=== PATIENT | male | born 1955 | race Caucasian/White ===

== ENCOUNTER 2016-11-26 11:59 | Inpatient (IN) | payer OTHER ==
[2016-11-26 12:20] VITALS: RESP 20
--- NOTE | 2016-11-26 14:07 | C.PDOC ---
History Of Present Illness 61M c/o diffuse abd pain x3 days, worse today. took "liquid" yesterday that made him have diarrhea. no n/v. subjective fever last night. pmh dm, htn, hlp, HIV not on meds but says counts always undetectable every 3 months since 2000. Time Seen by Provider: 11/26/16 14:05 Chief Complaint (Nursing): Abdominal Pain Past Medical History Vital Signs: Last Vital Signs Temp 98.2 F 11/26/16 12:17 Pulse 110 H 11/26/16 12:17 Resp 20 11/26/16 12:17 BP 194/118 H 11/26/16 12:17 Pulse Ox 100 11/26/16 14:27 - Medical History PMH: Arthritis, Diabetes, HIV (undetectable), HTN, Hypercholesterolemia - [facility] Procedures ULTRASONOGRAPHY OF RIGHT AND LEFT HEART, TRANSESOPHAGEAL (09/10/16) Family History: States: Diabetes - Social History Hx Tobacco Use: Yes (1/2 pack daily) Hx Alcohol Use: No Hx Substance Use: No - Immunization History Hx Tetanus Toxoid Vaccination: Yes Hx Influenza Vaccination: Yes Hx Pneumococcal Vaccination: Yes Review Of Systems Except As Marked, All Systems Reviewed And Found Negative. Constitutional: Positive for: Fever, Malaise Cardiovascular: Negative for: Chest Pain Respiratory: Negative for: Cough, Shortness of Breath Gastrointestinal: Positive for: Abdominal Pain, Diarrhea. Negative for: Nausea , Vomiting, Melena, Hematochezia Genitourinary: Negative for: Dysuria, Frequency, Incontinence Neurological: Negative for: Weakness, Numbness, Headache Physical Exam - Physical Exam Appears: Well, Non-toxic, No Acute Distress Skin: Warm, Dry Head: Atraumatic Eye(s): bilateral: PERRL Oral Mucosa: Dry Tongue: No Lesions Cardiovascular: Rhythm Regular Respiratory: No Decreased Breath Sounds, No Accessory Muscle Use, No Rales, No Rhonchi, No Wheezing Gastrointestinal/Abdominal: Bowel Sounds, Soft, Tenderness (diffuse mainly LLQ) , No Distention, No Guarding, No Rebound Extremity: No Swelling Pulses: Left Radial: Normal, Right Radial: Normal Neurological/Psych: Oriented x3, Other (no focal deficits) ED Course And Treatment - Laboratory Results Result Diagrams: 11/26/16 14:47 11/26/16 14:47 O2 Sat by Pulse Oximetry: 100 Disposition - Disposition Disposition: HOSPITALIZED Disposition Time: 16:53 Condition: STABLE - Clinical Impression Clinical Impression: Pancreatitis
[2016-11-26] MEDS ORDERED: Sodium Chloride 0.9% 1,000 ML IV ONE (14:23)
[2016-11-26 14:51] LABS: BASO # 0.1 K/uL (0.0-0.2); BASO % 0.7 % (0.0-2.0); EOS # 0.1 K/uL (0.0-0.7); HEMATOCRIT 46.7 % (35.0-51.0); LYMPH # 1.7 K/uL (1.0-4.3); LYMPH % 13.4 % (20.0-40.0); MEAN CELL VOLUME 87.1 fL (80.0-94.0); MEAN CORPUSCULAR HEMOGLOBIN 30.7 pg (27.0-31.0); MEAN CORPUSCULAR HGB CONC 35.3 g/dL (33.0-37.0); MEAN PLATELET VOLUME 9.1 fL (7.2-11.7); MONO # 0.8 K/uL (0.0-0.8); MONO % 6.6 % (0.0-10.0); NRBC % 0.1 % (0.0-2.0); WHITE BLOOD COUNT 12.4 K/uL (4.8-10.8)
[2016-11-26 14:56] LABS: GRANULAR CAST 1 /lpf (0-1); RBC URINE 11 /hpf (0-3); URINE BILIRUBIN NEGATIVE (NEGATIVE); URINE BLOOD 1+ (NEGATIVE); URINE COLOR Yellow (YELLOW); URINE GLUCOSE (UA) 3+ mg/dL (Normal); URINE HYALINE CAST 0-2 /lpf (0-2); URINE KETONE NEGATIVE (NEGATIVE); URINE LEUKOCYTE ESTERASE NEG Leu/uL (Negative); URINE PROTEIN 2+ mg/dL (NEGATIVE); WBC URINE 2 /hpf (0-5)
[2016-11-26] MEDS ORDERED: Morphine 4 MG/ML VIAL ONE (14:58)
[2016-11-26 15:08] LABS: CHLORIDE 87 mmol/L (98-107); POTASSIUM 4.5 mmol/L (3.6-5.2); SODIUM 131 mmol/L (132-148)
[2016-11-26 15:10] LABS: GFR AFRICAN-AMERICAN > 60
[2016-11-26 15:11] LABS: ALKALINE PHOSPHATASE 99 U/L (38-126); ALT/SGPT 59 U/L (21-72); AST/SGOT 25 U/L (17-59); BILIRUBIN,TOTAL 1.2 mg/dL (0.2-1.3); BLOOD UREA NITROGEN 13 mg/dL (9-20); CALCIUM 9.2 mg/dl (8.6-10.4); CARBON DIOXIDE 31 mmol/L (22-30); GLUCOSE,RANDOM 335 mg/dL (75-110); TOTAL PROTEIN 8.5 g/dL (6.3-8.3)
[2016-11-26] MEDS ORDERED: Iodixanol 320 MG/ML 200 ML BOTTLE IV ONE (15:31)
--- NOTE | 2016-11-26 16:50 | CT ---
PROCEDURE: CT Abdomen and Pelvis with contrast HISTORY: Abdominal pain mainly LLQ COMPARISON: None. TECHNIQUE: Multidetector CT scan of the abdomen and pelvis was performed after intravenous administration of contrast. Oral contrast was not administered. Contrast dose: 100 ML VISIPAQUE 320 Radiation dose: Total exam DLP = 708.73 mGy-cm. FINDINGS: LOWER THORAX: There is bibasilar subsegmental atelectasis do. LIVER: There is mild hepatomegaly and diffuse fatty infiltration in the liver. There is no focal lesion or intrahepatic biliary ductal dilatation. GALLBLADDER AND BILE DUCTS: There are no calcified gallstones, wall thickening or pericholecystic fluid. PANCREAS: The pancreas is normal in size and there is homogeneous enhancement without calcifications or ductal dilatation. SPLEEN: There is mild splenomegaly. There is no focal lesion. ADRENALS: Both adrenal glands are normal in size without discrete nodule. KIDNEYS AND URETERS: Both kidneys are normal in size and there is homogeneous enhancement. There are small cortical cyst in bone kidneys. There is nonspecific perinephric fat stranding. VASCULATURE: Normal in caliber. No aortic aneurysm. BOWEL: The small bowel loops are normal in caliber. There is sigmoid diverticulosis without CT evidence for acute diverticulitis. APPENDIX: Normal appendix. PERITONEUM: No free fluid. No free air. LYMPH NODES: Unremarkable. No enlarged lymph nodes. BLADDER: Normal in appearance. REPRODUCTIVE: There is mild enlargement of the prostate gland. BONES: There are bilateral pars interarticularis defects at L5 with grade 1 anterior listhesis of L5 on S1 and disc desiccation. . There is a focal area of sclerosis in the left humeral head statistically most compatible with a bone island. OTHER FINDINGS: There are bilateral small fat containing inguinal hernias. There is a small sliding hiatal hernia. IMPRESSION: 1. Mild hepatosplenomegaly and hepatic steatosis. 2. Sigmoid diverticulosis without CT evidence for acute diverticulitis. 3. Additional comments as described above.
--- NOTE | 2016-11-26 18:30 | US ---
HISTORY: pancreatitis, abd pain COMPARISON: None. TECHNIQUE: Sonographic evaluation of the right upper quadrant of the abdomen. FINDINGS: LIVER: Measures 19.3 cm in length there is diffuse increased echogenicity of the liver parenchyma. No mass. No intrahepatic bile duct dilatation. GALLBLADDER: No gallstones, wall thickening or pericholecystic fluid. COMMON BILE DUCT: Measures 5 mm. No stones. No dilatation. PANCREAS: The visualized pancreas is heterogeneous. There is no ductal dilatation. The tail of the pancreas could not be evaluated. RIGHT KIDNEY: Measures 12.8 cm in length. Normal echogenicity. No calculus, mass, or hydronephrosis. There is a 0.7 x 0.5 x 0.6 cm cyst in the upper pole and a 0.7 x 0.4 x 0.5 cm cyst in the interpolar region. AORTA: No aneurysmal dilatation. IVC: Unremarkable. OTHER FINDINGS: None . IMPRESSION: Limited evaluation of the pancreas reveals heterogeneous echotexture, nonspecific. No ductal dilatation of fluid collection. Mild hepatomegaly. Diffuse increased echogenicity in the liver may reflect hepatic steatosis however parenchymal infectious/ inflammatory etiologies cannot be entirely excluded. Clinical and laboratory correlation is advised. No cholelithiasis or biliary dilatation.
--- NOTE | 2016-11-26 19:29 | CP.PCM.HP ---
Present on Admission - Present on Admission Any Indicators Present on Admission: No Past Patient History - Infectious Disease Hx of Infectious Diseases: None - Past Medical History & Family History Past Medical History?: Yes - Past Social History Smoking Status: Heavy Smoker > 10 Cigarettes Daily - CARDIAC Hx Hypercholesterolemia: Yes Hx Hypertension: Yes - PULMONARY Hx Respiratory Disorders: No - NEUROLOGICAL Hx Neurological Disorder: No - HEENT Hx HEENT Problems: No - RENAL Hx Chronic Kidney Disease: No - ENDOCRINE/METABOLIC Hx Diabetes Mellitus Type 2: Yes - HEMATOLOGICAL/ONCOLOGICAL Hx Human Immunodeficiency Virus (HIV): Yes (undetectable) - INTEGUMENTARY Hx Dermatological Problems: No - MUSCULOSKELETAL/RHEUMATOLOGICAL Hx Arthritis: Yes - GASTROINTESTINAL Hx Gastrointestinal Disorders: No - GENITOURINARY/GYNECOLOGICAL Hx Genitourinary Disorders: No - PSYCHIATRIC Hx Substance Use: No - SURGICAL HISTORY Hx Surgeries: Yes Hx Cardiac Catheterization: Yes (3 yrs ago normal) Hx Vascular Surgery: No - ANESTHESIA Hx Anesthesia: No Hx Anesthesia Reactions: No Hx Malignant Hyperthermia: No Meds Home Medications: Home Medication List Medication Instructions Recorded Confirmed Type Lisinopril [Zestril] 10 mg PO DAILY #30 tab 11/28/16 Rx amLODIPine [Norvasc] 10 mg PO DAILY tab 11/28/16 Rx amLODIPine [Norvasc] 10 mg PO STAT #30 tab 11/28/16 Rx Allergies/Adverse Reactions: Allergies Allergy/AdvReac Type Severity Reaction Status Date / Time No Known Allergies Allergy Verified 11/26/16 12:16 Results - Vital Signs Recent Vital Signs: Last Vital Signs Temp 97.7 F 11/26/16 19:00 Pulse 97 H 11/26/16 19:00 Resp 20 11/26/16 19:00 BP 149/94 H 11/26/16 19:00 Pulse Ox 97 11/26/16 19:00 - Labs Result Diagrams: 11/26/16 14:47 11/27/16 11:33 Assessment & Plan - Assessment and Plan (Free Text) Plan: lisinoril metformin protonix lovenox other med no abtibiotic yet id ocnsult with dr. kathy esposito same no other complaints dr. farias for abd pain npo ivf
[2016-11-26] MEDS ORDERED: Potassium Ch 20mEq in D5-1/2NS 1,000 ML IV SCH (19:30)
[2016-11-27] MEDS ORDERED: Sodium Chloride 0.9% 1,000 ML IV SCH ×3 (06:45→11:24)
[2016-11-27] MEDS: (Novolin R) Insulin Human Regular 100 units/ml vial SC SCH ×4 (08:30→21:14)
--- NOTE | 2016-11-27 09:39 | CP.PCM.CON ---
<Luz Thornton - Last Filed: 11/27/16 09:39> History of Present Illness - History of Present Illness History of Present Illness: Gastroenterology Fellow/PGY4 Consult Note 61 year old male with history of Diabetes, Hypertension, Hyperlipidemia, Arthritis, TIA, and HIV not on HAART therapy followed by Dr. Orosco presenting with abdominal pain. Patient describes URI 1.5 weeks ago, self treated with ten packs of extra strength tylenol, three packs of OTC antibiotics from [place], and two bottles of Nyquil. During this time he did not have a bowel movement and developed abdominal pain four days ago. He took Mg citrate three days ago with resultant recurrent diarrheal episodes for 24 hours. the pain subsided slightly. Yesterday, he had chicken broth followed by severe bilateral upper abdomen pain leading to ER presentation. No prior EGD or colonoscopy. Associated sweats today but notes pain is slightly improved, pain scale 6-7/10. Denies acid reflux, indigestion, bloating, heartburn, dysphagia, odynophagia, hematemesis, melena, hematochezia, or weight loss. Admits to daily Motrin use of two tablets for arthritis. No prior EGD or colonoscopy. Notes HIV has been undetectable since 2000 with follow up appointment with Dr. Orosco on 12/10/16. EGD approximately 39 years of age endorsed to have PUD. No prior colonoscopy. Family-denies colon cancer, liver cancer Social-1/2ppd since 13 years old, social alcohol use, marijuana as a teenager Surgery- catheterization 2 years ago Review of Systems - Review of Systems Review of Systems: A 12-poin treview of systems negative except for as above Past Patient History - Infectious Disease Hx of Infectious Diseases: None - Past Medical History & Family History Past Medical History?: Yes - Past Social History Smoking Status: Heavy Smoker > 10 Cigarettes Daily - CARDIAC Hx Hypercholesterolemia: Yes Hx Hypertension: Yes - PULMONARY Hx Respiratory Disorders: No - NEUROLOGICAL Hx Neurological Disorder: No - HEENT Hx HEENT Problems: No - RENAL Hx Chronic Kidney Disease: No - ENDOCRINE/METABOLIC Hx Diabetes Mellitus Type 2: Yes - HEMATOLOGICAL/ONCOLOGICAL Hx Human Immunodeficiency Virus (HIV): Yes (undetectable) - INTEGUMENTARY Hx Dermatological Problems: No - MUSCULOSKELETAL/RHEUMATOLOGICAL Hx Arthritis: Yes - GASTROINTESTINAL Hx Gastrointestinal Disorders: No - GENITOURINARY/GYNECOLOGICAL Hx Genitourinary Disorders: No - PSYCHIATRIC Hx Substance Use: No - SURGICAL HISTORY Hx Surgeries: Yes Hx Cardiac Catheterization: Yes (3 yrs ago normal) Hx Vascular Surgery: No - ANESTHESIA Hx Anesthesia: No Hx Anesthesia Reactions: No Hx Malignant Hyperthermia: No Meds Allergies/Adverse Reactions: Allergies Allergy/AdvReac Type Severity Reaction Status Date / Time No Known Allergies Allergy Verified 11/26/16 12:16 - Medications Medications: Current Medications Enoxaparin Sodium (Lovenox) 30 mg SC DAILY [facility] Gabapentin (Neurontin) 400 mg PO BID [facility] Potassium Chloride/Dextrose/Sod Cl (Potassium Chl 20 Meq In D5-1/2ns) 1,000 mls @ 60 mls/hr IV .[id number] [facility] Last Admin: 11/26/16 21:22 Dose: 60 mls/hr Sodium Chloride (Sodium Chloride 0.9%) 1,000 mls @ 175 mls/hr IV .Q5H43M [facility] Last Admin: 11/27/16 08:48 Dose: 175 mls/hr Influenza Virus Vaccine (Afluria) 45 mcg IM .ONCE ONE Stop: 11/28/16 10:01 Insulin Human Regular (Novolin R) 0 unit SC ACHS [facility] PRN Reason: Protocol Last Admin: 11/27/16 08:30 Dose: Not Given Lisinopril (Zestril) 5 mg PO DAILY [facility] Pantoprazole Sodium (Protonix Inj) 40 mg IVP DAILY [facility] Rosuvastatin Calcium (Crestor) 5 mg PO HS [facility] Last Admin: 11/26/16 21:21 Dose: 5 mg Physical Exam - Constitutional Appears: Non-toxic, No Acute Distress - Head Exam Head Exam: ATRAUMATIC, NORMOCEPHALIC - Eye Exam Eye Exam: EOMI, PERRL Pupil Exam: PERRL. absent: Miosis, Mydriatic - ENT Exam ENT Exam: Mucous Membranes Moist, Normal Oropharynx - Neck Exam Neck exam: Positive for: Full Rom, Normal Inspection - Respiratory Exam Respiratory Exam: Clear to Auscultation Bilateral. absent: Rales, Rhonchi, Wheezes - Cardiovascular Exam Cardiovascular Exam: RRR, +S1, +S2. absent: Gallop, Rubs - GI/Abdominal Exam GI & Abdominal Exam: Normal Bowel Sounds, Soft, Tenderness. absent: Distended, Firm, Guarding, Organomegaly, Rebound, Rigid Additional comments: epigastric tenderness to palpation, negative Jones's sign - Extremities Exam Extremities exam: Positive for: full ROM. Negative for: pedal edema - Neurological Exam Neurological exam: Alert - Psychiatric Exam Psychiatric exam: Normal Affect, Normal Mood - Skin Skin Exam: Dry, Intact, Normal Color, Warm Results - Vital Signs Recent Vital Signs: Last Vital Signs Temp 98.0 F 11/27/16 07:48 Pulse 83 11/27/16 07:48 Resp 20 11/27/16 07:48 BP 155/102 H 11/27/16 07:48 Pulse Ox 97 11/27/16 07:48 - Labs Result Diagrams: 11/26/16 14:47 11/26/16 14:47 Labs: Laboratory Results - last 24 hr 11/26/16 11/27/16 21:23 06:55 POC Glucose (mg/dL) 202 H 208 H Assessment & Plan - Assessment and Plan (Free Text) Assessment: 61 year old male with history of Diabetes, Hypertension, Hyperlipidemia, Arthritis, TIA, and HIV not on HAART therapy followed by Dr. Orosco presenting with abdominal pain. CT A/P and Ultrasound without gallstones, biliary dilatation, or inflammatory changes of pancreas. EGD at approximately 39 years of age endorsed to have PUD. No prior colonoscopy. Chemical pancreatitis Abdominal pain Plan: >multiple medications consumed with self treatment of recent URI followed by Mg citrate >elevated lipase, epigastric pain with deep radiation to back >continue supportive care: IVFs, PPI >advance diet as tolerated >trial clear liquids >counselled on NSAID use and endorsed history of PUD >benefit from elective endoscopic evaluation >if symptoms persist inpatient , may consider inpatient evaluation, otherwise outpatient follow up >further recommendations based on clinical course <Olvin Martínez - Last Filed: 11/27/16 14:56> Meds - Medications Medications: Current Medications Acetaminophen (Tylenol 325mg Tab) 650 mg PO Q6 PRN PRN Reason: Headache Last Admin: 11/27/16 10:45 Dose: 650 mg Docusate Sodium (Colace) 100 mg PO DAILY [facility] Last Admin: 11/27/16 13:02 Dose: 100 mg Enoxaparin Sodium (Lovenox) 30 mg SC DAILY [facility] Last Admin: 11/27/16 10:44 Dose: 30 mg Gabapentin (Neurontin) 400 mg PO BID [facility] Last Admin: 11/27/16 10:44 Dose: 400 mg Sodium Chloride (Sodium Chloride 0.45%) 1,000 mls @ 150 mls/hr IV .Q6H40M ONE Stop: 11/27/16 18:03 Last Admin: 11/27/16 12:47 Dose: 150 mls/hr Influenza Virus Vaccine (Afluria) 45 mcg IM .ONCE ONE Stop: 11/28/16 10:01 Insulin Human Regular (Novolin R) 0 unit SC ACHS [facility] PRN Reason: Protocol Last Admin: 11/27/16 12:45 Dose: 1 unit Lisinopril (Zestril) 5 mg PO DAILY [facility] Last Admin: 11/27/16 10:44 Dose: 5 mg Lisinopril (Zestril) 10 mg PO DAILY [facility] Pantoprazole Sodium (Protonix Inj) 40 mg IVP DAILY [facility] Last Admin: 11/27/16 10:45 Dose: 40 mg Rosuvastatin Calcium (Crestor) 5 mg PO HS [facility] Last Admin: 11/26/16 21:21 Dose: 5 mg Simethicone (Mylicon Chew Tab) 80 mg PO DAILY [facility] Last Admin: 11/27/16 13:02 Dose: 80 mg Results - Vital Signs Recent Vital Signs: Last Vital Signs Temp 98.0 F 11/27/16 07:48 Pulse 83 11/27/16 07:48 Resp 20 11/27/16 07:48 BP 155/102 H 11/27/16 07:48 Pulse Ox 97 11/27/16 07:48 - Labs Result Diagrams: 11/26/16 14:47 11/27/16 11:33 Labs: Laboratory Results - last 24 hr 11/26/16 11/27/16 11/27/16 21:23 06:55 11:15 Sodium Potassium Chloride Carbon Dioxide Anion Gap BUN Creatinine Est GFR ( Amer) Est GFR (Non-Af Amer) POC Glucose (mg/dL) 202 H 208 H 288 H Random Glucose Calcium Lipase 11/27/16 11:33 Sodium 129 L Potassium 4.0 Chloride 90 L Carbon Dioxide 28 Anion Gap 16 BUN 13 Creatinine 0.7 L Est GFR ( Amer) > 60 Est GFR (Non-Af Amer) > 60 POC Glucose (mg/dL) Random Glucose 307 H Calcium 8.8 Lipase 264 Attending/Attestation - Attestation I have personally seen and examined this patient.: Yes I have fully participated in the care of the patient.: Yes I have reviewed all pertinent clinical information: Yes Notes (Text): Patient seen and examined with GI fellow. Agree with her note as documented above with the following additions/exceptions. This is a 61 year old male with h/o HTN, DM, HIV who presents to hospital with complaint of abdominal pain. He is found to have mild chemical pancreatitis with normal pancreas on imaging. Abdominal sonogram without evidence of gallstones. He reports diarrhea in relation to taking magnesium citrate for constipation. He does admit to daily NSAID usage. He states that his abdominal pain is overall improved today. No nausea or vomiting. Will start on trial of clear liquids. Pain control, antiemetic therapy as needed. Continue PPI therapy for possibility of PUD/ gastritis. He would benefit from outpatient screening colonoscopy. Will continue to follow and make recommendations depending on patient's clinical course. 11/27/16 14:52
[2016-11-27] MEDS ORDERED: Pantoprazole 40 mg EC Tab PO SCH (10:00)
[2016-11-27] MEDS ORDERED: Enoxaparin 40 mg Syringe SC SCH (10:00)
[2016-11-27] MEDS: Enoxaparin 30 mg Syringe SC SCH (10:44)
[2016-11-27] MEDS ORDERED: Sodium Chloride 0.45% 1,000 ML IV ONE (11:24)
[2016-11-27 11:57] LABS: CHLORIDE 90 mmol/L (98-107); SODIUM 129 mmol/L (132-148)
[2016-11-27 12:00] LABS: BLOOD UREA NITROGEN 13 mg/dL (9-20); CARBON DIOXIDE 28 mmol/L (22-30); GFR AFRICAN-AMERICAN > 60
[2016-11-27 12:01] LABS: CALCIUM 8.8 mg/dl (8.6-10.4); GLUCOSE,RANDOM 307 mg/dL (75-110)
--- NOTE | 2016-11-27 12:08 | CP.PCM.PN ---
<Shazia Gutiérrez H - Last Filed: 11/27/16 12:04> Subjective - Date & Time of Evaluation Date of Evaluation: 11/27/16 Time of Evaluation: 08:05 - Subjective Subjective: PGY2 Medicine Note - Dr. Thom Tanner: Patient is a 61 year old male with PMHx of arthritis, DM, HIV, HTN and hyperlipidemia admitted to hospital for pancreatitis last night. Patient reports abdominal pain radiating to his back intermittently for many weeks which has worsened over the past 5 days. Patient says he has been constipated. He took a laxative 3 days ago and had a lot of diarrhea. Patient denies alcohol use since [place]. Patient denies fever, chills, chest pain, SOB , nausea, vomiting, dysuria. Objective - Vital Signs/Intake and Output Vital Signs (last 24 hours): Temp Pulse Resp BP Pulse Ox 98.0 F 83 20 155/102 H 97 11/27/16 07:48 11/27/16 07:48 11/27/16 07:48 11/27/16 07:48 11/27/16 07:48 Intake and Output: 11/27/16 11/27/16 06:59 18:59 Intake Total 700 Balance 700 - Medications Medications: Current Medications Acetaminophen (Tylenol 325mg Tab) 650 mg PO Q6 PRN PRN Reason: Headache Last Admin: 11/27/16 10:45 Dose: 650 mg Enoxaparin Sodium (Lovenox) 30 mg SC DAILY [facility] Last Admin: 11/27/16 10:44 Dose: 30 mg Gabapentin (Neurontin) 400 mg PO BID [facility] Last Admin: 11/27/16 10:44 Dose: 400 mg Sodium Chloride (Sodium Chloride 0.45%) 1,000 mls @ 150 mls/hr IV .Q6H40M ONE Stop: 11/27/16 18:03 Influenza Virus Vaccine (Afluria) 45 mcg IM .ONCE ONE Stop: 11/28/16 10:01 Insulin Human Regular (Novolin R) 0 unit SC ACHS [facility] PRN Reason: Protocol Last Admin: 11/27/16 08:30 Dose: Not Given Lisinopril (Zestril) 5 mg PO DAILY [facility] Last Admin: 11/27/16 10:44 Dose: 5 mg Lisinopril (Zestril) 10 mg PO DAILY [facility] Pantoprazole Sodium (Protonix Inj) 40 mg IVP DAILY [facility] Last Admin: 11/27/16 10:45 Dose: 40 mg Rosuvastatin Calcium (Crestor) 5 mg PO HS [facility] Last Admin: 11/26/16 21:21 Dose: 5 mg - Labs Labs: 11/27/16 11:33 - Constitutional Appears: Non-toxic, No Acute Distress - Head Exam Head Exam: NORMAL INSPECTION - Eye Exam Eye Exam: EOMI - ENT Exam ENT Exam: Mucous Membranes Moist - Respiratory Exam Respiratory Exam: Clear to Ausculation Bilateral, NORMAL BREATHING PATTERN. absent: Rales, Rhonchi, Wheezes - Cardiovascular Exam Cardiovascular Exam: REGULAR RHYTHM, +S1, +S2. absent: Gallop, Rubs, Murmur - GI/Abdominal Exam GI & Abdominal Exam: Soft, Tenderness, Normal Bowel Sounds. absent: Firm, Guarding - Extremities Exam Extremities Exam: Normal Capillary Refill. absent: Pedal Edema - Neurological Exam Neurological Exam: Alert, Oriented x3 - Psychiatric Exam Psychiatric exam: Normal Affect, Normal Mood - Skin Skin Exam: Normal Color, Warm Assessment and Plan - Assessment and Plan (Free Text) Plan: Pancreatitis Lipas 854 gallbladder US: pancreas - heterogeneous echotexture. No ductal dilatation of fluid collection; mild hepatosplenomegaly. diffuse increased echogenicity of liver Abd/Pelvis CT - mild hepatosplenomegaly and hepatic steatosis. sigmoid diverticulosis without CT evidence of acute diverticulitis GI consult - Dr. Holder- help appreciated Clear liquid diet IVF DMII Accuchecks ACHs RISS HIV F/U viral load HTN continue home med zestril 5mg PO daily --> increasing to 10mg because of increased BP secondary to necessary fluids Prophylaxis Protonix 40mg PO daily Lovenox 40mg SC daily <Carrillo Tanner - Last Filed: 11/27/16 22:41> Objective - Vital Signs/Intake and Output Vital Signs (last 24 hours): Temp Pulse Resp BP Pulse Ox 98 F 66 20 192/110 H 97 11/27/16 15:00 11/27/16 15:00 11/27/16 15:00 11/27/16 16:05 11/27/16 15:00 Intake and Output: 11/27/16 11/28/16 18:59 06:59 Intake Total 1500 Balance 1500 - Medications Medications: Current Medications Acetaminophen (Tylenol 325mg Tab) 650 mg PO Q6 PRN PRN Reason: Headache Last Admin: 11/27/16 10:45 Dose: 650 mg Amlodipine Besylate (Norvasc) 10 mg PO DAILY [facility] Docusate Sodium (Colace) 100 mg PO DAILY [facility] Last Admin: 11/27/16 13:02 Dose: 100 mg Enoxaparin Sodium (Lovenox) 30 mg SC DAILY [facility] Last Admin: 11/27/16 10:44 Dose: 30 mg Gabapentin (Neurontin) 400 mg PO BID [facility] Last Admin: 11/27/16 17:36 Dose: 400 mg Hydromorphone HCl (Dilaudid) 1 mg IVP Q8 PRN PRN Reason: Pain Influenza Virus Vaccine (Afluria) 45 mcg IM .ONCE ONE Stop: 11/28/16 10:01 Insulin Human Regular (Novolin R) 0 unit SC ACHS [facility] PRN Reason: Protocol Last Admin: 11/27/16 21:14 Dose: Not Given Lisinopril (Zestril) 5 mg PO DAILY [facility] Last Admin: 11/27/16 10:44 Dose: 5 mg Lisinopril (Zestril) 10 mg PO DAILY [facility] Pantoprazole Sodium (Protonix Inj) 40 mg IVP DAILY [facility] Last Admin: 11/27/16 10:45 Dose: 40 mg Rosuvastatin Calcium (Crestor) 5 mg PO HS [facility] Last Admin: 11/27/16 21:13 Dose: 5 mg Simethicone (Mylicon Chew Tab) 80 mg PO DAILY [facility] Last Admin: 11/27/16 13:02 Dose: 80 mg - Labs Labs: 11/27/16 11:33 Attending/Attestation - Attestation I have personally seen and examined this patient.: Yes I have fully participated in the care of the patient.: Yes I have reviewed all pertinent clinical information, including history, physical exam and plan: Yes Notes (Text): 11/27/16 22:40 case seen and discussed with staff and resident mx as agreed
[2016-11-27] MEDS: Simethicone 80 mg Chewtab PO SCH (13:02)
--- NOTE | 2016-11-27 17:47 | CP.PCM.PN ---
Subjective - Date & Time of Evaluation Date of Evaluation: 11/27/16 Time of Evaluation: 09:20 - Subjective Subjective: clinically same pt has bd pain in upper area Objective - Vital Signs/Intake and Output Vital Signs (last 24 hours): Temp Pulse Resp BP Pulse Ox 98 F 66 20 192/110 H 97 11/27/16 15:00 11/27/16 15:00 11/27/16 15:00 11/27/16 16:05 11/27/16 15:00 Intake and Output: 11/27/16 11/27/16 06:59 18:59 Intake Total 700 Balance 700 - Medications Medications: Current Medications Acetaminophen (Tylenol 325mg Tab) 650 mg PO Q6 PRN PRN Reason: Headache Last Admin: 11/27/16 10:45 Dose: 650 mg Amlodipine Besylate (Norvasc) 10 mg PO DAILY [facility] Docusate Sodium (Colace) 100 mg PO DAILY [facility] Last Admin: 11/27/16 13:02 Dose: 100 mg Enoxaparin Sodium (Lovenox) 30 mg SC DAILY [facility] Last Admin: 11/27/16 10:44 Dose: 30 mg Gabapentin (Neurontin) 400 mg PO BID [facility] Last Admin: 11/27/16 17:36 Dose: 400 mg Sodium Chloride (Sodium Chloride 0.45%) 1,000 mls @ 150 mls/hr IV .Q6H40M ONE Stop: 11/27/16 18:03 Last Admin: 11/27/16 12:47 Dose: 150 mls/hr Influenza Virus Vaccine (Afluria) 45 mcg IM .ONCE ONE Stop: 11/28/16 10:01 Insulin Human Regular (Novolin R) 0 unit SC ACHS [facility] PRN Reason: Protocol Last Admin: 11/27/16 17:30 Dose: 3 unit Lisinopril (Zestril) 5 mg PO DAILY [facility] Last Admin: 11/27/16 10:44 Dose: 5 mg Lisinopril (Zestril) 10 mg PO DAILY [facility] Pantoprazole Sodium (Protonix Inj) 40 mg IVP DAILY [facility] Last Admin: 11/27/16 10:45 Dose: 40 mg Rosuvastatin Calcium (Crestor) 5 mg PO HS [facility] Last Admin: 11/26/16 21:21 Dose: 5 mg Simethicone (Mylicon Chew Tab) 80 mg PO DAILY [facility] Last Admin: 11/27/16 13:02 Dose: 80 mg - Labs Labs: 11/27/16 11:33 - Constitutional Appears: Well - Head Exam Head Exam: ATRAUMATIC, NORMAL INSPECTION, NORMOCEPHALIC - Eye Exam Eye Exam: EOMI, Normal appearance, PERRL Pupil Exam: NORMAL ACCOMODATION, PERRL - ENT Exam ENT Exam: Mucous Membranes Moist, Normal Exam - Neck Exam Neck Exam: Full ROM, Normal Inspection. absent: Lymphadenopathy - Respiratory Exam Respiratory Exam: Decreased Breath Sounds - Cardiovascular Exam Cardiovascular Exam: REGULAR RHYTHM, +S1, +S2 - GI/Abdominal Exam GI & Abdominal Exam: Soft, Diminished Bowel Sounds - Rectal Exam Rectal Exam: Deferred Assessment and Plan (1) Chest discomfort Status: Acute (2) Diabetes Status: Chronic (3) HIV antibody positive Status: Chronic (4) Hyperlipidemia Status: Chronic (5) Hypertension Status: Chronic (6) TIA (transient ischemic attack) Status: Resolved (7) Facial abscess Status: Acute (8) Pancreatitis Status: Acute - Assessment and Plan (Free Text) Plan: follow up with armen thacker amylse callahan and trail fo advance food diet coti as ordered
--- NOTE | 2016-11-27 17:58 | CP.PCM.CON ---
History of Present Illness - History of Present Illness History of Present Illness: 61 year old male with history of Diabetes, Hypertension, Hyperlipidemia, Arthritis, TIA, and HIV not on HAART therapy followed by Dr. Orosco presenting with abdominal pain. CT A/P and Ultrasound without gallstones, biliary dilatation, or inflammatory changes of pancreas. EGD at approximately 39 years of age endorsed to have PUD. No prior colonoscopy. Chemical pancreatitis Abdominal pain Review of Systems - Constitutional Constitutional: As Per HPI - EENT Eyes: absent: As Per HPI, Blind Spots, Blurred Vision, Change in Vision, Decreased Night Vision, Diplopia, Discharge, Dry Eye, Exophthalmos, Floaters, Irritation, Itchy Eyes, Loss of Peripheral Vision, Pain, Photophobia, Requires Corrective Lenses, Sees Flashes, Spots in Vision, Tunnel Vision, Other Visual Disturbances, Loss of Vision, Other Ears: absent: As Per HPI, Decreased Hearing, Ear Discharge, Ear Pain, Tinnitus, Abnormal Hearing, Disequilibrium, Dizziness, Other Nose/Mouth/Throat: absent: As Per HPI, Epistaxis, Nasal Congestion, Nasal Discharge, Nasal Obstruction, Nasal Trauma, Nose Pain, Post Nasal Drip, Sinus Pain, Sinus Pressure, Bleeding Gums, Change in Voice, Dental Pain, Dry Mouth, Dysphagia, Halitosis, Hoarsness, Lip Swelling, Mouth Lesions, Mouth Pain, Odynophagia, Sore Throat, Throat Swelling, Tongue Swelling, Facial Pain, Neck Pain, Neck Mass, Other - Cardiovascular Cardiovascular: absent: As Per HPI, Acrocyanosis, Chest Pain, Chest Pain at Rest , Chest Pain with Activity, Claudication, Diaphoresis, Dyspnea, Dyspnea on Exertion, Edema, Irregular Heart Rhythm, Pain Radiating to Arm/Neck/Jaw, Leg Edema, Leg Ulcers, Lightheadedness, Orthopnea, Palpitations, Paroxysmal Nocturnal Dyspnea, Pedal Edema, Radiating Pain, Rapid Heart Rate, Slow Heart Rate, Syncope, Other - Respiratory Respiratory: absent: As Per HPI, Cough, Dyspnea, Hemoptysis, Dyspnea on Exertion , Wheezing, Snoring, Stridor, Pain on Inspiration, Chest Congestion, Excessive Mucous Production, Change in Mucous Color, Pain with Coughing, Other - Gastrointestinal Gastrointestinal: As Per HPI, Abdominal Pain - Genitourinary Genitourinary: absent: As Per HPI, Change in Urinary Stream, Difficulty Urinating, Dysuria, Flank Pain, Hematuria, Pyuria, Nocturia, Urinary Incontinence, Urinary Frequency, Urinary Hesitance, Urinary Urgency, Voiding Freq/Small Amts, Freq UTI, Hx Renal/Bladder Calculi, Hx /Renal Surgery, Bladder Distension, Other - Musculoskeletal Musculoskeletal: absent: As Per HPI, Abnormal Gait, Arthralgias, Atrophy, Back Pain, Deformity, Joint Swelling, Limited Range of Motion, Loss of Height, Muscle Cramps, Muscle Weakness, Myalgias, Neck Pain, Numbness, Radiating Pain into Limb, Stiffness, Tingling, Other - Integumentary Integumentary: absent: As Per HPI, Acne, Alopecia, Bleeding Lesions, Change in Hair, Change in Nails, Change in Pigmentation, Changing Lesions, Dry Skin, Erythema, Furuncle, Hirsutism, Lesions, New Lesions, Non-Healing Lesions, Photosensitivity, Pruritus, Rash, Skin Pain, Skin Ulcer, Sores, Striae, Swelling , Unusual Bruising, Wounds, Jaundice, Other - Neurological Neurological: absent: As Per HPI, Abnormal Gait, Abnormal Hearing, Abnormal Movements, Abnormal Speech, Behavioral Changes, Burning Sensations, Confusion, Convulsions, Disequilibrium, Dizziness, Numbness, Focal Weakness, Frequent Falls , Headaches, Lack of Coordination, Loss of Vision, Memory Loss, Paresthesias, Radicular Pain, Restless Legs, Sensory Deficit, Syncope, Tingling, Tremor, Vertigo, Weakness, Other Visual Disturbances, Other - Psychiatric Psychiatric: absent: As Per HPI, Abnormal Sleep Pattern, Anhedonia, Anxiety, Auditory Hallucinations, Behavioral Changes, Change in Appetite, Change in Libido, Confusion, Depression, Difficulty Concentrating, Hallucinations, Homicidal Ideation, Hopelessness, Irritability, Memory Loss, Mood Swings, Panic Attacks, Paranoia, Suicidal Ideation, Visual Hallucinations, Tactile Hallucinations, Other - Endocrine Endocrine: absent: As Per HPI, Change in Body Appearance, Change in Libido, Cold Intolorance, Deepening of Voice, Excessive Sweating, Fatigue, Flushing, Heat Intolorance, Increase in Ring/Shoe/Hat Size, Palpitations, Polydipsia, Polyphagia, Polyuria, Other - Hematologic/Lymphatic Hematologic: absent: As Per HPI, Easy Bleeding, Easy Bruising, Lymphadenopathy, Other Past Patient History - Infectious Disease Hx of Infectious Diseases: None - Past Medical History & Family History Past Medical History?: Yes - Past Social History Smoking Status: Heavy Smoker > 10 Cigarettes Daily - CARDIAC Hx Hypercholesterolemia: Yes Hx Hypertension: Yes - PULMONARY Hx Respiratory Disorders: No - NEUROLOGICAL Hx Neurological Disorder: No - HEENT Hx HEENT Problems: No - RENAL Hx Chronic Kidney Disease: No - ENDOCRINE/METABOLIC Hx Diabetes Mellitus Type 2: Yes - HEMATOLOGICAL/ONCOLOGICAL Hx Human Immunodeficiency Virus (HIV): Yes (undetectable) - INTEGUMENTARY Hx Dermatological Problems: No - MUSCULOSKELETAL/RHEUMATOLOGICAL Hx Arthritis: Yes (R KNEE) - GASTROINTESTINAL Hx Gastrointestinal Disorders: No - GENITOURINARY/GYNECOLOGICAL Hx Genitourinary Disorders: No - PSYCHIATRIC Hx Substance Use: No - SURGICAL HISTORY Hx Surgeries: Yes Hx Cardiac Catheterization: Yes (3 yrs ago normal) Hx Vascular Surgery: No - ANESTHESIA Hx Anesthesia: No Hx Anesthesia Reactions: No Hx Malignant Hyperthermia: No Meds Allergies/Adverse Reactions: Allergies Allergy/AdvReac Type Severity Reaction Status Date / Time No Known Allergies Allergy Verified 11/26/16 12:16 - Medications Medications: Current Medications Acetaminophen (Tylenol 325mg Tab) 650 mg PO Q6 PRN PRN Reason: Headache Last Admin: 11/27/16 10:45 Dose: 650 mg Amlodipine Besylate (Norvasc) 10 mg PO DAILY [facility] Docusate Sodium (Colace) 100 mg PO DAILY [facility] Last Admin: 11/27/16 13:02 Dose: 100 mg Enoxaparin Sodium (Lovenox) 30 mg SC DAILY [facility] Last Admin: 11/27/16 10:44 Dose: 30 mg Gabapentin (Neurontin) 400 mg PO BID [facility] Last Admin: 11/27/16 17:36 Dose: 400 mg Sodium Chloride (Sodium Chloride 0.45%) 1,000 mls @ 150 mls/hr IV .Q6H40M ONE Stop: 11/27/16 18:03 Last Admin: 11/27/16 12:47 Dose: 150 mls/hr Influenza Virus Vaccine (Afluria) 45 mcg IM .ONCE ONE Stop: 11/28/16 10:01 Insulin Human Regular (Novolin R) 0 unit SC ACHS [facility] PRN Reason: Protocol Last Admin: 11/27/16 17:30 Dose: 3 unit Lisinopril (Zestril) 5 mg PO DAILY [facility] Last Admin: 11/27/16 10:44 Dose: 5 mg Lisinopril (Zestril) 10 mg PO DAILY [facility] Pantoprazole Sodium (Protonix Inj) 40 mg IVP DAILY [facility] Last Admin: 11/27/16 10:45 Dose: 40 mg Rosuvastatin Calcium (Crestor) 5 mg PO HS [facility] Last Admin: 11/26/16 21:21 Dose: 5 mg Simethicone (Mylicon Chew Tab) 80 mg PO DAILY [facility] Last Admin: 11/27/16 13:02 Dose: 80 mg Physical Exam - Constitutional Appears: Non-toxic, Cachectic, Chronically Ill - Head Exam Head Exam: NORMOCEPHALIC - Eye Exam Eye Exam: absent: Scleral icterus - ENT Exam ENT Exam: Mucous Membranes Dry, Normal External Ear Exam - Neck Exam Neck exam: Negative for: Lymphadenopathy - Respiratory Exam Respiratory Exam: Decreased Breath Sounds, Clear to Auscultation Bilateral - Cardiovascular Exam Cardiovascular Exam: REGULAR RHYTHM, +S1, +S2 - GI/Abdominal Exam GI & Abdominal Exam: Diminished Bowel Sounds, Distended, Guarding, Soft, Tenderness. absent: Rebound, Rigid - Rectal Exam Rectal Exam: Deferred - Exam Exam: NORMAL INSPECTION - Extremities Exam Extremities exam: Positive for: pedal pulses present. Negative for: calf tenderness, pedal edema - Back Exam Back exam: absent: CVA tenderness (L), CVA tenderness (R) - Neurological Exam Neurological exam: Alert, CN II-XII Intact, Oriented x3, Reflexes Normal - Psychiatric Exam Psychiatric exam: Normal Mood - Skin Skin Exam: Dry Results - Vital Signs Recent Vital Signs: Last Vital Signs Temp 98 F 11/27/16 15:00 Pulse 66 11/27/16 15:00 Resp 20 11/27/16 15:00 BP 192/110 H 11/27/16 16:05 Pulse Ox 97 11/27/16 15:00 - Labs Result Diagrams: 11/26/16 14:47 11/27/16 11:33 Labs: Laboratory Results - last 24 hr 11/26/16 11/27/16 11/27/16 21:23 06:55 11:15 Sodium Potassium Chloride Carbon Dioxide Anion Gap BUN Creatinine Est GFR ( Amer) Est GFR (Non-Af Amer) POC Glucose (mg/dL) 202 H 208 H 288 H Random Glucose Calcium Lipase 11/27/16 11:33 Sodium 129 L Potassium 4.0 Chloride 90 L Carbon Dioxide 28 Anion Gap 16 BUN 13 Creatinine 0.7 L Est GFR ( Amer) > 60 Est GFR (Non-Af Amer) > 60 POC Glucose (mg/dL) Random Glucose 307 H Calcium 8.8 Lipase 264 Assessment & Plan - Assessment and Plan (Free Text) Plan: pancreatitis hiv- asx cont rx
[2016-11-27] MEDS ORDERED: HYDROmorphone 1 mg/ml ISec IVP PRN (18:59)
[2016-11-28 07:45] VITALS: BP 146/88; PULSE 81; TEMP 97.1; O2SAT 98
--- NOTE | 2016-11-28 08:19 | CP.PCM.PN ---
<Luz Thornton - Last Filed: 11/28/16 08:16> Subjective - Date & Time of Evaluation Date of Evaluation: 11/28/16 Time of Evaluation: 08:16 - Subjective Subjective: Gastroenterology Fellow/PGY4 Progress Note Patient notes almost complete resolution of abdominal pain. Tolerated clear liquid diet. No bowel movement overnight. A 12-point review of systems negative except for as above. Objective - Vital Signs/Intake and Output Vital Signs (last 24 hours): Temp Pulse Resp BP Pulse Ox 97.1 F L 81 20 146/88 98 11/28/16 07:44 11/28/16 07:44 11/28/16 07:44 11/28/16 07:44 11/28/16 07:44 Intake and Output: 11/28/16 11/28/16 06:59 18:59 Intake Total 3100 Balance 3100 - Medications Medications: Current Medications Acetaminophen (Tylenol 325mg Tab) 650 mg PO Q6 PRN PRN Reason: Headache Last Admin: 11/27/16 10:45 Dose: 650 mg Amlodipine Besylate (Norvasc) 10 mg PO DAILY [facility] Docusate Sodium (Colace) 100 mg PO DAILY [facility] Last Admin: 11/27/16 13:02 Dose: 100 mg Enoxaparin Sodium (Lovenox) 30 mg SC DAILY [facility] Last Admin: 11/27/16 10:44 Dose: 30 mg Gabapentin (Neurontin) 400 mg PO BID [facility] Last Admin: 11/27/16 17:36 Dose: 400 mg Hydromorphone HCl (Dilaudid) 1 mg IVP Q8 PRN PRN Reason: Pain Influenza Virus Vaccine (Afluria) 45 mcg IM .ONCE ONE Stop: 11/28/16 10:01 Insulin Human Regular (Novolin R) 0 unit SC [facility] PRN Reason: Protocol Last Admin: 11/27/16 21:14 Dose: Not Given Lisinopril (Zestril) 5 mg PO DAILY [facility] Last Admin: 11/27/16 10:44 Dose: 5 mg Lisinopril (Zestril) 10 mg PO DAILY [facility] Pantoprazole Sodium (Protonix Inj) 40 mg IVP DAILY [facility] Last Admin: 11/27/16 10:45 Dose: 40 mg Rosuvastatin Calcium (Crestor) 5 mg PO HS [facility] Last Admin: 11/27/16 21:13 Dose: 5 mg Simethicone (Mylicon Chew Tab) 80 mg PO DAILY [facility] Last Admin: 11/27/16 13:02 Dose: 80 mg - Labs Labs: 11/27/16 11:33 - Constitutional Appears: Non-toxic, No Acute Distress - Head Exam Head Exam: ATRAUMATIC, NORMOCEPHALIC - Eye Exam Eye Exam: EOMI, PERRL Pupil Exam: PERRL. absent: Miosis, Mydriatic - ENT Exam ENT Exam: Mucous Membranes Moist, Normal Oropharynx - Neck Exam Neck Exam: Full ROM, Normal Inspection - Respiratory Exam Respiratory Exam: Clear to Ausculation Bilateral. absent: Rales, Rhonchi, Wheezes - Cardiovascular Exam Cardiovascular Exam: RRR, +S1, +S2. absent: Gallop, Rubs - GI/Abdominal Exam GI & Abdominal Exam: Soft, Normal Bowel Sounds. absent: Distended, Firm, Guarding, Rigid, Tenderness, Organomegaly, Rebound - Extremities Exam Extremities Exam: Full ROM. absent: Pedal Edema - Neurological Exam Neurological Exam: Alert, Awake - Psychiatric Exam Psychiatric exam: Normal Affect, Normal Mood - Skin Skin Exam: Dry, Intact, Normal Color, Warm Assessment and Plan - Assessment and Plan (Free Text) Assessment: 61 year old male with history of Diabetes, Hypertension, Hyperlipidemia, Arthritis, TIA, and HIV not on HAART therapy followed by Dr. Orosco presenting with abdominal pain. CT A/P and Ultrasound without gallstones, biliary dilatation, or inflammatory changes of pancreas. EGD at approximately 39 years of age endorsed to have PUD. No prior colonoscopy. Mild chemical pancreatitis Abdominal pain, resolved Plan: >pain resolved >advance to regular diet >continue H2 Lakisha PRN >counselled on limiting use of multiple medications simultaneously >if symptoms recur, recommend outpatient endoscopic evaluation >thank you for the opportunity to participate in the care of this patient <Iggy Holder - Last Filed: 11/28/16 09:37> Objective - Vital Signs/Intake and Output Vital Signs (last 24 hours): Temp Pulse Resp BP Pulse Ox 97.1 F L 81 20 146/88 98 11/28/16 07:44 11/28/16 07:44 11/28/16 07:44 11/28/16 07:44 11/28/16 07:44 Intake and Output: 11/28/16 11/28/16 06:59 18:59 Intake Total 3100 Balance 3100 - Medications Medications: Current Medications Acetaminophen (Tylenol 325mg Tab) 650 mg PO Q6 PRN PRN Reason: Headache Last Admin: 11/27/16 10:45 Dose: 650 mg Amlodipine Besylate (Norvasc) 10 mg PO DAILY [facility] Docusate Sodium (Colace) 100 mg PO DAILY [facility] Last Admin: 11/27/16 13:02 Dose: 100 mg Enoxaparin Sodium (Lovenox) 30 mg SC DAILY [facility] Last Admin: 11/27/16 10:44 Dose: 30 mg Gabapentin (Neurontin) 400 mg PO BID [facility] Last Admin: 11/27/16 17:36 Dose: 400 mg Hydromorphone HCl (Dilaudid) 1 mg IVP Q8 PRN PRN Reason: Pain Influenza Virus Vaccine (Afluria) 45 mcg IM .ONCE ONE Stop: 11/28/16 10:01 Insulin Human Regular (Novolin R) 0 unit SC ACHS [facility] PRN Reason: Protocol Last Admin: 11/28/16 08:30 Dose: 4 unit Lisinopril (Zestril) 5 mg PO DAILY [facility] Last Admin: 11/27/16 10:44 Dose: 5 mg Lisinopril (Zestril) 10 mg PO DAILY [facility] Pantoprazole Sodium (Protonix Inj) 40 mg IVP DAILY [facility] Last Admin: 11/27/16 10:45 Dose: 40 mg Rosuvastatin Calcium (Crestor) 5 mg PO HS [facility] Last Admin: 11/27/16 21:13 Dose: 5 mg Simethicone (Mylicon Chew Tab) 80 mg PO DAILY [facility] Last Admin: 11/27/16 13:02 Dose: 80 mg - Labs Labs: 11/27/16 11:33 Attending/Attestation - Attestation I have personally seen and examined this patient.: Yes I have fully participated in the care of the patient.: Yes I have reviewed all pertinent clinical information, including history, physical exam and plan: Yes Notes (Text): 11/28/16 09:33 I have seen and examined patient with GI fellow. No acute events overnight. He feels well and denies abdominal pain, nausea, vomiting, diarrhea, fever/ chills. Tolerating PO liquids without difficulty. Review of vitals from today are normal. DM / HTN Hyperlipidemia HIV Abdominal pain, resolved. Chemical pancreatitis without radiographic evidence of pancreatic abnormalities. - Advance diet to low sodium, diabetic, low fat as tolerated - Continue with oral H2 lakisha therapy as needed - Follow up ID recommendations regarding HIV management - Patient would benefit from outpatient elective age appropriate screening colonoscopy as well as follow up and pancreatic monitoring. No ongoing GI issues, will sign off case. Please reconsult as necessary, thank you.
--- NOTE | 2016-11-28 08:28 | CP.PCM.PN ---
Subjective - Date & Time of Evaluation Date of Evaluation: 11/28/16 Time of Evaluation: 11:00 - Subjective Subjective: Dr. Tanner service: Patient seen and examined in room with Dr. Tanner. He is not complaining of any pain at the moment and tolerating diet very well. He reports he has follow up for his HIV and Hep C as well. He will follow up with Dr. Tanner tomorrow afternoon in clinic. Objective - Vital Signs/Intake and Output Vital Signs (last 24 hours): Temp Pulse Resp BP Pulse Ox 97.1 F L 81 20 146/88 98 11/28/16 07:44 11/28/16 07:44 11/28/16 07:44 11/28/16 07:44 11/28/16 07:44 Intake and Output: 11/28/16 11/28/16 06:59 18:59 Intake Total 3100 Balance 3100 - Medications Medications: Current Medications Acetaminophen (Tylenol 325mg Tab) 650 mg PO Q6 PRN PRN Reason: Headache Last Admin: 11/27/16 10:45 Dose: 650 mg Amlodipine Besylate (Norvasc) 10 mg PO DAILY [facility] Docusate Sodium (Colace) 100 mg PO DAILY [facility] Last Admin: 11/27/16 13:02 Dose: 100 mg Enoxaparin Sodium (Lovenox) 30 mg SC DAILY [facility] Last Admin: 11/27/16 10:44 Dose: 30 mg Gabapentin (Neurontin) 400 mg PO BID [facility] Last Admin: 11/27/16 17:36 Dose: 400 mg Hydromorphone HCl (Dilaudid) 1 mg IVP Q8 PRN PRN Reason: Pain Influenza Virus Vaccine (Afluria) 45 mcg IM .ONCE ONE Stop: 11/28/16 10:01 Insulin Human Regular (Novolin R) 0 unit SC ACHS [facility] PRN Reason: Protocol Last Admin: 11/27/16 21:14 Dose: Not Given Lisinopril (Zestril) 5 mg PO DAILY [facility] Last Admin: 11/27/16 10:44 Dose: 5 mg Lisinopril (Zestril) 10 mg PO DAILY [facility] Pantoprazole Sodium (Protonix Inj) 40 mg IVP DAILY [facility] Last Admin: 11/27/16 10:45 Dose: 40 mg Rosuvastatin Calcium (Crestor) 5 mg PO HS [facility] Last Admin: 11/27/16 21:13 Dose: 5 mg Simethicone (Mylicon Chew Tab) 80 mg PO DAILY [facility] Last Admin: 11/27/16 13:02 Dose: 80 mg - Labs Labs: 11/27/16 11:33 - Constitutional Appears: Non-toxic, No Acute Distress - Respiratory Exam Respiratory Exam: Clear to Ausculation Bilateral. absent: Rhonchi, Wheezes - Cardiovascular Exam Cardiovascular Exam: REGULAR RHYTHM, RRR, +S1, +S2. absent: Gallop, Rubs - GI/Abdominal Exam GI & Abdominal Exam: Soft, Normal Bowel Sounds. absent: Distended, Guarding, Tenderness Assessment and Plan - Assessment and Plan (Free Text) Assessment: Pancreatitis 11/28: Discharged today, follow up in Dr. Tanner's office tomorrow afternoon. Lipas 854 gallbladder US: pancreas - heterogeneous echotexture. No ductal dilatation of fluid collection; mild hepatosplenomegaly. diffuse increased echogenicity of liver Abd/Pelvis CT - mild hepatosplenomegaly and hepatic steatosis. sigmoid diverticulosis without CT evidence of acute diverticulitis GI consult - Dr. Holder- help appreciated Clear liquid diet IVF DMII Accuchecks ACHs RISS HIV F/U viral load HTN continue home med zestril 5mg PO daily --> increasing to 10mg because of increased BP secondary to necessary fluids Prophylaxis Protonix 40mg PO daily Lovenox 40mg SC daily
[2016-11-28] MEDS: (Novolin R) Insulin Human Regular 100 units/ml vial SC SCH ×2 (08:30→12:37)
[2016-11-28] MEDS ORDERED: Influenza Virus Vaccine 45 mcg/0.5 ml Syr IM ONE (10:00)
[2016-11-28] MEDS: Enoxaparin 30 mg Syringe SC SCH (11:00)
[2016-11-28] MEDS: Simethicone 80 mg Chewtab PO SCH (11:00)
--- NOTE | 2016-11-28 12:36 | CP.PCM.PN ---
Subjective - Date & Time of Evaluation Date of Evaluation: 11/28/16 Time of Evaluation: 09:20 - Subjective Subjective: clinically same Objective - Vital Signs/Intake and Output Vital Signs (last 24 hours): Temp Pulse Resp BP Pulse Ox 97.1 F L 81 20 146/88 98 11/28/16 07:44 11/28/16 07:44 11/28/16 07:44 11/28/16 07:44 11/28/16 07:44 Intake and Output: 11/28/16 11/28/16 06:59 18:59 Intake Total 3100 Balance 3100 - Medications Medications: Current Medications Acetaminophen (Tylenol 325mg Tab) 650 mg PO Q6 PRN PRN Reason: Headache Last Admin: 11/27/16 10:45 Dose: 650 mg Amlodipine Besylate (Norvasc) 10 mg PO DAILY [facility] Last Admin: 11/28/16 11:00 Dose: 10 mg Docusate Sodium (Colace) 100 mg PO DAILY [facility] Last Admin: 11/28/16 11:00 Dose: 100 mg Enoxaparin Sodium (Lovenox) 30 mg SC DAILY [facility] Last Admin: 11/28/16 11:00 Dose: 30 mg Gabapentin (Neurontin) 400 mg PO BID [facility] Last Admin: 11/28/16 11:00 Dose: 400 mg Hydromorphone HCl (Dilaudid) 1 mg IVP Q8 PRN PRN Reason: Pain Insulin Human Regular (Novolin R) 0 unit SC ACHS [facility] PRN Reason: Protocol Last Admin: 11/28/16 08:30 Dose: 4 unit Lisinopril (Zestril) 10 mg PO DAILY [facility] Last Admin: 11/28/16 11:00 Dose: 10 mg Pantoprazole Sodium (Protonix Inj) 40 mg IVP DAILY [facility] Last Admin: 11/28/16 10:55 Dose: 40 mg Rosuvastatin Calcium (Crestor) 5 mg PO HS [facility] Last Admin: 11/27/16 21:13 Dose: 5 mg Simethicone (Mylicon Chew Tab) 80 mg PO DAILY [facility] Last Admin: 11/28/16 11:00 Dose: 80 mg - Labs Labs: 11/27/16 11:33 - Constitutional Appears: Well - Head Exam Head Exam: ATRAUMATIC, NORMAL INSPECTION, NORMOCEPHALIC - Eye Exam Eye Exam: EOMI, Normal appearance, PERRL Pupil Exam: NORMAL ACCOMODATION, PERRL - ENT Exam ENT Exam: Mucous Membranes Moist, Normal Exam - Neck Exam Neck Exam: Full ROM, Normal Inspection. absent: Lymphadenopathy - Respiratory Exam Respiratory Exam: Decreased Breath Sounds - Cardiovascular Exam Cardiovascular Exam: REGULAR RHYTHM, +S1, +S2 - GI/Abdominal Exam GI & Abdominal Exam: Soft, Diminished Bowel Sounds - Rectal Exam Rectal Exam: Deferred Assessment and Plan (1) Chest discomfort Status: Acute (2) Diabetes Status: Chronic (3) HIV antibody positive Status: Chronic (4) Hyperlipidemia Status: Chronic (5) Hypertension Status: Chronic (6) Chest pain Status: Resolved (7) Facial abscess Status: Acute (8) Pancreatitis Status: Acute - Assessment and Plan (Free Text) Plan: pt clinically same pain improved significantly id folow up with pmd office [place] or adv t o come to my office tomorrow for further work up
== END 2016-11-28 16:20 | disposition home or self-care (01) | DRG 204 ==
LOC: C.ER 11:59 → C.9E 16:53 → C.3T 18:22
PROVIDERS: ADMIT Internal Medicine Nephrology; ATTEND Internal Medicine Nephrology
DX: K85.90 Acute pancreatitis without necrosis or infection, unspecified (principal); I10 Essential (primary) hypertension; B19.20 Unspecified viral hepatitis C without hepatic coma; L02.01 Cutaneous abscess of face; E11.9 Type 2 diabetes mellitus without complications; F17.210 Nicotine dependence, cigarettes, uncomplicated; E78.00 Pure hypercholesterolemia, unspecified; K59.00 Constipation, unspecified; Z21 Asymptomatic human immunodeficiency virus [HIV] infection status; Z79.4 Long term (current) use of insulin; R07.9 Chest pain, unspecified

== ENCOUNTER → 2017-02-25 17:13 | Emergency (ER) | payer OTHER | END | disposition left against medical advice (07) | LOC: CANPREER → C.ER 17:13 | DX: Z02.89 Encounter for other administrative examinations (principal); Z00.00 Encounter for general adult medical examination without abnormal findings ==

== ENCOUNTER 2017-02-25 18:37 | Observation (INO) | payer OTHER ==
[2017-02-25 19:22] LABS: BASO % 0.5 % (0.0-2.0); EOS # 0.3 K/uL (0.0-0.7); EOS % 4.3 % (0.0-4.0); HEMATOCRIT 40.6 % (35.0-51.0); LYMPH # 1.6 K/uL (1.0-4.3); LYMPH % 23.9 % (20.0-40.0); MEAN CORPUSCULAR HEMOGLOBIN 30.4 pg (27.0-31.0); MEAN CORPUSCULAR HGB CONC 34.5 g/dL (33.0-37.0); MEAN PLATELET VOLUME 9.6 fL (7.2-11.7); MONO # 0.5 K/uL (0.0-0.8); MONO % 6.7 % (0.0-10.0); NRBC % 0.1 % (0.0-2.0); WHITE BLOOD COUNT 6.9 K/uL (4.8-10.8)
--- NOTE | 2017-02-25 19:45 | C.PDOC ---
History Of Present Illness 62 y/o male pmhx HTN, diabetes presents to the ED with complaints of lightheadedness lasting 1 minute at a time, intermittently for the past 11 days. Pt states on the 1st day he also had an episode of loss of vision lasting 10-15 seconds, seeing "all white." Pt went to [facility] yesterday who called patient today requesting them to go to ED for stroke evaluation. Pt currently denies any symptoms. Denies fever, chest pain, headache, vomiting, numbness or any other complaints. Time Seen by Provider: 02/25/17 18:53 Chief Complaint (Nursing): Dizziness/Lightheaded History Per: Patient History/Exam Limitations: no limitations Onset/Duration Of Symptoms: Days, Intermittent Episodes Current Symptoms Are (Timing): Gone Fall Associated With With Symptoms: No Severity: Mild Recent travel outside of the [place]: No - Symptoms Of CVA Recent Head Trauma: No Past Medical History Reviewed: Historical Data, Nursing Documentation, Vital Signs Vital Signs: Last Vital Signs Temp 98.2 F 02/25/17 18:50 Pulse 76 02/25/17 18:50 Resp 20 02/25/17 18:50 BP 167/95 H 02/25/17 18:50 Pulse Ox 99 02/25/17 20:28 - Medical History PMH: Arthritis, Diabetes, HIV (undetectable), HTN, Hypercholesterolemia - [facility] Procedures ULTRASONOGRAPHY OF RIGHT AND LEFT HEART, TRANSESOPHAGEAL (09/10/16) Family History: States: Diabetes - Social History Hx Tobacco Use: Yes (1/2 pack daily) Hx Alcohol Use: No Hx Substance Use: No - Immunization History Hx Tetanus Toxoid Vaccination: Yes Hx Influenza Vaccination: Yes Hx Pneumococcal Vaccination: Yes Review Of Systems Except As Marked, All Systems Reviewed And Found Negative. Constitutional: Negative for: Fever, Chills Eyes: Positive for: Vision Change (currently resolved) Cardiovascular: Positive for: Light Headedness (currently resolved). Negative for: Chest Pain Respiratory: Negative for: Shortness of Breath Gastrointestinal: Negative for: Vomiting Neurological: Negative for: Numbness, Headache Physical Exam - Physical Exam Additional Physical Exam Comments: Constitutional: No acute distress. Head: Normocephalic. Atraumatic. Eyes: PERRL. ENT: Moist mucous membranes. Neck: Supple. Cardiovascular: Regular rate. Radial pulse 2+ bilaterally. Chest: No tenderness. Respiratory: Clear to auscultation bilaterally. GI: Soft. Nontender. Nondistended. Back: No CVA tenderness. Musculoskeletal: No tenderness or swelling of extremities. Skin: No rash. Neurologic: Alert, no focal deficit. Oriented x 3. Cranial nerves II-XII intact. Sensation to light touch intact bilaterally. Motor 5/5 x 4. Gait normal. ED Course And Treatment - Laboratory Results Result Diagrams: 02/25/17 19:16 02/25/17 19:16 ECG: Interpreted By Me, Viewed By Me Interpretation Of ECG: No ST/T wave changes Rate From EC (BPM) O2 Sat by Pulse Oximetry: 99 (room air) Pulse Ox Interpretation: Normal NIHSS Stroke Scale - Date/Time Evaluation Performed Date Performed: 02/25/17 Time Performed: 19:00 - How Severe is the Stoke Level of Consciousness: 0=Alert LOC to Questions: 0=Both comments correct LOC to commands: 0=Obeys both correctly Best Gaze: 0=Normal Visual: 0=No visual loss Facial: 0=Normal Motor Arm - Left: 0=No drift Motor Arm - Right: 0=No drift Motor Leg - Left: 0=No drift Motor Leg - Right: 0=No drift Limb Ataxia: 0=Absent Sensory: 0=Normal Best Language: 0=No aphasia Dysarthia: 0=Normal articulation Extinction & Inattention (Neglect): 0=Normal, no object Score: 0 Severity Of Stroke: 0= No Stroke rTPA Inclusion/Exclusion - Refusal of Treatment Patient Refused Treatment: No - Inclusion Criteria for Altepase Patient is 18 years or Older: Yes The Clinical Diagnosis of Ischemic Stroke That is Causing a Potentially Disabling Neurological Deficit: No Time of Onset is Well Established to be Less Than 270 Minute Before Treatment Would Begin: No Risk/Benefit Discussed With Patient/Family Member Present: Yes Medical Decision Making Medical Decision Making: Plan: * CT head * CXR * EKG * labs, BGL * IV fluids CT HEAD-- EXAM: CT Head Without Intravenous Contrast CLINICAL HISTORY: 62 years old, male; Condition or disease; Headache; Additional info: Lightheadedness, vision loss x 10 seconds TECHNIQUE: Axial computed tomography images of the head/brain without intravenous contrast. This CT exam was performed using one or more of the following dose reduction techniques: automated exposure control, adjustment of the mA and/or kV according to patient size, and/or use of iterative reconstruction technique. COMPARISON: CT - HEAD W/O CONTRAST 09/08/2016 8:40:35 PM FINDINGS: Brain: Mild to moderate brain volume loss. No hemorrhage. No significant white matter disease. No edema. Ventricles: Unremarkable. No ventriculomegaly. Bones/joints: Unremarkable. No acute fracture. Soft tissues: Unremarkable. Vasculature: Calcific atherosclerosis of the bilateral carotid siphon. Sinuses: Unremarkable as visualized. No acute sinusitis. Mastoid air cells: Unremarkable as visualized. No mastoid effusion. IMPRESSION: No acute findings. Aspirin administered. Patient requires further observation for TIA work up. Accepted by Dr. Haile. Disposition - Disposition Disposition: HOSPITALIZED Disposition Time: 20:27 Condition: FAIR - Clinical Impression Clinical Impression: TIA (transient ischemic attack) - Scribe Statement The provider has reviewed the documentation as recorded by the Helene Holliday Provider Attestation: All medical record entries made by the Helene were at my direction and personally dictated by me. I have reviewed the chart and agree that the record accurately reflects my personal performance of the history, physical exam, medical decision making, and the department course for this patient. I have also personally directed, reviewed, and agree with the discharge instructions and disposition.
[2017-02-25 19:48] LABS: CHLORIDE 97 mmol/L (98-107); POTASSIUM 4.4 mmol/L (3.6-5.2); SODIUM 135 mmol/L (132-148)
[2017-02-25 19:50] LABS: ALKALINE PHOSPHATASE 111 U/L (38-126); ALT/SGPT 89 U/L (21-72); AST/SGOT 56 U/L (17-59); BILIRUBIN,TOTAL 0.9 mg/dL (0.2-1.3); BLOOD UREA NITROGEN 19 mg/dL (9-20); CARBON DIOXIDE 30 mmol/L (22-30); CHOLESTEROL 168 mg/dL (0-199); GFR AFRICAN-AMERICAN > 60; GLUCOSE,RANDOM 294 mg/dL (75-110); TOTAL PROTEIN 7.4 g/dL (6.3-8.3)
[2017-02-25 19:51] LABS: CALCIUM 9.4 mg/dl (8.6-10.4)
--- NOTE | 2017-02-26 05:56 | CP.PCM.HP ---
<Jaqueline Cross - Last Filed: 02/26/17 05:49> History of Present Illness - History of Present Illness History of Present Illness: CC - "I felt lightheaded earlier" HPI - 62 y/o male pmhx HTN, diabetes presents to the ED with complaints of lightheadedness lasting 1 minute at a time, intermittently for the past 11 days. Pt states on the 1st day he also had an episode of loss of vision lasting 10-15 seconds, seeing "all white" while [place] the park on 02[place]16. He said someone came over to him when this happened and asked if he was diabetic, then splashed water on his face and this helped his symptoms. When he had this vision loss he report a tingling sensation in chest chest which did not radiate and quickly resolved. He also reports he had this sensation earlier today but it has now resolved. Pt went to [facility] yesterday who called patient today requesting them to go to ED for stroke evaluation. Pt currently denies any symptoms. Denies fever, chest pain, SOB, headache, vomiting/nause, abdominal pain, numbness or any other complaints. He reports normal gait. PMHx - DM, HTN, HIV, stoke (3 years ago) FamHx - mother and sister had DM Surg - denies Meds - Metformin 500mg PO BID, Norvasc 2.5 mg PO daily, Lisionpril 20mg PO daily , Neurontin 400mg PO BID, (pt said he started a new med in the AM that was a blood thinner, his pharmacy was called and reported that hen never filled any blood thinner) Allergies - NKDA Social - used to smoke 1 pack per day for many years stopped 16 days ago, admits to drug use when he was younger, denies alcohol use PMD - [facility] Present on Admission - Present on Admission Any Indicators Present on Admission: No Review of Systems - Constitutional Constitutional: absent: Chills, Fever - EENT Eyes: Blurred Vision, Change in Vision - Cardiovascular Cardiovascular: Chest Pain. absent: Chest Pain at Rest, Palpitations, Pedal Edema, Syncope - Respiratory Respiratory: absent: Cough, Dyspnea, Dyspnea on Exertion - Gastrointestinal Gastrointestinal: absent: Abdominal Pain, Constipation, Diarrhea, Nausea, Vomiting - Genitourinary Genitourinary: absent: Change in Urinary Stream, Difficulty Urinating - Musculoskeletal Musculoskeletal: absent: Abnormal Gait, Numbness, Tingling - Neurological Neurological: absent: Headaches Past Patient History - Infectious Disease Hx of Infectious Diseases: None - Past Medical History & Family History Past Medical History?: Yes - Past Social History Smoking Status: Heavy Smoker > 10 Cigarettes Daily - CARDIAC Hx Hypercholesterolemia: Yes Hx Hypertension: Yes - PULMONARY Hx Respiratory Disorders: No - NEUROLOGICAL Hx Neurological Disorder: No - HEENT Hx HEENT Problems: No - RENAL Hx Chronic Kidney Disease: No - ENDOCRINE/METABOLIC Hx Diabetes Mellitus Type 2: Yes - HEMATOLOGICAL/ONCOLOGICAL Hx Human Immunodeficiency Virus (HIV): Yes (undetectable) - INTEGUMENTARY Hx Dermatological Problems: No - MUSCULOSKELETAL/RHEUMATOLOGICAL Hx Arthritis: Yes Hx Falls: No - GASTROINTESTINAL Hx Gastrointestinal Disorders: No - GENITOURINARY/GYNECOLOGICAL Hx Genitourinary Disorders: No - PSYCHIATRIC Hx Substance Use: No - SURGICAL HISTORY Hx Surgeries: Yes Hx Cardiac Catheterization: Yes (3 yrs ago normal) Hx Vascular Surgery: No - ANESTHESIA Hx Anesthesia: No Hx Anesthesia Reactions: No Hx Malignant Hyperthermia: No Meds Allergies/Adverse Reactions: Allergies Allergy/AdvReac Type Severity Reaction Status Date / Time No Known Allergies Allergy Verified 11/26/16 12:16 Physical Exam - Constitutional Appears: Non-toxic, No Acute Distress - Head Exam Head Exam: ATRAUMATIC, NORMAL INSPECTION - Eye Exam Eye Exam: EOMI, Normal appearance, PERRL Pupil Exam: NORMAL ACCOMODATION - ENT Exam ENT Exam: Mucous Membranes Moist - Respiratory Exam Respiratory Exam: Clear to Auscultation Bilateral, NORMAL BREATHING PATTERN. absent: Accessory Muscle Use, Rales, Rhonchi, Wheezes, Respiratory Distress - Cardiovascular Exam Cardiovascular Exam: REGULAR RHYTHM, +S1, +S2 - GI/Abdominal Exam GI & Abdominal Exam: Normal Bowel Sounds, Soft. absent: Distended, Firm, Guarding - Extremities Exam Extremities exam: Positive for: normal inspection - Back Exam Back exam: NORMAL INSPECTION. absent: CVA tenderness (L), CVA tenderness (R), paraspinal tenderness - Neurological Exam Neurological exam: Alert, Normal Gait, Oriented x3 - Psychiatric Exam Psychiatric exam: Normal Affect, Normal Mood - Skin Skin Exam: Dry, Intact, Normal Color, Warm Results - Vital Signs Recent Vital Signs: Last Vital Signs Temp 97.7 F 02/26/17 03:38 Pulse 68 02/26/17 04:01 Resp 20 02/26/17 03:38 BP 146/81 02/26/17 03:38 Pulse Ox 97 02/26/17 03:38 - Labs Result Diagrams: 02/25/17 19:16 02/25/17 19:16 Labs: Laboratory Results - last 24 hr 02/25/17 02/25/17 02/26/17 22:21 23:50 00:31 POC Glucose (mg/dL) 235 H Total Creatine Kinase 42 L CK-MB (Mass) 0.86 Troponin I, Quant < 0.0120 Urine Opiates Screen Negative Urine Methadone Screen Negative Ur Barbiturates Screen Negative Ur Phencyclidine Scrn Negative Ur Amphetamines Screen Negative U Benzodiazepines Scrn Negative U Oth Cocaine Metabols Negative U Cannabinoids Screen Negative Assessment & Plan - Assessment and Plan (Free Text) Assessment: Lightheaded with visual changes rule out stroke, patient with no current deficits CT head - no acute pathology f/u MRI, echo, carotid dopplers Aspirin 81 mg PO daily UDS negative Tropnonins negative x 2 Monitor on telemetry f/u am labs, tsh DM poorly controlled (pt reports insulin use in the past) Accuchecks Insulin sliding scale will hold home metfomin HbA1c - 12.3 Gabapentin 400mg PO BID Hypertension Amlodipine 5mg PO daily Lisinopril 20mg PO daily Monitor BP Prophylactic Measures Lovenox 40mg SC daily Pepcid 20mg PO BID Heart healthy Consistent carb diet <Darien Haile - Last Filed: 02/26/17 06:37> Results - Vital Signs Recent Vital Signs: Last Vital Signs Temp 97.7 F 02/26/17 03:38 Pulse 68 02/26/17 04:01 Resp 20 02/26/17 03:38 BP 146/81 02/26/17 03:38 Pulse Ox 97 02/26/17 03:38 - Labs Result Diagrams: 02/25/17 19:16 02/25/17 19:16 Labs: Laboratory Results - last 24 hr 02/25/17 02/25/17 02/26/17 22:21 23:50 00:31 POC Glucose (mg/dL) 235 H Total Creatine Kinase 42 L CK-MB (Mass) 0.86 Troponin I, Quant < 0.0120 Urine Opiates Screen Negative Urine Methadone Screen Negative Ur Barbiturates Screen Negative Ur Phencyclidine Scrn Negative Ur Amphetamines Screen Negative U Benzodiazepines Scrn Negative U Oth Cocaine Metabols Negative U Cannabinoids Screen Negative Assessment & Plan - Date & Time Date: 02/26/17 (I have seen and examined the patient. I agree with the findings and plan of care as documented by Dr. Cross. Patient with lightheadedness and visual changes. CT head negative. Check MRI brain. Neuro consult as needed. Also with history of diabetes and history of hypertension. Continue home meds. NISS and accuchecks. Monitor for acute changes.) Time: 06:35 Attending/Attestation - Attestation I have personally seen and examined this patient.: Yes I have fully participated in the care of the patient.: Yes I have reviewed all pertinent clinical information: Yes
[2017-02-26 06:51] LABS: BASO % 0.5 % (0.0-2.0); EOS # 0.3 K/uL (0.0-0.7); EOS % 5.2 % (0.0-4.0); HEMATOCRIT 39.9 % (35.0-51.0); LYMPH # 1.8 K/uL (1.0-4.3); LYMPH % 27.7 % (20.0-40.0); MEAN CELL VOLUME 87.2 fL (80.0-94.0); MEAN CORPUSCULAR HEMOGLOBIN 30.1 pg (27.0-31.0); MEAN CORPUSCULAR HGB CONC 34.5 g/dL (33.0-37.0); MEAN PLATELET VOLUME 9.1 fL (7.2-11.7); MONO # 0.5 K/uL (0.0-0.8); MONO % 8.1 % (0.0-10.0); NRBC % 0.7 % (0.0-2.0); RED CELL DISTRIBUTION WIDTH 12.1 % (11.5-14.5); WHITE BLOOD COUNT 6.6 K/uL (4.8-10.8)
[2017-02-26 06:55] LABS: CHLORIDE 99 mmol/L (98-107); SODIUM 137 mmol/L (132-148)
[2017-02-26 06:56] LABS: POTASSIUM 4.4 mmol/L (3.6-5.2)
[2017-02-26 06:58] LABS: ALB/GLOB RATIO 1.1 (1.0-2.1); ALKALINE PHOSPHATASE 85 U/L (38-126); AST/SGOT 53 U/L (17-59); BILIRUBIN,TOTAL 0.9 mg/dL (0.2-1.3); BLOOD UREA NITROGEN 16 mg/dL (9-20); CARBON DIOXIDE 30 mmol/L (22-30); GFR AFRICAN-AMERICAN > 60; GLUCOSE,RANDOM 183 mg/dL (75-110); PHOSPHOROUS 3.7 mg/dL (2.5-4.5); TOTAL PROTEIN 6.8 g/dL (6.3-8.3)
[2017-02-26 06:59] LABS: ALT/SGPT 89 U/L (21-72); MAGNESIUM 1.6 mg/dL (1.6-2.3)
[2017-02-26] MEDS: (Novolin R) Insulin Human Regular 100 units/ml vial SC SCH ×4 (08:00→22:06)
--- NOTE | 2017-02-26 08:10 | CT ---
PROCEDURE: CT HEAD WITHOUT CONTRAST. HISTORY: lightheadedness, vision loss COMPARISON: CT head dated 09/08/2016. TECHNIQUE: Axial computed tomography images were obtained through the head/brain without intravenous contrast. Radiation dose: Total exam DLP = 914 mGy-cm. This CT exam was performed using one or more of the following dose reduction techniques: Automated exposure control, adjustment of the mA and/or kV according to patient size, and/or use of iterative reconstruction technique. FINDINGS: HEMORRHAGE: No intracranial hemorrhage. BRAIN: No mass effect or edema. Scattered focal lucencies in the subcortical and periventricular white matter suggestive for chronic microvascular ischemic change. Mild to moderate brain volume loss. VENTRICLES: Unremarkable. No hydrocephalus. CALVARIUM: Unremarkable. PARANASAL SINUSES: Unremarkable as visualized. No significant inflammatory changes. MASTOID AIR CELLS: Unremarkable as visualized. No inflammatory changes. OTHER FINDINGS: Calcific atherosclerosis of the bilateral carotid siphon. IMPRESSION: No acute intracranial abnormality. Mild to moderate brain volume loss. Chronic microvascular ischemic change. If focal neurologic deficit persists, consider MRI. These findings were preliminarily reported at 8:25 p.m. on 02/25/[address] Kyle De La Rosa from [facility].
--- NOTE | 2017-02-26 08:52 | RAD ---
HISTORY: dizziness COMPARISON: 09/08/2016 FINDINGS: LUNGS: No active pulmonary disease. PLEURA: No significant pleural effusion identified, no pneumothorax apparent. CARDIOVASCULAR: Normal. OSSEOUS STRUCTURES: No significant abnormalities. VISUALIZED UPPER ABDOMEN: Normal. OTHER FINDINGS: None. IMPRESSION: No active disease.
[2017-02-26] MEDS ORDERED: (Lantus) Insulin Glargine, Recombinant SC SCH (10:00)
[2017-02-26] MEDS: Enoxaparin 40 mg Syringe SC SCH (10:45)
--- NOTE | 2017-02-26 12:48 | MRI ---
PROCEDURE: MRI BRAIN WITHOUT CONTRAST HISTORY: visual loss, resolved COMPARISON: CT head 02/25/2017, MRI brain 09/09/2016 TECHNIQUE: Multiplanar, multisequence MR images of the brain were obtained without intravenous contrast enhancement. FINDINGS: HEMORRHAGE: None DWI: No evidence of an acute or early subacute infarction. BRAIN PARENCHYMA: No mass effect or edema. There is stable mild diffuse cerebral cortical atrophy and mild small vessel changes in the white matter tracts. No new cortical effacement is seen. No cerebellopontine angle mass is noted. Vascular structures are patent at the skullbase region. Retro-orbital regions are unremarkable and unchanged. Cervicomedullary junction is unremarkable. No tonsillar ectopia is seen. No sellar masses are noted. VENTRICLES: Unremarkable. No hydrocephalus. CRANIUM: Unremarkable. ORBITS: Grossly unremarkable. PARANASAL SINUSES/MASTOIDS: Mild mucosal changes are seen in the paranasal sinuses. No air-fluid levels are appreciated. Small mucous retention cyst is seen in the inferior right maxillary sinus. This is unchanged. VASCULAR SYSTEM: Skull base flow voids intact. OTHER FINDINGS: None. IMPRESSION: Stable cerebral cortical atrophy and mild small vessel changes. No evidence of recent infarct or intracranial hemorrhage. Stable appearance of the orbits.
--- NOTE | 2017-02-26 14:07 | CP.PCM.PN ---
<Elsi Robert - Last Filed: 02/26/17 22:21> Subjective - Date & Time of Evaluation Date of Evaluation: 02/26/17 Time of Evaluation: 14:07 - Subjective Subjective: Medicine Progress Note- Dr. Cabrera Service: Patient was seen and examined at bedside in no acute distress. Patient denies having current vision loss and lightheadedness, but admits to feeling very tired. Patient states he has tingling in his lip and toes. Patient denies nausea , vomiting, chest pain, palpitations, loss of balance, and loss of speech. Objective - Vital Signs/Intake and Output Vital Signs (last 24 hours): Temp Pulse Resp BP Pulse Ox 98.0 F 70 18 134/84 97 02/26/17 07:15 02/26/17 07:30 02/26/17 07:15 02/26/17 07:15 02/26/17 07:15 - Medications Medications: Current Medications Amlodipine Besylate (Norvasc) 5 mg PO DAILY [facility] Last Admin: 02/26/17 10:46 Dose: 5 mg Aspirin (Ecotrin) 81 mg PO DAILY [facility] Last Admin: 02/26/17 10:45 Dose: 81 mg Enoxaparin Sodium (Lovenox) 40 mg SC DAILY [facility] Last Admin: 02/26/17 10:45 Dose: 40 mg Famotidine (Pepcid) 20 mg PO BID [facility] Last Admin: 02/26/17 10:45 Dose: 20 mg Gabapentin (Neurontin) 400 mg PO BID [facility] Last Admin: 02/26/17 10:46 Dose: 400 mg Insulin Glargine (Lantus) 10 unit SC DAILY [facility] Last Admin: 02/26/17 10:49 Dose: 10 units Insulin Human Regular (Novolin R) 0 unit SC [facility] PRN Reason: Protocol Last Admin: 02/26/17 12:05 Dose: 3 unit Lisinopril (Zestril) 20 mg PO DAILY [facility] Last Admin: 02/26/17 10:45 Dose: 20 mg Rosuvastatin Calcium (Crestor) 5 mg PO HS [facility] - Labs Labs: 02/26/17 06:23 02/26/17 06:23 PT 10.9 SECONDS (9.7-12.2) 02/25/17 19:37 INR 1.0 02/25/17 19:37 APTT 28 SECONDS (21-34) 02/25/17 19:37 - Constitutional Appears: Non-toxic, No Acute Distress - Head Exam Head Exam: NORMAL INSPECTION, NORMOCEPHALIC - Eye Exam Eye Exam: EOMI, Normal appearance - ENT Exam ENT Exam: Mucous Membranes Moist - Neck Exam Neck Exam: Full ROM, Normal Inspection - Respiratory Exam Respiratory Exam: Decreased Breath Sounds, Clear to Ausculation Bilateral - Cardiovascular Exam Cardiovascular Exam: REGULAR RHYTHM, +S1, +S2 - GI/Abdominal Exam GI & Abdominal Exam: Soft, Normal Bowel Sounds. absent: Distended, Tenderness - Extremities Exam Extremities Exam: Full ROM, Pedal Edema. absent: Calf Tenderness, Tenderness - Neurological Exam Neurological Exam: Alert, Awake, CN II-XII Intact, Normal Gait, Oriented x3 Neuro motor strength exam: Left Upper Extremity: 5, Right Upper Extremity: 5, Left Lower Extremity: 5, Right Lower Extremity: 5 - Psychiatric Exam Psychiatric exam: Normal Affect, Normal Mood - Skin Skin Exam: Dry, Intact, Normal Color, Warm Assessment and Plan (1) Lightheaded Assessment & Plan: Patient experience lightheadedness with visual changes, R/O stroke patient has no current deficits CT of head: no acute findings (02/25/17) CXR: no active disease (02/25/17) UDS- negative Brain MRI- no acute findings Carotid doppler: mild disease in right and left internal carotid arteries Troponins x2 negative TSH 1.20 ASA 81mg PO daily Crestor 5mg PO HS Neuro consult- Dr. Berry, help appreciated: As per Dr. Berry, monitor patient on telemetry and ordered echo with bubble study- results pending Status: Acute (2) Diabetes Assessment & Plan: poorly controlled, patient reports using Metformin 500mg daily; patient reports using insulin in the past. HbA1c: 12.3 Accuchecks Lantus 10 units SC daily Gabapentin 400mg PO BID Status: Chronic (3) Hypertension Assessment & Plan: Amlodipine 5mg PO daily Lisinopril 20mg PO daily Monitor Status: Chronic (4) Prophylactic measure Assessment & Plan: SCDs Lovenox 40mg SC daily Pepcid 20mg PO BID Heart healthy Consistent carb diet Status: Acute <Niraj Cabrera - Last Filed: 02/27/17 16:41> Objective - Vital Signs/Intake and Output Vital Signs (last 24 hours): Temp Pulse Resp BP Pulse Ox 97.8 F 59 L 20 121/75 100 02/27/17 15:52 02/27/17 15:52 02/27/17 15:52 02/27/17 15:52 02/27/17 15:52 Intake and Output: 02/27/17 02/27/17 06:59 18:59 Intake Total 500 Output Total 1800 Balance -1300 - Medications Medications: Current Medications Amlodipine Besylate (Norvasc) 5 mg PO DAILY [facility] Last Admin: 02/27/17 09:34 Dose: 5 mg Aspirin (Ecotrin) 81 mg PO DAILY [facility] Last Admin: 02/27/17 09:34 Dose: 81 mg Clopidogrel Bisulfate (Plavix) 75 mg PO Q24H [facility] Last Admin: 02/27/17 14:16 Dose: 75 mg Enoxaparin Sodium (Lovenox) 40 mg SC DAILY [facility] Last Admin: 02/27/17 09:34 Dose: 40 mg Famotidine (Pepcid) 20 mg PO BID [facility] Last Admin: 02/27/17 09:34 Dose: 20 mg Gabapentin (Neurontin) 400 mg PO BID [facility] Last Admin: 02/27/17 09:37 Dose: 400 mg Insulin Glargine (Lantus) 15 unit SC DAILY [facility] Last Admin: 02/27/17 09:41 Dose: 15 units Insulin Human Regular (Novolin R) 0 unit SC [facility] PRN Reason: Protocol Last Admin: 02/27/17 13:39 Dose: 3 unit Lisinopril (Zestril) 20 mg PO DAILY [facility] Last Admin: 02/27/17 09:34 Dose: 20 mg Rosuvastatin Calcium (Crestor) 5 mg PO [facility] Last Admin: 02/26/17 21:54 Dose: 5 mg - Labs Labs: 02/27/17 06:09 02/27/17 06:09 PT 10.9 SECONDS (9.7-12.2) 02/25/17 19:37 INR 1.0 02/25/17 19:37 APTT 28 SECONDS (21-34) 02/25/17 19:37 Attending/Attestation - Attestation I have personally seen and examined this patient.: Yes I have fully participated in the care of the patient.: Yes I have reviewed all pertinent clinical information, including history, physical exam and plan: Yes Notes (Text): 02/27/17 16:41 Patient was seen and examined at bedside with the resident Neurology evaluation seen in appreciated and workup is in progress I agree with the history and physical and assessment/plan with the resident.
[2017-02-26 16:33] VITALS: RESP 20
--- NOTE | 2017-02-26 16:36 | VASCLAB ---
PROCEDURE: HISTORY: tia/ visual loss COMPARISON: None available. TECHNIQUE: Grayscale and duplex Doppler evaluation of the cervical carotid and vertebral arteries were performed. The common carotid, carotid bifurcations and cervical Internal Carotid Artery (ICA) and proximal External Carotid Artery (ECA) were evaluated. The vertebral arteries were evaluated for gross patency and flow direction. Report prepared by Lev Brown, BS, RVT FINDINGS: RIGHT CAROTID ARTERIES: 1. Common Carotid Artery: No significant focal plaque formation of the right common carotid artery. Maximum Peak Systolic velocity: 64 cm/sec: End-diastolic velocity 20 cm/sec. 2. Carotid Bifurcation: Calcific plaque formation. Maximum Peak Systolic velocity: 57 cm/sec: End-diastolic velocity 23 cm/sec. 3. Internal Carotid Artery: Minimal plaque formation of the right proximal ICA which does not result in hemodynamically significant stenosis. Plaque description: Calcific 3.1. Proximal Segment: Peak systolic velocity 59 cm/sec: End-diastolic velocity 27 cm/sec - % stenosis 0-15% 3.2. Middle Segment: Peak systolic velocity 84 cm/sec: End-diastolic velocity 30 cm/sec - % stenosis 0-15% 3.3. Distal Segment: Peak systolic velocity 85 cm/sec: End-diastolic velocity 36 cm/sec - % stenosis 0-15% 4. External Carotid Artery: No significant focal plaque formation. Peak systolic velocity 78 cm/sec 5. ICA/CCA Ratio: 1.3 LEFT CAROTID ARTERIES: 1. Common Carotid Artery: No significant focal plaque formation of the left common carotid artery. Maximum Peak Systolic velocity: 80 cm/sec: End-diastolic velocity 25 cm/sec. 2. Carotid Bifurcation: Calcific plaque formation. Maximum Peak Systolic velocity: 86 cm/sec: End-diastolic velocity 28 cm/sec. 3. Internal Carotid Artery: Minimal plaque formation of the left proximal ICA which does not result in hemodynamically significant stenosis. Plaque description: Calcific 3.1. Proximal Segment: Peak systolic velocity 73 cm/sec: End-diastolic velocity 26 cm/sec - % stenosis 0-15% 3.2. Middle Segment: Peak systolic velocity 78 cm/sec: End-diastolic velocity 32 cm/sec - % stenosis 0-15% 3.3. Distal Segment: Peak systolic velocity 94 cm/sec: End-diastolic velocity 38 cm/sec - % stenosis 0-15% 4. External Carotid Artery: No significant focal plaque formation. Peak systolic velocity 68 cm/sec 5. ICA/CCA Ratio: 1.2 VERTEBRAL ARTERIES: 1. Right Vertebral Artery: The right vertebral artery flow direction is antegrade. 2. Left Vertebral Artery: The left vertebral artery flow direction is antegrade. OTHER FINDINGS: 1. Right Brachial Blood pressure: 130 mmHg. 2. Left Brachial Blood pressure: 116 mmHg. IMPRESSION: RIGHT: Duplex scan does not suggest hemodynamically significant stenosis of the right extracranial carotid arteries. LEFT: Duplex scan does not suggest hemodynamically significant stenosis of the left extracranial carotid arteries.
--- NOTE | 2017-02-26 16:55 | CP.PCM.CON ---
History of Present Illness - History of Present Illness History of Present Illness: Mr. 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 Over the past 10 days, he has been having other episodes that he describes as "light-headedness". These also tend to last about 10-15 seconds. He states that he believes he had a stroke several years ago, but then says that his symptoms of speech difficulty only lasted about 20 minutes during his alleged stroke. Today, the patient states that he feels well and did not have any complaints of headache, visual changes, light- headedness, vertigo, sensory changes/weakness, difficulty with ambulation, shortness of breath, chest pain, abdominal pain or any other associated symptoms. Review of Systems - Review of Systems All systems: reviewed and no additional remarkable complaints except Past Patient History - Infectious Disease Hx of Infectious Diseases: None - Past Medical History & Family History Past Medical History?: Yes - Past Social History Smoking Status: Heavy Smoker > 10 Cigarettes Daily - CARDIAC Hx Hypercholesterolemia: Yes Hx Hypertension: Yes - PULMONARY Hx Respiratory Disorders: No - NEUROLOGICAL Hx Neurological Disorder: No - HEENT Hx HEENT Problems: No - RENAL Hx Chronic Kidney Disease: No - ENDOCRINE/METABOLIC Hx Diabetes Mellitus Type 2: Yes - HEMATOLOGICAL/ONCOLOGICAL Hx Human Immunodeficiency Virus (HIV): Yes (undetectable) - INTEGUMENTARY Hx Dermatological Problems: No - MUSCULOSKELETAL/RHEUMATOLOGICAL Hx Arthritis: Yes - GASTROINTESTINAL Hx Gastrointestinal Disorders: No - GENITOURINARY/GYNECOLOGICAL Hx Genitourinary Disorders: No - PSYCHIATRIC Hx Substance Use: No - SURGICAL HISTORY Hx Surgeries: Yes Hx Cardiac Catheterization: Yes (3 yrs ago normal) Hx Vascular Surgery: No - ANESTHESIA Hx Anesthesia: No Hx Anesthesia Reactions: No Hx Malignant Hyperthermia: No Meds Allergies/Adverse Reactions: Allergies Allergy/AdvReac Type Severity Reaction Status Date / Time No Known Allergies Allergy Verified 11/26/16 12:16 - Medications Medications: Current Medications Amlodipine Besylate (Norvasc) 5 mg PO DAILY [facility] Last Admin: 02/26/17 10:46 Dose: 5 mg Aspirin (Ecotrin) 81 mg PO DAILY [facility] Last Admin: 02/26/17 10:45 Dose: 81 mg Enoxaparin Sodium (Lovenox) 40 mg SC DAILY [facility] Last Admin: 02/26/17 10:45 Dose: 40 mg Famotidine (Pepcid) 20 mg PO BID [facility] Last Admin: 02/26/17 10:45 Dose: 20 mg Gabapentin (Neurontin) 400 mg PO BID [facility] Last Admin: 02/26/17 10:46 Dose: 400 mg Insulin Glargine (Lantus) 10 unit SC DAILY [facility] Last Admin: 02/26/17 10:49 Dose: 10 units Insulin Human Regular (Novolin R) 0 unit SC [facility] PRN Reason: Protocol Last Admin: 02/26/17 12:05 Dose: 3 unit Lisinopril (Zestril) 20 mg PO DAILY [facility] Last Admin: 02/26/17 10:45 Dose: 20 mg Rosuvastatin Calcium (Crestor) 5 mg PO [facility] Results - Vital Signs Recent Vital Signs: Last Vital Signs Temp 97.9 F 02/26/17 16:31 Pulse 69 02/26/17 16:31 Resp 20 02/26/17 16:31 BP 133/84 02/26/17 16:31 Pulse Ox 99 02/26/17 16:31 - Labs Result Diagrams: 02/26/17 06:23 02/26/17 06:23 Labs: Laboratory Results - last 24 hr 02/25/17 02/25/17 02/26/17 22:21 23:50 00:31 WBC RBC Hgb Hct MCV MCH MCHC RDW Plt Count MPV Neut % (Auto) Lymph % (Auto) [place] % (Auto) Eos % (Auto) Baso % (Auto) Neut # Lymph # [place] # Eos # Baso # Sodium Potassium Chloride Carbon Dioxide Anion Gap BUN Creatinine Est GFR ( Amer) Est GFR (Non-Af Amer) POC Glucose (mg/dL) 235 H Random Glucose Calcium Phosphorus Magnesium Total Bilirubin AST ALT Alkaline Phosphatase Total Creatine Kinase 42 L CK-MB (Mass) 0.86 Troponin I Troponin I, Quant < 0.0120 Total Protein Albumin Globulin Albumin/Globulin Ratio TSH 3rd Generation Urine Opiates Screen Negative Urine Methadone Screen Negative Ur Barbiturates Screen Negative Ur Phencyclidine Scrn Negative Ur Amphetamines Screen Negative U Benzodiazepines Scrn Negative U Oth Cocaine Metabols Negative U Cannabinoids Screen Negative 02/26/17 02/26/17 02/26/17 06:23 06:23 06:23 WBC 6.6 RBC 4.57 Hgb 13.8 Hct 39.9 MCV 87.2 MCH 30.1 MCHC 34.5 RDW 12.1 Plt Count 192 MPV 9.1 Neut % (Auto) 58.5 Lymph % (Auto) 27.7 [place] % (Auto) 8.1 Eos % (Auto) 5.2 H Baso % (Auto) 0.5 Neut # 3.9 Lymph # 1.8 [place] # 0.5 Eos # 0.3 Baso # 0.0 Sodium 137 Potassium 4.4 Chloride 99 Carbon Dioxide 30 Anion Gap 12 BUN 16 Creatinine 0.7 L Est GFR ( Amer) > 60 Est GFR (Non-Af Amer) > 60 POC Glucose (mg/dL) Random Glucose 183 H Calcium 9.0 Phosphorus 3.7 Magnesium 1.6 Total Bilirubin 0.9 AST 53 ALT 89 H Alkaline Phosphatase 85 Total Creatine Kinase CK-MB (Mass) Troponin I 0.0190 Troponin I, Quant Total Protein 6.8 Albumin 3.5 Globulin 3.3 Albumin/Globulin Ratio 1.1 TSH 3rd Generation 1.20 Urine Opiates Screen Urine Methadone Screen Ur Barbiturates Screen Ur Phencyclidine Scrn Ur Amphetamines Screen U Benzodiazepines Scrn U Oth Cocaine Metabols U Cannabinoids Screen 02/26/17 02/26/17 02/26/17 06:35 11:25 16:09 WBC RBC Hgb Hct MCV MCH MCHC RDW Plt Count MPV Neut % (Auto) Lymph % (Auto) [place] % (Auto) Eos % (Auto) Baso % (Auto) Neut # Lymph # [place] # Eos # Baso # Sodium Potassium Chloride Carbon Dioxide Anion Gap BUN Creatinine Est GFR ( Amer) Est GFR (Non-Af Amer) POC Glucose (mg/dL) 208 H 239 H 298 H Random Glucose Calcium Phosphorus Magnesium Total Bilirubin AST ALT Alkaline Phosphatase Total Creatine Kinase CK-MB (Mass) Troponin I Troponin I, Quant Total Protein Albumin Globulin Albumin/Globulin Ratio TSH 3rd Generation Urine Opiates Screen Urine Methadone Screen Ur Barbiturates Screen Ur Phencyclidine Scrn Ur Amphetamines Screen U Benzodiazepines Scrn U Oth Cocaine Metabols U Cannabinoids Screen - Imaging and Cardiology MRI - head Status: Image reviewed by me, Report reviewed by me (No acute findings, mild chronic small vessel disease and chronic ischemic changes. ) Assessment & Plan (1) TIA (transient ischemic attack) Assessment and Plan: The patient's MRI does not show any acute infarct. Since he has had recurrent episodes over the last 10 days, I recommend starting the patient on dual anti- platelet therapy per the CHANCE trial for a total of 21 days with aspirin 81 mg daily and Plavix 75 mg daily. After 21 days, we may discontinue aspirin and continue Plavix indefinitely. Check lipid panel and increase Crestor if needed to maintain LDL below 100. Check HbA1C, B12, folate and TSH. Obtain CTA of the head/neck to evaluate vasculature. Obtain echocardiogram with bubble study and continue telemetry for cardiac monitoring. PT/OT and DVT Px are recommended. Thank you. Status: Acute Priority: High
[2017-02-27 06:24] LABS: BASO % 0.4 % (0.0-2.0); EOS # 0.3 K/uL (0.0-0.7); HEMATOCRIT 38.2 % (35.0-51.0); LYMPH # 1.3 K/uL (1.0-4.3); MEAN CELL VOLUME 86.7 fL (80.0-94.0); MEAN CORPUSCULAR HEMOGLOBIN 30.3 pg (27.0-31.0); MEAN PLATELET VOLUME 9.4 fL (7.2-11.7); MONO # 0.5 K/uL (0.0-0.8); MONO % 8.2 % (0.0-10.0); NRBC % 0.1 % (0.0-2.0); RED CELL DISTRIBUTION WIDTH 11.9 % (11.5-14.5); WHITE BLOOD COUNT 5.6 K/uL (4.8-10.8)
[2017-02-27 06:47] LABS: CHLORIDE 98 mmol/L (98-107); SODIUM 133 mmol/L (132-148)
[2017-02-27 06:50] LABS: ALKALINE PHOSPHATASE 82 U/L (38-126); AST/SGOT 44 U/L (17-59); BILIRUBIN,TOTAL 0.7 mg/dL (0.2-1.3); BLOOD UREA NITROGEN 19 mg/dL (9-20); CARBON DIOXIDE 26 mmol/L (22-30); GFR AFRICAN-AMERICAN > 60; GLUCOSE,RANDOM 306 mg/dL (75-110); PHOSPHOROUS 3.7 mg/dL (2.5-4.5); TOTAL PROTEIN 6.4 g/dL (6.3-8.3)
[2017-02-27 06:51] LABS: ALT/SGPT 79 U/L (21-72); CALCIUM 8.8 mg/dl (8.6-10.4); MAGNESIUM 1.6 mg/dL (1.6-2.3)
[2017-02-27] MEDS: (Novolin R) Insulin Human Regular 100 units/ml vial SC SCH ×2 (08:00→13:39)
[2017-02-27] MEDS ORDERED: (Lantus) Insulin Glargine, Recombinant SC SCH (09:01)
[2017-02-27] MEDS: Enoxaparin 40 mg Syringe SC SCH (09:34)
[2017-02-27] MEDS ORDERED: Iodixanol 320 MG/ML 100 ML BOTTLE IV ONE (11:27)
--- NOTE | 2017-02-27 11:53 | CARD ---
APPROVED REPORT EXAM: Two-dimensional and M-mode echocardiogram with Doppler and color Doppler. Other Information Quality : GoodRhythm : NSR INDICATION CVA/TIA BUBBLE STUDY FOR CVA, LIGHTHEADEDNESS, POSSIBLE STROKE/TIA , HIV RISK FACTORS Hypertension Diabetes Smoking M-Mode DIMENSIONS RVDd2.46 (2.1-3.2cm)Left Atrium (MM)3.67 (2.5-4.0cm) IVSd1.33 (0.7-1.1cm)Aortic Root3.94 (2.2-3.7cm) LVDd6.13 (4.0-5.6cm)Aortic Cusp Exc.2.34 (1.5-2.0cm) PWd1.29 (0.7-1.1cm)FS (%) 23 % LVDs4.72 (2.0-3.8cm)LVEF (%)45 (>50%) Mitral Valve MV E Ifinnsuj96.7cm/sMV A Xkuidjug295.7cm/sE/A ratio0.7 TDI E/Lateral E'0.0E/Medial E'0.0 Tricuspid Valve TR Peak Abirlfos132bn/sTR Peak Gr.[id number] LEFT VENTRICLE The Left Ventricle is mildly dilated. There is mild concentric left ventricular hypertrophy. The systolic function is mildly to moderately impaired. There is normal LV segmental wall motion. Transmitral Doppler flow pattern is Grade I-abnormal relaxation pattern. Elevated left atrial pressure. There is no ventricular septal defect visualized. RIGHT VENTRICLE The right ventricle is mildly dilated. The right ventricular systolic function is normal. ATRIA The left atrium is borderline dilated. The right atrium size is normal. Bubble study shows no evidence of PFO. The interatrial septum is intact with no evidence for an atrial septal defect. AORTIC VALVE The aortic valveshow mild focal sclerosi in the left coronary cusp but opens well. No aortic regurgitation is present. MITRAL VALVE The mitral valve is normal in structure. Mitral regurgitation is trace. TRICUSPID VALVE The tricuspid valve is normal in structure. There is mild tricuspid regurgitation. PULMONIC VALVE The pulmonary valve is normal in structure. There is trace pulmonic valvular regurgitation. GREAT VESSELS The aortic root is normal in size. The IVC is normal in size and collapses >50% with inspiration. PERICARDIAL EFFUSION There is no pericardial effusion. <Conclusion> The left ventricle is mildly dilated. There is mild concentric left ventricular hypertrophy. The systolic function is mildly to moderately impaired. with EF - 45%. The right ventricle is mildly dilated. The left atrium is borderline dilated. Bubble study with agitated saline shows no evidence of PFO. The interatrial septum is intact with no evidence for an atrial septal defect. The aortic valve shows mild focal sclerosi in the left coronary cusp but opens well. There is no pericardial effusion.
--- NOTE | 2017-02-27 13:03 | CT ---
PROCEDURE: CT Angiography of the neck and brain dated 02/27/2017 HISTORY: TIA COMPARISON: Comparison made with prior MRI brain 02/26/2017 TECHNIQUE: Contiguous helical/ transaxial images of the neck were obtained from the level of the skull-base to the superior mediastinum in the arteriographic phase of enhancement. Coronal and sagittal reformats or also generated. IV contrast dose: 100 cc Visipaque 320 Radiation Dose - DLP: 1467.97 mGy-cm This CT exam was performed using one or more of the following dose reduction techniques: Automated exposure control, adjustment of the mA and/or kV according to patient size, and/or use of iterative reconstruction technique. Findings: FINDINGS: Minimal atherosclerotic plaque seen along the aortic arch. The origins of the great vessels are widely patent with only minimal plaque at the origin of the left subclavian artery as well as at the proximal margin of a tortuous right-sided brachiocephalic artery. The common carotid arteries are widely patent. Some minor atherosclerotic plaque seen along carotid bifurcations extending into the proximal margins of both internal carotid arteries however no significant stenosis. The petrous, cavernous and supraclinoid segments also widely patent despite some minor calcification along the cavernous carotid arteries. The A1 and M1 segments also patent. Distal branches of the anterior and middle cerebral arteries are also patent and relatively symmetric. No evidence of occlusion no evidence of large aneurysm nor vascular malformation There is mild asymmetry of the vertebral arteries right-sided which is smaller in caliber compared to the larger caliber more dominant left vertebral artery. Basilar artery and posterior cerebral arteries are also patent. The visualized distal post cerebral arteries appear relatively symmetric so far as can be seen Incidental note made of multiple small nonspecific bilateral cervical lymph nodes. Impression: Minor partially calcified atherosclerotic plaque seen at the carotid bifurcations and extending into the proximal margins of both internal carotid arteries however no evidence of occlusion or significant stenosis. The visualized intra cerebral vessels also patent without occlusion or significant stenosis so far as can be seen. No evidence of large aneurysm nor vascular malformation within limitations of the study.
--- NOTE | 2017-02-27 14:22 | CARD ---
APPROVED REPORT EKG Measurement Heart [id number] <Conclusion> Normal sinus rhythm with sinus arrhythmia Nonspecific T wave abnormality Abnormal ECG
--- NOTE | 2017-02-27 14:25 | CARD ---
APPROVED REPORT EKG Measurement Heart [id number] [place] [id number] <Conclusion> Normal sinus rhythm Septal infarct, age undetermined Abnormal ECG
[2017-02-27 15:54] VITALS: BP 121/75; PULSE 59; TEMP 97.8; O2SAT 100
--- NOTE | 2017-02-27 19:11 | CARD ---
APPROVED REPORT EKG Measurement Heart [id number] [place] [id number] <Conclusion> Normal sinus rhythm Normal ECG
--- NOTE | 2017-02-27 20:38 | CP.PCM.DIS ---
<Elsi Robert - Last Filed: 02/27/17 20:32> Provider - Provider Date of Admission: 02/25/17 20:35 Attending physician: Darien Haile MD Primary care physician: Dr. Orosco Consults: Dr. Berry (Neuro) Time Spent in preparation of Discharge (in minutes): 45 Diagnosis - Discharge Diagnosis (1) Lightheaded Status: Resolved Comment: See hospital summary for further details. (2) Diabetes Status: Chronic Comment: See hospital summary for further details. (3) Hypertension Status: Chronic Comment: See hospital summary for further details. Hospital Course - Lab Results Lab Results: Most Recent Lab Values WBC 5.6 K/uL (4.8-10.8) 02/27/17 06:09 RBC 4.40 Mil/uL (4.40-5.90) 02/27/17 06:09 Hgb 13.4 g/dL (12.0-18.0) 02/27/17 06:09 Hct 38.2 % (35.0-51.0) 02/27/17 06:09 MCV 86.7 fL (80.0-94.0) 02/27/17 06:09 MCH 30.3 pg (27.0-31.0) 02/27/17 06:09 MCHC 35.0 g/dL (33.0-37.0) 02/27/17 06:09 RDW 11.9 % (11.5-14.5) 02/27/17 06:09 Plt Count 176 K/uL (130-400) 02/27/17 06:09 MPV 9.4 fL (7.2-11.7) 02/27/17 06:09 Neut % (Auto) 62.4 % (50.0-75.0) 02/27/17 06:09 Lymph % (Auto) 24.0 % (20.0-40.0) 02/27/17 06:09 [place] % (Auto) 8.2 % (0.0-10.0) 02/27/17 06:09 Eos % (Auto) 5.0 % (0.0-4.0) H 02/27/17 06:09 Baso % (Auto) 0.4 % (0.0-2.0) 02/27/17 06:09 Neut # 3.5 K/uL (1.8-7.0) 02/27/17 06:09 Lymph # 1.3 K/uL (1.0-4.3) 02/27/17 06:09 [place] # 0.5 K/uL (0.0-0.8) 02/27/17 06:09 Eos # 0.3 K/uL (0.0-0.7) 02/27/17 06:09 Baso # 0.0 K/uL (0.0-0.2) 02/27/17 06:09 PT 10.9 SECONDS (9.7-12.2) 02/25/17 19:37 INR 1.0 02/25/17 19:37 APTT 28 SECONDS (21-34) 02/25/17 19:37 Sodium 133 mmol/L (132-148) 02/27/17 06:09 Potassium 4.0 mmol/L (3.6-5.2) 02/27/17 06:09 Chloride 98 mmol/L (98-107) 02/27/17 06:09 Carbon Dioxide 26 mmol/L (22-30) 02/27/17 06:09 Anion Gap 14 (10-20) 02/27/17 06:09 BUN 19 mg/dL (9-20) 02/27/17 06:09 Creatinine 0.7 MG/DL (0.8-1.5) L 02/27/17 06:09 Est GFR ( Amer) > 60 02/27/17 06:09 Est GFR (Non-Af Amer) > 60 02/27/17 06:09 POC Glucose (mg/dL) 246 mg/dL (65-110) H 02/27/17 16:17 Random Glucose 306 mg/dL (75-110) H 02/27/17 06:09 Hemoglobin A1c 12.3 % (4.2-6.5) H D 02/25/17 19:16 Calcium 8.8 mg/dl (8.6-10.4) 02/27/17 06:09 Phosphorus 3.7 mg/dL (2.5-4.5) 02/27/17 06:09 Magnesium 1.6 mg/dL (1.6-2.3) 02/27/17 06:09 Total Bilirubin 0.7 mg/dL (0.2-1.3) 02/27/17 06:09 AST 44 U/L (17-59) 02/27/17 06:09 ALT 79 U/L (21-72) H 02/27/17 06:09 Alkaline Phosphatase 82 U/L (38-126) 02/27/17 06:09 Total Creatine Kinase 42 U/L (55-170) L 02/25/17 23:50 CK-MB (Mass) 0.86 ng/mL (0.0-3.38) 02/25/17 23:50 Troponin I 0.0190 ng/mL (0.00-0.120) 02/26/17 06:23 Troponin I, Quant < 0.0120 ng/mL (0.00-0.120) 02/25/17 23:50 Total Protein 6.4 g/dL (6.3-8.3) 02/27/17 06:09 Albumin 3.2 g/dL (3.5-5.0) L 02/27/17 06:09 Globulin 3.1 gm/dL (2.2-3.9) 02/27/17 06:09 Albumin/Globulin Ratio 1.0 (1.0-2.1) 02/27/17 06:09 Triglycerides 128 mg/dL (0-149) D 02/25/17 19:16 Cholesterol 168 mg/dL (0-199) 02/25/17 19:16 LDL Cholesterol Direct 98 mg/dL (0-129) 02/25/17 19:16 HDL Cholesterol 45 mg/dL (30-70) 02/25/17 19:16 TSH 3rd Generation 1.20 mIU/L (0.46-4.68) 02/26/17 06:23 Urine Opiates Screen Negative (NEGATIVE) 02/26/17 00:31 Urine Methadone Screen Negative (NEGATIVE) 02/26/17 00:31 Ur Barbiturates Screen Negative (NEGATIVE) 02/26/17 00:31 Ur Phencyclidine Scrn Negative (NEGATIVE) 02/26/17 00:31 Ur Amphetamines Screen Negative (NEGATIVE) 02/26/17 00:31 U Benzodiazepines Scrn Negative (NEGATIVE) 02/26/17 00:31 U Oth Cocaine Metabols Negative (NEGATIVE) 02/26/17 00:31 U Cannabinoids Screen Negative (NEGATIVE) 02/26/17 00:31 Blood Type O POSITIVE 02/25/17 19:20 Antibody Screen Negative 02/25/17 19:20 - Hospital Course Hospital Course: CC: "I felt lightheaded earlier" HPI: 62 y/o male PMHx HTN, diabetes presents to the ED with complaints of lightheadedness lasting 1 minute at a time, intermittently for the past 11 days. Pt states on the 1st day he also had an episode of loss of vision lasting 10-15 seconds, seeing "all white" [place] the park [place]16. He said someone came over to him when this happened and asked if he was diabetic, then splashed water on his face and this helped his symptoms. When he had this vision loss he report a tingling sensation in chest chest which did not radiate and quickly resolved. He also reports he had this sensation earlier today but it has now resolved. Pt went to PMD Dr. Orosco yesterday who called patient today requesting them to go to ED for stroke evaluation. Pt currently denies any symptoms. Denies fever, chest pain, SOB, headache, vomiting/nausea, abdominal pain, numbness or any other complaints. He reports normal gait. Patient was admitted to telemetry for lightheadedness, vision changes that occurred 11 days prior. Patient was sent by his PMD, Dr. Orosco. In the ED, EKG was found to have no ST/T wave changes at 60bpm. The NIHSS Stroke Scale resulted in a score of 0. In the ED, patient's CT head was found to have no acute findings. Aspirin was given. Patient was admitted and monitored on telemetry. Carotid Duplex results showed no significant stenosis of carotids. Brain MRI found no acute infarct. Neurology consult was placed (Dr. Berry). Neurologist ordered echo with bubble study and CT Angiogram, which showed no acute findings. per Dr. Berry, patient to start therapy for the CHANCE trial for a total of 21 days with Aspirin 81mg daily and Plavix 75mg daily. After 21 days, discontinue the aspirin and continue the Plavix 75mg daily indefinitely. Patient was cleared for discharge as per Dr. Cabrera. This is a summery of the hospital course. Please see chart for details. Patient is stable for discharge to home as per Dr. Cabrera. Patient should resume home medications and start new medications listed below: New Medications: Simvastatin 20mg PO HS (at night) Aspirin 81mg daily for 19 days (patient to take until 03/18/17- STOP) Plavix 75mg daily. Patient to continue Plavix indefinitely. Humalog 75/25 10 units subcutaneously BID (twice a day before eating) Please follow up with your PMD, Dr. Orosco, within one week of discharge. These instructions were discussed and understood by the patient. Patient should return to the ED if patient has any concerns. Discharge Exam - Head Exam Head Exam: NORMAL INSPECTION, NORMOCEPHALIC - Eye Exam Eye Exam: EOMI, Normal appearance - ENT Exam ENT Exam: Mucous Membranes Moist - Respiratory Exam Respiratory Exam: Clear to PA & Lateral, NORMAL BREATHING PATTERN, UNREMARKABLE - Cardiovascular Exam Cardiovascular Exam: REGULAR RHYTHM, +S1, +S2 - GI/Abdominal Exam GI & Abdominal Exam: Normal Bowel Sounds, Soft, Unremarkable. absent: Distended , Tenderness - Neurological Exam Neurological exam: Alert, CN II-XII Intact, Normal Gait, Oriented x3 - Psychiatric Exam Psychiatric exam: Normal Affect, Normal Mood - Skin Skin Exam: Dry, Intact, Normal Color, Warm Discharge Plan - Discharge Medications Prescriptions: Aspirin [Ecotrin] 81 mg PO DAILY #19 Clopidogrel [Plavix] 75 mg PO Q24H #30 tab Simvastatin 20 mg PO HS #30 tablet - Follow Up Plan Condition: FAIR Disposition: HOME/ ROUTINE Instructions: Aspirin (By mouth), Simvastatin (By mouth), Clopidogrel (By mouth ), Transient Ischemic Attack (DC), How to Stop Smoking (DC), Heart Healthy Diet (DC), Cigarette Smoking and Your Health (GEN) Additional Instructions: Patient is stable for discharge to home as per Dr. Cabrera. Patient should resume home medications and start new medications listed below: New Medications: Simvastatin 20mg PO HS (at night) Aspirin 81mg daily for 19 days (patient to take until 03/18/17- STOP) Plavix 75mg daily. Patient to continue Plavix indefinitely. Humalog 75/25 10 units subcutaneously BID (twice a day before eating) Please follow up with your PMD, Dr. Orosco, within one week of discharge. These instructions were discussed and understood by the patient. Patient should return to the ED if patient has any concerns. Referrals: Ramon Berry MD [Staff Provider] - <Niraj Cabrera M - Last Filed: 02/28/17 09:13> Provider - Provider Date of Admission: 02/25/17 20:35 Attending physician: Darien Haile MD Diagnosis - Discharge Diagnosis (1) TIA (transient ischemic attack) Status: Acute Priority: High Hospital Course - Lab Results Lab Results: Most Recent Lab Values WBC 5.6 K/uL (4.8-10.8) 02/27/17 06:09 RBC 4.40 Mil/uL (4.40-5.90) 02/27/17 06:09 Hgb 13.4 g/dL (12.0-18.0) 02/27/17 06:09 Hct 38.2 % (35.0-51.0) 02/27/17 06:09 MCV 86.7 fL (80.0-94.0) 02/27/17 06:09 MCH 30.3 pg (27.0-31.0) 02/27/17 06:09 MCHC 35.0 g/dL (33.0-37.0) 02/27/17 06:09 RDW 11.9 % (11.5-14.5) 02/27/17 06:09 Plt Count 176 K/uL (130-400) 02/27/17 06:09 MPV 9.4 fL (7.2-11.7) 02/27/17 06:09 Neut % (Auto) 62.4 % (50.0-75.0) 02/27/17 06:09 Lymph % (Auto) 24.0 % (20.0-40.0) 02/27/17 06:09 [place] % (Auto) 8.2 % (0.0-10.0) 02/27/17 06:09 Eos % (Auto) 5.0 % (0.0-4.0) H 02/27/17 06:09 Baso % (Auto) 0.4 % (0.0-2.0) 02/27/17 06:09 Neut # 3.5 K/uL (1.8-7.0) 02/27/17 06:09 Lymph # 1.3 K/uL (1.0-4.3) 02/27/17 06:09 [place] # 0.5 K/uL (0.0-0.8) 02/27/17 06:09 Eos # 0.3 K/uL (0.0-0.7) 02/27/17 06:09 Baso # 0.0 K/uL (0.0-0.2) 02/27/17 06:09 PT 10.9 SECONDS (9.7-12.2) 02/25/17 19:37 INR 1.0 02/25/17 19:37 APTT 28 SECONDS (21-34) 02/25/17 19:37 Sodium 133 mmol/L (132-148) 02/27/17 06:09 Potassium 4.0 mmol/L (3.6-5.2) 02/27/17 06:09 Chloride 98 mmol/L (98-107) 02/27/17 06:09 Carbon Dioxide 26 mmol/L (22-30) 02/27/17 06:09 Anion Gap 14 (10-20) 02/27/17 06:09 BUN 19 mg/dL (9-20) 02/27/17 06:09 Creatinine 0.7 MG/DL (0.8-1.5) L 02/27/17 06:09 Est GFR ( Amer) > 60 02/27/17 06:09 Est GFR (Non-Af Amer) > 60 02/27/17 06:09 POC Glucose (mg/dL) 246 mg/dL (65-110) H 02/27/17 16:17 Random Glucose 306 mg/dL (75-110) H 02/27/17 06:09 Hemoglobin A1c 12.3 % (4.2-6.5) H D 02/25/17 19:16 Calcium 8.8 mg/dl (8.6-10.4) 02/27/17 06:09 Phosphorus 3.7 mg/dL (2.5-4.5) 02/27/17 06:09 Magnesium 1.6 mg/dL (1.6-2.3) 02/27/17 06:09 Total Bilirubin 0.7 mg/dL (0.2-1.3) 02/27/17 06:09 AST 44 U/L (17-59) 02/27/17 06:09 ALT 79 U/L (21-72) H 02/27/17 06:09 Alkaline Phosphatase 82 U/L (38-126) 02/27/17 06:09 Total Creatine Kinase 42 U/L (55-170) L 02/25/17 23:50 CK-MB (Mass) 0.86 ng/mL (0.0-3.38) 02/25/17 23:50 Troponin I 0.0190 ng/mL (0.00-0.120) 02/26/17 06:23 Troponin I, Quant < 0.0120 ng/mL (0.00-0.120) 02/25/17 23:50 Total Protein 6.4 g/dL (6.3-8.3) 02/27/17 06:09 Albumin 3.2 g/dL (3.5-5.0) L 02/27/17 06:09 Globulin 3.1 gm/dL (2.2-3.9) 02/27/17 06:09 Albumin/Globulin Ratio 1.0 (1.0-2.1) 02/27/17 06:09 Triglycerides 128 mg/dL (0-149) D 02/25/17 19:16 Cholesterol 168 mg/dL (0-199) 02/25/17 19:16 LDL Cholesterol Direct 98 mg/dL (0-129) 02/25/17 19:16 HDL Cholesterol 45 mg/dL (30-70) 02/25/17 19:16 TSH 3rd Generation 1.20 mIU/L (0.46-4.68) 02/26/17 06:23 Urine Opiates Screen Negative (NEGATIVE) 02/26/17 00:31 Urine Methadone Screen Negative (NEGATIVE) 02/26/17 00:31 Ur Barbiturates Screen Negative (NEGATIVE) 02/26/17 00:31 Ur Phencyclidine Scrn Negative (NEGATIVE) 02/26/17 00:31 Ur Amphetamines Screen Negative (NEGATIVE) 02/26/17 00:31 U Benzodiazepines Scrn Negative (NEGATIVE) 02/26/17 00:31 U Oth Cocaine Metabols Negative (NEGATIVE) 02/26/17 00:31 U Cannabinoids Screen Negative (NEGATIVE) 02/26/17 00:31 Blood Type O POSITIVE 02/25/17 19:20 Antibody Screen Negative 02/25/17 19:20 Attending/Attestation - Attestation I have personally seen and examined this patient.: Yes I have fully participated in the care of the patient.: Yes I have reviewed all pertinent clinical information, including history, physical exam and plan: Yes Notes (Text): 02/28/17 09:12 Patient was seen and examined at bedside with the resident Patient does not have any complaints at this time All the workup is negative for acute CVA He shouldn't has been treated for TIA and will be discharged on DuoNeb and he preferred therapy as per the recommendations of for neurology I discussed the discharge plan with the resident and I agree with the discharge note by the resident
== END 2017-02-27 16:50 | disposition home or self-care (01) ==
LOC: C.ER 18:37 → C.9E 20:35 → C.6T 21:11
PROVIDERS: ADMIT Family Medicine; ATTEND Family Medicine
DX: R51 Headache (principal); I10 Essential (primary) hypertension; H54.7 Unspecified visual loss; E78.5 Hyperlipidemia, unspecified; B20 Human immunodeficiency virus [HIV] disease; E11.9 Type 2 diabetes mellitus without complications; Z87.891 Personal history of nicotine dependence
CPT/HCPCS: 36415; 70450; 70496; 70498; 70551; 71010; 80053; 80061; 80324; 80345; 80346; 80349; 80353; 80358; 80361; 82948; 83036; 83735; 83992; 84100; 84443; 84484; 85025; 85610; 85730; 86850; 86900; 93005; 93306; 93880; 96374; 97116; 97161; 97165; 97530; 99285; G0378; G8978; G8979; G8980; G8987; G8988; G8989; J1650; Q9967

== ENCOUNTER 2017-08-16 17:50 | Inpatient (IN) | payer OTHER ==
[2017-08-16 17:50] VITALS: BMI 25.2
[2017-08-16 19:08] LABS: BASO % 0.3 % (0.0-2.0); EOS # 0.2 K/uL (0.0-0.7); EOS % 2.7 % (0.0-4.0); HEMATOCRIT 38.9 % (35.0-51.0); LYMPH # 1.1 K/uL (1.0-4.3); LYMPH % 19.6 % (20.0-40.0); MEAN CELL VOLUME 88.6 fL (80.0-94.0); MEAN CORPUSCULAR HEMOGLOBIN 31.3 pg (27.0-31.0); MEAN CORPUSCULAR HGB CONC 35.3 g/dL (33.0-37.0); MEAN PLATELET VOLUME 9.3 fL (7.2-11.7); MONO # 0.5 K/uL (0.0-0.8); NRBC % 0.1 % (0.0-2.0); RED CELL DISTRIBUTION WIDTH 12.3 % (11.5-14.5); WHITE BLOOD COUNT 5.7 K/uL (4.8-10.8)
[2017-08-16 19:25] LABS: ALB/GLOB RATIO 1.2 (1.0-2.1); ALKALINE PHOSPHATASE 109 U/L (38-126); ALT/SGPT 100 U/L (21-72); AST/SGOT 36 U/L (17-59); BILIRUBIN,TOTAL 0.7 mg/dL (0.2-1.3); BLOOD UREA NITROGEN 16 mg/dL (9-20); CALCIUM 8.4 mg/dl (8.6-10.4); CARBON DIOXIDE 33 mmol/L (22-30); CHLORIDE 95 mmol/L (98-107); GFR AFRICAN-AMERICAN > 60; GLUCOSE,RANDOM 525 mg/dL (75-110); POTASSIUM 4.1 mmol/L (3.6-5.2); SODIUM 133 mmol/L (132-148); TOTAL PROTEIN 6.6 g/dL (6.3-8.3)
[2017-08-16] MEDS ORDERED: (Novolin R) Insulin Human Regular 100 units/ml vial IV STA (19:42)
[2017-08-16] MEDS ORDERED: (Novolin R) Insulin Human Regular 100 units/ml vial ONE (19:55)
--- NOTE | 2017-08-16 20:19 | C.PDOC ---
Time Seen by Provider: 08/16/17 18:53 Chief Complaint (Nursing): Chest Pain History Per: Patient, Family Onset/Duration Of Symptoms: Hrs (this afternoon), Intermittent Episodes Current Symptoms Are (Timing): Still Present Severity: Moderate Quality: Pressure Associated Symptoms: Dyspnea Modifying Factors: Other Indicated Below Alleviating Factors: None Nitro Therapy Administered: 1, Per ED, Complete Relief Additional History Per: Prior Records Past Medical History Reviewed: Historical Data, Nursing Documentation, Vital Signs Vital Signs: Last Vital Signs Temp 97.8 F 08/16/17 19:04 Pulse 67 08/16/17 19:04 Resp 16 08/16/17 19:04 BP 119/72 08/16/17 19:04 Pulse Ox 99 08/16/17 19:04 - Medical History PMH: Arthritis, CAD, Diabetes, HIV (undetectable), HTN, Hypercholesterolemia - [facility] Procedures ULTRASONOGRAPHY OF RIGHT AND LEFT HEART, TRANSESOPHAGEAL (09/10/16) Family History: States: Diabetes - Social History Hx Tobacco Use: Yes (1/2 pack daily) Hx Alcohol Use: Yes (QUIT 2004, WAS A HEAVY DRINKER) Hx Substance Use: No - Immunization History Hx Tetanus Toxoid Vaccination: Yes Hx Influenza Vaccination: Yes Hx Pneumococcal Vaccination: Yes Review Of Systems Except As Marked, All Systems Reviewed And Found Negative. Constitutional: Negative for: Fever, Weakness Cardiovascular: Positive for: Chest Pain Respiratory: Positive for: Cough (x 1 week), Shortness of Breath. Negative for : Hemoptysis Gastrointestinal: Negative for: Vomiting, Abdominal Pain Musculoskeletal: Negative for: Neck Pain, Back Pain, Leg Pain Skin: Negative for: Rash Neurological: Negative for: Weakness, Numbness Physical Exam - Physical Exam Appears: Non-toxic, No Acute Distress Skin: Normal Color, Warm, Dry, No Rash Head: Atraumatic, Normacephalic Eye(s): bilateral: PERRL, EOMI Neck: Normal ROM, Supple Cardiovascular: Rhythm Regular Respiratory: Normal Breath Sounds, No Accessory Muscle Use Gastrointestinal/Abdominal: Soft, No Tenderness Back: No CVA Tenderness Extremity: Normal ROM, No Pedal Edema, No Calf Tenderness Neurological/Psych: Oriented x3, Normal Motor, Normal Sensation ED Course And Treatment - Laboratory Results Result Diagrams: 08/16/17 19:06 08/16/17 19:06 Lab Interpretation: Abnormal Interpretation Of Abnormal: Hyperglycemia ECG: Interpreted By Me, Viewed By Me ECG Rhythm: Sinus Rhythm, Nonspecific Changes ECG Interpretation: No Acute Changes Rate From EC O2 Sat by Pulse Oximetry: 99 Pulse Ox Interpretation: Normal - Radiology CXR: Interpreted by Me, Viewed By Me CXR Interpretation: Yes: No Acute Disease Progress - Interventions Interventions:: Observation, Oxygen - Medications Administered Oral: Aspirin (given by EMS) Intravenous: Other (Insulin) - Data Reviewed Data Reviewed: Lab, Diagnostic imaging, EKG, Old records - Patient Status Patient status: Partially improved - Critical Care Citical Care: Excluding Proc Time Critical Care Time: 45 minutes - Continuity of Care Discussed patient case with:: Patient, Family-HIPPA compliant, ED Nurse, On- call PMD-pt unassigned - Patient Plan Patient Plan: Admission, Telemetry Disposition Discussed With : Yulia Angeles Comment: He accepted pt on his service and gave admitting orders to the nurse. Doctor Will See Patient In The: Hospital Counseled Patient/Family Regarding: Studies Performed, Diagnosis, Smoking Cessation - Disposition Disposition: HOSPITALIZED Disposition Time: 20:19 Condition: FAIR - Clinical Impression Clinical Impression: Uncontrolled diabetes mellitus with hyperglycemia, Acute chest pain
[2017-08-16] MEDS ORDERED: HYDROmorphone 1 mg/ml ISec IVP PRN ×2 (20:24→20:44)
[2017-08-16] MEDS: (Novolin R) Insulin Human Regular 100 units/ml vial SC SCH (21:41)
[2017-08-16] MEDS ORDERED: Home Med 1 UNIT (Simvastatin [Simvastatin] 20 MG) PO SCH (22:00)
[2017-08-17 05:28] LABS: MAGNESIUM 1.5 mg/dL (1.6-2.3)
[2017-08-17 08:08] LABS: BASO % 0.4 % (0.0-2.0); EOS # 0.2 K/uL (0.0-0.7); EOS % 3.4 % (0.0-4.0); HEMATOCRIT 38.1 % (35.0-51.0); LYMPH # 1.5 K/uL (1.0-4.3); LYMPH % 24.7 % (20.0-40.0); MEAN CELL VOLUME 88.5 fL (80.0-94.0); MEAN CORPUSCULAR HEMOGLOBIN 31.6 pg (27.0-31.0); MEAN CORPUSCULAR HGB CONC 35.7 g/dL (33.0-37.0); MEAN PLATELET VOLUME 8.9 fL (7.2-11.7); MONO # 0.5 K/uL (0.0-0.8); NRBC % 0.1 % (0.0-2.0); RED CELL DISTRIBUTION WIDTH 12.4 % (11.5-14.5)
[2017-08-17] MEDS: (Novolin R) Insulin Human Regular 100 units/ml vial SC SCH ×4 (08:15→22:04)
[2017-08-17 08:25] LABS: ALB/GLOB RATIO 1.1 (1.0-2.1); ALKALINE PHOSPHATASE 75 U/L (38-126); ALT/SGPT 91 U/L (21-72); AST/SGOT 34 U/L (17-59); BILIRUBIN,TOTAL 0.8 mg/dL (0.2-1.3); BLOOD UREA NITROGEN 20 mg/dL (9-20); CALCIUM 8.4 mg/dl (8.6-10.4); CARBON DIOXIDE 33 mmol/L (22-30); CHLORIDE 98 mmol/L (98-107); CHOLESTEROL 176 mg/dL (0-199); GFR AFRICAN-AMERICAN > 60; GLUCOSE,RANDOM 313 mg/dL (75-110); POTASSIUM 4.6 mmol/L (3.6-5.2); SODIUM 135 mmol/L (132-148); TOTAL PROTEIN 6.2 g/dL (6.3-8.3)
--- NOTE | 2017-08-17 09:24 | RAD ---
PROCEDURE: CHEST RADIOGRAPH, 1 VIEW HISTORY: chest pain, SOB, cough COMPARISON: Comparison is made to 02/25/2017 FINDINGS: LUNGS: Small opacity at the left lower lobe may represent atelectasis. The possibility of pneumonia is less likely. PLEURA: No pneumothorax or pleural fluid seen. CARDIOVASCULAR: Normal. OSSEOUS STRUCTURES: No significant abnormalities. VISUALIZED UPPER ABDOMEN: Normal. OTHER FINDINGS: None. IMPRESSION: Small opacity at the left lower lobe may represent atelectasis or less likely pneumonia.
[2017-08-17 09:33] LABS: THYROID STIMULATING HORMONE 0.27 mIU/L (0.46-4.68)
[2017-08-17] MEDS ORDERED: Magnesium Sulfate 1 gm in D5W 1 GM/100 ML BAG IVPB ONE (15:32)
--- NOTE | 2017-08-17 16:03 | CP.PCM.CON ---
History of Present Illness - History of Present Illness History of Present Illness: Consultation for evaluation of chest pain HPI: Review of Systems - Review of Systems Systems not reviewed;Unavailable: Acuity of Condition - Constitutional Constitutional: As Per HPI - EENT Eyes: As Per HPI Ears: As Per HPI Nose/Mouth/Throat: As Per HPI - Cardiovascular Cardiovascular: As Per HPI - Respiratory Respiratory: As Per HPI - Gastrointestinal Gastrointestinal: As Per HPI - Genitourinary Genitourinary: As Per HPI - Reproductive: Male Reproductive:Male: As Per HPI - Musculoskeletal Musculoskeletal: As Per HPI - Integumentary Integumentary: As Per HPI - Neurological Neurological: As Per HPI - Psychiatric Psychiatric: As Per HPI - Endocrine Endocrine: As Per HPI - Hematologic/Lymphatic Hematologic: As Per HPI Past Patient History - Infectious Disease Hx of Infectious Diseases: None - Past Medical History & Family History Past Medical History?: Yes - Past Social History Smoking Status: Light Smoker < 10 Cigarettes Daily - CARDIAC Hx Hypercholesterolemia: Yes Hx Hypertension: Yes - PULMONARY Hx Respiratory Disorders: No - NEUROLOGICAL Hx Paralysis: No - HEENT Hx HEENT Problems: No - RENAL Hx Chronic Kidney Disease: No - ENDOCRINE/METABOLIC Hx Diabetes Mellitus Type 2: Yes - HEMATOLOGICAL/ONCOLOGICAL Hx Human Immunodeficiency Virus (HIV): Yes (undetectable) - INTEGUMENTARY Hx Dermatological Problems: No - MUSCULOSKELETAL/RHEUMATOLOGICAL Hx Arthritis: Yes Hx Falls: No - GASTROINTESTINAL Hx Gastrointestinal Disorders: No - GENITOURINARY/GYNECOLOGICAL Hx Genitourinary Disorders: No - PSYCHIATRIC Hx Psychophysiologic Disorder: No Hx Substance Use: No - SURGICAL HISTORY Hx Surgeries: No - ANESTHESIA Hx Anesthesia: Yes Hx Anesthesia Reactions: No Hx Malignant Hyperthermia: No Meds Allergies/Adverse Reactions: Allergies Allergy/AdvReac Type Severity Reaction Status Date / Time No Known Allergies Allergy Verified 08/16/17 17:55 - Medications Medications: Current Medications Acetaminophen (Tylenol 325mg Tab) 650 mg PO Q6 PRN PRN Reason: Pain, Mild (1-3) Amlodipine Besylate (Norvasc) 10 mg PO DAILY [facility] Last Admin: 08/17/17 10:46 Dose: 10 mg Aspirin (Aspirin) 325 mg PO DAILY [facility] Last Admin: 08/17/17 10:46 Dose: 325 mg Clopidogrel Bisulfate (Plavix) 75 mg PO Q24H [facility] Last Admin: 08/16/17 20:52 Dose: 75 mg Gabapentin (Neurontin) 400 mg PO BID [facility] Last Admin: 08/17/17 10:46 Dose: 400 mg Hydromorphone HCl (Dilaudid) 1 mg IVP Q4H PRN PRN Reason: Pain, severe (8-10) Insulin Human Regular (Novolin R) 0 unit SC ACHS [facility] PRN Reason: Protocol Last Admin: 08/17/17 12:10 Dose: 4 unit Losartan Potassium (Cozaar) 100 mg PO DAILY [facility] Last Admin: 08/17/17 10:46 Dose: 100 mg Morphine Sulfate (Morphine) 2 mg IVP Q4H PRN PRN Reason: Pain, moderate (4-7) Last Admin: 08/17/17 04:52 Dose: 2 mg Nitroglycerin (Nitrostat Sl Tab) 0.4 mg SL Q5M PRN PRN Reason: chest pain Rosuvastatin Calcium (Crestor) 5 mg PO [facility] Last Admin: 08/16/17 22:30 Dose: 5 mg Physical Exam - Constitutional Appears: Well Results - Vital Signs Recent Vital Signs: Last Vital Signs Temp 97.6 F 08/17/17 08:39 Pulse 63 08/17/17 08:39 Resp 18 08/17/17 08:39 BP 136/79 08/17/17 08:39 Pulse Ox 95 08/17/17 08:39 - Labs Result Diagrams: 08/17/17 07:57 08/17/17 07:57 Labs: Laboratory Results - last 24 hr 08/16/17 08/16/17 08/16/17 19:06 19:06 21:41 WBC 5.7 RBC 4.39 L Hgb 13.7 Hct 38.9 MCV 88.6 MCH 31.3 H MCHC 35.3 RDW 12.3 Plt Count 159 MPV 9.3 Neut % (Auto) 69.4 Lymph % (Auto) 19.6 L [place] % (Auto) 8.0 Eos % (Auto) 2.7 Baso % (Auto) 0.3 Neut # 4.0 Lymph # 1.1 [place] # 0.5 Eos # 0.2 Baso # 0.0 Sodium 133 Potassium 4.1 Chloride 95 L Carbon Dioxide 33 H Anion Gap 8 L BUN 16 Creatinine 0.8 Est GFR ( Amer) > 60 Est GFR (Non-Af Amer) > 60 POC Glucose (mg/dL) 173 H Random Glucose 525 H* D Hemoglobin A1c Calcium 8.4 L Magnesium Total Bilirubin 0.7 AST 36 ALT 100 H D Alkaline Phosphatase 109 Lactate Dehydrogenase 377 Total Creatine Kinase 32 L CK-MB (Mass) 0.86 Troponin I < 0.0120 NT-Pro-B Natriuret Pep 361 Total Protein 6.6 Albumin 3.6 Globulin 3.0 Albumin/Globulin Ratio 1.2 Triglycerides Cholesterol LDL Cholesterol Direct HDL Cholesterol TSH 3rd Generation 08/17/17 08/17/17 08/17/17 05:09 06:28 07:57 WBC RBC Hgb Hct MCV MCH MCHC RDW Plt Count MPV Neut % (Auto) Lymph % (Auto) [place] % (Auto) Eos % (Auto) Baso % (Auto) Neut # Lymph # [place] # Eos # Baso # Sodium Potassium Chloride Carbon Dioxide Anion Gap BUN Creatinine Est GFR ( Amer) Est GFR (Non-Af Amer) POC Glucose (mg/dL) 292 H Random Glucose Hemoglobin A1c 10.6 H Calcium Magnesium 1.5 L Total Bilirubin AST ALT Alkaline Phosphatase Lactate Dehydrogenase Total Creatine Kinase 28 L CK-MB (Mass) 0.60 Troponin I < 0.0120 NT-Pro-B Natriuret Pep Total Protein Albumin Globulin Albumin/Globulin Ratio Triglycerides Cholesterol LDL Cholesterol Direct HDL Cholesterol TSH 3rd Generation 08/17/17 08/17/17 08/17/17 07:57 07:57 11:39 WBC 6.0 RBC 4.31 L Hgb 13.6 Hct 38.1 MCV 88.5 MCH 31.6 H MCHC 35.7 RDW 12.4 Plt Count 143 MPV 8.9 Neut % (Auto) 62.5 Lymph % (Auto) 24.7 [place] % (Auto) 9.0 Eos % (Auto) 3.4 Baso % (Auto) 0.4 Neut # 3.8 Lymph # 1.5 [place] # 0.5 Eos # 0.2 Baso # 0.0 Sodium 135 Potassium 4.6 Chloride 98 Carbon Dioxide 33 H Anion Gap 8 L BUN 20 Creatinine 0.8 Est GFR ( Amer) > 60 Est GFR (Non-Af Amer) > 60 POC Glucose (mg/dL) Random Glucose 313 H Hemoglobin A1c Calcium 8.4 L Magnesium Total Bilirubin 0.8 AST 34 ALT 91 H Alkaline Phosphatase 75 Lactate Dehydrogenase Total Creatine Kinase 30 L CK-MB (Mass) 0.64 Troponin I < 0.0120 NT-Pro-B Natriuret Pep Total Protein 6.2 L Albumin 3.3 L Globulin 2.9 Albumin/Globulin Ratio 1.1 Triglycerides 197 H D Cholesterol 176 LDL Cholesterol Direct 97 HDL Cholesterol 37 TSH 3rd Generation 0.27 L 08/17/17 11:58 WBC RBC Hgb Hct MCV MCH MCHC RDW Plt Count MPV Neut % (Auto) Lymph % (Auto) [place] % (Auto) Eos % (Auto) Baso % (Auto) Neut # Lymph # [place] # Eos # Baso # Sodium Potassium Chloride Carbon Dioxide Anion Gap BUN Creatinine Est GFR ( Amer) Est GFR (Non-Af Amer) POC Glucose (mg/dL) 342 H Random Glucose Hemoglobin A1c Calcium Magnesium Total Bilirubin AST ALT Alkaline Phosphatase Lactate Dehydrogenase Total Creatine Kinase CK-MB (Mass) Troponin I NT-Pro-B Natriuret Pep Total Protein Albumin Globulin Albumin/Globulin Ratio Triglycerides Cholesterol LDL Cholesterol Direct HDL Cholesterol TSH 3rd Generation Assessment & Plan (1) Acute chest pain Assessment and Plan: TnI x 3 -ve Known moderate LAD disease with physiologically non-significant FFR plan for stress test in am NPO p MN Status: Acute (2) Uncontrolled diabetes mellitus with hyperglycemia Status: Acute (3) Chest discomfort Status: Acute (4) Hyperlipidemia Status: Chronic (5) Hypertension Status: Chronic
[2017-08-17 16:24] VITALS: RESP 20
[2017-08-18] MEDS: (Novolin R) Insulin Human Regular 100 units/ml vial SC SCH ×4 (07:57→21:31)
[2017-08-18 08:45] LABS: BASO % 0.4 % (0.0-2.0); EOS # 0.2 K/uL (0.0-0.7); EOS % 2.8 % (0.0-4.0); HEMATOCRIT 39.6 % (35.0-51.0); LYMPH # 1.5 K/uL (1.0-4.3); LYMPH % 21.1 % (20.0-40.0); MEAN CELL VOLUME 87.4 fL (80.0-94.0); MEAN CORPUSCULAR HEMOGLOBIN 30.9 pg (27.0-31.0); MEAN CORPUSCULAR HGB CONC 35.3 g/dL (33.0-37.0); MEAN PLATELET VOLUME 9.2 fL (7.2-11.7); MONO # 0.5 K/uL (0.0-0.8); MONO % 7.5 % (0.0-10.0); NRBC % 0.1 % (0.0-2.0); RED CELL DISTRIBUTION WIDTH 12.2 % (11.5-14.5); WHITE BLOOD COUNT 7.2 K/uL (4.8-10.8)
[2017-08-18 09:10] LABS: ALKALINE PHOSPHATASE 85 U/L (38-126); ALT/SGPT 94 U/L (21-72); AST/SGOT 34 U/L (17-59); BILIRUBIN,TOTAL 0.8 mg/dL (0.2-1.3); BLOOD UREA NITROGEN 23 mg/dL (9-20); CALCIUM 8.5 mg/dl (8.6-10.4); CARBON DIOXIDE 34 mmol/L (22-30); CHLORIDE 97 mmol/L (98-107); CHOLESTEROL 180 mg/dL (0-199); GFR AFRICAN-AMERICAN > 60; GLUCOSE,RANDOM 311 mg/dL (75-110); POTASSIUM 4.5 mmol/L (3.6-5.2); SODIUM 132 mmol/L (132-148); TOTAL PROTEIN 6.4 g/dL (6.3-8.3)
[2017-08-18 09:22] LABS: ALB/GLOB RATIO 1.2 (1.0-2.1); THYROID STIMULATING HORMONE 0.33 mIU/L (0.46-4.68)
--- NOTE | 2017-08-18 09:34 | CP.PCM.PN ---
Subjective - Date & Time of Evaluation Date of Evaluation: 08/18/17 Time of Evaluation: 07:00 - Subjective Subjective: Patient seen and examined at bedside. States his original sensation of chest pressure, left ventral 5th digit numbness, shortness of breath, lip swelling sensation has resolved. Patient states he currently feels congested. Patient denies chest pain, shortness of breath, palpitations, fevers, chills, cough, headache. Patient is NPO for today's stress test. Objective - Vital Signs/Intake and Output Vital Signs (last 24 hours): Temp Pulse Resp BP Pulse Ox 97.5 F L 64 20 136/86 97 08/18/17 08:25 08/18/17 08:25 08/18/17 08:25 08/18/17 08:25 08/18/17 08:25 - Medications Medications: Current Medications Acetaminophen (Tylenol 325mg Tab) 650 mg PO Q6 PRN PRN Reason: Pain, Mild (1-3) Amlodipine Besylate (Norvasc) 10 mg PO DAILY [facility] Last Admin: 08/17/17 10:46 Dose: 10 mg Aspirin (Aspirin) 325 mg PO DAILY [facility] Last Admin: 08/17/17 10:46 Dose: 325 mg Clopidogrel Bisulfate (Plavix) 75 mg PO Q24H [facility] Last Admin: 08/17/17 22:57 Dose: 75 mg Gabapentin (Neurontin) 400 mg PO BID [facility] Last Admin: 08/17/17 17:33 Dose: 400 mg Hydromorphone HCl (Dilaudid) 1 mg IVP Q4H PRN PRN Reason: Pain, severe (8-10) Insulin Human Regular (Novolin R) 0 unit SC ACHS [facility] PRN Reason: Protocol Last Admin: 08/18/17 07:57 Dose: 3 unit Losartan Potassium (Cozaar) 100 mg PO DAILY [facility] Last Admin: 08/17/17 10:46 Dose: 100 mg Morphine Sulfate (Morphine) 2 mg IVP Q4H PRN PRN Reason: Pain, moderate (4-7) Last Admin: 08/17/17 22:31 Dose: 2 mg Nitroglycerin (Nitrostat Sl Tab) 0.4 mg SL Q5M PRN PRN Reason: chest pain Rosuvastatin Calcium (Crestor) 5 mg PO HS [facility] Last Admin: 08/17/17 22:31 Dose: 5 mg - Labs Labs: 08/18/17 08:19 08/18/17 08:19 PT 10.7 SECONDS (9.7-12.2) 08/17/17 16:51 INR 1.0 08/17/17 16:51 APTT 31 SECONDS (21-34) 08/17/17 16:51 - Constitutional Appears: Non-toxic, No Acute Distress - Head Exam Head Exam: ATRAUMATIC, NORMAL INSPECTION, NORMOCEPHALIC - Eye Exam Eye Exam: EOMI, Normal appearance - ENT Exam ENT Exam: Mucous Membranes Moist, Normal Exam - Neck Exam Neck Exam: Normal Inspection - Respiratory Exam Respiratory Exam: Clear to Ausculation Bilateral, NORMAL BREATHING PATTERN. absent: Chest Wall Tenderness, Decreased Breath Sounds, Rhonchi, Wheezes - Cardiovascular Exam Cardiovascular Exam: REGULAR RHYTHM, +S1, +S2. absent: Clicks, Gallop, Rubs - GI/Abdominal Exam GI & Abdominal Exam: Soft, Hypoactive Bowel Sounds. absent: Distended, Rigid, Tenderness - Neurological Exam Neurological Exam: Alert, Awake, Oriented x3 - Psychiatric Exam Psychiatric exam: Normal Affect, Normal Mood - Skin Skin Exam: Normal Color, Warm Assessment and Plan - Assessment and Plan (Free Text) Assessment: Patient is a 62 year old male with past medical history of CAD, dyslipidemia, hypertension, HIV, hepatitis C, CVA who presented to [facility] with complaints of chest discomfort, sensation of lip swelling, left 5th digit numbness, and shortness of breath. Plan: Assessment and Plan: 1. Chest Pain -TnI negative x 3 -Known moderate LAD disease with physiologically non-significant FFR -Stress test performed this a.m.; results pending -Continue with aspirin, plavix, nitroglycerin Status: Acute 2. Hyperlipidemia - ASCVD score 46% - Continue with Rosuvastatin 5 mg; low dose high intensity statin considering Hepatitis C diagnosis Status: Chronic 3. Hypertension -Continue with Norvasc 10 mg, Losartan 100 mg Status: Chronic 4. Uncontrolled diabetes mellitus with hyperglycemia - HgA1C 10.6 -Continue with medical management Status: Acute
[2017-08-18 10:22] LABS: FREE T4 1.2 ng/dL (0.78-2.19)
[2017-08-18 10:36] LABS: THYROID STIMULATING HORMONE 0.35 mIU/L (0.46-4.68)
--- NOTE | 2017-08-18 15:23 | CP.PCM.HP ---
Past Patient History - Infectious Disease Hx of Infectious Diseases: None - Past Medical History & Family History Past Medical History?: Yes - Past Social History Smoking Status: Light Smoker < 10 Cigarettes Daily - CARDIAC Hx Hypercholesterolemia: Yes Hx Hypertension: Yes - PULMONARY Hx Respiratory Disorders: No - NEUROLOGICAL Hx Paralysis: No - HEENT Hx HEENT Problems: No - RENAL Hx Chronic Kidney Disease: No - ENDOCRINE/METABOLIC Hx Diabetes Mellitus Type 2: Yes - HEMATOLOGICAL/ONCOLOGICAL Hx Human Immunodeficiency Virus (HIV): Yes (undetectable) - INTEGUMENTARY Hx Dermatological Problems: No - MUSCULOSKELETAL/RHEUMATOLOGICAL Hx Arthritis: Yes Hx Falls: No - GASTROINTESTINAL Hx Gastrointestinal Disorders: No - GENITOURINARY/GYNECOLOGICAL Hx Genitourinary Disorders: No - PSYCHIATRIC Hx Psychophysiologic Disorder: No Hx Substance Use: No - SURGICAL HISTORY Hx Surgeries: No - ANESTHESIA Hx Anesthesia: Yes Hx Anesthesia Reactions: No Hx Malignant Hyperthermia: No Meds Allergies/Adverse Reactions: Allergies Allergy/AdvReac Type Severity Reaction Status Date / Time No Known Allergies Allergy Verified 08/16/17 17:55 Results - Vital Signs Recent Vital Signs: Last Vital Signs Temp 97.5 F L 08/18/17 08:25 Pulse 64 08/18/17 08:25 Resp 20 08/18/17 08:25 BP 136/86 08/18/17 08:25 Pulse Ox 97 08/18/17 08:25 - Labs Result Diagrams: 08/18/17 08:19 08/18/17 08:19 Labs: Laboratory Results - last 24 hr 08/17/17 08/17/17 08/17/17 16:51 17:03 21:41 WBC RBC Hgb Hct MCV MCH MCHC RDW Plt Count MPV Neut % (Auto) Lymph % (Auto) [place] % (Auto) Eos % (Auto) Baso % (Auto) Neut # Lymph # [place] # Eos # Baso # PT 10.7 INR 1.0 APTT 31 Sodium Potassium Chloride Carbon Dioxide Anion Gap BUN Creatinine Est GFR ( Amer) Est GFR (Non-Af Amer) POC Glucose (mg/dL) 235 H 300 H Random Glucose Calcium Total Bilirubin AST ALT Alkaline Phosphatase Total Creatine Kinase CK-MB (Mass) Troponin I Total Protein Albumin Globulin Albumin/Globulin Ratio Triglycerides Cholesterol LDL Cholesterol Direct HDL Cholesterol Free T4 TSH 3rd Generation 08/18/17 08/18/17 08/18/17 06:31 08:19 08:19 WBC 7.2 RBC 4.53 Hgb 14.0 Hct 39.6 MCV 87.4 MCH 30.9 MCHC 35.3 RDW 12.2 Plt Count 161 MPV 9.2 Neut % (Auto) 68.2 Lymph % (Auto) 21.1 [place] % (Auto) 7.5 Eos % (Auto) 2.8 Baso % (Auto) 0.4 Neut # 4.9 Lymph # 1.5 [place] # 0.5 Eos # 0.2 Baso # 0.0 PT INR APTT Sodium 132 Potassium 4.5 Chloride 97 L Carbon Dioxide 34 H Anion Gap 6 L BUN 23 H Creatinine 0.8 Est GFR ( Amer) > 60 Est GFR (Non-Af Amer) > 60 POC Glucose (mg/dL) 269 H Random Glucose 311 H Calcium 8.5 L Total Bilirubin 0.8 AST 34 ALT 94 H Alkaline Phosphatase 85 Total Creatine Kinase CK-MB (Mass) Troponin I Total Protein 6.4 Albumin 3.4 L Globulin 3.0 Albumin/Globulin Ratio 1.2 Triglycerides 156 H D Cholesterol 180 LDL Cholesterol Direct 103 HDL Cholesterol 37 Free T4 TSH 3rd Generation 0.33 L 08/18/17 08/18/17 08/18/17 08:19 08:19 11:49 WBC RBC Hgb Hct MCV MCH MCHC RDW Plt Count MPV Neut % (Auto) Lymph % (Auto) [place] % (Auto) Eos % (Auto) Baso % (Auto) Neut # Lymph # [place] # Eos # Baso # PT INR APTT Sodium Potassium Chloride Carbon Dioxide Anion Gap BUN Creatinine Est GFR ( Amer) Est GFR (Non-Af Amer) POC Glucose (mg/dL) 379 H Random Glucose Calcium Total Bilirubin AST ALT Alkaline Phosphatase Total Creatine Kinase 23 L CK-MB (Mass) 0.60 Troponin I < 0.0120 Total Protein Albumin Globulin Albumin/Globulin Ratio Triglycerides Cholesterol LDL Cholesterol Direct HDL Cholesterol Free T4 1.20 TSH 3rd Generation 0.35 L
[2017-08-18] MEDS: Promethazine/Cod 6.25mg-10mg/5ml Syr UD PO PRN (17:51)
--- NOTE | 2017-08-18 19:12 | CARD ---
APPROVED REPORT EKG Measurement Heart [id number] <Conclusion> Sinus bradycardia Nonspecific T wave abnormality Abnormal ECG
--- NOTE | 2017-08-19 01:24 | CP.PCM.PN ---
Subjective - Date & Time of Evaluation Date of Evaluation: 08/15/17 Objective - Vital Signs/Intake and Output Vital Signs (last 24 hours): Temp Pulse Resp BP Pulse Ox 97.9 F 76 20 161/96 H 97 08/18/17 23:30 08/18/17 23:30 08/18/17 23:30 08/18/17 23:30 08/18/17 23:30 Intake and Output: 08/18/17 08/19/17 18:59 06:59 Intake Total 500 Balance 500 - Medications Medications: Current Medications Acetaminophen (Tylenol 325mg Tab) 650 mg PO Q6 PRN PRN Reason: Pain, Mild (1-3) Albuterol/Ipratropium (Duoneb 3 Mg/0.5 Mg (3 Ml) Ud) 3 ml INH RQ6 [facility] Amlodipine Besylate (Norvasc) 10 mg PO DAILY [facility] Last Admin: 08/18/17 11:28 Dose: 10 mg Aspirin (Aspirin) 325 mg PO DAILY [facility] Last Admin: 08/18/17 11:28 Dose: 325 mg Azithromycin (Zithromax) 500 mg PO DAILY [facility] Clopidogrel Bisulfate (Plavix) 75 mg PO Q24H [facility] Last Admin: 08/18/17 21:41 Dose: 75 mg Gabapentin (Neurontin) 400 mg PO BID [facility] Last Admin: 08/18/17 17:50 Dose: 400 mg Heparin Sodium (Porcine) (Heparin) 5,000 units SC Q12 [facility] Last Admin: 08/18/17 21:41 Dose: 5,000 units Hydromorphone HCl (Dilaudid) 1 mg IVP Q4H PRN PRN Reason: Pain, severe (8-10) Insulin Human Regular (Novolin R) 0 unit SC ACHS [facility] PRN Reason: Protocol Last Admin: 08/18/17 21:31 Dose: Not Given Losartan Potassium (Cozaar) 100 mg PO DAILY [facility] Last Admin: 08/18/17 11:28 Dose: 100 mg Morphine Sulfate (Morphine) 2 mg IVP Q4H PRN PRN Reason: Pain, moderate (4-7) Last Admin: 08/17/17 22:31 Dose: 2 mg Nitroglycerin (Nitrostat Sl Tab) 0.4 mg SL Q5M PRN PRN Reason: chest pain Promethazine HCl/Codeine (Phenergan/Codeine Oral Syrup) 5 ml PO Q4 PRN PRN Reason: Cough Last Admin: 08/18/17 17:51 Dose: 5 ml Rosuvastatin Calcium (Crestor) 5 mg PO HS [facility] Last Admin: 08/18/17 21:42 Dose: 5 mg - Labs Labs: 08/18/17 08:19 08/18/17 08:19 PT 10.7 SECONDS (9.7-12.2) 08/17/17 16:51 INR 1.0 08/17/17 16:51 APTT 31 SECONDS (21-34) 08/17/17 16:51
[2017-08-19] MEDS: Albuterol-Ipratrop 3 mg / 0.5 (3 ml) UD INH SCH ×4 (01:45→19:58)
[2017-08-19] MEDS: (Novolin R) Insulin Human Regular 100 units/ml vial SC SCH ×4 (08:30→22:05)
--- NOTE | 2017-08-19 08:51 | CP.PCM.PN ---
<Nikita Lynn - Last Filed: 08/19/17 08:52> Subjective - Date & Time of Evaluation Date of Evaluation: 08/19/17 Time of Evaluation: 06:30 - Subjective Subjective: Patient seen and examined at bedside in no acute distress receiving his breathing treatment. Patient states that he was feeling congested but not having any issues breathing; states he he usually suffers from congestion around this time every year, with it lasting a couple of weeks. Patient denies chest pain, shortness of breath, palpitations, headache, fevers, chills. Objective - Vital Signs/Intake and Output Vital Signs (last 24 hours): Temp Pulse Resp BP Pulse Ox 97.9 F 59 L 20 161/96 H 97 08/18/17 23:30 08/19/17 04:41 08/18/17 23:30 08/18/17 23:30 08/18/17 23:30 Intake and Output: 08/19/17 08/19/17 06:59 18:59 Intake Total 500 100 Balance 500 100 - Medications Medications: Current Medications Acetaminophen (Tylenol 325mg Tab) 650 mg PO Q6 PRN PRN Reason: Pain, Mild (1-3) Albuterol/Ipratropium (Duoneb 3 Mg/0.5 Mg (3 Ml) Ud) 3 ml INH RQ6 [facility] Last Admin: 08/19/17 08:05 Dose: 3 ml Amlodipine Besylate (Norvasc) 10 mg PO DAILY [facility] Last Admin: 08/18/17 11:28 Dose: 10 mg Aspirin (Aspirin) 325 mg PO DAILY [facility] Last Admin: 08/18/17 11:28 Dose: 325 mg Azithromycin (Zithromax) 500 mg PO DAILY [facility] Clopidogrel Bisulfate (Plavix) 75 mg PO Q24H [facility] Last Admin: 08/18/17 21:41 Dose: 75 mg Gabapentin (Neurontin) 400 mg PO BID [facility] Last Admin: 08/18/17 17:50 Dose: 400 mg Heparin Sodium (Porcine) (Heparin) 5,000 units SC Q12 [facility] Last Admin: 08/18/17 21:41 Dose: 5,000 units Hydromorphone HCl (Dilaudid) 1 mg IVP Q4H PRN PRN Reason: Pain, severe (8-10) Insulin Human Regular (Novolin R) 0 unit SC ACHS [facility] PRN Reason: Protocol Last Admin: 08/18/17 21:31 Dose: Not Given Losartan Potassium (Cozaar) 100 mg PO DAILY [facility] Last Admin: 08/18/17 11:28 Dose: 100 mg Morphine Sulfate (Morphine) 2 mg IVP Q4H PRN PRN Reason: Pain, moderate (4-7) Last Admin: 08/17/17 22:31 Dose: 2 mg Nitroglycerin (Nitrostat Sl Tab) 0.4 mg SL Q5M PRN PRN Reason: chest pain Promethazine HCl/Codeine (Phenergan/Codeine Oral Syrup) 5 ml PO Q4 PRN PRN Reason: Cough Last Admin: 08/18/17 17:51 Dose: 5 ml Rosuvastatin Calcium (Crestor) 5 mg PO HS [facility] Last Admin: 08/18/17 21:42 Dose: 5 mg - Labs Labs: 08/18/17 08:19 08/18/17 08:19 PT 10.7 SECONDS (9.7-12.2) 08/17/17 16:51 INR 1.0 08/17/17 16:51 APTT 31 SECONDS (21-34) 08/17/17 16:51 - Head Exam Head Exam: ATRAUMATIC, NORMAL INSPECTION, NORMOCEPHALIC - Eye Exam Eye Exam: EOMI, Normal appearance - ENT Exam ENT Exam: Mucous Membranes Moist, Normal Exam - Neck Exam Neck Exam: Full ROM, Normal Inspection - Respiratory Exam Respiratory Exam: Clear to Ausculation Bilateral, NORMAL BREATHING PATTERN. absent: Wheezes - Cardiovascular Exam Cardiovascular Exam: REGULAR RHYTHM, +S1, +S2 - GI/Abdominal Exam GI & Abdominal Exam: Soft, Normal Bowel Sounds - Extremities Exam Extremities Exam: Normal Inspection - Neurological Exam Neurological Exam: Alert, Awake, Oriented x3 - Psychiatric Exam Psychiatric exam: Normal Affect, Normal Mood - Skin Skin Exam: Normal Color, Warm Assessment and Plan - Assessment and Plan (Free Text) Assessment: Patient is a 62 year old male with past medical history of CAD, dyslipidemia, hypertension, HIV, hepatitis C, CVA who presented to [facility] ([facility] with complaints of chest discomfort, sensation of lip swelling, left 5th digit numbness, and shortness of breath. Plan: Plan: Assessment and Plan: 1. Chest Pain -TnI negative x 3 -Known moderate LAD disease with physiologically non-significant FFR -Stress test performed this a.m.; results pending -Continue with aspirin, plavix, nitroglycerin Status: Acute 2. Hyperlipidemia - ASCVD score 46% - Continue with Rosuvastatin 5 mg; low dose high intensity statin considering Hepatitis C diagnosis Status: Chronic 3. Hypertension - Blood Pressure elevated; considering raising Losartan dosage. - BB therapy not initiated due to bradycardia? -Continue with Norvasc 10 mg, Losartan 100 mg Status: Chronic 4. Uncontrolled diabetes mellitus with hyperglycemia - HgA1C 10.6 -Continue with medical management Status: Acute <Arsenio Lang - Last Filed: 08/19/17 15:25> Objective - Vital Signs/Intake and Output Vital Signs (last 24 hours): Temp Pulse Resp BP Pulse Ox 97.9 F 67 20 129/77 96 08/19/17 09:02 08/19/17 09:02 08/19/17 09:02 08/19/17 09:02 08/19/17 09:02 Intake and Output: 08/19/17 08/19/17 06:59 18:59 Intake Total 500 100 Balance 500 100 - Medications Medications: Current Medications Acetaminophen (Tylenol 325mg Tab) 650 mg PO Q6 PRN PRN Reason: Pain, Mild (1-3) Albuterol/Ipratropium (Duoneb 3 Mg/0.5 Mg (3 Ml) Ud) 3 ml INH RQ6 [facility] Last Admin: 08/19/17 14:25 Dose: 3 ml Amlodipine Besylate (Norvasc) 10 mg PO DAILY [facility] Last Admin: 08/19/17 10:37 Dose: 10 mg Aspirin (Aspirin) 325 mg PO DAILY [facility] Last Admin: 08/19/17 10:36 Dose: 325 mg Azithromycin (Zithromax) 500 mg PO DAILY [facility] Last Admin: 08/19/17 10:37 Dose: 500 mg Clopidogrel Bisulfate (Plavix) 75 mg PO Q24H [facility] Last Admin: 08/18/17 21:41 Dose: 75 mg Gabapentin (Neurontin) 400 mg PO BID [facility] Last Admin: 08/19/17 10:37 Dose: 400 mg Heparin Sodium (Porcine) (Heparin) 5,000 units SC Q12 [facility] Last Admin: 08/19/17 10:37 Dose: 5,000 units Hydromorphone HCl (Dilaudid) 1 mg IVP Q4H PRN PRN Reason: Pain, severe (8-10) Insulin Human Regular (Novolin R) 0 unit SC ACHS [facility] PRN Reason: Protocol Last Admin: 08/19/17 12:30 Dose: 6 unit Losartan Potassium (Cozaar) 100 mg PO DAILY [facility] Last Admin: 08/19/17 10:37 Dose: 100 mg Morphine Sulfate (Morphine) 2 mg IVP Q4H PRN PRN Reason: Pain, moderate (4-7) Last Admin: 08/17/17 22:31 Dose: 2 mg Nitroglycerin (Nitrostat Sl Tab) 0.4 mg SL Q5M PRN PRN Reason: chest pain Last Admin: 08/19/17 11:39 Dose: 0.4 mg Promethazine HCl/Codeine (Phenergan/Codeine Oral Syrup) 5 ml PO Q4 PRN PRN Reason: Cough Last Admin: 08/18/17 17:51 Dose: 5 ml Rosuvastatin Calcium (Crestor) 5 mg PO HS [facility] Last Admin: 08/18/17 21:42 Dose: 5 mg - Labs Labs: 08/18/17 08:19 08/18/17 08:19 PT 10.7 SECONDS (9.7-12.2) 08/17/17 16:51 INR 1.0 08/17/17 16:51 APTT 31 SECONDS (21-34) 08/17/17 16:51 Assessment and Plan (1) Acute chest pain Status: Acute (2) Uncontrolled diabetes mellitus with hyperglycemia Status: Acute (3) Chest discomfort Status: Acute (4) Hyperlipidemia Status: Chronic (5) Hypertension Status: Chronic Attending/Attestation - Attestation I have personally seen and examined this patient.: Yes I have fully participated in the care of the patient.: Yes I have reviewed all pertinent clinical information, including history, physical exam and plan: Yes Notes (Text): 08/19/17 15:24 stress test reviewed mild anteroapical defect known mid LAD 50%-60% lesion will treat medically for now and consider PCI if patient has recurrent Cp on maximal medical therapy
--- NOTE | 2017-08-19 11:46 | CP.PCM.PN ---
Subjective - Date & Time of Evaluation Date of Evaluation: 08/19/17 Time of Evaluation: 11:25 - Subjective Subjective: [employer] CC- chest pain HPI- this is a 62 year old male with past medical history of CAD, dyslipidemia, hypertension, admitted with chest pain, left 5th digit numbness, and shortness of breath. Patient seen and examined at bed side , c/o chest pain , pressure like pain , radiates to the left axilla and numbness to the left 5th finger , pain last less than 5 minutes and subsides now , denies any abdominal pain, diaphoresis , N/V/D. VSS- bp 154.89, hr 82, 20 , 97.6 spo2 96% RA Objective - Vital Signs/Intake and Output Vital Signs (last 24 hours): Temp Pulse Resp BP Pulse Ox 97.9 F 67 20 129/77 96 08/19/17 09:02 08/19/17 09:02 08/19/17 09:02 08/19/17 09:02 08/19/17 09:02 Intake and Output: 08/19/17 08/19/17 06:59 18:59 Intake Total 500 100 Balance 500 100 - Medications Medications: Current Medications Acetaminophen (Tylenol 325mg Tab) 650 mg PO Q6 PRN PRN Reason: Pain, Mild (1-3) Albuterol/Ipratropium (Duoneb 3 Mg/0.5 Mg (3 Ml) Ud) 3 ml INH RQ6 [facility] Last Admin: 08/19/17 08:05 Dose: 3 ml Amlodipine Besylate (Norvasc) 10 mg PO DAILY [facility] Last Admin: 08/19/17 10:37 Dose: 10 mg Aspirin (Aspirin) 325 mg PO DAILY [facility] Last Admin: 08/19/17 10:36 Dose: 325 mg Azithromycin (Zithromax) 500 mg PO DAILY [facility] Last Admin: 08/19/17 10:37 Dose: 500 mg Clopidogrel Bisulfate (Plavix) 75 mg PO Q24H [facility] Last Admin: 08/18/17 21:41 Dose: 75 mg Gabapentin (Neurontin) 400 mg PO BID [facility] Last Admin: 08/19/17 10:37 Dose: 400 mg Heparin Sodium (Porcine) (Heparin) 5,000 units SC Q12 [facility] Last Admin: 08/19/17 10:37 Dose: 5,000 units Hydromorphone HCl (Dilaudid) 1 mg IVP Q4H PRN PRN Reason: Pain, severe (8-10) Insulin Human Regular (Novolin R) 0 unit SC ACHS [facility] PRN Reason: Protocol Last Admin: 08/19/17 08:30 Dose: 3 unit Losartan Potassium (Cozaar) 100 mg PO DAILY [facility] Last Admin: 08/19/17 10:37 Dose: 100 mg Morphine Sulfate (Morphine) 2 mg IVP Q4H PRN PRN Reason: Pain, moderate (4-7) Last Admin: 08/17/17 22:31 Dose: 2 mg Nitroglycerin (Nitrostat Sl Tab) 0.4 mg SL Q5M PRN PRN Reason: chest pain Promethazine HCl/Codeine (Phenergan/Codeine Oral Syrup) 5 ml PO Q4 PRN PRN Reason: Cough Last Admin: 08/18/17 17:51 Dose: 5 ml Rosuvastatin Calcium (Crestor) 5 mg PO HS [facility] Last Admin: 08/18/17 21:42 Dose: 5 mg - Labs Labs: 08/18/17 08:19 08/18/17 08:19 PT 10.7 SECONDS (9.7-12.2) 08/17/17 16:51 INR 1.0 08/17/17 16:51 APTT 31 SECONDS (21-34) 08/17/17 16:51 - Constitutional Appears: Well, No Acute Distress - Cardiovascular Exam Cardiovascular Exam: REGULAR RHYTHM, +S1, +S2 - Neurological Exam Neurological Exam: Alert, Awake, Oriented x3 Assessment and Plan - Assessment and Plan (Free Text) Assessment: A/P 62 yr old male admitted with chest pain , SOB and left 5th finger numbness troponin x 3 - negative so far s/p stress test- result pending will do EKG and troponin patient already received aspirin 325 mg EKG- NSR with PVC , D/W Dr. hwang
--- NOTE | 2017-08-19 18:25 | CP.PCM.PN ---
Subjective - Date & Time of Evaluation Date of Evaluation: 08/19/17 Time of Evaluation: 16:30 Objective - Vital Signs/Intake and Output Vital Signs (last 24 hours): Temp Pulse Resp BP Pulse Ox 97.8 F 99 H 20 147/81 96 08/19/17 16:00 08/19/17 16:00 08/19/17 16:00 08/19/17 16:00 08/19/17 16:00 Intake and Output: 08/19/17 08/19/17 06:59 18:59 Intake Total 500 380 Balance 500 380 - Medications Medications: Current Medications Acetaminophen (Tylenol 325mg Tab) 650 mg PO Q6 PRN PRN Reason: Pain, Mild (1-3) Albuterol/Ipratropium (Duoneb 3 Mg/0.5 Mg (3 Ml) Ud) 3 ml INH RQ6 [facility] Last Admin: 08/19/17 14:25 Dose: 3 ml Amlodipine Besylate (Norvasc) 10 mg PO DAILY [facility] Last Admin: 08/19/17 10:37 Dose: 10 mg Aspirin (Aspirin) 325 mg PO DAILY [facility] Last Admin: 08/19/17 10:36 Dose: 325 mg Azithromycin (Zithromax) 500 mg PO DAILY [facility] Last Admin: 08/19/17 10:37 Dose: 500 mg Clopidogrel Bisulfate (Plavix) 75 mg PO Q24H [facility] Last Admin: 08/18/17 21:41 Dose: 75 mg Gabapentin (Neurontin) 400 mg PO BID [facility] Last Admin: 08/19/17 10:37 Dose: 400 mg Heparin Sodium (Porcine) (Heparin) 5,000 units SC Q12 [facility] Last Admin: 08/19/17 10:37 Dose: 5,000 units Hydromorphone HCl (Dilaudid) 1 mg IVP Q4H PRN PRN Reason: Pain, severe (8-10) Insulin Human Regular (Novolin R) 0 unit SC ACHS [facility] PRN Reason: Protocol Last Admin: 08/19/17 16:57 Dose: 6 unit Losartan Potassium (Cozaar) 100 mg PO DAILY [facility] Last Admin: 08/19/17 10:37 Dose: 100 mg Morphine Sulfate (Morphine) 2 mg IVP Q4H PRN PRN Reason: Pain, moderate (4-7) Last Admin: 08/17/17 22:31 Dose: 2 mg Nitroglycerin (Nitrostat Sl Tab) 0.4 mg SL Q5M PRN PRN Reason: chest pain Last Admin: 08/19/17 11:39 Dose: 0.4 mg Promethazine HCl/Codeine (Phenergan/Codeine Oral Syrup) 5 ml PO Q4 PRN PRN Reason: Cough Last Admin: 08/18/17 17:51 Dose: 5 ml Rosuvastatin Calcium (Crestor) 5 mg PO HS [facility] Last Admin: 08/18/17 21:42 Dose: 5 mg - Labs Labs: 08/18/17 08:19 08/18/17 08:19 PT 10.7 SECONDS (9.7-12.2) 08/17/17 16:51 INR 1.0 08/17/17 16:51 APTT 31 SECONDS (21-34) 08/17/17 16:51
[2017-08-19] MEDS ORDERED: (Novolin R) Insulin Human Regular 100 units/ml vial SC ONE ×2 (19:02→21:51)
--- NOTE | 2017-08-19 20:47 | CARD ---
APPROVED REPORT EKG Measurement Heart [id number] [place] [id number] <Conclusion> Sinus rhythm with occasional premature ventricular complexes Nonspecific T wave abnormality Abnormal ECG
[2017-08-19] MEDS: Promethazine/Cod 6.25mg-10mg/5ml Syr UD PO PRN (22:04)
[2017-08-20] MEDS: Albuterol-Ipratrop 3 mg / 0.5 (3 ml) UD INH SCH ×3 (08:08→20:45)
--- NOTE | 2017-08-20 09:05 | CP.PCM.PN ---
<Nikita Lynn - Last Filed: 08/20/17 11:41> Subjective - Date & Time of Evaluation Date of Evaluation: 08/20/17 Time of Evaluation: 07:30 - Subjective Subjective: Patient seen and examined at bedside in no acute distress. Patient states that around 11 a.m. on 08/19 he experienced his first episode of chest discomfort. States it wasn't a chest pain but was a sensation of anxiety and fear that causes a sensation in his chest. Patient states that from time to time he experiences this. Patient states he was not exerting any force at the time of the episode and is usually just resting when this happens. He also states this episode occurred three more times after the first episode with the last episode occurring around 6 p.m. He states he did not tell his nurse of the three episodes which followed the first episode. Admits to resolving on chest congestion he was feeling the days prior. Patient denies current chest pain, shortness of breath, palpitations, fevers, chills. Patient is aware of procedure today at [facility]. Objective - Vital Signs/Intake and Output Vital Signs (last 24 hours): Temp Pulse Resp BP Pulse Ox 97.5 F L 65 20 135/77 96 08/20/17 08:57 08/20/17 08:57 08/20/17 08:57 08/20/17 08:57 08/20/17 08:57 Intake and Output: 08/20/17 08/20/17 06:59 18:59 Intake Total 600 100 Balance 600 100 - Medications Medications: Current Medications Acetaminophen (Tylenol 325mg Tab) 650 mg PO Q6 PRN PRN Reason: Pain, Mild (1-3) Albuterol/Ipratropium (Duoneb 3 Mg/0.5 Mg (3 Ml) Ud) 3 ml INH RQ6 [facility] Last Admin: 08/19/17 19:58 Dose: 3 ml Amlodipine Besylate (Norvasc) 10 mg PO DAILY [facility] Last Admin: 08/19/17 10:37 Dose: 10 mg Aspirin (Aspirin) 325 mg PO DAILY [facility] Last Admin: 08/19/17 10:36 Dose: 325 mg Azithromycin (Zithromax) 500 mg PO DAILY [facility] Last Admin: 08/19/17 10:37 Dose: 500 mg Clopidogrel Bisulfate (Plavix) 75 mg PO Q24H [facility] Last Admin: 12/12/17 22:04 Dose: 75 mg Gabapentin (Neurontin) 400 mg PO BID [facility] Last Admin: 08/19/17 18:23 Dose: 400 mg Heparin Sodium (Porcine) (Heparin) 5,000 units SC Q12 [facility] Last Admin: 08/19/17 22:04 Dose: 5,000 units Hydromorphone HCl (Dilaudid) 1 mg IVP Q4H PRN PRN Reason: Pain, severe (8-10) Insulin Human Regular (Novolin R) 0 unit SC ACHS [facility] PRN Reason: Protocol Last Admin: 08/19/17 22:05 Dose: 3 unit Losartan Potassium (Cozaar) 100 mg PO DAILY [facility] Last Admin: 08/19/17 10:37 Dose: 100 mg Morphine Sulfate (Morphine) 2 mg IVP Q4H PRN PRN Reason: Pain, moderate (4-7) Last Admin: 08/17/17 22:31 Dose: 2 mg Nitroglycerin (Nitrostat Sl Tab) 0.4 mg SL Q5M PRN PRN Reason: chest pain Last Admin: 08/19/17 11:39 Dose: 0.4 mg Promethazine HCl/Codeine (Phenergan/Codeine Oral Syrup) 5 ml PO Q4 PRN PRN Reason: Cough Last Admin: 08/19/17 22:04 Dose: 5 ml Rosuvastatin Calcium (Crestor) 5 mg PO HS [facility] Last Admin: 08/19/17 22:04 Dose: 5 mg - Labs Labs: 08/18/17 08:19 08/18/17 08:19 PT 10.7 SECONDS (9.7-12.2) 08/17/17 16:51 INR 1.0 08/17/17 16:51 APTT 31 SECONDS (21-34) 08/17/17 16:51 - Constitutional Appears: Non-toxic, No Acute Distress - Head Exam Head Exam: ATRAUMATIC, NORMAL INSPECTION, NORMOCEPHALIC - Eye Exam Eye Exam: EOMI, Normal appearance - ENT Exam ENT Exam: Mucous Membranes Moist - Neck Exam Neck Exam: Full ROM, Normal Inspection - Respiratory Exam Respiratory Exam: Rhonchi (lower quadrant), NORMAL BREATHING PATTERN - Cardiovascular Exam Cardiovascular Exam: REGULAR RHYTHM, +S1, +S2 - GI/Abdominal Exam GI & Abdominal Exam: Soft, Normal Bowel Sounds - Extremities Exam Extremities Exam: Normal Inspection - Back Exam Back Exam: NORMAL INSPECTION - Neurological Exam Neurological Exam: Alert, Awake, Oriented x3 - Psychiatric Exam Psychiatric exam: Normal Affect, Normal Mood - Skin Skin Exam: Normal Color, Warm Assessment and Plan - Assessment and Plan (Free Text) Assessment: Patient is a 62 year old male with past medical history of CAD, dyslipidemia, hypertension, HIV, hepatitis C, CVA who presented to [facility] with complaints of chest discomfort, sensation of lip swelling, left 5th digit numbness, and shortness of breath. Plan: 1. Chest Pain -TnI negative x 3 -Known moderate LAD disease with physiologically non-significant FFR -Stress test revealed mild anteroapical defect. Patient has known mid LAD 50%-60 % lesion; medical management pending recurrent chest pain on maximal medical therapy -Continue with aspirin, plavix, nitroglycerin -Chest discomfort presented a total of four times yesterday s/p stress test; intervention planned for today at 2:00 p.m. at [facility]. Status: Acute 2. Hyperlipidemia - ASCVD score 46% - Continue with Rosuvastatin 5 mg; low dose high intensity statin considering Hepatitis C diagnosis Status: Chronic 3. Hypertension -Blood Pressure elevated; considering raising Losartan dosage. -BB therapy not initiated due to bradycardia? -Continue with Norvasc 10 mg, Losartan 100 mg Status: Chronic 4. Uncontrolled diabetes mellitus with hyperglycemia - HgA1C 10.6 -Continue with medical management Status: Acute <Arsenio Lang - Last Filed: 08/21/17 01:16> Objective - Vital Signs/Intake and Output Vital Signs (last 24 hours): Temp Pulse Resp BP Pulse Ox 97.5 F L 99 H 20 135/77 96 08/20/17 08:57 08/21/17 00:25 08/20/17 08:57 08/20/17 08:57 08/20/17 08:57 Intake and Output: 08/20/17 08/21/17 18:59 06:59 Intake Total 100 Balance 100 - Medications Medications: Current Medications Acetaminophen (Tylenol 325mg Tab) 650 mg PO Q6 PRN PRN Reason: Pain, Mild (1-3) Albuterol/Ipratropium (Duoneb 3 Mg/0.5 Mg (3 Ml) Ud) 3 ml INH RQ6 [facility] Last Admin: 08/20/17 20:45 Dose: Not Given Amlodipine Besylate (Norvasc) 10 mg PO DAILY [facility] Last Admin: 08/20/17 10:19 Dose: 10 mg Aspirin (Aspirin) 325 mg PO DAILY [facility] Last Admin: 08/20/17 10:19 Dose: 325 mg Azithromycin (Zithromax) 500 mg PO DAILY [facility] Last Admin: 08/20/17 10:19 Dose: 500 mg Clopidogrel Bisulfate (Plavix) 75 mg PO Q24H [facility] Last Admin: 08/20/17 19:49 Dose: Not Given Gabapentin (Neurontin) 400 mg PO BID [facility] Last Admin: 08/20/17 18:31 Dose: Not Given Heparin Sodium (Porcine) (Heparin) 5,000 units SC Q12 [facility] Last Admin: 08/19/17 22:04 Dose: 5,000 units Insulin Human Regular (Novolin R) 0 unit SC ACHS [facility] PRN Reason: Protocol Last Admin: 08/20/17 23:03 Dose: Not Given Losartan Potassium (Cozaar) 100 mg PO DAILY [facility] Last Admin: 08/20/17 10:19 Dose: 100 mg Morphine Sulfate (Morphine) 2 mg IVP Q4H PRN PRN Reason: Pain, moderate (4-7) Last Admin: 08/17/17 22:31 Dose: 2 mg Nitroglycerin (Nitrostat Sl Tab) 0.4 mg SL Q5M PRN PRN Reason: chest pain Last Admin: 08/19/17 11:39 Dose: 0.4 mg Promethazine HCl/Codeine (Phenergan/Codeine Oral Syrup) 5 ml PO Q4 PRN PRN Reason: Cough Last Admin: 08/19/17 22:04 Dose: 5 ml Rosuvastatin Calcium (Crestor) 5 mg PO HS [facility] Last Admin: 08/20/17 23:02 Dose: Not Given - Labs Labs: 08/18/17 08:19 08/18/17 08:19 PT 10.7 SECONDS (9.7-12.2) 08/17/17 16:51 INR 1.0 08/17/17 16:51 APTT 31 SECONDS (21-34) 08/17/17 16:51 Assessment and Plan (1) Acute chest pain Status: Acute (2) Uncontrolled diabetes mellitus with hyperglycemia Status: Acute (3) Chest discomfort Status: Acute (4) Hyperlipidemia Status: Chronic (5) Hypertension Status: Chronic Attending/Attestation - Attestation I have personally seen and examined this patient.: Yes I have fully participated in the care of the patient.: Yes I have reviewed all pertinent clinical information, including history, physical exam and plan: Yes Notes (Text): 08/21/17 01:15 stress test showed anteroapical defect s/p cath at [facility] with PCI of mid LAD DAPT GDMT for CAD
[2017-08-20] MEDS: (Novolin R) Insulin Human Regular 100 units/ml vial SC SCH ×4 (10:25→23:03)
--- NOTE | 2017-08-20 10:52 | CP.PCM.PN ---
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 Patient seen today, denies any sob, chest pain, abdominal pain, c/o palpitations and c/o un comfortable feeling in the chest s/p stress test - result pending Patient scheduled for cardiac cath at [facility] Objective - Vital Signs/Intake and Output Vital Signs (last 24 hours): Temp Pulse Resp BP Pulse Ox 97.5 F L 65 20 135/77 96 08/20/17 08:57 08/20/17 08:57 08/20/17 08:57 08/20/17 08:57 08/20/17 08:57 Intake and Output: 08/20/17 08/20/17 06:59 18:59 Intake Total 600 100 Balance 600 100 - Medications Medications: Current Medications Acetaminophen (Tylenol 325mg Tab) 650 mg PO Q6 PRN PRN Reason: Pain, Mild (1-3) Albuterol/Ipratropium (Duoneb 3 Mg/0.5 Mg (3 Ml) Ud) 3 ml INH RQ6 [facility] Last Admin: 08/20/17 08:08 Dose: 3 ml Amlodipine Besylate (Norvasc) 10 mg PO DAILY [facility] Last Admin: 08/20/17 10:19 Dose: 10 mg Aspirin (Aspirin) 325 mg PO DAILY [facility] Last Admin: 08/20/17 10:19 Dose: 325 mg Azithromycin (Zithromax) 500 mg PO DAILY [facility] Last Admin: 08/20/17 10:19 Dose: 500 mg Clopidogrel Bisulfate (Plavix) 75 mg PO Q24H [facility] Last Admin: 08/19/17 22:04 Dose: 75 mg Gabapentin (Neurontin) 400 mg PO BID [facility] Last Admin: 08/20/17 10:19 Dose: 400 mg Heparin Sodium (Porcine) (Heparin) 5,000 units SC Q12 [facility] Last Admin: 08/19/17 22:04 Dose: 5,000 units Hydromorphone HCl (Dilaudid) 1 mg IVP Q4H PRN PRN Reason: Pain, severe (8-10) Insulin Human Regular (Novolin R) 0 unit SC ACHS [facility] PRN Reason: Protocol Last Admin: 08/20/17 10:25 Dose: 1 unit Losartan Potassium (Cozaar) 100 mg PO DAILY [facility] Last Admin: 08/20/17 10:19 Dose: 100 mg Morphine Sulfate (Morphine) 2 mg IVP Q4H PRN PRN Reason: Pain, moderate (4-7) Last Admin: 08/17/17 22:31 Dose: 2 mg Nitroglycerin (Nitrostat Sl Tab) 0.4 mg SL Q5M PRN PRN Reason: chest pain Last Admin: 08/19/17 11:39 Dose: 0.4 mg Promethazine HCl/Codeine (Phenergan/Codeine Oral Syrup) 5 ml PO Q4 PRN PRN Reason: Cough Last Admin: 08/19/17 22:04 Dose: 5 ml Rosuvastatin Calcium (Crestor) 5 mg PO HS [facility] Last Admin: 08/19/17 22:04 Dose: 5 mg - Labs Labs: 08/18/17 08:19 08/18/17 08:19 PT 10.7 SECONDS (9.7-12.2) 08/17/17 16:51 INR 1.0 08/17/17 16:51 APTT 31 SECONDS (21-34) 08/17/17 16:51 Assessment and Plan - Assessment and Plan (Free Text) Assessment: A/P 62 yr old 62 yr old male admitted with chest pain , SOB and left 5th finger numbness troponin x 4- negative s/p stress test- result pending Patient schedule for cardiac cath at [facility] D/W patient , who agrees for the procedure
[2017-08-20] MEDS ORDERED: Sodium Chloride 0.9% 1,000 ML IV SCH (15:30)
[2017-08-21] MEDS: Albuterol-Ipratrop 3 mg / 0.5 (3 ml) UD INH SCH ×3 (02:04→19:36)
--- NOTE | 2017-08-21 02:19 | CP.PCM.PN ---
Subjective - Date & Time of Evaluation Date of Evaluation: 08/20/17 Time of Evaluation: 20:00 Objective - Vital Signs/Intake and Output Vital Signs (last 24 hours): Temp Pulse Resp BP Pulse Ox 97.5 F L 99 H 20 135/77 96 08/20/17 08:57 08/21/17 00:25 08/20/17 08:57 08/20/17 08:57 08/20/17 08:57 Intake and Output: 08/20/17 08/21/17 18:59 06:59 Intake Total 100 Balance 100 - Medications Medications: Current Medications Acetaminophen (Tylenol 325mg Tab) 650 mg PO Q6 PRN PRN Reason: Pain, Mild (1-3) Albuterol/Ipratropium (Duoneb 3 Mg/0.5 Mg (3 Ml) Ud) 3 ml INH RQ6 [facility] Last Admin: 08/20/17 20:45 Dose: Not Given Amlodipine Besylate (Norvasc) 10 mg PO DAILY [facility] Last Admin: 08/20/17 10:19 Dose: 10 mg Aspirin (Aspirin) 325 mg PO DAILY [facility] Last Admin: 08/20/17 10:19 Dose: 325 mg Azithromycin (Zithromax) 500 mg PO DAILY [facility] Last Admin: 08/20/17 10:19 Dose: 500 mg Clopidogrel Bisulfate (Plavix) 75 mg PO Q24H [facility] Last Admin: 08/20/17 19:49 Dose: Not Given Gabapentin (Neurontin) 400 mg PO BID [facility] Last Admin: 08/20/17 18:31 Dose: Not Given Heparin Sodium (Porcine) (Heparin) 5,000 units SC Q12 [facility] Last Admin: 08/19/17 22:04 Dose: 5,000 units Insulin Human Regular (Novolin R) 0 unit SC ACHS [facility] PRN Reason: Protocol Last Admin: 08/20/17 23:03 Dose: Not Given Losartan Potassium (Cozaar) 100 mg PO DAILY [facility] Last Admin: 08/20/17 10:19 Dose: 100 mg Morphine Sulfate (Morphine) 2 mg IVP Q4H PRN PRN Reason: Pain, moderate (4-7) Last Admin: 08/17/17 22:31 Dose: 2 mg Nitroglycerin (Nitrostat Sl Tab) 0.4 mg SL Q5M PRN PRN Reason: chest pain Last Admin: 08/19/17 11:39 Dose: 0.4 mg Promethazine HCl/Codeine (Phenergan/Codeine Oral Syrup) 5 ml PO Q4 PRN PRN Reason: Cough Last Admin: 08/19/17 22:04 Dose: 5 ml Rosuvastatin Calcium (Crestor) 5 mg PO HS [facility] Last Admin: 08/20/17 23:02 Dose: Not Given - Labs Labs: 08/18/17 08:19 08/18/17 08:19 PT 10.7 SECONDS (9.7-12.2) 08/17/17 16:51 INR 1.0 08/17/17 16:51 APTT 31 SECONDS (21-34) 08/17/17 16:51
[2017-08-21] MEDS: (Novolin R) Insulin Human Regular 100 units/ml vial SC SCH ×4 (08:25→21:33)
--- NOTE | 2017-08-21 08:48 | CP.PCM.PN ---
<Nikita Lynn - Last Filed: 08/21/17 08:49> Subjective - Date & Time of Evaluation Date of Evaluation: 08/21/17 Time of Evaluation: 07:15 - Subjective Subjective: Patient seen and examined at bedside in no acute distress. Patient states he has not experienced any chest pain since procedure yesterday. States that he normally experienced this chest pain every other day for the past five months but never gave it much thought. States he feels "great." Denies chest pain, shortness of breath, palpitations, abdominal pain. Objective - Vital Signs/Intake and Output Vital Signs (last 24 hours): Temp Pulse Resp BP Pulse Ox 97.5 F L 99 H 20 135/77 96 08/20/17 08:57 08/21/17 00:25 08/20/17 08:57 08/20/17 08:57 08/20/17 08:57 - Medications Medications: Current Medications Acetaminophen (Tylenol 325mg Tab) 650 mg PO Q6 PRN PRN Reason: Pain, Mild (1-3) Albuterol/Ipratropium (Duoneb 3 Mg/0.5 Mg (3 Ml) Ud) 3 ml INH RQ6 [facility] Last Admin: 08/21/17 02:04 Dose: Not Given Amlodipine Besylate (Norvasc) 10 mg PO DAILY [facility] Last Admin: 08/20/17 10:19 Dose: 10 mg Aspirin (Aspirin) 325 mg PO DAILY [facility] Last Admin: 08/20/17 10:19 Dose: 325 mg Azithromycin (Zithromax) 500 mg PO DAILY [facility] Last Admin: 08/20/17 10:19 Dose: 500 mg Clopidogrel Bisulfate (Plavix) 75 mg PO Q24H [facility] Last Admin: 08/20/17 19:49 Dose: Not Given Gabapentin (Neurontin) 400 mg PO BID [facility] Last Admin: 08/20/17 18:31 Dose: Not Given Heparin Sodium (Porcine) (Heparin) 5,000 units SC Q12 [facility] Last Admin: 08/19/17 22:04 Dose: 5,000 units Insulin Human Regular (Novolin R) 0 unit SC ACHS [facility] PRN Reason: Protocol Last Admin: 08/20/17 23:03 Dose: Not Given Losartan Potassium (Cozaar) 100 mg PO DAILY [facility] Last Admin: 08/20/17 10:19 Dose: 100 mg Metoprolol Succinate (Toprol Xl) 25 mg PO DAILY [facility] Morphine Sulfate (Morphine) 2 mg IVP Q4H PRN PRN Reason: Pain, moderate (4-7) Last Admin: 08/17/17 22:31 Dose: 2 mg Nitroglycerin (Nitrostat Sl Tab) 0.4 mg SL Q5M PRN PRN Reason: chest pain Last Admin: 08/19/17 11:39 Dose: 0.4 mg Promethazine HCl/Codeine (Phenergan/Codeine Oral Syrup) 5 ml PO Q4 PRN PRN Reason: Cough Last Admin: 08/19/17 22:04 Dose: 5 ml Rosuvastatin Calcium (Crestor) 5 mg PO HS [facility] Last Admin: 08/20/17 23:02 Dose: Not Given - Labs Labs: 08/18/17 08:19 08/18/17 08:19 PT 10.7 SECONDS (9.7-12.2) 08/17/17 16:51 INR 1.0 08/17/17 16:51 APTT 31 SECONDS (21-34) 08/17/17 16:51 - Constitutional Appears: Non-toxic, No Acute Distress - Head Exam Head Exam: ATRAUMATIC, NORMAL INSPECTION, NORMOCEPHALIC - Eye Exam Eye Exam: EOMI, Normal appearance - ENT Exam ENT Exam: Mucous Membranes Moist - Neck Exam Neck Exam: Full ROM - Respiratory Exam Respiratory Exam: Clear to Ausculation Bilateral, NORMAL BREATHING PATTERN. absent: Wheezes - Cardiovascular Exam Cardiovascular Exam: REGULAR RHYTHM, +S1, +S2 - GI/Abdominal Exam GI & Abdominal Exam: Soft, Normal Bowel Sounds - Extremities Exam Extremities Exam: Normal Inspection - Back Exam Back Exam: NORMAL INSPECTION - Neurological Exam Neurological Exam: Alert, Awake, Oriented x3 - Psychiatric Exam Psychiatric exam: Normal Affect, Normal Mood - Skin Skin Exam: Intact, Normal Color, Warm Assessment and Plan - Assessment and Plan (Free Text) Assessment: Patient is a 62 year old male with past medical history of CAD, dyslipidemia, hypertension, HIV, hepatitis C, CVA who presented to [facility] with complaints of chest discomfort, sensation of lip swelling, left 5th digit numbness, and shortness of breath. Plan: 1. Chest Pain -TnI negative x 3 -Known moderate LAD disease with physiologically non-significant FFR -Stress test revealed mild anteroapical defect. Patient has known mid LAD 50%-60 % lesion; medical management pending recurrent chest pain on maximal medical therapy -Cath performed at [facility] [place] with PCI of mid LAD -Continue with aspirin, plavix, nitroglycerin -Tachycardic; Toprol XL added back to regimen -Chest discomfort resolved, continue to monitor -Continue with guideline directed medical therapy for CAD Status: Acute 2. Hyperlipidemia - ASCVD score 46% - Continue with Rosuvastatin 5 mg; low dose high intensity statin considering Hepatitis C diagnosis Status: Chronic 3. Hypertension -Blood Pressure elevated; considering raising Losartan dosage. -Continue with Norvasc 10 mg, Losartan 100 mg Status: Chronic 4. Uncontrolled diabetes mellitus with hyperglycemia - HgA1C 10.6 -Continue with medical management Status: Acute <Arsenio Lang - Last Filed: 08/22/17 05:33> Objective - Vital Signs/Intake and Output Vital Signs (last 24 hours): Temp Pulse Resp BP Pulse Ox 98.0 F 62 20 119/69 94 L 08/21/17 23:25 08/22/17 01:21 08/21/17 23:25 08/21/17 23:25 08/21/17 23:25 Intake and Output: 08/21/17 08/22/17 18:59 06:59 Intake Total 280 700 Balance 280 700 - Medications Medications: Current Medications Acetaminophen (Tylenol 325mg Tab) 650 mg PO Q6 PRN PRN Reason: Pain, Mild (1-3) Albuterol/Ipratropium (Duoneb 3 Mg/0.5 Mg (3 Ml) Ud) 3 ml INH RQ6 [facility] Last Admin: 08/22/17 01:45 Dose: Not Given Amlodipine Besylate (Norvasc) 10 mg PO DAILY [facility] Last Admin: 08/21/17 09:32 Dose: 10 mg Aspirin (Aspirin) 325 mg PO DAILY [facility] Last Admin: 08/21/17 09:32 Dose: 325 mg Azithromycin (Zithromax) 500 mg PO DAILY [facility] Last Admin: 08/21/17 09:32 Dose: 500 mg Clopidogrel Bisulfate (Plavix) 75 mg PO Q24H [facility] Last Admin: 08/21/17 21:26 Dose: 75 mg Gabapentin (Neurontin) 400 mg PO BID [facility] Last Admin: 08/21/17 17:49 Dose: 400 mg Heparin Sodium (Porcine) (Heparin) 5,000 units SC Q12 [facility] Last Admin: 08/19/17 22:04 Dose: 5,000 units Insulin Aspart (Novolog Mix 70/30 (70/30 Units/Ml)) 21 units SC BID [facility] Last Admin: 08/21/17 17:49 Dose: 21 units Insulin Human Regular (Novolin R) 0 unit SC ACHS [facility] PRN Reason: Protocol Last Admin: 08/21/17 21:33 Dose: Not Given Losartan Potassium (Cozaar) 100 mg PO DAILY [facility] Last Admin: 08/21/17 09:32 Dose: 100 mg Metoprolol Succinate (Toprol Xl) 25 mg PO DAILY [facility] Last Admin: 08/21/17 09:32 Dose: 25 mg Morphine Sulfate (Morphine) 2 mg IVP Q4H PRN PRN Reason: Pain, moderate (4-7) Last Admin: 08/17/17 22:31 Dose: 2 mg Nitroglycerin (Nitrostat Sl Tab) 0.4 mg SL Q5M PRN PRN Reason: chest pain Last Admin: 08/19/17 11:39 Dose: 0.4 mg Promethazine HCl/Codeine (Phenergan/Codeine Oral Syrup) 5 ml PO Q4 PRN PRN Reason: Cough Last Admin: 08/21/17 21:28 Dose: 5 ml Rosuvastatin Calcium (Crestor) 5 mg PO HS [facility] Last Admin: 08/21/17 21:26 Dose: 5 mg - Labs Labs: 08/18/17 08:19 08/18/17 08:19 PT 10.7 SECONDS (9.7-12.2) 08/17/17 16:51 INR 1.0 08/17/17 16:51 APTT 31 SECONDS (21-34) 08/17/17 16:51 Assessment and Plan (1) Acute chest pain Status: Acute (2) Uncontrolled diabetes mellitus with hyperglycemia Status: Acute (3) Chest discomfort Status: Acute (4) Hyperlipidemia Status: Chronic (5) Hypertension Status: Chronic Attending/Attestation - Attestation I have personally seen and examined this patient.: Yes I have fully participated in the care of the patient.: Yes I have reviewed all pertinent clinical information, including history, physical exam and plan: Yes Notes (Text): 08/22/17 05:31 s/p PCI of mLAD feeling fine cont DAPT cont GDMT for CAD
[2017-08-21] MEDS: Metoprolol Succinate 25 mg XL Tab PO SCH (09:32)
[2017-08-21] MEDS: Promethazine/Cod 6.25mg-10mg/5ml Syr UD PO PRN ×2 (09:37→21:28)
[2017-08-21] MEDS ORDERED: (Novolin R) Insulin Human Regular 100 units/ml vial SC ONE (12:30)
--- NOTE | 2017-08-21 15:08 | CP.PCM.PN ---
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 Lang, observe for 24 hrs and discharge home tomorrow The above plan discussed with DR. Acuna and patient Objective - Vital Signs/Intake and Output Vital Signs (last 24 hours): Temp Pulse Resp BP Pulse Ox 97.5 F L 99 H 20 135/77 96 08/20/17 08:57 08/21/17 00:25 08/20/17 08:57 08/20/17 08:57 08/20/17 08:57 - Medications Medications: Current Medications Acetaminophen (Tylenol 325mg Tab) 650 mg PO Q6 PRN PRN Reason: Pain, Mild (1-3) Albuterol/Ipratropium (Duoneb 3 Mg/0.5 Mg (3 Ml) Ud) 3 ml INH RQ6 [facility] Last Admin: 08/21/17 08:23 Dose: 3 ml Amlodipine Besylate (Norvasc) 10 mg PO DAILY [facility] Last Admin: 08/21/17 09:32 Dose: 10 mg Aspirin (Aspirin) 325 mg PO DAILY [facility] Last Admin: 08/21/17 09:32 Dose: 325 mg Azithromycin (Zithromax) 500 mg PO DAILY [facility] Last Admin: 08/21/17 09:32 Dose: 500 mg Clopidogrel Bisulfate (Plavix) 75 mg PO Q24H [facility] Last Admin: 08/20/17 19:49 Dose: Not Given Gabapentin (Neurontin) 400 mg PO BID [facility] Last Admin: 08/21/17 09:32 Dose: 400 mg Heparin Sodium (Porcine) (Heparin) 5,000 units SC Q12 [facility] Last Admin: 08/19/17 22:04 Dose: 5,000 units Insulin Aspart (Novolog Mix 70/30 (70/30 Units/Ml)) 21 units SC BID [facility] Insulin Human Regular (Novolin R) 0 unit SC ACHS [facility] PRN Reason: Protocol Last Admin: 08/21/17 11:34 Dose: 6 unit Losartan Potassium (Cozaar) 100 mg PO DAILY [facility] Last Admin: 08/21/17 09:32 Dose: 100 mg Metoprolol Succinate (Toprol Xl) 25 mg PO DAILY [facility] Last Admin: 08/21/17 09:32 Dose: 25 mg Morphine Sulfate (Morphine) 2 mg IVP Q4H PRN PRN Reason: Pain, moderate (4-7) Last Admin: 08/17/17 22:31 Dose: 2 mg Nitroglycerin (Nitrostat Sl Tab) 0.4 mg SL Q5M PRN PRN Reason: chest pain Last Admin: 08/19/17 11:39 Dose: 0.4 mg Promethazine HCl/Codeine (Phenergan/Codeine Oral Syrup) 5 ml PO Q4 PRN PRN Reason: Cough Last Admin: 08/21/17 09:37 Dose: 5 ml Rosuvastatin Calcium (Crestor) 5 mg PO HS [facility] Last Admin: 08/20/17 23:02 Dose: Not Given - Labs Labs: 08/18/17 08:19 08/18/17 08:19 PT 10.7 SECONDS (9.7-12.2) 08/17/17 16:51 INR 1.0 08/17/17 16:51 APTT 31 SECONDS (21-34) 08/17/17 16:51
[2017-08-21] MEDS: (Novolog Mix 70/30) Insulin Aspart/Insulin Aspar 100 units/ml SC SCH (17:49)
[2017-08-22 01:23] VITALS: PULSE 62
[2017-08-22 01:35] VITALS: BP 119/69; TEMP 98; O2SAT 94
[2017-08-22] MEDS: Albuterol-Ipratrop 3 mg / 0.5 (3 ml) UD INH SCH ×2 (01:45→07:53)
--- NOTE | 2017-08-22 01:55 | CP.PCM.PN ---
Subjective - Date & Time of Evaluation Date of Evaluation: 08/21/17 Time of Evaluation: 20:00 Objective - Vital Signs/Intake and Output Vital Signs (last 24 hours): Temp Pulse Resp BP Pulse Ox 98.0 F 62 20 119/69 94 L 08/21/17 23:25 08/22/17 01:21 08/21/17 23:25 08/21/17 23:25 08/21/17 23:25 Intake and Output: 08/21/17 08/22/17 18:59 06:59 Intake Total 280 700 Balance 280 700 - Medications Medications: Current Medications Acetaminophen (Tylenol 325mg Tab) 650 mg PO Q6 PRN PRN Reason: Pain, Mild (1-3) Albuterol/Ipratropium (Duoneb 3 Mg/0.5 Mg (3 Ml) Ud) 3 ml INH RQ6 [facility] Last Admin: 08/22/17 01:45 Dose: Not Given Amlodipine Besylate (Norvasc) 10 mg PO DAILY [facility] Last Admin: 08/21/17 09:32 Dose: 10 mg Aspirin (Aspirin) 325 mg PO DAILY [facility] Last Admin: 08/21/17 09:32 Dose: 325 mg Azithromycin (Zithromax) 500 mg PO DAILY [facility] Last Admin: 08/21/17 09:32 Dose: 500 mg Clopidogrel Bisulfate (Plavix) 75 mg PO Q24H [facility] Last Admin: 08/21/17 21:26 Dose: 75 mg Gabapentin (Neurontin) 400 mg PO BID [facility] Last Admin: 08/21/17 17:49 Dose: 400 mg Heparin Sodium (Porcine) (Heparin) 5,000 units SC Q12 [facility] Last Admin: 08/19/17 22:04 Dose: 5,000 units Insulin Aspart (Novolog Mix 70/30 (70/30 Units/Ml)) 21 units SC BID [facility] Last Admin: 08/21/17 17:49 Dose: 21 units Insulin Human Regular (Novolin R) 0 unit SC ACHS [facility] PRN Reason: Protocol Last Admin: 08/21/17 21:33 Dose: Not Given Losartan Potassium (Cozaar) 100 mg PO DAILY [facility] Last Admin: 08/21/17 09:32 Dose: 100 mg Metoprolol Succinate (Toprol Xl) 25 mg PO DAILY [facility] Last Admin: 08/21/17 09:32 Dose: 25 mg Morphine Sulfate (Morphine) 2 mg IVP Q4H PRN PRN Reason: Pain, moderate (4-7) Last Admin: 08/17/17 22:31 Dose: 2 mg Nitroglycerin (Nitrostat Sl Tab) 0.4 mg SL Q5M PRN PRN Reason: chest pain Last Admin: 08/19/17 11:39 Dose: 0.4 mg Promethazine HCl/Codeine (Phenergan/Codeine Oral Syrup) 5 ml PO Q4 PRN PRN Reason: Cough Last Admin: 08/21/17 21:28 Dose: 5 ml Rosuvastatin Calcium (Crestor) 5 mg PO HS [facility] Last Admin: 08/21/17 21:26 Dose: 5 mg - Labs Labs: 08/18/17 08:19 08/18/17 08:19 PT 10.7 SECONDS (9.7-12.2) 08/17/17 16:51 INR 1.0 08/17/17 16:51 APTT 31 SECONDS (21-34) 08/17/17 16:51
--- NOTE | 2017-08-22 07:31 | CP.PCM.PN ---
Subjective - Date & Time of Evaluation Date of Evaluation: 08/22/17 Time of Evaluation: 07:00 - Subjective Subjective: Patient seen and examined at bedside in no acute distress without any complaints. Patient states that he woke up with a mild headache, states he normally suffers from headaches which are relieved with tylenol. Spoke with nurse, tylenol will be administered. Denies chest pain, shortness of breath, palpitations, abdominal pain, fevers, chills. Objective - Vital Signs/Intake and Output Vital Signs (last 24 hours): Temp Pulse Resp BP Pulse Ox 98.0 F 62 20 119/69 94 L 08/21/17 23:25 08/22/17 01:21 08/21/17 23:25 08/21/17 23:25 08/21/17 23:25 Intake and Output: 08/22/17 08/22/17 06:59 18:59 Intake Total 700 Balance 700 - Medications Medications: Current Medications Acetaminophen (Tylenol 325mg Tab) 650 mg PO Q6 PRN PRN Reason: Pain, Mild (1-3) Albuterol/Ipratropium (Duoneb 3 Mg/0.5 Mg (3 Ml) Ud) 3 ml INH RQ6 [facility] Last Admin: 08/22/17 01:45 Dose: Not Given Amlodipine Besylate (Norvasc) 10 mg PO DAILY [facility] Last Admin: 08/21/17 09:32 Dose: 10 mg Aspirin (Aspirin) 325 mg PO DAILY [facility] Last Admin: 08/21/17 09:32 Dose: 325 mg Azithromycin (Zithromax) 500 mg PO DAILY [facility] Last Admin: 08/21/17 09:32 Dose: 500 mg Clopidogrel Bisulfate (Plavix) 75 mg PO Q24H [facility] Last Admin: 08/21/17 21:26 Dose: 75 mg Gabapentin (Neurontin) 400 mg PO BID [facility] Last Admin: 08/21/17 17:49 Dose: 400 mg Heparin Sodium (Porcine) (Heparin) 5,000 units SC Q12 [facility] Last Admin: 08/19/17 22:04 Dose: 5,000 units Insulin Aspart (Novolog Mix 70/30 (70/30 Units/Ml)) 21 units SC BID [facility] Last Admin: 08/21/17 17:49 Dose: 21 units Insulin Human Regular (Novolin R) 0 unit SC ACHS [facility] PRN Reason: Protocol Last Admin: 08/21/17 21:33 Dose: Not Given Losartan Potassium (Cozaar) 100 mg PO DAILY [facility] Last Admin: 08/21/17 09:32 Dose: 100 mg Metoprolol Succinate (Toprol Xl) 25 mg PO DAILY [facility] Last Admin: 08/21/17 09:32 Dose: 25 mg Morphine Sulfate (Morphine) 2 mg IVP Q4H PRN PRN Reason: Pain, moderate (4-7) Last Admin: 08/17/17 22:31 Dose: 2 mg Nitroglycerin (Nitrostat Sl Tab) 0.4 mg SL Q5M PRN PRN Reason: chest pain Last Admin: 08/19/17 11:39 Dose: 0.4 mg Promethazine HCl/Codeine (Phenergan/Codeine Oral Syrup) 5 ml PO Q4 PRN PRN Reason: Cough Last Admin: 08/21/17 21:28 Dose: 5 ml Rosuvastatin Calcium (Crestor) 5 mg PO HS [facility] Last Admin: 08/21/17 21:26 Dose: 5 mg - Labs Labs: 08/18/17 08:19 08/18/17 08:19 PT 10.7 SECONDS (9.7-12.2) 08/17/17 16:51 INR 1.0 08/17/17 16:51 APTT 31 SECONDS (21-34) 08/17/17 16:51 - Constitutional Appears: No Acute Distress - Head Exam Head Exam: ATRAUMATIC, NORMAL INSPECTION, NORMOCEPHALIC - Eye Exam Eye Exam: EOMI, Normal appearance - ENT Exam ENT Exam: Mucous Membranes Moist, Normal Exam - Neck Exam Neck Exam: Normal Inspection - Respiratory Exam Respiratory Exam: Clear to Ausculation Bilateral, NORMAL BREATHING PATTERN - Cardiovascular Exam Cardiovascular Exam: REGULAR RHYTHM, +S1, +S2 - GI/Abdominal Exam GI & Abdominal Exam: Soft, Normal Bowel Sounds - Extremities Exam Extremities Exam: Full ROM, Normal Inspection - Back Exam Back Exam: NORMAL INSPECTION - Neurological Exam Neurological Exam: Alert, Awake, Oriented x3 - Psychiatric Exam Psychiatric exam: Normal Affect, Normal Mood - Skin Skin Exam: Intact, Normal Color, Warm Assessment and Plan - Assessment and Plan (Free Text) Assessment: Patient is a 62 year old male with past medical history of CAD, dyslipidemia, hypertension, HIV, hepatitis C, CVA who presented to [facility] with complaints of chest discomfort, sensation of lip swelling, left 5th digit numbness, and shortness of breath. Plan: 1. Chest Pain -TnI negative x 3 -Known moderate LAD disease with physiologically non-significant FFR -Stress test revealed mild anteroapical defect. Patient has known mid LAD 50%-60 % lesion; medical management pending recurrent chest pain on maximal medical therapy -Cath performed at [facility] with PCI of mid LAD -Continue with aspirin, plavix, nitroglycerin, Toprol XL -Chest discomfort resolved, continue to monitor -Continue with guideline directed medical therapy for CAD -Clear for discharge from cardiology standpoint, pending morning labs Status: Acute 2. Hyperlipidemia - ASCVD score 46% - Continue with Rosuvastatin 5 mg; low dose high intensity statin considering Hepatitis C diagnosis Status: Chronic 3. Hypertension -Blood Pressure elevated; considering raising Losartan dosage. -Continue with Norvasc 10 mg, Losartan 100 mg Status: Chronic 4. Uncontrolled diabetes mellitus with hyperglycemia - HgA1C 10.6 -Continue with medical management Status: Acute
[2017-08-22] MEDS: (Novolin R) Insulin Human Regular 100 units/ml vial SC SCH ×2 (08:12→12:15)
[2017-08-22 08:19] LABS: BASO # 0.1 K/uL (0.0-0.2); BASO % 0.7 % (0.0-2.0); EOS # 0.2 K/uL (0.0-0.7); EOS % 2.5 % (0.0-4.0); HEMATOCRIT 38.6 % (35.0-51.0); LYMPH # 1.7 K/uL (1.0-4.3); LYMPH % 19.7 % (20.0-40.0); MEAN CELL VOLUME 88.5 fL (80.0-94.0); MEAN CORPUSCULAR HEMOGLOBIN 30.7 pg (27.0-31.0); MEAN CORPUSCULAR HGB CONC 34.7 g/dL (33.0-37.0); MEAN PLATELET VOLUME 9.3 fL (7.2-11.7); MONO # 0.8 K/uL (0.0-0.8); MONO % 8.5 % (0.0-10.0); NRBC % 0.1 % (0.0-2.0); RED CELL DISTRIBUTION WIDTH 12.1 % (11.5-14.5); WHITE BLOOD COUNT 8.8 K/uL (4.8-10.8)
[2017-08-22 08:37] LABS: ALB/GLOB RATIO 0.8 (1.0-2.1); ALKALINE PHOSPHATASE 70 U/L (38-126); ALT/SGPT 135 U/L (21-72); AST/SGOT 60 U/L (17-59); BLOOD UREA NITROGEN 22 mg/dL (9-20); CALCIUM 8.5 mg/dl (8.6-10.4); CARBON DIOXIDE 33 mmol/L (22-30); CHLORIDE 99 mmol/L (98-107); GFR AFRICAN-AMERICAN > 60; GLUCOSE,RANDOM 188 mg/dL (75-110); MAGNESIUM 1.8 mg/dL (1.6-2.3); POTASSIUM 4.5 mmol/L (3.6-5.2); SODIUM 133 mmol/L (132-148); TOTAL PROTEIN 7.7 g/dL (6.3-8.3)
[2017-08-22] MEDS: Metoprolol Succinate 25 mg XL Tab PO SCH (10:06)
[2017-08-22] MEDS: (Novolog Mix 70/30) Insulin Aspart/Insulin Aspar 100 units/ml SC SCH (11:35)
--- NOTE | 2017-08-22 11:37 | CP.PCM.PN ---
Subjective - Date & Time of Evaluation Date of Evaluation: 08/22/17 Time of Evaluation: 10:25 - Subjective Subjective: PATIENT SEEN TODAY, DENIES ANY CHEST PAIN, SOB, PALPITATIONS, GROIN PAIN, N/V/ D NO OVERNIGHT EVENTS REPORTED BY RN s/p CARDIAC CATH at [facility] with PCI of mid LAD Objective - Vital Signs/Intake and Output Vital Signs (last 24 hours): Temp Pulse Resp BP Pulse Ox 98.0 F 62 20 119/69 94 L 08/21/17 23:25 08/22/17 01:21 08/21/17 23:25 08/21/17 23:25 08/21/17 23:25 Intake and Output: 08/22/17 08/22/17 06:59 18:59 Intake Total 700 Balance 700 - Medications Medications: Current Medications Acetaminophen (Tylenol 325mg Tab) 650 mg PO Q6 PRN PRN Reason: Pain, Mild (1-3) Last Admin: 08/22/17 07:35 Dose: 650 mg Albuterol/Ipratropium (Duoneb 3 Mg/0.5 Mg (3 Ml) Ud) 3 ml INH RQ6 [facility] Last Admin: 08/22/17 07:53 Dose: 3 ml Amlodipine Besylate (Norvasc) 10 mg PO DAILY [facility] Last Admin: 08/21/17 09:32 Dose: 10 mg Aspirin (Aspirin) 325 mg PO DAILY [facility] Last Admin: 08/21/17 09:32 Dose: 325 mg Azithromycin (Zithromax) 500 mg PO DAILY [facility] Last Admin: 08/21/17 09:32 Dose: 500 mg Clopidogrel Bisulfate (Plavix) 75 mg PO Q24H [facility] Last Admin: 08/21/17 21:26 Dose: 75 mg Gabapentin (Neurontin) 400 mg PO BID [facility] Last Admin: 08/21/17 17:49 Dose: 400 mg Heparin Sodium (Porcine) (Heparin) 5,000 units SC Q12 [facility] Last Admin: 08/19/17 22:04 Dose: 5,000 units Insulin Aspart (Novolog Mix 70/30 (70/30 Units/Ml)) 21 units SC BID [facility] Last Admin: 08/21/17 17:49 Dose: 21 units Insulin Human Regular (Novolin R) 0 unit SC ACHS [facility] PRN Reason: Protocol Last Admin: 08/22/17 08:12 Dose: 1 unit Losartan Potassium (Cozaar) 100 mg PO DAILY [facility] Last Admin: 08/21/17 09:32 Dose: 100 mg Metoprolol Succinate (Toprol Xl) 25 mg PO DAILY [facility] Last Admin: 08/21/17 09:32 Dose: 25 mg Morphine Sulfate (Morphine) 2 mg IVP Q4H PRN PRN Reason: Pain, moderate (4-7) Last Admin: 08/17/17 22:31 Dose: 2 mg Nitroglycerin (Nitrostat Sl Tab) 0.4 mg SL Q5M PRN PRN Reason: chest pain Last Admin: 08/19/17 11:39 Dose: 0.4 mg Promethazine HCl/Codeine (Phenergan/Codeine Oral Syrup) 5 ml PO Q4 PRN PRN Reason: Cough Last Admin: 08/21/17 21:28 Dose: 5 ml Rosuvastatin Calcium (Crestor) 5 mg PO HS [facility] Last Admin: 08/21/17 21:26 Dose: 5 mg - Labs Labs: 08/22/17 08:14 08/22/17 08:14 PT 10.7 SECONDS (9.7-12.2) 08/17/17 16:51 INR 1.0 08/17/17 16:51 APTT 31 SECONDS (21-34) 08/17/17 16:51 Assessment and Plan - Assessment and Plan (Free Text) Assessment: A/P 62 yr old Patient is a 62 year old male with past medical history of CAD, dyslipidemia, hypertension, admitted with complaints of chest discomfort, sensation of lip swelling, left 5th digit numbness, and shortness of breath. troponin x4 negative Stress test - + ve s/p cardiac cath at [facility] with PCI of mid LAD D/W Dr. Lang, cleared for discharge home today from cardiology stand point , and f/u with Dr. Lang office in 1-2 weeks and Continue with aspirin, plavix, nitroglycerin, Toprol XL D/W with Dr. Angeles, stable for discharge home today and f/u with PMD in 1 week Discharge plan discussed with patient who understand and agrees with plan Patient instructed to returns to ED if symptoms returns or any concerning symptoms
[2017-08-22] MEDS: Promethazine/Cod 6.25mg-10mg/5ml Syr UD PO PRN (13:10)
--- NOTE | 2017-08-23 03:16 | CP.PCM.DIS ---
Provider - Provider Date of Admission: 08/16/17 20:20 Attending physician: Yulia Angeles MD Time Spent in preparation of Discharge (in minutes): 25 Hospital Course - Lab Results Lab Results: Most Recent Lab Values WBC 8.8 K/uL (4.8-10.8) 08/22/17 08:14 RBC 4.37 Mil/uL (4.40-5.90) L 08/22/17 08:14 Hgb 13.4 g/dL (12.0-18.0) 08/22/17 08:14 Hct 38.6 % (35.0-51.0) 08/22/17 08:14 MCV 88.5 fL (80.0-94.0) 08/22/17 08:14 MCH 30.7 pg (27.0-31.0) 08/22/17 08:14 MCHC 34.7 g/dL (33.0-37.0) 08/22/17 08:14 RDW 12.1 % (11.5-14.5) 08/22/17 08:14 Plt Count 175 K/uL (130-400) 08/22/17 08:14 MPV 9.3 fL (7.2-11.7) 08/22/17 08:14 Neut % (Auto) 68.6 % (50.0-75.0) 08/22/17 08:14 Lymph % (Auto) 19.7 % (20.0-40.0) L 08/22/17 08:14 [place] % (Auto) 8.5 % (0.0-10.0) 08/22/17 08:14 Eos % (Auto) 2.5 % (0.0-4.0) 08/22/17 08:14 Baso % (Auto) 0.7 % (0.0-2.0) 08/22/17 08:14 Neut # 6.1 K/uL (1.8-7.0) 08/22/17 08:14 Lymph # 1.7 K/uL (1.0-4.3) 08/22/17 08:14 [place] # 0.8 K/uL (0.0-0.8) 08/22/17 08:14 Eos # 0.2 K/uL (0.0-0.7) 08/22/17 08:14 Baso # 0.1 K/uL (0.0-0.2) 08/22/17 08:14 PT 10.7 SECONDS (9.7-12.2) 08/17/17 16:51 INR 1.0 08/17/17 16:51 APTT 31 SECONDS (21-34) 08/17/17 16:51 Sodium 133 mmol/L (132-148) 08/22/17 08:14 Potassium 4.5 mmol/L (3.6-5.2) 08/22/17 08:14 Chloride 99 mmol/L (98-107) 08/22/17 08:14 Carbon Dioxide 33 mmol/L (22-30) H 08/22/17 08:14 Anion Gap 6 (10-20) L 08/22/17 08:14 BUN 22 mg/dL (9-20) H 08/22/17 08:14 Creatinine 0.8 mg/dL (0.8-1.5) 08/22/17 08:14 Est GFR ( Amer) > 60 08/22/17 08:14 Est GFR (Non-Af Amer) > 60 08/22/17 08:14 POC Glucose (mg/dL) 347 mg/dL (65-110) H 08/22/17 11:28 Random Glucose 188 mg/dL (75-110) H 08/22/17 08:14 Hemoglobin A1c 10.6 % (4.2-6.5) H 08/17/17 07:57 Calcium 8.5 mg/dl (8.6-10.4) L 08/22/17 08:14 Magnesium 1.8 mg/dL (1.6-2.3) 08/22/17 08:14 Total Bilirubin 1.0 mg/dL (0.2-1.3) 08/22/17 08:14 AST 60 U/L (17-59) H D 08/22/17 08:14 ALT 135 U/L (21-72) H D 08/22/17 08:14 Alkaline Phosphatase 70 U/L (38-126) 08/22/17 08:14 Lactate Dehydrogenase 377 U/L (313-618) 08/16/17 19:06 Total Creatine Kinase 23 U/L (55-170) L 08/18/17 08:19 CK-MB (Mass) 0.60 ng/mL (0.0-3.38) 08/18/17 08:19 Troponin I < 0.0120 ng/mL (0.00-0.120) 08/19/17 12:11 NT-Pro-B Natriuret Pep 361 pg/mL (0-900) 08/16/17 19:06 Total Protein 7.7 g/dL (6.3-8.3) 08/22/17 08:14 Albumin 3.5 g/dL (3.5-5.0) 08/22/17 08:14 Globulin 4.2 gm/dL (2.2-3.9) H 08/22/17 08:14 Albumin/Globulin Ratio 0.8 (1.0-2.1) L 08/22/17 08:14 Triglycerides 156 mg/dL (0-149) H D 08/18/17 08:19 Cholesterol 180 mg/dL (0-199) 08/18/17 08:19 LDL Cholesterol Direct 103 mg/dL (0-129) 08/18/17 08:19 HDL Cholesterol 37 mg/dL (30-70) 08/18/17 08:19 Free T4 1.20 ng/dL (0.78-2.19) 08/18/17 08:19 TSH 3rd Generation 0.35 mIU/L (0.46-4.68) L 08/18/17 08:19 Discharge Exam - Head Exam Head Exam: ATRAUMATIC, NORMAL INSPECTION, NORMOCEPHALIC Discharge Plan - Discharge Medications Prescriptions: Aspirin 325 mg PO DAILY #30 tab Losartan [Cozaar] 100 mg PO DAILY #30 tab amLODIPine [Norvasc] 10 mg PO DAILY #30 tab Clopidogrel [Plavix] 75 mg PO Q24H #30 tab Metoprolol Succinate [Toprol XL] 25 mg PO DAILY #30 tab - Follow Up Plan Condition: FAIR Disposition: HOME/ ROUTINE Instructions: Metoprolol (By mouth), Aspirin (By mouth), Amlodipine (By mouth) , Losartan (By mouth), Clopidogrel (By mouth), Angina (DC), Diabetes Mellitus Type 2 in Adults (DC) Additional Instructions: Please f/u with PMD in 1 week Please f/u with Dr. Lang office in 1-2 weeks - call for appointment Continue medication as per Med. Rec. Please continue aspirin and plavix for 1 year Resume metformin on Friday PLEASE [employer] MEDICATION FROM [facility] Referrals: Arsenio Lang MD [Staff Provider] -
--- NOTE | 2017-08-26 18:35 | CARD ---
APPROVED REPORT EKG Measurement Heart [id number] <Conclusion> Normal sinus rhythm Normal ECG
== END 2017-08-22 13:59 | disposition home or self-care (01) | DRG 854 ==
LOC: C.ER 17:50 → C.9E 20:20 → C.5S 20:46
PROVIDERS: ADMIT Internal Medicine; ATTEND Internal Medicine
PROC: 027034Z Dilation of Coronary Artery, One Artery with Drug-eluting Intraluminal Device, Percutaneous Approach (ICD-10-PCS; principal; 2017-08-20)
PROC: 4A023N7 Measurement of Cardiac Sampling and Pressure, Left Heart, Percutaneous Approach (ICD-10-PCS; 2017-08-20)
PROC: 4A033BC Measurement of Arterial Pressure, Coronary, Percutaneous Approach (ICD-10-PCS; 2017-08-20)
PROC: B2161ZZ Fluoroscopy of Right and Left Heart using Low Osmolar Contrast (ICD-10-PCS; 2017-08-20)
PROC: B2111ZZ Fluoroscopy of Multiple Coronary Arteries using Low Osmolar Contrast (ICD-10-PCS; 2017-08-20)
DX: I25.119 Atherosclerotic heart disease of native coronary artery with unspecified angina pectoris (principal); E11.65 Type 2 diabetes mellitus with hyperglycemia; E78.00 Pure hypercholesterolemia, unspecified; E78.5 Hyperlipidemia, unspecified; I10 Essential (primary) hypertension; I49.3 Ventricular premature depolarization; Z79.82 Long term (current) use of aspirin; F41.9 Anxiety disorder, unspecified; Z79.899 Other long term (current) drug therapy; Z86.73 Personal history of transient ischemic attack (TIA), and cerebral infarction without residual deficits; F17.210 Nicotine dependence, cigarettes, uncomplicated; Z21 Asymptomatic human immunodeficiency virus [HIV] infection status

== ENCOUNTER 2017-11-08 21:31 | Observation (INO) | payer OTHER ==
[2017-11-08 21:32] VITALS: BMI 25.2
[2017-11-08] MEDS ORDERED: Aspirin 325 mg EC Tablets PO STA (22:11)
--- NOTE | 2017-11-08 22:14 | C.PDOC ---
History Of Present Illness 62 year old male, whose past medical history includes CAD, DM, HTN, and coronary stent, who presents to the ED complaining of 3 days of intermittent substeranl chest pain. Patient describes the chest pain as pressure and notes each intermittent episodes last about 20 minutes and is non-radiating. Patient states the pain is 5 out of 10. He denies shortness of breath, abdominal pain, nausea, vomiting, or other complaints. Pt is an active smoker Chief Complaint (Nursing): Chest Pain History Per: Patient History/Exam Limitations: no limitations Onset/Duration Of Symptoms: Days (3), Intermittent Episodes Current Symptoms Are (Timing): Still Present Pain Scale Rating Of: 5 Quality: Pressure Modifying Factors: None Exacerbating Factors: None Alleviating Factors: None Past Medical History Reviewed: Historical Data, Nursing Documentation, Vital Signs Vital Signs: Last Vital Signs Temp 97.7 F 11/08/17 21:37 Pulse 76 11/09/17 00:15 Resp 14 11/09/17 00:15 BP 113/67 11/09/17 00:15 Pulse Ox 100 11/09/17 00:15 - Medical History PMH: Arthritis, CAD, Diabetes, HIV (undetectable), HTN, Hypercholesterolemia Denies: Chronic Kidney Disease Surgical History: Coronary Stent (cardiac cath with stent placement) Denies: Pacemaker - [facility] Procedures DILATION OF 1 COR ART WITH DRUG-ELUT INTRA, PERC APPROACH (08/16/17) FLUOROSCOPY OF MULT COR ART USING L OSM CONTRAST (08/16/17) FLUOROSCOPY OF RIGHT AND LEFT HEART USING L OSM CONTRAST (08/16/17) MEASURE OF CARDIAC SAMPL & PRESSURE, L HEART, PERC APPROACH (08/16/17) MEASUREMENT OF ARTERIAL PRESSURE, CORONARY, PERC APPROACH (08/16/17) ULTRASONOGRAPHY OF RIGHT AND LEFT HEART, TRANSESOPHAGEAL (09/10/16) Family History: States: Diabetes, Hypertension - Social History Hx Tobacco Use: Yes (1/2 pack daily) Hx Alcohol Use: No Hx Substance Use: No - Immunization History Hx Tetanus Toxoid Vaccination: Yes Hx Influenza Vaccination: Yes Hx Pneumococcal Vaccination: Yes Review Of Systems Constitutional: Negative for: Fever Cardiovascular: Positive for: Chest Pain (substernal) Respiratory: Negative for: Shortness of Breath Gastrointestinal: Negative for: Vomiting Genitourinary: Negative for: Dysuria Musculoskeletal: Negative for: Back Pain Skin: Negative for: Rash Neurological: Negative for: Numbness Physical Exam - Physical Exam Appears: Well, Non-toxic, No Acute Distress Skin: Normal Color, Warm, Dry Head: Atraumatic, Normacephalic Eye(s): bilateral: Normal Inspection, PERRL, EOMI Chest: No Tenderness Cardiovascular: Rhythm Regular, No Murmur Respiratory: Normal Breath Sounds, No Rales, No Rhonchi, No Wheezing Gastrointestinal/Abdominal: Normal Exam, Bowel Sounds (active), Soft, No Tenderness, No Distention, No Guarding, No Rebound Extremity: Normal ROM Neurological/Psych: Oriented x3, Normal Speech, Normal Motor, Normal Sensation ED Course And Treatment - Laboratory Results Result Diagrams: 11/08/17 22:18 11/08/17 22:18 ECG: Interpreted By Me, Viewed By Me ECG Rhythm: Sinus Rhythm Rate From EC (LAD. T-wave flattening in 3 AVF. No ectopy) O2 Sat by Pulse Oximetry: 98 (room air) Pulse Ox Interpretation: Normal Medical Decision Making Medical Decision Making: Impression: 62 y/o male with no obvious residual from prior stroke. Differential Diagnosis included but are not limited to: Plan: -- EKG -- CXR -- Labs -- Nitroglycerin and Aspirin -- Reassess and disposition Disposition - Disposition Disposition: HOSPITALIZED Disposition Time: 00:50 Condition: GOOD - Clinical Impression Clinical Impression: Chest pain, Diabetes - Scribe Statement The provider has reviewed the documentation as recorded by the Scribe Scribe Attestation: Pushpa García MD Scribe Attestation: All medical record entries made by the Scribe were at my direction and personally dictated by me. I have reviewed the chart and agree that the record accurately reflects my personal performance of the history, physical exam, medical decision making, and the department course for this patient. I have also personally directed, reviewed, and agree with the discharge instructions and disposition.
[2017-11-08 22:21] LABS: BASO % 0.5 % (0.0-2.0); EOS # 0.1 K/uL (0.0-0.7); EOS % 1.8 % (0.0-4.0); HEMOGLOBIN 13.1 g/dL (12.0-18.0); LYMPH # 1.1 K/uL (1.0-4.3); LYMPH % 23.2 % (20.0-40.0); MEAN CELL VOLUME 87.4 fL (80.0-94.0); MEAN CORPUSCULAR HEMOGLOBIN 31.1 pg (27.0-31.0); MEAN CORPUSCULAR HGB CONC 35.6 g/dL (33.0-37.0); MEAN PLATELET VOLUME 9.5 fL (7.2-11.7); MONO # 0.4 K/uL (0.0-0.8); MONO % 7.6 % (0.0-10.0); NEUT # 3.3 K/uL (1.8-7.0); NEUT % 66.9 % (50.0-75.0); NRBC % 0.1 % (0.0-2.0); RBC 4.2 Mil/uL (4.40-5.90); RED CELL DISTRIBUTION WIDTH 12.5 % (11.5-14.5); WHITE BLOOD COUNT 4.9 K/uL (4.8-10.8)
[2017-11-08 22:29] LABS: INR 0.9; PROTHROMBIN TIME 10.5 SECONDS (9.7-12.2)
[2017-11-08] MEDS ORDERED: Aspirin 325 mg EC Tablets PO ONE (22:32)
[2017-11-08 22:37] LABS: ALBUMIN 3.6 g/dL (3.5-5.0); ALT/SGPT 62 U/L (21-72); AST/SGOT 26 U/L (17-59); BLOOD UREA NITROGEN 14 mg/dL (9-20); CALCIUM 8.4 mg/dl (8.6-10.4); GFR AFRICAN-AMERICAN > 60; GFR NON-AFRICAN AMERICAN > 60
[2017-11-08] MEDS ORDERED: (Novolin R) Insulin Human Regular 100 units/ml vial IV ONE (22:37)
[2017-11-08] MEDS ORDERED: (Novolin R) Insulin Human Regular 100 units/ml vial ONE (22:49)
[2017-11-08] MEDS ORDERED: Nitroglycerin 2% Ointment Foilpak UD TOP STA (23:13)
[2017-11-09] MEDS ORDERED: Nitroglycerin 2% Ointment Foilpak UD TOP ONE (00:09)
[2017-11-09 06:07] LABS: HEMOGLOBIN 12.8 g/dL (12.0-18.0); MEAN CELL VOLUME 87.2 fL (80.0-94.0); MEAN CORPUSCULAR HEMOGLOBIN 31.5 pg (27.0-31.0); MEAN CORPUSCULAR HGB CONC 36.1 g/dL (33.0-37.0); MEAN PLATELET VOLUME 9.1 fL (7.2-11.7); RBC 4.06 Mil/uL (4.40-5.90); RED CELL DISTRIBUTION WIDTH 12.3 % (11.5-14.5); WHITE BLOOD COUNT 6.2 K/uL (4.8-10.8)
[2017-11-09 06:23] LABS: BLOOD UREA NITROGEN 19 mg/dL (9-20); CALCIUM 8.5 mg/dl (8.6-10.4); GFR AFRICAN-AMERICAN > 60; GFR NON-AFRICAN AMERICAN > 60
[2017-11-09 06:41] LABS: CK-MB 0.96 ng/mL (0.0-3.38)
[2017-11-09] MEDS: (Novolog) Insulin Aspart, Recombinant 100 u/ml 10 ml vial SC SCH ×4 (08:42→22:45)
[2017-11-09] MEDS ORDERED: (Novolog) Insulin Aspart, Recombinant 100 u/ml 10 ml vial ONE ×2 (08:47→13:07)
--- NOTE | 2017-11-09 09:11 | RAD ---
PROCEDURE: CHEST RADIOGRAPH, 1 VIEW HISTORY: chest pain COMPARISON: None available. FINDINGS: LUNGS: Clear. PLEURA: No pneumothorax or pleural fluid seen. CARDIOVASCULAR: Normal. OSSEOUS STRUCTURES: Unchanged. VISUALIZED UPPER ABDOMEN: Normal. OTHER FINDINGS: None. IMPRESSION: No active disease.
[2017-11-09] MEDS: Enoxaparin 40 mg Syringe SC SCH (09:47)
[2017-11-09] MEDS: Metoprolol Succinate 25 mg XL Tab PO SCH (09:48)
[2017-11-09] MEDS ORDERED: (Novolog Mix 70/30) Insulin Aspart/Insulin Aspar 100 units/ml SC SCH (10:00)
[2017-11-09 13:31] LABS: BARBITURATES, UR NEGATIVE (NEGATIVE); BENZODIAZEPINES, UR NEGATIVE (NEGATIVE); OPIATES, UR NEGATIVE (NEGATIVE); PHENCYCLIDINE, UR NEGATIVE (NEGATIVE)
[2017-11-09 15:30] VITALS: RESP 20
--- NOTE | 2017-11-09 22:07 | CP.PCM.HP ---
History of Present Illness - History of Present Illness History of Present Illness: Chief Complaint: Chest Pain HPI: 62 year old male, whose past medical history includes CAD, DM, HTN, and coronary stent, who presents to the ED complaining of 3 days of intermittent substeranl chest pain. Patient describes the chest pain as pressure and notes each intermittent episodes last about 20 minutes and is non-radiating. Patient states the pain is 5 out of 10. He denies shortness of breath, abdominal pain, nausea, vomiting, or other complaints. Pt is an active smoker he has stent placed on 08/20/17 in the left anterior descending artery who presents to [facility] with right facial spasm, chest pain, and associated dyspnea. Patient was brought in by ambulance and given sublingual Nitroglycerin and Aspirin in the ED. He states that he was walking outside when he experienced right facial spasm and then chest pain that he described as pressure -like with some radiation down the right arm. At baseline he reports that he is able to walk one block. He denies any fever, chills, nausea, vomiting, diarrhea , or palpitations. He reports that his symptoms have mildly improved since admission. Past Medical History: DM II, dyslipidemia, hypertension, active smoking, CAD Past Surgical History: denies Social H: current tobacco user 40 pack year history, former ETOH abuse, sober past 5 years, denies illicit drug use Family hx: Mother- "heart disease" DM Allergies: NKDA Present on Admission - Present on Admission Any Indicators Present on Admission: Yes Past Patient History - Infectious Disease Hx of Infectious Diseases: None - Past Medical History & Family History Past Medical History?: Yes - Past Social History Smoking Status: Light Smoker < 10 Cigarettes Daily - CARDIAC Hx Hypercholesterolemia: Yes Hx Hypertension: Yes Hx Pacemaker: No - PULMONARY Hx Respiratory Disorders: No - NEUROLOGICAL HX Cerebrovascular Accident: Yes Hx Paralysis: No - HEENT Hx HEENT Problems: No - RENAL Hx Chronic Kidney Disease: No - ENDOCRINE/METABOLIC Hx Endocrine Disorders: Yes Hx Diabetes Mellitus Type 2: Yes - HEMATOLOGICAL/ONCOLOGICAL Hx Human Immunodeficiency Virus (HIV): Yes (undetectable) - INTEGUMENTARY Hx Dermatological Problems: No - MUSCULOSKELETAL/RHEUMATOLOGICAL Hx Arthritis: Yes - GASTROINTESTINAL Hx Gastrointestinal Disorders: No - GENITOURINARY/GYNECOLOGICAL Hx Genitourinary Disorders: No - PSYCHIATRIC Hx Substance Use: No - SURGICAL HISTORY Hx Coronary Stent: Yes (cardiac cath with stent placement) - ANESTHESIA Hx Anesthesia: Yes Hx Anesthesia Reactions: No Hx Malignant Hyperthermia: No Meds Allergies/Adverse Reactions: Allergies Allergy/AdvReac Type Severity Reaction Status Date / Time No Known Allergies Allergy Verified 08/16/17 17:55 Physical Exam - Constitutional Appears: No Acute Distress - Head Exam Head Exam: ATRAUMATIC, NORMAL INSPECTION, NORMOCEPHALIC - Eye Exam Eye Exam: EOMI, Normal appearance, PERRL Pupil Exam: NORMAL ACCOMODATION, PERRL - Respiratory Exam Respiratory Exam: Clear to Auscultation Bilateral, NORMAL BREATHING PATTERN - Cardiovascular Exam Cardiovascular Exam: REGULAR RHYTHM Results - Vital Signs Recent Vital Signs: Last Vital Signs Temp 98 F 11/09/17 15:56 Pulse 61 11/09/17 15:56 Resp 20 11/09/17 15:56 BP 130/73 11/09/17 15:56 Pulse Ox 99 11/09/17 14:30 - Labs Result Diagrams: 11/09/17 06:00 11/09/17 06:00 Labs: Laboratory Results - last 24 hr 11/08/17 11/08/17 11/08/17 22:18 22:18 22:18 WBC 4.9 RBC 4.20 L Hgb 13.1 Hct 36.7 MCV 87.4 MCH 31.1 H MCHC 35.6 RDW 12.5 Plt Count 163 MPV 9.5 Neut % (Auto) 66.9 Lymph % (Auto) 23.2 [place] % (Auto) 7.6 Eos % (Auto) 1.8 Baso % (Auto) 0.5 Neut # (Auto) 3.3 Lymph # (Auto) 1.1 [place] # (Auto) 0.4 Eos # (Auto) 0.1 Baso # (Auto) 0.0 PT 10.5 INR 0.9 APTT 30 D-Dimer, Quantitative Sodium 134 Potassium 4.0 Chloride 96 L Carbon Dioxide 28 Anion Gap 15 BUN 14 Creatinine 1.0 Est GFR ( Amer) > 60 Est GFR (Non-Af Amer) > 60 POC Glucose (mg/dL) Random Glucose 447 H* D Calcium 8.4 L Total Bilirubin 0.8 AST 26 ALT 62 Alkaline Phosphatase 84 Total Creatine Kinase CK-MB (Mass) Troponin I Total Protein 7.1 Albumin 3.6 Globulin 3.5 Albumin/Globulin Ratio 1.0 Urine Opiates Screen Urine Methadone Screen Ur Barbiturates Screen Ur Phencyclidine Scrn Ur Amphetamines Screen U Benzodiazepines Scrn U Oth Cocaine Metabols U Cannabinoids Screen Blood Type Antibody Screen 11/08/17 11/08/17 11/09/17 22:19 22:26 00:02 WBC RBC Hgb Hct MCV MCH MCHC RDW Plt Count MPV Neut % (Auto) Lymph % (Auto) [place] % (Auto) Eos % (Auto) Baso % (Auto) Neut # (Auto) Lymph # (Auto) [place] # (Auto) Eos # (Auto) Baso # (Auto) PT INR APTT D-Dimer, Quantitative Sodium Potassium Chloride Carbon Dioxide Anion Gap BUN Creatinine Est GFR ( Amer) Est GFR (Non-Af Amer) POC Glucose (mg/dL) 154 H Random Glucose Calcium Total Bilirubin AST ALT Alkaline Phosphatase Total Creatine Kinase CK-MB (Mass) Troponin I < 0.0120 Total Protein Albumin Globulin Albumin/Globulin Ratio Urine Opiates Screen Urine Methadone Screen Ur Barbiturates Screen Ur Phencyclidine Scrn Ur Amphetamines Screen U Benzodiazepines Scrn U Oth Cocaine Metabols U Cannabinoids Screen Blood Type O POSITIVE Antibody Screen Negative 11/09/17 11/09/17 11/09/17 06:00 06:00 06:15 WBC 6.2 RBC 4.06 L Hgb 12.8 Hct 35.4 MCV 87.2 MCH 31.5 H MCHC 36.1 RDW 12.3 Plt Count 157 MPV 9.1 Neut % (Auto) Lymph % (Auto) [place] % (Auto) Eos % (Auto) Baso % (Auto) Neut # (Auto) Lymph # (Auto) [place] # (Auto) Eos # (Auto) Baso # (Auto) PT INR APTT D-Dimer, Quantitative Sodium 136 Potassium 4.0 Chloride 99 Carbon Dioxide 28 Anion Gap 12 BUN 19 Creatinine 0.7 L Est GFR ( Amer) > 60 Est GFR (Non-Af Amer) > 60 POC Glucose (mg/dL) Random Glucose 233 H Calcium 8.5 L Total Bilirubin AST ALT Alkaline Phosphatase Total Creatine Kinase 40 L CK-MB (Mass) 0.96 Troponin I < 0.0120 Total Protein Albumin Globulin Albumin/Globulin Ratio Urine Opiates Screen Urine Methadone Screen Ur Barbiturates Screen Ur Phencyclidine Scrn Ur Amphetamines Screen U Benzodiazepines Scrn U Oth Cocaine Metabols U Cannabinoids Screen Blood Type Antibody Screen 11/09/17 11/09/17 11/09/17 08:41 12:06 12:09 WBC RBC Hgb Hct MCV MCH MCHC RDW Plt Count MPV Neut % (Auto) Lymph % (Auto) [place] % (Auto) Eos % (Auto) Baso % (Auto) Neut # (Auto) Lymph # (Auto) [place] # (Auto) Eos # (Auto) Baso # (Auto) PT INR APTT D-Dimer, Quantitative Sodium Potassium Chloride Carbon Dioxide Anion Gap BUN Creatinine Est GFR ( Amer) Est GFR (Non-Af Amer) POC Glucose (mg/dL) 277 H 341 H Random Glucose Calcium Total Bilirubin AST ALT Alkaline Phosphatase Total Creatine Kinase CK-MB (Mass) Troponin I < 0.0120 Total Protein Albumin Globulin Albumin/Globulin Ratio Urine Opiates Screen Urine Methadone Screen Ur Barbiturates Screen Ur Phencyclidine Scrn Ur Amphetamines Screen U Benzodiazepines Scrn U Oth Cocaine Metabols U Cannabinoids Screen Blood Type Antibody Screen 11/09/17 11/09/17 11/09/17 13:02 13:02 17:33 WBC RBC Hgb Hct MCV MCH MCHC RDW Plt Count MPV Neut % (Auto) Lymph % (Auto) [place] % (Auto) Eos % (Auto) Baso % (Auto) Neut # (Auto) Lymph # (Auto) [place] # (Auto) Eos # (Auto) Baso # (Auto) PT INR APTT D-Dimer, Quantitative < 200 Sodium Potassium Chloride Carbon Dioxide Anion Gap BUN Creatinine Est GFR ( Amer) Est GFR (Non-Af Amer) POC Glucose (mg/dL) 163 H Random Glucose Calcium Total Bilirubin AST ALT Alkaline Phosphatase Total Creatine Kinase CK-MB (Mass) Troponin I Total Protein Albumin Globulin Albumin/Globulin Ratio Urine Opiates Screen Negative Urine Methadone Screen Negative Ur Barbiturates Screen Negative Ur Phencyclidine Scrn Negative Ur Amphetamines Screen Negative U Benzodiazepines Scrn Negative U Oth Cocaine Metabols Negative U Cannabinoids Screen Negative Blood Type Antibody Screen 11/09/17 21:38 WBC RBC Hgb Hct MCV MCH MCHC RDW Plt Count MPV Neut % (Auto) Lymph % (Auto) [place] % (Auto) Eos % (Auto) Baso % (Auto) Neut # (Auto) Lymph # (Auto) [place] # (Auto) Eos # (Auto) Baso # (Auto) PT INR APTT D-Dimer, Quantitative Sodium Potassium Chloride Carbon Dioxide Anion Gap BUN Creatinine Est GFR ( Amer) Est GFR (Non-Af Amer) POC Glucose (mg/dL) 269 H Random Glucose Calcium Total Bilirubin AST ALT Alkaline Phosphatase Total Creatine Kinase CK-MB (Mass) Troponin I Total Protein Albumin Globulin Albumin/Globulin Ratio Urine Opiates Screen Urine Methadone Screen Ur Barbiturates Screen Ur Phencyclidine Scrn Ur Amphetamines Screen U Benzodiazepines Scrn U Oth Cocaine Metabols U Cannabinoids Screen Blood Type Antibody Screen Assessment & Plan (1) Chest pain Status: Acute (2) Diabetes Status: Chronic (3) Hyperlipidemia Status: Chronic (4) Hypertension Status: Chronic
--- NOTE | 2017-11-09 23:50 | CON ---
DATE: CARDIOLOGY CONSULTATION REASON FOR CONSULTATION: Chest pain. HISTORY OF PRESENT ILLNESS: The patient is 62 years old male with history of hypertension, diabetes mellitus, coronary artery disease, status post coronary stenting few months ago. The patient states he is complaint with his Plavix but he cannot take aspirin because of abdominal side effects. The patient was 1 pack smoker a day, stopped briefly after his coronary stent but went back to smoking, admitted because of retrosternal chest pain, that is tightness in nature, nonradiating. The patient denies any associated diaphoresis. SOCIAL HISTORY: Patient is a smoker. MEDICATIONS: Cozaar 100 mg once a day, metformin 500 mg twice a day, Lovenox 40 mg subcutaneously once a day, Neurontin 400 mg twice a day, Norvasc 10 mg once a day, Plavix 75 mg once a day, Toprol XL 25 mg once a day. REVIEW OF SYSTEMS: No nausea or vomiting. No fever or chills. PHYSICAL EXAMINATION: GENERAL: The patient is a middle-aged male who does not appear to be in any distress. VITAL SIGNS: Blood pressure 164/80, heart rate is 78, temperature is 98, respirations 16. HEENT: Normocephalic. NECK: No JVD. CHEST: Clear. HEART: S1 and S2, regular. EXTREMITIES: No edema. LABORATORY DATA: SMA-7 is within normal limits except for glucose 233 and creatinine 0.7. Two sets of troponins are negative. Admitting glucose was 447. Hemoglobin, hematocrit, white count, and platelet count are within normal limits. EKG revealed sinus rhythm with nonspecific ST-T wave changes. On 08/22/2017, i.e., less than 3 months ago, patient underwent successful stenting to the mid LAD with deployment of 2.75 x 3 mm drug eluting stent after he had a positive Myoview stress test. The procedure was performed at [facility]. Echocardiogram study in July of last year revealed ejection fraction estimated at 25%. The EF in the cardiac catheterization in August was reported to be normal. ASSESSMENT: 1. Chest pain, myocardial function ruled out. 2. Severe underlying chronic obstructive lung disease. 3. Uncontrolled diabetes mellitus. RECOMMENDATIONS: Continue Cozaar 100 mg daily, Lovenox 20 mg subcutaneously twice a day, increase Plavix to 150 mg daily, and due to the fact that the patient does not tolerate aspirin, and he had recent drug eluting stent, continue Toprol 25 mg once a day. Obtain an echocardiogram and urine for drug screen as well as serum D-dimer. Benjie Lopez MD
[2017-11-10 01:11] LABS: CK-MB 0.75 ng/mL (0.0-3.38)
[2017-11-10] MEDS: (Novolog) Insulin Aspart, Recombinant 100 u/ml 10 ml vial SC SCH ×4 (08:18→21:51)
[2017-11-10] MEDS: Enoxaparin 40 mg Syringe SC SCH (09:56)
[2017-11-10] MEDS: Metoprolol Succinate 25 mg XL Tab PO SCH (09:56)
[2017-11-10] MEDS ORDERED: Pneumococcal 23-Valent Vaccine IM ONE (10:00)
[2017-11-10] MEDS ORDERED: Influenza Vaccine 60 mcg/0.5 mL SYR (4YR UP) IM ONE (10:00)
--- NOTE | 2017-11-10 16:50 | CT ---
PROCEDURE: CT HEAD WITHOUT CONTRAST. HISTORY: c/o numbness left arm COMPARISON: Noncontrast head CT performed 02/25/17 TECHNIQUE: Axial computed tomography images were obtained through the head/brain without intravenous contrast. Radiation dose: Total exam DLP = 1152.54 mGy-cm. This CT exam was performed using one or more of the following dose reduction techniques: Automated exposure control, adjustment of the mA and/or kV according to patient size, and/or use of iterative reconstruction technique. FINDINGS: HEMORRHAGE: No intracranial hemorrhage. BRAIN: Diffuse atrophy with prominence of the ventricles and sulci noted. No mass effect or edema. Scattered white matter hypodensities, which are nonspecific, but often seen with chronic microvascular ischemic disease. Please note that MRI with diffusion imaging is more sensitive in the detection of acute ischemic event. VENTRICLES: No hydrocephalus. CALVARIUM: Unremarkable. PARANASAL SINUSES: Unremarkable as visualized. No significant inflammatory changes. MASTOID AIR CELLS: Unremarkable as visualized. No inflammatory changes. OTHER FINDINGS: None. IMPRESSION: Nonspecific white matter changes. Please note that MRI with diffusion imaging is more sensitive in the detection of acute ischemic event. Generalized volume loss.
[2017-11-10] MEDS: (Novolog Mix 70/30) Insulin Aspart/Insulin Aspar 100 units/ml SC SCH (17:21)
--- NOTE | 2017-11-10 18:21 | CP.PCM.CON ---
History of Present Illness - History of Present Illness History of Present Illness: 62 year old male with a past medical history of DM II, dyslipidemia, hypertension, active smoking, CAD with ROLAND stent placed on 08/20/17 in the left anterior descending artery who presents to [facility] with right facial spasm, chest pain, and associated dyspnea. Patient was brought in by ambulance and given sublingual Nitroglycerin and Aspirin in the ED. He states that he was walking outside when he experienced right facial spasm and then chest pain that he described as pressure-like with some radiation down the right arm. At baseline he reports that he is able to walk one block. He denies any fever, chills, nausea, vomiting, diarrhea, or palpitations. He reports that his symptoms have mildly improved since admission. Past Medical History: DM II, dyslipidemia, hypertension, active smoking, CAD Past Surgical History: denies Social H: current tobacco user 40 pack year history, former ETOH abuse, sober past 5 years, denies illicit drug use Family hx: Mother- "heart disease" DM Allergies: NKDA 12 point ROS negative except indicated in HPI. Review of Systems - Hematologic/Lymphatic Additional comments: 12 point ROS negative except as indicated in HPI Past Patient History - Infectious Disease Hx of Infectious Diseases: None - Past Medical History & Family History Past Medical History?: Yes - Past Social History Smoking Status: Light Smoker < 10 Cigarettes Daily - CARDIAC Hx Hypercholesterolemia: Yes Hx Hypertension: Yes Hx Pacemaker: No - PULMONARY Hx Respiratory Disorders: No - NEUROLOGICAL HX Cerebrovascular Accident: Yes Hx Paralysis: No - HEENT Hx HEENT Problems: No - RENAL Hx Chronic Kidney Disease: No - ENDOCRINE/METABOLIC Hx Endocrine Disorders: Yes Hx Diabetes Mellitus Type 2: Yes - HEMATOLOGICAL/ONCOLOGICAL Hx Human Immunodeficiency Virus (HIV): Yes (undetectable) - INTEGUMENTARY Hx Dermatological Problems: No - MUSCULOSKELETAL/RHEUMATOLOGICAL Hx Arthritis: Yes - GASTROINTESTINAL Hx Gastrointestinal Disorders: No - GENITOURINARY/GYNECOLOGICAL Hx Genitourinary Disorders: No - PSYCHIATRIC Hx Substance Use: No - SURGICAL HISTORY Hx Coronary Stent: Yes (cardiac cath with stent placement) - ANESTHESIA Hx Anesthesia: Yes Hx Anesthesia Reactions: No Hx Malignant Hyperthermia: No Meds Allergies/Adverse Reactions: Allergies Allergy/AdvReac Type Severity Reaction Status Date / Time No Known Allergies Allergy Verified 08/16/17 17:55 - Medications Medications: Current Medications Amlodipine Besylate (Norvasc) 10 mg PO DAILY [facility] Clopidogrel Bisulfate (Plavix) 75 mg PO BID [facility] Last Admin: 11/10/17 17:21 Dose: 75 mg Enoxaparin Sodium (Lovenox) 40 mg SC DAILY [facility] Last Admin: 11/10/17 09:56 Dose: 40 mg Famotidine (Pepcid) 20 mg PO BID [facility] Last Admin: 11/10/17 17:21 Dose: 20 mg Gabapentin (Neurontin) 400 mg PO BID [facility] Last Admin: 11/10/17 17:21 Dose: 400 mg Insulin Aspart (Novolog) 0 unit SC [facility] PRN Reason: Protocol Last Admin: 11/10/17 17:22 Dose: 2 unit Insulin Aspart (Novolog Mix 70/30 (70/30 Units/Ml)) [facility] Last Admin: 11/10/17 17:21 Dose: 20 units Losartan Potassium (Cozaar) 100 mg PO DAILY [facility] Last Admin: 11/10/17 09:56 Dose: 100 mg Metformin HCl (Glucophage) 500 mg PO BID [facility] Last Admin: 11/10/17 17:21 Dose: 500 mg Metoprolol Succinate (Toprol Xl) 25 mg PO DAILY [facility] Last Admin: 11/10/17 09:56 Dose: 25 mg Physical Exam - Constitutional Appears: Non-toxic, No Acute Distress - Head Exam Head Exam: ATRAUMATIC, NORMOCEPHALIC - Eye Exam Additional comments: right lid lag - ENT Exam ENT Exam: Mucous Membranes Moist - Neck Exam Additional comments: JVD noted - Respiratory Exam Respiratory Exam: Clear to Auscultation Bilateral, NORMAL BREATHING PATTERN. absent: Accessory Muscle Use, Rales - Cardiovascular Exam Cardiovascular Exam: REGULAR RHYTHM, +S1, +S2 - GI/Abdominal Exam GI & Abdominal Exam: Soft. absent: Tenderness - Extremities Exam Extremities exam: Positive for: normal inspection. Negative for: pedal edema - Neurological Exam Neurological exam: Alert, Oriented x3 - Psychiatric Exam Psychiatric exam: Normal Affect, Normal Mood - Skin Skin Exam: Dry, Intact, Normal Color, Warm Results - Vital Signs Recent Vital Signs: Last Vital Signs Temp 97.5 F L 11/10/17 15:00 Pulse 59 L 11/10/17 15:00 Resp 20 11/10/17 15:00 BP 136/75 11/10/17 15:00 Pulse Ox 97 11/10/17 15:00 - Labs Result Diagrams: 11/09/17 06:00 11/09/17 06:00 Labs: Laboratory Results - last 24 hr 11/09/17 11/10/17 11/10/17 21:38 00:43 06:20 POC Glucose (mg/dL) 269 H 241 H Total Creatine Kinase 27 L CK-MB (Mass) 0.75 Troponin I < 0.0120 11/10/17 11/10/17 12:17 16:17 POC Glucose (mg/dL) 269 H 235 H Total Creatine Kinase CK-MB (Mass) Troponin I Assessment & Plan - Assessment and Plan (Free Text) Assessment: Patient is a 62 year old male with a past medical history of DM II, dyslipidemia, hypertension, active smoking, CAD with ROLAND stent placed on in the left anterior descending artery who was admitted for evaluation and treatment of right facial spasm, chest pain, and associated dyspnea. Plan: Chest Pain - ACS ruled out, troponins less than 0.0120 x 4 - EKG reviewed and appreciated- NSR, HR 90bpm, QTc- 445ms, no ST T wave changes - previous echocardiogram- EF 45%, right ventricle mildly dilated - previous cath 08/19/2017- stenting of mid LAD ffr 0.73 - continue patient on plavix, toprol - start aspirin and high intensity statin Patient case will be discussed with attending physician, Dr. Lang. Further recommendations per Dr. Lang. - Date & Time Date: 11/10/17 Time: 19:04
--- NOTE | 2017-11-10 23:37 | CP.PCM.PN ---
Subjective - Date & Time of Evaluation Date of Evaluation: 11/10/17 Time of Evaluation: 19:00 - Subjective Subjective: Pt seen and examined, cardiology consulted further care of plan according to cardiology. pt is in no distress Objective - Vital Signs/Intake and Output Vital Signs (last 24 hours): Temp Pulse Resp BP Pulse Ox 97.5 F L 59 L 20 136/75 97 11/10/17 15:00 11/10/17 15:00 11/10/17 15:00 11/10/17 15:00 11/10/17 15:00 - Medications Medications: Current Medications Amlodipine Besylate (Norvasc) 10 mg PO DAILY [facility] Aspirin (Aspirin Chewable) 81 mg PO DAILY [facility] Clopidogrel Bisulfate (Plavix) 75 mg PO BID [facility] Last Admin: 11/10/17 17:21 Dose: 75 mg Enoxaparin Sodium (Lovenox) 40 mg SC DAILY [facility] Last Admin: 11/10/17 09:56 Dose: 40 mg Famotidine (Pepcid) 20 mg PO BID [facility] Last Admin: 11/10/17 17:21 Dose: 20 mg Gabapentin (Neurontin) 400 mg PO BID [facility] Last Admin: 11/10/17 17:21 Dose: 400 mg Insulin Aspart (Novolog) 0 unit SC [facility] PRN Reason: Protocol Last Admin: 11/10/17 21:51 Dose: Not Given Insulin Aspart (Novolog Mix 70/30 (70/30 Units/Ml)) 20 units SC [facility] Last Admin: 11/10/17 17:21 Dose: 20 units Losartan Potassium (Cozaar) 100 mg PO DAILY [facility] Last Admin: 11/10/17 09:56 Dose: 100 mg Metoprolol Succinate (Toprol Xl) 25 mg PO DAILY [facility] Last Admin: 11/10/17 09:56 Dose: 25 mg Rosuvastatin Calcium (Crestor) 40 mg PO HS [facility] Last Admin: 11/10/17 21:50 Dose: 40 mg - Labs Labs: 11/09/17 06:00 11/09/17 06:00 PT 10.5 SECONDS (9.7-12.2) 11/08/17 22:18 INR 0.9 11/08/17 22:18 APTT 30 SECONDS (21-34) 11/08/17 22:18 - Constitutional Appears: No Acute Distress - Head Exam Head Exam: ATRAUMATIC, NORMAL INSPECTION, NORMOCEPHALIC - Eye Exam Eye Exam: EOMI, Normal appearance, PERRL Pupil Exam: NORMAL ACCOMODATION, PERRL - Respiratory Exam Respiratory Exam: Decreased Breath Sounds, Rales, Rhonchi - Cardiovascular Exam Cardiovascular Exam: REGULAR RHYTHM, +S1, +S2. absent: Murmur - GI/Abdominal Exam GI & Abdominal Exam: Soft, Normal Bowel Sounds. absent: Tenderness Assessment and Plan (1) Chest pain Assessment & Plan: Assessment: Patient is a 62 year old male with a past medical history of DM II, dyslipidemia, hypertension, active smoking, CAD with ROLAND stent placed on in the left anterior descending artery who was admitted for evaluation and treatment of right facial spasm, chest pain, and associated dyspnea. Plan: Chest Pain - ACS ruled out, troponins less than 0.0120 x 4 - EKG reviewed and appreciated- NSR, HR 90bpm, QTc- 445ms, no ST T wave changes - previous echocardiogram- EF 45%, right ventricle mildly dilated - previous cath 08/19/2017- stenting of mid LAD ffr 0.73 - continue patient on plavix, toprol - start aspirin and high intensity statin Status: Acute (2) Diabetes Status: Chronic (3) Hypertension Status: Chronic
[2017-11-11 08:09] VITALS: BP 127/64; PULSE 61; TEMP 97.9; O2SAT 100
[2017-11-11] MEDS: (Novolog) Insulin Aspart, Recombinant 100 u/ml 10 ml vial SC SCH ×2 (08:25→12:26)
[2017-11-11] MEDS: (Novolog Mix 70/30) Insulin Aspart/Insulin Aspar 100 units/ml SC SCH (08:26)
--- NOTE | 2017-11-11 09:29 | CP.PCM.PN ---
Subjective - Date & Time of Evaluation Date of Evaluation: 11/11/17 Time of Evaluation: 07:30 - Subjective Subjective: Cardiology Progress Note for Dr. Lang Patient seen and examined at bedside. Patient reports chest pain is still presents but states he is more concerned about a non-productive cough that he has had for the past week or so, associated chills, and congestion. Otherwise, patient denies any acute complaints at this time. Nurse reports no events overnight. Objective - Vital Signs/Intake and Output Vital Signs (last 24 hours): Temp Pulse Resp BP Pulse Ox 97.9 F 61 20 127/64 100 11/11/17 08:08 11/11/17 08:08 11/11/17 08:08 11/11/17 08:08 11/11/17 08:08 Intake and Output: 11/11/17 11/11/17 06:59 18:59 Intake Total 240 Balance 240 - Medications Medications: Current Medications Amlodipine Besylate (Norvasc) 10 mg PO DAILY [facility] Aspirin (Aspirin Chewable) 81 mg PO DAILY [facility] Clopidogrel Bisulfate (Plavix) 75 mg PO DAILY [facility] Enoxaparin Sodium (Lovenox) 40 mg SC DAILY [facility] Last Admin: 11/10/17 09:56 Dose: 40 mg Famotidine (Pepcid) 20 mg PO BID [facility] Last Admin: 11/10/17 17:21 Dose: 20 mg Gabapentin (Neurontin) 400 mg PO BID [facility] Last Admin: 11/10/17 17:21 Dose: 400 mg Insulin Aspart (Novolog) 0 unit SC ACHS [facility] PRN Reason: Protocol Last Admin: 11/11/17 08:25 Dose: 4 unit Insulin Aspart (Novolog Mix 70/30 (70/30 Units/Ml)) 20 units SC BIDAC [facility] Last Admin: 11/11/17 08:26 Dose: 20 units Losartan Potassium (Cozaar) 100 mg PO DAILY [facility] Last Admin: 11/10/17 09:56 Dose: 100 mg Metoprolol Succinate (Toprol Xl) 25 mg PO DAILY [facility] Last Admin: 11/10/17 09:56 Dose: 25 mg Rosuvastatin Calcium (Crestor) 40 mg PO HS [facility] Last Admin: 11/10/17 21:50 Dose: 40 mg - Labs Labs: 11/09/17 06:00 11/09/17 06:00 PT 10.5 SECONDS (9.7-12.2) 11/08/17 22:18 INR 0.9 11/08/17 22:18 APTT 30 SECONDS (21-34) 11/08/17 22:18 - Constitutional Appears: Well, Non-toxic - Head Exam Head Exam: ATRAUMATIC, NORMOCEPHALIC - Eye Exam Additional comments: right lid lag noted - ENT Exam ENT Exam: Mucous Membranes Moist - Respiratory Exam Respiratory Exam: Clear to Ausculation Bilateral, NORMAL BREATHING PATTERN. absent: Accessory Muscle Use - Cardiovascular Exam Cardiovascular Exam: RRR, +S1, +S2 - Extremities Exam Extremities Exam: Normal Capillary Refill, Normal Inspection - Neurological Exam Neurological Exam: Alert, Awake, Oriented x3 - Psychiatric Exam Psychiatric exam: Anxious - Skin Skin Exam: Dry, Intact, Normal Color, Warm Assessment and Plan - Assessment and Plan (Free Text) Assessment: Patient is a 62 year old male with a past medical history of DM II, HIV , HCV, dyslipidemia, hypertension, active smoking, CAD with ROLAND stent placed on 08/20/17 in the left anterior descending artery who presented to [facility] via ambulance for right facial spasm, chest pain, and associated dyspnea. Plan: Chest pain, non-cardiac - Continue with current medication - Started patient on Crestor 40 HS, aspirin 81 mg PO daily, and changed Plavix to 75 mg PO daily - Patient is stable for discharge from a cardiac standpoint.
[2017-11-11] MEDS: Metoprolol Succinate 25 mg XL Tab PO SCH (10:13)
[2017-11-11] MEDS: Enoxaparin 40 mg Syringe SC SCH (10:13)
[2017-11-11 11:27] LABS: HEMOGLOBIN 12.8 g/dL (12.0-18.0); MEAN CELL VOLUME 87.8 fL (80.0-94.0); MEAN CORPUSCULAR HEMOGLOBIN 31.5 pg (27.0-31.0); MEAN CORPUSCULAR HGB CONC 35.9 g/dL (33.0-37.0); MEAN PLATELET VOLUME 9.7 fL (7.2-11.7); RBC 4.05 Mil/uL (4.40-5.90); RED CELL DISTRIBUTION WIDTH 12.3 % (11.5-14.5); WHITE BLOOD COUNT 5.8 K/uL (4.8-10.8)
[2017-11-11 11:43] LABS: ALB/GLOB RATIO 0.9 (1.0-2.1); ALBUMIN 3.2 g/dL (3.5-5.0); ALT/SGPT 56 U/L (21-72); AST/SGOT 29 U/L (17-59); BLOOD UREA NITROGEN 22 mg/dL (9-20); CALCIUM 9.6 mg/dl (8.6-10.4); GFR AFRICAN-AMERICAN > 60; GFR NON-AFRICAN AMERICAN > 60
--- NOTE | 2017-11-11 16:23 | CP.PCM.PN ---
Subjective - Date & Time of Evaluation Date of Evaluation: 11/11/17 Time of Evaluation: 11:20 - Subjective Subjective: Patient seen and examined today , denies any chest pain, sob , dizziness, palpitations, headache, Objective - Vital Signs/Intake and Output Vital Signs (last 24 hours): Temp Pulse Resp BP Pulse Ox 97.9 F 61 20 127/64 100 11/11/17 08:08 11/11/17 08:08 11/11/17 08:08 11/11/17 08:08 11/11/17 08:08 Intake and Output: 11/11/17 11/11/17 06:59 18:59 Intake Total 240 600 Balance 240 600 - Labs Labs: 11/11/17 11:18 11/11/17 11:18 PT 10.5 SECONDS (9.7-12.2) 11/08/17 22:18 INR 0.9 11/08/17 22:18 APTT 30 SECONDS (21-34) 11/08/17 22:18 Assessment and Plan - Assessment and Plan (Free Text) Assessment: A/P 62 year old male, with past medical history of CAD, s/p stent , DM, HTN, admitted with chest pain troponin x 3 - negative CT- head - negative Seen by Dr. Lang today, cleared for discharge home from cardiology standpoint d/w Dr. Gordillo , stable for discharge home today an df/u with PMD and Dr. Lang Discharge plan discussed with patient who understands and agrees with plan Patient instructed to returns to ED if symptoms returns.
--- NOTE | 2017-11-11 22:30 | CARD ---
APPROVED REPORT EXAM: Two-dimensional and M-mode echocardiogram with Doppler and color Doppler. Other Information Quality : GoodRhythm : INDICATION Cardiac Disease: CAD Chest Pain HIV (+) RISK FACTORS Hypertension Diabetes 2D DIMENSIONS IVSd0.9 (0.7-1.1cm)LVDd5.7 (3.9-5.9cm) PWd1.0 (0.7-1.1cm)LVDs4.1 (2.5-4.0cm) FS (%) 27.8 %LVEF (%)53.2 (>50%) M-Mode DIMENSIONS Left Atrium (MM)3.78 (2.5-4.0cm)Aortic Root4.55 (2.2-3.7cm) Aortic Cusp Exc.2.41 (1.5-2.0cm) Mitral Valve MV E Ycqszaln69.4cm/sMV A Blmqggxu415.5cm/sE/A ratio0.6 TDI E/Lateral E'0.0E/Medial E'0.0 Tricuspid Valve TR Peak Vjhtcegs582bl/sTR Peak Gr.[id number] LEFT VENTRICLE The left ventricle is normal size. There is normal left ventricular wall thickness. Left ventricle systolic function is normal. The Ejection Fraction is 50-55%. There is normal LV segmental wall motion. Tissue Doppler imaging reveals abnormal left ventricular diastolic dysfunction. No left ventricle thrombus noted on this study. RIGHT VENTRICLE The right ventricle is normal size. There is normal right ventricular wall thickness. The right ventricular systolic function is normal. ATRIA The left atrium size is normal. The right atrium size is normal. The interatrial septum is intact with no evidence for an atrial septal defect. AORTIC VALVE The aortic valve is normal in structure. There is mild aortic regurgitation. There is no aortic valvular stenosis. There is no aortic valvular vegetation. MITRAL VALVE The mitral valve is normal in structure. There is no evidence of mitral valve prolapse. There is no mitral valve stenosis. There is no mitral valve regurgitation noted. TRICUSPID VALVE The tricuspid valve is normal in structure. There is mild tricuspid regurgitation. Right ventricular systolic pressure is estimated at less than 30 mmHg. There is no pulmonary hypertension. PULMONIC VALVE The pulmonic valve is not well visualized. There is mild pulmonic valvular regurgitation. GREAT VESSELS The aortic root is mildly enlarged. PERICARDIAL EFFUSION There is no pericardial effusion. <Conclusion> Left ventricle systolic function is normal. The Ejection Fraction is 50-55%. Diastolic dysfunction. There is mild aortic regurgitation. There is no mitral valve regurgitation noted. There is mild tricuspid regurgitation. There is no pulmonary hypertension. There is mild pulmonic valvular regurgitation.
--- NOTE | 2017-11-11 23:12 | CP.PCM.DIS ---
Provider - Provider Date of Admission: 11/08/17 23:24 Attending physician: Esau Gordillo MD Diagnosis - Discharge Diagnosis (1) Chest pain Status: Acute (2) Diabetes Status: Chronic (3) Hypertension Status: Chronic Hospital Course - Lab Results Lab Results: Most Recent Lab Values WBC 5.8 K/uL (4.8-10.8) 11/11/17 11:18 RBC 4.05 Mil/uL (4.40-5.90) L 11/11/17 11:18 Hgb 12.8 g/dL (12.0-18.0) 11/11/17 11:18 Hct 35.5 % (35.0-51.0) 11/11/17 11:18 MCV 87.8 fL (80.0-94.0) 11/11/17 11:18 MCH 31.5 pg (27.0-31.0) H 11/11/17 11:18 MCHC 35.9 g/dL (33.0-37.0) 11/11/17 11:18 RDW 12.3 % (11.5-14.5) 11/11/17 11:18 Plt Count 165 K/uL (130-400) 11/11/17 11:18 MPV 9.7 fL (7.2-11.7) 11/11/17 11:18 Neut % (Auto) 66.9 % (50.0-75.0) 11/08/17 22:18 Lymph % (Auto) 23.2 % (20.0-40.0) 11/08/17 22:18 Hill % (Auto) 7.6 % (0.0-10.0) 11/08/17 22:18 Eos % (Auto) 1.8 % (0.0-4.0) 11/08/17 22:18 Baso % (Auto) 0.5 % (0.0-2.0) 11/08/17:18 Neut # (Auto) 3.3 K/uL (1.8-7.0) 11/08/17 22:18 Lymph # (Auto) 1.1 K/uL (1.0-4.3) 11/08/17 22:18 Hill # (Auto) 0.4 K/uL (0.0-0.8) 11/08/17 22:18 Eos # (Auto) 0.1 K/uL (0.0-0.7) 11/08/17 22:18 Baso # (Auto) 0.0 K/uL (0.0-0.2) 11/08/17 22:18 PT 10.5 SECONDS (9.7-12.2) 11/08/17 22:18 INR 0.9 11/08/17 22:18 APTT 30 SECONDS (21-34) 11/08/17 22:18 D-Dimer, Quantitative < 200 ng/mlDDU (0-243) 11/09/17 13:02 Sodium 138 mmol/L (132-148) 11/11/17 11:18 Potassium 4.0 mmol/L (3.6-5.2) 11/11/17 11:18 Chloride 99 mmol/L (98-107) 11/11/17 11:18 Carbon Dioxide 30 mmol/L (22-30) 11/11/17 11:18 Anion Gap 13 (10-20) 11/11/17 11:18 BUN 22 mg/dL (9-20) H 11/11/17 11:18 Creatinine 0.8 mg/dL (0.8-1.5) 11/11/17 11:18 Est GFR ( Amer) > 60 11/11/17 11:18 Est GFR (Non-Af Amer) > 60 11/11/17 11:18 POC Glucose (mg/dL) 288 mg/dL (65-110) H 11/11/17 11:58 Random Glucose 274 mg/dL (75-110) H 11/11/17 11:18 Calcium 9.6 mg/dl (8.6-10.4) 11/11/17 11:18 Total Bilirubin 0.3 mg/dL (0.2-1.3) 11/11/17 11:18 AST 29 U/L (17-59) 11/11/17 11:18 ALT 56 U/L (21-72) 11/11/17 11:18 Alkaline Phosphatase 89 U/L (38-126) 11/11/17 11:18 Total Creatine Kinase 27 U/L (55-170) L 11/10/17 00:43 CK-MB (Mass) 0.75 ng/mL (0.0-3.38) 11/10/17 00:43 Troponin I < 0.0120 ng/mL (0.00-0.120) 11/10/17 00:43 Total Protein 6.6 g/dL (6.3-8.3) 11/11/17 11:18 Albumin 3.2 g/dL (3.5-5.0) L 11/11/17 11:18 Globulin 3.4 gm/dL (2.2-3.9) 11/11/17 11:18 Albumin/Globulin Ratio 0.9 (1.0-2.1) L 11/11/17 11:18 Urine Opiates Screen Negative (NEGATIVE) 11/09/17 13:02 Urine Methadone Screen Negative (NEGATIVE) 11/09/17 13:02 Ur Barbiturates Screen Negative (NEGATIVE) 11/09/17 13:02 Ur Phencyclidine Scrn Negative (NEGATIVE) 11/09/17 13:02 Ur Amphetamines Screen Negative (NEGATIVE) 11/09/17 13:02 U Benzodiazepines Scrn Negative (NEGATIVE) 11/09/17 13:02 U Oth Cocaine Metabols Negative (NEGATIVE) 11/09/17 13:02 U Cannabinoids Screen Negative (NEGATIVE) 11/09/17 13:02 Blood Type O POSITIVE 11/08/17 22:26 Antibody Screen Negative 11/08/17 22:26 Discharge Exam - Head Exam Head Exam: ATRAUMATIC, NORMOCEPHALIC Discharge Plan - Discharge Medications Prescriptions: Rosuvastatin Calcium [Crestor] 40 mg PO HS #30 tablet Isosorbide Mononitrate ER [Imdur ER] 30 mg PO DAILY #30 tab - Follow Up Plan Condition: GOOD Disposition: HOME/ ROUTINE Instructions: Heart Healthy Diet, Chest Pain (DC), Isosorbide Mononitrate Additional Instructions: Please f/u with Dr. Gordillo office /PMD in 1 week Please f/u with office in 2 weeks -call and make appointment continue medication as per Med. rec. Please cloth [facility]er [facility] Referrals: Arsenio Lang MD [Staff Provider] - Esau Gordillo MD [Staff Provider] -
== END 2017-11-11 16:14 | disposition home or self-care (01) ==
LOC: C.ER 21:31 → C.9E 23:24 → C.6T 11-09 13:24
PROVIDERS: ADMIT Internal Medicine; ATTEND Internal Medicine
DX: R07.9 Chest pain, unspecified (principal); E11.65 Type 2 diabetes mellitus with hyperglycemia; E78.00 Pure hypercholesterolemia, unspecified; E78.5 Hyperlipidemia, unspecified; F17.200 Nicotine dependence, unspecified, uncomplicated; I10 Essential (primary) hypertension; F10.10 Alcohol abuse, uncomplicated; I25.10 Atherosclerotic heart disease of native coronary artery without angina pectoris; J44.9 Chronic obstructive pulmonary disease, unspecified; Z83.3 Family history of diabetes mellitus; Z86.73 Personal history of transient ischemic attack (TIA), and cerebral infarction without residual deficits; Z95.5 Presence of coronary angioplasty implant and graft
CPT/HCPCS: 36415; 70450; 71045; 80048; 80053; 80324; 80345; 80346; 80349; 80353; 80358; 80361; 82948; 83992; 84484; 85025; 85027; 85378; 85610; 85730; 86850; 86900; 93306; 96372; 99285; G0378; J1650

== ENCOUNTER 2017-12-24 15:23 | Inpatient (IN) | payer OTHER ==
[2017-12-24 15:23] VITALS: BMI 25.2
[2017-12-24] MEDS ORDERED: Sodium Chloride 0.9% 1,000 ML IV ONE (16:09)
[2017-12-24] MEDS ORDERED: Sodium Chloride 0.9% 1,000 ML ONE (16:21)
[2017-12-24 16:35] LABS: BASO % 0.6 % (0.0-2.0); EOS # 0.1 K/uL (0.0-0.7); EOS % 0.9 % (0.0-4.0); HEMOGLOBIN 12.6 g/dL (12.0-18.0); LYMPH # 0.9 K/uL (1.0-4.3); LYMPH % 10.9 % (20.0-40.0); MEAN CELL VOLUME 85.5 fL (80.0-94.0); MEAN CORPUSCULAR HGB CONC 35.1 g/dL (33.0-37.0); MEAN PLATELET VOLUME 7.5 fL (7.2-11.7); MONO # 0.6 K/uL (0.0-0.8); MONO % 7.4 % (0.0-10.0); NEUT # 6.5 K/uL (1.8-7.0); NEUT % 80.2 % (50.0-75.0); RBC 4.19 Mil/uL (4.40-5.90); RED CELL DISTRIBUTION WIDTH 11.8 % (11.5-14.5); WHITE BLOOD COUNT 8.1 K/uL (4.8-10.8)
--- NOTE | 2017-12-24 16:35 | C.PDOC ---
History Of Present Illness 62yo male with history of diabetes, hypertension, hypercholesterolemia, presents to ED for evaluation of diarrhea for the past 3 days. Patient states the stool is dark but reports he has been taking pepto bismol for his symptoms. He also reports intermittent chest tightness which has been ongoing. He denies any fever, chills, weakness, numbness, shortness of breath, and offers no other medical complaints. Time Seen by Provider: 12/24/17 15:52 Chief Complaint (Nursing): Abdominal Pain History Per: Patient History/Exam Limitations: no limitations Onset/Duration Of Symptoms: Days (3) Current Symptoms Are (Timing): Still Present Location Of Pain/Discomfort: Diffuse Associated Symptoms: Diarrhea, Chest Pain (tightness) Past Medical History Reviewed: Historical Data, Nursing Documentation, Vital Signs Vital Signs: Last Vital Signs Temp 98.5 F 12/24/17 15:28 Pulse 96 H 12/24/17 17:10 Resp 16 12/24/17 17:10 BP 138/72 12/24/17 17:10 Pulse Ox 100 12/24/17 18:14 - Medical History PMH: Arthritis, CAD, Diabetes, HIV (undetectable), HTN, Hypercholesterolemia Denies: Chronic Kidney Disease Surgical History: Coronary Stent (cardiac cath with stent placement) Denies: Pacemaker - [facility] Procedures DILATION OF 1 COR ART WITH DRUG-ELUT INTRA, PERC APPROACH (08/16/17) FLUOROSCOPY OF MULT COR ART USING L OSM CONTRAST (08/16/17) FLUOROSCOPY OF RIGHT AND LEFT HEART USING L OSM CONTRAST (08/16/17) MEASURE OF CARDIAC SAMPL & PRESSURE, L HEART, PERC APPROACH (08/16/17) MEASUREMENT OF ARTERIAL PRESSURE, CORONARY, PERC APPROACH (08/16/17) ULTRASONOGRAPHY OF RIGHT AND LEFT HEART, TRANSESOPHAGEAL (09/10/16) Family History: States: Diabetes, Hypertension - Social History Hx Tobacco Use: Yes (1/2 pack daily) Hx Alcohol Use: No Hx Substance Use: No - Immunization History Hx Tetanus Toxoid Vaccination: No Hx Influenza Vaccination: No Hx Pneumococcal Vaccination: No Review Of Systems Except As Marked, All Systems Reviewed And Found Negative. Constitutional: Negative for: Fever, Chills Cardiovascular: Positive for: Chest Pain (tightness) Respiratory: Negative for: Shortness of Breath Gastrointestinal: Positive for: Diarrhea (dark colored due to pepto bismol use) Physical Exam - Physical Exam Appears: Non-toxic, No Acute Distress Skin: Normal Color, Warm, Dry Head: Atraumatic, Normacephalic Eye(s): bilateral: Normal Inspection, PERRL, EOMI Neck: Normal ROM, Supple Chest: Symmetrical Cardiovascular: Rhythm Regular Respiratory: Normal Breath Sounds Gastrointestinal/Abdominal: Normal Exam, Soft, No Tenderness Back: Normal Inspection Extremity: Normal ROM, No Pedal Edema, No Deformity, No Swelling Neurological/Psych: Oriented x3 ED Course And Treatment - Laboratory Results Result Diagrams: 12/24/17 16:30 12/24/17 16:30 Lab Interpretation: Abnormal Interpretation Of Abnormal: troponin > 1 ECG: Interpreted By Me ECG Rhythm: Sinus Tachycardia ECG Interpretation: No Acute Changes Rate From EC O2 Sat by Pulse Oximetry: 100 (RA) Pulse Ox Interpretation: Normal - Radiology CXR: Viewed By Me, Read By Radiologist (FINDINGS:) Progress Note: Treated with asa 325 mg PO Reassessment Condition: Improved - Physician Consult Information Physician Contacted: Esau Gordillo Outcome Of Conversation: admit to tele Medical Decision Making Medical Decision Making: Plan: -- Labs -- IV Fluids -- Urinalysis Disposition Discussed With : Esau Gordillo Doctor Will See Patient In The: Hospital - Disposition Disposition: HOSPITALIZED Disposition Time: 18:10 Condition: STABLE Forms: [facility] ([place]) - POA Present On Arrival: None - Clinical Impression Clinical Impression: Diarrhea, Chest pain, ACS (acute coronary syndrome) - PA / PRINCIPAL JAVA DEVELOPER / Resident Statement MD/DO has reviewed & agrees with the documentation as recorded. - Scribe Statement The provider has reviewed the documentation as recorded by the Scribe (Corine Arrington) Provider Attestation: All medical record entries made by the Scribe were at my direction and personally dictated by me. I have reviewed the chart and agree that the record accurately reflects my personal performance of the history, physical exam, medical decision making, and the department course for this patient. I have also personally directed, reviewed, and agree with the discharge instructions and disposition. Decision To Admit - Pt Status Changed To: Hospital Disposition Of: Inpatient - Admit Certification Admit to Inpatient:: After my assessment, the patient will require hospitalization for at least two midnights. This is because of the severity of symptoms shown, intensity of services needed, and/or the medical risk in this patient being treated as an outpatient. - InPatient: Physician Admission Certification:: ACS. Chest Pain. Elevated Troponin - . Bed Request Type: Telemetry Admitting Physician: Esau Gordillo Patient Diagnosis: Diarrhea, Chest pain, ACS (acute coronary syndrome)
[2017-12-24 16:55] LABS: ALB/GLOB RATIO 0.8 (1.0-2.1); ALBUMIN 3.3 g/dL (3.5-5.0); ALT/SGPT 45 U/L (21-72); AST/SGOT 27 U/L (17-59); BLOOD UREA NITROGEN 11 mg/dL (9-20); CALCIUM 8.9 mg/dl (8.6-10.4); GFR AFRICAN-AMERICAN > 60; GFR NON-AFRICAN AMERICAN > 60; LIPASE 20 U/L (23-300)
[2017-12-24 17:44] LABS: PROTHROMBIN TIME 11.6 SECONDS (9.7-12.2)
--- NOTE | 2017-12-24 18:14 | RAD ---
HISTORY: Cough r/o CHF COMPARISON: 11/08/2017 TECHNIQUE: Chest PA and lateral FINDINGS: LUNGS: No infiltrate. 1.4 cm circumscribed nodular opacity at right base not evident in lateral projection. Possible nipple shadow. Recommend repeat PA chest radiograph with radiopaque nipple markers when clinically feasible. This was not evident on recent examination of 11/08/2017. PLEURA: No significant pleural effusion identified. No pneumothorax apparent. CARDIOVASCULAR: Normal. OSSEOUS STRUCTURES: No significant abnormalities. VISUALIZED UPPER ABDOMEN: Normal. OTHER FINDINGS: None. IMPRESSION: 1.4 cm nodule at right lung base, possibly nipple shadow. Recommend repeat PA chest radiograph with radiopaque nipple markers when clinically feasible.
[2017-12-24] MEDS ORDERED: Heparin25000 units/250ml 1/2NS 25,000 UNITS/250 ML BAG IV ONE (18:21)
[2017-12-24] MEDS ORDERED: Heparin25000 units/250ml 1/2NS 25,000 UNITS/250 ML BAG IV PRN (22:06)
--- NOTE | 2017-12-24 23:02 | CP.PCM.HP ---
History of Present Illness - History of Present Illness History of Present Illness: History Of Present Illness 62yo male with history of diabetes, hypertension, hypercholesterolemia, presents to ED for evaluation of diarrhea for the past 3 days. Patient states the stool is dark but reports he has been taking pepto bismol for his symptoms. He also reports intermittent chest tightness which has been ongoing. He denies any fever, chills, weakness, numbness, shortness of breath, and offers no other medical complaints. Past Patient History - Infectious Disease Hx of Infectious Diseases: None - Past Medical History & Family History Past Medical History?: Yes - Past Social History Smoking Status: Heavy Smoker > 10 Cigarettes Daily - CARDIAC Hx Cardiac Disorders: Yes Hx Hypercholesterolemia: Yes Hx Hypertension: Yes Hx Pacemaker: No - PULMONARY Hx Respiratory Disorders: No - NEUROLOGICAL Hx Neurological Disorder: Yes HX Cerebrovascular Accident: Yes - HEENT Hx HEENT Problems: No - RENAL Hx Chronic Kidney Disease: No - ENDOCRINE/METABOLIC Hx Endocrine Disorders: Yes Hx Diabetes Mellitus Type 2: Yes - HEMATOLOGICAL/ONCOLOGICAL Hx Human Immunodeficiency Virus (HIV): Yes (undetectable) - INTEGUMENTARY Hx Dermatological Problems: No - MUSCULOSKELETAL/RHEUMATOLOGICAL Hx Musculoskeletal Disorders: Yes Hx Arthritis: Yes Hx Falls: No - GASTROINTESTINAL Hx Gastrointestinal Disorders: No - GENITOURINARY/GYNECOLOGICAL Hx Genitourinary Disorders: No - PSYCHIATRIC Hx Substance Use: No - SURGICAL HISTORY Hx Surgeries: Yes Hx Coronary Stent: Yes (cardiac cath with stent placement) - ANESTHESIA Hx Anesthesia: Yes Hx Anesthesia Reactions: No Hx Malignant Hyperthermia: No Meds Allergies/Adverse Reactions: Allergies Allergy/AdvReac Type Severity Reaction Status Date / Time No Known Allergies Allergy Verified 12/24/17 15:31 Results - Vital Signs Recent Vital Signs: Last Vital Signs Temp 100.2 F H 12/24/17 22:11 Pulse 96 H 12/24/17 22:20 Resp 18 12/24/17 22:20 BP 148/85 12/24/17 22:11 Pulse Ox 95 12/24/17 22:20 - Labs Result Diagrams: 12/24/17 16:30 12/24/17 16:30 Labs: Laboratory Results - last 24 hr 12/24/17 12/24/17 12/24/17 16:30 16:30 17:30 WBC 8.1 RBC 4.19 L Hgb 12.6 Hct 35.9 MCV 85.5 D MCH 30.0 MCHC 35.1 RDW 11.8 Plt Count 321 D MPV 7.5 Neut % (Auto) 80.2 H Lymph % (Auto) 10.9 L [place] % (Auto) 7.4 Eos % (Auto) 0.9 Baso % (Auto) 0.6 Neut # (Auto) 6.5 Lymph # (Auto) 0.9 L [place] # (Auto) 0.6 Eos # (Auto) 0.1 Baso # (Auto) 0.0 PT 11.6 INR 1.0 Sodium 134 Potassium 4.3 Chloride 93 L Carbon Dioxide 30 Anion Gap 15 BUN 11 Creatinine 0.7 L Est GFR ( Amer) > 60 Est GFR (Non-Af Amer) > 60 Random Glucose 319 H Calcium 8.9 Total Bilirubin 0.6 AST 27 ALT 45 Alkaline Phosphatase 107 CK-MB (Mass) 1.80 Troponin I 1.0300 H* Total Protein 7.6 Albumin 3.3 L Globulin 4.3 H Albumin/Globulin Ratio 0.8 L Lipase 20 L
[2017-12-24 23:45] LABS: CK-MB 1.41 ng/mL (0.0-3.38); TROPONIN I 1.23 ng/mL (0.00-0.120)
[2017-12-25] MEDS ORDERED: guaiFENesin DM 200 mg-20 mg/10 ml UD PO STA (01:01)
[2017-12-25] MEDS ORDERED: Heparin25000 units/250ml 1/2NS 25,000 UNITS/250 ML BAG IV PRN (02:15)
[2017-12-25] MEDS ORDERED: Verapamil 2 ML ONE (06:57)
[2017-12-25] MEDS ORDERED: Nitroglycerin 50mg in D5W 50 MG/250 ML BOTTLE IV ONE (06:57)
[2017-12-25] MEDS ORDERED: Midazolam 2 MG/2 ML VIAL ONE ×2 (07:57→08:16)
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
[2017-12-25] MEDS ORDERED: Metoprolol Succinate 25 mg XL Tab PO SCH ×2 (10:00)
[2017-12-25] MEDS ORDERED: Enoxaparin 40 mg Syringe SC SCH (10:00)
[2017-12-25] MEDS ORDERED: Sodium Chloride 0.9% 500 ML IV SCH (11:00)
[2017-12-25] MEDS: Metoprolol Succinate 50 mg XL Tab PO SCH (12:38)
--- NOTE | 2017-12-25 12:52 | CARD ---
APPROVED REPORT EKG Measurement Heart [id number] VT [id number] [id number] <Conclusion> Sinus tachycardia Possible Left atrial enlargement Septal infarct, age undetermined Abnormal ECG
[2017-12-25] MEDS: Sodium Chloride 0.9% 1,000 ML IV SCH (12:54)
[2017-12-25 13:53] LABS: HEMOGLOBIN 11.2 g/dL (12.0-18.0); MEAN CELL VOLUME 85.4 fL (80.0-94.0); MEAN CORPUSCULAR HEMOGLOBIN 30.1 pg (27.0-31.0); MEAN CORPUSCULAR HGB CONC 35.3 g/dL (33.0-37.0); MEAN PLATELET VOLUME 8.3 fL (7.2-11.7); RBC 3.72 Mil/uL (4.40-5.90); RED CELL DISTRIBUTION WIDTH 12.1 % (11.5-14.5); WHITE BLOOD COUNT 8.9 K/uL (4.8-10.8)
[2017-12-25 14:05] LABS: SQUAMOUS EPITHIAL < 1 /hpf (0-5); URINE BILIRUBIN NEGATIVE (NEGATIVE); URINE BLOOD 1+ (NEGATIVE); URINE CLARITY Clear (Clear); URINE COLOR Yellow (YELLOW); URINE GLUCOSE (UA) 3+ mg/dL (Normal); URINE LEUKOCYTE ESTERASE NEG Leu/uL (Negative); URINE PROTEIN 1+ mg/dL (NEGATIVE)
[2017-12-25] MEDS ORDERED: guaiFENesin 200 mg/10 ml Syrup UD PO PRN (14:23)
[2017-12-25 14:35] LABS: CK-MB 2.24 ng/mL (0.0-3.38); TROPONIN I 1.32 ng/mL (0.00-0.120)
[2017-12-25] MEDS: Azithromycin 500mg/250ML NS 500 MG/250 ML BAG IVPB SCH (15:57)
[2017-12-25] MEDS: (Novolog) Insulin Aspart, Recombinant 100 u/ml 10 ml vial SC SCH ×2 (17:02→21:55)
[2017-12-25] MEDS: Albuterol-Ipratrop 3 mg / 0.5 (3 ml) UD INH SCH (19:06)
[2017-12-25] MEDS ORDERED: MethylPREDNISolone 40 mg Vial IVP STA (19:42)
[2017-12-25] MEDS ORDERED: Ipratropium 0.02% Inhal Soln (0.5 mg/2.5 ml) UD IH SCH (19:45)
[2017-12-25] MEDS: guaiFENesin 600 mg ER Tab PO SCH (19:53)
[2017-12-25] MEDS: (Lantus) Insulin Glargine, Recombinant SC SCH (21:51)
--- NOTE | 2017-12-25 23:28 | CP.PCM.PN ---
Objective - Vital Signs/Intake and Output Vital Signs (last 24 hours): Temp Pulse Resp BP Pulse Ox 98 F 80 20 118/65 95 12/25/17 15:29 12/25/17 19:07 12/25/17 15:29 12/25/17 15:29 12/25/17 15:29 Intake and Output: 12/25/17 12/26/17 18:59 06:59 Output Total 900 Balance -900 - Medications Medications: Current Medications Albuterol/Ipratropium (Duoneb 3 Mg/0.5 Mg (3 Ml) Ud) 3 ml INH RQ6 [facility] Last Admin: 12/25/17 19:06 Dose: 3 ml Amlodipine Besylate (Norvasc) 5 mg PO DAILY [facility] Clopidogrel Bisulfate (Plavix) 75 mg PO DAILY [facility] Last Admin: 12/25/17 12:38 Dose: 75 mg Gabapentin (Neurontin) 400 mg PO AMPM [facility] Last Admin: 12/25/17 17:08 Dose: 400 mg Gabapentin (Neurontin) 800 mg PO HS [facility] Last Admin: 12/25/17 21:51 Dose: 800 mg Guaifenesin (Mucinex La) 600 mg PO BID [facility] Last Admin: 12/25/17 19:53 Dose: 600 mg Sodium Chloride (Sodium Chloride 0.9%) 1,000 mls @ 80 mls/hr IV .[id number] [facility] Last Admin: 12/25/17 12:54 Dose: 80 mls/hr Ceftriaxone Sodium 1 gm/ (Sodium Chloride) 100 mls @ 100 mls/hr IVPB DAILY [facility] PRN Reason: Protocol Last Admin: 12/25/17 14:29 Dose: 100 mls/hr Azithromycin (Zithromax 500mg In Ns Addvantage) 500 mg in 250 mls @ 167 mls/hr IVPB Q24H [facility] PRN Reason: Protocol Last Admin: 12/25/17 15:57 Dose: 167 mls/hr Insulin Aspart (Novolog) 0 unit SC ACHS [facility] PRN Reason: Protocol Last Admin: 12/25/17 21:55 Dose: Not Given Insulin Glargine (Lantus) 10 unit SC HS [facility] Last Admin: 12/25/17 21:51 Dose: 10 units Losartan Potassium (Cozaar) 100 mg PO DAILY [facility] Last Admin: 12/25/17 12:38 Dose: 100 mg Metoprolol Succinate (Toprol Xl) 50 mg PO DAILY [facility] Last Admin: 12/25/17 12:38 Dose: 50 mg Rosuvastatin Calcium (Crestor) 20 mg PO HS [facility] Last Admin: 12/25/17 21:51 Dose: 20 mg Sitagliptin Phosphate (Januvia) 50 mg PO DAILY [facility] - Labs Labs: 12/25/17 13:48 12/24/17 16:30 PT 11.6 SECONDS (9.7-12.2) 12/24/17 17:30 INR 1.0 12/24/17 17:30 APTT 33 SECONDS (21-34) D 12/25/17 13:48
[2017-12-26] MEDS: Sodium Chloride 0.9% 1,000 ML IV SCH ×3 (01:30→20:00)
[2017-12-26] MEDS: Albuterol-Ipratrop 3 mg / 0.5 (3 ml) UD INH SCH ×4 (01:52→19:18)
[2017-12-26] MEDS: (Novolog) Insulin Aspart, Recombinant 100 u/ml 10 ml vial SC SCH ×4 (08:31→21:24)
[2017-12-26] MEDS: Metoprolol Succinate 50 mg XL Tab PO SCH (09:40)
[2017-12-26] MEDS: guaiFENesin 600 mg ER Tab PO SCH ×2 (09:40→18:07)
--- NOTE | 2017-12-26 11:16 | CP.PCM.PN ---
<Cheo Sofia - Last Filed: 12/26/17 13:04> Subjective - Date & Time of Evaluation Date of Evaluation: 12/26/17 Time of Evaluation: 10:30 - Subjective Subjective: Cardiology Progress Note Patient seen and examined at bedside. Patient denies any chest pain, dyspnea, or palpitations. He reports having clothe drenching night sweats, enough to change his clothes and bedsheets a few times overnight. He reports that his stool is formed, but still dark in color. He denies having a colonoscopy in the past. Objective - Vital Signs/Intake and Output Vital Signs (last 24 hours): Temp Pulse Resp BP Pulse Ox 97.9 F 74 20 127/83 96 12/26/17 07:47 12/26/17 07:48 12/26/17 07:47 12/26/17 07:47 12/26/17 07:47 Intake and Output: 12/26/17 12/26/17 06:59 18:59 Intake Total 1000 Output Total 1100 Balance -100 - Medications Medications: Current Medications Albuterol/Ipratropium (Duoneb 3 Mg/0.5 Mg (3 Ml) Ud) 3 ml INH RQ6 [facility] Last Admin: 12/26/17 07:22 Dose: 3 ml Amlodipine Besylate (Norvasc) 5 mg PO DAILY [facility] Clopidogrel Bisulfate (Plavix) 75 mg PO DAILY [facility] Last Admin: 12/26/17 09:40 Dose: 75 mg Gabapentin (Neurontin) 400 mg PO AMPM [facility] Last Admin: 12/26/17 09:40 Dose: 400 mg Gabapentin (Neurontin) 800 mg PO HS [facility] Last Admin: 12/25/17 21:51 Dose: 800 mg Guaifenesin (Mucinex La) 600 mg PO BID [facility] Last Admin: 12/26/17 09:40 Dose: 600 mg Sodium Chloride (Sodium Chloride 0.9%) 1,000 mls @ 80 mls/hr IV .[id number] [facility] Last Admin: 12/26/17 01:30 Dose: Not Given Ceftriaxone Sodium 1 gm/ (Sodium Chloride) 100 mls @ 100 mls/hr IVPB DAILY [facility] PRN Reason: Protocol Last Admin: 12/26/17 09:40 Dose: 100 mls/hr Azithromycin (Zithromax 500mg In Ns Addvantage) 500 mg in 250 mls @ 167 mls/hr IVPB Q24H [facility] PRN Reason: Protocol Last Admin: 12/25/17 15:57 Dose: 167 mls/hr Insulin Aspart (Novolog) 0 unit SC ACHS [facility] PRN Reason: Protocol Last Admin: 12/26/17 08:31 Dose: 8 unit Insulin Glargine (Lantus) 10 unit SC HS [facility] Last Admin: 12/25/17 21:51 Dose: 10 units Losartan Potassium (Cozaar) 100 mg PO DAILY [facility] Last Admin: 12/26/17 09:40 Dose: 100 mg Metoprolol Succinate (Toprol Xl) 50 mg PO DAILY [facility] Last Admin: 12/26/17 09:40 Dose: 50 mg Rosuvastatin Calcium (Crestor) 20 mg PO HS [facility] Last Admin: 12/25/17 21:51 Dose: 20 mg Sitagliptin Phosphate (Januvia) 50 mg PO DAILY [facility] Last Admin: 12/26/17 09:40 Dose: 50 mg - Labs Labs: 12/25/17 13:48 12/24/17 16:30 PT 11.6 SECONDS (9.7-12.2) 12/24/17 17:30 INR 1.0 12/24/17 17:30 APTT 33 SECONDS (21-34) D 12/25/17 13:48 - Constitutional Appears: Well, Non-toxic - Head Exam Head Exam: ATRAUMATIC, NORMOCEPHALIC - Eye Exam Additional comments: right lid lag - ENT Exam ENT Exam: Mucous Membranes Moist - Neck Exam Neck Exam: Normal Inspection - Respiratory Exam Additional comments: crackles heard in left lung base - Cardiovascular Exam Cardiovascular Exam: RRR, +S1, +S2 - GI/Abdominal Exam GI & Abdominal Exam: Soft, Normal Bowel Sounds. absent: Tenderness - Extremities Exam Extremities Exam: Normal Inspection. absent: Calf Tenderness - Neurological Exam Neurological Exam: Alert, Awake, Oriented x3 - Psychiatric Exam Psychiatric exam: Normal Affect, Normal Mood - Skin Skin Exam: Dry, Intact, Normal Color, Warm Assessment and Plan - Assessment and Plan (Free Text) Assessment: 62 year old male with a past medical history significant for DM II, dyslipidemia, HIV untreated, HCV untreated, hypertension, active smoking, CAD with ROLAND stent placed on 08/20/17 in the mid left anterior descending artery who presents to [facility] with 4 days of cough, diarrhea, fever, chills, and chest pain. Upon further questioning patient reports having drenching night sweats and a new pulmonary opacification seen on two-view chest X-ray. CT chest , abdomen, and pelvis ordered to assess for underlying malignancy and for confirmation of left sided pneumonia. 1) Chest pain with elevated troponin likely secondary to demand ischemia in the setting of an active infection, likely pneumonia - Left heart catheterization showed 60% stenosis in the proximal LAD with no need for PCI. Continue optimal medical therapy with aspirin, plavix, metoprolol, statin, and ARB. 2) New pulmonary opacification (observed on two-view chest x-ray) in a patient complaining new- onset drenching night sweats with a history of recurrent pneumonias, HIV, HCV, heavy alcohol and tobacco use - Non-contrast CT of chest, abdomen, and pelvis shows infiltrate in left posterior lung base. Otherwise, official report not completed at this time. We will continue to follow with you while the patient is in-house. Case discussed with attending physician. Dr. Lang. <Arsenio Lang - Last Filed: 12/29/17 21:55> Objective - Vital Signs/Intake and Output Vital Signs (last 24 hours): Temp Pulse Resp BP Pulse Ox 97.4 F L 85 20 150/80 99 12/29/17 15:34 12/29/17 15:34 12/29/17 15:34 12/29/17 15:34 12/29/17 15:34 Intake and Output: 12/29/17 12/30/17 18:59 06:59 Output Total 1100 Balance -1100 - Medications Medications: Current Medications Albuterol/Ipratropium (Duoneb 3 Mg/0.5 Mg (3 Ml) Ud) 3 ml INH RQ6 [facility] Last Admin: 12/29/17 19:26 Dose: 3 ml Amlodipine Besylate (Norvasc) 5 mg PO DAILY [facility] Clopidogrel Bisulfate (Plavix) 75 mg PO DAILY [facility] Last Admin: 12/29/17 11:06 Dose: 75 mg Gabapentin (Neurontin) 400 mg PO AMPM [facility] Last Admin: 12/29/17 17:20 Dose: 400 mg Gabapentin (Neurontin) 800 mg PO HS [facility] Guaifenesin (Mucinex La) 600 mg PO BID [facility] Last Admin: 12/29/17 17:20 Dose: 600 mg Ceftriaxone Sodium 1 gm/ (Sodium Chloride) 100 mls @ 100 mls/hr IVPB DAILY [facility] PRN Reason: Protocol Last Admin: 12/29/17 11:10 Dose: 100 mls/hr Azithromycin (Zithromax 500mg In Ns Addvantage) 500 mg in 250 mls @ 167 mls/hr IVPB Q24H [facility] PRN Reason: Protocol Last Admin: 12/29/17 16:41 Dose: 167 mls/hr Insulin Aspart (Novolog) 0 unit SC ACHS [facility] PRN Reason: Protocol Last Admin: 12/29/17 16:40 Dose: 4 unit Insulin Glargine (Lantus) 20 unit SC HS [facility] Losartan Potassium (Cozaar) 100 mg PO DAILY [facility] Last Admin: 12/29/17 11:07 Dose: 100 mg Metformin HCl (Glucophage) 850 mg PO BIDCC [facility] Last Admin: 12/29/17 17:20 Dose: 850 mg Metoprolol Succinate (Toprol Xl) 50 mg PO DAILY [facility] Last Admin: 12/29/17 11:07 Dose: 50 mg Prednisone (Prednisone Tab) 30 mg PO DAILY [facility] Last Admin: 12/29/17 11:07 Dose: 30 mg Promethazine HCl/Codeine (Phenergan/Codeine Oral Syrup) 5 ml PO Q4 PRN PRN Reason: Cough Last Admin: 12/29/17 06:43 Dose: 5 ml Rosuvastatin Calcium (Crestor) 20 mg PO HS [facility] Last Admin: 12/28/17 22:07 Dose: 20 mg Sitagliptin Phosphate (Januvia) 100 mg PO DAILY [facility] Last Admin: 12/29/17 11:06 Dose: 100 mg - Labs Labs: 12/25/17 13:48 12/27/17 06:30 PT 11.6 SECONDS (9.7-12.2) 12/24/17 17:30 INR 1.0 12/24/17 17:30 APTT 33 SECONDS (21-34) D 12/25/17 13:48 Attending/Attestation - Attestation I have personally seen and examined this patient.: Yes I have fully participated in the care of the patient.: Yes I have reviewed all pertinent clinical information, including history, physical exam and plan: Yes
--- NOTE | 2017-12-26 14:07 | CT ---
PROCEDURE: CT Chest, Abdomen and Pelvis without intravenous contrast. High-resolution chest CT reconstruction. HISTORY: new pulmonary opacity, night sweats, COMPARISON: None. TECHNIQUE: Radiation dose: Total exam DLP = 1040.49 mGy-cm. This CT exam was performed using one or more of the following dose reduction techniques: Automated exposure control, adjustment of the mA and/or kV according to patient size, and/or use of iterative reconstruction technique. FINDINGS: CT CHEST WITHOUT CONTRAST: LUNGS: Clear. No nodule, mass or consolidation. No evidence of interstitial abnormality. MEDIASTINUM: Unremarkable. Normal caliber aorta and pulmonary arterial trunk. Normal size heart. LYMPH NODES: Unremarkable. PLEURA: Unremarkable. No pneumothorax. No pleural fluid. BONES: Unremarkable. OTHER FINDINGS: None. CT ABDOMEN AND PELVIS: LIVER: Unremarkable. No gross lesion or ductal dilatation. GALLBLADDER AND BILE DUCTS: Nonspecific gallbladder wall thickening. No calcified gallstones. Contracted gallbladder. PANCREAS: Unremarkable. No gross lesion or ductal dilatation. SPLEEN: Splenomegaly. The spleen measures 15.2 cm in greatest dimension. No focal mass. ADRENALS: Unremarkable. No mass. KIDNEYS AND URETERS: Bilobed cyst versus 2 adjacent cortical cysts in lower pole left kidney, roughly 2.4 cm. Upper pole left renal cortical cyst, 1.2 cm. These are better displayed on prior contrast enhanced CT examination of 12/06/2016. No renal calculus or hydronephrosis. VASCULATURE: Unremarkable. No aortic aneurysm. BOWEL: Sigmoid diverticulosis without evidence of diverticulitis. No bowel obstruction. APPENDIX: Not identified. PERITONEUM: Unremarkable. No free fluid. No free air. LYMPH NODES: Unremarkable. No enlarged lymph nodes. BLADDER: Unremarkable. REPRODUCTIVE: Unremarkable prostate BONES: No acute fracture. Grade 1 anterolisthesis at L5-S1 with bilateral L5 pars defects. OTHER FINDINGS: None. IMPRESSION: No pulmonary infiltrate. No pulmonary mass. Mild splenomegaly. Sigmoid diverticulosis. Previously described bilateral small renal cortical cysts poorly demonstrated on noncontrast CT examination. 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 Otherwise unremarkable.
[2017-12-26] MEDS: Azithromycin 500mg/250ML NS 500 MG/250 ML BAG IVPB SCH (16:47)
[2017-12-26] MEDS: (Lantus) Insulin Glargine, Recombinant SC SCH (21:24)
--- NOTE | 2017-12-26 23:29 | CP.PCM.PN ---
Subjective - Date & Time of Evaluation Date of Evaluation: 12/26/17 Time of Evaluation: 18:00 - Subjective Subjective: Patient seen and examined at bedside. Objective - Vital Signs/Intake and Output Vital Signs (last 24 hours): Temp Pulse Resp BP Pulse Ox 98 F 80 20 155/83 H 97 12/26/17 15:00 12/26/17 15:00 12/26/17 15:00 12/26/17 15:00 12/26/17 15:00 Intake and Output: 12/26/17 12/27/17 18:59 06:59 Intake Total 960 Output Total 350 1000 Balance -350 -40 - Medications Medications: Current Medications Albuterol/Ipratropium (Duoneb 3 Mg/0.5 Mg (3 Ml) Ud) 3 ml INH RQ6 [facility] Last Admin: 12/26/17 19:18 Dose: 3 ml Amlodipine Besylate (Norvasc) 5 mg PO DAILY [facility] Clopidogrel Bisulfate (Plavix) 75 mg PO DAILY [facility] Last Admin: 12/26/17 09:40 Dose: 75 mg Gabapentin (Neurontin) 400 mg PO AMPM [facility] Last Admin: 12/26/17 18:07 Dose: 400 mg Gabapentin (Neurontin) 800 mg PO HS [facility] Last Admin: 12/26/17 21:02 Dose: 800 mg Guaifenesin (Mucinex La) 600 mg PO BID [facility] Last Admin: 12/26/17 18:07 Dose: 600 mg Sodium Chloride (Sodium Chloride 0.9%) 1,000 mls @ 80 mls/hr IV .[id number] [facility] Last Admin: 12/26/17 20:00 Dose: 80 mls/hr Ceftriaxone Sodium 1 gm/ (Sodium Chloride) 100 mls @ 100 mls/hr IVPB DAILY [facility] PRN Reason: Protocol Last Admin: 12/26/17 09:40 Dose: 100 mls/hr Azithromycin (Zithromax 500mg In Ns Addvantage) 500 mg in 250 mls @ 167 mls/hr IVPB Q24H [facility] PRN Reason: Protocol Last Admin: 12/26/17 16:47 Dose: 167 mls/hr Insulin Aspart (Novolog) 0 unit SC ACHS [facility] PRN Reason: Protocol Last Admin: 12/26/17 21:24 Dose: 3 unit Insulin Glargine (Lantus) 10 unit SC HS [facility] Last Admin: 12/26/17 21:24 Dose: 10 units Losartan Potassium (Cozaar) 100 mg PO DAILY [facility] Last Admin: 12/26/17 09:40 Dose: 100 mg Metoprolol Succinate (Toprol Xl) 50 mg PO DAILY [facility] Last Admin: 12/26/17 09:40 Dose: 50 mg Rosuvastatin Calcium (Crestor) 20 mg PO HS [facility] Last Admin: 12/26/17 21:02 Dose: 20 mg Sitagliptin Phosphate (Januvia) 50 mg PO DAILY [facility] Last Admin: 12/26/17 09:40 Dose: 50 mg - Labs Labs: 12/25/17 13:48 12/24/17 16:30 PT 11.6 SECONDS (9.7-12.2) 12/24/17 17:30 INR 1.0 12/24/17 17:30 APTT 33 SECONDS (21-34) D 12/25/17 13:48
[2017-12-27] MEDS: Sodium Chloride 0.9% 1,000 ML IV SCH ×3 (02:00→14:26)
[2017-12-27] MEDS: Albuterol-Ipratrop 3 mg / 0.5 (3 ml) UD INH SCH ×5 (02:53→19:51)
[2017-12-27 07:13] LABS: BLOOD UREA NITROGEN 18 mg/dL (9-20); GFR AFRICAN-AMERICAN > 60; GFR NON-AFRICAN AMERICAN > 60
[2017-12-27] MEDS: (Novolog) Insulin Aspart, Recombinant 100 u/ml 10 ml vial SC SCH ×4 (07:51→22:34)
[2017-12-27] MEDS ORDERED: Promethazine/Cod 6.25mg-10mg/5ml Syr UD PO STA (08:23)
--- NOTE | 2017-12-27 08:48 | CP.PCM.CON ---
History of Present Illness - History of Present Illness History of Present Illness: reason for consultation: shortness of breath and cough 62-year-old male with history of diabetes, hyperlipidemia, hypertension, coronary artery disease status post stent placement in August, long history of smoking presented with a 3 day history of cough, diarrhea and chest pain. Cough is mostly dry and both during the day and night and associated with chest pain/shortness of breath.patient states that cough medicine helps and last night he had difficulty sleeping because of shortness of breath and cough Past Medical History: DM II, dyslipidemia, hypertension, active smoking, CAD Past Surgical History: denies Social H: current tobacco user 40 pack year history, former ETOH abuse, sober past 5 years, denies illicit drug use Family hx: Mother- "heart disease" DM Allergies: NKDA Review of Systems - Review of Systems All systems: reviewed and no additional remarkable complaints except (shortness of breath and cough) Past Patient History - Infectious Disease Hx of Infectious Diseases: None - Past Medical History & Family History Past Medical History?: Yes - Past Social History Smoking Status: Heavy Smoker > 10 Cigarettes Daily - CARDIAC Hx Cardiac Disorders: Yes Hx Hypercholesterolemia: Yes Hx Hypertension: Yes Hx Pacemaker: No - PULMONARY Hx Respiratory Disorders: No - NEUROLOGICAL Hx Neurological Disorder: Yes HX Cerebrovascular Accident: Yes - HEENT Hx HEENT Problems: No - RENAL Hx Chronic Kidney Disease: No - ENDOCRINE/METABOLIC Hx Endocrine Disorders: Yes Hx Diabetes Mellitus Type 2: Yes - HEMATOLOGICAL/ONCOLOGICAL Hx Human Immunodeficiency Virus (HIV): Yes (undetectable) - INTEGUMENTARY Hx Dermatological Problems: No - MUSCULOSKELETAL/RHEUMATOLOGICAL Hx Musculoskeletal Disorders: Yes Hx Arthritis: Yes Hx Falls: No - GASTROINTESTINAL Hx Gastrointestinal Disorders: No - GENITOURINARY/GYNECOLOGICAL Hx Genitourinary Disorders: No - PSYCHIATRIC Hx Substance Use: No - SURGICAL HISTORY Hx Surgeries: Yes Hx Coronary Stent: Yes (cardiac cath with stent placement) - ANESTHESIA Hx Anesthesia: Yes Hx Anesthesia Reactions: No Hx Malignant Hyperthermia: No Meds Allergies/Adverse Reactions: Allergies Allergy/AdvReac Type Severity Reaction Status Date / Time No Known Allergies Allergy Verified 12/24/17 15:31 - Medications Medications: Current Medications Albuterol/Ipratropium (Duoneb 3 Mg/0.5 Mg (3 Ml) Ud) 3 ml INH RQ6 [facility] Last Admin: 12/27/17 07:10 Dose: 3 ml Amlodipine Besylate (Norvasc) 5 mg PO DAILY [facility] Clopidogrel Bisulfate (Plavix) 75 mg PO DAILY [facility] Last Admin: 12/26/17 09:40 Dose: 75 mg Gabapentin (Neurontin) 400 mg PO AMPM [facility] Last Admin: 12/26/17 18:07 Dose: 400 mg Gabapentin (Neurontin) 800 mg PO HS [facility] Last Admin: 12/26/17 21:02 Dose: 800 mg Guaifenesin (Mucinex La) 600 mg PO BID [facility] Last Admin: 12/26/17 18:07 Dose: 600 mg Sodium Chloride (Sodium Chloride 0.9%) 1,000 mls @ 80 mls/hr IV .[id number] [facility] Last Admin: 12/27/17 02:00 Dose: Not Given Ceftriaxone Sodium 1 gm/ (Sodium Chloride) 100 mls @ 100 mls/hr IVPB DAILY [facility] PRN Reason: Protocol Last Admin: 12/26/17 09:40 Dose: 100 mls/hr Azithromycin (Zithromax 500mg In Ns Addvantage) 500 mg in 250 mls @ 167 mls/hr IVPB Q24H [facility] PRN Reason: Protocol Last Admin: 12/26/17 16:47 Dose: 167 mls/hr Insulin Aspart (Novolog) [address] [facility] PRN Reason: Protocol Last Admin: 12/27/17 07:51 Dose: 10 unit Insulin Glargine (Lantus) 14 unit SC HS [facility] Losartan Potassium (Cozaar) 100 mg PO DAILY [facility] Last Admin: 12/26/17 09:40 Dose: 100 mg Metoprolol Succinate (Toprol Xl) 50 mg PO DAILY [facility] Last Admin: 12/26/17 09:40 Dose: 50 mg Promethazine HCl/Codeine (Phenergan/Codeine Oral Syrup) 5 ml PO STAT [facility] Stop: 12/27/17 08:24 Rosuvastatin Calcium (Crestor) [address] [facility] Last Admin: 12/26/17 21:02 Dose: 20 mg Sitagliptin Phosphate (Januvia) 100 mg PO DAILY [facility] Physical Exam - Head Exam Head Exam: ATRAUMATIC, NORMOCEPHALIC - ENT Exam ENT Exam: Mucous Membranes Moist - Neck Exam Neck exam: Positive for: Normal Inspection - Respiratory Exam Respiratory Exam: Clear to Auscultation Bilateral - Cardiovascular Exam Cardiovascular Exam: REGULAR RHYTHM - GI/Abdominal Exam GI & Abdominal Exam: Normal Bowel Sounds - Rectal Exam Rectal Exam: NORMAL INSPECTION Results - Vital Signs Recent Vital Signs: Last Vital Signs Temp 98 F 12/27/17 07:00 Pulse 108 H 12/27/17 08:00 Resp 20 12/27/17 07:00 BP 125/78 12/27/17 07:00 Pulse Ox 96 12/27/17 07:00 - Labs Result Diagrams: 12/25/17 13:48 12/27/17 06:30 Labs: Laboratory Results - last 24 hr 12/26/17 12/26/17 12/26/17 11:25 16:51 20:04 Sodium Potassium Chloride Carbon Dioxide Anion Gap BUN Creatinine Est GFR ( Amer) Est GFR (Non-Af Amer) POC Glucose (mg/dL) 424 H* 398 H Random Glucose Hemoglobin A1c 10.8 H Calcium 12/26/17 12/27/17 12/27/17 21:04 02:09 06:22 Sodium Potassium Chloride Carbon Dioxide Anion Gap BUN Creatinine Est GFR ( Amer) Est GFR (Non-Af Amer) POC Glucose (mg/dL) 371 H 395 H 399 H Random Glucose Hemoglobin A1c Calcium 12/27/17 06:30 Sodium 129 L Potassium 4.3 Chloride 95 L Carbon Dioxide 26 Anion Gap 13 BUN 18 Creatinine 0.7 L Est GFR ( Amer) > 60 Est GFR (Non-Af Amer) > 60 POC Glucose (mg/dL) Random Glucose 434 H* D Hemoglobin A1c Calcium 8.0 L Assessment & Plan (1) COPD (chronic obstructive pulmonary disease) with acute bronchitis Status: Acute Comment: cough and shortness of breath with long history of smoking secondary to acute bronchitis. Start IV steroids. Continue nebulizer treatment, IV antibiotics and antitussives. Cardiology workup. CAT scan of the chest showed no infiltrate
[2017-12-27] MEDS: Metoprolol Succinate 50 mg XL Tab PO SCH (09:20)
[2017-12-27] MEDS: MethylPREDNISolone 40 mg Vial IVP SCH ×3 (09:21→22:33)
[2017-12-27] MEDS: guaiFENesin 600 mg ER Tab PO SCH ×2 (09:21→17:32)
[2017-12-27] MEDS: Azithromycin 500mg/250ML NS 500 MG/250 ML BAG IVPB SCH (17:52)
--- NOTE | 2017-12-27 18:05 | CP.PCM.PN ---
Subjective - Date & Time of Evaluation Date of Evaluation: 12/27/17 Time of Evaluation: 18:00 - Subjective Subjective: Pt seen and examined, afebrile, is feeling better Objective - Vital Signs/Intake and Output Vital Signs (last 24 hours): Temp Pulse Resp BP Pulse Ox 97.5 F L 99 H 20 141/85 96 12/27/17 15:00 12/27/17 15:00 12/27/17 15:00 12/27/17 15:00 12/27/17 15:00 Intake and Output: 12/27/17 12/27/17 06:59 18:59 Intake Total 1860 1040 Output Total 2850 500 Balance -990 540 - Medications Medications: Current Medications Albuterol/Ipratropium (Duoneb 3 Mg/0.5 Mg (3 Ml) Ud) 3 ml INH RQ6 [facility] Last Admin: 12/27/17 13:08 Dose: 3 ml Amlodipine Besylate (Norvasc) 5 mg PO DAILY [facility] Clopidogrel Bisulfate (Plavix) 75 mg PO DAILY [facility] Last Admin: 12/27/17 09:20 Dose: 75 mg Gabapentin (Neurontin) 400 mg PO AMPM [facility] Last Admin: 12/27/17 17:32 Dose: 400 mg Gabapentin (Neurontin) 800 mg PO HS [facility] Last Admin: 12/26/17 21:02 Dose: 800 mg Guaifenesin (Mucinex La) 600 mg PO BID [facility] Last Admin: 12/27/17 17:32 Dose: 600 mg Sodium Chloride (Sodium Chloride 0.9%) 1,000 mls @ 80 mls/hr IV .[id number] [facility] Last Admin: 12/27/17 14:26 Dose: Not Given Ceftriaxone Sodium 1 gm/ (Sodium Chloride) 100 mls @ 100 mls/hr IVPB DAILY [facility] PRN Reason: Protocol Last Admin: 12/27/17 09:22 Dose: 100 mls/hr Azithromycin (Zithromax 500mg In Ns Addvantage) 500 mg in 250 mls @ 167 mls/hr IVPB Q24H [facility] PRN Reason: Protocol Last Admin: 12/27/17 17:52 Dose: 167 mls/hr Insulin Aspart (Novolog) 0 unit SC ACHS [facility] PRN Reason: Protocol Last Admin: 12/27/17 17:32 Dose: 10 unit Insulin Glargine (Lantus) 14 unit SC HS [facility] Losartan Potassium (Cozaar) 100 mg PO DAILY [facility] Last Admin: 12/27/17 09:21 Dose: 100 mg Metformin HCl (Glucophage) 850 mg PO BIDCC [facility] Last Admin: 12/27/17 17:31 Dose: 850 mg Methylprednisolone (Solu-Medrol) 40 mg IVP Q8 [facility] Last Admin: 12/27/17 14:10 Dose: 40 mg Metoprolol Succinate (Toprol Xl) 50 mg PO DAILY [facility] Last Admin: 12/27/17 09:20 Dose: 50 mg Promethazine HCl/Codeine (Phenergan/Codeine Oral Syrup) 5 ml PO Q4 [facility]N PRN Reason: Cough Rosuvastatin Calcium (Crestor) 20 mg PO [facility] Last Admin: 12/26/17 21:02 Dose: 20 mg Sitagliptin Phosphate (Januvia) 100 mg PO DAILY [facility] Last Admin: 12/27/17 09:20 Dose: 100 mg - Labs Labs: 12/25/17 13:48 12/27/17 06:30 PT 11.6 SECONDS (9.7-12.2) 12/24/17 17:30 INR 1.0 12/24/17 17:30 APTT 33 SECONDS (21-34) D 12/25/17 13:48
[2017-12-27] MEDS: (Lantus) Insulin Glargine, Recombinant SC SCH (22:33)
[2017-12-28] MEDS: Albuterol-Ipratrop 3 mg / 0.5 (3 ml) UD INH SCH ×4 (01:06→20:26)
[2017-12-28] MEDS ORDERED: (Novolog) Insulin Aspart, Recombinant 100 u/ml 10 ml vial SC ONE (02:45)
[2017-12-28] MEDS: Sodium Chloride 0.9% 1,000 ML IV SCH (04:00)
[2017-12-28] MEDS: MethylPREDNISolone 40 mg Vial IVP SCH ×3 (05:49→22:07)
[2017-12-28] MEDS: (Novolog) Insulin Aspart, Recombinant 100 u/ml 10 ml vial SC SCH ×4 (07:44→22:08)
[2017-12-28] MEDS: guaiFENesin 600 mg ER Tab PO SCH ×2 (10:20→17:19)
[2017-12-28] MEDS: Metoprolol Succinate 50 mg XL Tab PO SCH (10:20)
[2017-12-28] MEDS ORDERED: (Lantus) Insulin Glargine, Recombinant SC ONE (12:00)
[2017-12-28] MEDS: Azithromycin 500mg/250ML NS 500 MG/250 ML BAG IVPB SCH (17:00)
[2017-12-28] MEDS: Promethazine/Cod 6.25mg-10mg/5ml Syr UD PO PRN ×2 (18:43→23:37)
--- NOTE | 2017-12-28 18:58 | CP.PCM.PN ---
Subjective - Date & Time of Evaluation Date of Evaluation: 12/28/17 Time of Evaluation: 16:00 - Subjective Subjective: patient seen and examined Complaining of cough productive off clear phlegm Less shortness of breath continue steroids, nebulizer treatment and antibiotics Objective - Vital Signs/Intake and Output Vital Signs (last 24 hours): Temp Pulse Resp BP Pulse Ox 97.3 F L 91 H 97 H 138/79 99 12/28/17 15:35 12/28/17 15:35 12/28/17 15:35 12/28/17 15:35 12/28/17 15:35 Intake and Output: 12/28/17 12/28/17 06:59 18:59 Intake Total 1850 1040 Output Total 1550 Balance 300 1040 - Medications Medications: Current Medications Albuterol/Ipratropium (Duoneb 3 Mg/0.5 Mg (3 Ml) Ud) 3 ml INH RQ6 [facility] Last Admin: 12/28/17 13:21 Dose: 3 ml Amlodipine Besylate (Norvasc) 5 mg PO DAILY [facility] Clopidogrel Bisulfate (Plavix) 75 mg PO DAILY [facility] Last Admin: 12/28/17 10:20 Dose: 75 mg Gabapentin (Neurontin) 400 mg PO AMPM [facility] Last Admin: 12/28/17 17:17 Dose: 400 mg Gabapentin (Neurontin) 800 mg PO HS [facility] Last Admin: 12/27/17 22:33 Dose: 800 mg Guaifenesin (Mucinex La) 600 mg PO BID [facility] Last Admin: 12/28/17 17:19 Dose: 600 mg Ceftriaxone Sodium 1 gm/ (Sodium Chloride) 100 mls @ 100 mls/hr IVPB DAILY [facility] PRN Reason: Protocol Last Admin: 12/28/17 10:21 Dose: 100 mls/hr Azithromycin (Zithromax 500mg In Ns Addvantage) 500 mg in 250 mls @ 167 mls/hr IVPB Q24H [facility] PRN Reason: Protocol Last Admin: 12/28/17 17:00 Dose: 167 mls/hr Insulin Aspart (Novolog) 0 unit SC ACHS [facility] PRN Reason: Protocol Last Admin: 12/28/17 17:19 Dose: 10 unit Insulin Glargine (Lantus) 14 unit SC HS [facility] Last Admin: 12/27/17 22:33 Dose: 14 units Losartan Potassium (Cozaar) 100 mg PO DAILY [facility] Last Admin: 12/28/17 10:20 Dose: 100 mg Metformin HCl (Glucophage) 850 mg PO BIDCC [facility] Last Admin: 12/28/17 17:17 Dose: 850 mg Methylprednisolone (Solu-Medrol) 40 mg IVP Q8 [facility] Last Admin: 12/28/17 13:53 Dose: 40 mg Metoprolol Succinate (Toprol Xl) 50 mg PO DAILY [facility] Last Admin: 12/28/17 10:20 Dose: 50 mg Promethazine HCl/Codeine (Phenergan/Codeine Oral Syrup) 5 ml PO Q4 PRN PRN Reason: Cough Last Admin: 12/28/17 18:43 Dose: 5 ml Rosuvastatin Calcium (Crestor) 20 mg PO HS [facility] Last Admin: 12/27/17 22:33 Dose: 20 mg Sitagliptin Phosphate (Januvia) 100 mg PO DAILY [facility] Last Admin: 12/28/17 10:20 Dose: 100 mg - Labs Labs: 12/25/17 13:48 12/27/17 06:30 PT 11.6 SECONDS (9.7-12.2) 12/24/17 17:30 INR 1.0 12/24/17 17:30 APTT 33 SECONDS (21-34) D 12/25/17 13:48 Assessment and Plan (1) COPD (chronic obstructive pulmonary disease) with acute bronchitis Status: Acute
[2017-12-28] MEDS: (Lantus) Insulin Glargine, Recombinant SC SCH (22:08)
--- NOTE | 2017-12-28 23:30 | CP.PCM.PN ---
Subjective - Date & Time of Evaluation Date of Evaluation: 12/28/17 Time of Evaluation: 19:00 - Subjective Subjective: Pt is seen and examined today during rounds Objective - Vital Signs/Intake and Output Vital Signs (last 24 hours): Temp Pulse Resp BP Pulse Ox 97.3 F L 91 H 97 H 138/79 99 12/28/17 15:35 12/28/17 15:35 12/28/17 15:35 12/28/17 15:35 12/28/17 15:35 Intake and Output: 12/28/17 12/29/17 18:59 06:59 Intake Total 1040 Balance 1040 - Medications Medications: Current Medications Albuterol/Ipratropium (Duoneb 3 Mg/0.5 Mg (3 Ml) Ud) 3 ml INH RQ6 [facility] Last Admin: 12/28/17 20:26 Dose: Not Given Amlodipine Besylate (Norvasc) 5 mg PO DAILY [facility] Clopidogrel Bisulfate (Plavix) 75 mg PO DAILY [facility] Last Admin: 12/28/17 10:20 Dose: 75 mg Gabapentin (Neurontin) 400 mg PO AMPM [facility] Last Admin: 12/28/17 17:17 Dose: 400 mg Gabapentin (Neurontin) 800 mg PO HS [facility] Last Admin: 12/28/17 22:07 Dose: 800 mg Guaifenesin (Mucinex La) 600 mg PO BID [facility] Last Admin: 12/28/17 17:19 Dose: 600 mg Ceftriaxone Sodium 1 gm/ (Sodium Chloride) 100 mls @ 100 mls/hr IVPB DAILY [facility] PRN Reason: Protocol Last Admin: 12/28/17 10:21 Dose: 100 mls/hr Azithromycin (Zithromax 500mg In Ns Addvantage) 500 mg in 250 mls @ 167 mls/hr IVPB Q24H [facility] PRN Reason: Protocol Last Admin: 12/28/17 17:00 Dose: 167 mls/hr Insulin Aspart (Novolog) 0 unit SC ACHS [facility] PRN Reason: Protocol Last Admin: 12/28/17 22:08 Dose: 2 unit Insulin Glargine (Lantus) 14 unit SC HS [facility] Last Admin: 12/28/17 22:08 Dose: 14 units Losartan Potassium (Cozaar) 100 mg PO DAILY [facility] Last Admin: 12/28/17 10:20 Dose: 100 mg Metformin HCl (Glucophage) 850 mg PO BIDCC [facility] Last Admin: 12/28/17 17:17 Dose: 850 mg Methylprednisolone (Solu-Medrol) 40 mg IVP Q8 [facility] Last Admin: 12/28/17 22:07 Dose: 40 mg Metoprolol Succinate (Toprol Xl) 50 mg PO DAILY [facility] Last Admin: 12/28/17 10:20 Dose: 50 mg Promethazine HCl/Codeine (Phenergan/Codeine Oral Syrup) 5 ml PO Q4 PRN PRN Reason: Cough Last Admin: 12/28/17 18:43 Dose: 5 ml Rosuvastatin Calcium (Crestor) 20 mg PO HS [facility] Last Admin: 12/28/17 22:07 Dose: 20 mg Sitagliptin Phosphate (Januvia) 100 mg PO DAILY [facility] Last Admin: 12/28/17 10:20 Dose: 100 mg - Labs Labs: 12/25/17 13:48 12/27/17 06:30 PT 11.6 SECONDS (9.7-12.2) 12/24/17 17:30 INR 1.0 12/24/17 17:30 APTT 33 SECONDS (21-34) D 12/25/17 13:48
[2017-12-29] MEDS: Albuterol-Ipratrop 3 mg / 0.5 (3 ml) UD INH SCH ×4 (01:06→19:26)
[2017-12-29] MEDS: Promethazine/Cod 6.25mg-10mg/5ml Syr UD PO PRN ×2 (06:43→22:23)
[2017-12-29] MEDS: (Novolog) Insulin Aspart, Recombinant 100 u/ml 10 ml vial SC SCH ×4 (09:04→22:25)
--- NOTE | 2017-12-29 09:57 | CP.PCM.PN ---
<Cheo Sofia - Last Filed: 12/29/17 12:02> Subjective - Date & Time of Evaluation Date of Evaluation: 12/29/17 Time of Evaluation: 09:30 - Subjective Subjective: Cardiology Progress Note Patient seen and examined at bedside. Patient denies fever, chills, night sweats , or chest pain over the weekend. He report that he has a dry cough and orthopnea. We discussed the results of his CT chest, abdomen, and pelvis. Nurse reports similar complaints voiced by the patient. Objective - Vital Signs/Intake and Output Vital Signs (last 24 hours): Temp Pulse Resp BP Pulse Ox 98.0 F 70 18 155/88 H 97 12/29/17 07:00 12/29/17 07:00 12/29/17 07:00 12/29/17 07:00 12/29/17 07:00 Intake and Output: 12/29/17 12/29/17 06:59 18:59 Intake Total 1110 Output Total 1200 Balance -90 - Medications Medications: Current Medications Albuterol/Ipratropium (Duoneb 3 Mg/0.5 Mg (3 Ml) Ud) 3 ml INH RQ6 [facility] Last Admin: 12/29/17 07:26 Dose: 3 ml Amlodipine Besylate (Norvasc) 5 mg PO DAILY [facility] Clopidogrel Bisulfate (Plavix) 75 mg PO DAILY [facility] Last Admin: 12/28/17 10:20 Dose: 75 mg Gabapentin (Neurontin) 400 mg PO AMPM [facility] Last Admin: 12/28/17 17:17 Dose: 400 mg Gabapentin (Neurontin) 800 mg PO HS [facility] Last Admin: 12/28/17 22:07 Dose: 800 mg Guaifenesin (Mucinex La) 600 mg PO BID [facility] Last Admin: 12/28/17 17:19 Dose: 600 mg Ceftriaxone Sodium 1 gm/ (Sodium Chloride) 100 mls @ 100 mls/hr IVPB DAILY [facility] PRN Reason: Protocol Last Admin: 12/28/17 10:21 Dose: 100 mls/hr Azithromycin (Zithromax 500mg In Ns Addvantage) 500 mg in 250 mls @ 167 mls/hr IVPB Q24H [facility] PRN Reason: Protocol Last Admin: 12/28/17 17:00 Dose: 167 mls/hr Insulin Aspart (Novolog) 0 unit SC ACHS [facility] PRN Reason: Protocol Last Admin: 12/29/17 09:04 Dose: 10 unit Insulin Glargine (Lantus) 14 unit SC [facility] Last Admin: 12/28/17 22:08 Dose: 14 units Losartan Potassium (Cozaar) 100 mg PO DAILY [facility] Last Admin: 12/28/17 10:20 Dose: 100 mg Metformin HCl (Glucophage) 850 mg PO BIDCC [facility] Last Admin: 12/29/17 09:07 Dose: 850 mg Metoprolol Succinate (Toprol Xl) 50 mg PO DAILY [facility] Last Admin: 12/28/17 10:20 Dose: 50 mg Prednisone (Prednisone Tab) 30 mg PO DAILY [facility] Promethazine HCl/Codeine (Phenergan/Codeine Oral Syrup) 5 ml PO Q4 PRN PRN Reason: Cough Last Admin: 12/29/17 06:43 Dose: 5 ml Rosuvastatin Calcium (Crestor) 20 mg PO [facility] Last Admin: 12/28/17 22:07 Dose: 20 mg Sitagliptin Phosphate (Januvia) 100 mg PO DAILY [facility] Last Admin: 12/28/17 10:20 Dose: 100 mg - Labs Labs: 12/25/17 13:48 12/27/17 06:30 PT 11.6 SECONDS (9.7-12.2) 12/24/17 17:30 INR 1.0 12/24/17 17:30 APTT 33 SECONDS (21-34) D 12/25/17 13:48 - Constitutional Appears: Well, Non-toxic - Head Exam Head Exam: ATRAUMATIC, NORMOCEPHALIC - Eye Exam Eye Exam: EOMI, Normal appearance - ENT Exam ENT Exam: Mucous Membranes Moist - Respiratory Exam Respiratory Exam: Clear to Ausculation Bilateral, NORMAL BREATHING PATTERN. absent: Accessory Muscle Use, Wheezes - Cardiovascular Exam Cardiovascular Exam: Tachycardia, +S1, +S2 - GI/Abdominal Exam GI & Abdominal Exam: Soft, Normal Bowel Sounds - Back Exam Back Exam: NORMAL INSPECTION. absent: CVA tenderness (L), CVA tenderness (R) - Neurological Exam Neurological Exam: Alert, Awake, Oriented x3 - Psychiatric Exam Psychiatric exam: Normal Affect, Normal Mood - Skin Skin Exam: Dry, Intact, Normal Color, Warm Assessment and Plan - Assessment and Plan (Free Text) Assessment: 62 year old male with a past medical history significant for DM II, dyslipidemia, HIV untreated, HCV untreated, hypertension, active smoking, CAD with ROLAND stent placed on 08/20/17 in the mid left anterior descending artery who presents to [facility] with 4 days of cough, diarrhea, fever, chills, and chest pain. Upon further questioning patient reports having drenching night sweats and a new pulmonary opacification seen on two-view chest X-ray. CT chest , abdomen, and pelvis ordered to assess for underlying malignancy and for confirmation of left sided pneumonia. 1) Chest pain with elevated troponin likely secondary to demand ischemia in the setting of an active infection, likely pneumonia. - Left heart catheterization showed 60% stenosis in the proximal LAD, though FFR and IVUS were not ascertained due to facility incapabilities. If, however, patient develops break-through chest pain, [place] [facility] [place] to assess FFR and IVUS of the stenosed LAD. (these functions cannot be performed at [facility] unless there is a code heart) -Continue optimal medical therapy with aspirin, plavix, metoprolol, statin, and ARB. 2) New pulmonary opacification (observed on two-view chest x-ray) in a patient complaining new- onset drenching night sweats with a history of recurrent pneumonias, HIV, HCV, heavy alcohol and tobacco use - Non-contrast CT of chest, abdomen, and pelvis shows infiltrate in left posterior lung (best seen on axial images 62-70 with lung window). Otherwise, radiologist impression reads as no pulmonary infiltrate. No pulmonary mass. Mild splenomegaly. Sigmoid diverticulosis. Previously described bilateral small renal cortical cysts poorly demonstrated on noncontrast CT examination. 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 Otherwise unremarkable. Disposition: If patient develops break-through chest pain, will take [place] [facility] [place] to assess FFR and IVUS of the stenosed LAD. (these functions cannot be performed at [facility] unless there is a code heart) We will continue to follow with you while the patient is in-house. Case reviewed and discussed with attending physician. Dr. Lang. <Arsenio Lang - Last Filed: 12/29/17 21:56> Objective - Vital Signs/Intake and Output Vital Signs (last 24 hours): Temp Pulse Resp BP Pulse Ox 97.4 F L 85 20 150/80 99 12/29/17 15:34 12/29/17 15:34 12/29/17 15:34 12/29/17 15:34 12/29/17 15:34 Intake and Output: 12/29/17 12/30/17 18:59 06:59 Output Total 1100 Balance -1100 - Medications Medications: Current Medications Albuterol/Ipratropium (Duoneb 3 Mg/0.5 Mg (3 Ml) Ud) 3 ml INH RQ6 [facility] Last Admin: 12/29/17 19:26 Dose: 3 ml Amlodipine Besylate (Norvasc) 5 mg PO DAILY [facility] Clopidogrel Bisulfate (Plavix) 75 mg PO DAILY [facility] Last Admin: 12/29/17 11:06 Dose: 75 mg Gabapentin (Neurontin) 400 mg PO AMPM [facility] Last Admin: 12/29/17 17:20 Dose: 400 mg Gabapentin (Neurontin) 800 mg PO HS [facility] Guaifenesin (Mucinex La) 600 mg PO BID [facility] Last Admin: 12/29/17 17:20 Dose: 600 mg Ceftriaxone Sodium 1 gm/ (Sodium Chloride) 100 mls @ 100 mls/hr IVPB DAILY [facility] PRN Reason: Protocol Last Admin: 12/29/17 11:10 Dose: 100 mls/hr Azithromycin (Zithromax 500mg In Ns Addvantage) 500 mg in 250 mls @ 167 mls/hr IVPB Q24H [facility] PRN Reason: Protocol Last Admin: 12/29/17 16:41 Dose: 167 mls/hr Insulin Aspart (Novolog) 0 unit SC ACHS [facility] PRN Reason: Protocol Last Admin: 12/29/17 16:40 Dose: 4 unit Insulin Glargine (Lantus) 20 unit SC HS [facility] Losartan Potassium (Cozaar) 100 mg PO DAILY [facility] Last Admin: 12/29/17 11:07 Dose: 100 mg Metformin HCl (Glucophage) 850 mg PO BIDCC [facility] Last Admin: 12/29/17 17:20 Dose: 850 mg Metoprolol Succinate (Toprol Xl) 50 mg PO DAILY [facility] Last Admin: 12/29/17 11:07 Dose: 50 mg Prednisone (Prednisone Tab) 30 mg PO DAILY [facility] Last Admin: 12/29/17 11:07 Dose: 30 mg Promethazine HCl/Codeine (Phenergan/Codeine Oral Syrup) 5 ml PO Q4 PRN PRN Reason: Cough Last Admin: 12/29/17 06:43 Dose: 5 ml Rosuvastatin Calcium (Crestor) 20 mg PO HS [facility] Last Admin: 12/28/17 22:07 Dose: 20 mg Sitagliptin Phosphate (Januvia) 100 mg PO DAILY [facility] Last Admin: 12/29/17 11:06 Dose: 100 mg - Labs Labs: 12/25/17 13:48 12/27/17 06:30 PT 11.6 SECONDS (9.7-12.2) 12/24/17 17:30 INR 1.0 12/24/17 17:30 APTT 33 SECONDS (21-34) D 12/25/17 13:48 Attending/Attestation - Attestation I have personally seen and examined this patient.: Yes I have fully participated in the care of the patient.: Yes I have reviewed all pertinent clinical information, including history, physical exam and plan: Yes
[2017-12-29] MEDS: Metoprolol Succinate 50 mg XL Tab PO SCH (11:07)
[2017-12-29] MEDS: guaiFENesin 600 mg ER Tab PO SCH ×2 (11:08→17:20)
--- NOTE | 2017-12-29 16:28 | CP.PCM.PN ---
Subjective - Date & Time of Evaluation Date of Evaluation: 12/29/17 Time of Evaluation: 11:00 - Subjective Subjective: Patient seen and examined at bedside. He reports that his shortness of breath is improved but that he had 2-3 episodes last night. Assessment and Plan: 1. COPD with acute bronchitis - Saturating 97% on RA - CT Chest/Abd/Pel 12/26: no pulmonary infiltrates - prednisone PO - IV rocephin/zithromax - nebulizer treatments - phenergan with codeine - mucinex 2. ACS - s/p cath - Dr. Lang on board - echo Objective - Vital Signs/Intake and Output Vital Signs (last 24 hours): Temp Pulse Resp BP Pulse Ox 97.4 F L 85 20 150/80 99 12/29/17 15:34 12/29/17 15:34 12/29/17 15:34 12/29/17 15:34 12/29/17 15:34 Intake and Output: 12/29/17 12/29/17 06:59 18:59 Intake Total 1110 Output Total 1200 1100 Balance -90 -1100 - Medications Medications: Current Medications Albuterol/Ipratropium (Duoneb 3 Mg/0.5 Mg (3 Ml) Ud) 3 ml INH RQ6 [facility] Last Admin: 12/29/17 13:09 Dose: 3 ml Amlodipine Besylate (Norvasc) 5 mg PO DAILY [facility] Clopidogrel Bisulfate (Plavix) 75 mg PO DAILY [facility] Last Admin: 12/29/17 11:06 Dose: 75 mg Gabapentin (Neurontin) 400 mg PO AMPM [facility] Last Admin: 12/29/17 11:08 Dose: 400 mg Gabapentin (Neurontin) 800 mg PO HS [facility] Guaifenesin (Mucinex La) 600 mg PO BID [facility] Ceftriaxone Sodium 1 gm/ (Sodium Chloride) 100 mls @ 100 mls/hr IVPB DAILY [facility] PRN Reason: Protocol Last Admin: 12/29/17 11:10 Dose: 100 mls/hr Azithromycin (Zithromax 500mg In Ns Addvantage) 500 mg in 250 mls @ 167 mls/hr IVPB Q24H [facility] PRN Reason: Protocol Last Admin: 12/28/17 17:00 Dose: 167 mls/hr Insulin Aspart (Novolog) 0 unit SC ACHS [facility] PRN Reason: Protocol Last Admin: 12/29/17 12:21 Dose: 10 unit Insulin Glargine (Lantus) 14 unit SC HS [facility] Last Admin: 12/28/17 22:08 Dose: 14 units Losartan Potassium (Cozaar) 100 mg PO DAILY [facility] Last Admin: 12/29/17 11:07 Dose: 100 mg Metformin HCl (Glucophage) 850 mg PO BIDCC [facility] Last Admin: 12/29/17 09:07 Dose: 850 mg Metoprolol Succinate (Toprol Xl) 50 mg PO DAILY [facility] Last Admin: 12/29/17 11:07 Dose: 50 mg Prednisone (Prednisone Tab) 30 mg PO DAILY [facility] Last Admin: 12/29/17 11:07 Dose: 30 mg Promethazine HCl/Codeine (Phenergan/Codeine Oral Syrup) 5 ml PO Q4 PRN PRN Reason: Cough Last Admin: 12/29/17 06:43 Dose: 5 ml Rosuvastatin Calcium (Crestor) 20 mg PO [facility] Last Admin: 12/28/17 22:07 Dose: 20 mg Sitagliptin Phosphate (Januvia) 100 mg PO DAILY [facility] Last Admin: 12/29/17 11:06 Dose: 100 mg - Labs Labs: 12/25/17 13:48 12/27/17 06:30 PT 11.6 SECONDS (9.7-12.2) 12/24/17 17:30 INR 1.0 12/24/17 17:30 APTT 33 SECONDS (21-34) D 12/25/17 13:48 Assessment and Plan (1) COPD (chronic obstructive pulmonary disease) with acute bronchitis Status: Acute
[2017-12-29] MEDS: Azithromycin 500mg/250ML NS 500 MG/250 ML BAG IVPB SCH (16:41)
[2017-12-29] MEDS ORDERED: (Lantus) Insulin Glargine, Recombinant SC SCH (22:00)
[2017-12-30] MEDS: Albuterol-Ipratrop 3 mg / 0.5 (3 ml) UD INH SCH ×3 (01:12→13:00)
[2017-12-30] MEDS: (Novolog) Insulin Aspart, Recombinant 100 u/ml 10 ml vial SC SCH ×2 (08:29→12:38)
[2017-12-30] MEDS: guaiFENesin 600 mg ER Tab PO SCH (09:24)
[2017-12-30] MEDS: Metoprolol Succinate 50 mg XL Tab PO SCH (09:24)
--- NOTE | 2017-12-30 10:22 | CP.PCM.PN ---
<Cheo Sofia - Last Filed: 12/30/17 14:57> Subjective - Date & Time of Evaluation Date of Evaluation: 12/30/17 Time of Evaluation: 09:40 - Subjective Subjective: Cardiology Progress Note Patient seen and examined at bedside. Patient also was walking today without any dyspnea or chest pain. Patient denies any chest pain, dyspnea, palpitations , fever or chills. Patient reports having soft, normal colored BM. Nurse reports no events overnight. Patient request when he can leave. Objective - Vital Signs/Intake and Output Vital Signs (last 24 hours): Temp Pulse Resp BP Pulse Ox 98.0 F 87 20 146/81 96 12/30/17 07:00 12/30/17 10:00 12/30/17 07:00 12/30/17 07:00 12/30/17 07:00 Intake and Output: 12/30/17 12/30/17 06:59 18:59 Intake Total 350 Balance 350 - Medications Medications: Current Medications Albuterol/Ipratropium (Duoneb 3 Mg/0.5 Mg (3 Ml) Ud) 3 ml INH RQ6 [facility] Last Admin: 12/30/17 07:18 Dose: 3 ml Amlodipine Besylate (Norvasc) 5 mg PO DAILY [facility] Clopidogrel Bisulfate (Plavix) 75 mg PO DAILY [facility] Last Admin: 12/30/17 09:22 Dose: 75 mg Gabapentin (Neurontin) 400 mg PO AMPM [facility] Last Admin: 12/30/17 09:41 Dose: 400 mg Gabapentin (Neurontin) 800 mg PO HS [facility] Last Admin: 12/29/17 22:27 Dose: Not Given Guaifenesin (Mucinex La) 600 mg PO BID [facility] Last Admin: 12/30/17 09:24 Dose: 600 mg Ceftriaxone Sodium 1 gm/ (Sodium Chloride) 100 mls @ 100 mls/hr IVPB DAILY [facility] PRN Reason: Protocol Last Admin: 12/30/17 09:22 Dose: 100 mls/hr Azithromycin (Zithromax 500mg In Ns Addvantage) 500 mg in 250 mls @ 167 mls/hr IVPB Q24H [facility] PRN Reason: Protocol Last Admin: 12/29/17 16:41 Dose: 167 mls/hr Insulin Aspart (Novolog) 0 unit SC ACHS [facility] PRN Reason: Protocol Last Admin: 12/30/17 08:29 Dose: 4 unit Insulin Glargine (Lantus) [address] [facility] Last Admin: 12/29/17 22:27 Dose: 20 units Losartan Potassium (Cozaar) 100 mg PO DAILY [facility] Last Admin: 12/30/17 09:23 Dose: 100 mg Metformin HCl (Glucophage) 850 mg PO BIDCC [facility] Last Admin: 12/30/17 08:28 Dose: 850 mg Metoprolol Succinate (Toprol Xl) 50 mg PO DAILY [facility] Last Admin: 12/30/17 09:24 Dose: 50 mg Prednisone (Prednisone Tab) 30 mg PO DAILY [facility] Last Admin: 12/30/17 09:22 Dose: 30 mg Promethazine HCl/Codeine (Phenergan/Codeine Oral Syrup) 5 ml PO Q4 PRN PRN Reason: Cough Last Admin: 12/29/17 22:23 Dose: 5 ml Rosuvastatin Calcium (Crestor) [address] [facility] Last Admin: 12/29/17 22:24 Dose: 20 mg Sitagliptin Phosphate (Januvia) 100 mg PO DAILY [facility] Last Admin: 12/30/17 09:22 Dose: 100 mg - Labs Labs: 12/25/17 13:48 12/27/17 06:30 PT 11.6 SECONDS (9.7-12.2) 12/24/17 17:30 INR 1.0 12/24/17 17:30 APTT 33 SECONDS (21-34) D 12/25/17 13:48 - Constitutional Appears: Well, Non-toxic - Head Exam Head Exam: ATRAUMATIC, NORMOCEPHALIC - Eye Exam Eye Exam: EOMI Additional comments: right lid lag - ENT Exam ENT Exam: Mucous Membranes Moist - Respiratory Exam Respiratory Exam: Clear to Ausculation Bilateral, NORMAL BREATHING PATTERN. absent: Accessory Muscle Use - Cardiovascular Exam Cardiovascular Exam: RRR, +S1, +S2 - GI/Abdominal Exam GI & Abdominal Exam: Soft, Normal Bowel Sounds. absent: Rebound - Extremities Exam Extremities Exam: Normal Capillary Refill. absent: Calf Tenderness, Pedal Edema - Neurological Exam Neurological Exam: Alert, CN II-XII Intact, Oriented x3 - Psychiatric Exam Psychiatric exam: Normal Affect, Normal Mood - Skin Skin Exam: Dry, Intact, Normal Color, Warm Assessment and Plan - Assessment and Plan (Free Text) Assessment: Assessment: 62 year old male with a past medical history significant for DM II, dyslipidemia, HIV untreated, HCV untreated, hypertension, active smoking, CAD with ROLAND stent placed on 08/20/17 in the mid left anterior descending artery who presents to [facility] with 4 days of cough, diarrhea, fever, chills, and chest pain. Upon further questioning patient reports having drenching night sweats and a new pulmonary opacification seen on two-view chest X-ray. CT chest , abdomen, and pelvis ordered to assess for underlying malignancy and for confirmation of left sided pneumonia. 1) Chest pain with elevated troponin likely secondary to demand ischemia in the setting of an active infection, likely brochitis/pneumonia - Left heart catheterization showed 60% stenosis in the proximal LAD, though FFR and IVUS were not ascertained due to facility incapabilities. If, however, patient develops break-through chest pain, will take to [facility] for cardiac cath to assess FFR and IVUS of the stenosed LAD. (these functions cannot be performed at [facility] unless there is a code heart) -Continue optimal medical therapy with aspirin, plavix, metoprolol, statin, and ARB. - repeat troponin I on 12/29 was 0.236 compared to 1.32 on 12/25; patient does not have any chest pain, BLUE, or palpitations. 2) New pulmonary opacification (observed on two-view chest x-ray) in a patient complaining new- onset drenching night sweats with a history of recurrent pneumonias, HIV, HCV, heavy alcohol and tobacco use - Non-contrast CT of chest, abdomen, and pelvis shows infiltrate in left posterior lung (best seen on axial images 62-70 with lung window). Otherwise, radiologist impression reads as no pulmonary infiltrate. No pulmonary mass. Mild splenomegaly. Sigmoid diverticulosis. Previously described bilateral small renal cortical cysts poorly demonstrated on noncontrast CT examination. 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 Otherwise unremarkable. Disposition: As of 12/30/17, patient is stable to discharge from a cardiac standpoint. Discharge instructions should include that if the patient develops break-through chest pain, he will need to contact Dr. Lang immediately and be taken to [facility] for cardiac cath to assess FFR and IVUS of the stenosed LAD. ( these functions cannot be performed at [facility] unless there is a code heart). As always, we will continue to follow with you while the patient is in-house. Patient is to follow up with Dr. Lang within the next week, or one week upon discharge. Case reviewed and discussed with attending physician. Dr. Lang. <Arsenio Lang - Last Filed: 01/01/18 13:45> Objective - Vital Signs/Intake and Output Vital Signs (last 24 hours): Temp Pulse Resp BP Pulse Ox 97.7 F 80 18 127/85 95 12/30/17 10:31 12/30/17 12:05 12/30/17 10:31 12/30/17 10:31 12/30/17 10:31 - Labs Labs: 12/25/17 13:48 12/27/17 06:30 PT 11.6 SECONDS (9.7-12.2) 12/24/17 17:30 INR 1.0 12/24/17 17:30 APTT 33 SECONDS (21-34) D 12/25/17 13:48 Attending/Attestation - Attestation I have personally seen and examined this patient.: Yes I have fully participated in the care of the patient.: Yes I have reviewed all pertinent clinical information, including history, physical exam and plan: Yes
[2017-12-30 10:33] VITALS: BP 127/85; RESP 18; TEMP 97.7; O2SAT 95
[2017-12-30 10:47] LABS: TB ANTIGEN MINUS NIL <0.00 IU/mL
--- NOTE | 2017-12-30 12:46 | CP.PCM.PN ---
Subjective - Date & Time of Evaluation Date of Evaluation: 12/30/17 Time of Evaluation: 10:00 - Subjective Subjective: Patient seen today, sob and cough improved, denies any chest pain, sob, dizziness, palpitations, N/V/D oob ambulating the hallway without sob No overnight events reported by RN Objective - Vital Signs/Intake and Output Vital Signs (last 24 hours): Temp Pulse Resp BP Pulse Ox 97.7 F 87 18 127/85 95 12/30/17 10:31 12/30/17 10:31 12/30/17 10:31 12/30/17 10:31 12/30/17 10:31 Intake and Output: 12/30/17 12/30/17 06:59 18:59 Intake Total 350 Balance 350 - Medications Medications: Current Medications Albuterol/Ipratropium (Duoneb 3 Mg/0.5 Mg (3 Ml) Ud) 3 ml INH RQ6 [facility] Last Admin: 12/30/17 07:18 Dose: 3 ml Amlodipine Besylate (Norvasc) 5 mg PO DAILY [facility] Clopidogrel Bisulfate (Plavix) 75 mg PO DAILY [facility] Last Admin: 12/30/17 09:22 Dose: 75 mg Gabapentin (Neurontin) 400 mg PO AMPM [facility] Last Admin: 12/30/17 09:41 Dose: 400 mg Gabapentin (Neurontin) 800 mg PO HS [facility] Last Admin: 12/29/17 22:27 Dose: Not Given Guaifenesin (Mucinex La) 600 mg PO BID [facility] Last Admin: 12/30/17 09:24 Dose: 600 mg Ceftriaxone Sodium 1 gm/ (Sodium Chloride) 100 mls @ 100 mls/hr IVPB DAILY [facility] PRN Reason: Protocol Last Admin: 12/30/17 09:22 Dose: 100 mls/hr Azithromycin (Zithromax 500mg In Ns Addvantage) 500 mg in 250 mls @ 167 mls/hr IVPB Q24H [facility] PRN Reason: Protocol Last Admin: 12/29/17 16:41 Dose: 167 mls/hr Insulin Aspart (Novolog) 0 unit SC ACHS [facility] PRN Reason: Protocol Last Admin: 12/30/17 12:38 Dose: 8 unit Insulin Glargine (Lantus) 20 unit SC HS [facility] Last Admin: 12/29/17 22:27 Dose: 20 units Losartan Potassium (Cozaar) 100 mg PO DAILY [facility] Last Admin: 12/30/17 09:23 Dose: 100 mg Metformin HCl (Glucophage) 850 mg PO BIDCC [facility] Last Admin: 12/30/17 08:28 Dose: 850 mg Metoprolol Succinate (Toprol Xl) 50 mg PO DAILY [facility] Last Admin: 12/30/17 09:24 Dose: 50 mg Prednisone (Prednisone Tab) 30 mg PO DAILY [facility] Last Admin: 12/30/17 09:22 Dose: 30 mg Promethazine HCl/Codeine (Phenergan/Codeine Oral Syrup) 5 ml PO Q4 PRN PRN Reason: Cough Last Admin: 12/29/17 22:23 Dose: 5 ml Rosuvastatin Calcium (Crestor) 20 mg PO HS [facility] Last Admin: 12/29/17 22:24 Dose: 20 mg Sitagliptin Phosphate (Januvia) 100 mg PO DAILY [facility] Last Admin: 12/30/17 09:22 Dose: 100 mg - Labs Labs: 12/25/17 13:48 12/27/17 06:30 PT 11.6 SECONDS (9.7-12.2) 12/24/17 17:30 INR 1.0 12/24/17 17:30 APTT 33 SECONDS (21-34) D 12/25/17 13:48 Assessment and Plan - Assessment and Plan (Free Text) Assessment: a/p 62 yr old male with pmhx of CAD, s/p stent , Diabetes, HTN, Hypercholesterolemia admitted with chest pain, dyspnea and cough and congestion NSTEMI/ acute bronchitis s/p cardiac cath - Left heart catheterization showed 60% stenosis in the proximal LAD with no need for PCI, and aggressive medical management clinically improved with steroids and neb treatment D/W Dr. Lang cleared fro discharge home today from cardiology stand point and f/u with Dr. Lang office in 1 week D/W Dr. Gordillo, stable for discharge home and f/u with Dr. Gordillo office in 1 week Discharge plan discussed with patient wh o understands and agrees with plan patient instructed to [place] [facility] [place] Dr. Lang if chest pain recur
[2017-12-30 14:22] VITALS: PULSE 80
--- NOTE | 2017-12-30 17:44 | CP.PCM.PN ---
Subjective - Date & Time of Evaluation Date of Evaluation: 12/30/17 Time of Evaluation: 11:45 - Subjective Subjective: Patient seen and examined at bedside. Pt has no complains today. Pt denies Fever, chills, SOB, chest pain, leg swelling, leg pain. On exam, lungs sound clear on auscultation bilaterally. Assessment and Plan: 1. COPD with acute bronchitis - Saturating 97% on RA - CT Chest/Abd/Pel 12/26: - prednisone PO - IV rocephin/zithromax - nebulizer treatments - phenergan with codeine Objective - Vital Signs/Intake and Output Vital Signs (last 24 hours): Temp Pulse Resp BP Pulse Ox 97.7 F 80 18 127/85 95 12/30/17 10:31 12/30/17 12:05 12/30/17 10:31 12/30/17 10:31 12/30/17 10:31 Intake and Output: 12/30/17 12/30/17 06:59 18:59 Intake Total 350 Balance 350 - Labs Labs: 12/25/17 13:48 12/27/17 06:30 PT 11.6 SECONDS (9.7-12.2) 12/24/17 17:30 INR 1.0 12/24/17 17:30 APTT 33 SECONDS (21-34) D 12/25/17 13:48 Assessment and Plan (1) COPD (chronic obstructive pulmonary disease) with acute bronchitis Status: Acute
--- NOTE | 2017-12-30 23:14 | CP.PCM.DIS ---
Provider - Provider Date of Admission: 12/24/17 18:06 Attending physician: Esau Gordillo MD Time Spent in preparation of Discharge (in minutes): 52 Diagnosis - Discharge Diagnosis (1) Acute chest pain Status: Acute (2) COPD (chronic obstructive pulmonary disease) with acute bronchitis Status: Acute Comment: Assessment and Plan: 1. COPD with acute bronchitis. - Saturating 97% on RA. - CT Chest/Abd/Pel 12/26: - prednisone PO. - IV rocephin/zithromax. - nebulizer treatments. - phenergan with codeine Hospital Course - Lab Results Lab Results: Most Recent Lab Values WBC 8.9 K/uL (4.8-10.8) 12/25/17 13:48 RBC 3.72 Mil/uL (4.40-5.90) L 12/25/17 13:48 Hgb 11.2 g/dL (12.0-18.0) L 12/25/17 13:48 Hct 31.7 % (35.0-51.0) L 12/25/17 13:48 MCV 85.4 fL (80.0-94.0) 12/25/17 13:48 MCH 30.1 pg (27.0-31.0) 12/25/17 13:48 MCHC 35.3 g/dL (33.0-37.0) 12/25/17 13:48 RDW 12.1 % (11.5-14.5) 12/25/17 13:48 Plt Count 302 K/uL (130-400) 12/25/17 13:48 MPV 8.3 fL (7.2-11.7) 12/25/17 13:48 Neut % (Auto) 80.2 % (50.0-75.0) H 12/24/17 16:30 Lymph % (Auto) 10.9 % (20.0-40.0) L 12/24/17 16:30 [place] % (Auto) 7.4 % (0.0-10.0) 12/24/17 16:30 Eos % (Auto) 0.9 % (0.0-4.0) 12/24/17 16:30 Baso % (Auto) 0.6 % (0.0-2.0) 12/24/17 16:30 Neut # (Auto) 6.5 K/uL (1.8-7.0) 12/24/17 16:30 Lymph # (Auto) 0.9 K/uL (1.0-4.3) L 12/24/17 16:30 [place] # (Auto) 0.6 K/uL (0.0-0.8) 12/24/17 16:30 Eos # (Auto) 0.1 K/uL (0.0-0.7) 12/24/17 16:30 Baso # (Auto) 0.0 K/uL (0.0-0.2) 12/24/17 16:30 PT 11.6 SECONDS (9.7-12.2) 12/24/17 17:30 INR 1.0 12/24/17 17:30 APTT 33 SECONDS (21-34) D 12/25/17 13:48 Sodium 129 mmol/L (132-148) L 12/27/17 06:30 Potassium 4.3 mmol/L (3.6-5.2) 12/27/17 06:30 Chloride 95 mmol/L (98-107) L 12/27/17 06:30 Carbon Dioxide 26 mmol/L (22-30) 12/27/17 06:30 Anion Gap 13 (10-20) 12/27/17 06:30 BUN 18 mg/dL (9-20) 12/27/17 06:30 Creatinine 0.7 mg/dL (0.8-1.5) L 12/27/17 06:30 Est GFR ( Amer) > 60 12/27/17 06:30 Est GFR (Non-Af Amer) > 60 12/27/17 06:30 POC Glucose (mg/dL) 386 mg/dL (65-110) H 12/30/17 11:16 Random Glucose 434 mg/dL (75-110) H* D 12/27/17 06:30 Hemoglobin A1c 10.9 % (4.2-6.5) H 12/27/17 06:30 Calcium 8.0 mg/dl (8.6-10.4) L 12/27/17 06:30 Total Bilirubin 0.6 mg/dL (0.2-1.3) 12/24/17 16:30 AST 27 U/L (17-59) 12/24/17 16:30 ALT 45 U/L (21-72) 12/24/17 16:30 Alkaline Phosphatase 107 U/L (38-126) 12/24/17 16:30 Total Creatine Kinase 42 U/L (55-170) L 12/25/17 13:48 CK-MB (Mass) 2.24 ng/mL (0.0-3.38) 12/25/17 13:48 Troponin I 0.2360 ng/mL (0.00-0.120) H* 12/29/17 11:50 Total Protein 7.6 g/dL (6.3-8.3) 12/24/17 16:30 Albumin 3.3 g/dL (3.5-5.0) L 12/24/17 16:30 Globulin 4.3 gm/dL (2.2-3.9) H 12/24/17 16:30 Albumin/Globulin Ratio 0.8 (1.0-2.1) L 12/24/17 16:30 Lipase 20 U/L (23-300) L 12/24/17 16:30 Urine Color Yellow (YELLOW) 12/25/17 13:53 Urine Clarity Clear (Clear) 12/25/17 13:53 Urine pH 5.0 (5.0-8.0) 12/25/17 13:53 Ur Specific [place] 1.028 (1.003-1.030) 12/25/17 13:53 Urine Protein 1+ mg/dL (NEGATIVE) H 12/25/17 13:53 Urine Glucose (UA) 3+ mg/dL (Normal) H 12/25/17 13:53 Urine Ketones Negative mg/dL (NEGATIVE) 12/25/17 13:53 Urine Blood 1+ (NEGATIVE) H 12/25/17 13:53 Urine Nitrate Negative (NEGATIVE) 12/25/17 13:53 Urine Bilirubin Negative (NEGATIVE) 12/25/17 13:53 Urine Urobilinogen 4.0 mg/dL (0.2-1.0) 12/25/17 13:53 Ur Leukocyte Esterase Neg [place]/uL (Negative) 12/25/17 13:53 Urine WBC (Auto) 1 /hpf (0-5) 12/25/17 13:53 Urine RBC (Auto) 6 /hpf (0-3) H 12/25/17 13:53 Ur Squamous Epith Cells < 1 /hpf (0-5) 12/25/17 13:53 TB Test (QFT) Nil 0.07 IU/mL 12/26/17 20:06 TB Test Mitogen - Nil 1.88 IU/mL 12/26/17 20:06 TB Test TB - Nil <0.00 IU/mL 12/26/17 20:06 TB Test (QFT) Negative (Negative) 12/26/17 20:06 - Hospital Course Hospital Course: Patient seen and examined at bedside. Pt has no complains today. Pt denies Fever, chills, SOB, chest pain, leg swelling, leg pain. On exam, lungs sound clear on auscultation bilaterally. Discharge Exam - Head Exam Head Exam: ATRAUMATIC, NORMOCEPHALIC Discharge Plan - Discharge Medications Prescriptions: Losartan Potassium [Cozaar] 1 tab PO DAILY #30 tablet metFORMIN [glucOPHAGE] 850 mg PO BIDCC #60 tab Insulin Lispro Mix 75/25 [HumaLog MIX 75/25] 18 units SC BID #1 vial SITagliptin [Januvia] 100 mg PO DAILY #30 tab Clopidogrel [Plavix] 1 tab PO DAILY #30 tab predniSONE [Prednisone] 20 mg PO DAILY #10 tab Simvastatin 1 tab PO QPM #30 tablet Metoprolol Succinate [Toprol XL] 50 mg PO DAILY #30 tab - Follow Up Plan Condition: STABLE Disposition: HOME/ ROUTINE Instructions: Heart Healthy Diet, Cardiac Catheterization (DC), Carbohydrate Counting Diet, Diabetes Diet , Chest Pain (DC), Exacerbation of COPD (DC) Additional Instructions: please follow up with Dr. Gordillo office in 1 week- call and make appointment Please follow up with Dr. aLng office in 1 week Please continue medication as per Med. rec. Please filler picker medication from pharmacy If you develop chest pain please returns to ED [place] PLEASE RADIO TELEVISION ANNOUNCER MEDICATION FROM PHARMACY- [facility] Referrals: Arsenio Lang MD [Staff Provider] - Esau Gordillo MD [Staff Provider] - 01/09/18 12:00 pm (appointment made for you, spoke with Kelsey)
--- NOTE | 2018-01-02 00:10 | CARDCATH ---
PROCEDURE DATE: 12/25/2017 INDICATION: Mr. Felice Schultz is a 62-year-old male with past medical history significant for CAD status post PTCA stenting, who presented with complaints of shortness of breath and atypical chest pain. He had positive cardiac troponins, and therefore, was brought to the laborer tree tapping for further evaluation and treatment for non-ST elevation OH. PROCEDURES PERFORMED: Left heart catheterization with selective left and right coronary angiogram, left ventriculogram wristband for radial access. TECHNIQUES OF PROCEDURE: After obtaining informed consent, the patient was brought to the cardiac catheterization suite in post-absorptive and non-sedated state. The patient was prepped and draped in the usual sterile fashion, 2% lidocaine was used for infiltration of anesthesia. Using modified Seldinger technique, a 6-[place] sheath was introduced into the left radial artery. Subsequently, over a J-wire, JR4 and JL4 diagnostic catheters were used to engage the left and right coronary system. Angiograms were obtained in different orthogonal views. At the end of the procedure, wrist band was deployed to achieve hemostasis. Right coronary artery large-sized vessel, has approximately 40% stenosis. Right dominant circulation, right PDA, mild nonobstructive 30% to 40% stenosis, PLV nonobstructive disease. Left ventricular ejection fraction estimated to be 60%. LVEDP was 13 mmHg. CORONARY ANATOMY: The left main is a large-sized vessel, bifurcates into left circumflex, obtuse marginal, and LAD. Left circumflex runs in the AV groove and has a high ramus intermedius branch which gives off inferior communicating branch, nonobstructive disease by mild lesions. Left circumflex proximal 40% stenosis. LAD has a proximal to mid 55% to 60% stenosis. Mid LAD stent is patent. Bifurcation of the LAD patent, diagonal branch has a mild 30% stenosis. IMPRESSION: Moderate left anterior descending stenosis proximal to the stent about 55% to 60%. RECOMMENDATIONS: Continue guideline-directed medical therapy. If patient has recurrent ischemic symptoms on maximum medical therapy, consider FFR guided PCI of proximal LAD. Arsenio Lang MD
== END 2017-12-30 14:15 | disposition home or self-care (01) | DRG 543 ==
LOC: C.ER 15:23 → C.9E 18:06 → C.6T 21:06
PROVIDERS: ADMIT Internal Medicine; ATTEND Internal Medicine
PROC: B2151ZZ Fluoroscopy of Left Heart using Low Osmolar Contrast (ICD-10-PCS; 2017-12-25)
PROC: B2111ZZ Fluoroscopy of Multiple Coronary Arteries using Low Osmolar Contrast (ICD-10-PCS; 2017-12-25)
PROC: 4A023N7 Measurement of Cardiac Sampling and Pressure, Left Heart, Percutaneous Approach (ICD-10-PCS; principal; 2017-12-25 07:30)
DX: I24.8 Other forms of acute ischemic heart disease (principal); J18.1 Lobar pneumonia, unspecified organism; B20 Human immunodeficiency virus [HIV] disease; J44.0 Chronic obstructive pulmonary disease with (acute) lower respiratory infection; B19.20 Unspecified viral hepatitis C without hepatic coma; J20.9 Acute bronchitis, unspecified; I25.10 Atherosclerotic heart disease of native coronary artery without angina pectoris; I10 Essential (primary) hypertension; E11.9 Type 2 diabetes mellitus without complications; E78.5 Hyperlipidemia, unspecified; E78.00 Pure hypercholesterolemia, unspecified; K57.30 Diverticulosis of large intestine without perforation or abscess without bleeding; F17.210 Nicotine dependence, cigarettes, uncomplicated; M43.16 Spondylolisthesis, lumbar region; Z95.5 Presence of coronary angioplasty implant and graft; Z87.01 Personal history of pneumonia (recurrent); Z86.73 Personal history of transient ischemic attack (TIA), and cerebral infarction without residual deficits

== ENCOUNTER 2018-08-09 19:18 | Inpatient (IN) | payer OTHER ==
[2018-08-09 19:18] VITALS: BMI 25.2
--- NOTE | 2018-08-09 19:42 | C.PDOC ---
History Of Present Illness 63 year old male presents to the ED [facility]IB[facility] for evaluation of worsening shortness of breath ongoing for one week. Denies any fever, chills, chest pain, palpitations, nausea, vomiting. Reports he quit smoking last month. Time Seen by Provider: 08/09/18 19:41 Chief Complaint (Nursing): Shortness Of Breath History Per: Patient, EMS History/Exam Limitations: no limitations Onset/Duration Of Symptoms: Days Current Symptoms Are (Timing): Still Present Past Medical History Reviewed: Historical Data, Nursing Documentation, Vital Signs Vital Signs: Last Vital Signs Temp 97.9 F 08/09/18 19:34 Pulse 82 08/09/18 19:34 Resp 20 08/09/18 19:34 BP 132/85 08/09/18 19:34 Pulse Ox 96 08/09/18 19:34 - Medical History PMH: Arthritis, CAD, Diabetes, HIV (undetectable), HTN, Hypercholesterolemia Denies: Chronic Kidney Disease Surgical History: Coronary Stent (cardiac cath with stent placement) Denies: Pacemaker - [facility] Procedures DILATION OF 1 COR ART WITH DRUG-ELUT INTRA, PERC APPROACH (08/16/17) FLUOROSCOPY OF LEFT HEART USING LOW OSMOLAR CONTRAST (12/24/17) FLUOROSCOPY OF MULT COR ART USING L OSM CONTRAST (12/24/17) FLUOROSCOPY OF RIGHT AND LEFT HEART USING L OSM CONTRAST (08/16/17) MEASURE OF CARDIAC SAMPL & PRESSURE, L HEART, PERC APPROACH (12/24/17) MEASUREMENT OF ARTERIAL PRESSURE, CORONARY, PERC APPROACH (08/16/17) ULTRASONOGRAPHY OF RIGHT AND LEFT HEART, TRANSESOPHAGEAL (09/10/16) Family History: States: Diabetes, Hypertension - Social History Hx Tobacco Use: Yes (1/2 pack daily) Hx Alcohol Use: No Hx Substance Use: No - Immunization History Hx Tetanus Toxoid Vaccination: No Hx Influenza Vaccination: No Hx Pneumococcal Vaccination: No Review Of Systems Constitutional: Negative for: Fever, Chills Cardiovascular: Negative for: Chest Pain, Palpitations Respiratory: Positive for: Shortness of Breath. Negative for: Wheezing Gastrointestinal: Negative for: Nausea, Vomiting Physical Exam - Physical Exam Appears: Non-toxic, No Acute Distress Skin: Warm, Dry, Rash Head: Normacephalic Eye(s): bilateral: Normal Inspection Nose: Normal Oral Mucosa: Moist Neck: Supple Chest: Symmetrical Cardiovascular: Rhythm Regular Respiratory: Rhonchi (scattered ), No Stridor, No Wheezing Gastrointestinal/Abdominal: Soft, No Tenderness Extremity: No Pedal Edema Extremity: Bilateral: Atraumatic, Normal Color And Temperature, Normal ROM Neurological/Psych: Oriented x3, Normal Speech Gait: Steady ED Course And Treatment - Laboratory Results Result Diagrams: 08/09/18 19:48 08/09/18 19:48 ECG: Interpreted By Me, Viewed By Me ECG Rhythm: Nonspecific Changes O2 Sat by Pulse Oximetry: 96 (RA) Pulse Ox Interpretation: Normal Progress Note: EKG and CXR ordered. Blood and urine collected and sent to the lab for analysis. Patient given nebulizer treatment. Disposition Discussed With Dr.: Esau Gordillo Comment: accepted the patient and took over the care at 9:09 PM Doctor Will See Patient In The: Hospital Counseled Patient/Family Regarding: Studies Performed, Diagnosis - Disposition Disposition: HOSPITALIZED Disposition Time: 19:41 Condition: FAIR Forms: [facility] (Kyrgyz) - POA Present On Arrival: Poor Glycemic Control - Clinical Impression Clinical Impression: Dyspnea, CHF (congestive heart failure) - Scribe Statement The provider has reviewed the documentation as recorded by the Scribe Kianna Dong All medical record entries made by the Scribe were at my direction and personally dictated by me. I have reviewed the chart and agree that the record accurately reflects my personal performance of the history, physical exam, medical decision making, and the department course for this patient. I have also personally directed, reviewed, and agree with the discharge instructions and disposition. Decision To Admit - Pt Status Changed To: Hospital Disposition Of: Inpatient - Admit Certification Admit to Inpatient:: After my assessment, the patient will require hospitalization for at least two midnights. This is because of the severity of symptoms shown, intensity of services needed, and/or the medical risk in this patient being treated as an outpatient. - InPatient: Physician Admission Certification: I certify that this patient requires 2 or more midnights of care for the following reason:: After my assessment, the patient will require hospitalization for at least two midnights. This is because of the severity of symptoms shown, intensity of services needed, and/or the medical risk in this patient being treated as an outpatient. - . Bed Request Type: Telemetry Admitting Physician: Esau Gordillo Patient Diagnosis: Dyspnea, CHF (congestive heart failure)
[2018-08-09 19:54] LABS: BASO % 0.5 % (0.0-2.0); EOS # 0.1 K/uL (0.0-0.7); HEMOGLOBIN 10.8 g/dL (12.0-18.0); LYMPH % 17.7 % (20.0-40.0); MEAN CELL VOLUME 85.4 fL (80.0-94.0); MEAN CORPUSCULAR HEMOGLOBIN 29.2 pg (27.0-31.0); MEAN CORPUSCULAR HGB CONC 34.2 g/dL (33.0-37.0); MEAN PLATELET VOLUME 8.1 fL (7.2-11.7); MONO # 0.4 K/uL (0.0-0.8); MONO % 7.6 % (0.0-10.0); NEUT # 4.3 K/uL (1.8-7.0); NEUT % 73.2 % (50.0-75.0); RBC 3.68 Mil/uL (4.40-5.90); RED CELL DISTRIBUTION WIDTH 13.2 % (11.5-14.5); WHITE BLOOD COUNT 5.9 K/uL (4.8-10.8)
[2018-08-09 20:04] LABS: ALB/GLOB RATIO 0.9 (1.0-2.1); ALBUMIN 3.1 g/dL (3.5-5.0); ALT/SGPT 40 U/L (21-72); AST/SGOT 24 U/L (17-59); BLOOD UREA NITROGEN 21 mg/dL (9-20); CALCIUM 8.3 mg/dl (8.6-10.4); GFR NON-AFRICAN AMERICAN > 60
[2018-08-09] MEDS ORDERED: Albuterol-Ipratrop 3 mg / 0.5 (3 ml) UD ONE (20:06)
[2018-08-09 20:09] LABS: INR 1.1
[2018-08-09 20:22] LABS: ARTERIAL BLOOD GAS HCO3 24.4 mmol/L (21-28); ARTERIAL BLOOD GAS O2 SAT 98.5 % (95-98); ARTERIAL BLOOD GAS PCO2 35 mm/Hg (35-45); ARTERIAL BLOOD GAS PH 7.43 (7.35-7.45); ARTERIAL BLOOD GAS PO2 82 mm/Hg (80-100); ARTERIAL BLOOD GAS TCO2 24.3 mmol/L (22-28)
[2018-08-09 20:56] LABS: TROPONIN I 0.024 ng/mL (0.00-0.120)
[2018-08-09 21:02] LABS: SQUAMOUS EPITHIAL < 1 /hpf (0-5); URINE BILIRUBIN 1+ (NEGATIVE); URINE BLOOD 2+ (NEGATIVE); URINE CLARITY Clear (Clear); URINE COLOR Yellow (YELLOW); URINE GLUCOSE (UA) NORMAL (Normal); URINE LEUKOCYTE ESTERASE NEG Leu/uL (Negative); URINE PROTEIN 2+ mg/dL (NEGATIVE)
[2018-08-09] MEDS: Albuterol-Ipratrop 3 mg / 0.5 (3 ml) UD IH SCH (21:06)
[2018-08-09] MEDS: (Novolin R) Insulin Human Regular 100 units/ml vial SC SCH (23:59)
[2018-08-10 02:52] LABS: CK-MB 1.55 ng/mL (0.0-3.38); TROPONIN I 0.022 ng/mL (0.00-0.120)
[2018-08-10] MEDS: (Novolin R) Insulin Human Regular 100 units/ml vial SC SCH ×3 (07:49→19:26)
--- NOTE | 2018-08-10 09:30 | RAD ---
Date of service: 08/09/2018 PROCEDURE: CHEST RADIOGRAPH, 1 VIEW HISTORY: SOB COMPARISON: 12/24/2017. FINDINGS: LUNGS: There are low lung volumes there is moderate pulmonary venous congestion there is bibasilar atelectasis PLEURA: No pneumothorax. Bilateral small effusions with CARDIOVASCULAR: The heart is normal in size. No aortic atherosclerotic calcifications present. OSSEOUS STRUCTURES: Within normal limits for the patient's age. VISUALIZED UPPER ABDOMEN: Normal. OTHER FINDINGS: None. IMPRESSION: Findings are consistent with moderate congestive heart failure.
--- NOTE | 2018-08-10 09:46 | CARD ---
APPROVED REPORT Date of service: 08/09/2018 EKG Measurement Heart [id number] <Conclusion> Normal sinus rhythm Possible Left atrial enlargement Nonspecific T wave abnormality Abnormal ECG
[2018-08-10] MEDS: Metoprolol Succinate 50 mg XL Tab PO SCH (10:21)
[2018-08-10] MEDS: Enoxaparin 40 mg Syringe SC SCH (10:25)
[2018-08-10 11:42] LABS: CK-MB 1.48 ng/mL (0.0-3.38); TROPONIN I 0.019 ng/mL (0.00-0.120)
--- NOTE | 2018-08-10 11:51 | CP.PCM.CON ---
<Bri Purdy - Last Filed: 08/10/18 15:15> History of Present Illness - History of Present Illness History of Present Illness: Cardiology Consult Note This is a 63 year old male with past medical history of hypertension, type 2 diabetes, dyslipidemia, CAD with ROLAND stent placed on 08/20/17 in the mid left anterior descending artery, s/p cardiac cath 12/2017 for NSTEMI (60% stenosis proximal LAD), diastolic heart failure (LVEF 55% 11/2017) tobacco use disorder, HIV untreated, HCV untreated who was admitted for worsening dyspnea, referred to our service by Dr. Gordillo. Patient reports for the past month he started to experience dyspnea on exertion, unable to ambulate more than 1/2 a block, unable to lie down flat, non-productive cough, and increased fatigue. He states he has stopped drinking and smoking since his symptoms started 1 month ago. Admitted to shortness of breath, especially when ambulating to the bathroom. Denied any associated fever, chills, chest pain, palpitations, nausea, vomiting, abdominal pain, or urinary symptoms. PMHx: As noted above PSHx: PCI placement All: NKDA SHx: current tobacco user 40 pack year history, former ETOH abuse, sober past 5 years, denies illicit drug use FHx: mother with heart disease and diabetes Review of Systems - Constitutional Constitutional: Fatigue. absent: Chills, Fever, Weakness - EENT Eyes: absent: Blurred Vision, Change in Vision Ears: absent: Tinnitus, Dizziness Nose/Mouth/Throat: absent: Nasal Congestion, Nasal Discharge, Sore Throat - Cardiovascular Cardiovascular: Dyspnea, Dyspnea on Exertion. absent: Chest Pain, Chest Pain at Rest, Chest Pain with Activity, Diaphoresis, Pedal Edema - Respiratory Respiratory: Cough, Dyspnea on Exertion. absent: Chest Congestion, Excessive Mucous Production, Change in Mucous Color - Gastrointestinal Gastrointestinal: absent: Abdominal Pain, Diarrhea, Nausea, Vomiting - Genitourinary Genitourinary: absent: Dysuria, Hematuria - Musculoskeletal Musculoskeletal: absent: Back Pain, Muscle Weakness, Numbness - Neurological Neurological: absent: Abnormal Gait, Dizziness, Numbness, Syncope, Weakness - Psychiatric Psychiatric: absent: Anxiety, Depression, Homicidal Ideation, Suicidal Ideation - Hematologic/Lymphatic Hematologic: absent: Easy Bleeding, Easy Bruising, Lymphadenopathy Past Patient History - Infectious Disease Hx of Infectious Diseases: None - Past Medical History & Family History Past Medical History?: Yes - Past Social History Smoking Status: Former Smoker - CARDIAC Hx Hypercholesterolemia: Yes Hx Hypertension: Yes Hx Pacemaker: No - PULMONARY Hx Respiratory Disorders: Yes Hx Bronchitis: Yes - NEUROLOGICAL Hx Neurological Disorder: No HX Cerebrovascular Accident: No - HEENT Hx HEENT Problems: No - RENAL Hx Chronic Kidney Disease: No - ENDOCRINE/METABOLIC Hx Endocrine Disorders: Yes Hx Diabetes Mellitus Type 2: Yes - HEMATOLOGICAL/ONCOLOGICAL Hx Human Immunodeficiency Virus (HIV): Yes (undetectable) - INTEGUMENTARY Hx Dermatological Problems: No - MUSCULOSKELETAL/RHEUMATOLOGICAL Hx Arthritis: Yes Hx Falls: No - GASTROINTESTINAL Hx Gastrointestinal Disorders: No - GENITOURINARY/GYNECOLOGICAL Hx Genitourinary Disorders: No - PSYCHIATRIC Hx Substance Use: No - SURGICAL HISTORY Hx Coronary Stent: Yes (cardiac cath with stent placement) Hx Orthopedic Surgery: Yes (Left arm surgery) - ANESTHESIA Hx Anesthesia: Yes Hx Anesthesia Reactions: No Hx Malignant Hyperthermia: No Meds Allergies/Adverse Reactions: Allergies Allergy/AdvReac Type Severity Reaction Status Date / Time No Known Allergies Allergy Verified 08/09/18 19:39 - Medications Medications: Current Medications Acetaminophen (Tylenol 325mg Tab) 650 mg PO Q6 PRN PRN Reason: Pain, moderate (4-7) Last Admin: 08/10/18 02:07 Dose: 650 mg Albuterol/Ipratropium (Duoneb 3 Mg/0.5 Mg (3 Ml) Ud) 3 ml INH RQ6 NILAM Amlodipine Besylate (Norvasc) 10 mg PO DAILY [facility] Last Admin: 08/10/18 11:46 Dose: 10 mg Clopidogrel Bisulfate (Plavix) 75 mg PO DAILY [facility] Last Admin: 08/10/18 10:21 Dose: 75 mg Enoxaparin Sodium (Lovenox) 40 mg SC DAILY [facility] Last Admin: 08/10/18 10:25 Dose: 40 mg Gabapentin (Neurontin) 400 mg PO QAM [facility] Last Admin: 08/10/18 10:21 Dose: 400 mg Gabapentin (Neurontin) 800 mg PO QPM [facility] Influenza Virus Vaccine (Fluzone Quad [id number]) 60 mcg IM .ONCE ONE Stop: 08/11/18 12:01 Insulin Aspart (Novolog Mix 70/30 (70/30 Units/Ml)) 18 units SC ACBD [facility] Insulin Human Regular (Novolin R) 0 unit SC ACHS [facility]; Protocol Last Admin: 08/10/18 07:49 Dose: Not Given Losartan Potassium (Cozaar) 100 mg PO DAILY [facility] Last Admin: 08/10/18 10:21 Dose: 100 mg Metformin HCl (Glucophage) 850 mg PO BIDCC [facility] Last Admin: 08/10/18 08:41 Dose: 850 mg Metoprolol Succinate (Toprol Xl) 50 mg PO DAILY [facility] Last Admin: 08/10/18 10:21 Dose: 50 mg Pneumococcal Polyvalent Vaccine (Pneumovax 23 Vaccine) 0.5 ml IM .ONCE ONE Stop: 08/11/18 12:01 Rosuvastatin Calcium (Crestor) 5 mg PO [facility] Sitagliptin Phosphate (Januvia) 100 mg PO DAILY [facility] Last Admin: 08/10/18 10:21 Dose: 100 mg Physical Exam - Constitutional Appears: No Acute Distress, Older Than Stated Age - Head Exam Head Exam: NORMAL INSPECTION, NORMOCEPHALIC - Eye Exam Eye Exam: EOMI, Normal appearance, PERRL Pupil Exam: NORMAL ACCOMODATION - ENT Exam ENT Exam: Mucous Membranes Moist - Respiratory Exam Respiratory Exam: Decreased Breath Sounds, Rales - Cardiovascular Exam Cardiovascular Exam: +S1, +S2. absent: Irregular Rhythm, Systolic Murmur - GI/Abdominal Exam GI & Abdominal Exam: Normal Bowel Sounds, Soft. absent: Distended, Tenderness - Extremities Exam Extremities exam: Positive for: normal inspection, pedal pulses present. Negative for: pedal edema, tenderness - Neurological Exam Neurological exam: Alert, CN II-XII Intact, Oriented x3 - Psychiatric Exam Psychiatric exam: Normal Affect, Normal Mood - Skin Skin Exam: Dry, Intact, Normal Color, Warm Results - Vital Signs Recent Vital Signs: Last Vital Signs Temp 97.3 F L 08/10/18 07:34 Pulse 88 08/10/18 09:00 Resp 22 08/10/18 08:15 BP 125/70 08/10/18 07:34 Pulse Ox 100 08/10/18 07:34 - Labs Result Diagrams: 08/09/18 19:48 08/09/18 19:48 Labs: Laboratory Results - last 24 hr 08/09/18 08/09/18 08/09/18 19:48 19:48 19:48 WBC 5.9 RBC 3.68 L Hgb 10.8 L Hct 31.4 L MCV 85.4 MCH 29.2 MCHC 34.2 RDW 13.2 Plt Count 193 D MPV 8.1 Neut % (Auto) 73.2 Lymph % (Auto) 17.7 L [place] % (Auto) 7.6 Eos % (Auto) 1.0 Baso % (Auto) 0.5 Neut # (Auto) 4.3 Lymph # (Auto) 1.0 [place] # (Auto) 0.4 Eos # (Auto) 0.1 Baso # (Auto) 0.0 PT 12.0 INR 1.1 APTT 31 Puncture Site pCO2 pO2 HCO3 ABG pH ABG Total CO2 ABG O2 Saturation ABG Base Excess Moises Test ABG Potassium Glucose Lactate Sodium 134 Potassium 4.2 Chloride 103 Carbon Dioxide 24 Anion Gap 12 BUN 21 H Creatinine 0.8 Est GFR ( Amer) > 60 Est GFR (Non-Af Amer) > 60 POC Glucose (mg/dL) Random Glucose 188 H Calcium 8.3 L Total Bilirubin 0.5 AST 24 ALT 40 Alkaline Phosphatase 75 Total Creatine Kinase CK-MB (Mass) Troponin I NT-Pro-B Natriuret Pep Total Protein 6.4 Albumin 3.1 L Globulin 3.3 Albumin/Globulin Ratio 0.9 L Arterial Blood Potassium Urine Color Urine Clarity Urine pH Ur Specific [place] Urine Protein Urine Glucose (UA) Urine Ketones Urine Blood Urine Nitrate Urine Bilirubin Urine Urobilinogen Ur Leukocyte Esterase Urine WBC (Auto) Urine RBC (Auto) Ur Squamous Epith Cells Hyaline Casts Influenza Typ A,B (EIA) 08/09/18 08/09/18 08/09/18 19:48 20:04 20:18 WBC RBC Hgb Hct MCV MCH MCHC RDW Plt Count MPV Neut % (Auto) Lymph % (Auto) [place] % (Auto) Eos % (Auto) Baso % (Auto) Neut # (Auto) Lymph # (Auto) [place] # (Auto) Eos # (Auto) Baso # (Auto) PT INR APTT Puncture Site Rb pCO2 35 pO2 82 HCO3 24.4 ABG pH 7.43 ABG Total CO2 24.3 ABG O2 Saturation 98.5 H ABG Base Excess -0.6 Moises Test Na ABG Potassium 3.9 Glucose 187 H Lactate 0.8 Sodium 138.0 Potassium Chloride 108.0 H Carbon Dioxide Anion Gap BUN Creatinine Est GFR ( Amer) Est GFR (Non-Af Amer) POC Glucose (mg/dL) Random Glucose Calcium Total Bilirubin AST ALT Alkaline Phosphatase Total Creatine Kinase CK-MB (Mass) Troponin I 0.0240 NT-Pro-B Natriuret Pep 3450 H Total Protein Albumin Globulin Albumin/Globulin Ratio Arterial Blood Potassium 3.9 Urine Color Urine Clarity Urine pH Ur Specific [place] Urine Protein Urine Glucose (UA) Urine Ketones Urine Blood Urine Nitrate Urine Bilirubin Urine Urobilinogen Ur Leukocyte Esterase Urine WBC (Auto) Urine RBC (Auto) Ur Squamous Epith Cells Hyaline Casts Influenza Typ A,B (EIA) Negative for flu a/b 08/09/18 08/09/18 08/10/18 20:48 23:59 02:25 WBC RBC Hgb Hct MCV MCH MCHC RDW Plt Count MPV Neut % (Auto) Lymph % (Auto) [place] % (Auto) Eos % (Auto) Baso % (Auto) Neut # (Auto) Lymph # (Auto) [place] # (Auto) Eos # (Auto) Baso # (Auto) PT INR APTT Puncture Site pCO2 pO2 HCO3 ABG pH ABG Total CO2 ABG O2 Saturation ABG Base Excess Moises Test ABG Potassium Glucose Lactate Sodium Potassium Chloride Carbon Dioxide Anion Gap BUN Creatinine Est GFR ( Amer) Est GFR (Non-Af Amer) POC Glucose (mg/dL) 160 H Random Glucose Calcium Total Bilirubin AST ALT Alkaline Phosphatase Total Creatine Kinase 38 L CK-MB (Mass) 1.55 Troponin I 0.0220 NT-Pro-B Natriuret Pep Total Protein Albumin Globulin Albumin/Globulin Ratio Arterial Blood Potassium Urine Color Yellow Urine Clarity Clear Urine pH 5.0 Ur Specific [place] 1.023 Urine Protein 2+ H Urine Glucose (UA) Normal Urine Ketones Negative Urine Blood 2+ H Urine Nitrate Negative Urine Bilirubin 1+ H Urine Urobilinogen 2.0 Ur Leukocyte Esterase Neg Urine WBC (Auto) 5 Urine RBC (Auto) 25 H Ur Squamous Epith Cells < 1 Hyaline Casts 6-10 H Influenza Typ A,B (EIA) 08/10/18 08/10/18 07:48 11:02 WBC RBC Hgb Hct MCV MCH MCHC RDW Plt Count MPV Neut % (Auto) Lymph % (Auto) [place] % (Auto) Eos % (Auto) Baso % (Auto) Neut # (Auto) Lymph # (Auto) [place] # (Auto) Eos # (Auto) Baso # (Auto) PT INR APTT Puncture Site pCO2 pO2 HCO3 ABG pH ABG Total CO2 ABG O2 Saturation ABG Base Excess Moises Test ABG Potassium Glucose Lactate Sodium Potassium Chloride Carbon Dioxide Anion Gap BUN Creatinine Est GFR ( Amer) Est GFR (Non-Af Amer) POC Glucose (mg/dL) 121 H Random Glucose Calcium Total Bilirubin AST ALT Alkaline Phosphatase Total Creatine Kinase 61 CK-MB (Mass) 1.48 Troponin I 0.0190 NT-Pro-B Natriuret Pep Total Protein Albumin Globulin Albumin/Globulin Ratio Arterial Blood Potassium Urine Color Urine Clarity Urine pH Ur Specific [place] Urine Protein Urine Glucose (UA) Urine Ketones Urine Blood Urine Nitrate Urine Bilirubin Urine Urobilinogen Ur Leukocyte Esterase Urine WBC (Auto) Urine RBC (Auto) Ur Squamous Epith Cells Hyaline Casts Influenza Typ A,B (EIA) Assessment & Plan - Assessment and Plan (Free Text) Plan: Dyspnea Acute on Chronic Diastolic Dysfunction Risk Factors: Hypertension, Type 2 diabetes, Dyslipidemia, Diastolic Heart Failure CAD with ROLAND stent placed on 08/20/17 in the mid LAD, Tobacco use disorder Imaging: - EKG: NSR @ 90 BPM - On admission: BNP: 3450 - 11/2017 ECHO: diastolic heart failure, LVEF 55% - S/P cardiac cath 12/2017 for NSTEMI (60% stenosis proximal LAD) - Repeat ECHO: ordered, pending results Management: - GINNY x 3 - normal - Continue ASA, Plavix, Metoprolol, Cozaar, Crestor - Started Lasix 40mg IVP daily Case discussed with Bri Boggs DO, PGY2 <Ghulam Godfrey - Last Filed: 08/10/18 22:16> Meds - Medications Medications: Current Medications Acetaminophen (Tylenol 325mg Tab) 650 mg PO Q6 PRN PRN Reason: Pain, moderate (4-7) Last Admin: 08/10/18 02:07 Dose: 650 mg Albuterol/Ipratropium (Duoneb 3 Mg/0.5 Mg (3 Ml) Ud) 3 ml INH RQ6 NILAM Last Admin: 08/10/18 19:40 Dose: 3 ml Amlodipine Besylate (Norvasc) 5 mg PO DAILY [facility] Aspirin (Aspirin Chewable) 81 mg PO DAILY [facility] Clopidogrel Bisulfate (Plavix) 75 mg PO DAILY [facility] Last Admin: 08/10/18 10:21 Dose: 75 mg Enoxaparin Sodium (Lovenox) 40 mg SC DAILY [facility] Last Admin: 08/10/18 10:25 Dose: 40 mg Furosemide (Lasix) 40 mg IVP DAILY [facility] Last Admin: 08/10/18 12:41 Dose: 40 mg Gabapentin (Neurontin) 400 mg PO QAM [facility] Last Admin: 08/10/18 10:21 Dose: 400 mg Gabapentin (Neurontin) 800 mg PO QPM [facility] Last Admin: 08/10/18 20:53 Dose: 800 mg Influenza Virus Vaccine (Fluzone Quad [id number]) 60 mcg IM .ONCE ONE Stop: 08/11/18 12:01 Insulin Aspart (Novolog Mix 70/30 (70/30 Units/Ml)) 18 units SC ACBD [facility] Last Admin: 08/10/18 18:57 Dose: 18 units Insulin Human Regular (Novolin R) 0 unit SC [facility]; Protocol Last Admin: 08/10/18 19:26 Dose: Not Given Losartan Potassium (Cozaar) 100 mg PO DAILY [facility] Last Admin: 08/10/18 10:21 Dose: 100 mg Met[facility] ([facility]) [facility] Last Admin: 08/10/18 18:56 Dose: 850 mg Metoprolol Succinate (Toprol Xl) 50 mg PO DAILY [facility] Last Admin: 08/10/18 10:21 Dose: 50 mg Pneumococcal Polyvalent Vaccine (Pneumovax 23 Vaccine) 0.5 ml IM .ONCE ONE Stop: 08/11/18 12:01 Rosuvastatin Calcium (Crestor) 5 mg PO HS [facility] Last Admin: 08/10/18 21:42 Dose: 5 mg Sitagliptin Phosphate (Januvia) 100 mg PO DAILY [facility] Last Admin: 08/10/18 10:21 Dose: 100 mg Results - Vital Signs Recent Vital Signs: Last Vital Signs Temp 97.7 F 08/10/18 15:48 Pulse 81 08/10/18 17:37 Resp 20 08/10/18 15:48 BP 120/70 08/10/18 15:48 Pulse Ox 99 08/10/18 15:48 - Labs Result Diagrams: 08/09/18 19:48 08/09/18 19:48 Labs: Laboratory Results - last 24 hr 08/09/18 08/10/18 08/10/18 23:59 02:25 07:48 POC Glucose (mg/dL) 160 H 121 H Total Creatine Kinase 38 L CK-MB (Mass) 1.55 Troponin I 0.0220 08/10/18 08/10/18 08/10/18 11:02 12:19 16:07 POC Glucose (mg/dL) 137 H 113 H Total Creatine Kinase 61 CK-MB (Mass) 1.48 Troponin I 0.0190 08/10/18 21:15 POC Glucose (mg/dL) 97 Total Creatine Kinase CK-MB (Mass) Troponin I Assessment & Plan - Assessment and Plan (Free Text) Plan: Patient seen and evaluated in person by me. Plan of care d/w the medical device assembler and as documented
[2018-08-10] MEDS: Albuterol-Ipratrop 3 mg / 0.5 (3 ml) UD INH SCH ×2 (14:05→19:40)
--- NOTE | 2018-08-10 18:01 | CP.PCM.CON ---
History of Present Illness - History of Present Illness History of Present Illness: Reason for consultation: shortness of breath HPI: 63 year old male with history of CAD presented to the emergency room complaining of worsening SOB x1 week and chest tightness. PMH: coronary stent, CAD, arthritis, HIV (undetectable), HTN, hypercholesterolemia. FHx: diabetes, HTN Social Hx: Smoked 1/2 pack daily but claims he quit 1 month ago. Denies alcohol or other substance use. Allergies: NKDA Meds: Losartan 100mg PO daily, albuterol/ipratropium 3 ml INH RQ6, Norvasc 10 mg PO daily, Plavix 75 mg PO daily, Lovenox 40 mg daily, Lasix 40 mg IVP daily, Metoprolol succinate 50 mg PO daily, Metformin 850 mg PO BID, Crestor PO HS, Januvia 100 mg PO daily ROS: Denies palpitations, nausea, vomiting. Chest X-ray 08/09: showed low lung volumes with moderate pulmonary venous congestion and bilateral atelectasis. Small bilateral effusions. Finding consistent with moderate CHF. EKG showed normal sinus rhythm, possible left atrial enlargement & nonspecific T wave abnormalities. Abnormal ECG. Review of Systems - Review of Systems All systems: reviewed and no additional remarkable complaints except (shortness of breath) Past Patient History - Infectious Disease Hx of Infectious Diseases: None - Past Medical History & Family History Past Medical History?: Yes - Past Social History Smoking Status: Former Smoker - CARDIAC Hx Hypercholesterolemia: Yes Hx Hypertension: Yes Hx Pacemaker: No - PULMONARY Hx Respiratory Disorders: Yes Hx Bronchitis: Yes - NEUROLOGICAL Hx Neurological Disorder: No HX Cerebrovascular Accident: No - HEENT Hx HEENT Problems: No - RENAL Hx Chronic Kidney Disease: No - ENDOCRINE/METABOLIC Hx Endocrine Disorders: Yes Hx Diabetes Mellitus Type 2: Yes - HEMATOLOGICAL/ONCOLOGICAL Hx Human Immunodeficiency Virus (HIV): Yes (undetectable) - INTEGUMENTARY Hx Dermatological Problems: No - MUSCULOSKELETAL/RHEUMATOLOGICAL Hx Arthritis: Yes Hx Falls: No - GASTROINTESTINAL Hx Gastrointestinal Disorders: No - GENITOURINARY/GYNECOLOGICAL Hx Genitourinary Disorders: No - PSYCHIATRIC Hx Substance Use: No - SURGICAL HISTORY Hx Coronary Stent: Yes (cardiac cath with stent placement) Hx Orthopedic Surgery: Yes (Left arm surgery) - ANESTHESIA Hx Anesthesia: Yes Hx Anesthesia Reactions: No Hx Malignant Hyperthermia: No Meds Allergies/Adverse Reactions: Allergies Allergy/AdvReac Type Severity Reaction Status Date / Time No Known Allergies Allergy Verified 08/09/18 19:39 - Medications Medications: Current Medications Acetaminophen (Tylenol 325mg Tab) 650 mg PO Q6 PRN PRN Reason: Pain, moderate (4-7) Last Admin: 08/10/18 02:07 Dose: 650 mg Albuterol/Ipratropium (Duoneb 3 Mg/0.5 Mg (3 Ml) Ud) 3 ml INH RQ6 [facility] Last Admin: 08/10/18 14:05 Dose: 3 ml Amlodipine Besylate (Norvasc) 10 mg PO DAILY [facility] Last Admin: 08/10/18 11:46 Dose: 10 mg Aspirin (Aspirin Chewable) 81 mg PO DAILY [facility] Clopidogrel Bisulfate (Plavix) 75 mg PO DAILY [facility] Last Admin: 08/10/18 10:21 Dose: 75 mg Enoxaparin Sodium (Lovenox) 40 mg SC DAILY [facility] Last Admin: 08/10/18 10:25 Dose: 40 mg Furosemide (Lasix) 40 mg IVP DAILY [facility] Last Admin: 08/10/18 12:41 Dose: 40 mg Gabapentin (Neurontin) 400 mg PO QAM [facility] Last Admin: 08/10/18 10:21 Dose: 400 mg Gabapentin (Neurontin) 800 mg PO QPM [facility] Influenza Virus Vaccine (Fluzone Quad [id number]) 60 mcg IM .ONCE ONE Stop: 08/11/18 12:01 Insulin Aspart (Novolog Mix 70/30 (70/30 Units/Ml)) 18 units SC ACBD [facility] Insulin Human Regular (Novolin R) 0 unit SC ACHS [facility]; Protocol Last Admin: 08/10/18 12:41 Dose: Not Given Losartan Potassium (Cozaar) 100 mg PO DAILY [facility] Last Admin: 08/10/18 10:21 Dose: 100 mg Metformin HCl (Glucophage) 850 mg PO BIDCC [facility] Last Admin: 08/10/18 08:41 Dose: 850 mg Metoprolol Succinate (Toprol Xl) 50 mg PO DAILY [facility] Last Admin: 08/10/18 10:21 Dose: 50 mg Pneumococcal Polyvalent Vaccine (Pneumovax 23 Vaccine) 0.5 ml IM .ONCE ONE Stop: 08/11/18 12:01 Rosuvastatin Calcium (Crestor) 5 mg PO HS [facility] Sitagliptin Phosphate (Januvia) 100 mg PO DAILY [facility] Last Admin: 08/10/18 10:21 Dose: 100 mg Physical Exam - Head Exam Head Exam: ATRAUMATIC, NORMOCEPHALIC - Eye Exam Eye Exam: Normal appearance - ENT Exam ENT Exam: Mucous Membranes Moist - Neck Exam Neck exam: Positive for: Normal Inspection - Respiratory Exam Respiratory Exam: Decreased Breath Sounds - Cardiovascular Exam Cardiovascular Exam: REGULAR RHYTHM - GI/Abdominal Exam GI & Abdominal Exam: Normal Bowel Sounds, Soft Results - Vital Signs Recent Vital Signs: Last Vital Signs Temp 97.7 F 08/10/18 15:48 Pulse 81 08/10/18 17:37 Resp 20 08/10/18 15:48 BP 120/70 08/10/18 15:48 Pulse Ox 99 08/10/18 15:48 - Labs Result Diagrams: 08/09/18 19:48 08/09/18 19:48 Labs: Laboratory Results - last 24 hr 08/09/18 08/09/18 08/09/18 19:48 19:48 19:48 WBC 5.9 RBC 3.68 L Hgb 10.8 L Hct 31.4 L MCV 85.4 MCH 29.2 MCHC 34.2 RDW 13.2 Plt Count 193 D MPV 8.1 Neut % (Auto) 73.2 Lymph % (Auto) 17.7 L Avery % (Auto) 7.6 Eos % (Auto) 1.0 Baso % (Auto) 0.5 Neut # (Auto) 4.3 Lymph # (Auto) 1.0 Avery # (Auto) 0.4 Eos # (Auto) 0.1 Baso # (Auto) 0.0 PT 12.0 INR 1.1 APTT 31 Puncture Site pCO2 pO2 HCO3 ABG pH ABG Total CO2 ABG O2 Saturation ABG Base Excess Moises Test ABG Potassium Glucose Lactate Sodium 134 Potassium 4.2 Chloride 103 Carbon Dioxide 24 Anion Gap 12 BUN 21 H Creatinine 0.8 Est GFR ( Amer) > 60 Est GFR (Non-Af Amer) > 60 POC Glucose (mg/dL) Random Glucose 188 H Calcium 8.3 L Total Bilirubin 0.5 AST 24 ALT 40 Alkaline Phosphatase 75 Total Creatine Kinase CK-MB (Mass) Troponin I NT-Pro-B Natriuret Pep Total Protein 6.4 Albumin 3.1 L Globulin 3.3 Albumin/Globulin Ratio 0.9 L Arterial Blood Potassium Urine Color Urine Clarity Urine pH Ur Specific [place] Urine Protein Urine Glucose (UA) Urine Ketones Urine Blood Urine Nitrate Urine Bilirubin Urine Urobilinogen Ur Leukocyte Esterase Urine WBC (Auto) Urine RBC (Auto) Ur Squamous Epith Cells Hyaline Casts Influenza Typ A,B (EIA) 08/09/18 08/09/18 08/09/18 19:48 20:04 20:18 WBC RBC Hgb Hct MCV MCH MCHC RDW Plt Count MPV Neut % (Auto) Lymph % (Auto) Avery % (Auto) Eos % (Auto) Baso % (Auto) Neut # (Auto) Lymph # (Auto) Avery # (Auto) Eos # (Auto) Baso # (Auto) PT INR APTT Puncture Site Rb pCO2 35 pO2 82 HCO3 24.4 ABG pH 7.43 ABG Total CO2 24.3 ABG O2 Saturation 98.5 H ABG Base Excess -0.6 Moises Test Na ABG Potassium 3.9 Glucose 187 H Lactate 0.8 Sodium 138.0 Potassium Chloride 108.0 H Carbon Dioxide Anion Gap BUN Creatinine Est GFR ( Amer) Est GFR (Non-Af Amer) POC Glucose (mg/dL) Random Glucose Calcium Total Bilirubin AST ALT Alkaline Phosphatase Total Creatine Kinase CK-MB (Mass) Troponin I 0.0240 NT-Pro-B Natriuret Pep 3450 H Total Protein Albumin Globulin Albumin/Globulin Ratio Arterial Blood Potassium 3.9 Urine Color Urine Clarity Urine pH Ur Specific [place] Urine Protein Urine Glucose (UA) Urine Ketones Urine Blood Urine Nitrate Urine Bilirubin Urine Urobilinogen Ur Leukocyte Esterase Urine WBC (Auto) Urine RBC (Auto) Ur Squamous Epith Cells Hyaline Casts Influenza Typ A,B (EIA) Negative for flu a/b 08/09/18 08/09/18 08/10/18 20:48 23:59 02:25 WBC RBC Hgb Hct MCV MCH MCHC RDW Plt Count MPV Neut % (Auto) Lymph % (Auto) Avery % (Auto) Eos % (Auto) Baso % (Auto) Neut # (Auto) Lymph # (Auto) Avery # (Auto) Eos # (Auto) Baso # (Auto) PT INR APTT Puncture Site pCO2 pO2 HCO3 ABG pH ABG Total CO2 ABG O2 Saturation ABG Base Excess Moises Test ABG Potassium Glucose Lactate Sodium Potassium Chloride Carbon Dioxide Anion Gap BUN Creatinine Est GFR ( Amer) Est GFR (Non-Af Amer) POC Glucose (mg/dL) 160 H Random Glucose Calcium Total Bilirubin AST ALT Alkaline Phosphatase Total Creatine Kinase 38 L CK-MB (Mass) 1.55 Troponin I 0.0220 NT-Pro-B Natriuret Pep Total Protein Albumin Globulin Albumin/Globulin Ratio Arterial Blood Potassium Urine Color Yellow Urine Clarity Clear Urine pH 5.0 Ur Specific [place] 1.023 Urine Protein 2+ H Urine Glucose (UA) Normal Urine Ketones Negative Urine Blood 2+ H Urine Nitrate Negative Urine Bilirubin 1+ H Urine Urobilinogen 2.0 Ur Leukocyte Esterase Neg Urine WBC (Auto) 5 Urine RBC (Auto) 25 H Ur Squamous Epith Cells < 1 Hyaline Casts 6-10 H Influenza Typ A,B (EIA) 08/10/18 08/10/18 08/10/18 07:48 11:02 12:19 WBC RBC Hgb Hct MCV MCH MCHC RDW Plt Count MPV Neut % (Auto) Lymph % (Auto) Avery % (Auto) Eos % (Auto) Baso % (Auto) Neut # (Auto) Lymph # (Auto) Avery # (Auto) Eos # (Auto) Baso # (Auto) PT INR APTT Puncture Site pCO2 pO2 HCO3 ABG pH ABG Total CO2 ABG O2 Saturation ABG Base Excess Moises Test ABG Potassium Glucose Lactate Sodium Potassium Chloride Carbon Dioxide Anion Gap BUN Creatinine Est GFR ( Amer) Est GFR (Non-Af Amer) POC Glucose (mg/dL) 121 H 137 H Random Glucose Calcium Total Bilirubin AST ALT Alkaline Phosphatase Total Creatine Kinase 61 CK-MB (Mass) 1.48 Troponin I 0.0190 NT-Pro-B Natriuret Pep Total Protein Albumin Globulin Albumin/Globulin Ratio Arterial Blood Potassium Urine Color Urine Clarity Urine pH Ur Specific [place] Urine Protein Urine Glucose (UA) Urine Ketones Urine Blood Urine Nitrate Urine Bilirubin Urine Urobilinogen Ur Leukocyte Esterase Urine WBC (Auto) Urine RBC (Auto) Ur Squamous Epith Cells Hyaline Casts Influenza Typ A,B (EIA) 08/10/18 16:07 WBC RBC Hgb Hct MCV MCH MCHC RDW Plt Count MPV Neut % (Auto) Lymph % (Auto) Avery % (Auto) Eos % (Auto) Baso % (Auto) Neut # (Auto) Lymph # (Auto) Avery # (Auto) Eos # (Auto) Baso # (Auto) PT INR APTT Puncture Site pCO2 pO2 HCO3 ABG pH ABG Total CO2 ABG O2 Saturation ABG Base Excess Moises Test ABG Potassium Glucose Lactate Sodium Potassium Chloride Carbon Dioxide Anion Gap BUN Creatinine Est GFR ( Amer) Est GFR (Non-Af Amer) POC Glucose (mg/dL) 113 H Random Glucose Calcium Total Bilirubin AST ALT Alkaline Phosphatase Total Creatine Kinase CK-MB (Mass) Troponin I NT-Pro-B Natriuret Pep Total Protein Albumin Globulin Albumin/Globulin Ratio Arterial Blood Potassium Urine Color Urine Clarity Urine pH Ur Specific [place] Urine Protein Urine Glucose (UA) Urine Ketones Urine Blood Urine Nitrate Urine Bilirubin Urine Urobilinogen Ur Leukocyte Esterase Urine WBC (Auto) Urine RBC (Auto) Ur Squamous Epith Cells Hyaline Casts Influenza Typ A,B (EIA) Assessment & Plan (1) CHF (congestive heart failure) Status: Acute Comment: echocardiogram done today showed ejection fraction of 20%. Continue Lasix. Consider life vest (2) COPD (chronic obstructive pulmonary disease) with acute bronchitis Status: Acute Comment: Continue nebulizer treatment
[2018-08-10] MEDS: (Novolog Mix 70/30) Insulin Aspart/Insulin Aspar 100 units/ml SC SCH (18:57)
--- NOTE | 2018-08-10 21:52 | CP.PCM.HP ---
Past Patient History - Infectious Disease Hx of Infectious Diseases: None - Past Medical History & Family History Past Medical History?: Yes - Past Social History Smoking Status: Former Smoker - CARDIAC Hx Hypercholesterolemia: Yes Hx Hypertension: Yes Hx Pacemaker: No - PULMONARY Hx Respiratory Disorders: Yes Hx Bronchitis: Yes - NEUROLOGICAL Hx Neurological Disorder: No HX Cerebrovascular Accident: No - HEENT Hx HEENT Problems: No - RENAL Hx Chronic Kidney Disease: No - ENDOCRINE/METABOLIC Hx Endocrine Disorders: Yes Hx Diabetes Mellitus Type 2: Yes - HEMATOLOGICAL/ONCOLOGICAL Hx Human Immunodeficiency Virus (HIV): Yes (undetectable) - INTEGUMENTARY Hx Dermatological Problems: No - MUSCULOSKELETAL/RHEUMATOLOGICAL Hx Arthritis: Yes Hx Falls: No - GASTROINTESTINAL Hx Gastrointestinal Disorders: No - GENITOURINARY/GYNECOLOGICAL Hx Genitourinary Disorders: No - PSYCHIATRIC Hx Substance Use: No - SURGICAL HISTORY Hx Coronary Stent: Yes (cardiac cath with stent placement) Hx Orthopedic Surgery: Yes (Left arm surgery) - ANESTHESIA Hx Anesthesia: Yes Hx Anesthesia Reactions: No Hx Malignant Hyperthermia: No Meds Allergies/Adverse Reactions: Allergies Allergy/AdvReac Type Severity Reaction Status Date / Time No Known Allergies Allergy Verified 08/09/18 19:39 Results - Vital Signs Recent Vital Signs: Last Vital Signs Temp 97.7 F 08/10/18 15:48 Pulse 81 08/10/18 17:37 Resp 20 08/10/18 15:48 BP 120/70 08/10/18 15:48 Pulse Ox 99 08/10/18 15:48 - Labs Result Diagrams: 08/09/18 19:48 08/09/18 19:48 Labs: Laboratory Results - last 24 hr 08/09/18 08/10/18 08/10/18 23:59 02:25 07:48 POC Glucose (mg/dL) 160 H 121 H Total Creatine Kinase 38 L CK-MB (Mass) 1.55 Troponin I 0.0220 08/10/18 08/10/18 08/10/18 11:02 12:19 16:07 POC Glucose (mg/dL) 137 H 113 H Total Creatine Kinase 61 CK-MB (Mass) 1.48 Troponin I 0.0190 08/10/18 21:15 POC Glucose (mg/dL) 97 Total Creatine Kinase CK-MB (Mass) Troponin I
[2018-08-11] MEDS: Albuterol-Ipratrop 3 mg / 0.5 (3 ml) UD INH SCH ×3 (01:48→19:14)
--- NOTE | 2018-08-11 04:48 | HP ---
CHIEF COMPLIANT: Dyspnea. HISTORY OF PRESENT ILLNESS: This is a 63-year-old [place] male with history of type 2 diabetes, hypertension, hyperlipemia, coronary artery disease, status post drug-eluting stent placed on 08/20/2017 in mid left anterior descending artery. The patient has another cardiac cath done in 12/2017 with [id number] UT with proximal LAD lesion of 60%, diastolic heart failure with ejection fraction of 55%. He is a smoker. He has HIV, not on HAART therapy. He has hepatitis C virus, which is also not treated. He came to the emergency room because of worsening shortness of breath. The patient has dyspnea on exertion and he has orthopnea. He denies any PND. The patient has history of multiple ER visits. According to the patient, he started experiencing dyspnea. He was unable to ambulate more than half a block and unable to lie down flat. Along with that he had dry cough, generalized weakness, tiredness, anorexia, malaise, and fatigue. According to the patient, he stopped smoking and drinking a month ago. The patient had no fever, chills, rigors. He has palpitations, weakness, and dizziness. He denies any nausea, vomiting, or diarrhea. He denies any polyuria, polydipsia, or polyphagia. He denies any hematuria and pyuria. He denies any sneezing, itchy eyes, or itchy nose. He denies any tingling, numbness or paresthesias of the feet. PAST MEDICAL HISTORY: Diabetes, hypertension, hyperlipidemia, HIV positive, unknown CD4 count, hep C positive. ALLERGIES: UNKNOWN. CURRENT MEDICATIONS: At home, the patient is on Plavix, Humalog 75/25, Neurontin, Norvasc, Januvia, Zocor, Toprol, Cozaar, and Glucophage. SOCIAL HISTORY: He is ex-smoker, ex-ET[employer] user. FAMILY HISTORY: Negative for premature coronary artery disease. PHYSICAL EXAMINATION GENERAL: An elderly male in no acute distress. Calm, quiet. VITAL SIGNS: Blood pressure 120/70, pulse 73, respiratory rate 20, and temperature 97.7. SKIN: No rashes. No bruises. No purpura. No petechiae. HEENT: Atraumatic, normocephalic. Negative pallor. Negative jaundice. Extraocular movements are intact. Oral hygiene is poor. NECK: Supple. No JVD. No lymph node. No thyromegaly. No carotid bruits. CHEST: Chest wall, bilateral symmetrical expansion. No masses. No deformity. BREASTS: No masses. No nipple discharge. LUNGS: Bilateral scattered rales at the bases. CARDIOVASCULAR SYSTEM: PMI in the fifth intercostal space. S1 and S2 regular, 2/6 systolic ejection murmur at the apex. ABDOMEN: Soft and nontender. Bowel sounds are positive. RECTAL: Enlarged prostate. EXTREMITIES: No clubbing, cyanosis or edema. CENTRAL NERVOUS SYSTEM: The patient is awake, alert and oriented x3. Cranial nerves II through XII are normal. Power 5/5 x4. Plantars are downgoing. ASSESSMENT: 1. Exacerbation of congestive heart failure with diastolic heart failure, rule out underlying ongoing ischemia, rule out myocardial infarction. 2. Coronary artery disease, status post stent. 3. Hypertension. 4. Hyperlipidemia. 5. Human immunodeficiency virus positive. PLAN: Cardiac enzymes x3. Echocardiogram. Cardiac evaluation. Monitor the patient. Esau Gordillo MD
[2018-08-11 06:52] LABS: BASO % 0.7 % (0.0-2.0); EOS # 0.1 K/uL (0.0-0.7); EOS % 1.8 % (0.0-4.0); HEMOGLOBIN 10.7 g/dL (12.0-18.0); LYMPH # 1.1 K/uL (1.0-4.3); LYMPH % 17.5 % (20.0-40.0); MEAN CORPUSCULAR HEMOGLOBIN 29.9 pg (27.0-31.0); MEAN CORPUSCULAR HGB CONC 34.8 g/dL (33.0-37.0); MEAN PLATELET VOLUME 8.6 fL (7.2-11.7); MONO # 0.4 K/uL (0.0-0.8); MONO % 6.5 % (0.0-10.0); NEUT # 4.6 K/uL (1.8-7.0); NEUT % 73.5 % (50.0-75.0); RBC 3.6 Mil/uL (4.40-5.90); RED CELL DISTRIBUTION WIDTH 13.1 % (11.5-14.5); WHITE BLOOD COUNT 6.3 K/uL (4.8-10.8)
[2018-08-11 07:38] LABS: BLOOD UREA NITROGEN 26 mg/dL (9-20); CALCIUM 8.6 mg/dl (8.6-10.4); GFR NON-AFRICAN AMERICAN > 60
--- NOTE | 2018-08-11 08:03 | CP.PCM.PN ---
Subjective - Date & Time of Evaluation Date of Evaluation: 08/11/18 Time of Evaluation: 08:01 - Subjective Subjective: Ortho f/u DR. Cordero 63M RHD complains of left hand fracture 4 weeks ago. He was seen and treated at [facility] 2 weeks after the fracture and was placed in splint. Patient had follow up appt scheduled for today and states he was told that they would be taking the splint off today. Denies pain in hand, states that he has keep splint intact. D enies numb ness/tingling. Admitted for SOB PMH: HTN, SD, CAD s/p stents, DM, HIV, Hep C +smoker (smoking cessation advised) Objective - Vital Signs/Intake and Output Vital Signs (last 24 hours): Temp Pulse Resp BP Pulse Ox 97.7 F 79 18 116/81 97 08/11/18 07:00 08/11/18 07:00 08/11/18 07:00 08/11/18 07:00 08/11/18 07:00 - Medications Medications: Current Medications Acetaminophen (Tylenol 325mg Tab) 650 mg PO Q6 PRN PRN Reason: Pain, moderate (4-7) Last Admin: 08/10/18 02:07 Dose: 650 mg Albuterol/Ipratropium (Duoneb 3 Mg/0.5 Mg (3 Ml) Ud) 3 ml INH RQ6 [facility] Last Admin: 08/11/18 01:48 Dose: 3 ml Amlodipine Besylate (Norvasc) 5 mg PO DAILY [facility] Aspirin (Aspirin Chewable) 81 mg PO DAILY [facility] Clopidogrel Bisulfate (Plavix) 75 mg PO DAILY [facility] Last Admin: 08/10/18 10:21 Dose: 75 mg Enoxaparin Sodium (Lovenox) 40 mg SC DAILY [facility] Last Admin: 08/10/18 10:25 Dose: 40 mg Furosemide (Lasix) 40 mg IVP DAILY [facility] Last Admin: 08/10/18 12:41 Dose: 40 mg Gabapentin (Neurontin) 400 mg PO QAM [facility] Last Admin: 08/10/18 10:21 Dose: 400 mg Gabapentin (Neurontin) 800 mg PO QPM [facility] Last Admin: 08/10/18 20:53 Dose: 800 mg Influenza Virus Vaccine (Fluzone Quad [id number]) 60 mcg IM .ONCE ONE Stop: 08/11/18 12:01 Insulin Aspart (Novolog Mix 70/30 (70/30 Units/Ml)) 18 units SC ACBD [facility] Last Admin: 08/10/18 18:57 Dose: 18 units Insulin Human Regular (Novolin R) 0 unit SC ACHS [facility]; Protocol Last Admin: 08/10/18 19:26 Dose: Not Given Losartan Potassium (Cozaar) 100 mg PO DAILY [facility] Last Admin: 08/10/18 10:21 Dose: 100 mg Metformin HCl (Glucophage) 850 mg PO BIDCC [facility] Last Admin: 08/10/18 18:56 Dose: 850 mg Metoprolol Succinate (Toprol Xl) 50 mg PO DAILY [facility] Last Admin: 08/10/18 10:21 Dose: 50 mg Pneumococcal Polyvalent Vaccine (Pneumovax 23 Vaccine) 0.5 ml IM .ONCE ONE Stop: 08/11/18 12:01 Rosuvastatin Calcium (Crestor) 5 mg PO HS [facility] Last Admin: 08/10/18 21:42 Dose: 5 mg Sitagliptin Phosphate (Januvia) 100 mg PO DAILY [facility] Last Admin: 08/10/18 10:21 Dose: 100 mg - Labs Labs: 08/11/18 06:44 08/11/18 06:44 PT 12.0 SECONDS (9.7-12.2) 08/09/18 19:48 INR 1.1 08/09/18 19:48 APTT 31 SECONDS (21-34) 08/09/18 19:48 - Constitutional Appears: Well, No Acute Distress - Head Exam Head Exam: ATRAUMATIC - Neck Exam Neck Exam: Full ROM, Normal Inspection - Respiratory Exam Respiratory Exam: NORMAL BREATHING PATTERN - Cardiovascular Exam Additional comments: +cap refill - Extremities Exam Additional comments: left ulnar gutter splint intact - Neurological Exam Neurological Exam: Alert, Awake, Oriented x3 - Psychiatric Exam Psychiatric exam: Normal Affect, Normal Mood - Skin Skin Exam: Dry, Intact (splint intact), Normal Color, Warm Assessment and Plan (1) Fracture of metacarpal of left hand, closed Assessment & Plan: xrays d/w Dr. Cordero, he is out of town, will f/u Dr. Gordillo who will be consulted instead if patient is to be discharged, he can call Dr. Jaffe and reschedule follow up visit Addendum: Dr. Jimenez consulted, will d/w Dr. Jimenez Status: Acute
[2018-08-11] MEDS: (Novolin R) Insulin Human Regular 100 units/ml vial SC SCH ×4 (08:19→21:34)
[2018-08-11] MEDS: (Novolog Mix 70/30) Insulin Aspart/Insulin Aspar 100 units/ml SC SCH ×2 (09:21→16:27)
[2018-08-11] MEDS: Enoxaparin 40 mg Syringe SC SCH (11:08)
[2018-08-11] MEDS: Metoprolol Succinate 50 mg XL Tab PO SCH (11:08)
[2018-08-11] MEDS ORDERED: Pneumococcal 23-Valent Vaccine IM ONE (12:00)
[2018-08-11] MEDS ORDERED: Influenza Vaccine 60 MCG/0.5 ML SYR (3 yr & up) IM ONE (12:00)
--- NOTE | 2018-08-11 12:56 | CARD ---
APPROVED REPORT Date of service: 08/10/2018 EXAM: Two-dimensional and M-mode echocardiogram with Doppler and color Doppler. Other Information Quality : GoodRhythm : INDICATION CVA/TIA COPD RISK FACTORS Hypertension Diabetes 2D DIMENSIONS IVSd1.2 (0.7-1.1cm)LVDd5.9 (3.9-5.9cm) PWd1.2 (0.7-1.1cm)LA Qmpsbe00 (18-58mL) LVDs5.0 (2.5-4.0cm)FS (%) 15.4 % LVEF (%)32.0 (>50%)LVEF (Uribe's)30.71 % M-Mode DIMENSIONS Left Atrium (MM)4.30 (2.5-4.0cm)IVSd1.32 (0.7-1.1cm) Aortic Root4.60 (2.2-3.7cm)LVDd6.71 (4.0-5.6cm) Aortic Cusp Exc.2.56 (1.5-2.0cm)PWd1.27 (0.7-1.1cm) FS (%) 20 %LVDs5.39 (2.0-3.8cm) LVEF (%)39 (>50%) Mitral Valve MV E Jdfjvxpv561.7cm/sMV A Vyxwlsxe37.6cm/sE/A ratio1.4 MXRA509.54 cm/s TDI Lateral E' Peak V5.25cm/sMedial E' Peak V3.25cm/sE/Lateral E'23.2 E/Medial E'37.4 Tricuspid Valve TR Peak [id number]/sTR Peak Gr.[id number] LEFT VENTRICLE The Left Ventricle is moderately dilated. Eccentric hypertrophy The systolic function is moderately to severely impaired. The Ejection Fraction is 25-30%. There is global hypokinesis of the left ventricle. Transmitral Doppler flow pattern is Grade II-pseudonormal filling dynamics. LV filling pressure is moderately increased No left ventricle thrombus noted on this study. There is no ventricular septal defect visualized. There is no left ventricular aneurysm. There is no mass noted in the left ventricle. RIGHT VENTRICLE The right ventricle is normal size. There is normal right ventricular wall thickness. The right ventricular systolic function is normal. ATRIA The left atrium is moderately dilated. The right atrium size is normal. The interatrial septum is intact with no evidence for an atrial septal defect. AORTIC VALVE The aortic valve is normal in structure and function. No aortic regurgitation is present. There is no aortic valvular stenosis. There is no aortic valvular vegetation. MITRAL VALVE The mitral valve is normal in structure and function. There is no evidence of mitral valve prolapse. There is no mitral valve stenosis. Mitral regurgitation is mild. ERO is 0.1 cm2. Regurge volume is 18 ml/sec. TRICUSPID VALVE The tricuspid valve is normal in structure and function. There is moderate tricuspid regurgitation. Right ventricular systolic pressure is estimated at 50-60 mmHg. There is no tricuspid valve prolapse or vegetation. There is no tricuspid valve stenosis. PULMONIC VALVE The pulmonary valve is normal in structure and function. There is no pulmonic valvular regurgitation. There is no pulmonic valvular stenosis. GREAT VESSELS The aortic root is normal in size. The ascending aorta is normal in size. The pulmonary artery is normal. The IVC is normal in size and collapses >50% with inspiration. PERICARDIAL EFFUSION The pericardium appears normal. There is no pleural effusion. <Conclusion> The Left Ventricle is moderately dilated. Eccentric hypertrophy The systolic function is moderately to severely impaired. The Ejection Fraction is 25-30%. There is global hypokinesis of the left ventricle. Transmitral Doppler flow pattern is Grade II-pseudonormal filling dynamics. LV filling pressure is moderately increased The left atrium is moderately dilated. Mitral regurgitation is mild. ERO is 0.1 cm2. Regurge volume is 18 ml/sec. There is moderate tricuspid regurgitation. Right ventricular systolic pressure is estimated at 50-60 mmHg.
--- NOTE | 2018-08-11 13:31 | RAD ---
PROCEDURE: Left Hand Radiographs. HISTORY: fracture COMPARISON: None. FINDINGS: BONES: Confirmation of clinically suspected fracture proximal phalanx left 4th digit. JOINTS: Normal. No osteoarthritic changes. SOFT TISSUES: Soft tissue swelling attests to the acuity of the fracture. OTHER FINDINGS: None. IMPRESSION: Diffuse soft tissue swelling left hand. Incompletely visualized fracture proximal phalanx 4th digit. Limitations of the current study: Detail obscured by overlying fiberglass cast.
--- NOTE | 2018-08-11 17:43 | CP.PCM.PN ---
Subjective - Date & Time of Evaluation Date of Evaluation: 08/11/18 Time of Evaluation: 12:40 - Subjective Subjective: Patient seen and examined at bedside, lying down comfortably. Afebrile and in no acute distress. Denies cough, chest pain, fever/chills Echocardiogram on 08/10/18 showed EF of 20%. Continue Lasix. Pt will benefit from Life Vest Continue nebulizer Objective - Vital Signs/Intake and Output Vital Signs (last 24 hours): Temp Pulse Resp BP Pulse Ox 98.1 F 82 20 115/75 97 08/11/18 15:00 08/11/18 15:00 08/11/18 15:00 08/11/18 15:00 08/11/18 15:00 Intake and Output: 08/11/18 08/11/18 06:59 18:59 Intake Total 200 Balance 200 - Medications Medications: Current Medications Acetaminophen (Tylenol 325mg Tab) 650 mg PO Q6 PRN PRN Reason: Pain, moderate (4-7) Last Admin: 08/10/18 02:07 Dose: 650 mg Albuterol/Ipratropium (Duoneb 3 Mg/0.5 Mg (3 Ml) Ud) 3 ml INH RQ6 [facility] Last Admin: 08/11/18 07:05 Dose: 3 ml Amlodipine Besylate (Norvasc) 5 mg PO DAILY [facility] Last Admin: 08/11/18 11:08 Dose: 5 mg Aspirin (Aspirin Chewable) 81 mg PO DAILY [facility] Last Admin: 08/11/18 11:08 Dose: 81 mg Clopidogrel Bisulfate (Plavix) 75 mg PO DAILY [facility] Last Admin: 08/11/18 11:08 Dose: 75 mg Enoxaparin Sodium (Lovenox) 40 mg SC DAILY [facility] Last Admin: 08/11/18 11:08 Dose: 40 mg Furosemide (Lasix) 40 mg IVP DAILY [facility] Last Admin: 08/11/18 11:09 Dose: 40 mg Gabapentin (Neurontin) 400 mg PO QAM [facility] Last Admin: 08/11/18 11:08 Dose: 400 mg Gabapentin (Neurontin) 800 mg PO QPM [facility] Last Admin: 08/10/18 20:53 Dose: 800 mg Insulin Aspart (Novolog Mix 70/30 (70/30 Units/Ml)) 18 units SC ACBD [facility] Last Admin: 08/11/18 16:27 Dose: Not Given Insulin Human Regular (Novolin R) 0 unit SC ACHS [facility]; Protocol Last Admin: 08/11/18 16:27 Dose: Not Given Losartan Potassium (Cozaar) 100 mg PO DAILY [facility] Last Admin: 08/11/18 11:08 Dose: 100 mg Metformin HCl (Glucophage) 850 mg PO BIDCC [facility] Last Admin: 08/11/18 11:09 Dose: 850 mg Metoprolol Succinate (Toprol Xl) 50 mg PO DAILY [facility] Last Admin: 08/11/18 11:08 Dose: 50 mg Pneumococcal Polyvalent Vaccine (Pneumovax 23 Vaccine) 0.5 ml IM .ONCE ONE Stop: 08/12/18 10:01 Rosuvastatin Calcium (Crestor) 5 mg PO HS [facility] Last Admin: 08/10/18 21:42 Dose: 5 mg Sitagliptin Phosphate (Januvia) 100 mg PO DAILY [facility] Last Admin: 08/11/18 11:08 Dose: 100 mg - Labs Labs: 08/11/18 06:44 08/11/18 06:44 PT 12.0 SECONDS (9.7-12.2) 08/09/18 19:48 INR 1.1 08/09/18 19:48 APTT 31 SECONDS (21-34) 08/09/18 19:48 Assessment and Plan (1) CHF (congestive heart failure) Status: Acute (2) COPD (chronic obstructive pulmonary disease) with acute bronchitis Status: Acute
--- NOTE | 2018-08-11 18:27 | CP.PCM.CON ---
History of Present Illness - History of Present Illness History of Present Illness: Consultation for evaluation of new onset CHF E f30-35% , hx of CAD ( PCI of MLAD in 08/24 ) HPI: 63 year old male with hx of CAD s/p PCI of mLAD in 08/24, repeat cath in 12/24 admitted with worsening SOB x 3 weeks and diagnosed with new onset CHF ( E F35% ). He had an accident with traumatic injury to his left hand and subsequently noticed worsening SOB with activity which kept getting progressively worse. Was last seen in the office about 4 months ago at which time he was clinically stable. Review of Systems - Review of Systems Systems not reviewed;Unavailable: Acuity of Condition - Constitutional Constitutional: As Per HPI - EENT Eyes: As Per HPI Ears: As Per HPI Nose/Mouth/Throat: As Per HPI - Cardiovascular Cardiovascular: As Per HPI - Respiratory Respiratory: As Per HPI - Gastrointestinal Gastrointestinal: As Per HPI - Genitourinary Genitourinary: As Per HPI - Reproductive: Male Reproductive:Male: As Per HPI - Musculoskeletal Musculoskeletal: As Per HPI - Integumentary Integumentary: As Per HPI - Neurological Neurological: As Per HPI - Psychiatric Psychiatric: As Per HPI - Endocrine Endocrine: As Per HPI - Hematologic/Lymphatic Hematologic: As Per HPI Past Patient History - Infectious Disease Hx of Infectious Diseases: None - Past Medical History & Family History Past Medical History?: Yes - Past Social History Smoking Status: Former Smoker - CARDIAC Hx Hypercholesterolemia: Yes Hx Hypertension: Yes Hx Pacemaker: No - PULMONARY Hx Respiratory Disorders: Yes Hx Bronchitis: Yes - NEUROLOGICAL Hx Neurological Disorder: No HX Cerebrovascular Accident: No - HEENT Hx HEENT Problems: No - RENAL Hx Chronic Kidney Disease: No - ENDOCRINE/METABOLIC Hx Endocrine Disorders: Yes Hx Diabetes Mellitus Type 2: Yes - HEMATOLOGICAL/ONCOLOGICAL Hx Human Immunodeficiency Virus (HIV): Yes (undetectable) - INTEGUMENTARY Hx Dermatological Problems: No - MUSCULOSKELETAL/RHEUMATOLOGICAL Hx Arthritis: Yes Hx Falls: No - GASTROINTESTINAL Hx Gastrointestinal Disorders: No - GENITOURINARY/GYNECOLOGICAL Hx Genitourinary Disorders: No - PSYCHIATRIC Hx Substance Use: No - SURGICAL HISTORY Hx Coronary Stent: Yes (cardiac cath with stent placement) Hx Orthopedic Surgery: Yes (Left arm surgery) - ANESTHESIA Hx Anesthesia: Yes Hx Anesthesia Reactions: No Hx Malignant Hyperthermia: No Meds Allergies/Adverse Reactions: Allergies Allergy/AdvReac Type Severity Reaction Status Date / Time No Known Allergies Allergy Verified 08/09/18 19:39 - Medications Medications: Current Medications Acetaminophen (Tylenol 325mg Tab) 650 mg PO Q6 PRN PRN Reason: Pain, moderate (4-7) Last Admin: 08/10/18 02:07 Dose: 650 mg Albuterol/Ipratropium (Duoneb 3 Mg/0.5 Mg (3 Ml) Ud) 3 ml INH RQ6 [facility] Last Admin: 08/11/18 07:05 Dose: 3 ml Amlodipine Besylate (Norvasc) 5 mg PO DAILY [facility] Last Admin: 08/11/18 11:08 Dose: 5 mg Aspirin (Aspirin Chewable) 81 mg PO DAILY [facility] Last Admin: 08/11/18 11:08 Dose: 81 mg Clopidogrel Bisulfate (Plavix) 75 mg PO DAILY [facility] Last Admin: 08/11/18 11:08 Dose: 75 mg Enoxaparin Sodium (Lovenox) 40 mg SC DAILY [facility] Last Admin: 08/11/18 11:08 Dose: 40 mg Furosemide (Lasix) 40 mg IVP DAILY [facility] Last Admin: 08/11/18 11:09 Dose: 40 mg Gabapentin (Neurontin) 400 mg PO QAM [facility] Last Admin: 08/11/18 11:08 Dose: 400 mg Gabapentin (Neurontin) 800 mg PO QPM [facility] Last Admin: 08/11/18 17:53 Dose: 800 mg Insulin Aspart (Novolog Mix 70/30 (70/30 Units/Ml)) 18 units SC ACBD [facility] Last Admin: 08/11/18 16:27 Dose: Not Given Insulin Human Regular (Novolin R) 0 unit SC ACHS [facility]; Protocol Last Admin: 08/11/18 16:27 Dose: Not Given Losartan Potassium (Cozaar) 100 mg PO DAILY [facility] Last Admin: 08/11/18 11:08 Dose: 100 mg Metformin HCl (Glucophage) 850 mg PO BIDCC [facility] Last Admin: 08/11/18 17:53 Dose: 850 mg Metoprolol Succinate (Toprol Xl) 50 mg PO DAILY [facility] Last Admin: 08/11/18 11:08 Dose: 50 mg Pneumococcal Polyvalent Vaccine (Pneumovax 23 Vaccine) 0.5 ml IM .ONCE ONE Stop: 08/12/18 10:01 Rosuvastatin Calcium (Crestor) 5 mg PO HS [facility] Last Admin: 08/10/18 21:42 Dose: 5 mg Sitagliptin Phosphate (Januvia) 100 mg PO DAILY [facility] Last Admin: 08/11/18 11:08 Dose: 100 mg Physical Exam - Constitutional Appears: Well - Head Exam Head Exam: ATRAUMATIC, NORMAL INSPECTION, NORMOCEPHALIC - Eye Exam Eye Exam: EOMI, Normal appearance, PERRL Pupil Exam: NORMAL ACCOMODATION, PERRL - ENT Exam ENT Exam: Mucous Membranes Moist, Normal Exam - Neck Exam Neck exam: Positive for: Normal Inspection - Respiratory Exam Respiratory Exam: Clear to Auscultation Bilateral, NORMAL BREATHING PATTERN - Cardiovascular Exam Cardiovascular Exam: REGULAR RHYTHM, RRR, +S1, +S2, Systolic Murmur - GI/Abdominal Exam GI & Abdominal Exam: Normal Bowel Sounds, Soft. absent: Tenderness - Extremities Exam Extremities exam: Positive for: normal inspection - Back Exam Back exam: NORMAL INSPECTION - Neurological Exam Neurological exam: Alert, CN II-XII Intact, Normal Gait, Oriented x3, Reflexes Normal - Psychiatric Exam Psychiatric exam: Normal Affect, Normal Mood - Skin Skin Exam: Dry, Intact, Normal Color, Warm Results - Vital Signs Recent Vital Signs: Last Vital Signs Temp 98.1 F 08/11/18 15:00 Pulse 82 08/11/18 15:00 Resp 20 08/11/18 15:00 BP 115/75 08/11/18 15:00 Pulse Ox 97 08/11/18 15:00 - Labs Result Diagrams: 08/11/18 06:44 08/11/18 06:44 Labs: Laboratory Results - last 24 hr 08/10/18 08/11/18 08/11/18 21:15 06:09 06:44 WBC 6.3 RBC 3.60 L Hgb 10.7 L Hct 30.9 L MCV 86.0 MCH 29.9 MCHC 34.8 RDW 13.1 Plt Count 184 MPV 8.6 Neut % (Auto) 73.5 Lymph % (Auto) 17.5 L [place] % (Auto) 6.5 Eos % (Auto) 1.8 Baso % (Auto) 0.7 Neut # (Auto) 4.6 Lymph # (Auto) 1.1 [place] # (Auto) 0.4 Eos # (Auto) 0.1 Baso # (Auto) 0.0 Sodium Potassium Chloride Carbon Dioxide Anion Gap BUN Creatinine Est GFR ( Amer) Est GFR (Non-Af Amer) POC Glucose (mg/dL) 97 143 H Random Glucose Calcium 08/11/18 08/11/18 08/11/18 06:44 11:10 16:05 WBC RBC Hgb Hct MCV MCH MCHC RDW Plt Count MPV Neut % (Auto) Lymph % (Auto) [place] % (Auto) Eos % (Auto) Baso % (Auto) Neut # (Auto) Lymph # (Auto) [place] # (Auto) Eos # (Auto) Baso # (Auto) Sodium 136 Potassium 4.1 Chloride 99 Carbon Dioxide 30 Anion Gap 11 BUN 26 H Creatinine 1.1 Est GFR ( Amer) > 60 Est GFR (Non-Af Amer) > 60 POC Glucose (mg/dL) 185 H 140 H Random Glucose 143 H Calcium 8.6 Assessment & Plan (1) CHF (congestive heart failure) Assessment and Plan: New onset acute systolic hx of CAD with known moderate LAD stenosis IV lasix will need re-evaluation of LAD stent with FFR/IVUS as per plan cont dapt cont bb cont arb Status: Acute (2) CAD (coronary artery disease), [place] coronary artery Assessment and Plan: cont dapt cont bb cont statins plan for LHCx tomorrow with FFR/IVUS guidance Status: Acute (3) Dyspnea Status: Acute (4) Fracture of metacarpal of left hand, closed Status: Acute (5) Hyperlipidemia Status: Chronic (6) Hypertension Status: Chronic
--- NOTE | 2018-08-12 00:33 | CP.PCM.PN ---
Subjective - Subjective Subjective: dictated Objective - Vital Signs/Intake and Output Vital Signs (last 24 hours): Temp Pulse Resp BP Pulse Ox 98.1 F 81 20 115/75 97 08/11/18 15:00 08/11/18 20:00 08/11/18 15:00 08/11/18 15:00 08/11/18 15:00 Intake and Output: 08/11/18 08/12/18 18:59 06:59 Intake Total 200 300 Balance 200 300 - Medications Medications: Current Medications Acetaminophen (Tylenol 325mg Tab) 650 mg PO Q6 PRN PRN Reason: Pain, moderate (4-7) Last Admin: 08/10/18 02:07 Dose: 650 mg Albuterol/Ipratropium (Duoneb 3 Mg/0.5 Mg (3 Ml) Ud) 3 ml INH RQ6 [facility] Last Admin: 08/11/18 19:14 Dose: 3 ml Amlodipine Besylate (Norvasc) 5 mg PO DAILY [facility] Last Admin: 08/11/18 11:08 Dose: 5 mg Aspirin (Aspirin Chewable) 81 mg PO DAILY [facility] Last Admin: 08/11/18 11:08 Dose: 81 mg Clopidogrel Bisulfate (Plavix) 75 mg PO DAILY [facility] Last Admin: 08/11/18 11:08 Dose: 75 mg Enoxaparin Sodium (Lovenox) 40 mg SC DAILY [facility] Last Admin: 08/11/18 11:08 Dose: 40 mg Furosemide (Lasix) 40 mg IVP DAILY [facility] Last Admin: 08/11/18 11:09 Dose: 40 mg Gabapentin (Neurontin) 400 mg PO QAM [facility] Last Admin: 08/11/18 11:08 Dose: 400 mg Gabapentin (Neurontin) 800 mg PO QPM [facility] Last Admin: 08/11/18 17:53 Dose: 800 mg Insulin Aspart (Novolog Mix 70/30 (70/30 Units/Ml)) 18 units SC ACBD [facility] Last Admin: 08/11/18 16:27 Dose: Not Given Insulin Human Regular (Novolin R) 0 unit SC ACHS [facility]; Protocol Last Admin: 08/11/18 21:34 Dose: Not Given Losartan Potassium (Cozaar) 100 mg PO DAILY [facility] Last Admin: 08/11/18 11:08 Dose: 100 mg Metformin HCl (Glucophage) 850 mg PO BIDCC [facility] Last Admin: 08/11/18 17:53 Dose: 850 mg Metoprolol Succinate (Toprol Xl) 50 mg PO DAILY [facility] Last Admin: 08/11/18 11:08 Dose: 50 mg Pneumococcal Polyvalent Vaccine (Pneumovax 23 Vaccine) 0.5 ml IM .ONCE ONE Stop: 08/12/18 10:01 Rosuvastatin Calcium (Crestor) 5 mg PO [facility] Last Admin: 08/11/18 21:21 Dose: 5 mg Sitagliptin Phosphate (Januvia) 100 mg PO DAILY [facility] Last Admin: 08/11/18 11:08 Dose: 100 mg - Labs Labs: 08/11/18 06:44 08/11/18 06:44 PT 12.0 SECONDS (9.7-12.2) 08/09/18 19:48 INR 1.1 08/09/18 19:48 APTT 31 SECONDS (21-34) 08/09/18 19:48
[2018-08-12] MEDS: Albuterol-Ipratrop 3 mg / 0.5 (3 ml) UD INH SCH ×4 (01:20→20:03)
[2018-08-12] MEDS ORDERED: Pneumococcal 23-Valent Vaccine IM ONE (10:00)
[2018-08-12] MEDS: (Novolin R) Insulin Human Regular 100 units/ml vial SC SCH ×4 (10:16→22:06)
[2018-08-12] MEDS: Metoprolol Succinate 50 mg XL Tab PO SCH (10:16)
[2018-08-12] MEDS: Enoxaparin 40 mg Syringe SC SCH (10:16)
[2018-08-12] MEDS: (Novolog Mix 70/30) Insulin Aspart/Insulin Aspar 100 units/ml SC SCH ×2 (10:16→18:28)
--- NOTE | 2018-08-12 10:54 | PN ---
DATE: 08/12/2018 SUBJECTIVE: The patient is feeling better. He has decreased chest pain. No shortness of breath. Troponins were negative. PHYSICAL EXAMINATION: VITAL SIGNS: Blood pressure is 134/87, pulse 77, respiratory rate 18, temperature 97.7. LUNGS: Bilateral crackles. CARDIOPULMONARY: S1, S2, regular. ABDOMEN: Soft. ASSESSMENT: 1. Coronary artery disease, status post angioplasty. 2. Hypertension. 3. Diabetes. 4. Hyperlipidemia. 5. Hypertensive heart disease with congestive heart failure. PLAN: Continue current medications. Monitor the patient. Esau Gordillo MD
--- NOTE | 2018-08-12 12:50 | CP.PCM.PN ---
Subjective - Date & Time of Evaluation Date of Evaluation: 08/12/18 Time of Evaluation: 13:21 - Subjective Subjective: Patient states pain is well controlled. No new complaints. Review of Systems - Review of Systems All systems: reviewed and no additional remarkable complaints except - Musculoskeletal Musculoskeletal: As Par HPI Objective - Vital Signs/Intake and Output Vital Signs (last 24 hours): Temp Pulse Resp BP Pulse Ox 97.7 F 80 18 130/81 100 08/12/18 07:00 08/12/18 12:00 08/12/18 07:00 08/12/18 10:15 08/12/18 07:00 Intake and Output: 08/12/18 08/12/18 06:59 18:59 Intake Total 300 Balance 300 - Medications Medications: Current Medications Acetaminophen (Tylenol 325mg Tab) 650 mg PO Q6 PRN PRN Reason: Pain, moderate (4-7) Last Admin: 08/10/18 02:07 Dose: 650 mg Albuterol/Ipratropium (Duoneb 3 Mg/0.5 Mg (3 Ml) Ud) 3 ml INH RQ6 [facility] Last Admin: 08/12/18 07:10 Dose: 3 ml Aspirin (Aspirin Chewable) 81 mg PO DAILY [facility] Last Admin: 08/12/18 10:16 Dose: 81 mg Clopidogrel Bisulfate (Plavix) 75 mg PO DAILY [facility] Last Admin: 08/12/18 10:15 Dose: 75 mg Enoxaparin Sodium (Lovenox) 40 mg SC DAILY [facility] Last Admin: 08/12/18 10:16 Dose: 40 mg Furosemide (Lasix) 40 mg IVP DAILY [facility] Last Admin: 08/12/18 10:15 Dose: 40 mg Gabapentin (Neurontin) 400 mg PO QAM [facility] Last Admin: 08/12/18 10:16 Dose: 400 mg Gabapentin (Neurontin) 800 mg PO QPM [facility] Last Admin: 08/11/18 17:53 Dose: 800 mg Insulin Aspart (Novolog Mix 70/30 (70/30 Units/Ml)) 18 units SC ACBD [facility] Last Admin: 08/12/18 10:16 Dose: Not Given Insulin Human Regular (Novolin R) 0 unit SC ACHS [facility]; Protocol Last Admin: 08/12/18 11:49 Dose: Not Given Losartan Potassium (Cozaar) 100 mg PO DAILY [facility] Last Admin: 08/12/18 10:15 Dose: 100 mg Metformin HCl (Glucophage) 850 mg PO BIDCC [facility] Last Admin: 08/12/18 09:00 Dose: 850 mg Metoprolol Succinate (Toprol Xl) 50 mg PO DAILY [facility] Last Admin: 08/12/18 10:16 Dose: 50 mg Rosuvastatin Calcium (Crestor) 5 mg PO HS [facility] Last Admin: 08/11/18 21:21 Dose: 5 mg Sitagliptin Phosphate (Januvia) 100 mg PO DAILY [facility] Last Admin: 08/12/18 10:16 Dose: 100 mg - Labs Labs: 08/11/18 06:44 08/11/18 06:44 PT 12.0 SECONDS (9.7-12.2) 08/09/18 19:48 INR 1.1 08/09/18 19:48 APTT 31 SECONDS (21-34) 08/09/18 19:48 - Extremities Exam Additional comments: splint intact, abrasions to dorsal PIP joints healing, dry, no erythema. +ROM other fingers, sensation intact Assessment and Plan (1) Fracture of proximal phalanx of left ring finger Assessment & Plan: no obvious callus noted on xray continue splint at this time call for f/u with Dr. Alannah penny no orthopedic intervention indicated per Dr. Jimenez, states follow up with treating ortho, ortho stable for d/c d/w Dr. Jimenez, agrees with above Status: Acute (2) Fracture of metacarpal of left hand, closed Assessment & Plan: old, healed Status: Chronic Radiology Interpretation - Radiology Interpretation #3 Interpretation: tient Name / ID : EDIL MCLEAN M / [id number] Exam Date : 08/11/2018 08:16:12 ( Approved ) Study Comment : Sex / Age : M / [id number] Creator : Noe Weaver MD Dictator : Noe Weaver MD Bottom Saw Operator : Coat Operator Insulator : Noe Weaver MD Approver2 : Report Date : 08/11/2018 13:25:08 My Comment : PROCEDURE: Left Hand Radiographs. HISTORY: fracture COMPARISON: None. FINDINGS: BONES: Confirmation of clinically suspected fracture proximal phalanx left 4th digit. JOINTS: Normal. No osteoarthritic changes. SOFT TISSUES: Soft tissue swelling attests to the acuity of the fracture. OTHER FINDINGS: None. IMPRESSION: Diffuse soft tissue swelling left hand. Incompletely visualized fracture proximal phalanx 4th digit. Limitations of the current study: Detail obscured by overlying fiberglass cast.
--- NOTE | 2018-08-12 15:56 | CP.PCM.PN ---
Subjective - Date & Time of Evaluation Date of Evaluation: 08/12/18 Time of Evaluation: 10:50 - Subjective Subjective: Amandeep Hope DO, PGY-1 Cardiology Progress Note for Dr. Lang Patient was seen and examined at bedside this AM. He offers no new complaints this AM and states his SOB has improved since admission. Objective - Vital Signs/Intake and Output Vital Signs (last 24 hours): Temp Pulse Resp BP Pulse Ox 97.7 F 80 18 130/81 100 08/12/18 07:00 08/12/18 12:00 08/12/18 07:00 08/12/18 10:15 08/12/18 07:00 Intake and Output: 08/12/18 08/12/18 06:59 18:59 Intake Total 300 400 Balance 300 400 - Medications Medications: Current Medications Acetaminophen (Tylenol 325mg Tab) 650 mg PO Q6 PRN PRN Reason: Pain, moderate (4-7) Last Admin: 08/10/18 02:07 Dose: 650 mg Albuterol/Ipratropium (Duoneb 3 Mg/0.5 Mg (3 Ml) Ud) 3 ml INH RQ6 [facility] Last Admin: 08/12/18 14:09 Dose: 3 ml Aspirin (Aspirin Chewable) 81 mg PO DAILY [facility] Last Admin: 08/12/18 10:16 Dose: 81 mg Clopidogrel Bisulfate (Plavix) 75 mg PO DAILY [facility] Last Admin: 08/12/18 10:15 Dose: 75 mg Enoxaparin Sodium (Lovenox) 40 mg SC DAILY [facility] Last Admin: 08/12/18 10:16 Dose: 40 mg Furosemide (Lasix) 40 mg IVP DAILY [facility] Last Admin: 08/12/18 10:15 Dose: 40 mg Gabapentin (Neurontin) 400 mg PO QAM [facility] Last Admin: 08/12/18 10:16 Dose: 400 mg Gabapentin (Neurontin) 800 mg PO QPM [facility] Last Admin: 08/11/18 17:53 Dose: 800 mg Insulin Aspart (Novolog Mix 70/30 (70/30 Units/Ml)) 18 units SC ACBD [facility] Last Admin: 08/12/18 10:16 Dose: Not Given Insulin Human Regular (Novolin R) 0 unit SC ACHS [facility]; Protocol Last Admin: 08/12/18 11:49 Dose: Not Given Losartan Potassium (Cozaar) 100 mg PO DAILY [facility] Last Admin: 08/12/18 10:15 Dose: 100 mg Metformin HCl (Glucophage) 850 mg PO BIDCC [facility] Last Admin: 08/12/18 09:00 Dose: 850 mg Metoprolol Succinate (Toprol Xl) 50 mg PO DAILY [facility] Last Admin: 08/12/18 10:16 Dose: 50 mg Rosuvastatin Calcium (Crestor) 5 mg PO HS [facility] Last Admin: 08/11/18 21:21 Dose: 5 mg Sitagliptin Phosphate (Januvia) 100 mg PO DAILY [facility] Last Admin: 08/12/18 10:16 Dose: 100 mg - Labs Labs: 08/11/18 06:44 08/11/18 06:44 PT 12.0 SECONDS (9.7-12.2) 08/09/18 19:48 INR 1.1 08/09/18 19:48 APTT 31 SECONDS (21-34) 08/09/18 19:48 - Constitutional Appears: Non-toxic, No Acute Distress - Head Exam Head Exam: ATRAUMATIC, NORMOCEPHALIC - Eye Exam Eye Exam: EOMI, Normal appearance, PERRL - ENT Exam ENT Exam: Mucous Membranes Moist - Neck Exam Neck Exam: Full ROM, Normal Inspection - Respiratory Exam Respiratory Exam: Clear to Ausculation Bilateral. absent: Rales, Rhonchi, Whee zes - Cardiovascular Exam Cardiovascular Exam: REGULAR RHYTHM, RRR, +S1, +S2. absent: Diastolic murmur, Gallop, Rubs, Murmur - GI/Abdominal Exam GI & Abdominal Exam: Soft, Normal Bowel Sounds - Extremities Exam Extremities Exam: absent: Pedal Edema Additional comments: cast on L arm - Back Exam Back Exam: Full ROM, NORMAL INSPECTION - Neurological Exam Neurological Exam: Alert, Awake, Oriented x3 - Psychiatric Exam Psychiatric exam: Normal Affect, Normal Mood - Skin Skin Exam: Dry, Intact, Warm Assessment and Plan - Assessment and Plan (Free Text) Assessment: 63 yo M with PMH of CAD s/p PCI of mLAD in 08/24, repeat cath in 12/24 admitted for worsening SOB x 3 weeks. He was subsequently found to be in acute CHF exacerbation with estimated EF of 32% on TTE. Plan: 1. Acute systolic CHF exacerbation New onset, may be 2/2 worsening CAD exacerbated by recent traumatic accident Continue IV lasix, BB, ARB Plan for re-evaluation of LAD stent with FFR/IVUS Left heart cath planned for tomorrow 2. Hx CAD Continue ASA, plavix, crestor Plan for L heart cath and re-evaluation of LAD stent tomorrow Case and plan were reviewed and discussed with my attending Dr. Rikcey Hope, DO IM Resident PGY-1
--- NOTE | 2018-08-12 16:35 | CP.PCM.PN ---
Subjective - Date & Time of Evaluation Date of Evaluation: 08/12/18 Time of Evaluation: 13:20 - Subjective Subjective: Patient seen and examined at bedside, lying down comfortably. Afebrile and in no acute distress. Denies cough, chest pain, fever/chills. Echocardiogram on 08/10 showed EF of 20%. Hgb: 10.7 Hct: 30.9 BUN: 26 Glucose: 143 ProBNP: 3450 H Troponin I negative x3 Negative flu. 08/09 blood culture: no growth after 48 hours. Gram stain pending. Continue Lasix and Nebulizer. Pt will benefit from Life Vest. 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 Possible left heart catheter procedure planned. Objective - Vital Signs/Intake and Output Vital Signs (last 24 hours): Temp Pulse Resp BP Pulse Ox 97.5 F L 74 20 117/73 94 L 08/12/18 15:19 08/12/18 15:19 08/12/18 15:19 08/12/18 15:19 08/12/18 15:19 Intake and Output: 08/12/18 08/12/18 06:59 18:59 Intake Total 300 400 Balance 300 400 - Medications Medications: Current Medications Acetaminophen (Tylenol 325mg Tab) 650 mg PO Q6 PRN PRN Reason: Pain, moderate (4-7) Last Admin: 08/10/18 02:07 Dose: 650 mg Albuterol/Ipratropium (Duoneb 3 Mg/0.5 Mg (3 Ml) Ud) 3 ml INH RQ6 [facility] Last Admin: 08/12/18 14:09 Dose: 3 ml Aspirin (Aspirin Chewable) 81 mg PO DAILY [facility] Last Admin: 08/12/18 10:16 Dose: 81 mg Clopidogrel Bisulfate (Plavix) 75 mg PO DAILY [facility] Last Admin: 08/12/18 10:15 Dose: 75 mg Enoxaparin Sodium (Lovenox) 40 mg SC DAILY [facility] Last Admin: 08/12/18 10:16 Dose: 40 mg Furosemide (Lasix) 40 mg IVP DAILY [facility] Last Admin: 08/12/18 10:15 Dose: 40 mg Gabapentin (Neurontin) 400 mg PO QAM [facility] Last Admin: 08/12/18 10:16 Dose: 400 mg Gabapentin (Neurontin) 800 mg PO QPM [facility] Last Admin: 08/11/18 17:53 Dose: 800 mg Insulin Aspart (Novolog Mix 70/30 (70/30 Units/Ml)) 18 units SC ACBD [facility] Last Admin: 08/12/18 10:16 Dose: Not Given Insulin Human Regular (Novolin R) 0 unit SC ACHS [facility]; Protocol Last Admin: 08/12/18 11:49 Dose: Not Given Losartan Potassium (Cozaar) 100 mg PO DAILY [facility] Last Admin: 08/12/18 10:15 Dose: 100 mg Metformin HCl (Glucophage) 850 mg PO BIDCC [facility] Last Admin: 08/12/18 09:00 Dose: 850 mg Metoprolol Succinate (Toprol Xl) 50 mg PO DAILY [facility] Last Admin: 08/12/18 10:16 Dose: 50 mg Rosuvastatin Calcium (Crestor) 5 mg PO HS [facility] Last Admin: 08/11/18 21:21 Dose: 5 mg Sitagliptin Phosphate (Januvia) 100 mg PO DAILY [facility] Last Admin: 08/12/18 10:16 Dose: 100 mg - Labs Labs: 08/11/18 06:44 08/11/18 06:44 PT 12.0 SECONDS (9.7-12.2) 08/09/18 19:48 INR 1.1 08/09/18 19:48 APTT 31 SECONDS (21-34) 08/09/18 19:48 Assessment and Plan (1) CHF (congestive heart failure) Status: Acute (2) COPD (chronic obstructive pulmonary disease) with acute bronchitis Status: Acute
--- NOTE | 2018-08-12 21:49 | CP.PCM.PN ---
Subjective - Subjective Subjective: dictated Objective - Vital Signs/Intake and Output Vital Signs (last 24 hours): Temp Pulse Resp BP Pulse Ox 97.5 F L 74 20 117/73 94 L 08/12/18 15:19 08/12/18 15:19 08/12/18 15:19 08/12/18 15:19 08/12/18 15:19 Intake and Output: 08/12/18 08/13/18 18:59 06:59 Intake Total 400 Balance 400 - Medications Medications: Current Medications Acetaminophen (Tylenol 325mg Tab) 650 mg PO Q6 PRN PRN Reason: Pain, moderate (4-7) Last Admin: 08/10/18 02:07 Dose: 650 mg Albuterol/Ipratropium (Duoneb 3 Mg/0.5 Mg (3 Ml) Ud) 3 ml INH RQ6 [facility] Last Admin: 08/12/18 20:03 Dose: 3 ml Aspirin (Aspirin Chewable) 81 mg PO DAILY [facility] Last Admin: 08/12/18 10:16 Dose: 81 mg Clopidogrel Bisulfate (Plavix) 75 mg PO DAILY [facility] Last Admin: 08/12/18 10:15 Dose: 75 mg Enoxaparin Sodium (Lovenox) 40 mg SC DAILY [facility] Last Admin: 08/12/18 10:16 Dose: 40 mg Furosemide (Lasix) 40 mg IVP DAILY [facility] Last Admin: 08/12/18 10:15 Dose: 40 mg Gabapentin (Neurontin) 400 mg PO QAM [facility] Last Admin: 08/12/18 10:16 Dose: 400 mg Gabapentin (Neurontin) 800 mg PO QPM [facility] Last Admin: 08/12/18 18:28 Dose: 800 mg Insulin Aspart (Novolog Mix 70/30 (70/30 Units/Ml)) 18 units SC ACBD [facility] Last Admin: 08/12/18 18:28 Dose: 18 units Insulin Human Regular (Novolin R) 0 unit SC ACHS [facility]; Protocol Last Admin: 08/12/18 17:46 Dose: 1 units Losartan Potassium (Cozaar) 100 mg PO DAILY [facility] Last Admin: 08/12/18 10:15 Dose: 100 mg Metformin HCl (Glucophage) 850 mg PO BIDCC [facility] Last Admin: 08/12/18 17:45 Dose: 850 mg Metoprolol Succinate (Toprol Xl) 50 mg PO DAILY [facility] Last Admin: 08/12/18 10:16 Dose: 50 mg Rosuvastatin Calcium (Crestor) 5 mg PO HS [facility] Last Admin: 08/11/18 21:21 Dose: 5 mg Sitagliptin Phosphate (Januvia) 100 mg PO DAILY [facility] Last Admin: 08/12/18 10:16 Dose: 100 mg - Labs Labs: 08/11/18 06:44 08/11/18 06:44 PT 12.0 SECONDS (9.7-12.2) 08/09/18 19:48 INR 1.1 08/09/18 19:48 APTT 31 SECONDS (21-34) 08/09/18 19:48
[2018-08-13] MEDS: Albuterol-Ipratrop 3 mg / 0.5 (3 ml) UD INH SCH ×4 (02:05→19:29)
--- NOTE | 2018-08-13 02:10 | PN ---
DATE: 08/12/2018 SUBJECTIVE: The patient, Antoine, is for evaluation in a.m. by Cardiology. The patient in the meantime is less short of breath. He has cough. No chest pain. PHYSICAL EXAMINATION: VITAL SIGNS: Blood pressure 117/73, pulse 74, respiratory rate 20, and temperature 97.5. LUNGS: Bilateral basal rales, one third of the lung field. CARDIOVASCULAR SYSTEM: S1 and S2, plus S3 positive. ABDOMEN: Soft. Nontender. Bowel sounds are positive. ASSESSMENT: 1. Congestive heart failure with an ejection fraction of less than 20%. Evaluation by Cardiology. 2. Coronary artery disease with history of stent. 3. Hypertension. 4. Diabetes. PLAN: Evaluation in the a.m. Monitor the patient. The patient will need further workup. Esau Gordillo MD
[2018-08-13] MEDS: (Novolin R) Insulin Human Regular 100 units/ml vial SC SCH ×4 (08:00→21:55)
--- NOTE | 2018-08-13 09:23 | CP.PCM.PN ---
Subjective - Date & Time of Evaluation Date of Evaluation: 08/13/18 Time of Evaluation: 08:40 - Subjective Subjective: Amandeep Hope DO, PGY-1 Cardiology Progress Note for Dr. Lang Patient was seen and examined at bedside this AM. He offers no new complaints this AM and states his SOB has improved since admission. Objective - Vital Signs/Intake and Output Vital Signs (last 24 hours): Temp Pulse Resp BP Pulse Ox 97.5 F L 77 20 120/79 99 08/13/18 07:00 08/13/18 07:00 08/13/18 07:00 08/13/18 07:00 08/13/18 07:00 Intake and Output: 08/13/18 08/13/18 06:59 18:59 Intake Total 350 Balance 350 - Medications Medications: Current Medications Acetaminophen (Tylenol 325mg Tab) 650 mg PO Q6 PRN PRN Reason: Pain, moderate (4-7) Last Admin: 08/10/18 02:07 Dose: 650 mg Albuterol/Ipratropium (Duoneb 3 Mg/0.5 Mg (3 Ml) Ud) 3 ml INH RQ6 [facility] Last Admin: 08/13/18 07:05 Dose: 3 ml Aspirin (Aspirin Chewable) 81 mg PO DAILY [facility] Last Admin: 08/12/18 10:16 Dose: 81 mg Clopidogrel Bisulfate (Plavix) 75 mg PO DAILY [facility] Last Admin: 08/12/18 10:15 Dose: 75 mg Enoxaparin Sodium (Lovenox) 40 mg SC DAILY [facility] Last Admin: 08/12/18 10:16 Dose: 40 mg Furosemide (Lasix) 40 mg IVP DAILY [facility] Last Admin: 08/12/18 10:15 Dose: 40 mg Gabapentin (Neurontin) 400 mg PO QAM [facility] Last Admin: 08/12/18 10:16 Dose: 400 mg Gabapentin (Neurontin) 800 mg PO QPM [facility] Last Admin: 08/12/18 18:28 Dose: 800 mg Insulin Aspart (Novolog Mix 70/30 (70/30 Units/Ml)) 18 units SC ACBD [facility] Last Admin: 08/12/18 18:28 Dose: 18 units Insulin Human Regular (Novolin R) 0 unit SC ACHS [facility]; Protocol Last Admin: 08/12/18 22:06 Dose: Not Given Losartan Potassium (Cozaar) 100 mg PO DAILY [facility] Last Admin: 08/12/18 10:15 Dose: 100 mg Metformin HCl (Glucophage) 850 mg PO BIDCC [facility] Last Admin: 08/13/18 09:00 Dose: 850 mg Metoprolol Succinate (Toprol Xl) 50 mg PO DAILY [facility] Last Admin: 08/12/18 10:16 Dose: 50 mg Rosuvastatin Calcium (Crestor) 5 mg PO HS [facility] Last Admin: 08/12/18 22:11 Dose: 5 mg Sitagliptin Phosphate (Januvia) 100 mg PO DAILY [facility] Last Admin: 08/12/18 10:16 Dose: 100 mg - Labs Labs: 08/11/18 06:44 08/11/18 06:44 PT 12.0 SECONDS (9.7-12.2) 08/09/18 19:48 INR 1.1 08/09/18 19:48 APTT 31 SECONDS (21-34) 08/09/18 19:48 - Constitutional Appears: Non-toxic, No Acute Distress - Head Exam Head Exam: ATRAUMATIC, NORMOCEPHALIC - Eye Exam Eye Exam: EOMI, Normal appearance, PERRL - ENT Exam ENT Exam: Mucous Membranes Moist - Neck Exam Neck Exam: Full ROM, Normal Inspection - Respiratory Exam Respiratory Exam: Clear to Ausculation Bilateral, NORMAL BREATHING PATTERN. absent: Rales, Rhonchi, Wheezes - Cardiovascular Exam Cardiovascular Exam: REGULAR RHYTHM, RRR, +S1, +S2. absent: Gallop, Rubs, Murmur - GI/Abdominal Exam GI & Abdominal Exam: Soft, Normal Bowel Sounds. absent: Tenderness - Extremities Exam Extremities Exam: Full ROM. absent: Pedal Edema - Back Exam Back Exam: Full ROM, NORMAL INSPECTION - Neurological Exam Neurological Exam: Alert, Awake, Oriented x3 - Psychiatric Exam Psychiatric exam: Normal Affect, Normal Mood - Skin Skin Exam: Dry, Intact, Warm Assessment and Plan - Assessment and Plan (Free Text) Assessment: 63 yo M with PMH of CAD s/p PCI of mLAD in 08/24, repeat cath in 12/24 admitted for worsening SOB x 3 weeks. He was subsequently found to be in acute CHF exacerbation with estimated EF of 32% on TTE. Plan: 1. Acute systolic CHF exacerbation New onset, may be 2/2 worsening CAD exacerbated by recent traumatic accident Continue IV lasix, BB, ARB Plan for re-evaluation of LAD stent with FFR/IVUS L heart cath scheduled for tomorrow AM at [facility] 2. Hx CAD Continue ASA, plavix, crestor Plan for L heart cath and re-evaluation of LAD stent tomorrow Case and plan were reviewed and discussed with my attending Dr. Rickey Hope, DO IM Resident PGY-1
[2018-08-13] MEDS: Metoprolol Succinate 50 mg XL Tab PO SCH (09:33)
[2018-08-13] MEDS: Enoxaparin 40 mg Syringe SC SCH (09:33)
[2018-08-13] MEDS: (Novolog Mix 70/30) Insulin Aspart/Insulin Aspar 100 units/ml SC SCH ×2 (10:29→17:58)
--- NOTE | 2018-08-13 18:26 | CP.PCM.PN ---
Subjective - Date & Time of Evaluation Date of Evaluation: 08/13/18 Time of Evaluation: 10:45 - Subjective Subjective: The patient seen and examined Breathing better Afebrile No chest pain Objective - Vital Signs/Intake and Output Vital Signs (last 24 hours): Temp Pulse Resp BP Pulse Ox 97.5 F L 80 20 124/81 100 08/13/18 16:30 08/13/18 16:30 08/13/18 16:30 08/13/18 16:30 08/13/18 16:30 Intake and Output: 08/13/18 08/13/18 06:59 18:59 Intake Total 350 480 Balance 350 480 - Medications Medications: Current Medications Acetaminophen (Tylenol 325mg Tab) 650 mg PO Q6 PRN PRN Reason: Pain, moderate (4-7) Last Admin: 08/13/18 10:27 Dose: 650 mg Albuterol/Ipratropium (Duoneb 3 Mg/0.5 Mg (3 Ml) Ud) 3 ml INH RQ6 [facility] Last Admin: 08/13/18 13:58 Dose: 3 ml Aspirin (Aspirin Chewable) 81 mg PO DAILY [facility] Last Admin: 08/13/18 09:32 Dose: 81 mg Clopidogrel Bisulfate (Plavix) 75 mg PO DAILY [facility] Last Admin: 08/13/18 09:32 Dose: 75 mg Enoxaparin Sodium (Lovenox) 40 mg SC DAILY [facility] Last Admin: 08/13/18 09:33 Dose: 40 mg Furosemide (Lasix) 40 mg IVP DAILY [facility] Last Admin: 08/13/18 09:33 Dose: 40 mg Gabapentin (Neurontin) 400 mg PO QAM [facility] Last Admin: 08/13/18 10:33 Dose: 400 mg Gabapentin (Neurontin) 800 mg PO QPM [facility] Last Admin: 08/13/18 17:59 Dose: 800 mg Insulin Aspart (Novolog Mix 70/30 (70/30 Units/Ml)) 18 units SC ACBD [facility] Last Admin: 08/13/18 17:58 Dose: 18 units Insulin Human Regular (Novolin R) 0 unit SC ACHS [facility]; Protocol Last Admin: 08/13/18 17:58 Dose: Not Given Losartan Potassium (Cozaar) 100 mg PO DAILY [facility] Last Admin: 08/13/18 09:33 Dose: 100 mg Metformin HCl (Glucophage) 850 mg PO BIDCC [facility] Last Admin: 12/06/18 18:00 Dose: 850 mg Metoprolol Succinate (Toprol Xl) 50 mg PO DAILY [facility] Last Admin: 08/13/18 09:33 Dose: 50 mg Rosuvastatin Calcium (Crestor) 5 mg PO HS [facility] Last Admin: 08/12/18 22:11 Dose: 5 mg Sitagliptin Phosphate (Januvia) 100 mg PO DAILY [facility] Last Admin: 08/13/18 09:36 Dose: 100 mg - Labs Labs: 08/11/18 06:44 08/11/18 06:44 PT 12.0 SECONDS (9.7-12.2) 08/09/18 19:48 INR 1.1 08/09/18 19:48 APTT 31 SECONDS (21-34) 08/09/18 19:48 - Head Exam Head Exam: ATRAUMATIC - ENT Exam ENT Exam: Mucous Membranes Moist - Neck Exam Neck Exam: Normal Inspection - Respiratory Exam Respiratory Exam: Clear to Ausculation Bilateral - Cardiovascular Exam Cardiovascular Exam: REGULAR RHYTHM Assessment and Plan (1) CHF (congestive heart failure) Assessment & Plan: Continue diuretics Continue present treatment as per cardiology Followup if necessary Status: Acute (2) COPD (chronic obstructive pulmonary disease) with acute bronchitis Status: Acute
--- NOTE | 2018-08-13 23:41 | CP.PCM.PN ---
Subjective - Subjective Subjective: dictated Objective - Vital Signs/Intake and Output Vital Signs (last 24 hours): Temp Pulse Resp BP Pulse Ox 97.5 F L 80 20 124/81 100 08/13/18 16:30 08/13/18 16:30 08/13/18 16:30 08/13/18 16:30 08/13/18 16:30 Intake and Output: 08/13/18 08/14/18 18:59 06:59 Intake Total 480 300 Balance 480 300 - Medications Medications: Current Medications Acetaminophen (Tylenol 325mg Tab) 650 mg PO Q6 PRN PRN Reason: Pain, moderate (4-7) Last Admin: 08/13/18 10:27 Dose: 650 mg Albuterol/Ipratropium (Duoneb 3 Mg/0.5 Mg (3 Ml) Ud) 3 ml INH RQ6 [facility] Last Admin: 08/13/18 19:29 Dose: 3 ml Aspirin (Aspirin Chewable) 81 mg PO DAILY [facility] Last Admin: 08/13/18 09:32 Dose: 81 mg Clopidogrel Bisulfate (Plavix) 75 mg PO DAILY [facility] Last Admin: 08/13/18 09:32 Dose: 75 mg Enoxaparin Sodium (Lovenox) 40 mg SC DAILY [facility] Last Admin: 08/13/18 09:33 Dose: 40 mg Furosemide (Lasix) 40 mg IVP DAILY [facility] Last Admin: 08/13/18 09:33 Dose: 40 mg Gabapentin (Neurontin) 400 mg PO QAM [facility] Last Admin: 08/13/18 10:33 Dose: 400 mg Gabapentin (Neurontin) 800 mg PO QPM [facility] Last Admin: 08/13/18 17:59 Dose: 800 mg Insulin Aspart (Novolog Mix 70/30 (70/30 Units/Ml)) 18 units SC ACBD [facility] Last Admin: 08/13/18 17:58 Dose: 18 units Insulin Human Regular (Novolin R) 0 unit SC ACHS [facility]; Protocol Last Admin: 08/13/18 21:55 Dose: Not Given Losartan Potassium (Cozaar) 100 mg PO DAILY [facility] Last Admin: 08/13/18 09:33 Dose: 100 mg Metformin HCl (Glucophage) 850 mg PO BIDCC [facility] Last Admin: 08/13/18 18:00 Dose: 850 mg Metoprolol Succinate (Toprol Xl) 50 mg PO DAILY [facility] Last Admin: 08/13/18 09:33 Dose: 50 mg Rosuvastatin Calcium (Crestor) 5 mg PO HS [facility] Last Admin: 08/13/18 21:55 Dose: 5 mg Sitagliptin Phosphate (Januvia) 100 mg PO DAILY [facility] Last Admin: 08/13/18 09:36 Dose: 100 mg - Labs Labs: 08/11/18 06:44 08/11/18 06:44 PT 12.0 SECONDS (9.7-12.2) 08/09/18 19:48 INR 1.1 08/09/18 19:48 APTT 31 SECONDS (21-34) 08/09/18 19:48
[2018-08-14] MEDS: Albuterol-Ipratrop 3 mg / 0.5 (3 ml) UD INH SCH ×4 (02:20→20:38)
[2018-08-14] MEDS: (Novolin R) Insulin Human Regular 100 units/ml vial SC SCH ×4 (07:55→22:41)
[2018-08-14] MEDS: (Novolog Mix 70/30) Insulin Aspart/Insulin Aspar 100 units/ml SC SCH ×2 (07:56→18:19)
[2018-08-14] MEDS: Enoxaparin 40 mg Syringe SC SCH (11:05)
[2018-08-14] MEDS: Metoprolol Succinate 50 mg XL Tab PO SCH (11:05)
--- NOTE | 2018-08-14 11:15 | CP.PCM.PN ---
Subjective - Date & Time of Evaluation Date of Evaluation: 08/14/18 Time of Evaluation: 09:30 - Subjective Subjective: Amandeep Hope DO, PGY-1 Cardiology Progress Note for Dr. Lang Patient was seen and examined at bedside at [facility] prior to PCI this AM. He offers no new complaints and states he feels fine. He is now s/p PCI and will be sun sferred back to [facility] after 3 hours. Objective - Vital Signs/Intake and Output Vital Signs (last 24 hours): Temp Pulse Resp BP Pulse Ox 97.4 F L 82 20 108/68 97 08/13/18 23:10 08/14/18 01:00 08/13/18 23:10 08/13/18 23:10 08/13/18 23:10 Intake and Output: 08/14/18 08/14/18 06:59 18:59 Intake Total 300 Balance 300 - Medications Medications: Current Medications Acetaminophen (Tylenol 325mg Tab) 650 mg PO Q6 PRN PRN Reason: Pain, moderate (4-7) Last Admin: 08/13/18 10:27 Dose: 650 mg Albuterol/Ipratropium (Duoneb 3 Mg/0.5 Mg (3 Ml) Ud) 3 ml INH RQ6 [facility] Last Admin: 08/14/18 02:20 Dose: 3 ml Aspirin (Aspirin Chewable) 81 mg PO DAILY [facility] Last Admin: 08/14/18 11:04 Dose: Not Given Clopidogrel Bisulfate (Plavix) 75 mg PO DAILY [facility] Last Admin: 08/14/18 11:05 Dose: Not Given Enoxaparin Sodium (Lovenox) 40 mg SC DAILY [facility] Last Admin: 08/14/18 11:05 Dose: Not Given Furosemide (Lasix) 40 mg IVP DAILY [facility] Last Admin: 08/14/18 11:05 Dose: Not Given Gabapentin (Neurontin) 400 mg PO QAM [facility] Last Admin: 08/14/18 11:05 Dose: Not Given Gabapentin (Neurontin) 800 mg PO QPM [facility] Last Admin: 08/13/18 17:59 Dose: 800 mg Insulin Aspart (Novolog Mix 70/30 (70/30 Units/Ml)) 18 units SC ACBD [facility] Last Admin: 08/14/18 07:56 Dose: Not Given Insulin Human Regular (Novolin R) 0 unit SC ACHS [facility]; Protocol Last Admin: 08/14/18 07:55 Dose: Not Given Losartan Potassium (Cozaar) 100 mg PO DAILY [facility] Last Admin: 08/14/18 11:04 Dose: Not Given Metformin HCl (Glucophage) 850 mg PO BIDCC [facility] Last Admin: 08/14/18 07:58 Dose: Not Given Metoprolol Succinate (Toprol Xl) 50 mg PO DAILY [facility] Last Admin: 08/14/18 11:05 Dose: Not Given Rosuvastatin Calcium (Crestor) 5 mg PO HS [facility] Last Admin: 08/13/18 21:55 Dose: 5 mg Sitagliptin Phosphate (Januvia) 100 mg PO DAILY [facility] Last Admin: 08/14/18 11:05 Dose: Not Given - Labs Labs: 08/11/18 06:44 08/11/18 06:44 PT 12.0 SECONDS (9.7-12.2) 08/09/18 19:48 INR 1.1 08/09/18 19:48 APTT 31 SECONDS (21-34) 08/09/18 19:48 - Constitutional Appears: Non-toxic, No Acute Distress - Head Exam Head Exam: ATRAUMATIC, NORMOCEPHALIC - Eye Exam Eye Exam: EOMI, Normal appearance, PERRL - ENT Exam ENT Exam: Mucous Membranes Moist - Neck Exam Neck Exam: Full ROM, Normal Inspection - Respiratory Exam Respiratory Exam: Clear to Ausculation Bilateral, NORMAL BREATHING PATTERN. absent: Rales, Rhonchi, Wheezes - Cardiovascular Exam Cardiovascular Exam: REGULAR RHYTHM, RRR, +S1, +S2. absent: Gallop, Rubs, Murmur - GI/Abdominal Exam GI & Abdominal Exam: Soft. absent: Tenderness - Extremities Exam Extremities Exam: Normal Inspection. absent: Pedal Edema - Neurological Exam Neurological Exam: Alert, Awake, Oriented x3 - Psychiatric Exam Psychiatric exam: Normal Affect, Normal Mood - Skin Skin Exam: Dry, Intact, Warm Assessment and Plan - Assessment and Plan (Free Text) Assessment: 63 yo M with PMH of CAD s/p PCI of mLAD in 08/24, repeat cath in 12/24 admitted for worsening SOB x 3 weeks. He was subsequently found to be in acute CHF exacerbation with estimated EF of 32% on TTE. Now s/p PCI completed this AM at [facility]. Plan: 1. Acute systolic CHF exacerbation New onset, may be 2/2 worsening CAD exacerbated by recent traumatic accident Continue IV lasix, BB, ARB Plan for re-evaluation of LAD stent with FFR/IVUS L heart cath scheduled for tomorrow AM at [facility] 2. Hx CAD Continue ASA, plavix, crestor Plan for L heart cath and re-evaluation of LAD stent tomorrow Case and plan were reviewed and discussed with my attending Dr. Rickey Hope, DO IM Resident PGY-1
--- NOTE | 2018-08-14 22:38 | CP.PCM.PN ---
Subjective - Subjective Subjective: dictated Objective - Vital Signs/Intake and Output Vital Signs (last 24 hours): Temp Pulse Resp BP Pulse Ox 97.9 F 88 20 131/84 97 08/14/18 17:00 08/14/18 19:29 08/14/18 17:00 08/14/18 17:00 08/14/18 17:00 - Medications Medications: Current Medications Acetaminophen (Tylenol 325mg Tab) 650 mg PO Q6 PRN PRN Reason: Pain, moderate (4-7) Last Admin: 08/14/18 18:13 Dose: 650 mg Albuterol/Ipratropium (Duoneb 3 Mg/0.5 Mg (3 Ml) Ud) 3 ml INH RQ6 [facility] Last Admin: 08/14/18 20:38 Dose: 3 ml Aspirin (Aspirin Chewable) 81 mg PO DAILY [facility] Last Admin: 08/14/18 11:04 Dose: Not Given Clopidogrel Bisulfate (Plavix) 75 mg PO DAILY [facility] Last Admin: 08/14/18 11:05 Dose: Not Given Enoxaparin Sodium (Lovenox) 40 mg SC DAILY [facility] Last Admin: 08/14/18 11:05 Dose: Not Given Furosemide (Lasix) 40 mg IVP DAILY [facility] Last Admin: 08/14/18 11:05 Dose: Not Given Gabapentin (Neurontin) 400 mg PO QAM [facility] Last Admin: 08/14/18 11:05 Dose: Not Given Gabapentin (Neurontin) 800 mg PO QPM [facility] Last Admin: 08/14/18 18:21 Dose: 800 mg Insulin Aspart (Novolog Mix 70/30 (70/30 Units/Ml)) 18 units SC ACBD [facility] Last Admin: 08/14/18 18:19 Dose: 18 units Insulin Human Regular (Novolin R) 0 unit SC [facility]; Protocol Last Admin: 08/14/18 18:18 Dose: 1 units Losartan Potassium (Cozaar) 100 mg PO DAILY [facility] Last Admin: 08/14/18 11:04 Dose: Not Given Metformin HCl (Glucophage) 850 mg PO BIDCC [facility] Last Admin: 08/14/18 18:21 Dose: 850 mg Metoprolol Succinate (Toprol Xl) 50 mg PO DAILY [facility] Last Admin: 08/14/18 11:05 Dose: Not Given Rosuvastatin Calcium (Crestor) 5 mg PO HS [facility] Last Admin: 08/14/18 21:50 Dose: 5 mg Sitagliptin Phosphate (Januvia) 100 mg PO DAILY [facility] Last Admin: 08/14/18 11:05 Dose: Not Given - Labs Labs: 08/11/18 06:44 08/11/18 06:44 PT 12.0 SECONDS (9.7-12.2) 08/09/18 19:48 INR 1.1 08/09/18 19:48 APTT 31 SECONDS (21-34) 08/09/18 19:48
--- NOTE | 2018-08-15 03:12 | PN ---
DATE: 08/14/2018 SUBJECTIVE: The patient is for cardia cath today. The patient has less short breath, less edema, decreased chest pain. No nausea or vomiting. PHYSICAL EXAMINATION: VITAL SIGNS: Blood pressure 131/84, pulse 92, respiratory 20, temperature 97.9. LUNGS: Bilateral basal crepitation CARDIOVASCULAR SYSTEM: S1, S2 regular. ABDOMEN: Soft, nontender. Bowel sounds are positive. ASSESSMENT: 1. Congestive heart failure exacerbation. 2. Coronary artery disease, status post myocardial infarction. 3. Hypertension. 4. Hyperlipidemia. 5. Type 2 diabetes. PLAN: The patient is for cardiac cath today. Esau Gordillo MD
[2018-08-15] MEDS: Albuterol-Ipratrop 3 mg / 0.5 (3 ml) UD INH SCH ×3 (04:01→13:45)
[2018-08-15 06:14] LABS: BASO # 0.1 K/uL (0.0-0.2); BASO % 1.1 % (0.0-2.0); EOS # 0.2 K/uL (0.0-0.7); EOS % 3.1 % (0.0-4.0); HEMOGLOBIN 10.6 g/dL (12.0-18.0); LYMPH # 0.8 K/uL (1.0-4.3); LYMPH % 15.5 % (20.0-40.0); MEAN CELL VOLUME 87.1 fL (80.0-94.0); MEAN CORPUSCULAR HEMOGLOBIN 29.6 pg (27.0-31.0); MEAN PLATELET VOLUME 8.7 fL (7.2-11.7); MONO # 0.4 K/uL (0.0-0.8); MONO % 7.6 % (0.0-10.0); NEUT # 3.8 K/uL (1.8-7.0); NEUT % 72.7 % (50.0-75.0); RBC 3.6 Mil/uL (4.40-5.90); RED CELL DISTRIBUTION WIDTH 13.4 % (11.5-14.5); WHITE BLOOD COUNT 5.2 K/uL (4.8-10.8)
[2018-08-15 06:30] LABS: BLOOD UREA NITROGEN 26 mg/dL (9-20); CALCIUM 8.9 mg/dl (8.6-10.4); GFR NON-AFRICAN AMERICAN > 60
[2018-08-15] MEDS: (Novolog Mix 70/30) Insulin Aspart/Insulin Aspar 100 units/ml SC SCH ×2 (08:30→18:36)
[2018-08-15] MEDS: (Novolin R) Insulin Human Regular 100 units/ml vial SC SCH ×4 (08:33→23:42)
[2018-08-15] MEDS: Metoprolol Succinate 50 mg XL Tab PO SCH (09:27)
[2018-08-15] MEDS: Enoxaparin 40 mg Syringe SC SCH (09:28)
--- NOTE | 2018-08-15 22:50 | CP.PCM.PN ---
Subjective - Subjective Subjective: dictated Objective - Vital Signs/Intake and Output Vital Signs (last 24 hours): Temp Pulse Resp BP Pulse Ox 97.4 F L 86 20 123/98 H 98 08/15/18 15:32 08/15/18 17:10 08/15/18 15:32 08/15/18 15:32 08/15/18 15:32 Intake and Output: 08/15/18 08/16/18 18:59 06:59 Intake Total 200 Balance 200 - Medications Medications: Current Medications Acetaminophen (Tylenol 325mg Tab) 650 mg PO Q6 PRN PRN Reason: Pain, moderate (4-7) Last Admin: 08/14/18 18:13 Dose: 650 mg Aspirin (Aspirin Chewable) 81 mg PO DAILY [facility] Last Admin: 08/15/18 09:28 Dose: 81 mg Clopidogrel Bisulfate (Plavix) 75 mg PO DAILY [facility] Last Admin: 08/15/18 09:28 Dose: 75 mg Enoxaparin Sodium (Lovenox) 40 mg SC DAILY [facility] Last Admin: 08/15/18 09:28 Dose: 40 mg Furosemide (Lasix) 40 mg IVP DAILY [facility] Last Admin: 08/15/18 09:27 Dose: 40 mg Gabapentin (Neurontin) 400 mg PO QAM [facility] Last Admin: 08/15/18 09:28 Dose: 400 mg Gabapentin (Neurontin) 800 mg PO QPM [facility] Last Admin: 08/15/18 18:35 Dose: 800 mg Insulin Aspart (Novolog Mix 70/30 (70/30 Units/Ml)) 18 units SC ACBD [facility] Last Admin: 08/15/18 18:36 Dose: 18 units Insulin Human Regular (Novolin R) 0 unit SC ACHS [facility]; Protocol Last Admin: 08/15/18 18:38 Dose: Not Given Losartan Potassium (Cozaar) 100 mg PO DAILY [facility] Last Admin: 08/15/18 09:27 Dose: 100 mg Metformin HCl (Glucophage) 850 mg PO BIDCC [facility] Last Admin: 08/15/18 18:36 Dose: 850 mg Metoprolol Succinate (Toprol Xl) 50 mg PO DAILY [facility] Last Admin: 08/15/18 09:27 Dose: 50 mg Rosuvastatin Calcium (Crestor) 5 mg PO HS [facility] Last Admin: 08/14/18 21:50 Dose: 5 mg Sitagliptin Phosphate (Januvia) 100 mg PO DAILY [facility] Last Admin: 08/15/18 09:27 Dose: 100 mg - Labs Labs: 08/15/18 06:08 08/15/18 06:08 PT 12.0 SECONDS (9.7-12.2) 08/09/18 19:48 INR 1.1 08/09/18 19:48 APTT 31 SECONDS (21-34) 08/09/18 19:48
--- NOTE | 2018-08-16 04:05 | PN ---
DATE: 08/15/2018 SUBJECTIVE: The patient had angioplasty done and the patient is back. Case discussed with Cardiology. The patient is for repeat echocardiogram on Friday. He feels much better. He is comfortable. PHYSICAL EXAMINATION: VITAL SIGNS: Blood pressure 123/98, pulse 88, respiratory rate 20, temperature 97.4. LUNGS: Bilateral basal rales. No rhonchi. CARDIOVASCULAR SYSTEM: S1, S2, plus, S3 positive. ABDOMEN: Soft. ASSESSMENT: 1. Ischemic heart disease with left ventricular ejection fraction of less than 20%. 2. Coronary artery disease, status post angioplasty. 3. Hypertension. PLAN: Echo on Friday. Cardiology followup. Telemetry monitoring. LABORATORY DATA: WBC 5.2, hemoglobin 10.6, hematocrit 31.3, platelets 167. Basic metabolic panel is benign with glucose of 121 to 170. Continue current medication. Monitor the patient. Esau Gordillo MD
[2018-08-16] MEDS: (Novolog Mix 70/30) Insulin Aspart/Insulin Aspar 100 units/ml SC SCH ×2 (07:49→17:03)
[2018-08-16] MEDS: (Novolin R) Insulin Human Regular 100 units/ml vial SC SCH ×4 (07:49→22:02)
[2018-08-16] MEDS: Metoprolol Succinate 50 mg XL Tab PO SCH (09:18)
[2018-08-16] MEDS: Enoxaparin 40 mg Syringe SC SCH (09:18)
--- NOTE | 2018-08-16 14:43 | CP.PCM.PN ---
Subjective - Date & Time of Evaluation Date of Evaluation: 08/16/18 Time of Evaluation: 14:43 - Subjective Subjective: Pulmonary Follow up, Covering Dr Andersen The patient was Seen/interviewed and examined by me at the bedside, Medical records reviewed and Management issues were discussed and formulated with the house staff. Events reviewed Objective - Vital Signs/Intake and Output Vital Signs (last 24 hours): Temp Pulse Resp BP Pulse Ox 98.2 F 81 18 126/80 97 08/16/18 07:00 08/16/18 11:48 08/16/18 07:00 08/16/18 09:19 08/16/18 07:00 Intake and Output: 08/16/18 08/16/18 06:59 18:59 Intake Total 300 Balance 300 - Medications Medications: Current Medications Acetaminophen (Tylenol 325mg Tab) 650 mg PO Q6 PRN PRN Reason: Pain, moderate (4-7) Last Admin: 08/14/18 18:13 Dose: 650 mg Aspirin (Aspirin Chewable) 81 mg PO DAILY [facility] Last Admin: 08/16/18 09:19 Dose: 81 mg Clopidogrel Bisulfate (Plavix) 75 mg PO DAILY [facility] Last Admin: 08/16/18 09:19 Dose: 75 mg Enoxaparin Sodium (Lovenox) 40 mg SC DAILY [facility] Last Admin: 08/16/18 09:18 Dose: 40 mg Furosemide (Lasix) 40 mg IVP DAILY [facility] Last Admin: 08/16/18 09:19 Dose: 40 mg Gabapentin (Neurontin) 400 mg PO QAM [facility] Last Admin: 08/16/18 09:19 Dose: 400 mg Gabapentin (Neurontin) 800 mg PO QPM [facility] Last Admin: 08/15/18 18:35 Dose: 800 mg Insulin Aspart (Novolog Mix 70/30 (70/30 Units/Ml)) 18 units SC ACBD [facility] Last Admin: 08/16/18 07:49 Dose: Not Given Insulin Human Regular (Novolin R) 0 unit SC ACHS [facility]; Protocol Last Admin: 08/16/18 12:15 Dose: Not Given Losartan Potassium (Cozaar) 100 mg PO DAILY [facility] Last Admin: 08/16/18 09:19 Dose: 100 mg Metformin HCl (Glucophage) 850 mg PO BIDCC [facility] Last Admin: 08/16/18 09:18 Dose: 850 mg Metoprolol Succinate (Toprol Xl) 50 mg PO DAILY [facility] Last Admin: 08/16/18 09:18 Dose: 50 mg Rosuvastatin Calcium (Crestor) 5 mg PO HS [facility] Last Admin: 08/15/18 23:41 Dose: 5 mg Sitagliptin Phosphate (Januvia) 100 mg PO DAILY [facility] Last Admin: 08/16/18 09:18 Dose: 100 mg - Labs Labs: 08/15/18 06:08 08/15/18 06:08 PT 12.0 SECONDS (9.7-12.2) 08/09/18 19:48 INR 1.1 08/09/18 19:48 APTT 31 SECONDS (21-34) 08/09/18 19:48
[2018-08-16 16:22] VITALS: RESP 20
[2018-08-16 17:49] LABS: ALB/GLOB RATIO 1.1 (1.0-2.1); ALBUMIN 3.5 g/dL (3.5-5.0); ALT/SGPT 78 U/L (21-72); AST/SGOT 51 U/L (17-59); BLOOD UREA NITROGEN 32 mg/dL (9-20); CALCIUM 8.8 mg/dl (8.6-10.4); GFR NON-AFRICAN AMERICAN 51
--- NOTE | 2018-08-16 20:11 | CP.PCM.PN ---
Subjective - Subjective Subjective: dictated Objective - Vital Signs/Intake and Output Vital Signs (last 24 hours): Temp Pulse Resp BP Pulse Ox 97.9 F 74 20 101/66 97 08/16/18 15:21 08/16/18 15:30 08/16/18 15:21 18 15:21 08/16/18 15:21 Intake and Output: 08/16/18 08/17/18 18:59 06:59 Intake Total 300 Balance 300 - Medications Medications: Current Medications Acetaminophen (Tylenol 325mg Tab) 650 mg PO Q6 PRN PRN Reason: Pain, moderate (4-7) Last Admin: 08/16/18 17:02 Dose: 650 mg Albuterol/Ipratropium (Duoneb 3 Mg/0.5 Mg (3 Ml) Ud) 3 ml INH RQ6 [facility] Aspirin (Aspirin Chewable) 81 mg PO DAILY [facility] Last Admin: 08/16/18 09:19 Dose: 81 mg Clopidogrel Bisulfate (Plavix) 75 mg PO DAILY [facility] Last Admin: 08/16/18 09:19 Dose: 75 mg Enoxaparin Sodium (Lovenox) 40 mg SC DAILY [facility] Last Admin: 08/16/18 09:18 Dose: 40 mg Furosemide (Lasix) 40 mg IVP DAILY [facility] Last Admin: 08/16/18 09:19 Dose: 40 mg Gabapentin (Neurontin) 400 mg PO QAM [facility] Last Admin: 08/16/18 09:19 Dose: 400 mg Gabapentin (Neurontin) 800 mg PO QPM [facility] Last Admin: 08/16/18 17:01 Dose: 800 mg Insulin Aspart (Novolog Mix 70/30 (70/30 Units/Ml)) 18 units SC ACBD [facility] Last Admin: 08/16/18 17:03 Dose: Not Given Insulin Human Regular (Novolin R) 0 unit SC ACHS [facility]; Protocol Last Admin: 08/16/18 17:03 Dose: Not Given Losartan Potassium (Cozaar) 100 mg PO DAILY [facility] Last Admin: 08/16/18 09:19 Dose: 100 mg Metformin HCl (Glucophage) 850 mg PO BIDCC [facility] Last Admin: 08/16/18 17:04 Dose: 850 mg Metoprolol Succinate (Toprol Xl) 50 mg PO DAILY [facility] Last Admin: 08/16/18 09:18 Dose: 50 mg Rosuvastatin Calcium (Crestor) 5 mg PO HS [facility] Last Admin: 08/15/18 23:41 Dose: 5 mg Sitagliptin Phosphate (Januvia) 100 mg PO DAILY [facility] Last Admin: 08/16/18 09:18 Dose: 100 mg - Labs Labs: 08/15/18 06:08 08/16/18 17:09 PT 12.0 SECONDS (9.7-12.2) 08/09/18 19:48 INR 1.1 08/09/18 19:48 APTT 31 SECONDS (21-34) 08/09/18 19:48
[2018-08-17] MEDS: Albuterol-Ipratrop 3 mg / 0.5 (3 ml) UD INH SCH ×4 (01:24→19:53)
--- NOTE | 2018-08-17 03:05 | PN ---
DATE: 08/16/2018 SUBJECTIVE: The patient is for repeat echocardiogram after angioplasty in the a.m. He is less short of breath. No cough. No fever. No chills. No chest pain. PHYSICAL EXAMINATION: VITAL SIGNS: BP 101/66, pulse 79, respiratory rate 20, temperature 97.9. LUNGS: Clear. CARDIOVASCULAR SYSTEM: S1, S2 regular. ABDOMEN: Soft. ASSESSMENT: 1. Coronary artery disease, status post stents. 2. Ischemic cardiomyopathy, congestive heart failure. 3. Hypertension. PLAN: Echocardiogram in the a.m. Further plan of care per Cardiology. Esau Gordillo MD
[2018-08-17 07:13] LABS: BASO % 0.6 % (0.0-2.0); EOS # 0.2 K/uL (0.0-0.7); EOS % 3.8 % (0.0-4.0); HEMOGLOBIN 10.4 g/dL (12.0-18.0); LYMPH # 0.8 K/uL (1.0-4.3); LYMPH % 17.2 % (20.0-40.0); MEAN CELL VOLUME 86.1 fL (80.0-94.0); MEAN CORPUSCULAR HEMOGLOBIN 29.7 pg (27.0-31.0); MEAN CORPUSCULAR HGB CONC 34.5 g/dL (33.0-37.0); MEAN PLATELET VOLUME 9.1 fL (7.2-11.7); MONO # 0.6 K/uL (0.0-0.8); MONO % 11.2 % (0.0-10.0); NEUT # 3.3 K/uL (1.8-7.0); NEUT % 67.2 % (50.0-75.0); RBC 3.49 Mil/uL (4.40-5.90); RED CELL DISTRIBUTION WIDTH 12.9 % (11.5-14.5); WHITE BLOOD COUNT 4.9 K/uL (4.8-10.8)
[2018-08-17] MEDS: (Novolin R) Insulin Human Regular 100 units/ml vial SC SCH ×3 (07:39→23:59)
[2018-08-17] MEDS: (Novolog Mix 70/30) Insulin Aspart/Insulin Aspar 100 units/ml SC SCH ×2 (07:39→17:22)
[2018-08-17] MEDS: Metoprolol Succinate 50 mg XL Tab PO SCH (09:23)
[2018-08-17] MEDS: Enoxaparin 40 mg Syringe SC SCH (09:24)
--- NOTE | 2018-08-17 10:23 | CP.PCM.PN ---
Subjective - Date & Time of Evaluation Date of Evaluation: 08/17/18 Time of Evaluation: 09:15 - Subjective Subjective: Amandeep Hope DO, PGY-1 Cardiology Progress Note for Dr. Lang Patient was seen and examined at bedside this AM. He reports feeling better since admission and states he feels less short of breath. He states he has been able to ambulate without difficulty. He does not complain of any pain or significant swelling at cath site. Objective - Vital Signs/Intake and Output Vital Signs (last 24 hours): Temp Pulse Resp BP Pulse Ox 97.7 F 84 20 117/68 98 08/17/18 07:00 08/17/18 07:29 08/17/18 07:00 08/17/18 09:24 08/17/18 07:00 - Medications Medications: Current Medications Acetaminophen (Tylenol 325mg Tab) 650 mg PO Q6 PRN PRN Reason: Pain, moderate (4-7) Last Admin: 08/16/18 17:02 Dose: 650 mg Albuterol/Ipratropium (Duoneb 3 Mg/0.5 Mg (3 Ml) Ud) 3 ml INH RQ6 [facility] Last Admin: 08/17/18 08:14 Dose: Not Given Aspirin (Aspirin Chewable) 81 mg PO DAILY [facility] Last Admin: 08/17/18 09:23 Dose: 81 mg Clopidogrel Bisulfate (Plavix) 75 mg PO DAILY [facility] Last Admin: 08/17/18 09:23 Dose: 75 mg Enoxaparin Sodium (Lovenox) 40 mg SC DAILY [facility] Last Admin: 08/17/18 09:24 Dose: 40 mg Furosemide (Lasix) 40 mg IVP DAILY [facility] Last Admin: 08/17/18 09:24 Dose: 40 mg Gabapentin (Neurontin) 400 mg PO QAM [facility] Last Admin: 08/17/18 09:23 Dose: 400 mg Gabapentin (Neurontin) 800 mg PO QPM [facility] Last Admin: 08/16/18 17:01 Dose: 800 mg Insulin Aspart (Novolog Mix 70/30 (70/30 Units/Ml)) 18 units SC ACBD [facility] Last Admin: 08/17/18 07:39 Dose: Not Given Insulin Human Regular (Novolin R) 0 unit SC ACHS [facility]; Protocol Last Admin: 08/17/18 07:39 Dose: Not Given Losartan Potassium (Cozaar) 100 mg PO DAILY [facility] Last Admin: 08/17/18 09:23 Dose: 100 mg Metformin HCl (Glucophage) 850 mg PO BIDCC [facility] Last Admin: 08/17/18 08:31 Dose: 850 mg Metoprolol Succinate (Toprol Xl) 50 mg PO DAILY [facility] Last Admin: 08/17/18 09:23 Dose: 50 mg Rosuvastatin Calcium (Crestor) 5 mg PO HS [facility] Last Admin: 08/16/18 21:30 Dose: 5 mg Sitagliptin Phosphate (Januvia) 100 mg PO DAILY [facility] Last Admin: 08/17/18 09:26 Dose: 100 mg - Labs Labs: 08/17/18 07:05 08/16/18 17:09 PT 12.0 SECONDS (9.7-12.2) 08/09/18 19:48 INR 1.1 08/09/18 19:48 APTT 31 SECONDS (21-34) 08/09/18 19:48 - Constitutional Appears: Non-toxic, No Acute Distress - Head Exam Head Exam: ATRAUMATIC, NORMOCEPHALIC - Eye Exam Eye Exam: EOMI, Normal appearance, PERRL - ENT Exam ENT Exam: Mucous Membranes Moist - Neck Exam Neck Exam: Full ROM. absent: Tenderness - Respiratory Exam Respiratory Exam: Rhonchi (coarse breath sounds b/l improved from prior exams). absent: Wheezes - Cardiovascular Exam Cardiovascular Exam: REGULAR RHYTHM, RRR, +S1, +S2. absent: Gallop, Rubs, Murmur - GI/Abdominal Exam GI & Abdominal Exam: Soft, Normal Bowel Sounds. absent: Tenderness - Extremities Exam Extremities Exam: Normal Inspection. absent: Pedal Edema - Back Exam Back Exam: Full ROM, NORMAL INSPECTION - Neurological Exam Neurological Exam: Alert, Awake, Oriented x3 - Psychiatric Exam Psychiatric exam: Normal Affect, Normal Mood Assessment and Plan - Assessment and Plan (Free Text) Assessment: 63 yo M with PMH of CAD s/p PCI of mLAD in 08/24, repeat cath in 12/24 admitted for worsening SOB x 3 weeks. He was subsequently found to be in acute CHF ex acerbation with estimated EF of 32% on TTE. He is now s/p cardiac cath completed on 08/14/18 [place] [facility] [place] No intervention was done during cath. Plan: Acute systolic CHF exacerbation New onset, may be 2/2 worsening CAD exacerbated by recent traumatic accident Cardiac cath at [facility] [place] last [place] showed moderate LAD disease, distal LAD diseased with vasospasm, patent stent in LAD Recommend continued medical management with lasix, BB, ARB Hx CAD LAD stent found to be patent on cardiac cath last Friday Continue medical management with ASA, plavix, crestor Case and plan were reviewed and discussed with my attending Dr. Rickey Hope DO IM Resident PGY-1
--- NOTE | 2018-08-17 22:32 | CP.PCM.PN ---
Subjective - Subjective Subjective: dictated Objective - Vital Signs/Intake and Output Vital Signs (last 24 hours): Temp Pulse Resp BP Pulse Ox 97.9 F 86 20 103/66 95 08/17/18 15:00 08/17/18 15:00 08/17/18 15:00 08/17/18 15:00 08/17/18 15:00 - Medications Medications: Current Medications Acetaminophen (Tylenol 325mg Tab) 650 mg PO Q6 PRN PRN Reason: Pain, moderate (4-7) Last Admin: 08/17/18 10:47 Dose: 650 mg Albuterol/Ipratropium (Duoneb 3 Mg/0.5 Mg (3 Ml) Ud) 3 ml INH RQ6 [facility] Last Admin: 08/17/18 19:53 Dose: Not Given Aspirin (Aspirin Chewable) 81 mg PO DAILY [facility] Last Admin: 08/17/18 09:23 Dose: 81 mg Clopidogrel Bisulfate (Plavix) 75 mg PO DAILY [facility] Last Admin: 08/17/18 09:23 Dose: 75 mg Furosemide (Lasix) 40 mg IVP DAILY [facility] Last Admin: 08/17/18 09:24 Dose: 40 mg Gabapentin (Neurontin) 400 mg PO QAM [facility] Last Admin: 08/17/18 09:23 Dose: 400 mg Gabapentin (Neurontin) 800 mg PO QPM [facility] Last Admin: 08/17/18 19:15 Dose: 800 mg Insulin Aspart (Novolog Mix 70/30 (70/30 Units/Ml)) 18 units SC ACBD [facility] Last Admin: 08/17/18 07:39 Dose: Not Given Insulin Human Regular (Novolin R) 0 unit SC ACHS [facility]; Protocol Last Admin: 08/17/18 12:21 Dose: Not Given Losartan Potassium (Cozaar) 100 mg PO DAILY [facility] Last Admin: 08/17/18 09:23 Dose: 100 mg Metformin HCl (Glucophage) 850 mg PO BIDCC [facility] Last Admin: 08/17/18 19:15 Dose: 850 mg Metoprolol Succinate (Toprol Xl) 50 mg PO DAILY [facility] Last Admin: 08/17/18 09:23 Dose: 50 mg Rosuvastatin Calcium (Crestor) 5 mg PO HS [facility] Last Admin: 08/17/18 21:40 Dose: 5 mg Sitagliptin Phosphate (Januvia) 100 mg PO DAILY [facility] Last Admin: 08/17/18 09:26 Dose: 100 mg - Labs Labs: 08/17/18 07:05 08/16/18 17:09 PT 12.0 SECONDS (9.7-12.2) 08/09/18 19:48 INR 1.1 08/09/18 19:48 APTT 31 SECONDS (21-34) 08/09/18 19:48
[2018-08-18 01:35] VITALS: O2SAT 96
[2018-08-18] MEDS: Albuterol-Ipratrop 3 mg / 0.5 (3 ml) UD INH SCH ×3 (01:36→13:51)
--- NOTE | 2018-08-18 06:59 | PN ---
DATE: 08/17/2018 SUBJECTIVE: The patient feels better. Less short of breath. No chest pain. PHYSICAL EXAMINATION: VITAL SIGNS: Blood pressure 103/66, pulse 86, respiratory rate 20, temperature 97.9. LUNGS: Bilateral basal rales. CARDIOVASCULAR SYSTEM: S1, S2 regular. ABDOMEN: Soft. ASSESSMENT: 1. Congestive heart failure due to ischemic cardiomyopathy. 2. Coronary artery disease status post stent. 3. Hypertension. 4. Diabetes. PLAN: Continue current medication. Monitor the patient. Esau Gordillo MD
[2018-08-18 07:08] VITALS: PULSE 86
[2018-08-18 08:47] VITALS: TEMP 98.2
[2018-08-18] MEDS: Metoprolol Succinate 50 mg XL Tab PO SCH (11:04)
[2018-08-18] MEDS: (Novolog Mix 70/30) Insulin Aspart/Insulin Aspar 100 units/ml SC SCH (11:05)
[2018-08-18] MEDS: (Novolin R) Insulin Human Regular 100 units/ml vial SC SCH ×4 (11:05→13:02)
[2018-08-18 11:06] VITALS: BP 120/79
--- NOTE | 2018-08-18 13:00 | CP.PCM.PN ---
Subjective - Date & Time of Evaluation Date of Evaluation: 08/18/18 Time of Evaluation: 10:40 - Subjective Subjective: Amandeep Hope DO, PGY-1 Cardiology Progress Note for Dr. Lang Patient was seen and examined at bedside this AM. He was examined ambulating in hallway and states he feels fine and ready to go home today. Objective - Vital Signs/Intake and Output Vital Signs (last 24 hours): Temp Pulse Resp BP Pulse Ox 98.2 F 86 20 120/79 96 08/18/18 07:00 08/18/18 07:04 08/18/18 07:00 08/18/18 11:04 08/18/18 07:00 - Medications Medications: Current Medications Acetaminophen (Tylenol 325mg Tab) 650 mg PO Q6 PRN PRN Reason: Pain, moderate (4-7) Last Admin: 08/17/18 10:47 Dose: 650 mg Albuterol/Ipratropium (Duoneb 3 Mg/0.5 Mg (3 Ml) Ud) 3 ml INH RQ6 [facility] Last Admin: 08/18/18 07:41 Dose: 3 ml Aspirin (Aspirin Chewable) 81 mg PO DAILY [facility] Last Admin: 08/18/18 11:04 Dose: 81 mg Clopidogrel Bisulfate (Plavix) 75 mg PO DAILY [facility] Last Admin: 08/18/18 11:04 Dose: 75 mg Furosemide (Lasix) 40 mg IVP DAILY [facility] Last Admin: 08/18/18 11:04 Dose: 40 mg Gabapentin (Neurontin) 400 mg PO QAM [facility] Last Admin: 08/18/18 11:04 Dose: 400 mg Gabapentin (Neurontin) 800 mg PO QPM [facility] Last Admin: 08/17/18 19:15 Dose: 800 mg Insulin Aspart (Novolog Mix 70/30 (70/30 Units/Ml)) 18 units SC ACBD [facility] Last Admin: 08/18/18 11:05 Dose: Not Given Insulin Human Regular (Novolin R) 0 unit SC ACHS [facility]; Protocol Last Admin: 08/18/18 11:07 Dose: Not Given Losartan Potassium (Cozaar) 100 mg PO DAILY [facility] Last Admin: 08/18/18 11:04 Dose: 100 mg Metformin HCl (Glucophage) 850 mg PO BIDCC [facility] Last Admin: 08/18/18 11:04 Dose: 850 mg Metoprolol Succinate (Toprol Xl) 50 mg PO DAILY [facility] Last Admin: 08/18/18 11:04 Dose: 50 mg Rosuvastatin Calcium (Crestor) 5 mg PO HS [facility] Last Admin: 08/17/18 21:40 Dose: 5 mg Sitagliptin Phosphate (Januvia) 100 mg PO DAILY [facility] Last Admin: 08/18/18 11:04 Dose: 100 mg - Labs Labs: 08/17/18 07:05 08/16/18 17:09 PT 12.0 SECONDS (9.7-12.2) 08/09/18 19:48 INR 1.1 08/09/18 19:48 APTT 31 SECONDS (21-34) 08/09/18 19:48 - Constitutional Appears: Non-toxic, No Acute Distress - Head Exam Head Exam: ATRAUMATIC, NORMOCEPHALIC - Eye Exam Eye Exam: EOMI, Normal appearance, PERRL - ENT Exam ENT Exam: Mucous Membranes Moist - Neck Exam Neck Exam: Full ROM, Normal Inspection - Respiratory Exam Respiratory Exam: Clear to Ausculation Bilateral. absent: Rales, Rhonchi, Wheezes - Cardiovascular Exam Cardiovascular Exam: REGULAR RHYTHM, RRR, +S1, +S2. absent: Gallop, Rubs, Murmur - GI/Abdominal Exam GI & Abdominal Exam: Soft. absent: Guarding, Tenderness - Extremities Exam Extremities Exam: Full ROM, Normal Inspection - Back Exam Back Exam: NORMAL INSPECTION - Neurological Exam Neurological Exam: Alert, Awake, Oriented x3 - Psychiatric Exam Psychiatric exam: Normal Affect, Normal Mood - Skin Skin Exam: Dry, Intact, Warm Assessment and Plan - Assessment and Plan (Free Text) Assessment: 63 yo M with PMH of CAD s/p PCI of mLAD in 08/24, repeat cath in 12/24 admitted for worsening SOB x 3 weeks. He was subsequently found to be in acute CHF exacerbation with estimated EF of 32% on TTE. He is now s/p cardiac cath completed on 08/14/18 at [facility] [place]. No intervention was needed. BNP has down trended to 900 since admission. Plan: Acute systolic CHF exacerbation New onset, may be 2/2 worsening CAD exacerbated by recent traumatic accident Cardiac cath at [facility] [place] last Friday showed moderate LAD disease, distal LAD diseased with vasospasm, patent stent in LAD Recommend continued medical management with lasix, BB, ARB Patient is now ambulating without SOB or other difficulty Stable for discharge and follow up with Dr. Lang within 1 week Hx CAD LAD stent found to be patent on cardiac cath last Friday Continue medical management with ASA, plavix, crestor Case and plan were reviewed and discussed with my attending Dr. Rickey Hope, DO IM Resident PGY-1
--- NOTE | 2018-08-18 16:43 | CP.PCM.PN ---
Subjective - Date & Time of Evaluation Date of Evaluation: 08/18/18 Time of Evaluation: 11:00 - Subjective Subjective: Pateint seen today , denies any chest pain, sob, dizziness, palpitations, oob ambulating the hallway without sob vss and labs reviewed - stable s/p cardiac cath last friday with no intervention Objective - Vital Signs/Intake and Output Vital Signs (last 24 hours): Temp Pulse Resp BP Pulse Ox 98.2 F 86 20 120/79 96 08/18/18 07:00 08/18/18 07:04 08/18/18 07:00 08/18/18 11:04 08/18/18 07:00 Intake and Output: 08/18/18 08/18/18 06:59 18:59 Intake Total 250 Balance 250 - Labs Labs: 08/17/18 07:05 08/16/18 17:09 PT 12.0 SECONDS (9.7-12.2) 08/09/18 19:48 INR 1.1 08/09/18 19:48 APTT 31 SECONDS (21-34) 08/09/18 19:48 Assessment and Plan - Assessment and Plan (Free Text) Assessment: A/P 63 yr old male with pmhx of CAD,s/p stent , Diabetes, HTN, Hypercholesterolemia admitted with exc. CHF s/p Cardiac cath at [facility] [place] last Friday showed moderate LAD disease, distal LAD diseased with vasospasm, patent stent in LAD seen by Dr. Lang today cleared for discharge from cardiology standpoint and Recommends to continue medical management with lasix, BB, ARB and f/u with his office in 1 week D/w Dr. Gordillo, cleared for discharge home today and f/u with Dr. Gordillo in 1 week and ortthopedics in 1 week for the removal of cast Discharge plan discussed with patient who understands and agrees with plan All RX give to patient upon discharge patient instructed to returns to ED if symptoms returns or any other concerning symptoms
--- NOTE | 2018-08-18 16:52 | PCM.HF ---
Heart Failure Core Measure - Heart Failure Ejection Fraction: Less Than 40 % SATINDER Inhibitor Prescribed: No Contraindication/Reason for not providing: on arb Beta-Lakisha Prescribed: Metoprolol Succinate Angiotensin II Receptor Lakisha Prescribed: Yes AnticoagulationTherapy for Atrial Fibrillation/Atrialflutter: No Contraindication/Reason for not providing: no hx of a fib Aldosterone Antagonist Prescribed: No Contraindication/Reason for not providing: on lasix / risk for hyperkalemia and cardiology wwants lasix only Hydralazine Nitrate Prescribed: No Contraindication/Reason for not providing: edie running low Implantable Cardioverter Defibrillator Therapy: No Contraindication/Reason for not providing: s/p recent cath and medical management as per cardiology Cardiac Resynchronization Therapy Prescribed: No Contraindication/Reason for not providing: s/p recent cath and medical management as per cardiology - Follow up Will be discharged to: Home Follow Up Date (must be within 7 days from discharge): 08/24/18 Follow Up Time: 15:00
--- NOTE | 2018-08-18 22:49 | CP.PCM.DIS ---
Provider - Provider Date of Admission: 08/09/18 21:07 Attending physician: Esau Gordillo MD Consults: 08/09/18 21:41 Pulmonology Consult Routine Comment: copd Consulting Provider: Armond Andersen Consulting Physician: Armond Andersen Reason for Consult: copd 08/10/18 19:30 Orthopedic Consult Routine Comment: Consulting Provider: Julia Cordero Consulting Physician: Julia Codrero Reason for Consult: # 08/11/18 15:46 Orthopedic Consult Routine Comment: Consulting Provider: Trudy Smith Consulting Physician: Trudy Smith Reason for Consult: pt has a [facility] Course - Lab Results Lab Results: Micro Results 08/09/18 20:04 Blood Blood Culture - Final NO GROWTH AFTER 5 DAYS 08/09/18 20:04 Blood Gram Stain - Final TEST NOT PERFORMED 08/09/18 20:04 Blood Blood Culture - Final NO GROWTH AFTER 5 DAYS 08/09/18 20:04 Blood Gram Stain - Final TEST NOT PERFORMED Most Recent Lab Values WBC 4.9 K/uL (4.8-10.8) 08/17/18 07:05 RBC 3.49 Mil/uL (4.40-5.90) L 08/17/18 07:05 Hgb 10.4 g/dL (12.0-18.0) L 08/17/18 07:05 Hct 30.1 % (35.0-51.0) L 08/17/18 07:05 MCV 86.1 fL (80.0-94.0) 08/17/18 07:05 MCH 29.7 pg (27.0-31.0) 08/17/18 07:05 MCHC 34.5 g/dL (33.0-37.0) 08/17/18 07:05 RDW 12.9 % (11.5-14.5) 08/17/18 07:05 Plt Count 187 K/uL (130-400) 08/17/18 07:05 MPV 9.1 fL (7.2-11.7) 08/17/18 07:05 Neut % (Auto) 67.2 % (50.0-75.0) 08/17/18 07:05 Lymph % (Auto) 17.2 % (20.0-40.0) L 08/17/18 07:05 Motley % (Auto) 11.2 % (0.0-10.0) H 08/17/18 07:05 Eos % (Auto) 3.8 % (0.0-4.0) 08/17/18 07:05 Baso % (Auto) 0.6 % (0.0-2.0) 08/17/18 07:05 Neut # (Auto) 3.3 K/uL (1.8-7.0) 08/17/18 07:05 Lymph # (Auto) 0.8 K/uL (1.0-4.3) L 08/17/18 07:05 Motley # (Auto) 0.6 K/uL (0.0-0.8) 08/17/18 07:05 Eos # (Auto) 0.2 K/uL (0.0-0.7) 08/17/18 07:05 Baso # (Auto) 0.0 K/uL (0.0-0.2) 08/17/18 07:05 PT 12.0 SECONDS (9.7-12.2) 08/09/18 19:48 INR 1.1 08/09/18 19:48 APTT 31 SECONDS (21-34) 08/09/18 19:48 Puncture Site Rb 08/09/18 20:18 pCO2 35 mm/Hg (35-45) 08/09/18 20:18 pO2 82 mm/Hg (80-100) 08/09/18 20:18 HCO3 24.4 mmol/L (21-28) 08/09/18 20:18 ABG pH 7.43 (7.35-7.45) 08/09/18 20:18 ABG Total CO2 24.3 mmol/L (22-28) 08/09/18 20:18 ABG O2 Saturation 98.5 % (95-98) H 08/09/18 20:18 ABG Base Excess -0.6 mmol/L (-2.0-3.0) 08/09/18 20:18 Moises Test Na 08/09/18 20:18 ABG Potassium 3.9 mmol/L (3.6-5.2) 08/09/18 20:18 Sodium 138.0 mmol/l (132-148) 08/09/18 20:18 Chloride 108.0 mmol/L (98-107) H 08/09/18 20:18 Glucose 187 mg/dl (75-110) H 08/09/18 20:18 Lactate 0.8 mmol/L (0.7-2.1) 08/09/18 20:18 Sodium 134 mmol/L (132-148) 08/16/18 17:09 Potassium 4.8 mmol/L (3.6-5.2) 08/16/18 17:09 Chloride 97 mmol/L (98-107) L 08/16/18 17:09 Carbon Dioxide 29 mmol/L (22-30) 08/16/18 17:09 Anion Gap 12 (10-20) 08/16/18 17:09 BUN 32 mg/dL (9-20) H 08/16/18 17:09 Creatinine 1.4 mg/dL (0.8-1.5) 08/16/18 17:09 Est GFR ( Amer) > 60 08/16/18 17:09 Est GFR (Non-Af Amer) 51 08/16/18 17:09 POC Glucose (mg/dL) 223 mg/dL (65-110) H 08/18/18 11:27 Random Glucose 159 mg/dL (75-110) H 08/16/18 17:09 Calcium 8.8 mg/dl (8.6-10.4) 08/16/18 17:09 Phosphorus 5.4 mg/dL (2.5-4.5) H 08/16/18 17:09 Magnesium 1.9 mg/dL (1.6-2.3) 08/16/18 17:09 Total Bilirubin 0.4 mg/dL (0.2-1.3) 08/16/18 17:09 AST 51 U/L (17-59) 08/16/18 17:09 ALT 78 U/L (21-72) H D 08/16/18 17:09 Alkaline Phosphatase 80 U/L (38-126) 08/16/18 17:09 Total Creatine Kinase 61 U/L (55-170) 08/10/18 11:02 CK-MB (Mass) 1.48 ng/mL (0.0-3.38) 08/10/18 11:02 Troponin I 0.0190 ng/mL (0.00-0.120) 08/10/18 11:02 NT-Pro-B Natriuret Pep 900 pg/mL (0-900) 08/18/18 11:50 Total Protein 6.7 g/dL (6.3-8.3) 08/16/18 17:09 Albumin 3.5 g/dL (3.5-5.0) 08/16/18 17:09 Globulin 3.1 gm/dL (2.2-3.9) 08/16/18 17:09 Albumin/Globulin Ratio 1.1 (1.0-2.1) 08/16/18 17:09 Arterial Blood Potassium 3.9 mmol/L (3.6-5.2) 08/09/18 20:18 Urine Color Yellow (YELLOW) 08/09/18 20:48 Urine Clarity Clear (Clear) 08/09/18 20:48 Urine pH 5.0 (5.0-8.0) 08/09/18 20:48 Ur Specific Aulander 1.023 (1.003-1.030) 08/09/18 20:48 Urine Protein 2+ mg/dL (NEGATIVE) H 08/09/18 20:48 Urine Glucose (UA) Normal mg/dL (Normal) 08/09/18 20:48 Urine Ketones Negative mg/dL (NEGATIVE) 08/09/18 20:48 Urine Blood 2+ (NEGATIVE) H 08/09/18 20:48 Urine Nitrate Negative (NEGATIVE) 08/09/18 20:48 Urine Bilirubin 1+ (NEGATIVE) H 08/09/18 20:48 Urine Urobilinogen 2.0 mg/dL (0.2-1.0) 08/09/18 20:48 Ur Leukocyte Esterase Neg Ruby/uL (Negative) 08/09/18 20:48 Urine WBC (Auto) 5 /hpf (0-5) 08/09/18 20:48 Urine RBC (Auto) 25 /hpf (0-3) H 08/09/18 20:48 Ur Squamous Epith Cells < 1 /hpf (0-5) 08/09/18 20:48 Hyaline Casts 6-10 /lpf (0-2) H 08/09/18 20:48 Influenza Typ A,B (EIA) Negative for flu a/b (NEGATIVE) 08/09/18 20:04 Discharge Exam - Head Exam Head Exam: ATRAUMATIC, NORMOCEPHALIC Discharge Plan - Discharge Medications Prescriptions: Aspirin [Aspirin Chewable] 81 mg PO DAILY #30 chew Losartan [Cozaar] 100 mg PO DAILY #30 tab metFORMIN [glucOPHAGE] 850 mg PO BIDCC #60 tab SITagliptin [Januvia] 100 mg PO DAILY #30 tab Furosemide [Lasix] 40 mg PO DAILY #30 tablet Clopidogrel [Plavix] 75 mg PO DAILY #30 tab Simvastatin 1 tab PO QPM #30 tablet Metoprolol Succinate XL [Toprol XL] 50 mg PO DAILY #30 tab - Follow Up Plan Condition: FAIR Disposition: HOME/ ROUTINE Instructions: Heart Healthy Diet, Diabetes Exchange Diet, Heart Failure, Adult (DC), Cardiac Catheterization (DC), Shortness of Breath (Dyspnea) (DC), Diabetes Diet , Coronary Heart Disease (DC) Additional Instructions: Please follow up with Dr. Gordillo office in 1 week Please follow up with Dr. Lang office in 1 week Please follow up with Orthopedic as soon as possible to remove the left arm cast continue medication as per med. rec Referrals: Trudy Smith MD [Staff Provider] - Arsenio Lang MD [Staff Provider] - Esau Gordillo MD [Staff Provider] -
--- NOTE | 2018-08-19 06:48 | DS ---
DISCHARGE DIAGNOSES: 1. Acute exacerbation of congestive heart failure. 2. Coronary artery disease. 3. Hypertension. 4. Hyperlipidemia. HISTORY OF PRESENT ILLNESS: This is a 63-year-old male with history of hypertension, hyperlipidemia, coronary artery disease, status post angioplasty who came in because of dyspnea. The patient underwent cardiac cath and he was found to have further occlusion and he underwent angioplasty and now the patient is stable and he is for discharge. PHYSICAL EXAMINATION: VITAL SIGNS: Blood pressure 120/79, pulse 86, respiratory rate 20, afebrile. LABORATORY DATA: Glucose 223 to 166. WBC 4.9, hemoglobin 10.4, hematocrit 30.1, platelets 157. PH 7.43, pCO2 of 35, pO2 of 82, bicarb 24.4. Circulation profile is normal. The patient's chemistry; sodium 134, potassium 4.8, chloride 97, bicarb 29, BUN 32, creatinine 1.4. CONDITION UPON DISCHARGE: Stable. Esau Gordillo MD
== END 2018-08-18 14:25 | disposition home or self-care (01) | DRG 544 ==
LOC: C.ER 19:18 → C.9E 21:07 → C.6T 08-10 06:49
PROVIDERS: ADMIT Internal Medicine; ATTEND Internal Medicine
PROC: 4A023N8 Measurement of Cardiac Sampling and Pressure, Bilateral, Percutaneous Approach (ICD-10-PCS; principal; 2018-08-14)
PROC: B2111ZZ Fluoroscopy of Multiple Coronary Arteries using Low Osmolar Contrast (ICD-10-PCS; 2018-08-14)
PROC: B2161ZZ Fluoroscopy of Right and Left Heart using Low Osmolar Contrast (ICD-10-PCS; 2018-08-14)
DX: I11.0 Hypertensive heart disease with heart failure (principal); B20 Human immunodeficiency virus [HIV] disease; B19.20 Unspecified viral hepatitis C without hepatic coma; J44.0 Chronic obstructive pulmonary disease with (acute) lower respiratory infection; I50.33 Acute on chronic diastolic (congestive) heart failure; E78.5 Hyperlipidemia, unspecified; I25.10 Atherosclerotic heart disease of native coronary artery without angina pectoris; Z95.5 Presence of coronary angioplasty implant and graft; E11.9 Type 2 diabetes mellitus without complications; I25.5 Ischemic cardiomyopathy; J20.9 Acute bronchitis, unspecified; S62.615A Displaced fracture of proximal phalanx of left ring finger, initial encounter for closed fracture; X58.XXXA Exposure to other specified factors, initial encounter; Z86.19 Personal history of other infectious and parasitic diseases

== ENCOUNTER 2018-10-02 19:04 | Observation (INO) | payer OTHER ==
[2018-10-02 19:04] VITALS: BMI 25.2
--- NOTE | 2018-10-02 19:25 | C.PDOC ---
History Of Present Illness Patient is a 63 year old male leighton who presents to the ED c/o SOB and chest tightness and that he began experiencing while walking home from his sister's house. He notes associated leg swelling. Patient states that this is the first time he has experienced this type of CP since the last time he was discharged form the hospital and has been compliant with his medications, which include blood thinners. Patient is s/p 324mg Aspirin and one Nitro spray as administered by EMS and states that he felt better after. He does not have any current CP, but still notes some chest tightness. 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 He denies any headache, fever, nausea, vomiting, or diarrhea. DR MARY 08/11/18 1new onset CHF E f30-35% , hx of CAD ( PCI of MLAD in 08/24 ) hx of CAD s/p PCI of mLAD in 08/24, repeat cath in 12/24 admitted with worsening SOB x 3 weeks and diagnosed with new onset CHF ( E F35% ). echocardiogram done today showed ejection fraction of 20% Time Seen by Provider: 10/02/18 19:21 Chief Complaint (Nursing): Chest Pain History Per: Patient History/Exam Limitations: no limitations Onset/Duration Of Symptoms: Hrs Current Symptoms Are (Timing): Still Present Quality: Tightness (chest), "Pain" (chest ) Associated Symptoms: denies: Nausea Nitro Therapy Administered: Per EMS Additional History Per: Patient, EMS Past Medical History Reviewed: Historical Data, Nursing Documentation, Vital Signs Vital Signs: Last Vital Signs Temp 97.2 F L 10/02/18 19:06 Pulse 100 H 10/02/18 19:06 Resp 20 10/02/18 19:06 BP 138/85 10/02/18 19:06 Pulse Ox 97 10/02/18 19:06 - Medical History PMH: Arthritis, Bronchitis, CAD, Diabetes, HIV (undetectable), HTN, Hypercholesterolemia Denies: Chronic Kidney Disease Surgical History: Coronary Stent (cardiac cath with stent placement) Denies: Pacemaker - [facility] Procedures DILATION OF 1 COR ART WITH DRUG-ELUT INTRA, PERC APPROACH (08/16/17) FLUOROSCOPY OF LEFT HEART USING LOW OSMOLAR CONTRAST (12/24/17) FLUOROSCOPY OF MULT COR ART USING L OSM CONTRAST (08/09/18) FLUOROSCOPY OF RIGHT AND LEFT HEART USING L OSM CONTRAST (08/09/18) MEASURE CARDIAC SAMPL & PRESSURE, BILATERAL, PERC (08/09/18) MEASURE OF CARDIAC SAMPL & PRESSURE, L HEART, PERC APPROACH (12/24/17) MEASUREMENT OF ARTERIAL PRESSURE, CORONARY, PERC APPROACH (08/16/17) ULTRASONOGRAPHY OF RIGHT AND LEFT HEART, TRANSESOPHAGEAL (09/10/16) Family History: States: Diabetes, Hypertension - Social History Hx Tobacco Use: Yes (1/2 pack daily) Hx Alcohol Use: No Hx Substance Use: No - Immunization History Hx Tetanus Toxoid Vaccination: No Hx Influenza Vaccination: No Hx Pneumococcal Vaccination: No Review Of Systems Cardiovascular: Positive for: Chest Pain Respiratory: Positive for: Shortness of Breath Gastrointestinal: Negative for: Nausea, Vomiting, Diarrhea Musculoskeletal: Positive for: Leg Pain (pedal edema ) Neurological: Negative for: Headache Physical Exam - Physical Exam Appears: Non-toxic, In Acute Distress (mild ) Head: Atraumatic, Normacephalic Oral Mucosa: Moist Neck: Normal ROM, Supple Chest: Symmetrical, No Deformity Cardiovascular: Rhythm Regular, No Murmur, Other (SOB with minor exertion ) Respiratory: No Rales, No Rhonchi, No Wheezing, Other (grossly tachypneic ) Gastrointestinal/Abdominal: Soft, No Tenderness, No Guarding, No Rebound Extremity: Normal ROM, Pedal Edema (+1 bilaterally. No asymmetry), Swelling (chronic swelling of left arm following injury. appearance unchanged since injury. ) Neurological/Psych: Oriented x3, Normal Speech (speaking full sentences ), Normal Cognition ED Course And Treatment - Laboratory Results Result Diagrams: 10/02/18 20:08 10/02/18 20:08 ECG: Interpreted By Ok ECG Rhythm: Sinus Rhythm Interpretation Of ECG: UNCH FROM 08/09/18 Rate From EC O2 Sat by Pulse Oximetry: 97 (on RA) Pulse Ox Interpretation: Normal - Radiology CXR: Interpreted by Me CXR Interpretation: Yes: Other (CHF) - Other Rad CXR X-Ray: Viewed By Me, Read By Radiologist - CT Scan/US CTA chest Other Rad Studies (CT/US): Read By Radiologist, Radiology Report Reviewed CT/US Interpretation: EXAM: CTA Chest with Intravenous Contrast for Pulmonary Embolism. CLINICAL HISTORY: CHEST PAIN. R/O PE. TECHNIQUE: Axial CTA images of the chest with intravenous contrast using a pulmonary embolism protocol. Rec onstructed images were created and reviewed. CONTRAST: With; 100MLS VISI 320 was administered without incident. COMPARISON: None provided. FINDINGS: PULMONARY ARTERIES: No evidence of central or segmental pulmonary embolism is seen. AORTA: There is no evidence for aneurysm or dissection of the thoracic aorta. LUNGS: Posterior bibasilar pneumonic consolidations are present. PLEURAL SPACES: No evidence of pneumothorax. Moderate sized bibasilar pleural effusions are also present. HEART: There is borderline cardiac enlargement. No pericardial effusion. LYMPH NODES: A solitary enlarged right middle mediastinal lymph node is noted. BONES: No focal osseous abnormality or acute fracture. Old healed fractures are seen in the anterolateral aspect of left ribs 6, 7, and 8. UPPER ABDOMEN: Images of the upper abdomen are unremarkable. IMPRESSION: 1. No identification of PE. 2. Posterior bibasilar pneumonic consolidations. 3. Moderate sized posterior bilateral pleural effusions. 4. Borderline cardiac enlargement. 5. A solitary enlarged right middle mediastinal lymph node is identified. 6. Old healed fractures of left ribs 6, 7 and 8 as described above. . Electronically signed on Oct 02, 2018 10:21:02 PM EST by: Ghulam Skinner M.D., [place] Certified By ABR & CBCCT. Fellowship Trained MRI and CT Specialist Progress Note: EKG, Bloodwork, CXR ordered and reviewed. Nitrostat 0.4mg SL administered. Progress - Re-Evaluation Re-evaluation Note: 10/02/18 20:57 SP NG SL X 1. CP, SOB RESOLVED. VSS. +DIMER. WILL CTA 10/02/18 21:04 D/W DR STODDARD: INVOLVED IN RECENT PATIENT ADMISSION 08/2018. AGREES W ADMISSION. CTA PENDING - Data Reviewed Data Reviewed: Lab, Diagnostic imaging, EKG, Old records Disposition Counseled Patient/Family Regarding: Studies Performed, Diagnosis - Disposition Disposition: HOSPITALIZED Disposition Time: 21:06 Condition: STABLE - POA Present On Arrival: None - Clinical Impression Clinical Impression: CHF exacerbation, Chest pain, Dyspnea - Scribe Statement The provider has reviewed the documentation as recorded by the Helene Card All medical record entries made by the Elysiaibdivya were at my direction and personally dictated by me. I have reviewed the chart and agree that the record accurately reflects my personal performance of the history, physical exam, medical decision making, and the department course for this patient. I have also personally directed, reviewed, and agree with the discharge instructions and disposition.
[2018-10-02 20:17] LABS: BASO % 0.5 % (0.0-2.0); EOS # 0.1 K/uL (0.0-0.7); EOS % 1.2 % (0.0-4.0); LYMPH % 16.2 % (20.0-40.0); MEAN CORPUSCULAR HEMOGLOBIN 26.9 pg (27.0-31.0); MEAN CORPUSCULAR HGB CONC 32.6 g/dL (33.0-37.0); MEAN PLATELET VOLUME 8.5 fL (7.2-11.7); MONO # 0.3 K/uL (0.0-0.8); MONO % 5.3 % (0.0-10.0); NEUT # 4.6 K/uL (1.8-7.0); NEUT % 76.8 % (50.0-75.0); RBC 4.45 Mil/uL (4.40-5.90); RED CELL DISTRIBUTION WIDTH 13.4 % (11.5-14.5); WHITE BLOOD COUNT 5.9 K/uL (4.8-10.8)
[2018-10-02 20:23] LABS: MEAN CELL VOLUME 82.5 fL (80.0-94.0)
[2018-10-02 20:33] LABS: ALB/GLOB RATIO 1.2 (1.0-2.1); ALBUMIN 3.9 g/dL (3.5-5.0); ALT/SGPT 47 U/L (21-72); AST/SGOT 34 U/L (17-59); BLOOD UREA NITROGEN 19 mg/dL (9-20); CALCIUM 8.6 mg/dl (8.6-10.4); GFR NON-AFRICAN AMERICAN > 60
[2018-10-02 20:44] LABS: B-TYPE NATRIURETIC PEPTIDE 4430 pg/mL (0-900)
[2018-10-03 04:34] LABS: CK-MB 0.8 ng/mL (0.0-3.38); TROPONIN I 0.02 ng/mL (0.00-0.120)
--- NOTE | 2018-10-03 07:48 | CT ---
CT chest pulmonary angiogram HISTORY: Chest pain. Shortness of breath. COMPARISON: None available. TECHNIQUE: CT chest pulmonary angiogram was performed utilizing multiple contiguous axial images with the use of intravenous contrast. Subsequently, sagittal and coronal reformatted images were obtained. Sagittal and coronal MIPS reformatted images were obtained. This CT exam was performed using one or more of the following dose reduction techniques: Automated exposure control, adjustment of the mA and/or kV according to patient size, and/or use of iterative reconstruction technique. Findings: Moderate bilateral pleural effusions. No significant axillary adenopathy. Heterogeneity of the thyroid. Shotty pre-vascular lymph nodes for example measuring up to 2.0 centimeters. Right paratracheal lymph node measures up to 1.4 centimeters. No significant hilar adenopathy. Mild cardiomegaly. Nodular thickening of the adrenal glands. Aneurysmal prominence of the ascending aorta measuring up to 4 centimeters. Atherosclerotic calcification and plaque within the aorta. Aortic arch measures 3 centimeters. Descending aorta measures up to 3.1 centimeters. No evidence of acute pulmonary embolism. Questionable filling defect within a subsegmental branch of the left lower lobe pulmonary artery on series 2, image 171 likely represents some streak and motion artifact. Right lung: Emphysematous changes. Prominent focal consolidative changes within the posterior aspect of the right lower lobe. Left lung: Emphysematous changes. Some focal ground-glass opacity seen within the posterior aspect of the left upper lobe on series 4, image 54 which may be the sequelae of acute infectious and or inflammatory changes. Post treatment interval follow-up would be helpful to ensure resolution. Focal consolidation within the lingula. Prominent focal consolidation within the posterior aspect of the left lower lobe. Trachea thru central airways are patent. Degenerative changes in the spine. Probable old healed fractures of the left 6 7th and 8th ribs. Suggestion of chronic deformity of the left transverse process of the L1 and L2 vertebral bodies. Clinical correlation. Impression: No evidence of acute pulmonary embolism. Probable artifact in subsegmental branches of the left lower lobe pulmonary artery. Moderate-sized bilateral pleural effusions with posterior bibasilar pneumonic consolidations. Some focal ground-glass opacity seen within the posterior aspect of the left upper lobe on series 4, image 54 which may be the sequelae of acute infectious and or inflammatory changes. Post treatment interval follow-up would be helpful to ensure resolution. Borderline cardiac enlargement. Prominent mediastinal lymph nodes as described above. Probable old healed fractures of the left 6 7th and 8th ribs as described above. A preliminary report was generated at 10:21 p.m. on 10/02/[address] Ghulam Skinner from [employer].
--- NOTE | 2018-10-03 08:37 | RAD ---
Chest x-ray two views HISTORY: Shortness of breath. COMPARISON: 12/24/2017 Findings: Prominent diffuse increased interstitial lung markings. Mild to moderate venous congestion. Patchy consolidative opacities at the bilateral lung bases with associated small bilateral pleural effusions. Biapical thickening. Tortuous ectatic aorta. Top normal heart size. Bilateral hilar prominence. Degenerative changes in the spine and shoulders. Impression: Prominent diffuse increased interstitial lung markings. Mild to moderate venous congestion. Patchy consolidative opacities at the bilateral lung bases with associated small bilateral pleural effusions. Biapical thickening. Tortuous ectatic aorta. Top normal heart size. Bilateral hilar prominence.
[2018-10-03] MEDS: Enoxaparin 40 mg Syringe SC SCH (10:06)
[2018-10-03] MEDS: Metoprolol Succinate 50 mg XL Tab PO SCH (10:06)
[2018-10-03 11:52] LABS: CK-MB 0.85 ng/mL (0.0-3.38); TROPONIN I 0.017 ng/mL (0.00-0.120)
--- NOTE | 2018-10-03 16:25 | CP.PCM.CON ---
History of Present Illness - History of Present Illness History of Present Illness: Reason for consultation: Shortness of breath 63-year-old male with history of hypertension, diabetes, hyperlipidemia, coronary artery disease status post stent placement, CHF with ejection fraction 20% presented to emergency room with shortness of breath. Patient states shortness of breath started yesterday mostly on exertion, but denies cough, denies fever chills, denies chest pain. PMHx: As noted above PSHx: PCI placement All: NKDA SHx: current tobacco user 40 pack year history, former ETOH abuse, sober past 5 years, denies illicit drug use FHx: mother with heart disease and diabetes Review of Systems - Review of Systems All systems: reviewed and no additional remarkable complaints except (Shortness of breath) Past Patient History - Infectious Disease Hx of Infectious Diseases: None - Past Medical History & Family History Past Medical History?: Yes - Past Social History Smoking Status: Former Smoker - CARDIAC Hx Hypercholesterolemia: Yes Hx Hypertension: Yes Hx Pacemaker: No - PULMONARY Hx Bronchitis: Yes - NEUROLOGICAL Hx Neurological Disorder: No HX Cerebrovascular Accident: No - HEENT Hx HEENT Problems: No - RENAL Hx Chronic Kidney Disease: No - ENDOCRINE/METABOLIC Hx Endocrine Disorders: Yes Hx Diabetes Mellitus Type 2: Yes - HEMATOLOGICAL/ONCOLOGICAL Hx Human Immunodeficiency Virus (HIV): Yes (undetectable) - INTEGUMENTARY Hx Dermatological Problems: No - MUSCULOSKELETAL/RHEUMATOLOGICAL Hx Arthritis: Yes - GASTROINTESTINAL Hx Gastrointestinal Disorders: No - GENITOURINARY/GYNECOLOGICAL Hx Genitourinary Disorders: No - PSYCHIATRIC Hx Substance Use: No - SURGICAL HISTORY Hx Coronary Stent: Yes (cardiac cath with stent placement) - ANESTHESIA Hx Anesthesia: Yes Hx Anesthesia Reactions: No Hx Malignant Hyperthermia: No Meds Allergies/Adverse Reactions: Allergies Allergy/AdvReac Type Severity Reaction Status Date / Time No Known Allergies Allergy Verified 08/09/18 19:39 - Medications Medications: Current Medications Aspirin (Ecotrin) 81 mg PO DAILY [facility] Last Admin: 10/03/18 10:05 Dose: 81 mg Clopidogrel Bisulfate (Plavix) 75 mg PO DAILY [facility] Last Admin: 10/03/18 10:06 Dose: 75 mg Enoxaparin Sodium (Lovenox) 40 mg SC DAILY [facility] Last Admin: 10/03/18 10:06 Dose: 40 mg Furosemide (Lasix) 40 mg IVP DAILY [facility] Last Admin: 10/03/18 10:05 Dose: 40 mg Gabapentin (Neurontin) 400 mg PO [facility] Losartan Potassium (Cozaar) 100 mg PO DAILY [facility] Last Admin: 10/03/18 10:05 Dose: 100 mg Metformin HCl (Glucophage) 850 mg PO BID [facility] Last Admin: 10/03/18 10:05 Dose: 850 mg Metoprolol Succinate (Toprol Xl) 50 mg PO DAILY [facility] Last Admin: 10/03/18 10:06 Dose: 50 mg Sitagliptin Phosphate (Januvia) 100 mg PO DAILY [facility] Last Admin: 10/03/18 10:05 Dose: 100 mg Physical Exam - Head Exam Head Exam: ATRAUMATIC, NORMOCEPHALIC - ENT Exam ENT Exam: Mucous Membranes Moist - Neck Exam Neck exam: Positive for: Normal Inspection - Respiratory Exam Respiratory Exam: Clear to Auscultation Bilateral - Cardiovascular Exam Cardiovascular Exam: REGULAR RHYTHM Results - Vital Signs Recent Vital Signs: Last Vital Signs Temp 97.3 F L 10/03/18 12:22 Pulse 64 10/03/18 12:22 Resp 20 10/03/18 12:22 BP 132/81 10/03/18 12:22 Pulse Ox 100 10/03/18 12:22 - Labs Result Diagrams: 10/02/18 20:08 10/02/18 20:08 Labs: Laboratory Results - last 24 hr 10/02/18 10/02/18 10/02/18 20:08 20:08 20:08 WBC 5.9 RBC 4.45 Hgb 12.0 Hct 36.7 MCV 82.5 D MCH 26.9 L MCHC 32.6 L RDW 13.4 Plt Count 229 MPV 8.5 Neut % (Auto) 76.8 H Lymph % (Auto) 16.2 L Bland % (Auto) 5.3 Eos % (Auto) 1.2 Baso % (Auto) 0.5 Neut # (Auto) 4.6 Lymph # (Auto) 1.0 Bland # (Auto) 0.3 Eos # (Auto) 0.1 Baso # (Auto) 0.0 D-Dimer, Quantitative 750 H Sodium 136 Potassium 3.6 Chloride 103 Carbon Dioxide 27 Anion Gap 10 BUN 19 Creatinine 0.7 L Est GFR ( Amer) > 60 Est GFR (Non-Af Amer) > 60 POC Glucose (mg/dL) Random Glucose 165 H Calcium 8.6 Total Bilirubin 0.5 AST 34 ALT 47 Alkaline Phosphatase 126 D Total Creatine Kinase CK-MB (Mass) Troponin I 0.0140 NT-Pro-B Natriuret Pep 4430 H Total Protein 7.3 Albumin 3.9 Globulin 3.4 Albumin/Globulin Ratio 1.2 10/03/18 10/03/18 10/03/18 00:06 04:03 11:15 WBC RBC Hgb Hct MCV MCH MCHC RDW Plt Count MPV Neut % (Auto) Lymph % (Auto) Bland % (Auto) Eos % (Auto) Baso % (Auto) Neut # (Auto) Lymph # (Auto) Bland # (Auto) Eos # (Auto) Baso # (Auto) D-Dimer, Quantitative Sodium Potassium Chloride Carbon Dioxide Anion Gap BUN Creatinine Est GFR ( Amer) Est GFR (Non-Af Amer) POC Glucose (mg/dL) 140 H Random Glucose Calcium Total Bilirubin AST ALT Alkaline Phosphatase Total Creatine Kinase 41 L 38 L CK-MB (Mass) 0.80 0.85 Troponin I 0.0200 0.0170 NT-Pro-B Natriuret Pep Total Protein Albumin Globulin Albumin/Globulin Ratio Assessment & Plan (1) CHF exacerbation Status: Acute Comment: Continue diuretics and present medication (2) Pneumonia Assessment and Plan: CAT scan of the chest consistent with basilar infiltrate Empiric antibiotic coverage Pro-calcitonin level Follow-up culture and sensitivity Status: Acute
[2018-10-03] MEDS: Piperacillin/Tazobact 3.375 GM in Sodium Chloride 100 ML IVPB SCH (16:49)
--- NOTE | 2018-10-03 19:11 | CP.PCM.HP ---
Present on Admission - Present on Admission Any Indicators Present on Admission: No Past Patient History - Infectious Disease Hx of Infectious Diseases: None - Past Medical History & Family History Past Medical History?: Yes - Past Social History Smoking Status: Former Smoker - CARDIAC Hx Hypercholesterolemia: Yes Hx Hypertension: Yes Hx Pacemaker: No - PULMONARY Hx Bronchitis: Yes - NEUROLOGICAL Hx Neurological Disorder: No HX Cerebrovascular Accident: No - HEENT Hx HEENT Problems: No - RENAL Hx Chronic Kidney Disease: No - ENDOCRINE/METABOLIC Hx Endocrine Disorders: Yes Hx Diabetes Mellitus Type 2: Yes - HEMATOLOGICAL/ONCOLOGICAL Hx Human Immunodeficiency Virus (HIV): Yes (undetectable) - INTEGUMENTARY Hx Dermatological Problems: No - MUSCULOSKELETAL/RHEUMATOLOGICAL Hx Arthritis: Yes - GASTROINTESTINAL Hx Gastrointestinal Disorders: No - GENITOURINARY/GYNECOLOGICAL Hx Genitourinary Disorders: No - PSYCHIATRIC Hx Substance Use: No - SURGICAL HISTORY Hx Coronary Stent: Yes (cardiac cath with stent placement) - ANESTHESIA Hx Anesthesia: Yes Hx Anesthesia Reactions: No Hx Malignant Hyperthermia: No Meds Allergies/Adverse Reactions: Allergies Allergy/AdvReac Type Severity Reaction Status Date / Time No Known Allergies Allergy Verified 08/09/18 19:39 Results - Vital Signs Recent Vital Signs: Last Vital Signs Temp 98.0 F 10/03/18 16:59 Pulse 82 10/03/18 16:59 Resp 18 10/03/18 16:59 BP 134/76 10/03/18 16:59 Pulse Ox 99 10/03/18 16:59 - Labs Result Diagrams: 10/02/18 20:08 10/02/18 20:08 Labs: Laboratory Results - last 24 hr 10/02/18 10/02/18 10/02/18 20:08 20:08 20:08 WBC 5.9 RBC 4.45 Hgb 12.0 Hct 36.7 MCV 82.5 D MCH 26.9 L MCHC 32.6 L RDW 13.4 Plt Count 229 MPV 8.5 Neut % (Auto) 76.8 H Lymph % (Auto) 16.2 L [place] % (Auto) 5.3 Eos % (Auto) 1.2 Baso % (Auto) 0.5 Neut # (Auto) 4.6 Lymph # (Auto) 1.0 [place] # (Auto) 0.3 Eos # (Auto) 0.1 Baso # (Auto) 0.0 D-Dimer, Quantitative 750 H Sodium 136 Potassium 3.6 Chloride 103 Carbon Dioxide 27 Anion Gap 10 BUN 19 Creatinine 0.7 L Est GFR ( Amer) > 60 Est GFR (Non-Af Amer) > 60 POC Glucose (mg/dL) Random Glucose 165 H Calcium 8.6 Total Bilirubin 0.5 AST 34 ALT 47 Alkaline Phosphatase 126 D Total Creatine Kinase CK-MB (Mass) Troponin I 0.0140 NT-Pro-B Natriuret Pep 4430 H Total Protein 7.3 Albumin 3.9 Globulin 3.4 Albumin/Globulin Ratio 1.2 10/03/18 10/03/18 10/03/18 00:06 04:03 11:15 WBC RBC Hgb Hct MCV MCH MCHC RDW Plt Count MPV Neut % (Auto) Lymph % (Auto) [place] % (Auto) Eos % (Auto) Baso % (Auto) Neut # (Auto) Lymph # (Auto) [place] # (Auto) Eos # (Auto) Baso # (Auto) D-Dimer, Quantitative Sodium Potassium Chloride Carbon Dioxide Anion Gap BUN Creatinine Est GFR ( Amer) Est GFR (Non-Af Amer) POC Glucose (mg/dL) 140 H Random Glucose Calcium Total Bilirubin AST ALT Alkaline Phosphatase Total Creatine Kinase 41 L 38 L CK-MB (Mass) 0.80 0.85 Troponin I 0.0200 0.0170 NT-Pro-B Natriuret Pep Total Protein Albumin Globulin Albumin/Globulin Ratio
[2018-10-04] MEDS: Piperacillin/Tazobact 3.375 GM in Sodium Chloride 100 ML IVPB SCH ×3 (01:08→18:11)
[2018-10-04 01:23] VITALS: RESP 20
--- NOTE | 2018-10-04 04:30 | HP ---
CHIEF COMPLAINT: Chest pain and shortness of breath x1 hour. HISTORY OF PRESENT ILLNESS: This is a 63-year-old male, well known to me with history of diabetes, hypertension, hyperlipidemia, coronary artery disease, status post angioplasty, and the patient has congestive heart failure with ejection fraction of 20%. Yesterday, he was walking to his sister's home. On his way to her house, he developed substernal pressure like chest pain, nonradiating, associated with diaphoresis, dizziness. He sat down and he called 911. The patient since his prior discharge has been doing well. He has been compliant with his medication and followup. He denies any cough, sore throat, runny nose. He denies any positional component. He denies any relation with food. He denies any history of paroxysmal nocturnal dyspnea. He has nocturia. He denies any polyuria, polydipsia, polyphagia. He denies any history of hematuria, pyuria. He denies any sneezing, itchy eyes, itchy nose. There is no history of trauma, fall, loss of consciousness. No history of syncope. There is no joint pain, hip pain. No rash. ALLERGIES: NO KNOWN ALLERGIES. CURRENT MEDICATIONS: The patient is on metformin, Januvia, Toprol XL, Cozaar, Neurontin, Lasix, Combivent, Plavix, aspirin. SOCIAL HISTORY: Ex-smoker. Ex-ETOH user. PAST MEDICAL HISTORY: CAD, diabetes, hypertension, hyperlipidemia, congestive heart failure. PHYSICAL EXAMINATION: GENERAL: An elderly male. Right now, he is comfortable. VITAL SIGNS: Blood pressure 134/76, pulse 82, respiratory rate 18, temperature 98. SKIN: Senile turgor. No bruises. No purpura. No petechiae. No ecchymosis. HEENT: Atraumatic, normocephalic. Negative pallor. Negative jaundice. Extraocular movements are intact. NECK: Supple. No JVD. No lymph node. No thyromegaly. CHEST WALL: Bilateral symmetrical expansion. LUNGS: Clear. No rales. No rhonchi. CENTRAL NERVOUS SYSTEM: S1, S2 regular. ABDOMEN: Soft, nontender. Bowel sounds are positive. RECTAL: Enlarged prostate. EXTREMITIES: No clubbing, cyanosis, or edema. CENTRAL NERVOUS SYSTEM: Awake, alert, and oriented x3. ASSESSMENT: 1. Chest pain, rule out myocardial infarction. The patient has underlying coronary artery disease. 2. Diabetes. 3. Hypertension. 4. Congestive heart failure. PLAN: Admit. Detailed orders are written. Seen and examined. Esau Gordillo MD
[2018-10-04] MEDS: Enoxaparin 40 mg Syringe SC SCH (09:15)
[2018-10-04] MEDS: Metoprolol Succinate 50 mg XL Tab PO SCH (09:19)
--- NOTE | 2018-10-04 11:40 | CP.PCM.PN ---
Subjective - Date & Time of Evaluation Date of Evaluation: 10/04/18 Time of Evaluation: 11:39 - Subjective Subjective: Pulmonary Follow up, Covering Dr Andersen The Patient was seen and examined at the bedside, Medical records reviewed, and management issues were discussed and formulated with the house staff. Events reviewed 63-year-old male with history of hypertension, diabetes, hyperlipidemia, coronary artery disease status post stent placement, CHF with ejection fraction 20% Who presented to emergency room with shortness of breath. Patient states shortness of breath started yesterday mostly on exertion. Admitted with pneumonia, CHF Patient seen comfortable and in no apparent distress Awake and oriented Denies chest pain fever chills nausea vomiting and less shortness of breath since admission Saturation 95-96% on nasal cannula Objective - Vital Signs/Intake and Output Vital Signs (last 24 hours): Temp Pulse Resp BP Pulse Ox 97.9 F 67 20 129/85 96 10/04/18 09:10 10/04/18 09:10 10/04/18 09:10 10/04/18 09:14 10/04/18 09:10 - Medications Medications: Current Medications Aspirin (Ecotrin) 81 mg PO DAILY [facility] Last Admin: 10/04/18 09:13 Dose: 81 mg Clopidogrel Bisulfate (Plavix) 75 mg PO DAILY [facility] Last Admin: 10/04/18 09:13 Dose: 75 mg Enoxaparin Sodium (Lovenox) 40 mg SC DAILY [facility] Last Admin: 10/04/18 09:15 Dose: 40 mg Furosemide (Lasix) 40 mg IVP DAILY [facility] Last Admin: 10/04/18 09:14 Dose: 40 mg Gabapentin (Neurontin) 400 mg PO HS [facility] Last Admin: 10/03/18 22:31 Dose: 400 mg Piperacillin Sod/Tazobactam (Sod 3.375 gm/ Sodium Chloride) 100 mls @ 200 mls/hr IVPB Q8H [facility]; Protocol Last Admin: 10/04/18 08:14 Dose: 200 mls/hr Losartan Potassium (Cozaar) 100 mg PO DAILY [facility] Last Admin: 10/04/18 09:14 Dose: 100 mg Metformin HCl (Glucophage) 850 mg PO BID [facility] Last Admin: 10/04/18 09:14 Dose: 850 mg Metoprolol Succinate (Toprol Xl) 50 mg PO DAILY [facility] Last Admin: 10/04/18 09:19 Dose: 50 mg Sitagliptin Phosphate (Januvia) 100 mg PO DAILY [facility] Last Admin: 10/04/18 09:13 Dose: 100 mg - Labs Labs: 10/02/18 20:08 10/02/18 20:08 - Constitutional Appears: Well, Non-toxic - Eye Exam Eye Exam: EOMI, Normal appearance, PERRL - ENT Exam ENT Exam: Mucous Membranes Moist, Normal Exam - Respiratory Exam Respiratory Exam: Rales, Rhonchi, NORMAL BREATHING PATTERN. absent: Clear to Ausculation Bilateral, Wheezes - Cardiovascular Exam Cardiovascular Exam: REGULAR RHYTHM, +S1, +S2. absent: Murmur - GI/Abdominal Exam GI & Abdominal Exam: Soft, Normal Bowel Sounds. absent: Tenderness Assessment and Plan (1) Pneumonia Assessment & Plan: CAT scan of the chest consistent with basilar infiltrate Empiric antibiotic coverage Pro-calcitonin level Follow-up culture and sensitivity Status: Acute (2) CHF exacerbation Assessment & Plan: Continue diuretics and present cardiac medication Status: Acute (3) Chest pain Status: Acute (4) Dyspnea Status: Acute
[2018-10-04 11:47] LABS: BLOOD UREA NITROGEN 22 mg/dL (9-20); CALCIUM 8.2 mg/dl (8.6-10.4); GFR NON-AFRICAN AMERICAN > 60
[2018-10-04] MEDS: guaiFENesin 600 mg ER Tab PO SCH ×2 (12:30→18:11)
[2018-10-04] MEDS: Albuterol-Ipratrop 3 mg / 0.5 (3 ml) UD INH SCH ×2 (16:34→19:47)
--- NOTE | 2018-10-04 20:59 | CP.PCM.PN ---
Subjective - Date & Time of Evaluation Date of Evaluation: 10/04/18 Time of Evaluation: 07:20 - Subjective Subjective: dicted Objective - Vital Signs/Intake and Output Vital Signs (last 24 hours): Temp Pulse Resp BP Pulse Ox 97.8 F 64 20 110/67 97 10/04/18 15:21 10/04/18 15:21 10/04/18 15:21 10/04/18 15:21 10/04/18 15:21 - Medications Medications: Current Medications Albuterol/Ipratropium (Duoneb 3 Mg/0.5 Mg (3 Ml) Ud) 3 ml INH RQ6 [facility] Last Admin: 10/04/18 19:47 Dose: 3 ml Aspirin (Ecotrin) 81 mg PO DAILY [facility] Last Admin: 10/04/18 09:13 Dose: 81 mg Clopidogrel Bisulfate (Plavix) 75 mg PO DAILY [facility] Last Admin: 10/04/18 09:13 Dose: 75 mg Enoxaparin Sodium (Lovenox) 40 mg SC DAILY [facility] Last Admin: 10/04/18 09:15 Dose: 40 mg Furosemide (Lasix) 40 mg IVP DAILY [facility] Last Admin: 10/04/18 09:14 Dose: 40 mg Gabapentin (Neurontin) 400 mg PO HS [facility] Last Admin: 10/03/18 22:31 Dose: 400 mg Guaifenesin (Mucinex La) 600 mg PO BID [facility] Last Admin: 10/04/18 18:11 Dose: 600 mg Piperacillin Sod/Tazobactam (Sod 3.375 gm/ Sodium Chloride) 100 mls @ 200 mls/hr IVPB Q8H [facility]; Protocol Last Admin: 10/04/18 18:11 Dose: 200 mls/hr Losartan Potassium (Cozaar) 100 mg PO DAILY [facility] Last Admin: 10/04/18 09:14 Dose: 100 mg Metformin HCl (Glucophage) 850 mg PO BID [facility] Last Admin: 10/04/18 18:11 Dose: 850 mg Metoprolol Succinate (Toprol Xl) 50 mg PO DAILY [facility] Last Admin: 10/04/18 09:19 Dose: 50 mg Sitagliptin Phosphate (Januvia) 100 mg PO DAILY [facility] Last Admin: 10/04/18 09:13 Dose: 100 mg - Labs Labs: 10/02/18 20:08 10/04/18 11:10
[2018-10-05] MEDS: Piperacillin/Tazobact 3.375 GM in Sodium Chloride 100 ML IVPB SCH ×3 (01:02→17:30)
[2018-10-05] MEDS: Albuterol-Ipratrop 3 mg / 0.5 (3 ml) UD INH SCH ×4 (02:05→19:40)
--- NOTE | 2018-10-05 02:32 | PN ---
DATE: 10/04/2018 SUBJECTIVE: The patient is complaining of cough and he feels congested. The patient is less short of breath. He is diuresing. His troponins x3 are negative. Occasional chest pain. No nausea or vomiting. PHYSICAL EXAMINATION: VITAL SIGNS: Blood pressure 110/67, pulse 64, respiratory rate 20, and temperature 97.8. LUNGS: Positive scattered rales and rhonchi bilaterally. CARDIOVASCULAR SYSTEM: S1, S2, regular. ABDOMEN: Soft, nontender. Bowel sounds are positive. ASSESSMENT: 1. Tracheobronchitis less likely to be pneumonia. 2. Congestive heart failure,acute on chronic. 3. Coronary chest pain, rule out acute myocardial infarction, stable angina. 4. Hypertension. PLAN: Add expectorant, add nebulizer. Monitor the patient. Esau Gordillo MD
[2018-10-05] MEDS: guaiFENesin 600 mg ER Tab PO SCH ×2 (09:09→18:18)
[2018-10-05] MEDS: Enoxaparin 40 mg Syringe SC SCH (09:10)
[2018-10-05] MEDS: Metoprolol Succinate 50 mg XL Tab PO SCH (09:13)
--- NOTE | 2018-10-05 12:08 | CARD ---
APPROVED REPORT Date of service: 10/02/2018 EKG Measurement Heart [id number] <Conclusion> Normal sinus rhythm Possible Left atrial enlargement Septal infarct, age undetermined T wave abnormality, consider lateral ischemia Abnormal ECG
--- NOTE | 2018-10-05 17:15 | CP.PCM.PN ---
Subjective - Date & Time of Evaluation Date of Evaluation: 10/05/18 Time of Evaluation: 10:00 - Subjective Subjective: Patient was seen and examined at bedside this morning. Patient was sitting comfortably in chair, afebrile and saturation 97 on nasal canula. Patient complained of continued cough with resolving shortness of breath. Patient denied chest pain, palpitations, fever, chills, nausea, vomiting. Exam Gen: no acute distress, AAOx3 Card: RRR, no murmur Pulm: rales, rhonchi b/l; normal breathing pattern GI: soft, nontender, nondistended, normal BSx4 A and P 1. Pneumonia - Chest CT 10/02/18: ZOFIA ground glass opacity may be sequelae of acute infectious or inflammatory changes; moderate-sized b/l pleural effusions with posterior bibasilar pneumonic consolidations; no acute PE - Recommend Pro-calcitonin - Recommend blood and sputum culture and sensitivity - Continue empiric antibiotic Zosyn - Continue Duoneb 3 ml RQ6 - Continue Mucinex 2. CHF exacerbation - Pro BNP 10/02/18: elevated at 4430; monitor potassium (10/02/18 at 3.6) - Recommend Pro-Calc - Echo 08/10/18: ejection fraction 25-30% - Continue Lasix 40 daily, Cozaar 100 mg daily Objective - Vital Signs/Intake and Output Vital Signs (last 24 hours): Temp Pulse Resp BP Pulse Ox 97.5 F L 69 20 105/70 95 10/05/18 15:43 10/05/18 15:43 10/05/18 15:43 10/05/18 15:43 10/05/18 15:43 - Medications Medications: Current Medications Albuterol/Ipratropium (Duoneb 3 Mg/0.5 Mg (3 Ml) Ud) 3 ml INH RQ6 [facility] Last Admin: 10/05/18 13:22 Dose: 3 ml Aspirin (Ecotrin) 81 mg PO DAILY [facility] Last Admin: 10/05/18 09:09 Dose: 81 mg Clopidogrel Bisulfate (Plavix) 75 mg PO DAILY [facility] Last Admin: 10/05/18 09:09 Dose: 75 mg Enoxaparin Sodium (Lovenox) 40 mg SC DAILY [facility] Last Admin: 10/05/18 09:10 Dose: 40 mg Furosemide (Lasix) 40 mg IVP DAILY [facility] Last Admin: 10/05/18 09:09 Dose: 40 mg Gabapentin (Neurontin) 400 mg PO HS [facility] Last Admin: 10/04/18 21:21 Dose: 400 mg Guaifenesin (Mucinex La) 600 mg PO BID [facility] Last Admin: 10/05/18 09:09 Dose: 600 mg Piperacillin Sod/Tazobactam (Sod 3.375 gm/ Sodium Chloride) 100 mls @ 200 mls/hr IVPB Q8H [facility]; Protocol Last Admin: 10/05/18 09:00 Dose: 200 mls/hr Losartan Potassium (Cozaar) 100 mg PO DAILY [facility] Last Admin: 10/05/18 09:09 Dose: 100 mg Metformin HCl (Glucophage) 850 mg PO BID [facility] Last Admin: 10/05/18 09:09 Dose: 850 mg Metoprolol Succinate (Toprol Xl) 50 mg PO DAILY [facility] Last Admin: 10/05/18 09:13 Dose: 50 mg Sitagliptin Phosphate (Januvia) 100 mg PO DAILY [facility] Last Admin: 10/05/18 09:09 Dose: 100 mg - Labs Labs: 10/02/18 20:08 10/04/18 11:10 Assessment and Plan (1) CHF exacerbation Status: Acute (2) Pneumonia Status: Acute
--- NOTE | 2018-10-05 20:36 | CP.PCM.PN ---
Subjective - Date & Time of Evaluation Date of Evaluation: 10/05/18 Time of Evaluation: 08:00 - Subjective Subjective: dictated Objective - Vital Signs/Intake and Output Vital Signs (last 24 hours): Temp Pulse Resp BP Pulse Ox 97.5 F L 69 20 105/70 95 10/05/18 15:43 10/05/18 15:43 10/05/18 15:43 10/05/18 15:43 10/05/18 15:43 - Medications Medications: Current Medications Albuterol/Ipratropium (Duoneb 3 Mg/0.5 Mg (3 Ml) Ud) 3 ml INH RQ6 [facility] Last Admin: 10/05/18 19:40 Dose: 3 ml Aspirin (Ecotrin) 81 mg PO DAILY [facility] Last Admin: 10/05/18 09:09 Dose: 81 mg Clopidogrel Bisulfate (Plavix) 75 mg PO DAILY [facility] Last Admin: 10/05/18 09:09 Dose: 75 mg Enoxaparin Sodium (Lovenox) 40 mg SC DAILY [facility] Last Admin: 10/05/18 09:10 Dose: 40 mg Furosemide (Lasix) 40 mg IVP DAILY [facility] Last Admin: 10/05/18 09:09 Dose: 40 mg Gabapentin (Neurontin) 400 mg PO HS [facility] Last Admin: 10/04/18 21:21 Dose: 400 mg Guaifenesin (Mucinex La) 600 mg PO BID [facility] Last Admin: 10/05/18 18:18 Dose: 600 mg Piperacillin Sod/Tazobactam (Sod 3.375 gm/ Sodium Chloride) 100 mls @ 200 mls/hr IVPB Q8H [facility]; Protocol Last Admin: 10/05/18 17:30 Dose: 200 mls/hr Losartan Potassium (Cozaar) 100 mg PO DAILY [facility] Last Admin: 10/05/18 09:09 Dose: 100 mg Metformin HCl (Glucophage) 850 mg PO BID [facility] Last Admin: 10/05/18 18:18 Dose: 850 mg Metoprolol Succinate (Toprol Xl) 50 mg PO DAILY [facility] Last Admin: 10/05/18 09:13 Dose: 50 mg Ranolazine (Ranexa) 500 mg PO BID [facility] Sitagliptin Phosphate (Januvia) 100 mg PO DAILY [facility] Last Admin: 10/05/18 09:09 Dose: 100 mg - Labs Labs: 10/02/18 20:08 10/04/18 11:10
--- NOTE | 2018-10-06 00:15 | CP.PCM.CON ---
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 Lang 63M w/ a PMH of DM, HTN, HLD, TIA, CAD s/p stent, CHF (most recent Echo 08/25 w/ EF 25-30%) presented to [facility] ED on 10/02 w/ complaints of SOB, Chest t ightness, Leg swelling. Patient reported that prior to admission on 10/02 patient had significant chest pressure, BLUE, and SOB upon ambulation. He reports symptoms of BLUE/SOB have been worsening over the past two weeks. Patient also reports associated orthopnea requiring to sleep on his side. Patient reports episodes of chest pressure occur intermittently, and with less frequency than his complaints of SOB/Orthopnea. Patient reported that chest pain does not occur w/ exertion and is non radiat ing. Patient does report a dry cough w/ ankle swelling. No further complaints voiced on 12 system ROS. Brief Cardiac Hx: 06/24 Cardiac Cath = moderate diffuse disease of LAD - manage medically 08/24 Stress test = Minor area of ischemia in LAD territory 08/24 Cardiac Cath = LAD w/ 70% stenosis - ROLAND deployed to mid LAD ; RCA w/ proximal 40% stenosis 12/24 Cardiac Cath = LAD w/ 55-60% stenosis proximal to ROLAND in mid LAD; RCA w/ 40% stenosis 08/25 Cardiac Cath = LAD w/ patent stent; diffuse disease in distal LAD; RCA w/ proximal 40% stenosis Social: 10cigarretes / day + Active smoker, Social EtOH, Denies illicit drugs PMH: As above + Questionable: HepC (no documented treatment), HIV (no documented HAART; No recent viral load ) PSH:Stent Fam Hx: Mother - stroke, Brother/sister - DM Allergies: NKDA Review of Systems - Review of Systems All systems: reviewed and no additional remarkable complaints except Review of Systems: as per HPI Past Patient History - Infectious Disease Hx of Infectious Diseases: None - Past Medical History & Family History Past Medical History?: Yes - Past Social History Smoking Status: Former Smoker - CARDIAC Hx Hypercholesterolemia: Yes Hx Hypertension: Yes Hx Pacemaker: No - PULMONARY Hx Bronchitis: Yes - NEUROLOGICAL Hx Neurological Disorder: No HX Cerebrovascular Accident: No - HEENT Hx HEENT Problems: No - RENAL Hx Chronic Kidney Disease: No - ENDOCRINE/METABOLIC Hx Endocrine Disorders: Yes Hx Diabetes Mellitus Type 2: Yes - HEMATOLOGICAL/ONCOLOGICAL Hx Human Immunodeficiency Virus (HIV): Yes (undetectable) - INTEGUMENTARY Hx Dermatological Problems: No - MUSCULOSKELETAL/RHEUMATOLOGICAL Hx Arthritis: Yes - GASTROINTESTINAL Hx Gastrointestinal Disorders: No - GENITOURINARY/GYNECOLOGICAL Hx Genitourinary Disorders: No - PSYCHIATRIC Hx Substance Use: No - SURGICAL HISTORY Hx Coronary Stent: Yes (cardiac cath with stent placement) - ANESTHESIA Hx Anesthesia: Yes Hx Anesthesia Reactions: No Hx Malignant Hyperthermia: No Meds Allergies/Adverse Reactions: Allergies Allergy/AdvReac Type Severity Reaction Status Date / Time No Known Allergies Allergy Verified 08/09/18 19:39 - Medications Medications: Current Medications Albuterol/Ipratropium (Duoneb 3 Mg/0.5 Mg (3 Ml) Ud) 3 ml INH RQ6 [facility] Last Admin: 10/05/18 19:40 Dose: 3 ml Aspirin (Ecotrin) 81 mg PO DAILY [facility] Last Admin: 10/05/18 09:09 Dose: 81 mg Clopidogrel Bisulfate (Plavix) 75 mg PO DAILY [facility] Last Admin: 10/05/18 09:09 Dose: 75 mg Enoxaparin Sodium (Lovenox) 40 mg SC DAILY [facility] Last Admin: 10/05/18 09:10 Dose: 40 mg Furosemide (Lasix) 40 mg IVP DAILY [facility] Last Admin: 10/05/18 09:09 Dose: 40 mg Gabapentin (Neurontin) 400 mg PO HS [facility] Last Admin: 10/05/18 22:25 Dose: 400 mg Guaifenesin (Mucinex La) 600 mg PO BID [facility] Last Admin: 10/05/18 18:18 Dose: 600 mg Piperacillin Sod/Tazobactam (Sod 3.375 gm/ Sodium Chloride) 100 mls @ 200 mls/hr IVPB Q8H [facility]; Protocol Last Admin: 10/05/18 17:30 Dose: 200 mls/hr Losartan Potassium (Cozaar) 100 mg PO DAILY [facility] Last Admin: 10/05/18 09:09 Dose: 100 mg Metformin HCl (Glucophage) 850 mg PO BID [facility] Last Admin: 10/05/18 18:18 Dose: 850 mg Metoprolol Succinate (Toprol Xl) 50 mg PO DAILY [facility] Last Admin: 10/05/18 09:13 Dose: 50 mg Ranolazine (Ranexa) 500 mg PO BID [facility] Sitagliptin Phosphate (Januvia) 100 mg PO DAILY [facility] Last Admin: 10/05/18 09:09 Dose: 100 mg Physical Exam - Constitutional Appears: Well, No Acute Distress - Head Exam Head Exam: ATRAUMATIC, NORMOCEPHALIC Additional comments: Mild R sided facial droop - Eye Exam Eye Exam: EOMI, Normal appearance - Respiratory Exam Additional comments: Diminished breath sounds in lower lung wiley bilaterally - Cardiovascular Exam Cardiovascular Exam: +S1, +S2 - GI/Abdominal Exam GI & Abdominal Exam: Normal Bowel Sounds, Soft. absent: Tenderness - Extremities Exam Extremities exam: Positive for: pedal pulses present (2+ DP BL ) Additional comments: No significant edema appreciated - Neurological Exam Neurological exam: Alert, Oriented x3 - Psychiatric Exam Psychiatric exam: Normal Affect, Normal Mood - Skin Skin Exam: Dry, Intact, Normal Color, Warm Results - Vital Signs Recent Vital Signs: Last Vital Signs Temp 97.5 F L 10/05/18 15:43 Pulse 69 10/05/18 15:43 Resp 20 10/05/18 15:43 BP 105/70 10/05/18 15:43 Pulse Ox 95 10/05/18 15:43 - Labs Result Diagrams: 10/02/18 20:08 10/04/18 11:10 Labs: Laboratory Results - last 24 hr 10/05/18 10/05/18 10/05/18 06:48 11:14 17:04 POC Glucose (mg/dL) 136 H 276 H 157 H Procalcitonin 10/05/18 10/05/18 19:50 21:09 POC Glucose (mg/dL) 170 H Procalcitonin < 0.05 L Assessment & Plan (1) CHF exacerbation Status: Acute (2) Diabetes Status: Chronic (3) CAD (coronary artery disease), [place] coronary artery Status: Acute (4) Hyperlipidemia Status: Chronic (5) Hypertension Status: Chronic - Assessment and Plan (Free Text) Plan: EKG on admission shows no overt signs of ischemia Troponin 0.014, 0.020, 0.017 Echo 08/25 - LV dilated, EF 25-30%, Global hypokinesis of Left ventricle, Moderate TR, mild MR, Start Ranexa 500 BID Continue: ASA 81 QD Plavix 75QD Toprol XL 50 QD Cozaar 100 QD Further reccs per Dr. Lang pending
[2018-10-06 01:05] VITALS: TEMP 97.7
[2018-10-06] MEDS: Piperacillin/Tazobact 3.375 GM in Sodium Chloride 100 ML IVPB SCH ×2 (01:30→08:18)
[2018-10-06] MEDS: Albuterol-Ipratrop 3 mg / 0.5 (3 ml) UD INH SCH ×2 (01:35→07:53)
--- NOTE | 2018-10-06 01:49 | PN ---
DATE: 10/05/2018 SUBJECTIVE: The patient is feeling better, less cough, less shortness of breath, less wheezing. No nausea or vomiting. PHYSICAL EXAMINATION: VITAL SIGNS: Blood pressure 105/70, pulse , respiratory rate 20, and temperature 97.5. LUNGS: Decreased air entry. Positive rales and rhonchi. CARDIOVASCULAR SYSTEM: S1, S2, regular. S3 positive. ABDOMEN: Soft. ASSESSMENT: 1. Tracheobronchitis. 2. Exacerbation of congestive heart failure. 3. Diabetes. 4. Hypertension. 5. Hyperlipidemia. PLAN: Continue current medication. Monitor the patient. Esau Gordillo MD
[2018-10-06 08:26] VITALS: O2SAT 96
[2018-10-06] MEDS ORDERED: Ranolazine 500 mg Extended Release Tablets PO SCH (10:00)
[2018-10-06] MEDS: Enoxaparin 40 mg Syringe SC SCH (10:35)
[2018-10-06] MEDS: guaiFENesin 600 mg ER Tab PO SCH (10:35)
[2018-10-06] MEDS: Metoprolol Succinate 50 mg XL Tab PO SCH (10:36)
[2018-10-06 10:37] VITALS: BP 126/76
--- NOTE | 2018-10-06 11:49 | CP.PCM.PN ---
Subjective - Date & Time of Evaluation Date of Evaluation: 10/06/18 Time of Evaluation: 11:49 Objective - Vital Signs/Intake and Output Vital Signs (last 24 hours): Temp Pulse Resp BP Pulse Ox 97.7 F 82 20 126/76 96 10/06/18 08:25 10/06/18 08:25 10/06/18 08:25 10/06/18 10:33 10/06/18 08:25 - Medications Medications: Current Medications Albuterol/Ipratropium (Duoneb 3 Mg/0.5 Mg (3 Ml) Ud) 3 ml INH RQ6 [facility] Last Admin: 10/06/18 07:53 Dose: 3 ml Aspirin (Ecotrin) 81 mg PO DAILY [facility] Last Admin: 10/06/18 10:36 Dose: 81 mg Clopidogrel Bisulfate (Plavix) 75 mg PO DAILY [facility] Last Admin: 10/06/18 10:37 Dose: 75 mg Enoxaparin Sodium (Lovenox) 40 mg SC DAILY [facility] Last Admin: 10/06/18 10:35 Dose: 40 mg Furosemide (Lasix) 40 mg IVP DAILY [facility] Last Admin: 10/06/18 10:33 Dose: 40 mg Gabapentin (Neurontin) 400 mg PO HS [facility] Last Admin: 10/05/18 22:25 Dose: 400 mg Guaifenesin (Mucinex La) 600 mg PO BID [facility] Last Admin: 10/06/18 10:35 Dose: 600 mg Piperacillin Sod/Tazobactam (Sod 3.375 gm/ Sodium Chloride) 100 mls @ 200 mls/hr IVPB Q8H [facility]; Protocol Last Admin: 10/06/18 08:18 Dose: 200 mls/hr Losartan Potassium (Cozaar) 100 mg PO DAILY [facility] Last Admin: 10/06/18 10:35 Dose: 100 mg Metformin HCl (Glucophage) 850 mg PO BID [facility] Last Admin: 10/06/18 10:36 Dose: 850 mg Metoprolol Succinate (Toprol Xl) 50 mg PO DAILY [facility] Last Admin: 10/06/18 10:36 Dose: 50 mg Ranolazine (Ranexa) 500 mg PO BID [facility] Last Admin: 10/06/18 10:36 Dose: 500 mg Sitagliptin Phosphate (Januvia) 100 mg PO DAILY [facility] Last Admin: 10/06/18 10:35 Dose: 100 mg - Labs Labs: 10/02/18 20:08 10/04/18 11:10 Assessment and Plan - Assessment and Plan (Free Text) Assessment: FOLLOW UP WITH DR STODDARD IN HIS OFFICE FOLLOW UP WITH DR MURPHY IN HIS OFFICE FOLLOW UP WITH DR MARY CONTINUE HOME MEDICATION NEW PRESCRIPTION GIVEN AUGMENTIN BY MOUTH ONE TAB Q12H FOR 4 DAYS LASIX PO DAILY MUCINEX RANEXA 500 MG PO BID ACTIVITY TOLERATED CALL DR STODDARD OR GO TO THE EMERGENCY ROOM IF SYMPTOM RETURN OR WORSENING
[2018-10-06 12:17] VITALS: PULSE 91
--- NOTE | 2018-10-06 21:20 | CP.PCM.DIS ---
Provider - Provider Date of Admission: 10/02/18 21:07 Attending physician: Esau Gordillo MD Consults: 10/02/18 23:05 Pulmonology Consult Routine Comment: Consulting Provider: Armond Andersen Consulting Physician: Armond Andersen Reason for Consult: dyspnea 10/03/18 14:53 Cardiology Consult Routine Comment: Consulting Provider: Arsenio Lang Consulting Physician: Arsenio Lang Reason for Consult: chf Time Spent in preparation of Discharge (in minutes): 30 Hospital Course - Lab Results Lab Results: Most Recent Lab Values WBC 5.9 K/uL (4.8-10.8) 10/02/18 20:08 RBC 4.45 Mil/uL (4.40-5.90) 10/02/18 20:08 Hgb 12.0 g/dL (12.0-18.0) 10/02/18 20:08 Hct 36.7 % (35.0-51.0) 10/02/18 20:08 MCV 82.5 fL (80.0-94.0) D 10/02/18 20:08 MCH 26.9 pg (27.0-31.0) L 10/02/18 20:08 MCHC 32.6 g/dL (33.0-37.0) L 10/02/18 20:08 RDW 13.4 % (11.5-14.5) 10/02/18 20:08 Plt Count 229 K/uL (130-400) 10/02/18 20:08 MPV 8.5 fL (7.2-11.7) 10/02/18 20:08 Neut % (Auto) 76.8 % (50.0-75.0) H 10/02/18 20:08 Lymph % (Auto) 16.2 % (20.0-40.0) L 10/02/18 20:08 Mcintosh % (Auto) 5.3 % (0.0-10.0) 10/02/18 20:08 Eos % (Auto) 1.2 % (0.0-4.0) 10/02/18 20:08 Baso % (Auto) 0.5 % (0.0-2.0) 10/02/18 20:08 Neut # (Auto) 4.6 K/uL (1.8-7.0) 10/02/18 20:08 Lymph # (Auto) 1.0 K/uL (1.0-4.3) 10/02/18 20:08 Mcintosh # (Auto) 0.3 K/uL (0.0-0.8) 10/02/18 20:08 Eos # (Auto) 0.1 K/uL (0.0-0.7) 10/02/18 20:08 Baso # (Auto) 0.0 K/uL (0.0-0.2) 10/02/18 20:08 D-Dimer, Quantitative 750 ng/mlDDU (0-243) H 10/02/18 20:08 Sodium 136 mmol/L (132-148) 10/04/18 11:10 Potassium 3.6 mmol/L (3.6-5.2) 10/04/18 11:10 Chloride 99 mmol/L (98-107) 10/04/18 11:10 Carbon Dioxide 32 mmol/L (22-30) H 10/04/18 11:10 Anion Gap 9 (10-20) L 10/04/18 11:10 BUN 22 mg/dL (9-20) H 10/04/18 11:10 Creatinine 1.0 mg/dL (0.8-1.5) 10/04/18 11:10 Est GFR ( Amer) > 60 10/04/18 11:10 Est GFR (Non-Af Amer) > 60 10/04/18 11:10 POC Glucose (mg/dL) 247 mg/dL (65-110) H 10/06/18 11:57 Random Glucose 181 mg/dL (75-110) H 10/04/18 11:10 Calcium 8.2 mg/dl (8.6-10.4) L 10/04/18 11:10 Total Bilirubin 0.5 mg/dL (0.2-1.3) 10/02/18 20:08 AST 34 U/L (17-59) 10/02/18 20:08 ALT 47 U/L (21-72) 10/02/18 20:08 Alkaline Phosphatase 126 U/L (38-126) D 10/02/18 20:08 Total Creatine Kinase 38 U/L (55-170) L 10/03/18 11:15 CK-MB (Mass) 0.85 ng/mL (0.0-3.38) 10/03/18 11:15 Troponin I 0.0170 ng/mL (0.00-0.120) 10/03/18 11:15 NT-Pro-B Natriuret Pep 4430 pg/mL (0-900) H 10/02/18 20:08 Total Protein 7.3 g/dL (6.3-8.3) 10/02/18 20:08 Albumin 3.9 g/dL (3.5-5.0) 10/02/18 20:08 Globulin 3.4 gm/dL (2.2-3.9) 10/02/18 20:08 Albumin/Globulin Ratio 1.2 (1.0-2.1) 10/02/18 20:08 Procalcitonin < 0.05 NG/ML (0.19-0.49) L 10/05/18 19:50 Discharge Exam - Head Exam Head Exam: ATRAUMATIC, NORMOCEPHALIC Discharge Plan - Discharge Medications Prescriptions: Amoxicillin/Clavulanate [Augmentin 875 MG-125 MG] 1 tab PO Q12H 4 Days tab Albuterol/Ipratropium [Duoneb 3 mg/0.5 mg (3 ml) UD] 3 ml INH RQ6 30 Days neb Furosemide [Lasix] 20 mg PO DAILY 30 Days tablet guaiFENesin [Mucinex LA] 600 mg PO BID 10 Days tab Ranolazine [Ranexa] 500 mg PO BID [address] - Follow Up Plan Condition: STABLE Disposition: HOME/ ROUTINE Instructions: Ranolazine, Heart Healthy Diet, Heart Failure, Adult (DC), Pneumonia, Adult (DC), Chest Pain (DC), Amoxicillin and Clavulanate, Furosemide, Guaifenesin Additional Instructions: FOLLOW UP WITH DR GORDILLO IN HIS OFFICE FOLLOW UP WITH DR ANDERSEN IN HIS OFFICE FOLLOW UP WITH DR LANG CONTINUE HOME MEDICATION NEW PRESCRIPTION GIVEN AUGMENTIN BY MOUTH ONE TAB Q12H FOR 4 DAYS LASIX PO DAILY MUCINEX RANEXA 500 MG PO BID duoneb tx ACTIVITY TOLERATED CALL DR GORDILLO OR GO TO THE EMERGENCY ROOM IF SYMPTOM RETURN OR WORSENING Referrals: Armond Andersen MD [Staff Provider] - Arsenio Lang MD [Staff Provider] - Esau Gordillo MD [Staff Provider] - 10/14/18 11:30 am
--- NOTE | 2018-10-07 06:57 | DS ---
DISCHARGE DIAGNOSES: 1. Tracheobronchitis. 2. Ischemic dilated cardiomyopathy. 3. Coronary artery disease. 4. Hypertension. 5. Diabetes. 6. Hyperlipidemia. HISTORY OF PRESENT ILLNESS: This is a 63-year-old male with a history of multiple medical problems including dilated cardiomyopathy, congestive heart failure, hypertension. Patient came in because of shortness of breath, cough. He was found to have some chest infection, given antibiotic. Cardiac enzymes x3 were negative. Patient was seen and patient is for discharge. Troponin x3 were negative. PHYSICAL EXAMINATION: VITAL SIGNS: Blood pressure 124/78, pulse 82, respiratory rate 20, temperature 97.7. LUNGS: Bilateral rales and rhonchi. CARDIOVASCULAR SYSTEM: S1 and S2, regular. ABDOMEN: Soft. ASSESSMENT: 1. Tracheobronchitis, rule out. 2. Ischemic dilated cardiomyopathy. PLAN: Discharge the patient. Esau Gordillo MD
== END 2018-10-06 12:50 | disposition home or self-care (01) ==
LOC: C.ER 19:04 → C.9E 21:07 → C.6T 10-03 16:40
PROVIDERS: ADMIT Internal Medicine; ATTEND Internal Medicine
DX: J40 Bronchitis, not specified as acute or chronic (principal); J18.9 Pneumonia, unspecified organism; I25.5 Ischemic cardiomyopathy; I42.0 Dilated cardiomyopathy; I25.10 Atherosclerotic heart disease of native coronary artery without angina pectoris; Z95.5 Presence of coronary angioplasty implant and graft; I11.0 Hypertensive heart disease with heart failure; I50.9 Heart failure, unspecified; E11.9 Type 2 diabetes mellitus without complications; Z21 Asymptomatic human immunodeficiency virus [HIV] infection status; E78.2 Mixed hyperlipidemia; F17.200 Nicotine dependence, unspecified, uncomplicated; Z86.73 Personal history of transient ischemic attack (TIA), and cerebral infarction without residual deficits; Z79.2 Long term (current) use of antibiotics; Z79.82 Long term (current) use of aspirin; Z79.84 Long term (current) use of oral hypoglycemic drugs; Z79.899 Other long term (current) drug therapy
CPT/HCPCS: 36415; 71046; 71275; 80048; 80053; 82948; 83880; 84145; 84484; 85025; 85378; 93005; 94640; 96365; 96372; 96374; 99285; G0378; J1650; J1940; J2543; J7050

== ENCOUNTER 2018-10-28 10:18 | Inpatient (IN) | payer OTHER ==
[2018-10-28 10:23] VITALS: BMI 24.3
--- NOTE | 2018-10-28 10:36 | C.PDOC ---
History Of Present Illness 63-year-old male with history of hypertension, diabetes, hyperlipidemia, coronary artery disease status post stent placement, tobacco use disorder, CHF with ejection fraction 20% (08/2018) presented to emergency room with shortness of breath. Patient BIBA on CPAP, <Bri Purdy - Last Filed: 10/28/18 10:33> Patient has 22 pack year smoking history. <Ghulam Shaw DO - Last Filed: 10/28/18 18:38> <Bri Purdy - Last Filed: 10/28/18 10:33> History Per: Patient History/Exam Limitations: no limitations Onset/Duration Of Symptoms: Days Current Symptoms Are (Timing): Still Present Severity: Moderate <Ghulam Shaw DO - Last Filed: 10/28/18 18:38> Time Seen by Provider: 10/28/18 10:22 Chief Complaint (Nursing): Respiratory Distress Past Medical History Vital Signs: Last Vital Signs Temp Pulse Resp 31 H 10/28/18 10:31 BP Pulse Ox - Medical History PMH: Arthritis, Bronchitis, CAD, Diabetes, HIV (undetectable), HTN, Hypercholes terolemia Denies: Chronic Kidney Disease Surgical History: Coronary Stent (cardiac cath with stent placement) Denies: Pacemaker - [facility] Procedures DILATION OF 1 COR ART WITH DRUG-ELUT INTRA, PERC APPROACH (08/16/17) FLUOROSCOPY OF LEFT HEART USING LOW OSMOLAR CONTRAST (12/24/17) FLUOROSCOPY OF MULT COR ART USING L OSM CONTRAST (08/09/18) FLUOROSCOPY OF RIGHT AND LEFT HEART USING L OSM CONTRAST (08/09/18) MEASURE CARDIAC SAMPL & PRESSURE, BILATERAL, PERC (08/09/18) MEASURE OF CARDIAC SAMPL & PRESSURE, L HEART, PERC APPROACH (12/24/17) MEASUREMENT OF ARTERIAL PRESSURE, CORONARY, PERC APPROACH (08/16/17) ULTRASONOGRAPHY OF RIGHT AND LEFT HEART, TRANSESOPHAGEAL (09/10/16) Family History: States: Diabetes, Hypertension - Social History Hx Tobacco Use: Yes (1/2 pack daily) Hx Alcohol Use: No Hx Substance Use: No - Immunization History Hx Tetanus Toxoid Vaccination: No Hx Influenza Vaccination: No Hx Pneumococcal Vaccination: No <Bri Purdy - Last Filed: 10/28/18 10:33> Reviewed: Historical Data, Nursing Documentation, Vital Signs Vital Signs: Last Vital Signs Temp 97.5 F L 10/28/18 16:23 Pulse 90 10/28/18 16:23 Resp 20 10/28/18 16:23 BP 122/68 10/28/18 16:23 Pulse Ox 95 10/28/18 16:23 - [facility] Procedures DILATION OF 1 COR ART WITH DRUG-ELUT INTRA, PERC APPROACH (08/16/17) FLUOROSCOPY OF LEFT HEART USING LOW OSMOLAR CONTRAST (12/24/17) FLUOROSCOPY OF MULT COR ART USING L OSM CONTRAST (08/09/18) FLUOROSCOPY OF RIGHT AND LEFT HEART USING L OSM CONTRAST (08/09/18) MEASURE CARDIAC SAMPL & PRESSURE, BILATERAL, PERC (08/09/18) MEASURE OF CARDIAC SAMPL & PRESSURE, L HEART, PERC APPROACH (12/24/17) MEASUREMENT OF ARTERIAL PRESSURE, CORONARY, PERC APPROACH (08/16/17) ULTRASONOGRAPHY OF RIGHT AND LEFT HEART, TRANSESOPHAGEAL (09/10/16) <Ghulam Shaw DO Last Filed: 10/28/18 18:38> Review Of Systems Except As Marked, All Systems Reviewed And Found Negative. Constitutional: Negative for: Fever, Chills Cardiovascular: Negative for: Chest Pain Respiratory: Positive for: Shortness of Breath Gastrointestinal: Negative for: Nausea, Vomiting <Ghulam Shaw DO Last Filed: 10/28/18 18:38> Physical Exam - Physical Exam Appears: Other (mild to moderate distress, anxious) Skin: Normal Color, Warm, Dry Head: Atraumatic, Normacephalic Eye(s): bilateral: Normal Inspection Nose: Normal Oral Mucosa: Moist Neck: Supple Chest: Symmetrical Cardiovascular: Rhythm Regular, Murmur (systolic murmur) Respiratory: Rales, No Rhonchi, No Wheezing Gastrointestinal/Abdominal: Soft, No Tenderness, No Guarding, No Rebound Extremity: Normal ROM, Other (bilateral 1+ pitting edema) Neurological/Psych: Oriented x3, Normal Speech <Ghulam Shaw DO Last Filed: 10/28/18 18:38> ED Course And Treatment - Laboratory Results Result Diagrams: 10/28/18 10:42 10/28/18 10:42 Lab Results: Puncture Site Rra 10/28/18 11:00 pCO2 41 mm/Hg (35-45) 10/28/18 11:00 pO2 184 mm/Hg (80-100) H 10/28/18 11:00 HCO3 23.8 mmol/L (21-28) 10/28/18 11:00 ABG pH 7.37 (7.35-7.45) 10/28/18 11:00 ABG Total CO2 25.0 mmol/L (22-28) 10/28/18 11:00 ABG O2 Saturation 99.6 % (95-98) H 10/28/18 11:00 ABG Base Excess -1.5 mmol/L (-2.0-3.0) 10/28/18 11:00 Moises Test Po 10/28/18 11:00 ABG Potassium 3.0 mmol/L (3.6-5.2) L 10/28/18 11:00 A-a O2 Difference 478.0 mm/Hg 10/28/18 11:00 Respiratory Index 2.6 10/28/18 11:00 Sodium 141.0 mmol/l (132-148) 10/28/18 11:00 Chloride 113.0 mmol/L (98-107) H 10/28/18 11:00 Glucose 185 mg/dl (75-110) H 10/28/18 11:00 Lactate 1.0 mmol/L (0.7-2.1) 10/28/18 11:00 Vent Mode Bipap 10/28/18 11:00 FiO2 100.0 % 10/28/18 11:00 Inspiratory BiPAP 12 10/28/18 11:00 Expiratory BiPAP 6 10/28/18 11:00 Troponin I 0.0210 ng/mL (0.00-0.120) 10/28/18 10:42 NT-Pro-B Natriuret Pep 3160 pg/mL (0-900) H 10/28/18 10:42 Total Bilirubin 0.6 mg/dL (0.2-1.3) 10/28/18 10:42 AST 25 U/L (17-59) 10/28/18 10:42 ALT 32 U/L (21-72) 10/28/18 10:42 Alkaline Phosphatase 150 U/L (38-126) H 10/28/18 10:42 Total Protein 8.4 g/dL (6.3-8.3) H 10/28/18 10:42 Albumin 4.4 g/dL (3.5-5.0) 10/28/18 10:42 Globulin 4.0 gm/dL (2.2-3.9) H 10/28/18 10:42 Albumin/Globulin Ratio 1.1 (1.0-2.1) 10/28/18 10:42 O2 Sat by Pulse Oximetry: 99 (RA) Pulse Ox Interpretation: Normal <Johnsonlakeshia RODRIGUEZGhulam - Last Filed: 10/28/18 18:38> Critical Care Time - Critical Care Note Total Time (in mins): 60 Documented critical care: time excludes all time spent performing seperately billable procedures. <Jenniferjanie RODRIGUEZGhulam Last Filed: 10/28/18 18:38> Medical Decision Making Medical Decision Making: Plan: --Labs --ECG --CXR --Lasix IV Updates: 12:56 Patient was placed on BIPAP and then placed on nasal cannula. 14:30 Patient has pulse O2 saturation 95 with room air. Case discussed with . Patient has been admitted under the service of . <Jenniferjanie RODRIGUEZGhulam - Last Filed: 10/28/18 18:38> Disposition <Bri Purdy - Last Filed: 10/28/18 10:33> - Disposition Disposition Time: 12:30 <Jenniferjanie RODRIGUEZGhulam - Last Filed: 10/28/18 18:38> - Disposition Disposition: HOSPITALIZED Condition: FAIR - Clinical Impression Clinical Impression: CHF (congestive heart failure) - Scribe Statement The provider has reviewed the documentation as recorded by the Helene Choudhury Provider Attestation All medical record entries made by the Elysiaibdivya were at my direction and personally dictated by me. I have reviewed the chart and agree that the record accurately reflects my personal performance of the history, physical exam, medical decision making, and the department course for this patient. I have also personally directed, reviewed, and agree with the discharge instructions and disposition. <Colin RODRIGUEZGhulam - Last Filed: 10/28/18 18:38>
--- NOTE | 2018-10-28 10:59 | RAD ---
Date of service: 10/28/2018 PROCEDURE: CHEST RADIOGRAPH, 1 VIEW HISTORY: SOB COMPARISON: 10/02/2018. FINDINGS: LUNGS: The lungs are well inflated. There is worsening pulmonary venous congestion and interstitial pulmonary edema. There is bibasilar atelectasis. PLEURA: Worsening bilateral pleural effusions. No pneumothorax. CARDIOVASCULAR: Stable mild cardiomegaly. No aortic atherosclerotic calcifications present. OSSEOUS STRUCTURES: Within normal limits for the patient's age. VISUALIZED UPPER ABDOMEN: Normal. OTHER FINDINGS: None. IMPRESSION: Worsening congestive heart failure.
[2018-10-28 11:01] LABS: BASO % 0.4 % (0.0-2.0); EOS # 0.2 K/uL (0.0-0.7); EOS % 2.6 % (0.0-4.0); LYMPH # 2.3 K/uL (1.0-4.3); LYMPH % 23.7 % (20.0-40.0); MEAN CELL VOLUME 82.7 fL (80.0-94.0); MEAN CORPUSCULAR HEMOGLOBIN 27.2 pg (27.0-31.0); MEAN CORPUSCULAR HGB CONC 32.9 g/dL (33.0-37.0); MEAN PLATELET VOLUME 8.5 fL (7.2-11.7); MONO # 0.7 K/uL (0.0-0.8); MONO % 7.8 % (0.0-10.0); NEUT # 6.3 K/uL (1.8-7.0); NEUT % 65.5 % (50.0-75.0); RBC 4.41 Mil/uL (4.40-5.90); RED CELL DISTRIBUTION WIDTH 14.3 % (11.5-14.5)
[2018-10-28 11:03] LABS: WHITE BLOOD COUNT 9.6 K/uL (4.8-10.8)
[2018-10-28 11:04] LABS: ABG ALLEN TEST PO; ARTERIAL BLOOD GAS HCO3 23.8 mmol/L (21-28); ARTERIAL BLOOD GAS O2 SAT 99.6 % (95-98); ARTERIAL BLOOD GAS PCO2 41 mm/Hg (35-45); ARTERIAL BLOOD GAS PH 7.37 (7.35-7.45); ARTERIAL BLOOD GAS PO2 184 mm/Hg (80-100)
[2018-10-28 11:23] LABS: ALB/GLOB RATIO 1.1 (1.0-2.1); ALBUMIN 4.4 g/dL (3.5-5.0); ALT/SGPT 32 U/L (21-72); AST/SGOT 25 U/L (17-59); BLOOD UREA NITROGEN 17 mg/dL (9-20); CALCIUM 8.9 mg/dl (8.6-10.4); GFR NON-AFRICAN AMERICAN > 60
[2018-10-28 11:25] LABS: B-TYPE NATRIURETIC PEPTIDE 3160 pg/mL (0-900)
[2018-10-28] MEDS ORDERED: Potassium Chloride 20 mEq ER Tab PO ONE (17:15)
[2018-10-28] MEDS: Albuterol-Ipratrop 3 mg / 0.5 (3 ml) UD INH SCH (19:41)
[2018-10-28] MEDS ORDERED: Albuterol-Ipratrop 20 mcg/actuation (4 g) INH PRN (20:00)
--- NOTE | 2018-10-28 20:16 | CP.PCM.PN ---
Subjective - Date & Time of Evaluation Date of Evaluation: 10/28/18 Time of Evaluation: 19:45 - Subjective Subjective: H&P dictated #[id number] Objective - Vital Signs/Intake and Output Vital Signs (last 24 hours): Temp Pulse Resp BP Pulse Ox 97.5 F L 91 H 20 122/68 99 10/28/18 16:23 10/28/18 19:43 10/28/18 16:23 10/28/18 16:23 10/28/18 18:38 - Medications Medications: Current Medications Albuterol/Ipratropium (Duoneb 3 Mg/0.5 Mg (3 Ml) Ud) 3 ml INH RQ6 [facility] Last Admin: 10/28/18 19:41 Dose: 3 ml Albuterol/Ipratropium (Combivent Respimat) 1 puff INH RQ12 PRN PRN Reason: WHEEZING Aspirin (Ecotrin) 81 mg PO DAILY [facility] Clopidogrel Bisulfate (Plavix) 75 mg PO DAILY [facility] Furosemide (Lasix) 40 mg IVP DAILY [facility] Gabapentin (Neurontin) 400 mg PO HS [facility] Losartan Potassium (Cozaar) 100 mg PO DAILY [facility] Metformin HCl (Glucophage) 850 mg PO BID [facility] Last Admin: 10/28/18 19:50 Dose: 850 mg Metoprolol Succinate (Toprol Xl) 50 mg PO DAILY [facility] Sitagliptin Phosphate (Januvia) 100 mg PO DAILY [facility] - Labs Labs: 10/28/18 10:42 10/28/18 10:42
[2018-10-29] MEDS: Albuterol-Ipratrop 3 mg / 0.5 (3 ml) UD INH SCH ×4 (01:20→19:21)
[2018-10-29 03:59] LABS: SQUAMOUS EPITHIAL < 1 /hpf (0-5); URINE BACTERIA RARE (<OCC); URINE BILIRUBIN NEGATIVE (NEGATIVE); URINE BLOOD 1+ (NEGATIVE); URINE CLARITY Clear (Clear); URINE COLOR Yellow (YELLOW); URINE GLUCOSE (UA) NORMAL (Normal); URINE LEUKOCYTE ESTERASE NEG Leu/uL (Negative); URINE PROTEIN 2+ mg/dL (NEGATIVE)
--- NOTE | 2018-10-29 04:17 | HP ---
CHIEF COMPLAINT: Progressive worsening of dyspnea on exertion, shortness of breath and PND, progressively getting worse for the past two days. HISTORY OF PRESENT ILLNESS: Mr. Schultz is a 63-year-old male with past medical history of hypertension, hyperlipidemia, diabetes mellitus, CAD, cardiomyopathy, CHF, status post stent placement about a year ago who has been following up with Dr. 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 He underwent cardiac catheterization in 08/2018, and EF was 30% to 40% at that time. Underwent stent placement, done by Dr. Lang. Came into the emergency room with complaints of progressive worsening of dyspnea on exertion, orthopnea, paroxysmal nocturnal dyspnea, not able to sleep and not able to walk to the bathroom at home, progressively getting worse over the past two days. Denied any chest pain. Denied any headache or dizziness. Denied any nausea, vomiting or abdominal pain. Denied any urinary complaints. Denied any neurologic symptoms. In the ED, the patient was found to be in CHF exacerbation. The patient is being admitted. When I examined, the patient is slightly better but still complaining of dyspnea on exertion. PAST MEDICAL HISTORY: As described, hypertension, hyperlipidemia, diabetes mellitus, coronary artery disease, congestive heart failure, ischemic cardiomyopathy, status post stent placement. PAST SURGICAL HISTORY: Coronary stent placement. FAMILY HISTORY: Coronary artery disease in mother and sister. Diabetes in brother and sister. PERSONAL HISTORY: He is single. Having three children. Lives alone. Unemployed. SOCIAL HISTORY: Smokes 10 cigarettes per day for more than 40 years. Denies any alcohol or drug abuse. ALLERGIES: DENIES ANY DRUG ALLERGIES. MEDICATIONS: Include metformin 850 mg b.i.d., Mucinex 600 mg b.i.d., Januvia 100 mg daily, Ranexa 500 mg b.i.d., metoprolol 50 mg daily, Cozaar 100 mg daily, gabapentin 400 mg p.o. at bedtime, Lasix 20 mg daily, Combivent two puffs every 12 hours p.r.n., Plavix 75 mg daily, aspirin 81 mg daily, Augmentin b.i.d., Duoneb every 6 hours. REVIEW OF SYSTEMS: As described in history of present illness. All other systems reviewed and were found to be negative. PHYSICAL EXAMINATION: GENERAL: Middle-aged male, sitting in bed, in no acute distress. VITAL SIGNS: Blood pressure 122/68, pulse 90, respirations 20, temperature 97.5 degrees Fahrenheit, O2 saturation 95% on room air. HEENT: Pupils equal, round, and reacting to light and accommodation. Extraocular muscles are intact. No icterus. No pallor. No oral thrush. No pharyngeal congestion. NECK: Supple. No JVD. No thyromegaly. CHEST: Moving equally bilaterally on respiration. LUNGS: Bilateral vesicular breath sounds. No wheezing. No rhonchi. CARDIOVASCULAR: S1 and S2 present, regular. ABDOMEN: Soft and nontender. Bowel sounds present. No guarding. No rigidity. No rebound tenderness noted. CENTRAL NERVOUS SYSTEM: Alert, awake, oriented x3. No focal deficits noted. EXTREMITIES: 1+ edema. Palpable peripheral pulses. LABORATORY DATA: Labs done from the emergency room: WBC 9.6, hemoglobin 12, hematocrit 36.4, and platelets 316. Sodium 140, potassium 3.5, chloride 105, bicarbonate 28, BUN 17, creatinine 0.8, glucose 186, calcium 8.9, total bilirubin 0.6. AST 25, ALT 32, alkaline phosphatase 150. Cardiac enzymes x3 negative. ProBNP 3160. Total troponin 8.4, albumin 4.4. Influenza negative. Chest x-ray consistent with worsening congestive heart failure. EKG consistent with sinus tachycardia at 105 beats per minute, nonspecific T-wave abnormality. ASSESSMENT: Middle-aged male with history of hypertension, hyperlipidemia, diabetes mellitus, coronary artery disease, congestive heart failure, ischemic cardiomyopathy, status post catheterization and stent placement about a year ago. Came in with two days of progressive worsening of shortness of breath, dyspnea on exertion, paroxysmal nocturnal dyspnea and orthopnea. In the emergency department, the patient was found to be in congestive heart failure exacerbation, and the patient is being admitted for further management. 1. Acute on chronic systolic congestive heart failure, rule out acute coronary syndrome. 2. Coronary artery disease. 3. Ischemic cardiomyopathy, status post stent placement. 4. Hypertension. 5. Diabetes mellitus. 6. Hyperlipidemia. 7. Arthritis. PLAN: The patient is being admitted to cardiac telemetry. We will do serial cardiac enzymes, serial EKGs. We will check echocardiogram. We will give aspirin 81 mg daily, Plavix 75 mg daily, Lasix 40 mg IV daily. Continue with Cozaar and metoprolol. We will do Accu-Chek every before meals and at bedtime. Continue with his home diabetic medications. We will do hemoglobin A1c level. Check lipid profile. We will obtain cardiology evaluation with Dr. Lang. We will add further recommendation as his clinical course progresses. Brock Anne MD
--- NOTE | 2018-10-29 07:18 | CP.PCM.CON ---
History of Present Illness - History of Present Illness History of Present Illness: Pelon Anderson PGY1 Cardio consult for Dr Lang Pt is a 63 yo male with a PMH of HTN, DM, HLD, HIV, Hep C, and CAD with stent, tobacco abuse, and CHF who presented to the emergency department complaining of SOB and chest tightness. Pt states the SOB began about 3 days ago with associated non productive cough. Pt states he experienced chest tightness during this time but denies pain. Pt states he has experienced trouble sleeping on his back for the past 3 days, and finds himself waking up gasping for air. Pt denies swelling of his lower extremities. Pt states he has been taking his medications regularly and has not missed been missing any doses. Pt is unemployed since 2000 due to arthritis. A 12 point ROS was obtained and added to the HPI where appropriate. Past Patient History - Infectious Disease Hx of Infectious Diseases: None - Past Medical History & Family History Past Medical History?: Yes - Past Social History Smoking Status: Current Some Days Smoker - CARDIAC Hx Cardiac Disorders: Yes Hx Hypercholesterolemia: Yes Hx Hypertension: Yes Hx Pacemaker: No - PULMONARY Hx Respiratory Disorders: Yes Hx Bronchitis: Yes - NEUROLOGICAL Hx Neurological Disorder: No HX Cerebrovascular Accident: No - HEENT Hx HEENT Problems: No - RENAL Hx Chronic Kidney Disease: No - ENDOCRINE/METABOLIC Hx Endocrine Disorders: Yes Hx Diabetes Mellitus Type 2: Yes - HEMATOLOGICAL/ONCOLOGICAL Hx Human Immunodeficiency Virus (HIV): Yes (undetectable) - INTEGUMENTARY Hx Dermatological Problems: No - MUSCULOSKELETAL/RHEUMATOLOGICAL Hx Musculoskeletal Disorders: Yes Hx Arthritis: Yes Hx Falls: No - GASTROINTESTINAL Hx Gastrointestinal Disorders: No - GENITOURINARY/GYNECOLOGICAL Hx Genitourinary Disorders: No - PSYCHIATRIC Hx Substance Use: Yes - SURGICAL HISTORY Hx Surgeries: Yes Hx Coronary Stent: Yes (cardiac cath with stent placement) - ANESTHESIA Hx Anesthesia: Yes Hx Anesthesia Reactions: No Hx Malignant Hyperthermia: No Has any member of the family had a problem w/ anesthesia?: No Meds Allergies/Adverse Reactions: Allergies Allergy/AdvReac Type Severity Reaction Status Date / Time No Known Allergies Allergy Verified 10/28/18 10:22 - Medications Medications: Current Medications Albuterol/Ipratropium (Duoneb 3 Mg/0.5 Mg (3 Ml) Ud) 3 ml INH RQ6 [facility] Last Admin: 10/29/18 01:20 Dose: 3 ml Albuterol/Ipratropium (Combivent Respimat) 1 puff INH RQ12 PRN PRN Reason: WHEEZING Aspirin (Ecotrin) 81 mg PO DAILY [facility] Clopidogrel Bisulfate (Plavix) 75 mg PO DAILY [facility] Furosemide (Lasix) 40 mg IVP DAILY [facility] Gabapentin (Neurontin) 400 mg PO HS [facility] Last Admin: 10/28/18 21:30 Dose: 400 mg Losartan Potassium (Cozaar) 100 mg PO DAILY [facility] Metformin HCl (Glucophage) 850 mg PO BID [facility] Last Admin: 10/28/18 19:50 Dose: 850 mg Metoprolol Succinate (Toprol Xl) 50 mg PO DAILY [facility] Sitagliptin Phosphate (Januvia) 100 mg PO DAILY [facility] Physical Exam - Constitutional Appears: No Acute Distress - Head Exam Head Exam: ATRAUMATIC, NORMOCEPHALIC - Eye Exam Eye Exam: EOMI - ENT Exam ENT Exam: Mucous Membranes Moist - Neck Exam Neck exam: Positive for: Full Rom - Respiratory Exam Respiratory Exam: Clear to Auscultation Bilateral, NORMAL BREATHING PATTERN. absent: Accessory Muscle Use, Respiratory Distress - Cardiovascular Exam Cardiovascular Exam: RRR, +S1, +S2. absent: Diastolic murmur, Systolic Murmur - GI/Abdominal Exam GI & Abdominal Exam: Normal Bowel Sounds, Soft - Extremities Exam Extremities exam: Positive for: full ROM, pedal pulses present. Negative for: calf tenderness, pedal edema, tenderness - Neurological Exam Neurological exam: Alert, Oriented x3 - Psychiatric Exam Psychiatric exam: Normal Affect, Normal Mood - Skin Skin Exam: Dry, Normal Color, Warm Results - Vital Signs Recent Vital Signs: Last Vital Signs Temp 97.9 F 10/28/18 23:53 Pulse 103 H 10/29/18 04:00 Resp 20 10/28/18 23:53 BP 131/79 10/28/18 23:53 Pulse Ox 94 L 10/28/18 23:53 - Labs Result Diagrams: 10/29/18 06:54 10/29/18 06:54 Labs: Laboratory Results - last 24 hr 10/28/18 10/28/18 10/28/18 10:42 10:42 10:42 WBC 9.6 D RBC 4.41 Hgb 12.0 Hct 36.4 MCV 82.7 MCH 27.2 MCHC 32.9 L RDW 14.3 Plt Count 316 MPV 8.5 Neut % (Auto) 65.5 Lymph % (Auto) 23.7 Travis % (Auto) 7.8 Eos % (Auto) 2.6 Baso % (Auto) 0.4 Neut # (Auto) 6.3 Lymph # (Auto) 2.3 Travis # (Auto) 0.7 Eos # (Auto) 0.2 Baso # (Auto) 0.0 Puncture Site pCO2 pO2 HCO3 ABG pH ABG Total CO2 ABG O2 Saturation ABG Base Excess Moises Test ABG Potassium A-a O2 Difference Respiratory Index Glucose Lactate Vent Mode FiO2 Inspiratory BiPAP Expiratory BiPAP Sodium 140 Potassium 3.5 L Chloride 105 Carbon Dioxide 28 Anion Gap 11 BUN 17 Creatinine 0.8 Est GFR ( Amer) > 60 Est GFR (Non-Af Amer) > 60 Random Glucose 186 H Calcium 8.9 Total Bilirubin 0.6 AST 25 ALT 32 Alkaline Phosphatase 150 H Troponin I 0.0210 NT-Pro-B Natriuret Pep 3160 H Total Protein 8.4 H Albumin 4.4 Globulin 4.0 H Albumin/Globulin Ratio 1.1 Arterial Blood Potassium Urine Color Urine Clarity Urine pH Ur Specific Round O Urine Protein Urine Glucose (UA) Urine Ketones Urine Blood Urine Nitrate Urine Bilirubin Urine Urobilinogen Ur Leukocyte Esterase Urine WBC (Auto) Urine RBC (Auto) Ur Squamous Epith Cells Urine Bacteria Influenza Typ A,B (EIA) Negative for flu a/b 10/28/18 10/28/18 10/29/18 11:00 19:49 03:44 WBC RBC Hgb Hct MCV MCH MCHC RDW Plt Count MPV Neut % (Auto) Lymph % (Auto) Travis % (Auto) Eos % (Auto) Baso % (Auto) Neut # (Auto) Lymph # (Auto) Travis # (Auto) Eos # (Auto) Baso # (Auto) Puncture Site Rra pCO2 41 pO2 184 H HCO3 23.8 ABG pH 7.37 ABG Total CO2 25.0 ABG O2 Saturation 99.6 H ABG Base Excess -1.5 Moises Test Po ABG Potassium 3.0 L A-a O2 Difference 478.0 Respiratory Index 2.6 Glucose 185 H Lactate 1.0 Vent Mode Bipap FiO2 100.0 Inspiratory BiPAP 12 Expiratory BiPAP 6 Sodium 141.0 Potassium Chloride 113.0 H Carbon Dioxide Anion Gap BUN Creatinine Est GFR ( Amer) Est GFR (Non-Af Amer) Random Glucose Calcium Total Bilirubin AST ALT Alkaline Phosphatase Troponin I 0.0330 NT-Pro-B Natriuret Pep Total Protein Albumin Globulin Albumin/Globulin Ratio Arterial Blood Potassium 3.0 L Urine Color Yellow Urine Clarity Clear Urine pH 5.0 Ur Specific Round O 1.017 Urine Protein 2+ H Urine Glucose (UA) Normal Urine Ketones Negative Urine Blood 1+ H Urine Nitrate Negative Urine Bilirubin Negative Urine Urobilinogen 4.0 Ur Leukocyte Esterase Neg Urine WBC (Auto) 4 Urine RBC (Auto) 7 H Ur Squamous Epith Cells < 1 Urine Bacteria Rare Influenza Typ A,B (EIA) Assessment & Plan - Assessment and Plan (Free Text) Assessment: CHF exacerbation CAD with stent Tobacco abuse HTN DM HLD Plan: CHF exacerbation Tobacco abuse Trop 10/28 negative x2 BNP 3160 HA1C follow up EKG 10/28/18 sinus tachycardia, no ST or T wave abnormalities ECHO follow up continue lasix Medications duonebs ASA Plavix Lasix 40 IVP cozaar metoprolol Januvia Pt seen, examined, assessment and plan discussed with Dr Rickey Anderson PGY1 - Date & Time Date: 10/29/18 Time: 06:00
[2018-10-29 07:49] LABS: BASO % 0.4 % (0.0-2.0); EOS # 0.1 K/uL (0.0-0.7); HEMOGLOBIN 10.6 g/dL (12.0-18.0); LYMPH % 13.1 % (20.0-40.0); MEAN CELL VOLUME 81.6 fL (80.0-94.0); MEAN CORPUSCULAR HEMOGLOBIN 27.1 pg (27.0-31.0); MEAN CORPUSCULAR HGB CONC 33.3 g/dL (33.0-37.0); MEAN PLATELET VOLUME 8.3 fL (7.2-11.7); MONO # 0.5 K/uL (0.0-0.8); NEUT # 5.9 K/uL (1.8-7.0); NEUT % 77.5 % (50.0-75.0); RBC 3.92 Mil/uL (4.40-5.90); RED CELL DISTRIBUTION WIDTH 14.4 % (11.5-14.5); WHITE BLOOD COUNT 7.5 K/uL (4.8-10.8)
[2018-10-29 08:04] LABS: ALB/GLOB RATIO 1.1 (1.0-2.1); ALBUMIN 3.5 g/dL (3.5-5.0); ALT/SGPT 26 U/L (21-72); AST/SGOT 23 U/L (17-59); BLOOD UREA NITROGEN 19 mg/dL (9-20); CALCIUM 8.6 mg/dl (8.6-10.4); GFR NON-AFRICAN AMERICAN > 60; HDL CHOLESTEROL 45 mg/dL (30-70)
[2018-10-29 08:14] LABS: LDL CHOLESTEROL 108 mg/dL (0-129)
[2018-10-29] MEDS: Metoprolol Succinate 50 mg XL Tab PO SCH (09:26)
--- NOTE | 2018-10-29 09:28 | CP.PCM.PN ---
Subjective - Date & Time of Evaluation Date of Evaluation: 10/29/18 Time of Evaluation: 09:28 - Subjective Subjective: Progress note dictated #[id number] Objective - Vital Signs/Intake and Output Vital Signs (last 24 hours): Temp Pulse Resp BP Pulse Ox 97.6 F 97 H 20 129/85 95 10/29/18 07:56 10/29/18 07:56 10/29/18 07:56 10/29/18 07:56 10/29/18 07:56 - Medications Medications: Current Medications Albuterol/Ipratropium (Duoneb 3 Mg/0.5 Mg (3 Ml) Ud) 3 ml INH RQ6 [facility] Last Admin: 10/29/18 01:20 Dose: 3 ml Albuterol/Ipratropium (Combivent Respimat) 1 puff INH RQ12 PRN PRN Reason: WHEEZING Aspirin (Ecotrin) 81 mg PO DAILY [facility] Clopidogrel Bisulfate (Plavix) 75 mg PO DAILY [facility] Enoxaparin Sodium (Lovenox) 40 mg SC DAILY [facility] Furosemide (Lasix) 40 mg IVP DAILY [facility] Gabapentin (Neurontin) 400 mg PO HS [facility] Last Admin: 10/28/18 21:30 Dose: 400 mg Losartan Potassium (Cozaar) 100 mg PO DAILY [facility] Metformin HCl (Glucophage) 850 mg PO BID [facility] Last Admin: 10/28/18 19:50 Dose: 850 mg Metoprolol Succinate (Toprol Xl) 50 mg PO DAILY [facility] Sitagliptin Phosphate (Januvia) 100 mg PO DAILY [facility] - Labs Labs: 10/29/18 06:54 10/29/18 06:54
[2018-10-29] MEDS: Enoxaparin 40 mg Syringe SC SCH (09:46)
[2018-10-29] MEDS: MethylPREDNISolone 40 mg Vial IVP SCH ×2 (10:33→19:32)
--- NOTE | 2018-10-29 15:08 | PN ---
DATE: 10/29/2018 SUBJECTIVE: The patient is seen and examined at bedside. The patient is complaining of more shortness of breath and wheezing this morning. He claims that he just got the Lasix. Denies any chest pain. Denies any headache or dizziness. All other systems reviewed and were found to be negative. PHYSICAL EXAMINATION: GENERAL: Middle-aged male, sitting in bed, in no acute distress. VITAL SIGNS: Blood pressure 129/85, pulse 97, respirations 20, temperature 97.6 degrees Fahrenheit, O2 saturation 95% on 2 L nasal cannula. HEENT: Pupils equal, round, and reacting to light and accommodation. Extraocular muscles are intact. No icterus. No pallor. No oral thrush. No pharyngeal congestion. NECK: Supple. No JVD. LUNGS: Bilateral vesicular breath sounds. Bilateral wheezing heard and also bilateral basal crackles heard. CARDIOVASCULAR: S1 and S2 present, regular. ABDOMEN: Soft and nontender. Bowel sounds present. No guarding. No rigidity. No rebound tenderness noted. CENTRAL NERVOUS SYSTEM: Alert, awake, oriented x3. No focal deficits noted. EXTREMITIES: Trace edema. Palpable peripheral pulses. MEDICATIONS: Include DuoNeb 3 mL every 6 hours, Combivent every 12 hours, aspirin 81 mg daily, Plavix 75 mg daily, Lovenox 40 mg subcutaneous daily, Pepcid 20 mg daily, Lasix 40 mg IV push daily, Neurontin 400 mg oral at night, Cozaar 100 mg daily, metformin 850 mg p.o. b.i.d., Solu-Medrol 40 mg IV push every 8 hours, Toprol 50 mg daily, Januvia 100 mg daily. LABORATORY DATA: Labs from this morning: WBC 7.5, hemoglobin 10.2, hematocrit 32, and platelets 222. Sodium 137, potassium 4, chloride 103, bicarbonate 27, BUN 19, creatinine 0.7, glucose 165. Hemoglobin A1c 7.2, calcium 8.6, phosphorus 3.4, magnesium 1.7. AST 23, ALT 26, alkaline phosphatase 130. Troponin x3 negative. Protein 6.7, albumin 3.5, cholesterol 178, LDL 108, HDL 45, triglycerides 95. UA specific gravity 1.017, pH 5, protein 2+, blood 1+, RBC 7. ASSESSMENT AND PLAN: Middle-aged male with history of hypertension, hyperlipidemia, diabetes mellitus, coronary artery disease, congestive heart failure, chronic obstructive pulmonary disease, ischemic cardiomyopathy, status post stent placement with recent echo showing ejection fraction of 25-30%, admitted for congestive heart failure exacerbation, acute coronary syndrome ruled out. No new EKG changes and negative cardiac enzymes. We will continue with his cardiac regimen. Also this morning, he had chronic obstructive pulmonary disease exacerbation, will continue with nebulizer treatments Combivent and we will start Solu-Medrol 40 mg IV every 8 hours. We will consider increasing Lasix to 40 mg IV daily depending on his symptomatology. Cardiology consult appreciated, follow up with cardiology. His blood pressure is stable on current regimen. Continue with current diabetic medication. We will add further recommendation as his clinical course progresses. Brock Anne MD
--- NOTE | 2018-10-29 18:01 | CARD ---
APPROVED REPORT Date of service: 10/28/2018 EKG Measurement Heart [id number] CT [id number] <Conclusion> Sinus tachycardia Possible Left atrial enlargement Nonspecific T wave abnormality Abnormal ECG
[2018-10-30] MEDS: Albuterol-Ipratrop 3 mg / 0.5 (3 ml) UD INH SCH ×4 (01:18→19:28)
[2018-10-30] MEDS: MethylPREDNISolone 40 mg Vial IVP SCH ×3 (02:47→18:50)
--- NOTE | 2018-10-30 06:48 | CP.PCM.PN ---
Subjective - Date & Time of Evaluation Date of Evaluation: 10/30/18 Time of Evaluation: 06:00 - Subjective Subjective: Pt seen, examined this morning at bedside. Pt states he feels he is improving. Objective - Vital Signs/Intake and Output Vital Signs (last 24 hours): Temp Pulse Resp BP Pulse Ox 98.1 F 87 20 136/84 94 L 10/29/18 17:18 10/29/18 23:50 10/29/18 23:50 10/29/18 23:50 10/29/18 23:50 Intake and Output: 10/29/18 10/30/18 18:59 06:59 Intake Total 800 600 Balance 800 600 - Medications Medications: Current Medications Albuterol/Ipratropium (Duoneb 3 Mg/0.5 Mg (3 Ml) Ud) 3 ml INH RQ6 [facility] Last Admin: 10/30/18 01:18 Dose: Not Given Albuterol/Ipratropium (Combivent Respimat) 1 puff INH RQ12 PRN PRN Reason: WHEEZING Aspirin (Ecotrin) 81 mg PO DAILY [facility] Last Admin: 10/29/18 09:29 Dose: 81 mg Clopidogrel Bisulfate (Plavix) 75 mg PO DAILY [facility] Last Admin: 10/29/18 09:26 Dose: 75 mg Enoxaparin Sodium (Lovenox) 40 mg SC DAILY [facility] Last Admin: 10/29/18 09:46 Dose: 40 mg Famotidine (Pepcid) 20 mg PO DAILY [facility] Last Admin: 10/29/18 10:33 Dose: 20 mg Furosemide (Lasix) 40 mg IVP Q12 [facility] Last Admin: 10/29/18 22:00 Dose: 40 mg Gabapentin (Neurontin) 400 mg PO HS [facility] Last Admin: 10/29/18 21:58 Dose: 400 mg Losartan Potassium (Cozaar) 100 mg PO DAILY [facility] Last Admin: 10/29/18 09:26 Dose: 100 mg Metformin HCl (Glucophage) 850 mg PO BID [facility] Last Admin: 10/29/18 19:32 Dose: 850 mg Methylprednisolone (Solu-Medrol) 40 mg IVP Q8H [facility] Last Admin: 10/30/18 02:47 Dose: 40 mg Metoprolol Succinate (Toprol Xl) 50 mg PO DAILY [facility] Last Admin: 10/29/18 09:26 Dose: 50 mg Rosuvastatin Calcium (Crestor) 20 mg PO HS [facility] Last Admin: 10/29/18 21:58 Dose: 20 mg Sitagliptin Phosphate (Januvia) 100 mg PO DAILY [facility] Last Admin: 10/29/18 09:27 Dose: 100 mg - Labs Labs: 10/29/18 06:54 10/29/18 06:54 - Head Exam Head Exam: ATRAUMATIC, NORMOCEPHALIC - Eye Exam Eye Exam: EOMI - ENT Exam ENT Exam: Mucous Membranes Moist - Neck Exam Neck Exam: Full ROM - Respiratory Exam Respiratory Exam: Clear to Ausculation Bilateral, NORMAL BREATHING PATTERN. ab sent: Respiratory Distress - Cardiovascular Exam Cardiovascular Exam: RRR, +S1, +S2. absent: Diastolic murmur, Murmur - GI/Abdominal Exam GI & Abdominal Exam: Soft, Normal Bowel Sounds - Extremities Exam Extremities Exam: Full ROM, Pedal Edema. absent: Calf Tenderness - Neurological Exam Neurological Exam: Alert, Awake, Oriented x3 - Psychiatric Exam Psychiatric exam: Normal Affect, Normal Mood - Skin Skin Exam: Dry, Normal Color, Warm Assessment and Plan - Assessment and Plan (Free Text) Assessment: CHF exacerbation CAD with stent Tobacco abuse HTN DM HLD Plan: CHF exacerbation Tobacco abuse Trop 10/28 negative x3 BNP 3160 HA1C 7.2 EKG 10/28/18 sinus tachycardia, no ST or T wave abnormalities ECHO follow up continue lasix have pt follow up as out pt after discharge Medications duonebs ASA Plavix Lasix 40 IVP q12 [facility] metoprolol Januvia crestor Pt seen, examined, assessment and plan discussed with Dr Rickey Anderson PGY1, Internal Medicine Resident
--- NOTE | 2018-10-30 09:35 | CP.PCM.PN ---
Subjective - Date & Time of Evaluation Date of Evaluation: 10/30/18 Time of Evaluation: 09:35 - Subjective Subjective: Progress note dictated #[id number] Objective - Vital Signs/Intake and Output Vital Signs (last 24 hours): Temp Pulse Resp BP Pulse Ox 97.7 F 98 H 20 134/84 94 L 10/30/18 07:05 10/30/18 08:36 10/30/18 07:05 10/30/18 07:05 10/30/18 07:05 Intake and Output: 10/30/18 10/30/18 06:59 18:59 Intake Total 600 300 Balance 600 300 - Medications Medications: Current Medications Albuterol/Ipratropium (Duoneb 3 Mg/0.5 Mg (3 Ml) Ud) 3 ml INH RQ6 [facility] Last Admin: 10/30/18 01:18 Dose: Not Given Albuterol/Ipratropium (Combivent Respimat) 1 puff INH RQ12 PRN PRN Reason: WHEEZING Aspirin (Ecotrin) 81 mg PO DAILY [facility] Last Admin: 10/29/18 09:29 Dose: 81 mg Clopidogrel Bisulfate (Plavix) 75 mg PO DAILY [facility] Last Admin: 10/29/18 09:26 Dose: 75 mg Enoxaparin Sodium (Lovenox) 40 mg SC DAILY [facility] Last Admin: 10/29/18 09:46 Dose: 40 mg Famotidine (Pepcid) 20 mg PO DAILY [facility] Last Admin: 10/29/18 10:33 Dose: 20 mg Furosemide (Lasix) 40 mg IVP Q12 [facility] Last Admin: 10/29/18 22:00 Dose: 40 mg Gabapentin (Neurontin) 400 mg PO HS [facility] Last Admin: 10/29/18 21:58 Dose: 400 mg Losartan Potassium (Cozaar) 100 mg PO DAILY [facility] Last Admin: 10/29/18 09:26 Dose: 100 mg Metformin HCl (Glucophage) 850 mg PO BID [facility] Last Admin: 10/29/18 19:32 Dose: 850 mg Methylprednisolone (Solu-Medrol) 40 mg IVP Q8H [facility] Last Admin: 10/30/18 02:47 Dose: 40 mg Metoprolol Succinate (Toprol Xl) 50 mg PO DAILY [facility] Last Admin: 10/29/18 09:26 Dose: 50 mg Rosuvastatin Calcium (Crestor) 20 mg PO HS [facility] Last Admin: 10/29/18 21:58 Dose: 20 mg Sitagliptin Phosphate (Januvia) 100 mg PO DAILY [facility] Last Admin: 10/29/18 09:27 Dose: 100 mg - Labs Labs: 10/29/18 06:54 10/29/18 06:54
[2018-10-30] MEDS: Enoxaparin 40 mg Syringe SC SCH (10:44)
[2018-10-30] MEDS: Promethazine 6.25 MG/5 ML CUP PO PRN ×2 (11:09→19:12)
[2018-10-30] MEDS: Metoprolol Succinate 50 mg XL Tab PO SCH (11:12)
[2018-10-30] MEDS: Amoxicillin-Clav 875-125 mg Tab PO SCH ×2 (12:37→22:27)
--- NOTE | 2018-10-30 17:12 | VASCLAB ---
Date of service: 10/30/2018 PROCEDURE: Lower Extremity Venous Duplex Exam. HISTORY: leg swelling PRIORS: None. TECHNIQUE: Bilateral common femoral, femoral, popliteal and posterior tibial, peroneal and great saphenous veins were evaluated. Flow was assessed with color Doppler, compressibility, assessment of phasic flow and augmentation response. Report prepared by Lev Brown, DONYA, RVT FINDINGS: RIGHT: 1. Common Femoral Vein: 1.1. Compressibility - Fully compressible: Thrombus - None : Flow - Phasic: Augmentation -Normal: Reflux - None. 2. Femoral Vein: 2.1. Compressibility - Fully compressible: Thrombus - None : Flow - Phasic: Augmentation -Normal: Reflux - None. 3. Popliteal Vein: 3.1. Compressibility - Fully compressible: Thrombus - None : Flow - Phasic: Augmentation -Normal: Reflux - None. 4. Posterior Tibial Vein: 4.1. Compressibility - Fully compressible: Thrombus - None: Flow - Phasic: Augmentation -Normal: Reflux - None. 5. Peroneal Vein: 5.1. Compressibility - Fully compressible: Thrombus - None: Flow - Phasic: Augmentation -Normal: Reflux - None. 6. Great Saphenous Vein: 6.1. Compressibility - Fully compressible: Thrombus - None: Flow - Phasic: Augmentation - Normal: Reflux - None. LEFT: 1. Common Femoral Vein: 1.1. Compressibility - Fully compressible: Thrombus - None: Flow - Phasic: Augmentation -Normal: Reflux - None. 2. Femoral Vein: 2.1. Compressibility - Fully compressible: Thrombus - None: Flow - Phasic: Augmentation -Normal: Reflux - None. 3. Popliteal Vein: 3.1. Compressibility - Fully compressible: Thrombus - None : Flow - Phasic: Augmentation -Normal: Reflux - None. 4. Posterior Tibial Vein: 4.1. Compressibility - Fully compressible: Thrombus - None: Flow - Phasic: Augmentation -Normal: Reflux - None. 5. Peroneal Vein: 5.1. Compressibility - Fully compressible: Thrombus - None: Flow - Phasic: Augmentation -Normal: Reflux - Yes. 6. Great Saphenous Vein: 6.1. Compressibility - Fully compressible: Thrombus - None: Flow - Phasic: Augmentation - Normal: Reflux - None. OTHER FINDINGS: Right: None significant. Left: None significant. IMPRESSION: Right: No evidence of deep or superficial vein thrombosis of the right lower extremity. Normal valve function noted of the right side. Left: No evidence of deep or superficial vein thrombosis of the left lower extremity. 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
[2018-10-30] MEDS: Ranolazine 500 mg Extended Release Tablets PO SCH (18:50)
[2018-10-31] MEDS: Albuterol-Ipratrop 3 mg / 0.5 (3 ml) UD INH SCH ×4 (01:23→20:21)
[2018-10-31] MEDS: MethylPREDNISolone 40 mg Vial IVP SCH ×3 (01:39→22:08)
[2018-10-31] MEDS: Promethazine 6.25 MG/5 ML CUP PO PRN ×2 (01:39→13:26)
--- NOTE | 2018-10-31 01:57 | PN ---
DATE: 10/30/2018 SUBJECTIVE: The patient is seen and examined at bedside. The patient is still complaining of dyspnea on exertion and wheezing. Complaining of lower extremity worsening swelling. Denies any fever. Complaining of dry cough. PHYSICAL EXAMINATION: GENERAL: Middle-aged male lying in bed, in no acute distress. VITAL SIGNS: Blood pressure 126/75, pulse 100, respirations 20, temperature 97.2 degrees Fahrenheit, O2 sat 95% on room air. HEENT: Pupils are equal, round, and reacting to light and accommodation. Extraocular muscles intact. No icterus. No pallor. No oral thrush. No pharyngeal congestion. NECK: Supple. No JVD. LUNGS: Bilateral vesicular breath sounds. Bilateral coarse wheezing heard. Bilateral basal crackles heard. CARDIOVASCULAR SYSTEM: S1 and S2 present. Regular. ABDOMEN: Soft, nontender. Bowel sounds present. No guarding. No rigidity. No rebound tenderness noted. CENTRAL NERVOUS SYSTEM: Alert, awake, and oriented x3. No focal deficits noted. EXTREMITIES: 1+ edema present. Palpable peripheral pulses. MEDICATIONS: Include DuoNeb 3 mL every 6 hours, Augmentin 875 mg p.o. every 12 hours, Ecotrin 81 mg daily, Plavix 75 mg daily, Lovenox 40 mg subcu daily, Pepcid 20 mg daily, Lasix 40 mg IV every 12 hours, Neurontin 400 mg p.o. at bedtime, Cozaar 100 mg daily, Glucophage 850 mg p.o. b.i.d., Solu-Medrol 40 mg IV push every 8 hours, Toprol-XL 50 mg daily, Singulair 10 mg daily, Phenergan 6.25 mg p.o. every 6 hours p.r.n., Ranexa 500 mg p.o. b.i.d., Crestor 20 mg p.o. at bedtime, Januvia 100 mg daily. LABORATORY DATA: Accu-Cheks 337, 355, 275, 323, and 372. Lower extremity Doppler, no evidence of DVT in both lower extremities. ASSESSMENT AND PLAN: This is a middle-aged male with history of coronary artery disease, congestive heart failure, ischemic cardiomyopathy, status post stent placement, hypertension, hyperlipidemia, uncontrolled diabetes mellitus, admitted for congestive heart failure exacerbation, chronic obstructive pulmonary disease exacerbation, acute bronchitis with persistent shortness of breath. We will continue with nebulizer treatment, Solu-Medrol. We will add Augmentin and Singulair. Accu-Cheks are high. We will monitor sugars closely. We will decrease Solu-Medrol dose in the morning. We will continue with other cardiac medications, increase Lasix to 40 mg intravenous every 12 hours. We will repeat laboratories in the morning. Continue with other current therapy. We will follow up with Cardiology. Brock Anne MD
[2018-10-31 07:17] LABS: HEMOGLOBIN 9.8 g/dL (12.0-18.0); LYMPH # 0.4 K/uL (1.0-4.3); LYMPH % 3.6 % (20.0-40.0); MEAN CELL VOLUME 80.5 fL (80.0-94.0); MEAN CORPUSCULAR HGB CONC 33.6 g/dL (33.0-37.0); MEAN PLATELET VOLUME 8.4 fL (7.2-11.7); MONO # 0.4 K/uL (0.0-0.8); MONO % 3.2 % (0.0-10.0); NEUT # 11.1 K/uL (1.8-7.0); NEUT % 93.2 % (50.0-75.0); NRBC % 0.1 % (0.0-2.0); PLATELET COUNT 225 K/uL (130-400); RBC 3.61 Mil/uL (4.40-5.90); RED CELL DISTRIBUTION WIDTH 14.2 % (11.5-14.5)
[2018-10-31 07:21] LABS: WHITE BLOOD COUNT 11.9 K/uL (4.8-10.8)
[2018-10-31 08:06] LABS: ALB/GLOB RATIO 1.2 (1.0-2.1); ALBUMIN 3.5 g/dL (3.5-5.0); ALT/SGPT 34 U/L (21-72); AST/SGOT 20 U/L (17-59); BLOOD UREA NITROGEN 37 mg/dL (9-20); CALCIUM 8.9 mg/dl (8.6-10.4); GFR NON-AFRICAN AMERICAN > 60
[2018-10-31 09:12] LABS: ANISOCYTOSIS SLIGHT; LARGE PLATELETS PRESENT; LYMPHOCYTE 3 % (20-40); MONOCYTE 5 % (0-10); NEUTROPHIL 92 % (50-75); PLATELET ESTIMATE NORMAL (NORMAL); TOTAL CELLS COUNTED 100
[2018-10-31 09:13] LABS: HYPOCHROMIC SLIGHT; MICROCYTOSIS SLIGHT; POLYCHROMIC SLIGHT
[2018-10-31] MEDS: Amoxicillin-Clav 875-125 mg Tab PO SCH ×2 (10:08→22:09)
[2018-10-31] MEDS: Metoprolol Succinate 50 mg XL Tab PO SCH (10:09)
[2018-10-31] MEDS: Ranolazine 500 mg Extended Release Tablets PO SCH ×2 (10:09→18:56)
[2018-10-31] MEDS: Enoxaparin 40 mg Syringe SC SCH (10:09)
[2018-10-31] MEDS ORDERED: MethylPREDNISolone 40 mg Vial IVP SCH ×2 (12:00→22:00)
[2018-10-31] MEDS: (Novolin R) Insulin Human Regular 100 units/ml vial SC SCH ×3 (12:34→22:13)
--- NOTE | 2018-10-31 15:57 | CP.PCM.PN ---
Subjective - Date & Time of Evaluation Date of Evaluation: 10/31/18 Time of Evaluation: 15:57 - Subjective Subjective: Progress note dictated #[id number] Objective - Vital Signs/Intake and Output Vital Signs (last 24 hours): Temp Pulse Resp BP Pulse Ox 97.5 F L 96 H 20 128/78 98 10/31/18 08:04 10/31/18 12:35 10/31/18 08:04 10/31/18 10:09 10/31/18 08:04 Intake and Output: 10/31/18 10/31/18 06:59 18:59 Intake Total 240 800 Balance 240 800 - Medications Medications: Current Medications Albuterol/Ipratropium (Duoneb 3 Mg/0.5 Mg (3 Ml) Ud) 3 ml INH RQ6 [facility] Last Admin: 10/31/18 15:04 Dose: Not Given Albuterol/Ipratropium (Combivent Respimat) 1 puff INH RQ12 PRN PRN Reason: WHEEZING Amoxicillin/Clavulanate Potassium (Augmentin 875 Mg-125 Mg Tab) 1 tab PO Q12H [facility]; Protocol Last Admin: 10/31/18 10:08 Dose: 1 tab Aspirin (Ecotrin) 81 mg PO DAILY [facility] Last Admin: 10/31/18 10:09 Dose: 81 mg Clopidogrel Bisulfate (Plavix) 75 mg PO DAILY [facility] Last Admin: 10/31/18 10:09 Dose: 75 mg Enoxaparin Sodium (Lovenox) 40 mg SC DAILY [facility] Last Admin: 10/31/18 10:09 Dose: 40 mg Famotidine (Pepcid) 20 mg PO DAILY [facility] Last Admin: 10/31/18 10:09 Dose: 20 mg Furosemide (Lasix) 40 mg IVP Q12 [facility] Last Admin: 10/31/18 10:09 Dose: 40 mg Gabapentin (Neurontin) 400 mg PO HS [facility] Last Admin: 10/30/18 22:28 Dose: 400 mg Insulin Human Regular (Novolin R) 0 unit SC [facility]; Protocol Last Admin: 10/31/18 12:34 Dose: 6 units Losartan Potassium (Cozaar) 100 mg PO DAILY [facility] Last Admin: 10/31/18 10:09 Dose: 100 mg Metformin HCl (Glucophage) 850 mg PO BID [facility] Last Admin: 10/31/18 13:24 Dose: 850 mg Methylprednisolone (Solu-Medrol) 40 mg IVP Q12H [facility] Metoprolol Succinate (Toprol Xl) 50 mg PO DAILY [facility] Last Admin: 10/31/18 10:09 Dose: 50 mg Montelukast Sodium (Singulair) 10 mg PO DAILY [facility] Last Admin: 10/31/18 10:09 Dose: 10 mg Promethazine HCl (Phenergan Syrup) 6.25 mg PO Q6H PRN PRN Reason: Cough Last Admin: 10/31/18 13:26 Dose: 6.25 mg Ranolazine (Ranexa) 500 mg PO BID [facility] Last Admin: 10/31/18 10:09 Dose: 500 mg Rosuvastatin Calcium (Crestor) 20 mg PO HS [facility] Last Admin: 10/30/18 22:28 Dose: 20 mg Sitagliptin Phosphate (Januvia) 100 mg PO DAILY [facility] Last Admin: 10/31/18 10:09 Dose: 100 mg - Labs Labs: 10/31/18 07:07 10/31/18 07:07
[2018-10-31] MEDS ORDERED: (Novolin R) Insulin Human Regular 100 units/ml vial SC SCH (16:30)
[2018-10-31] MEDS ORDERED: (Novolin R) Insulin Human Regular 100 units/ml vial SC ONE ×2 (16:30→21:30)
[2018-10-31] MEDS: (Novolog Mix 70/30) Insulin Aspart/Insulin Aspar 100 units/ml SC SCH (19:35)
--- NOTE | 2018-10-31 23:29 | PN ---
DATE: 10/31/2018 SUBJECTIVE: The patient is seen and examined at bedside. The patient is feeling slightly better. Wheezing is better. Denies any shortness of breath. PHYSICAL EXAMINATION: GENERAL: Middle-aged male, lying in bed, in no acute distress. VITAL SIGNS: Blood pressure is 128/78, pulse 96, respirations 20, temperature 98 degree Fahrenheit, O2 sat is 96% on 2 L nasal canula. HEENT: Pupils equal, round, and reacting to light and accommodation. Extraocular muscles intact. No icterus. Positive pallor. No oral thrush. No pharyngeal congestion. NECK: Supple. No JVD. LUNGS: Bilateral vesicular breath sounds. No wheezing. Decreased wheezing. Decreased basal crackles. CARDIOVASCULAR SYSTEM: S1 and S2 present, regular. ABDOMEN: Soft. Nontender. Bowel sounds present. No guarding. No rigidity. No rebound tenderness noted. CENTRAL NERVOUS SYSTEM: Alert, awake, oriented x3. No focal deficits noted. EXTREMITIES: No edema. Palpable peripheral pulses. MEDICATIONS: Include DuoNeb 3 mL every 6 hours, Combivent, Augmentin 875 mg p.o. every 12 hours, aspirin 81 mg daily, Plavix 75 mg daily, Lovenox 40 mg subcu daily, Pepcid 20 mg daily, Lasix 40 mg IV push every 12 hours, Neurontin 400 mg p.o. at bedtime, 70/30 insulin 18 units subcu b.i.d., Cozaar 100 mg daily, metformin 850 mg p.o. b.i.d., Solu-Medrol 40 mg IV push every 12 hours, Toprol-XL 50 mg daily, Singulair 10 mg daily, Phenergan cough syrup, ranolazine 500 mg b.i.d, Crestor 20 mg p.o. at bedtime, Januvia 100 mg daily. LABORATORY DATA: Labs from this morning: WBC 11.9, hemoglobin 9.8, hematocrit 29.1, platelets 225. Sodium 131, potassium 4.9, chloride 94, bicarb 26, BUN 37, creatinine 0.9, glucose 347, calcium 8.9. Total bilirubin 0.5. Other LFTs within normal limits. ASSESSMENT AND PLAN: Middle-aged male with history of coronary artery disease, congestive heart failure, ischemic cardiomyopathy, status post stent placement, chronic obstructive pulmonary disease, hypertension, hyperlipidemia, diabetes mellitus. Admitted for congestive heart failure exacerbation, chronic obstructive pulmonary disease exacerbation. Symptoms improved on increasing doses of Lasix and on Solu-Medrol, nebulizer treatments. Empiric antibiotics for bronchitis. His white count is slightly elevated probably secondary to steroids, and sodium is slightly low at 131. We will continue with current medications. We will decrease Solu-Medrol to 20 mg IV every 12 hours. Repeat labs in the morning. Continue with other current medications. Follow up with Cardiology. If the patient is cleared by Cardiology, we will plan discharging the patient home in the morning. Brock Anne MD
[2018-11-01] MEDS: Albuterol-Ipratrop 3 mg / 0.5 (3 ml) UD INH SCH ×4 (01:31→19:48)
[2018-11-01] MEDS: (Novolog Mix 70/30) Insulin Aspart/Insulin Aspar 100 units/ml SC SCH ×2 (08:29→17:01)
[2018-11-01] MEDS: (Novolin R) Insulin Human Regular 100 units/ml vial SC SCH ×4 (08:29→21:37)
[2018-11-01 09:16] LABS: BASO % 0.1 % (0.0-2.0); HEMOGLOBIN 10.3 g/dL (12.0-18.0); LYMPH # 0.7 K/uL (1.0-4.3); LYMPH % 5.3 % (20.0-40.0); MEAN CELL VOLUME 81.7 fL (80.0-94.0); MEAN CORPUSCULAR HEMOGLOBIN 26.5 pg (27.0-31.0); MEAN CORPUSCULAR HGB CONC 32.5 g/dL (33.0-37.0); MONO # 0.7 K/uL (0.0-0.8); MONO % 5.4 % (0.0-10.0); NEUT # 12.1 K/uL (1.8-7.0); NEUT % 89.2 % (50.0-75.0); PLATELET COUNT 228 K/uL (130-400); RBC 3.87 Mil/uL (4.40-5.90); RED CELL DISTRIBUTION WIDTH 14.6 % (11.5-14.5); WHITE BLOOD COUNT 13.6 K/uL (4.8-10.8)
[2018-11-01] MEDS ORDERED: (Novolog) Insulin Aspart, Recombinant 100 u/ml 10 ml vial SC SCH (10:00)
[2018-11-01 10:05] LABS: BLOOD UREA NITROGEN 49 mg/dL (9-20); CALCIUM 8.7 mg/dl (8.6-10.4); GFR NON-AFRICAN AMERICAN > 60
[2018-11-01] MEDS: Ranolazine 500 mg Extended Release Tablets PO SCH ×2 (10:53→17:01)
[2018-11-01] MEDS: Enoxaparin 40 mg Syringe SC SCH (10:54)
[2018-11-01] MEDS: Metoprolol Succinate 50 mg XL Tab PO SCH (10:55)
[2018-11-01] MEDS: MethylPREDNISolone 40 mg Vial IVP SCH ×2 (10:55→21:36)
[2018-11-01] MEDS: Amoxicillin-Clav 875-125 mg Tab PO SCH ×2 (10:57→21:36)
[2018-11-01] MEDS: Promethazine 6.25 MG/5 ML CUP PO PRN (10:58)
[2018-11-01 11:00] LABS: BANDS 1 % (0-2); LYMPHOCYTE 4 % (20-40); MONOCYTE 4 % (0-10); NEUTROPHIL 91 % (50-75); PLATELET ESTIMATE NORMAL (NORMAL); TOTAL CELLS COUNTED 100
[2018-11-01 11:01] LABS: ANISOCYTOSIS SLIGHT; HYPOCHROMIC SLIGHT; LARGE PLATELETS PRESENT
[2018-11-01 11:02] LABS: MICROCYTOSIS SLIGHT; POLYCHROMIC SLIGHT
--- NOTE | 2018-11-01 15:57 | CP.PCM.PN ---
Subjective - Date & Time of Evaluation Date of Evaluation: 11/01/18 Time of Evaluation: 15:57 - Subjective Subjective: Progress note dictated #[id number] Objective - Vital Signs/Intake and Output Vital Signs (last 24 hours): Temp Pulse Resp BP Pulse Ox 97.6 F 90 18 133/82 99 11/01/18 15:00 11/01/18 15:00 11/01/18 15:00 11/01/18 15:00 11/01/18 15:00 Intake and Output: 11/01/18 11/01/18 06:59 18:59 Intake Total 800 Balance 800 - Medications Medications: Current Medications Albuterol/Ipratropium (Duoneb 3 Mg/0.5 Mg (3 Ml) Ud) 3 ml INH RQ6 [facility] Last Admin: 11/01/18 13:40 Dose: 3 ml Albuterol/Ipratropium (Combivent Respimat) 1 puff INH RQ12 PRN PRN Reason: WHEEZING Amoxicillin/Clavulanate Potassium (Augmentin 875 Mg-125 Mg Tab) 1 tab PO Q12H [facility]; Protocol Last Admin: 11/01/18 10:57 Dose: 1 tab Aspirin (Ecotrin) 81 mg PO DAILY [facility] Last Admin: 11/01/18 10:53 Dose: 81 mg Clopidogrel Bisulfate (Plavix) 75 mg PO DAILY [facility] Last Admin: 11/01/18 10:54 Dose: 75 mg Enoxaparin Sodium (Lovenox) 40 mg SC DAILY [facility] Last Admin: 11/01/18 10:54 Dose: 40 mg Famotidine (Pepcid) 20 mg PO DAILY [facility] Last Admin: 11/01/18 10:54 Dose: 20 mg Furosemide (Lasix) 40 mg IVP Q12 [facility] Last Admin: 11/01/18 10:54 Dose: 40 mg Gabapentin (Neurontin) 400 mg PO HS [facility] Last Admin: 10/31/18 22:09 Dose: 400 mg Insulin Aspart (Novolog Mix 70/30 (70/30 Units/Ml)) 18 units SC BIDAC [facility] Last Admin: 11/01/18 08:29 Dose: 18 units Insulin Human Regular (Novolin R) 0 unit SC ACHS [facility]; Protocol Last Admin: 11/01/18 11:26 Dose: 4 units Losartan Potassium (Cozaar) 100 mg PO DAILY [facility] Last Admin: 11/01/18 11:06 Dose: 100 mg Metformin HCl (Glucophage) 850 mg PO BID [facility] Last Admin: 11/01/18 10:54 Dose: 850 mg Methylprednisolone (Solu-Medrol) 20 mg IVP Q12H [facility] Last Admin: 11/01/18 10:55 Dose: 20 mg Metoprolol Succinate (Toprol Xl) 50 mg PO DAILY [facility] Last Admin: 11/01/18 10:55 Dose: 50 mg Montelukast Sodium (Singulair) 10 mg PO DAILY [facility] Last Admin: 11/01/18 14:00 Dose: 10 mg Promethazine HCl (Phenergan Syrup) 6.25 mg PO Q6H PRN PRN Reason: Cough Last Admin: 11/01/18 10:58 Dose: 6.25 mg Ranolazine (Ranexa) 500 mg PO BID [facility] Last Admin: 11/01/18 10:53 Dose: 500 mg Rosuvastatin Calcium (Crestor) 20 mg PO HS [facility] Last Admin: 10/31/18 22:09 Dose: 20 mg Sitagliptin Phosphate (Januvia) 100 mg PO DAILY [facility] Last Admin: 11/01/18 10:53 Dose: 100 mg - Labs Labs: 11/01/18 09:08 11/01/18 09:08
[2018-11-01 17:38] VITALS: RESP 20
--- NOTE | 2018-11-02 01:46 | PN ---
DATE: 11/01/2018 SUBJECTIVE: The patient is seen and examined at bedside. The patient is complaining of cough. Denies any other new complaints. PHYSICAL EXAMINATION: GENERAL: Middle-aged male, lying in bed, in no acute distress. VITAL SIGNS: Blood pressure 121/77, pulse 84, respirations 20, temperature 97.7 degrees Fahrenheit, O2 sat 98% on room air. HEENT: Pupils equal, round, and reacting to light and accommodation. Extraocular muscles intact. No icterus. No pallor. No oral thrush. No pharyngeal congestion. NECK: Supple. No JVD. LUNGS: Bilateral vesicular breath sounds. Bilateral occasional wheezing heard. Bilateral basal crackles heard. CARDIOVASCULAR SYSTEM: S1 and S2 present. Regular. ABDOMEN: Soft and nontender. Bowel sounds are present. No guarding. No rigidity. No rebound tenderness noted. CENTRAL NERVOUS SYSTEM: Alert, awake, and oriented x3. No focal deficits noted. EXTREMITIES: Trace edema. Palpable peripheral pulses. MEDICATIONS: Singulair, DuoNeb , Augmentin, Ecotrin 81 mg daily, Plavix 75 mg daily, Lovenox 40 mg daily, Pepcid 20 mg daily, Lasix 40 mg IV push every 12 hours, Neurontin 400 mg p.o. at bedtime, insulin 70/30 18 units subcu b.i.d., Cozaar 100 mg daily, metformin 850 mg p.o. b.i.d., Solu-Medrol 20 mg IV push every 12 hours, Toprol-XL 50 mg daily, Singulair 10 mg daily, Phenergan cough syrup as needed, Ranexa, Crestor 20 mg p.o. at bedtime, Januvia 100 mg daily. LABORATORY DATA: Labs from this morning; WBC 13.6, hemoglobin 10.3, hematocrit 31.6, and platelets 228. Sodium 131, potassium 4.4, chloride 95, bicarb 29, BUN 49, creatinine 1.1, glucose 322, calcium 8.7. ASSESSMENT AND PLAN: A middle-aged male with history of hypertension, diabetes mellitus, coronary artery disease, congestive heart failure, cardiomyopathy, status post stent placement; admitted for chronic obstructive pulmonary disease exacerbation, congestive heart failure exacerbation, persistent cough, Solu-Medrol decreased yesterday. We will follow up with Cardiology. If cleared by Cardiology, we will plan discharging the patient home in a.m. Brock Anne MD
[2018-11-02] MEDS: Albuterol-Ipratrop 3 mg / 0.5 (3 ml) UD INH SCH ×2 (02:51→08:48)
--- NOTE | 2018-11-02 08:17 | CP.PCM.PN ---
Subjective - Date & Time of Evaluation Date of Evaluation: 11/02/18 Time of Evaluation: 06:35 - Subjective Subjective: Pt seen and examined at bedside. Pt denies chest pain or SOB Objective - Vital Signs/Intake and Output Vital Signs (last 24 hours): Temp Pulse Resp BP Pulse Ox 97.6 F 101 H 20 125/81 95 11/02/18 00:00 11/02/18 01:00 11/02/18 00:00 11/02/18 00:00 11/02/18 00:00 Intake and Output: 11/02/18 11/02/18 06:59 18:59 Intake Total 1400 Output Total 1200 Balance 200 - Medications Medications: Current Medications Albuterol/Ipratropium (Duoneb 3 Mg/0.5 Mg (3 Ml) Ud) 3 ml INH RQ6 [facility] Last Admin: 11/02/18 02:51 Dose: 3 ml Albuterol/Ipratropium (Combivent Respimat) 1 puff INH RQ12 PRN PRN Reason: WHEEZING Amoxicillin/Clavulanate Potassium (Augmentin 875 Mg-125 Mg Tab) 1 tab PO Q12H [facility]; Protocol Last Admin: 11/01/18 21:36 Dose: 1 tab Aspirin (Ecotrin) 81 mg PO DAILY [facility] Last Admin: 11/01/18 10:53 Dose: 81 mg Clopidogrel Bisulfate (Plavix) 75 mg PO DAILY [facility] Last Admin: 11/01/18 10:54 Dose: 75 mg Enoxaparin Sodium (Lovenox) 40 mg SC DAILY [facility] Last Admin: 11/01/18 10:54 Dose: 40 mg Famotidine (Pepcid) 20 mg PO DAILY [facility] Last Admin: 11/01/18 10:54 Dose: 20 mg Furosemide (Lasix) 40 mg IVP Q12 [facility] Last Admin: 11/01/18 21:37 Dose: 40 mg Gabapentin (Neurontin) 400 mg PO HS [facility] Last Admin: 11/01/18 21:36 Dose: 400 mg Insulin Aspart (Novolog Mix 70/30 (70/30 Units/Ml)) 18 units SC BIDAC [facility] Last Admin: 11/01/18 17:01 Dose: 18 units Insulin Human Regular (Novolin R) 0 unit SC ACHS [facility]; Protocol Last Admin: 11/01/18 21:37 Dose: Not Given Losartan Potassium (Cozaar) 100 mg PO DAILY [facility] Last Admin: 11/01/18 11:06 Dose: 100 mg Metformin HCl (Glucophage) 850 mg PO BID [facility] Last Admin: 11/01/18 17:01 Dose: 850 mg Methylprednisolone (Solu-Medrol) 20 mg IVP Q12H [facility] Last Admin: 11/01/18 21:36 Dose: 20 mg Metoprolol Succinate (Toprol Xl) 50 mg PO DAILY [facility] Last Admin: 11/01/18 10:55 Dose: 50 mg Montelukast Sodium (Singulair) 10 mg PO DAILY [facility] Last Admin: 11/01/18 14:00 Dose: 10 mg Promethazine HCl (Phenergan Syrup) 6.25 mg PO Q6H PRN PRN Reason: Cough Last Admin: 11/01/18 10:58 Dose: 6.25 mg Ranolazine (Ranexa) 500 mg PO BID [facility] Last Admin: 11/01/18 17:01 Dose: 500 mg Rosuvastatin Calcium (Crestor) 20 mg PO HS [facility] Last Admin: 11/01/18 21:36 Dose: 20 mg Sitagliptin Phosphate (Januvia) 100 mg PO DAILY [facility] Last Admin: 11/01/18 10:53 Dose: 100 mg - Labs Labs: 11/01/18 09:08 11/01/18 09:08 - Constitutional Appears: No Acute Distress - Head Exam Head Exam: ATRAUMATIC, NORMOCEPHALIC - Eye Exam Eye Exam: EOMI - ENT Exam ENT Exam: Mucous Membranes Moist - Neck Exam Neck Exam: Full ROM - Respiratory Exam Respiratory Exam: Clear to Ausculation Bilateral, NORMAL BREATHING PATTERN. absent: Accessory Muscle Use, Respiratory Distress - Cardiovascular Exam Cardiovascular Exam: RRR, +S1, +S2. absent: Diastolic murmur - GI/Abdominal Exam GI & Abdominal Exam: Soft, Normal Bowel Sounds. absent: Tenderness - Extremities Exam Extremities Exam: Full ROM, Pedal Edema. absent: Calf Tenderness - Neurological Exam Neurological Exam: Alert, Awake, Oriented x3 - Psychiatric Exam Psychiatric exam: Normal Affect, Normal Mood - Skin Skin Exam: Dry, Normal Color, Warm Assessment and Plan - Assessment and Plan (Free Text) Assessment: CHF exacerbation CAD with stent Tobacco abuse HTN DM HLD Plan: CHF exacerbation Tobacco abuse Trop 10/28 negative x3 BNP 3160 HA1C 7.2 EKG 10/28/[address], [address] or T wave abnormalities ECHO follow up continue lasix have pt follow up as out pt after discharge Medications duonebs ASA Plavix Lasix 40 IVP q12 cozaar metoprolol Januvia crestor ranexa Pt seen, examined, assessment and plan discussed with Dr Rickey Anderson PGY1, Internal Medicine Resident
[2018-11-02 08:18] VITALS: TEMP 97.5; O2SAT 94
[2018-11-02] MEDS: (Novolog Mix 70/30) Insulin Aspart/Insulin Aspar 100 units/ml SC SCH (08:30)
[2018-11-02] MEDS: (Novolin R) Insulin Human Regular 100 units/ml vial SC SCH ×2 (08:30→12:45)
--- NOTE | 2018-11-02 09:45 | CP.PCM.PN ---
Subjective - Date & Time of Evaluation Date of Evaluation: 11/02/18 Time of Evaluation: 09:45 - Subjective Subjective: Discharge summary dictated #[id number] Objective - Vital Signs/Intake and Output Vital Signs (last 24 hours): Temp Pulse Resp BP Pulse Ox 97.5 F L 82 20 109/66 94 L 11/02/18 08:00 11/02/18 08:00 11/02/18 08:00 11/02/18 08:00 11/02/18 08:00 Intake and Output: 11/02/18 11/02/18 06:59 18:59 Intake Total 1400 Output Total 1200 Balance 200 - Medications Medications: Current Medications Albuterol/Ipratropium (Duoneb 3 Mg/0.5 Mg (3 Ml) Ud) 3 ml INH RQ6 [facility] Last Admin: 11/02/18 08:48 Dose: 3 ml Albuterol/Ipratropium (Combivent Respimat) 1 puff INH RQ12 PRN PRN Reason: WHEEZING Amoxicillin/Clavulanate Potassium (Augmentin 875 Mg-125 Mg Tab) 1 tab PO Q12H [facility]; Protocol Last Admin: 11/01/18 21:36 Dose: 1 tab Aspirin (Ecotrin) 81 mg PO DAILY [facility] Last Admin: 11/01/18 10:53 Dose: 81 mg Clopidogrel Bisulfate (Plavix) 75 mg PO DAILY [facility] Last Admin: 11/01/18 10:54 Dose: 75 mg Enoxaparin Sodium (Lovenox) 40 mg SC DAILY [facility] Last Admin: 11/01/18 10:54 Dose: 40 mg Famotidine (Pepcid) 20 mg PO DAILY [facility] Last Admin: 11/01/18 10:54 Dose: 20 mg Furosemide (Lasix) 40 mg IVP Q12 [facility] Last Admin: 11/01/18 21:37 Dose: 40 mg Gabapentin (Neurontin) 400 mg PO HS [facility] Last Admin: 11/01/18 21:36 Dose: 400 mg Insulin Aspart (Novolog Mix 70/30 (70/30 Units/Ml)) 18 units SC BIDAC [facility] Last Admin: 11/01/18 17:01 Dose: 18 units Insulin Human Regular (Novolin R) 0 unit SC ACHS [facility]; Protocol Last Admin: 11/01/18 21:37 Dose: Not Given Losartan Potassium (Cozaar) 100 mg PO DAILY [facility] Last Admin: 11/01/18 11:06 Dose: 100 mg Metformin HCl (Glucophage) 850 mg PO BID [facility] Last Admin: 11/01/18 17:01 Dose: 850 mg Methylprednisolone (Solu-Medrol) 20 mg IVP Q12H [facility] Last Admin: 11/01/18 21:36 Dose: 20 mg Metoprolol Succinate (Toprol Xl) 50 mg PO DAILY [facility] Last Admin: 11/01/18 10:55 Dose: 50 mg Montelukast Sodium (Singulair) 10 mg PO DAILY [facility] Last Admin: 11/01/18 14:00 Dose: 10 mg Promethazine HCl (Phenergan Syrup) 6.25 mg PO Q6H PRN PRN Reason: Cough Last Admin: 11/01/18 10:58 Dose: 6.25 mg Ranolazine (Ranexa) 500 mg PO BID [facility] Last Admin: 11/01/18 17:01 Dose: 500 mg Rosuvastatin Calcium (Crestor) 20 mg PO HS [facility] Last Admin: 11/01/18 21:36 Dose: 20 mg Sitagliptin Phosphate (Januvia) 100 mg PO DAILY [facility] Last Admin: 11/01/18 10:53 Dose: 100 mg - Labs Labs: 11/01/18 09:08 11/01/18 09:08
[2018-11-02] MEDS: Metoprolol Succinate 50 mg XL Tab PO SCH (10:01)
[2018-11-02] MEDS: MethylPREDNISolone 40 mg Vial IVP SCH (10:01)
[2018-11-02] MEDS: Ranolazine 500 mg Extended Release Tablets PO SCH (10:01)
[2018-11-02 10:03] VITALS: BP 111/67
[2018-11-02] MEDS: Enoxaparin 40 mg Syringe SC SCH (10:03)
[2018-11-02] MEDS: Promethazine 6.25 MG/5 ML CUP PO PRN (10:05)
[2018-11-02 14:47] VITALS: PULSE 86
--- NOTE | 2018-11-03 14:49 | DS ---
DISCHARGE DIAGNOSES: Congestive heart failure exacerbation, chronic obstructive pulmonary disease exacerbation, bronchitis, hypertension, hyperlipidemia, diabetes mellitus, coronary artery disease, ischemic cardiomyopathy, status post stent placement. HISTORY OF PRESENT ILLNESS: Mr. Schultz is a 63-year-old male with past medical history of hypertension, hyperlipidemia, diabetes mellitus, CAD, CHF, cardiomyopathy, status post stent placement, who has been following up with Dr. Riaz Orosco, his primary care physician and Dr. Lang, his cloth neutralizer, admitted for dyspnea on exertion and chest pain. Today, the patient is feeling much better. Denies any headache or dizziness. Denies any chest pain, shortness of breath, or wheezing. Denies any nausea, vomiting, abdominal pain, diarrhea, or constipation. Denies any urinary complaints. Denies any leg pains or leg cramps. Denies any other neurologic symptoms. All other systems reviewed and were found to be negative. PHYSICAL EXAMINATION: GENERAL: A middle-aged male lying in bed in no acute distress. VITAL SIGNS: Blood pressure 111/67, pulse 86, respirations 20, temperature 97.5 degrees Fahrenheit, O2 sat 95% on room air. HEENT: Pupils equal, round, reacting to light and accommodation. Extraocular muscles intact. No icterus. No pallor. No oral thrush. No pharyngeal congestion. NECK: Supple. No JVD. LUNGS: Bilateral vesicular breath sounds. No wheezing. No rhonchi. CVS: S1, S2 present, regular. ABDOMEN: Soft, nontender. Bowel sounds present. No guarding. No rigidity. No rebound tenderness noted. PRODUCTION FINISHER: Alert, awake, oriented x3. No focal deficits noted. EXTREMITIES: Trace pedal edema. Palpable peripheral pulses. LABORATORY DATA: Labs done from 11/01/2018, WBC 13.6, hemoglobin 10.3, hematocrit 31.6, platelets 228. Sodium 131, potassium 4.4, chloride 95, bicarb 29, BUN 49, creatinine 1.1, glucose 322, calcium 8.7. Cardiac enzymes x3 negative. Hemoglobin A1c 7.2. Triglycerides 95, cholesterol 178, LDL 108, HDL 45. Chest x-ray consistent with congestive heart failure. HOSPITAL COURSE: The patient was admitted to the hospital for CHF exacerbation. The patient was started on IV Lasix. The patient developed acute wheezing with cough. The patient was given nebulizer treatments, started on empiric p.o. antibiotics, steroids with which his symptoms improved. The patient was evaluated by Cardiology. Acute coronary syndrome ruled out by negative cardiac enzymes. No new acute EKG changes. The patient had echocardiogram done recently which was consistent with EF of 25% to 30%. After IV Lasix, the patient's symptoms improved and the patient is cleared by Cardiology. Advised the patient to be followed up as outpatient. The patient is otherwise hemodynamically stable for discharge and advised the patient to follow up with his PMD and Cardiology as outpatient. CONDITION UPON DISCHARGE: The patient is alert, awake, oriented x3 and hemodynamically stable at the time of discharge. DISCHARGE INSTRUCTIONS: Follow up with PMD, follow up with Cardiology, follow up with Pulmonary. DIET: Low-sodium, low-cholesterol 1800 calorie ADA diet. ACTIVITY: As tolerated. DISCHARGE MEDICATIONS: Include aspirin 81 mg daily, Plavix 75 mg daily, Combivent daily, Neurontin 400 mg p.o. h.s., Cozaar 100 mg daily, metformin 850 mg p.o. t.i.d., metoprolol 50 mg daily, Januvia 100 mg daily, DuoNeb as needed, Augmentin 875 mg p.o. b.i.d., Pepcid 20 mg b.i.d., Lasix 40 mg p.o. daily, Mucinex 600 mg daily, Medrol Dosepak as directed, Singulair 10 mg daily, Phenergan syrup 6.25 mg p.o. every 6 hours p.r.n., Ranexa 500 mg b.i.d., Crestor 20 mg p.o. h.s. Advised the patient to return to ED if any worsening of his symptoms. Brock Anne MD
== END 2018-11-02 13:26 | disposition home or self-care (01) | DRG 544 ==
LOC: C.ER 10:18 → C.5S 14:14
PROVIDERS: ADMIT Internal Medicine; ATTEND Internal Medicine
DX: I11.0 Hypertensive heart disease with heart failure (principal); I50.23 Acute on chronic systolic (congestive) heart failure; B20 Human immunodeficiency virus [HIV] disease; J44.1 Chronic obstructive pulmonary disease with (acute) exacerbation; E11.9 Type 2 diabetes mellitus without complications; I25.10 Atherosclerotic heart disease of native coronary artery without angina pectoris; I25.5 Ischemic cardiomyopathy; K21.9 Gastro-esophageal reflux disease without esophagitis; D72.829 Elevated white blood cell count, unspecified; T38.0X5A Adverse effect of glucocorticoids and synthetic analogues, initial encounter; M19.90 Unspecified osteoarthritis, unspecified site; E78.5 Hyperlipidemia, unspecified; E78.00 Pure hypercholesterolemia, unspecified; Z95.5 Presence of coronary angioplasty implant and graft; Z82.49 Family history of ischemic heart disease and other diseases of the circulatory system; Z83.3 Family history of diabetes mellitus

== ENCOUNTER 2018-11-19 15:00 | Inpatient (IN) | payer OTHER ==
[2018-11-19 15:07] VITALS: BMI 24.0
--- NOTE | 2018-11-19 15:19 | C.PDOC ---
History Of Present Illness 63 year old female brought in by ambulance to ED with worsening SOB for several days. Patient was instructed to come to the ED by her PMD, Dr. Gonzales. She has a PMHx of diabetes, hypertension, hyperlipidemia, CAD s/p stents, and CHF. She denies chest pain, palpitations, cough, fever, abdominal pain, nausea, vomiting, and diarrhea. Time Seen by Provider: 11/19/18 15:01 Chief Complaint (Nursing): Shortness Of Breath History Per: Patient, EMS History/Exam Limitations: no limitations Onset/Duration Of Symptoms: Days Current Symptoms Are (Timing): Still Present Associated Symptoms: denies: Fever, Chills, Chest Pain, Bloody Cough, Productive Cough Past Medical History Reviewed: Historical Data, Nursing Documentation, Vital Signs - Medical History PMH: Arthritis, Bronchitis, CAD, Diabetes, HIV (undetectable), HTN, Hypercholesterolemia Denies: Chronic Kidney Disease Surgical History: Coronary Stent (cardiac cath with stent placement) Denies: Pacemaker - [facility] Procedures DILATION OF 1 COR ART WITH DRUG-ELUT INTRA, PERC APPROACH (08/16/17) FLUOROSCOPY OF LEFT HEART USING LOW OSMOLAR CONTRAST (12/24/17) FLUOROSCOPY OF MULT COR ART USING L OSM CONTRAST (08/09/18) FLUOROSCOPY OF RIGHT AND LEFT HEART USING L OSM CONTRAST (08/09/18) MEASURE CARDIAC SAMPL & PRESSURE, BILATERAL, PERC (08/09/18) MEASURE OF CARDIAC SAMPL & PRESSURE, L HEART, PERC APPROACH (12/24/17) MEASUREMENT OF ARTERIAL PRESSURE, CORONARY, PERC APPROACH (08/16/17) ULTRASONOGRAPHY OF RIGHT AND LEFT HEART, TRANSESOPHAGEAL (09/10/16) Family History: States: Diabetes, Hypertension - Social History Hx Tobacco Use: Yes (1/2 pack daily) Hx Alcohol Use: Yes Hx Substance Use: Yes - Immunization History Hx Tetanus Toxoid Vaccination: No Hx Influenza Vaccination: No Hx Pneumococcal Vaccination: No Review Of Systems Constitutional: Negative for: Fever, Chills, Weakness Cardiovascular: Negative for: Chest Pain, Palpitations Respiratory: Positive for: Shortness of Breath. Negative for: Cough, Sputum Gastrointestinal: Negative for: Nausea, Vomiting, Abdominal Pain, Diarrhea Neurological: Negative for: Weakness, Numbness, Dizziness Physical Exam - Physical Exam Appears: Other (speaking full sentences, comfortable) Skin: Normal Color, Warm, Dry Head: Atraumatic, Normacephalic Neck: Normal ROM, Supple, Other (JVD present) Chest: Symmetrical, No Deformity Cardiovascular: Rhythm Regular, No Murmur Respiratory: No Accessory Muscle Use, Rales (at the bases bilaterally), No Rhonchi, No Wheezing Gastrointestinal/Abdominal: Soft, No Tenderness Extremity: Other (+2 pitting edema of the bilateral lower extremities) Neurological/Psych: Oriented x3, Normal Speech, Normal Cognition ED Course And Treatment - Laboratory Results Result Diagrams: 11/19/18 16:17 11/19/18 16:17 ECG: Interpreted By Me, Viewed By Me ECG Rhythm: Sinus Rhythm ECG Interpretation: No Acute Changes (unchanged from prior EKGS) Interpretation Of ECG: Left axis deviation. T-wave inversion at leads v1, v6, and avL. No acute ST-changes. Rate From EC - Radiology CXR: Interpreted by Me, Viewed By Me ((+) pulmonary vascular congestion, no infiltrates) Progress Note: EKG and CXR ordered for patient. Labs ordered with troponin, CBC, and prothrombin. Disposition - Disposition Forms: [employer] (Maltese) - Scribe Statement The provider has reviewed the documentation as recorded by the Scribe (Alona Mcadams) All medical record entries made by the Scribe were at my direction and personally dictated by me. I have reviewed the chart and agree that the record accurately reflects my personal performance of the history, physical exam, medical decision making, and the department course for this patient. I have also personally directed, reviewed, and agree with the discharge instructions and disposition.
--- NOTE | 2018-11-19 15:53 | RAD ---
Chest x-ray single frontal view HISTORY: Shortness of breath. COMPARISON: 10/28/2018 FINDINGS: Moderate venous congestion. Diffuse increased interstitial lung markings. Patchy bibasilar airspace opacities. Small right pleural effusion. Cardiomegaly. IMPRESSION: Moderate venous congestion. Diffuse increased interstitial lung markings. Patchy bibasilar airspace opacities. Small right pleural effusion. Cardiomegaly.
[2018-11-19 16:37] LABS: BASO % 0.4 % (0.0-2.0); EOS # 0.1 K/uL (0.0-0.7); EOS % 1.2 % (0.0-4.0); HEMOGLOBIN 10.7 g/dL (12.0-18.0); LYMPH # 0.9 K/uL (1.0-4.3); LYMPH % 15.4 % (20.0-40.0); MEAN CELL VOLUME 82.1 fL (80.0-94.0); MEAN CORPUSCULAR HEMOGLOBIN 26.6 pg (27.0-31.0); MEAN CORPUSCULAR HGB CONC 32.5 g/dL (33.0-37.0); MEAN PLATELET VOLUME 8.6 fL (7.2-11.7); MONO # 0.4 K/uL (0.0-0.8); MONO % 6.3 % (0.0-10.0); NEUT # 4.6 K/uL (1.8-7.0); NEUT % 76.7 % (50.0-75.0); RBC 4.02 Mil/uL (4.40-5.90); RED CELL DISTRIBUTION WIDTH 15.8 % (11.5-14.5)
[2018-11-19 16:39] LABS: PROTHROMBIN TIME 11.3 SECONDS (9.7-12.2)
[2018-11-19 16:53] LABS: ALB/GLOB RATIO 1.1 (1.0-2.1); ALBUMIN 3.5 g/dL (3.5-5.0); ALT/SGPT 46 U/L (21-72); AST/SGOT 24 U/L (17-59); BLOOD UREA NITROGEN 16 mg/dL (9-20); CALCIUM 8.9 mg/dl (8.6-10.4); GFR NON-AFRICAN AMERICAN > 60
[2018-11-19 16:54] LABS: B-TYPE NATRIURETIC PEPTIDE 3220 pg/mL (0-900); CK-MB 1.61 ng/mL (0.0-3.38)
--- NOTE | 2018-11-19 22:12 | CP.PCM.HP ---
Present on Admission - Present on Admission Any Indicators Present on Admission: No Past Patient History - Infectious Disease Hx of Infectious Diseases: None - Past Medical History & Family History Past Medical History?: Yes - Past Social History Smoking Status: Current Some Days Smoker - CARDIAC Hx Hypercholesterolemia: Yes Hx Hypertension: Yes Hx Pacemaker: No - PULMONARY Hx Bronchitis: Yes - NEUROLOGICAL Hx Neurological Disorder: No HX Cerebrovascular Accident: No - HEENT Hx HEENT Problems: No - RENAL Hx Chronic Kidney Disease: No - ENDOCRINE/METABOLIC Hx Endocrine Disorders: Yes Hx Diabetes Mellitus Type 2: Yes - HEMATOLOGICAL/ONCOLOGICAL Hx Human Immunodeficiency Virus (HIV): Yes (undetectable) - INTEGUMENTARY Hx Dermatological Problems: No - MUSCULOSKELETAL/RHEUMATOLOGICAL Hx Arthritis: Yes - GASTROINTESTINAL Hx Gastrointestinal Disorders: No - GENITOURINARY/GYNECOLOGICAL Hx Genitourinary Disorders: No - PSYCHIATRIC Hx Substance Use: Yes - SURGICAL HISTORY Hx Coronary Stent: Yes (cardiac cath with stent placement) - ANESTHESIA Hx Anesthesia: Yes Hx Anesthesia Reactions: No Hx Malignant Hyperthermia: No Meds Allergies/Adverse Reactions: Allergies Allergy/AdvReac Type Severity Reaction Status Date / Time No Known Allergies Allergy Verified 11/19/18 15:06 Results - Vital Signs Recent Vital Signs: Last Vital Signs Temp 97.7 F 11/19/18 18:43 Pulse 84 11/19/18 18:43 Resp 20 11/19/18 18:43 BP 136/87 11/19/18 18:43 Pulse Ox 98 11/19/18 18:43 - Labs Result Diagrams: 11/19/18 16:17 11/19/18 16:17 Labs: Laboratory Results - last 24 hr 11/19/18 11/19/18 11/19/18 16:17 16:17 16:17 WBC 6.0 D RBC 4.02 L Hgb 10.7 L Hct 33.0 L MCV 82.1 MCH 26.6 L MCHC 32.5 L RDW 15.8 H Plt Count 187 MPV 8.6 Neut % (Auto) 76.7 H Lymph % (Auto) 15.4 L [place] % (Auto) 6.3 Eos % (Auto) 1.2 Baso % (Auto) 0.4 Neut # (Auto) 4.6 Lymph # (Auto) 0.9 L [place] # (Auto) 0.4 Eos # (Auto) 0.1 Baso # (Auto) 0.0 PT 11.3 INR 1.0 APTT 32 Sodium 138 Potassium 3.9 Chloride 104 Carbon Dioxide 30 Anion Gap 8 L BUN 16 Creatinine 0.7 L Est GFR ( Amer) > 60 Est GFR (Non-Af Amer) > 60 POC Glucose (mg/dL) Random Glucose 122 H D Calcium 8.9 Total Bilirubin 0.6 AST 24 ALT 46 Alkaline Phosphatase 142 H Total Creatine Kinase 42 L CK-MB (Mass) 1.61 Troponin I 0.0140 NT-Pro-B Natriuret Pep 3220 H Total Protein 6.6 Albumin 3.5 Globulin 3.1 Albumin/Globulin Ratio 1.1 11/19/18 21:26 WBC RBC Hgb Hct MCV MCH MCHC RDW Plt Count MPV Neut % (Auto) Lymph % (Auto) [place] % (Auto) Eos % (Auto) Baso % (Auto) Neut # (Auto) Lymph # (Auto) [place] # (Auto) Eos # (Auto) Baso # (Auto) PT INR APTT Sodium Potassium Chloride Carbon Dioxide Anion Gap BUN Creatinine Est GFR ( Amer) Est GFR (Non-Af Amer) POC Glucose (mg/dL) 279 H Random Glucose Calcium Total Bilirubin AST ALT Alkaline Phosphatase Total Creatine Kinase CK-MB (Mass) Troponin I NT-Pro-B Natriuret Pep Total Protein Albumin Globulin Albumin/Globulin Ratio
[2018-11-19] MEDS: (Novolin R) Insulin Human Regular 100 units/ml vial SC SCH (23:06)
[2018-11-19 23:09] LABS: CK-MB 1.13 ng/mL (0.0-3.38); TROPONIN I 0.012 ng/mL (0.00-0.120)
--- NOTE | 2018-11-20 03:17 | HP ---
CHIEF COMPLAINT: Shortness of breath times one day. HISTORY OF PRESENT ILLNESS: This is a 63-year-old male, well known to me with a history of coronary artery disease, status post multiple stents, hypertension, hyperlipidemia. He is ex-smoker, non-EtOH user. He is compliant with his diet, medication, and followup. He has history of multiple hospitalization. He admitted. He came in because of dyspnea on exertion, orthopnea, and PND. According to him, he was doing well up until yesterday, and last night, he developed shortness of breath. His shortness of breath is persistent. It was exertional as well as at rest. Along with that, he had orthopnea. He denies any chest pain. He had palpitation with dizziness. The patient had nocturia. He denied any history of polyuria, polydipsia, polyphagia. He denied any history of dizziness, vertigo. He denied any history of joint pain, leg pain. He has tingling and numbness in the feet. There is no history of hematemesis, melena, or hematochezia. There is no history of skin rash, itchy eyes, itchy nose, and productive cough. PAST MEDICAL HISTORY: Coronary artery disease, status post stent, hypertension, hyperlipidemia, type 2 diabetes, on insulin, COPD. He is a chronic heavy smoker, and currently, he is a nonsmoker and using nicotine patch. HOME MEDICATIONS: The patient is on, 1. Metformin. 2. Losartan. 3. Plavix. 4. Aspirin. 5. Humalog 75/25 mix. 6. Simvastatin. 7. Gabapentin. 8. Combivent Respimat. 9. Nicotine. 10. Metoprolol succinate. 11. Nitroglycerin. 12. Furosemide. FAMILY HISTORY: Negative for premature coronary artery disease. PHYSICAL EXAMINATION: GENERAL: An elderly male, in respiratory distress. VITAL SIGNS: Blood pressure is 153/81, pulse 84, respiratory rate 15, temperature 97.7. SKIN: Senile turgor. No bruises. No purpura. No petechiae. No ecchymosis. HEENT: Atraumatic and normocephalic. Negative pallor. Negative jaundice. Extraocular movements are intact. NECK: Supple. Positive JVD. Negative lymph node. Negative thyromegaly. Negative carotid bruits. CHEST WALL: Bilateral symmetrical expansion. LUNGS: Bilateral crepitation. Decreased air entry. CARDIOVASCULAR SYSTEM: PMI in fifth intercostal space. No heave. No thrill. No S3; 2/6 ejection systolic murmur is present. RECTAL: No masses. No bleed. EXTREMITIES: +2 pitting edema. CENTRAL NERVOUS SYSTEM: Awake, alert, oriented x3. Cranial nerves II through XII are normal. Power 5/5 x4. ABDOMEN: Soft, nontender. Bowel sounds are positive. ASSESSMENT: 1. Acute exacerbation of congestive heart failure with acute on chronic systolic heart failure with no left ventricular ejection fraction. 2. Ischemic heart disease, status post multiple stents. 3. Hypertension. 4. Diabetes. PLAN: Admit. Detailed orders written. Seen and examined. Esau Gordillo MD
[2018-11-20] MEDS: (Novolin R) Insulin Human Regular 100 units/ml vial SC SCH ×4 (07:52→22:09)
[2018-11-20] MEDS ORDERED: Home Med 1 UNIT (Metformin [Glucophage] 1,000 MG) PO SCH (08:00)
[2018-11-20] MEDS ORDERED: (Novolog Mix 70/30) Insulin Aspart/Insulin Aspar 100 units/ml SC SCH (08:00)
[2018-11-20] MEDS: Albuterol-Ipratrop 20 mcg/actuation (4 g) IH SCH ×3 (08:15→21:27)
[2018-11-20] MEDS: (Novolog Mix 70/30) Insulin Aspart/Insulin Aspar 100 units/ml SC SCH ×2 (08:53→17:54)
[2018-11-20] MEDS: Enoxaparin 40 mg Syringe SC SCH ×2 (10:09→10:18)
[2018-11-20] MEDS: Metoprolol Succinate 25 mg XL Tab PO SCH (10:12)
--- NOTE | 2018-11-20 13:03 | CP.PCM.CON ---
History of Present Illness - History of Present Illness History of Present Illness: Luba Menezes, PGY-1, Cardiology Consult Note for Dr. Lang 63 year old male with past medical history of CAD, HTN, HLD, DMII, COPD, questionable HIV presents with chest tightness that started 2 days ago and shortness of breath that started one day ago. Patient reported that his shortness of breath was worse with effort and improved with rest. Patient went to see PCP, Dr. Gonzales yesterday who noticed right JVD and retained fluid on bilateral lower extremities and instructed him to come to the hospital. Patient today reports improvement of shortness of breath but still reports chest tightness. Patient has no other complaints at this time. PMH: as stated above PSH: denies SH: 1 PPD for 43 years, stopped smoking 1 month ago, denies alcohol and recreational drug use Allergies: NKDA FMHx: Mother had CAD and diabetes mellitus Patient had a stress test 3 years ago which he could not complete due to symptoms. Patient had a catheterization 1 year ago with stenting of the LAD. Recent catheterization with Dr. Lang in 08/2018 showed FFR of 0.85. Review of Systems - Review of Systems Review of Systems: except as mentioned above Past Patient History - Infectious Disease Hx of Infectious Diseases: None - Past Medical History & Family History Past Medical History?: Yes - Past Social History Smoking Status: Current Some Days Smoker - CARDIAC Hx Hypercholesterolemia: Yes Hx Hypertension: Yes Hx Pacemaker: No - PULMONARY Hx Bronchitis: Yes - NEUROLOGICAL Hx Neurological Disorder: No HX Cerebrovascular Accident: No - HEENT Hx HEENT Problems: No - RENAL Hx Chronic Kidney Disease: No - ENDOCRINE/METABOLIC Hx Endocrine Disorders: Yes Hx Diabetes Mellitus Type 2: Yes - HEMATOLOGICAL/ONCOLOGICAL Hx Human Immunodeficiency Virus (HIV): Yes (undetectable) - INTEGUMENTARY Hx Dermatological Problems: No - MUSCULOSKELETAL/RHEUMATOLOGICAL Hx Arthritis: Yes - GASTROINTESTINAL Hx Gastrointestinal Disorders: No - GENITOURINARY/GYNECOLOGICAL Hx Genitourinary Disorders: No - PSYCHIATRIC Hx Substance Use: Yes - SURGICAL HISTORY Hx Coronary Stent: Yes (cardiac cath with stent placement) - ANESTHESIA Hx Anesthesia: Yes Hx Anesthesia Reactions: No Hx Malignant Hyperthermia: No Meds Allergies/Adverse Reactions: Allergies Allergy/AdvReac Type Severity Reaction Status Date / Time No Known Allergies Allergy Verified 11/19/18 15:06 - Medications Medications: Current Medications Albuterol/Ipratropium (Combivent Respimat) 1 puff IH RQID [facility] Last Admin: 11/20/18 08:15 Dose: Not Given Aspirin (Aspirin Chewable) 81 mg PO DAILY [facility] Last Admin: 11/20/18 10:13 Dose: 81 mg Clopidogrel Bisulfate (Plavix) 75 mg PO DAILY [facility] Last Admin: 11/20/18 10:13 Dose: 75 mg Enoxaparin Sodium (Lovenox) 40 mg SC DAILY [facility] Last Admin: 11/20/18 10:18 Dose: 40 mg Furosemide (Lasix) 40 mg IVP BID [facility] Gabapentin (Neurontin) 400 mg PO TID [facility] Last Admin: 11/20/18 10:27 Dose: 400 mg Insulin Aspart (Novolog Mix 70/30 (70/30 Units/Ml)) [facility] Last Admin: 11/20/18 08:53 Dose: 10 unit Insulin Human Regular (Novolin R) 0 unit SC [facility]; Protocol Last Admin: 11/20/18 11:54 Dose: 3 unit Losartan Potassium (Cozaar) 100 mg PO DAILY [facility] Last Admin: 11/20/18 10:13 Dose: 100 mg Metformin [facility] (Gl[facility]ophage) [facility] Last Admin: 11/20/18 08:55 Dose: 1,000 mg Metoprolol Succinate (Toprol Xl) 25 mg PO DAILY [facility] Last Admin: 11/20/18 10:12 Dose: 25 mg Nicotine (Nicoderm Cq) 1 patch TD DAILY [facility] Last Admin: 11/20/18 10:13 Dose: Not Given Rosuvastatin Calcium (Crestor) 5 mg PO [facility] Physical Exam - Constitutional Appears: Well, Non-toxic, No Acute Distress - Head Exam Head Exam: ATRAUMATIC, NORMAL INSPECTION, NORMOCEPHALIC - Eye Exam Eye Exam: EOMI, PERRL - ENT Exam ENT Exam: Mucous Membranes Moist - Respiratory Exam Respiratory Exam: Clear to Auscultation Bilateral, NORMAL BREATHING PATTERN - Cardiovascular Exam Cardiovascular Exam: REGULAR RHYTHM, RRR, +S1, +S2. absent: JVD, Systolic Murmur - GI/Abdominal Exam GI & Abdominal Exam: Normal Bowel Sounds, Soft. absent: Tenderness - Extremities Exam Extremities exam: Positive for: full ROM, normal inspection. Negative for: joint swelling - Neurological Exam Neurological exam: Alert, CN II-XII Intact, Oriented x3 - Psychiatric Exam Psychiatric exam: Normal Affect, Normal Mood - Skin Skin Exam: Dry, Intact, Normal Color Results - Vital Signs Recent Vital Signs: Last Vital Signs Temp 97.7 F 11/20/18 07:00 Pulse 90 11/20/18 08:21 Resp 20 11/20/18 07:00 BP 131/89 11/20/18 10:13 Pulse Ox 99 11/20/18 08:20 - Labs Result Diagrams: 11/19/18 16:17 11/19/18 16:17 Labs: Laboratory Results - last 24 hr 11/19/18 11/19/18 11/19/18 16:17 16:17 16:17 WBC 6.0 D RBC 4.02 L Hgb 10.7 L Hct 33.0 L MCV 82.1 MCH 26.6 L MCHC 32.5 L RDW 15.8 H Plt Count 187 MPV 8.6 Neut % (Auto) 76.7 H Lymph % (Auto) 15.4 L [place] % (Auto) 6.3 Eos % (Auto) 1.2 Baso % (Auto) 0.4 Neut # (Auto) 4.6 Lymph # (Auto) 0.9 L [place] # (Auto) 0.4 Eos # (Auto) 0.1 Baso # (Auto) 0.0 PT 11.3 INR 1.0 APTT 32 Sodium 138 Potassium 3.9 Chloride 104 Carbon Dioxide 30 Anion Gap 8 L BUN 16 Creatinine 0.7 L Est GFR ( Amer) > 60 Est GFR (Non-Af Amer) > 60 POC Glucose (mg/dL) Random Glucose 122 H D Calcium 8.9 Total Bilirubin 0.6 AST 24 ALT 46 Alkaline Phosphatase 142 H Total Creatine Kinase 42 L CK-MB (Mass) 1.61 Troponin I 0.0140 NT-Pro-B Natriuret Pep 3220 H Total Protein 6.6 Albumin 3.5 Globulin 3.1 Albumin/Globulin Ratio 1.1 11/19/18 11/19/18 11/20/18 21:26 22:40 06:43 WBC RBC Hgb Hct MCV MCH MCHC RDW Plt Count MPV Neut % (Auto) Lymph % (Auto) [place] % (Auto) Eos % (Auto) Baso % (Auto) Neut # (Auto) Lymph # (Auto) [place] # (Auto) Eos # (Auto) Baso # (Auto) PT INR APTT Sodium Potassium Chloride Carbon Dioxide Anion Gap BUN Creatinine Est GFR ( Amer) Est GFR (Non-Af Amer) POC Glucose (mg/dL) 279 H 176 H Random Glucose Calcium Total Bilirubin AST ALT Alkaline Phosphatase Total Creatine Kinase 36 L CK-MB (Mass) 1.13 Troponin I 0.0120 NT-Pro-B Natriuret Pep Total Protein Albumin Globulin Albumin/Globulin Ratio 11/20/18 11:39 WBC RBC Hgb Hct MCV MCH MCHC RDW Plt Count MPV Neut % (Auto) Lymph % (Auto) [place] % (Auto) Eos % (Auto) Baso % (Auto) Neut # (Auto) Lymph # (Auto) [place] # (Auto) Eos # (Auto) Baso # (Auto) PT INR APTT Sodium Potassium Chloride Carbon Dioxide Anion Gap BUN Creatinine Est GFR ( Amer) Est GFR (Non-Af Amer) POC Glucose (mg/dL) 260 H Random Glucose Calcium Total Bilirubin AST ALT Alkaline Phosphatase Total Creatine Kinase CK-MB (Mass) Troponin I NT-Pro-B Natriuret Pep Total Protein Albumin Globulin Albumin/Globulin Ratio Assessment & Plan - Assessment and Plan (Free Text) Assessment: CAD CHF HTN HLD DMII COPD Plan: CAD CHF HTN HLD DMII COPD Echocardiogram from 08/2018: LVEF of 32%, grade II pseudonormal filling pressure, moderate TR, RVSP of 50-60 EKG 11/19: NSR with HR of 83 CXR 11/19: moderate pulmonary venous congestion, increased pulmonary interstitial marking, patchy bibasilar airspace Troponinx2: 0.014, 0.012 BNP: 3220 [id number] 10/29/18: 7.2 Medications aspirin plavix lasix 40 mg IV Q12 cozaar metformin nicotine patch rosuvastatin - Date & Time Date: 11/20/18 Time: 13:04
--- NOTE | 2018-11-20 13:29 | CARD ---
APPROVED REPORT Date of service: 11/19/2018 EKG Measurement Heart [id number] <Conclusion> Normal sinus rhythm Possible Left atrial enlargement Septal infarct, age undetermined T wave abnormality, consider lateral ischemia Abnormal ECG
--- NOTE | 2018-11-20 21:59 | CP.PCM.PN ---
Subjective - Date & Time of Evaluation Date of Evaluation: 11/20/18 Time of Evaluation: 20:00 - Subjective Subjective: dictated Objective - Vital Signs/Intake and Output Vital Signs (last 24 hours): Temp Pulse Resp BP Pulse Ox 97.8 F 72 20 109/71 97 11/20/18 15:00 11/20/18 16:00 11/20/18 15:00 11/20/18 15:00 11/20/18 16:00 - Medications Medications: Current Medications Albuterol/Ipratropium (Combivent Respimat) 1 puff IH RQID [facility] Last Admin: 11/20/18 21:27 Dose: 1 puff Aspirin (Aspirin Chewable) 81 mg PO DAILY [facility] Last Admin: 11/20/18 10:13 Dose: 81 mg Clopidogrel Bisulfate (Plavix) 75 mg PO DAILY [facility] Last Admin: 11/20/18 10:13 Dose: 75 mg Enoxaparin Sodium (Lovenox) 40 mg SC DAILY [facility] Last Admin: 11/20/18 10:18 Dose: 40 mg Furosemide (Lasix) 40 mg IVP BID [facility] Last Admin: 11/20/18 18:53 Dose: Not Given Gabapentin (Neurontin) 400 mg PO TID [facility] Last Admin: 11/20/18 17:54 Dose: 400 mg Insulin Aspart (Novolog Mix 70/30 (70/30 Units/Ml)) 10 units SC BIDCC [facility] Last Admin: 11/20/18 17:54 Dose: 10 unit Insulin Human Regular (Novolin R) 0 unit SC ACHS [facility]; Protocol Last Admin: 11/20/18 17:00 Dose: Not Given Losartan Potassium (Cozaar) 100 mg PO DAILY [facility] Last Admin: 11/20/18 10:13 Dose: 100 mg Metformin HCl (Glucophage) 1,000 mg PO BIDCC [facility] Last Admin: 11/20/18 17:54 Dose: 1,000 mg Metoprolol Succinate (Toprol Xl) 25 mg PO DAILY [facility] Last Admin: 11/20/18 10:12 Dose: 25 mg Nicotine (Nicoderm Cq) 1 patch TD DAILY [facility] Last Admin: 11/20/18 10:13 Dose: Not Given Rosuvastatin Calcium (Crestor) 5 mg PO HS [facility] Last Admin: 11/20/18 21:25 Dose: 5 mg - Labs Labs: 11/19/18 16:17 11/19/18 16:17 PT 11.3 SECONDS (9.7-12.2) 11/19/18 16:17 INR 1.0 11/19/18 16:17 APTT 32 SECONDS (21-34) 11/19/18 16:17
--- NOTE | 2018-11-20 22:00 | CP.PCM.PN ---
Subjective - Date & Time of Evaluation Date of Evaluation: 11/20/18 Time of Evaluation: 20:20 - Subjective Subjective: dictated Objective - Vital Signs/Intake and Output Vital Signs (last 24 hours): Temp Pulse Resp BP Pulse Ox 97.8 F 72 20 109/71 97 11/20/18 15:00 11/20/18 16:00 11/20/18 15:00 11/20/18 15:00 11/20/18 16:00 - Medications Medications: Current Medications Albuterol/Ipratropium (Combivent Respimat) 1 puff IH RQID [facility] Last Admin: 11/20/18 21:27 Dose: 1 puff Aspirin (Aspirin Chewable) 81 mg PO DAILY [facility] Last Admin: 11/20/18 10:13 Dose: 81 mg Clopidogrel Bisulfate (Plavix) 75 mg PO DAILY [facility] Last Admin: 11/20/18 10:13 Dose: 75 mg Enoxaparin Sodium (Lovenox) 40 mg SC DAILY [facility] Last Admin: 11/20/18 10:18 Dose: 40 mg Furosemide (Lasix) 40 mg IVP BID [facility] Last Admin: 11/20/18 18:53 Dose: Not Given Gabapentin (Neurontin) 400 mg PO TID [facility] Last Admin: 11/20/18 17:54 Dose: 400 mg Insulin Aspart (Novolog Mix 70/30 (70/30 Units/Ml)) 10 units SC BIDCC [facility] Last Admin: 11/20/18 17:54 Dose: 10 unit Insulin Human Regular (Novolin R) 0 unit SC ACHS [facility]; Protocol Last Admin: 11/20/18 17:00 Dose: Not Given Losartan Potassium (Cozaar) 100 mg PO DAILY [facility] Last Admin: 11/20/18 10:13 Dose: 100 mg Metformin HCl (Glucophage) 1,000 mg PO BIDCC [facility] Last Admin: 11/20/18 17:54 Dose: 1,000 mg Metoprolol Succinate (Toprol Xl) 25 mg PO DAILY [facility] Last Admin: 11/20/18 10:12 Dose: 25 mg Nicotine (Nicoderm Cq) 1 patch TD DAILY [facility] Last Admin: 11/20/18 10:13 Dose: Not Given Rosuvastatin Calcium (Crestor) 5 mg PO HS [facility] Last Admin: 11/20/18 21:25 Dose: 5 mg - Labs Labs: 11/19/18 16:17 11/19/18 16:17 PT 11.3 SECONDS (9.7-12.2) 11/19/18 16:17 INR 1.0 11/19/18 16:17 APTT 32 SECONDS (21-34) 11/19/18 16:17
--- NOTE | 2018-11-21 02:16 | PN ---
DATE: 11/20/2018 SUBJECTIVE: The patient is less short of breath, less orthopnea, less PND. His cardiac enzymes x2 are negative. No nausea or vomiting. No chest pain. PHYSICAL EXAMINATION: VITAL SIGNS: Blood pressure 109/71, pulse 60, respiratory rate 20, temperature 97.8. LUNGS: Bilateral basal crepitations. CARDIOVASCULAR SYSTEM: PMI not localized. S1, S2 plus. S3 positive. ABDOMEN: Soft, nontender. Bowel sounds are positive. ASSESSMENT: 1. Acute exacerbation of systolic heart failure. 2. Ischemic heart disease. 3. Type 2 diabetes. 4. Hypertension. PLAN: Medical management. Monitor the patient. Esau Gordillo MD
[2018-11-21 07:28] LABS: BLOOD UREA NITROGEN 25 mg/dL (9-20); CALCIUM 8.7 mg/dl (8.6-10.4); GFR NON-AFRICAN AMERICAN > 60
[2018-11-21] MEDS: (Novolin R) Insulin Human Regular 100 units/ml vial SC SCH ×4 (08:27→21:34)
[2018-11-21] MEDS: (Novolog Mix 70/30) Insulin Aspart/Insulin Aspar 100 units/ml SC SCH ×2 (08:34→16:43)
[2018-11-21] MEDS: Metoprolol Succinate 25 mg XL Tab PO SCH (09:16)
[2018-11-21] MEDS: Enoxaparin 40 mg Syringe SC SCH (09:16)
[2018-11-21] MEDS: Albuterol-Ipratrop 20 mcg/actuation (4 g) IH SCH ×3 (10:03→20:13)
--- NOTE | 2018-11-21 21:28 | CP.PCM.PN ---
Subjective - Date & Time of Evaluation Date of Evaluation: 11/21/18 Time of Evaluation: 07:40 - Subjective Subjective: dictated Objective - Vital Signs/Intake and Output Vital Signs (last 24 hours): Temp Pulse Resp BP Pulse Ox 97.6 F 84 20 135/85 97 11/21/18 16:51 11/21/18 19:07 11/21/18 16:51 11/21/18 17:55 11/21/18 16:51 Intake and Output: 11/21/18 11/22/18 18:59 06:59 Intake Total 200 400 Balance 200 400 - Medications Medications: Current Medications Acetaminophen (Tylenol 325mg Tab) 650 mg PO Q6 PRN PRN Reason: Pain, moderate (4-7) Last Admin: 11/21/18 17:12 Dose: 650 mg Albuterol/Ipratropium (Combivent Respimat) 1 puff IH RQID [facility] Last Admin: 11/21/18 20:13 Dose: 1 puff Aspirin (Aspirin Chewable) 81 mg PO DAILY [facility] Last Admin: 11/21/18 09:17 Dose: 81 mg Clopidogrel Bisulfate (Plavix) 75 mg PO DAILY [facility] Last Admin: 11/21/18 09:16 Dose: 75 mg Enoxaparin Sodium (Lovenox) 40 mg SC DAILY [facility] Last Admin: 11/21/18 09:16 Dose: 40 mg Furosemide (Lasix) 40 mg IVP BID [facility] Last Admin: 11/21/18 17:52 Dose: 40 mg Gabapentin (Neurontin) 400 mg PO TID [facility] Last Admin: 11/21/18 17:51 Dose: 400 mg Insulin Aspart (Novolog Mix 70/30 (70/30 Units/Ml)) [facility] Last Admin: 11/21/18 16:43 Dose: 10 unit Insulin Human Regular (Novolin R) 0 unit SC [facility]; Protocol Last Admin: 11/21/18 16:44 Dose: 1 unit Losartan Potassium (Cozaar) 100 mg PO DAILY [facility] Last Admin: 11/21/18 09:16 Dose: 100 mg Metformin HCl (Glucophage) 1,000 mg PO BIDCC [facility] Last Admin: 11/21/18 16:43 Dose: 1,000 mg Metoprolol Succinate (Toprol Xl) 25 mg PO DAILY [facility] Last Admin: 11/21/18 09:16 Dose: 25 mg Nicotine (Nicoderm Cq) 1 patch TD DAILY [facility] Last Admin: 11/21/18 09:17 Dose: 1 patch Rosuvastatin Calcium (Crestor) 5 mg PO HS [facility] Last Admin: 11/20/18 21:25 Dose: 5 mg - Labs Labs: 11/19/18 16:17 11/21/18 06:35 PT 11.3 SECONDS (9.7-12.2) 11/19/18 16:17 INR 1.0 11/19/18 16:17 APTT 32 SECONDS (21-34) 11/19/18 16:17
--- NOTE | 2018-11-22 02:20 | PN ---
DATE: 11/21/2018 SUBJECTIVE: The patient is less short of breath, less orthopneic. He had one episode of chest pain. He is for evaluation by Cardiology. He denies any nausea, vomiting or diarrhea. No fever, no cough, no sore throat. PHYSICAL EXAMINATION: VITAL SIGNS: Blood pressure 135/85, pulse 89, respiratory rate 20, temperature 97.6. LUNGS: Bilateral basal crepitation. Decreased air entry. CARDIOVASCULAR SYSTEM: S1 and S2 plus S3 positive. ABDOMEN: Soft, nontender. Bowel sounds are positive. ASSESSMENT: 1. Exacerbation of congestive heart failure. 2. Coronary artery disease, ischemic cardiomyopathy. 3. Type 2 diabetes. 4. Hyperlipidemia. PLAN: Diuretic. Intake and output . Cardiology evaluation. Esau Gordillo MD
[2018-11-22] MEDS: (Novolin R) Insulin Human Regular 100 units/ml vial SC SCH ×4 (08:20→21:12)
[2018-11-22] MEDS: (Novolog Mix 70/30) Insulin Aspart/Insulin Aspar 100 units/ml SC SCH ×2 (08:43→17:44)
[2018-11-22] MEDS: Metoprolol Succinate 25 mg XL Tab PO SCH (09:44)
[2018-11-22] MEDS: Enoxaparin 40 mg Syringe SC SCH (09:45)
[2018-11-22] MEDS: Albuterol-Ipratrop 20 mcg/actuation (4 g) IH SCH (20:25)
--- NOTE | 2018-11-22 23:17 | CP.PCM.PN ---
Subjective - Date & Time of Evaluation Date of Evaluation: 11/22/18 Time of Evaluation: 16:20 - Subjective Subjective: dictated Objective - Vital Signs/Intake and Output Vital Signs (last 24 hours): Temp Pulse Resp BP Pulse Ox 97.9 F 83 20 135/76 95 11/22/18 16:00 11/22/18 16:00 11/22/18 16:00 11/22/18 17:45 11/22/18 16:00 - Medications Medications: Current Medications Acetaminophen (Tylenol 325mg Tab) 650 mg PO Q6 PRN PRN Reason: Pain, moderate (4-7) Last Admin: 11/21/18 23:41 Dose: 650 mg Albuterol/Ipratropium (Combivent Respimat) 1 puff IH RQID [facility] Last Admin: 11/22/18 20:25 Dose: 1 puff Aspirin (Aspirin Chewable) 81 mg PO DAILY [facility] Last Admin: 11/22/18 09:44 Dose: 81 mg Clopidogrel Bisulfate (Plavix) 75 mg PO DAILY [facility] Last Admin: 11/22/18 09:44 Dose: 75 mg Enoxaparin Sodium (Lovenox) 40 mg SC DAILY [facility] Last Admin: 11/22/18 09:45 Dose: 40 mg Furosemide (Lasix) 40 mg IVP BID [facility] Last Admin: 11/22/18 17:45 Dose: 40 mg Gabapentin (Neurontin) 400 mg PO TID [facility] Last Admin: 11/22/18 17:45 Dose: 400 mg Insulin Aspart (Novolog Mix 70/30 (70/30 Units/Ml)) 10 units SC [facility] Last Admin: 11/22/18 17:44 Dose: 10 unit Insulin Human Regular (Novolin R) 0 unit SC [facility]; Protocol Last Admin: 11/22/18 21:12 Dose: Not Given Losartan Potassium (Cozaar) 100 mg PO DAILY [facility] Last Admin: 11/22/18 09:44 Dose: 100 mg Metformin HCl (Glucophage) 1,000 mg PO BIDCC [facility] Last Admin: 11/22/18 17:45 Dose: 1,000 mg Metoprolol Succinate (Toprol Xl) 25 mg PO DAILY [facility] Last Admin: 11/22/18 09:44 Dose: 25 mg Nicotine (Nicoderm Cq) 1 patch TD DAILY [facility] Last Admin: 11/22/18 09:42 Dose: 1 patch Rosuvastatin Calcium (Crestor) 5 mg PO HS [facility] Last Admin: 11/22/18 21:11 Dose: 5 mg - Labs Labs: 11/19/18 16:17 11/21/18 06:35 PT 11.3 SECONDS (9.7-12.2) 11/19/18 16:17 INR 1.0 11/19/18 16:17 APTT 32 SECONDS (21-34) 11/19/18 16:17
--- NOTE | 2018-11-23 03:43 | PN ---
DATE: 11/22/2018 SUBJECTIVE: The patient is to be evaluated by Cardiology. Less short of breath. Less orthopnea. No nausea or vomiting. PHYSICAL EXAMINATION: VITAL SIGNS: Blood pressure 132/80, pulse 53, respiratory rate 20, temperature 97.9. LUNGS: Bilateral basal crepitation. CARDIOVASCULAR SYSTEM: S1, S2 plus. S3 positive. ABDOMEN: Soft and nontender. Bowel sounds are positive. ASSESSMENT: 1. Acute exacerbation of congestive heart failure due to ischemic cardiomyopathy and ischemic heart disease. 2. Coronary artery disease. 3. Hypertension. 4. Type 2 diabetes. PLAN: Diuretics. Intake and output, cardio evaluation. The patient might need AICD. Esau Gordillo MD
[2018-11-23] MEDS: Albuterol-Ipratrop 20 mcg/actuation (4 g) IH SCH ×3 (07:40→16:20)
[2018-11-23] MEDS: Metoprolol Succinate 25 mg XL Tab PO SCH (09:23)
[2018-11-23] MEDS: Enoxaparin 40 mg Syringe SC SCH (09:26)
[2018-11-23] MEDS: (Novolog Mix 70/30) Insulin Aspart/Insulin Aspar 100 units/ml SC SCH ×2 (09:33→17:42)
[2018-11-23] MEDS: (Novolin R) Insulin Human Regular 100 units/ml vial SC SCH ×4 (09:40→21:32)
[2018-11-23 11:46] LABS: BASO % 0.5 % (0.0-2.0); EOS # 0.2 K/uL (0.0-0.7); EOS % 2.7 % (0.0-4.0); HEMOGLOBIN 11.7 g/dL (12.0-18.0); LYMPH # 1.2 K/uL (1.0-4.3); LYMPH % 20.3 % (20.0-40.0); MEAN CELL VOLUME 81.2 fL (80.0-94.0); MEAN CORPUSCULAR HEMOGLOBIN 26.8 pg (27.0-31.0); MEAN PLATELET VOLUME 8.5 fL (7.2-11.7); MONO # 0.5 K/uL (0.0-0.8); MONO % 8.1 % (0.0-10.0); NEUT % 68.4 % (50.0-75.0); RBC 4.34 Mil/uL (4.40-5.90); RED CELL DISTRIBUTION WIDTH 15.2 % (11.5-14.5); WHITE BLOOD COUNT 5.9 K/uL (4.8-10.8)
[2018-11-23 12:08] LABS: ALB/GLOB RATIO 1.2 (1.0-2.1); ALBUMIN 3.6 g/dL (3.5-5.0); ALT/SGPT 55 U/L (21-72); AST/SGOT 52 U/L (17-59); BLOOD UREA NITROGEN 31 mg/dL (9-20); CALCIUM 9.1 mg/dl (8.6-10.4); GFR NON-AFRICAN AMERICAN > 60
[2018-11-23 17:17] VITALS: RESP 20
--- NOTE | 2018-11-23 19:12 | CP.PCM.PN ---
Subjective - Date & Time of Evaluation Date of Evaluation: 11/23/18 Time of Evaluation: 19:09 - Subjective Subjective: Luba Menezes, PGY-1, Cardiology Progress Note for Dr. Lang Patient seen and evaluated at bedside. Patient had no acute overnight events. Patient's chest tightness has significantly improved. Patient denies any other symptoms including shortness of breath, nausea, diaphoresis, left arm pain, jaw pain, dizziness. Objective - Vital Signs/Intake and Output Vital Signs (last 24 hours): Temp Pulse Resp BP Pulse Ox 97.5 F L 79 20 143/91 H 98 11/23/18 16:00 11/23/18 16:01 11/23/18 16:00 11/23/18 17:46 11/23/18 16:00 - Medications Medications: Current Medications Acetaminophen (Tylenol 325mg Tab) 650 mg PO Q6 PRN PRN Reason: Pain, moderate (4-7) Last Admin: 11/23/18 17:44 Dose: 650 mg Albuterol/Ipratropium (Combivent Respimat) 1 puff IH RQID [facility] Last Admin: 11/23/18 16:20 Dose: 1 puff Aspirin (Aspirin Chewable) 81 mg PO DAILY [facility] Last Admin: 11/23/18 09:23 Dose: 81 mg Clopidogrel Bisulfate (Plavix) 75 mg PO DAILY [facility] Last Admin: 11/23/18 09:24 Dose: 75 mg Enoxaparin Sodium (Lovenox) 40 mg SC DAILY [facility] Last Admin: 11/23/18 09:26 Dose: 40 mg Furosemide (Lasix) 40 mg IVP BID [facility] Last Admin: 11/23/18 17:46 Dose: 40 mg Gabapentin (Neurontin) 400 mg PO TID [facility] Last Admin: 11/23/18 17:42 Dose: 400 mg Insulin Aspart (Novolog Mix 70/30 (70/30 Units/Ml)) [facility] Last Admin: 11/23/18 17:42 Dose: 10 unit Insulin Human Regular (Novolin R) 0 unit SC [facility]; Protocol Last Admin: 11/23/18 17:42 Dose: 1 unit Losartan Potassium (Cozaar) 100 mg PO DAILY [facility] Last Admin: 11/23/18 09:24 Dose: 100 mg Metformin HCl (Glucophage) 1,000 mg PO BIDCC [facility] Last Admin: 11/23/18 17:43 Dose: 1,000 mg Metoprolol Succinate (Toprol Xl) 25 mg PO DAILY [facility] Last Admin: 11/23/18 09:23 Dose: 25 mg Nicotine (Nicoderm Cq) 1 patch TD DAILY [facility] Last Admin: 11/23/18 09:32 Dose: 1 patch Rosuvastatin Calcium (Crestor) 5 mg PO HS [facility] Last Admin: 11/22/18 21:11 Dose: 5 mg - Labs Labs: 11/23/18 11:36 11/23/18 11:36 PT 11.3 SECONDS (9.7-12.2) 11/19/18 16:17 INR 1.0 11/19/18 16:17 APTT 32 SECONDS (21-34) 11/19/18 16:17 - Constitutional Appears: Well, Non-toxic, No Acute Distress - Head Exam Head Exam: ATRAUMATIC, NORMAL INSPECTION, NORMOCEPHALIC - Eye Exam Eye Exam: EOMI, PERRL - ENT Exam ENT Exam: Mucous Membranes Moist - Respiratory Exam Respiratory Exam: Clear to Ausculation Bilateral, NORMAL BREATHING PATTERN - Cardiovascular Exam Cardiovascular Exam: REGULAR RHYTHM, RRR, +S1, +S2 - GI/Abdominal Exam GI & Abdominal Exam: Soft, Normal Bowel Sounds. absent: Tenderness - Extremities Exam Extremities Exam: Full ROM, Normal Capillary Refill, Normal Inspection. absent: Pedal Edema - Neurological Exam Neurological Exam: Alert, Awake, CN II-XII Intact, Oriented x3 - Skin Skin Exam: Dry, Intact, Normal Color Assessment and Plan - Assessment and Plan (Free Text) Assessment: CAD CHF HTN HLD DMII COPD Plan: CAD CHF HTN HLD DMII COPD Echocardiogram from 08/2018: LVEF of 32%, grade II pseudonormal filling pressure, moderate TR, RVSP of 50-60 EKG 11/19: NSR with HR of 83 CXR 11/19: moderate pulmonary venous congestion, increased pulmonary interstitial marking, patchy bibasilar airspace Troponinx2: 0.014, 0.012 BNP: 3220 HgbA1c 10/29/18: 7.2 Will diuresis patient for one more day prior to discharge Medications aspirin plavix lasix 40 mg IV BID cozaar metformin nicotine patch rosuvastatin
--- NOTE | 2018-11-23 21:11 | CP.PCM.PN ---
Subjective - Date & Time of Evaluation Date of Evaluation: 11/23/18 Time of Evaluation: 07:20 - Subjective Subjective: dictated Objective - Vital Signs/Intake and Output Vital Signs (last 24 hours): Temp Pulse Resp BP Pulse Ox 97.5 F L 79 20 143/91 H 98 11/23/18 16:00 11/23/18 16:01 11/23/18 16:00 11/23/18 17:46 11/23/18 16:00 - Medications Medications: Current Medications Acetaminophen (Tylenol 325mg Tab) 650 mg PO Q6 PRN PRN Reason: Pain, moderate (4-7) Last Admin: 11/23/18 17:44 Dose: 650 mg Albuterol/Ipratropium (Combivent Respimat) 1 puff IH RQID [facility] Last Admin: 11/23/18 16:20 Dose: 1 puff Aspirin (Aspirin Chewable) 81 mg PO DAILY [facility] Last Admin: 11/23/18 09:23 Dose: 81 mg Clopidogrel Bisulfate (Plavix) 75 mg PO DAILY [facility] Last Admin: 11/23/18 09:24 Dose: 75 mg Enoxaparin Sodium (Lovenox) 40 mg SC DAILY [facility] Last Admin: 11/23/18 09:26 Dose: 40 mg Furosemide (Lasix) 40 mg IVP BID [facility] Last Admin: 11/23/18 17:46 Dose: 40 mg Gabapentin (Neurontin) 400 mg PO TID [facility] Last Admin: 11/23/18 17:42 Dose: 400 mg Insulin Aspart (Novolog Mix 70/30 (70/30 Units/Ml)) 10 units SC [facility] Last Admin: 11/23/18 17:42 Dose: 10 unit Insulin Human Regular (Novolin R) 0 unit SC [facility]; Protocol Last Admin: 11/23/18 17:42 Dose: 1 unit Losartan Potassium (Cozaar) 100 mg PO DAILY [facility] Last Admin: 11/23/18 09:24 Dose: 100 mg Metformin HCl (Glucophage) 1,000 mg PO BIDCC [facility] Last Admin: 11/23/18 17:43 Dose: 1,000 mg Metoprolol Succinate (Toprol Xl) 25 mg PO DAILY [facility] Last Admin: 11/23/18 09:23 Dose: 25 mg Nicotine (Nicoderm Cq) 1 patch TD DAILY [facility] Last Admin: 11/23/18 09:32 Dose: 1 patch Rosuvastatin Calcium (Crestor) 5 mg PO HS [facility] Last Admin: 11/22/18 21:11 Dose: 5 mg - Labs Labs: 11/23/18 11:36 11/23/18 11:36 PT 11.3 SECONDS (9.7-12.2) 11/19/18 16:17 INR 1.0 11/19/18 16:17 APTT 32 SECONDS (21-34) 11/19/18 16:17
--- NOTE | 2018-11-24 01:28 | PN ---
DATE: 11/23/2018 SUBJECTIVE: The patient is feeling better. Less short of breath. Less orthopnea and less PND. No nausea, vomiting. No chest pain. PHYSICAL EXAMINATION: VITAL SIGNS: Blood pressure 104/72, pulse 82, respiratory rate 20, temperature 97.5. LUNGS: Bilateral basal crepitation. No rhonchi. CARDIOVASCULAR SYSTEM: PMI not localized. S1, S2 plus. S3 positive. ABDOMEN: Soft, nontender. Bowel sounds are positive. ASSESSMENT: 1. Coronary artery disease, ischemic cardiomyopathy. The patient might need a coronary artery bypass grafting based on the patient's progressive nature of the disease and if it is, the patient may have to be transferred to [facility]. 2. Hypotension. 3. Poorly controlled diabetes. 4. Congestive heart failure due to cardiomyopathy. PLAN: Diuretics. Intake and output. Daily bodyweight. Monitor the patient. Esau Gordillo MD
[2018-11-24] MEDS: Albuterol-Ipratrop 20 mcg/actuation (4 g) IH SCH ×2 (07:35→11:40)
[2018-11-24] MEDS: (Novolin R) Insulin Human Regular 100 units/ml vial SC SCH ×2 (08:15→12:23)
[2018-11-24] MEDS: (Novolog Mix 70/30) Insulin Aspart/Insulin Aspar 100 units/ml SC SCH (08:15)
[2018-11-24] MEDS: Enoxaparin 40 mg Syringe SC SCH (09:12)
[2018-11-24] MEDS: Metoprolol Succinate 25 mg XL Tab PO SCH (09:23)
[2018-11-24 16:53] VITALS: BP 97/60; PULSE 93; TEMP 97.4; O2SAT 97
--- NOTE | 2018-11-24 16:56 | CP.PCM.PN ---
Subjective - Date & Time of Evaluation Date of Evaluation: 11/24/18 Time of Evaluation: 16:55 - Subjective Subjective: PATIENT SEEN AND EXAMINED AT THE BEDSIDE Objective - Vital Signs/Intake and Output Vital Signs (last 24 hours): Temp Pulse Resp BP Pulse Ox 97.4 F L 93 H 20 97/60 L 97 11/24/18 15:43 11/24/18 15:43 11/24/18 15:43 11/24/18 15:43 11/24/18 15:43 Intake and Output: 11/24/18 11/24/18 06:59 18:59 Intake Total 600 Balance 600 - Medications Medications: Current Medications Acetaminophen (Tylenol 325mg Tab) 650 mg PO Q6 PRN PRN Reason: Pain, moderate (4-7) Last Admin: 11/24/18 02:58 Dose: 650 mg Albuterol/Ipratropium (Combivent Respimat) 1 puff IH RQID [facility] Last Admin: 11/24/18 11:40 Dose: 1 puff Aspirin (Aspirin Chewable) 81 mg PO DAILY [facility] Last Admin: 11/24/18 09:06 Dose: 81 mg Clopidogrel Bisulfate (Plavix) 75 mg PO DAILY [facility] Last Admin: 11/24/18 09:06 Dose: 75 mg Enoxaparin Sodium (Lovenox) 40 mg SC DAILY [facility] Last Admin: 11/24/18 09:12 Dose: 40 mg Furosemide (Lasix) 40 mg IVP BID [facility] Last Admin: 11/24/18 09:08 Dose: 40 mg Gabapentin (Neurontin) 400 mg PO TID [facility] Last Admin: 11/24/18 13:23 Dose: 400 mg Insulin Aspart (Novolog Mix 70/30 (70/30 Units/Ml)) [facility] Last Admin: 11/24/18 08:15 Dose: 10 unit Insulin Human Regular (Novolin R) 0 unit SC [facility]; Protocol Last Admin: 11/24/18 12:23 Dose: 1 unit Losartan Potassium (Cozaar) 100 mg PO DAILY [facility] Last Admin: 11/24/18 09:06 Dose: 100 mg Metformin HCl (Glucophage) 1,000 mg PO BIDCC [facility] Last Admin: 11/24/18 08:35 Dose: 1,000 mg Metoprolol Succinate (Toprol Xl) 25 mg PO DAILY [facility] Last Admin: 11/24/18 09:23 Dose: Not Given Nicotine (Nicoderm Cq) 1 patch TD DAILY [facility] Last Admin: 11/24/18 09:08 Dose: 1 patch Rosuvastatin Calcium (Crestor) 5 mg PO HS [facility] Last Admin: 11/23/18 21:32 Dose: 5 mg - Labs Labs: 11/23/18 11:36 11/23/18 11:36 PT 11.3 SECONDS (9.7-12.2) 11/19/18 16:17 INR 1.0 11/19/18 16:17 APTT 32 SECONDS (21-34) 11/19/18 16:17 Assessment and Plan - Assessment and Plan (Free Text) Assessment: FOLLOW UP WITH DR STODDARD IN HIS OFFICE -----CALL FOR APPOINTMENT FOLLOW UP WITH DR MARY IN HIS OFFICE ----CALL FOR APPOINTMENT FOLLOW UP WITH DR HOMAR HUANG ----CALL FOR APPOINTMENT ADDRESS YOUR ICD AT YOUR VISIT CONTINUE HOME MEDICATION ACTIVITY TOLERATED CALL DR STODDARD OR DR ZHENG OR GO TO THE EMERGENCY ROOM IF SYMPTOM RETURN OR WORSENING
--- NOTE | 2018-11-24 17:50 | CP.PCM.PN ---
Subjective - Date & Time of Evaluation Date of Evaluation: 11/24/18 Time of Evaluation: 17:48 - Subjective Subjective: Luba Menezes, PGY-1, Cardiology Progress Note for Dr. Lang Patient seen and evaluated at bedside. Patient had no acute overnight events. Patient's denies any symptoms including chest pain, shortness of breath, nausea, diaphoresis, left arm pain, jaw pain, dizziness. Objective - Vital Signs/Intake and Output Vital Signs (last 24 hours): Temp Pulse Resp BP Pulse Ox 97.4 F L 93 H 20 97/60 L 97 11/24/18 15:43 11/24/18 15:43 11/24/18 15:43 11/24/18 15:43 11/24/18 15:43 Intake and Output: 11/24/18 11/24/18 06:59 18:59 Intake Total 600 Balance 600 - Medications Medications: Current Medications Acetaminophen (Tylenol 325mg Tab) 650 mg PO Q6 PRN PRN Reason: Pain, moderate (4-7) Last Admin: 11/24/18 02:58 Dose: 650 mg Albuterol/Ipratropium (Combivent Respimat) 1 puff IH RQID [facility] Last Admin: 11/24/18 11:40 Dose: 1 puff Aspirin (Aspirin Chewable) 81 mg PO DAILY [facility] Last Admin: 11/24/18 09:06 Dose: 81 mg Clopidogrel Bisulfate (Plavix) 75 mg PO DAILY [facility] Last Admin: 11/24/18 09:06 Dose: 75 mg Enoxaparin Sodium (Lovenox) 40 mg SC DAILY [facility] Last Admin: 11/24/18 09:12 Dose: 40 mg Furosemide (Lasix) 40 mg IVP BID [facility] Last Admin: 11/24/18 09:08 Dose: 40 mg Gabapentin (Neurontin) 400 mg PO TID [facility] Last Admin: 11/24/18 13:23 Dose: 400 mg Insulin Aspart (Novolog Mix 70/30 (70/30 Units/Ml)) 10 units SC BIDCC [facility] Last Admin: 11/24/18 08:15 Dose: 10 unit Insulin Human Regular (Novolin R) 0 unit SC ACHS [facility]; Protocol Last Admin: 11/24/18 12:23 Dose: 1 unit Losartan Potassium (Cozaar) 100 mg PO DAILY [facility] Last Admin: 11/24/18 09:06 Dose: 100 mg Metformin HCl (Glucophage) 1,000 mg PO BIDCC [facility] Last Admin: 11/24/18 08:35 Dose: 1,000 mg Metoprolol Succinate (Toprol Xl) 25 mg PO DAILY [facility] Last Admin: 11/24/18 09:23 Dose: Not Given Nicotine (Nicoderm Cq) 1 patch TD DAILY [facility] Last Admin: 11/24/18 09:08 Dose: 1 patch Rosuvastatin Calcium (Crestor) 5 mg PO HS [facility] Last Admin: 11/23/18 21:32 Dose: 5 mg - Labs Labs: 11/23/18 11:36 11/23/18 11:36 PT 11.3 SECONDS (9.7-12.2) 11/19/18 16:17 INR 1.0 11/19/18 16:17 APTT 32 SECONDS (21-34) 11/19/18 16:17 - Constitutional Appears: Well, Non-toxic, No Acute Distress - Head Exam Head Exam: ATRAUMATIC, NORMAL INSPECTION, NORMOCEPHALIC - Eye Exam Eye Exam: EOMI, PERRL - ENT Exam ENT Exam: Mucous Membranes Moist - Respiratory Exam Respiratory Exam: Clear to Ausculation Bilateral, NORMAL BREATHING PATTERN - Cardiovascular Exam Cardiovascular Exam: REGULAR RHYTHM, RRR - GI/Abdominal Exam GI & Abdominal Exam: Soft, Normal Bowel Sounds. absent: Tenderness - Extremities Exam Extremities Exam: Full ROM, Normal Capillary Refill. absent: Pedal Edema - Neurological Exam Neurological Exam: Alert, Awake, CN II-XII Intact, Oriented x3 - Skin Skin Exam: Dry, Intact, Normal Color Assessment and Plan - Assessment and Plan (Free Text) Assessment: CAD CHF HTN HLD DMII COPD Plan: CAD CHF HTN HLD DMII COPD Echocardiogram from 08/2018: LVEF of 32%, grade II pseudonormal filling pressure, moderate TR, RVSP of 50-60 EKG 11/19: NSR with HR of 83 CXR 11/19: moderate pulmonary venous congestion, increased pulmonary interstitial marking, patchy bibasilar airspace Troponinx2: 0.014, 0.012 BNP: 3220 HgbA1c 10/29/18: 7.2 Patient is cleared for discharge from cardiac standpoint and should follow up with Dr. Lang outpatient. Medications aspirin plavix lasix 40 mg IV BID cozaar metformin nicotine patch rosuvastatin
--- NOTE | 2018-11-25 00:13 | CP.PCM.DIS ---
Provider - Provider Date of Admission: 11/21/18 22:19 Attending physician: Esau Gordillo MD Consults: 11/19/18 21:59 Cardiology Consult Routine Comment: Consulting Provider: Arsenio Lang Consulting Physician: Arsenio Lang Reason for Consult: chf 11/21/18 23:22 Social Work Referral Routine Comment: discharge planning Physician Instructions: Reason For Exam: hermila score 17 Time Spent in preparation of Discharge (in minutes): 30 Hospital Course - Lab Results Lab Results: Most Recent Lab Values WBC 5.9 K/uL (4.8-10.8) 11/23/18 11:36 RBC 4.34 Mil/uL (4.40-5.90) L 11/23/18 11:36 Hgb 11.7 g/dL (12.0-18.0) L 11/23/18 11:36 Hct 35.3 % (35.0-51.0) 11/23/18 11:36 MCV 81.2 fL (80.0-94.0) 11/23/18 11:36 MCH 26.8 pg (27.0-31.0) L 11/23/18 11:36 MCHC 33.0 g/dL (33.0-37.0) 11/23/18 11:36 RDW 15.2 % (11.5-14.5) H 11/23/18 11:36 Plt Count 209 K/uL (130-400) 11/23/18 11:36 MPV 8.5 fL (7.2-11.7) 11/23/18 11:36 Neut % (Auto) 68.4 % (50.0-75.0) 11/23/18 11:36 Lymph % (Auto) 20.3 % (20.0-40.0) 11/23/18 11:36 [place] % (Auto) 8.1 % (0.0-10.0) 11/23/18 11:36 Eos % (Auto) 2.7 % (0.0-4.0) 11/23/18 11:36 Baso % (Auto) 0.5 % (0.0-2.0) 11/23/18 11:36 Neut # (Auto) 4.0 K/uL (1.8-7.0) 11/23/18 11:36 Lymph # (Auto) 1.2 K/uL (1.0-4.3) 11/23/18 11:36 [place] # (Auto) 0.5 K/uL (0.0-0.8) 11/23/18 11:36 Eos # (Auto) 0.2 K/uL (0.0-0.7) 11/23/18 11:36 Baso # (Auto) 0.0 K/uL (0.0-0.2) 11/23/18 11:36 PT 11.3 SECONDS (9.7-12.2) 11/19/18 16:17 INR 1.0 11/19/18 16:17 APTT 32 SECONDS (21-34) 11/19/18 16:17 Sodium 132 mmol/L (132-148) 11/23/18 11:36 Potassium 3.8 mmol/L (3.6-5.2) 11/23/18 11:36 Chloride 96 mmol/L (98-107) L 11/23/18 11:36 Carbon Dioxide 28 mmol/L (22-30) 11/23/18 11:36 Anion Gap 12 (10-20) 11/23/18 11:36 BUN 31 mg/dL (9-20) H 11/23/18 11:36 Creatinine 1.0 mg/dL (0.8-1.5) 11/23/18 11:36 Est GFR ( Amer) > 60 11/23/18 11:36 Est GFR (Non-Af Amer) > 60 11/23/18 11:36 POC Glucose (mg/dL) 339 mg/dL (65-110) H 11/24/18 16:27 Random Glucose 251 mg/dL (75-110) H D 11/23/18 11:36 Calcium 9.1 mg/dl (8.6-10.4) 11/23/18 11:36 Magnesium 1.8 mg/dL (1.6-2.3) 11/21/18 06:35 Total Bilirubin 0.4 mg/dL (0.2-1.3) 11/23/18 11:36 AST 52 U/L (17-59) 11/23/18 11:36 ALT 55 U/L (21-72) 11/23/18 11:36 Alkaline Phosphatase 155 U/L (38-126) H 11/23/18 11:36 Total Creatine Kinase 36 U/L (55-170) L 11/19/18 22:40 CK-MB (Mass) 1.13 ng/mL (0.0-3.38) 11/19/18 22:40 Troponin I 0.0120 ng/mL (0.00-0.120) 11/19/18 22:40 NT-Pro-B Natriuret Pep 3220 pg/mL (0-900) H 11/19/18 16:17 Total Protein 6.5 g/dL (6.3-8.3) 11/23/18 11:36 Albumin 3.6 g/dL (3.5-5.0) 11/23/18 11:36 Globulin 2.9 gm/dL (2.2-3.9) 11/23/18 11:36 Albumin/Globulin Ratio 1.2 (1.0-2.1) 11/23/18 11:36 Discharge Exam - Head Exam Head Exam: ATRAUMATIC, NORMAL INSPECTION, NORMOCEPHALIC Discharge Plan - Follow Up Plan Condition: GOOD Disposition: HOME/ ROUTINE Instructions: Chest Pain, Heart Failure, Adult (DC) Additional Instructions: FOLLOW UP WITH DR GORDILLO IN HIS OFFICE -----CALL FOR APPOINTMENT FOLLOW UP WITH DR LANG IN HIS OFFICE ----CALL FOR APPOINTMENT FOLLOW UP WITH DR HOMAR HUANG ----CALL FOR APPOINTMENT ADDRESS YOUR ICD AT YOUR VISIT CONTINUE HOME MEDICATION ACTIVITY TOLERATED CALL DR GORDILLO OR DR ZHENG OR GO TO THE EMERGENCY ROOM IF SYMPTOM RETURN OR WORSENING Referrals: Arsenio Lang MD [Staff Provider] - Esau Gordillo MD [Staff Provider] -
--- NOTE | 2018-11-25 00:13 | CP.PCM.PN ---
Subjective - Date & Time of Evaluation Date of Evaluation: 11/24/18 Time of Evaluation: 14:15 - Subjective Subjective: dictated Objective - Vital Signs/Intake and Output Vital Signs (last 24 hours): Temp Pulse Resp BP Pulse Ox 97.4 F L 93 H 20 97/60 L 97 11/24/18 15:43 11/24/18 15:43 11/24/18 15:43 11/24/18 15:43 11/24/18 15:43 - Labs Labs: 11/23/18 11:36 11/23/18 11:36 PT 11.3 SECONDS (9.7-12.2) 11/19/18 16:17 INR 1.0 11/19/18 16:17 APTT 32 SECONDS (21-34) 11/19/18 16:17
--- NOTE | 2018-11-25 02:00 | CON ---
DATE: 11/24/2018 CONSULTATION SERVICE: Clinical cardiac electrophysiology. PHYSICIAN PERFORMING CONSULT: William Mena MD PHYSICIAN REQUESTING CONSULT: Arsenio Lang MD REASON FOR CONSULTATION: Ischemic cardiomyopathy. HISTORY OF PRESENT ILLNESS: Mr. Felice Schultz is a very pleasant 63-year-old male with a history of coronary artery disease, status post LAD, PCI, and stent in 12/2017, repeat catheterization in 08/2018 without any further intervention, development of ischemic cardiomyopathy with LV ejection fraction of 25% to 30% noted on the echocardiogram in 08/[address] [facility], diabetes, hypertension, HIV with a now undetectable viral load, no appreciable sinus node dysfunction, and a narrow QRS of 95 msec [address] presented to [facility] with shortness of breath. Over the course of the last 2 to 3 months, the patient has had recurrent episodes of congestive heart failure and has now class 2 to 3 congestive heart failure. He has been taking his medications including beta-blockers and an ARB as well as aspirin and Plavix without fail. He denies any palpitations. He denies any lightheadedness or syncope. He has been followed as an outpatient by Dr. Gonzales for Internal Medicine as well as Dr. Arsenio Lang for Cardiology. He currently feels well. Telemetry demonstrates normal sinus rhythm. EKG also demonstrates normal sinus rhythm as mentioned with normal MD interval. His sinus rates have all been reasonable without any signs of sinus node dysfunction. His QRS as mentioned is about 90 msec. REVIEW OF SYSTEMS: A comprehensive 10-point review of system was performed and notable for what was seen above. FAMILY HISTORY AND SOCIAL HISTORY: Reviewed and noncontributory. PHYSICAL EXAMINATION: VITAL SIGNS: The patient's blood pressure is 124/74, heart rate of 81, respiratory rate of 12. GENERAL: The patient is alert, oriented, conversant. NECK: Supple. PULMONARY: Lungs are clear. GASTROINTESTINAL: Abdomen is soft. EXTREMITIES: No edema. CARDIOVASCULAR: Regular S1 and S2. No murmurs. SKIN: No rashes. NEUROLOGIC: Grossly intact. PSYCHIATRIC: Normal affect. LABORATORY DATA: Lab [facility], the patient has lab work from today which demonstrates a white count of 5.9, platelets of 209, hemoglobin 11.7. Sodium 132, creatinine 1. Echocardiogram is pending today. ASSESSMENT AND PLAN: In summary, Mr. Schultz has presumably longstanding ischemic cardiomyopathy and stable coronary artery disease with his last stent, I believe in 12/2017. He continues to have cardiomyopathy and class 2 to 3 heart failure. I discussed with the patient at length, the risks of ventricular arrhythmia and sudden cardiac arrest in individuals with cardiomyopathy. He has an echocardiogram pending. If it continues to demonstrate an LV ejection fraction less than 35%, despite his optimal medical therapy over the course of the last 3 to 6 months, he is a candidate for a primary prevention internal cardioverter defibrillator as he has not shown improvement. I discussed with him the concept of the internal cardioverter defibrillator as well as the rationale, procedure, risks, and benefits. I have also discussed with the patient regarding the potential options of the defibrillator which include the standard transvenous system as well as the newer subcutaneous defibrillator. As the patient does not have the pacing indication and has a narrow QRS without any signs of sinus node dysfunction, perhaps a subcutaneous defibrillator would be reasonable in this relatively young patient. The benefit of such device would be a lower risk of infection as there is no transvenous component. I discussed at length with the patient and also called and spoke with the patient's son. For now, the echo is pending, and we will make our decision based on that. Ultimately, if the echo continues to demonstrate LV ejection fraction less than 35%, then I will have him scheduled to have a defibrillator implantation performed at [facility] in the upcoming weeks. The number to reach him is [phone] and his son Carrington was reached at [phone]. Thank you very much for allowing me to participate in the care of this patient. William Mena MD
--- NOTE | 2018-11-25 15:27 | DS ---
DISCHARGE DIAGNOSES: 1. Acute exacerbation of systolic heart failure. 2. Ischemic cardiomyopathy. 3. Hypertension. 4. Hyperlipidemia. 5. Type 2 diabetes. HOSPITAL COURSE: This is a 63-year-old male, well known to me with history of coronary artery disease, status post multiple stents, hypertension, hyperlipidemia, type 2 diabetes, congestive heart failure with multiple hospitalizations, came in because of shortness of breath, orthopnea, PND, dyspnea on exertion. He was found to have an acute systolic heart failure with fluid overload and the patient was started on diuretics, intake and output, daily body weight. Cardiac enzymes x3 were negative. The patient was diuresed. He felt better. 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 The patient is feeling well. His medications have been optimized. I have raised his dose of insulin, he is already on aspirin, statin, beta-blockers, and SATINDER inhibitors. The patient is for discharge with outpatient followup. CONDITION UPON DISCHARGE: Stable. Esau Gordillo MD
--- NOTE | 2018-11-28 14:40 | PQF ---
PROVIDER RESPONSE TEXT: Provider was unable to determine a response for this query. REVIEWER QUERY TEXT: HIV Clarification and Associated Conditions HIV (Human immunodeficiency virus) is documented in the medical record. Please specify the type Such as: -- Acquired immune deficiency syndrome [AIDS] -- GCMX-ivmradr-kswcrgr complex [ARC] -- Symptomatic -- Asymptomatic -- With current or previous HIV-related condition (please specify related condition) -- Exposure to HIV -- Inconclusive serologic evidence of HIV -- Other, please specify Also please include any associated conditions, if applicable. The patient's Clinical Indicators include: Query created by: Augusta Sood on 11/25/2018 8:21 PM Electronically signed by: Esau Gordillo MD 11/28/2018 2:36 PM
== END 2018-11-24 18:15 | disposition home or self-care (01) | DRG 127 ==
LOC: C.ER 15:00 → UNDOADMOB 17:18 → C.9E 17:18 → C.5S 18:03 → INTOOBSV 22:19 → OBSVTOIN 22:19 → C.9E 11-21 22:19 → C.5S 11-21 22:19
PROVIDERS: ADMIT Internal Medicine; ATTEND Internal Medicine
DX: I11.0 Hypertensive heart disease with heart failure (principal); I50.23 Acute on chronic systolic (congestive) heart failure; E11.65 Type 2 diabetes mellitus with hyperglycemia; J44.9 Chronic obstructive pulmonary disease, unspecified; I25.5 Ischemic cardiomyopathy; Z21 Asymptomatic human immunodeficiency virus [HIV] infection status; E78.5 Hyperlipidemia, unspecified; I25.10 Atherosclerotic heart disease of native coronary artery without angina pectoris; E78.00 Pure hypercholesterolemia, unspecified; Z79.4 Long term (current) use of insulin; Z79.82 Long term (current) use of aspirin; Z82.49 Family history of ischemic heart disease and other diseases of the circulatory system; Z83.3 Family history of diabetes mellitus; Z87.891 Personal history of nicotine dependence; Z95.5 Presence of coronary angioplasty implant and graft

== ENCOUNTER 2018-12-10 21:08 | Inpatient (IN) | payer OTHER ==
--- NOTE | 2018-12-10 21:37 | C.PDOC ---
History Of Present Illness 63 y/o M c PMHx CHF p/w shortness of breath x 3 days, gradually worsening to today associated with leg swelling. Feels like previous CHF exacerbations. Denies fever, chest pain, nausea, vomiting. Sleeping on 2 pillows at night, sometimes diaphoretic. Scheduled for echo and perhaps ICD at [place] this week. Sees Delilah when at [place]. Time Seen by Provider: 12/10/18 21:24 Chief Complaint (Nursing): Shortness Of Breath Past Medical History Vital Signs: Last Vital Signs Temp 98.7 F 12/10/18 21:22 Pulse 113 H 12/10/18 21:12 Resp 14 12/10/18 21:25 BP 136/91 H 12/10/18 21:12 Pulse Ox 95 12/10/18 21:25 - Medical History PMH: Arthritis, Bronchitis, CAD, COPD (bronchitis), Diabetes, HIV (undetectable), HTN, Hypercholesterolemia, Chronic Kidney Disease Surgical History: Coronary Stent (cardiac cath with stent placement) Denies: Pacemaker - [facility] Procedures DILATION OF 1 COR ART WITH DRUG-ELUT INTRA, PERC APPROACH (08/16/17) FLUOROSCOPY OF LEFT HEART USING LOW OSMOLAR CONTRAST (12/24/17) FLUOROSCOPY OF MULT COR ART USING L OSM CONTRAST (08/09/18) FLUOROSCOPY OF RIGHT AND LEFT HEART USING L OSM CONTRAST (08/09/18) MEASURE CARDIAC SAMPL & PRESSURE, BILATERAL, PERC (08/09/18) MEASURE OF CARDIAC SAMPL & PRESSURE, L HEART, PERC APPROACH (12/24/17) MEASUREMENT OF ARTERIAL PRESSURE, CORONARY, PERC APPROACH (08/16/17) ULTRASONOGRAPHY OF RIGHT AND LEFT HEART, TRANSESOPHAGEAL (09/10/16) Family History: States: Diabetes, Hypertension - Social History Hx Tobacco Use: Yes (1/2 pack daily) Hx Alcohol Use: No Hx Substance Use: No - Immunization History Hx Tetanus Toxoid Vaccination: No Hx Influenza Vaccination: No Hx Pneumococcal Vaccination: No Review Of Systems Except As Marked, All Systems Reviewed And Found Negative. Constitutional: Negative for: Fever Cardiovascular: Negative for: Chest Pain Physical Exam - Physical Exam Additional Physical Exam Comments: Constitutional: No acute distress. Head: Normocephalic. Atraumatic. Eyes: PERRL. ENT: Moist mucous membranes. Neck: Supple. Cardiovascular: Tachycardic. Chest: No tenderness. Respiratory: Bibasilar crackles. 95% on NC. GI: Soft. Nontender. Nondistended. Back: No CVA tenderness. Musculoskeletal: Pitting edema. Skin: No rash. Neurologic: Alert, no focal deficit. ED Course And Treatment - Laboratory Results Result Diagrams: 12/10/18 21:41 12/10/18 21:41 O2 Sat by Pulse Oximetry: 95 Medical Decision Making Medical Decision Making: EKG sinus rhythm, 110 bpm, no ST elevations. CXR pulmonary edema. Dr. Gordillo accepts patient to his service. Disposition - Disposition Disposition: HOSPITALIZED Disposition Time: 22:25 Condition: GUARDED Forms: [facility] (Welsh) - Clinical Impression Clinical Impression: CHF exacerbation
[2018-12-10 21:44] LABS: BASO # 0.1 K/uL (0.0-0.2); BASO % 0.8 % (0.0-2.0); EOS # 0.1 K/uL (0.0-0.7); EOS % 2.1 % (0.0-4.0); HEMOGLOBIN 11.4 g/dL (12.0-18.0); LYMPH # 1.1 K/uL (1.0-4.3); LYMPH % 16.6 % (20.0-40.0); MEAN CELL VOLUME 82.6 fL (80.0-94.0); MEAN CORPUSCULAR HEMOGLOBIN 27.2 pg (27.0-31.0); MEAN CORPUSCULAR HGB CONC 32.9 g/dL (33.0-37.0); MEAN PLATELET VOLUME 8.6 fL (7.2-11.7); MONO # 0.4 K/uL (0.0-0.8); MONO % 5.8 % (0.0-10.0); NEUT # 5.1 K/uL (1.8-7.0); NEUT % 74.7 % (50.0-75.0); RBC 4.18 Mil/uL (4.40-5.90); RED CELL DISTRIBUTION WIDTH 15.8 % (11.5-14.5); WHITE BLOOD COUNT 6.8 K/uL (4.8-10.8)
[2018-12-10 21:53] LABS: PROTHROMBIN TIME 11.4 SECONDS (9.7-12.2)
[2018-12-10 22:08] LABS: ALB/GLOB RATIO 1.2 (1.0-2.1); ALBUMIN 3.7 g/dL (3.5-5.0); ALT/SGPT 41 U/L (21-72); AST/SGOT 32 U/L (17-59); BLOOD UREA NITROGEN 19 mg/dL (9-20); CALCIUM 9.1 mg/dl (8.6-10.4); GFR NON-AFRICAN AMERICAN > 60
[2018-12-10 22:09] LABS: B-TYPE NATRIURETIC PEPTIDE 3810 pg/mL (0-900); CK-MB 1.53 ng/mL (0.0-3.38)
[2018-12-11 02:57] VITALS: BMI 23.1
[2018-12-11 05:54] LABS: CK-MB 1.05 ng/mL (0.0-3.38)
[2018-12-11] MEDS: Albuterol-Ipratrop 3 mg / 0.5 (3 ml) UD INH SCH ×3 (07:30→19:40)
--- NOTE | 2018-12-11 07:52 | CP.PCM.CON ---
<RiriLynnerichcricket - Last Filed: 12/11/18 08:50> History of Present Illness - History of Present Illness History of Present Illness: Luba Menezes, PGY-1, Cardiology Consult Note for Dr. Lang 63 year old male with past medical history of HTN, DM, HLD, HIV, Hep C, and CAD with stent, tobacco abuse, and CHF presents with shortness of breath for 3 days. Patient reports shortness of breath started 3 days ago and worsened over the past few days. Yesterday, after his breakfast of oatmeal, coffee, and toast, he was walking home and started to feel short of breath. He reports shortness of breath is worse with laying on his back and with exertion and improved with laying on his stomach. Patient reports bilateral lower extremity edema but denies chest pain, nausea, diaphoresis, left arm pain, jaw pain. PMH: as stated above PSH: denies FMHx: mother had unknown heart condition SHx: 2-3 cigarettes currently. 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 Lang 4 prior cardiac catheterizations: stent of mid LAD in 08/2017, last cardiac catheterization was in 08/2018 Last stress test: 08/2017: small area of infarction in LAD Review of Systems - Review of Systems Review of Systems: except as mentioned in HPI Past Patient History - Infectious Disease Hx of Infectious Diseases: None - Past Medical History & Family History Past Medical History?: Yes - Past Social History Smoking Status: Light Smoker < 10 Cigarettes Daily - CARDIAC Hx Hypercholesterolemia: Yes Hx Hypertension: Yes Hx Pacemaker: No - PULMONARY Hx Bronchitis: Yes Hx Chronic Obstructive Pulmonary Disease (COPD): Yes (bronchitis) - NEUROLOGICAL HX Cerebrovascular Accident: No - HEENT Hx HEENT Problems: No - RENAL Hx Chronic Kidney Disease: Yes - ENDOCRINE/METABOLIC Hx Diabetes Mellitus Type 2: Yes - HEMATOLOGICAL/ONCOLOGICAL Hx Human Immunodeficiency Virus (HIV): Yes (undetectable) - INTEGUMENTARY Hx Dermatological Problems: No - MUSCULOSKELETAL/RHEUMATOLOGICAL Hx Arthritis: Yes - GASTROINTESTINAL Hx Gastrointestinal Disorders: No - GENITOURINARY/GYNECOLOGICAL Hx Genitourinary Disorders: No - PSYCHIATRIC Hx Substance Use: No - SURGICAL HISTORY Hx Coronary Stent: Yes (cardiac cath with stent placement) - ANESTHESIA Hx Anesthesia: Yes Hx Anesthesia Reactions: No Hx Malignant Hyperthermia: No Meds Allergies/Adverse Reactions: Allergies Allergy/AdvReac Type Severity Reaction Status Date / Time No Known Allergies Allergy Verified 12/10/18 21:18 - Medications Medications: Current Medications Albuterol/Ipratropium (Duoneb 3 Mg/0.5 Mg (3 Ml) Ud) 3 ml INH RQ6 [facility] Aspirin (Aspirin Chewable) 81 mg PO DAILY [facility] Clopidogrel Bisulfate (Plavix) 75 mg PO DAILY [facility] Furosemide (Lasix) 40 mg IVP DAILY [facility] Gabapentin (Neurontin) 400 mg PO TID [facility] Home Med (Patient's Own Injectable) 16 unit SC BID [facility] Insulin Aspart (Novolog) 0 unit SC ACHS [facility]; Protocol Losartan Potassium (Cozaar) 100 mg PO DAILY [facility] Magnesium Oxide (Mag-Ox) 400 mg PO DAILY [facility] Metformin HCl (Glucophage) 1,000 mg PO BIDCC [facility] Metoprolol Succinate (Toprol Xl) 25 mg PO DAILY [facility] Nicotine (Nicoderm Cq) 1 patch TD DAILY [facility] Rosuvastatin Calcium (Crestor) 10 mg PO HS [facility] Physical Exam - Constitutional Appears: Well, Non-toxic, No Acute Distress - Head Exam Head Exam: ATRAUMATIC, NORMAL INSPECTION, NORMOCEPHALIC - Eye Exam Eye Exam: EOMI, PERRL - ENT Exam ENT Exam: Mucous Membranes Moist - Respiratory Exam Respiratory Exam: NORMAL BREATHING PATTERN Additional comments: crackles at bilateral bases - Cardiovascular Exam Cardiovascular Exam: REGULAR RHYTHM, RRR, +S1, +S2 - GI/Abdominal Exam GI & Abdominal Exam: Normal Bowel Sounds, Soft. absent: Tenderness - Extremities Exam Extremities exam: Positive for: full ROM, normal inspection, pedal edema - Neurological Exam Neurological exam: Alert, CN II-XII Intact, Oriented x3 - Skin Skin Exam: Dry, Intact, Normal Color Results - Vital Signs Recent Vital Signs: Last Vital Signs Temp 98.1 F 12/11/18 02:57 Pulse 84 12/11/18 02:57 Resp 20 12/11/18 02:57 BP 120/71 12/11/18 02:57 Pulse Ox 96 12/11/18 02:57 - Labs Result Diagrams: 12/10/18 21:41 12/10/18 21:41 Labs: Laboratory Results - last 24 hr 12/10/18 12/10/18 12/10/18 21:20 21:41 21:41 WBC 6.8 RBC 4.18 L Hgb 11.4 L Hct 34.5 L MCV 82.6 MCH 27.2 MCHC 32.9 L RDW 15.8 H Plt Count 205 MPV 8.6 Neut % (Auto) 74.7 Lymph % (Auto) 16.6 L Saline % (Auto) 5.8 Eos % (Auto) 2.1 Baso % (Auto) 0.8 Neut # (Auto) 5.1 Lymph # (Auto) 1.1 Saline # (Auto) 0.4 Eos # (Auto) 0.1 Baso # (Auto) 0.1 PT 11.4 INR 1.0 APTT 31 Sodium Potassium Chloride Carbon Dioxide Anion Gap BUN Creatinine Est GFR ( Amer) Est GFR (Non-Af Amer) POC Glucose (mg/dL) 199 H Random Glucose Calcium Phosphorus Magnesium Total Bilirubin AST ALT Alkaline Phosphatase Total Creatine Kinase CK-MB (Mass) Troponin I NT-Pro-B Natriuret Pep Total Protein Albumin Globulin Albumin/Globulin Ratio 12/10/18 12/11/18 21:41 05:25 WBC RBC Hgb Hct MCV MCH MCHC RDW Plt Count MPV Neut % (Auto) Lymph % (Auto) Saline % (Auto) Eos % (Auto) Baso % (Auto) Neut # (Auto) Lymph # (Auto) Saline # (Auto) Eos # (Auto) Baso # (Auto) PT INR APTT Sodium 135 Potassium 4.1 Chloride 103 Carbon Dioxide 26 Anion Gap 10 BUN 19 Creatinine 0.8 Est GFR ( Amer) > 60 Est GFR (Non-Af Amer) > 60 POC Glucose (mg/dL) Random Glucose 197 H D Calcium 9.1 Phosphorus 3.4 Magnesium 1.7 Total Bilirubin 0.6 AST 32 ALT 41 Alkaline Phosphatase 132 H Total Creatine Kinase 69 44 L CK-MB (Mass) 1.53 1.05 Troponin I < 0.0120 < 0.0120 NT-Pro-B Natriuret Pep 3810 H Total Protein 6.7 Albumin 3.7 Globulin 3.0 Albumin/Globulin Ratio 1.2 Assessment & Plan (1) CHF exacerbation Assessment and Plan: Last echocardiogram in 08/2018: LVEF of 25-30%, global hypokinesis of left ventricle, grade II pseudonormal filling dynameics, LV filling pressure is moderately increased, LA moderately dilated, mild MR, mod TR, RVSP is 50-60 Continue toprol, cozaar, lasix Status: Acute (2) CAD (coronary artery disease), [place] coronary artery Assessment and Plan: Prior LAD stent placed in 2017 Continue aspirin, plavix, crestor, toprol, cozaar Status: Acute (3) Diabetes Assessment and Plan: Last HgbA1c on 10/29/18 was 7.2 Continue metformin, sliding scale insulin Status: Chronic (4) Hyperlipidemia Assessment and Plan: Last lipid panel on 10/29/18 was unremarkable Continue crestor Status: Chronic (5) Hypertension Assessment and Plan: Patient currently normotensive Continue toprol, cozaar Status: Chronic (6) HIV antibody positive Assessment and Plan: Follow recommendations as per primary team Status: Chronic - Date & Time Date: 12/11/18 Time: 07:53 <Arsenio Lang - Last Filed: 12/14/18 08:27> Meds - Medications Medications: Current Medications Acetaminophen (Tylenol 325mg Tab) 650 mg PO Q6 PRN PRN Reason: Pain, moderate (4-7) Last Admin: 12/13/18 23:47 Dose: 650 mg Albuterol/Ipratropium (Duoneb 3 Mg/0.5 Mg (3 Ml) Ud) 3 ml INH RQ6 [facility] Last Admin: 12/14/18 01:17 Dose: 3 ml Aspirin (Aspirin Chewable) 81 mg PO DAILY [facility] Last Admin: 12/13/18 09:15 Dose: 81 mg Clopidogrel Bisulfate (Plavix) 75 mg PO DAILY [facility] Last Admin: 12/13/18 09:15 Dose: 75 mg Famotidine (Pepcid) 20 mg PO DAILY [facility] Last Admin: 12/13/18 09:16 Dose: 20 mg Furosemide (Lasix) 40 mg IVP DAILY [facility] Last Admin: 12/13/18 09:23 Dose: 40 mg Gabapentin (Neurontin) 400 mg PO TID [facility] Last Admin: 12/13/18 17:09 Dose: 400 mg Heparin Sodium (Porcine) (Heparin) 5,000 units SC Q8 [facility] Last Admin: 12/14/18 06:25 Dose: 5,000 units Insulin Aspart (Novolog) 0 unit SC ACHS [facility]; Protocol Last Admin: 12/14/18 08:00 Dose: 4 units Insulin Aspart (Novolog Mix 70/30 (70/30 Units/Ml)) 16 units SC DAILY@0745,1645 [facility] Last Admin: 12/14/18 08:00 Dose: 16 units Losartan Potassium (Cozaar) 100 mg PO DAILY [facility] Last Admin: 12/13/18 09:16 Dose: 100 mg Magnesium Oxide (Mag-Ox) 400 mg PO DAILY [facility] Last Admin: 12/13/18 09:15 Dose: 400 mg Metformin HCl (Glucophage) 1,000 mg PO BIDCC [facility] Last Admin: 12/14/18 08:00 Dose: 1,000 mg Metoprolol Succinate (Toprol Xl) 25 mg PO DAILY [facility] Last Admin: 12/13/18 09:15 Dose: 25 mg Nicotine (Nicoderm Cq) 1 patch TD DAILY [facility] Last Admin: 12/13/18 09:16 Dose: 1 patch Rosuvastatin Calcium (Crestor) 10 mg PO HS [facility] Last Admin: 12/13/18 22:12 Dose: 10 mg Results - Vital Signs Recent Vital Signs: Last Vital Signs Temp 97.7 F 12/14/18 07:15 Pulse 94 H 12/14/18 07:15 Resp 20 12/14/18 07:15 BP 125/80 12/14/18 07:15 Pulse Ox 100 12/14/18 07:15 - Labs Result Diagrams: 12/10/18 21:41 12/10/18 21:41 Labs: Laboratory Results - last 24 hr 12/13/18 12/13/18 12/13/18 12:05 16:13 21:41 POC Glucose (mg/dL) 160 H 201 H 143 H Attending/Attestation - Attestation I have personally seen and examined this patient.: Yes I have fully participated in the care of the patient.: Yes I have reviewed all pertinent clinical information: Yes
[2018-12-11] MEDS: (Novolog) Insulin Aspart, Recombinant 100 u/ml 10 ml vial SC SCH ×4 (08:08→21:28)
[2018-12-11] MEDS: Metoprolol Succinate 25 mg XL Tab PO SCH (09:57)
[2018-12-11] MEDS: Magnesium Oxide 400 mg Tab UD PO SCH (09:58)
--- NOTE | 2018-12-11 11:03 | RAD ---
Date of service: 12/10/2018 HISTORY: dyspnea COMPARISON: 11/19/2018 FINDINGS: LUNGS: The lungs are well inflated. There is confluent airspace disease in the right lower lobe. There is mild pulmonary venous congestion. PLEURA: Small right pleural effusion. No pneumothorax CARDIOVASCULAR: Mild cardiomegaly. There are aortic atherosclerotic calcifications present. OSSEOUS STRUCTURES: Within normal limits for the patient's age. VISUALIZED UPPER ABDOMEN: Normal. OTHER FINDINGS: None. IMPRESSION: Suspect right lower lobe pneumonia and small right pleural effusion. Follow-up after medical management is recommended to ensure complete resolution. The final report is tagged to the PA review folder.
[2018-12-11 12:24] LABS: CK-MB 1.22 ng/mL (0.0-3.38); TROPONIN I 0.017 ng/mL (0.00-0.120)
[2018-12-11] MEDS: (Novolog Mix 70/30) Insulin Aspart/Insulin Aspar 100 units/ml SC SCH (16:59)
--- NOTE | 2018-12-11 20:13 | CP.PCM.HP ---
Present on Admission - Present on Admission Any Indicators Present on Admission: Yes History of Uncontrolled Diabetes: Yes Past Patient History - Infectious Disease Hx of Infectious Diseases: None - Past Medical History & Family History Past Medical History?: Yes - Past Social History Smoking Status: Light Smoker < 10 Cigarettes Daily - CARDIAC Hx Hypercholesterolemia: Yes Hx Hypertension: Yes Hx Pacemaker: No - PULMONARY Hx Bronchitis: Yes Hx Chronic Obstructive Pulmonary Disease (COPD): Yes (bronchitis) - NEUROLOGICAL HX Cerebrovascular Accident: No - HEENT Hx HEENT Problems: No - RENAL Hx Chronic Kidney Disease: Yes - ENDOCRINE/METABOLIC Hx Diabetes Mellitus Type 2: Yes - HEMATOLOGICAL/ONCOLOGICAL Hx Human Immunodeficiency Virus (HIV): Yes (undetectable) - INTEGUMENTARY Hx Dermatological Problems: No - MUSCULOSKELETAL/RHEUMATOLOGICAL Hx Arthritis: Yes - GASTROINTESTINAL Hx Gastrointestinal Disorders: No - GENITOURINARY/GYNECOLOGICAL Hx Genitourinary Disorders: No - PSYCHIATRIC Hx Substance Use: No - SURGICAL HISTORY Hx Coronary Stent: Yes (cardiac cath with stent placement) - ANESTHESIA Hx Anesthesia: Yes Hx Anesthesia Reactions: No Hx Malignant Hyperthermia: No Meds Allergies/Adverse Reactions: Allergies Allergy/AdvReac Type Severity Reaction Status Date / Time No Known Allergies Allergy Verified 12/10/18 21:18 Results - Vital Signs Recent Vital Signs: Last Vital Signs Temp 97.8 F 12/11/18 16:00 Pulse 84 12/11/18 18:00 Resp 10 L 12/11/18 16:04 BP 128/80 12/11/18 16:04 Pulse Ox 97 12/11/18 16:00 - Labs Result Diagrams: 12/10/18 21:41 12/10/18 21:41 Labs: Laboratory Results - last 24 hr 12/10/18 12/10/18 12/10/18 21:20 21:41 21:41 WBC 6.8 RBC 4.18 L Hgb 11.4 L Hct 34.5 L MCV 82.6 MCH 27.2 MCHC 32.9 L RDW 15.8 H Plt Count 205 MPV 8.6 Neut % (Auto) 74.7 Lymph % (Auto) 16.6 L Centre % (Auto) 5.8 Eos % (Auto) 2.1 Baso % (Auto) 0.8 Neut # (Auto) 5.1 Lymph # (Auto) 1.1 Centre # (Auto) 0.4 Eos # (Auto) 0.1 Baso # (Auto) 0.1 PT 11.4 INR 1.0 APTT 31 Sodium Potassium Chloride Carbon Dioxide Anion Gap BUN Creatinine Est GFR ( Amer) Est GFR (Non-Af Amer) POC Glucose (mg/dL) 199 H Random Glucose Calcium Phosphorus Magnesium Total Bilirubin AST ALT Alkaline Phosphatase Total Creatine Kinase CK-MB (Mass) Troponin I NT-Pro-B Natriuret Pep Total Protein Albumin Globulin Albumin/Globulin Ratio 12/10/18 12/11/18 12/11/18 21:41 05:25 11:54 WBC RBC Hgb Hct MCV MCH MCHC RDW Plt Count MPV Neut % (Auto) Lymph % (Auto) Centre % (Auto) Eos % (Auto) Baso % (Auto) Neut # (Auto) Lymph # (Auto) Centre # (Auto) Eos # (Auto) Baso # (Auto) PT INR APTT Sodium 135 Potassium 4.1 Chloride 103 Carbon Dioxide 26 Anion Gap 10 BUN 19 Creatinine 0.8 Est GFR ( Amer) > 60 Est GFR (Non-Af Amer) > 60 POC Glucose (mg/dL) Random Glucose 197 H D Calcium 9.1 Phosphorus 3.4 Magnesium 1.7 Total Bilirubin 0.6 AST 32 ALT 41 Alkaline Phosphatase 132 H Total Creatine Kinase 69 44 L 54 L CK-MB (Mass) 1.53 1.05 1.22 Troponin I < 0.0120 < 0.0120 0.0170 NT-Pro-B Natriuret Pep 3810 H Total Protein 6.7 Albumin 3.7 Globulin 3.0 Albumin/Globulin Ratio 1.2
[2018-12-12] MEDS: Albuterol-Ipratrop 3 mg / 0.5 (3 ml) UD INH SCH ×3 (01:35→20:00)
--- NOTE | 2018-12-12 05:23 | HP ---
CHIEF COMPLAINT: Shortness of breath for three days. HISTORY OF PRESENT ILLNESS: This is a 63-year-old male well known to me with history of coronary artery disease status post multiple stents, being followed up by Cardiology on outpatient basis. The patient after stents did not improve. He continued to have chest pain. He continued to have worsening of his heart condition with drop in his LV ejection fraction. Right now, his ejection fraction is low and he has congestive heart failure. He has chronic systolic heart failure with monthly hospitalization. His compliance with medication is unknown. His compliance with diet and followup is unknown. On the day of admission, he came because of three to four days he has been having dyspnea, dyspnea on exertion, orthopnea, PND, generalized weakness. No chest pain. No chest pressure. The patient is also a bit dizzier upon any movement. The patient denies any history of fever. He denies any history of dysuria, hematuria, pyuria. He denies any history of polyuria, polydipsia, polyphagia. He denies any history of hematuria, pyuria. He had nocturia. The patient uses two pillows for sleep or lying. He developed shortness of breath. He denies any joint pain or hip pain. He has tingling, numbness, and paresthesias to both feet. PAST MEDICAL HISTORY: COPD, coronary artery disease, congestive heart failure, diabetes, hypertension, hyperlipidemia, status post multiple coronary stents. SOCIAL HISTORY: He is an ex-smoker, ex-[employer] user. CURRENT MEDICATIONS: At home, he is supposed to be on Zocor, Nitrostat, Nicoderm CQ patch, Toprol XL, Glucophage, Cozaar, Humalog, Lasix, Plavix, aspirin, Combivir. PHYSICAL EXAMINATION: GENERAL: An elderly male in [id number] respiratory distress. VITAL SIGNS: Blood pressure 113/69, pulse 83, respiratory rate 21, temperature 97.8. SKIN: Senile turgor. No bruises. No purpura. No petechiae. No ecchymosis. HEENT: Atraumatic, normocephalic. Negative pallor. Negative jaundice. Extraocular movements are intact. NECK: Supple. Positive JVD. Negative thyromegaly. CHEST WALL: Bilateral symmetrical expansion. No tenderness . LUNGS: Clear. No rales. No rhonchi. CARDIOVASCULAR SYSTEM: PMI in the fifth intercostal space. S1, S2 plus S3 positive. ABDOMEN: Soft, nontender. Bowel sounds are positive. EXTREMITIES: No clubbing, cyanosis, or edema. GENITALIA AND RECTAL: Negative. CENTRAL NERVOUS SYSTEM: Awake, alert, oriented x3. Cranial nerves II-XII are normal. Power 5/5 x4. Plantars are downgoing. ASSESSMENT: 1. Acute exacerbation of chronic systolic heart failure due to ischemic heart disease, due to ischemic cardiomyopathy. 2. Coronary artery disease, status post stent. 3. Diabetes. 4. Hypertension. PLAN: Admit. Detailed orders are written. Seen and examined. Esau Gordillo MD
[2018-12-12] MEDS: (Novolog) Insulin Aspart, Recombinant 100 u/ml 10 ml vial SC SCH ×4 (08:39→22:04)
[2018-12-12] MEDS: (Novolog Mix 70/30) Insulin Aspart/Insulin Aspar 100 units/ml SC SCH ×2 (08:41→17:55)
[2018-12-12] MEDS: Metoprolol Succinate 25 mg XL Tab PO SCH (09:37)
[2018-12-12] MEDS: Magnesium Oxide 400 mg Tab UD PO SCH (09:37)
[2018-12-12 11:07] VITALS: RESP 20
--- NOTE | 2018-12-12 20:30 | CARD ---
APPROVED REPORT Date of service: 12/11/2018 EXAM: Two-dimensional and M-mode echocardiogram with Doppler and color Doppler. Other Information Quality : GoodRhythm : INDICATION Congestive Heart Failure Surgery/Intervention ICD/Pacemaker: 2D DIMENSIONS IVSd1.5 (0.7-1.1cm)LVDd6.2 (3.9-5.9cm) PWd1.2 (0.7-1.1cm)LA Mcaror642 (18-58mL) LVDs5.1 (2.5-4.0cm)FS (%) 16.8 % LVEF (%)34.4 (>50%)LVEF (Uribe's)32.07 % IVC0.00 cm M-Mode DIMENSIONS RVDd2.46 (2.1-3.2cm)Left Atrium (MM)4.61 (2.5-4.0cm) IVSd0.94 (0.7-1.1cm)Aortic Root4.21 (2.2-3.7cm) LVDd7.34 (4.0-5.6cm)Aortic Cusp Exc.2.48 (1.5-2.0cm) PWd0.86 (0.7-1.1cm)FS (%) 28 % LVDs5.27 (2.0-3.8cm)TAPSE21.26 cm Aortic Valve AI P 1/2 [id number] Mitral Valve MV E Qvpjexsj195.4cm/sMV A Pmjtxhio779.9cm/sE/A ratio0.9 SEUL325.68 cm/s TDI Lateral E' Peak V4.29cm/sMedial E' Peak V4.48cm/sE/Lateral E'23.9 E/Medial E'22.9 Tricuspid Valve TR Peak Hkgiaqkz790yy/sTR Peak Gr.[id number] LEFT VENTRICLE The left ventricle is normal size. There is normal left ventricular wall thickness. Left ventricle systolic function is moderately impaired. The Ejection Fraction is 30-35%. There is moderate global hypokinesis of the left ventricle. Tissue Doppler imaging reveals abnormal left ventricular diastolic dysfunction. RIGHT VENTRICLE The right ventricle is normal size. There is normal right ventricular wall thickness. Systolic function is moderately reduced. There is a pacemaker lead in the right ventricle. There is a mass versus an artifact suspected in the right ventricle. ATRIA The left atrium size is normal. The right atrium size is normal. The interatrial septum is intact with no evidence for an atrial septal defect. AORTIC VALVE The aortic valve is normal in structure. There is trace aortic regurgitation. There is no aortic valvular stenosis. There is no aortic valvular vegetation. MITRAL VALVE The mitral valve is normal in structure. There is no evidence of mitral valve prolapse. There is no mitral valve stenosis. Mitral regurgitation is mild. TRICUSPID VALVE The tricuspid valve is normal in structure. There is moderate tricuspid regurgitation. Right ventricular systolic pressure is estimated at 30-40 mmHg. There is mild pulmonary hypertension. PULMONIC VALVE The pulmonic valve is not well visualized. There is no pulmonic valvular regurgitation. GREAT VESSELS The aortic root displays mild to moderate sclerocalcific changes of the aortic root. PERICARDIAL EFFUSION There is no significant pericardial effusion. <Conclusion> Left ventricle systolic function is moderately impaired. The Ejection Fraction is 30-35%. There is a pacemaker lead in the right ventricle. There is a mass versus an artifact suspected in the right ventricle. There is trace aortic regurgitation. Mitral regurgitation is mild. There is moderate tricuspid regurgitation. There is mild pulmonary hypertension. There is no pulmonic valvular regurgitation.
[2018-12-13] MEDS: Albuterol-Ipratrop 3 mg / 0.5 (3 ml) UD INH SCH ×3 (01:21→13:36)
[2018-12-13] MEDS: (Novolog) Insulin Aspart, Recombinant 100 u/ml 10 ml vial SC SCH ×4 (07:51→22:04)
[2018-12-13] MEDS: (Novolog Mix 70/30) Insulin Aspart/Insulin Aspar 100 units/ml SC SCH ×2 (07:52→17:10)
[2018-12-13] MEDS: Magnesium Oxide 400 mg Tab UD PO SCH (09:15)
[2018-12-13] MEDS: Metoprolol Succinate 25 mg XL Tab PO SCH (09:15)
--- NOTE | 2018-12-13 19:33 | CARD ---
APPROVED REPORT Date of service: 12/10/2018 EKG Measurement Heart [id number] <Conclusion> Sinus tachycardia w/ ns st t changes Possible Left atrial enlargement Septal infarct, age undetermined Abnormal ECG
--- NOTE | 2018-12-13 21:35 | PN ---
DATE: 12/13/2018 SUBJECTIVE: The patient is less short of breath. He has coughing, has some wheezing. NV is ruled out by 3 sets of negative cardiac enzymes. He has no cardiac arrhythmia. His ejection fraction is low. He is on diuretics, intake/output, daily body weight. PHYSICAL EXAMINATION: VITAL SIGNS: Blood pressure 131/68, pulse 70, respiratory rate 20, temperature 99. LUNGS: Bilateral basal crepitation. Decreased air entry. CARDIOVASCULAR: S1, S2 plus S4 and S3 positive. ABDOMEN: Soft, nontender. Bowel sounds are positive. EXTREMITIES: Legs +2 pitting edema. ASSESSMENT: 1. Acute exacerbation of systolic heart failure, acute on chronic. 2. Hypertension, controlled. 3. Poorly controlled diabetes. 4. Chronic obstructive pulmonary disease. PLAN: Continue diuretics, intake/output, daily body weight and Cardiology evaluation. Esau Gordillo MD
[2018-12-14] MEDS: Albuterol-Ipratrop 3 mg / 0.5 (3 ml) UD INH SCH ×3 (01:17→13:41)
--- NOTE | 2018-12-14 01:34 | CP.PCM.PN ---
Subjective - Date & Time of Evaluation Date of Evaluation: 12/13/18 Time of Evaluation: 08:40 - Subjective Subjective: dict Objective - Vital Signs/Intake and Output Vital Signs (last 24 hours): Temp Pulse Resp BP Pulse Ox 98.2 F 88 20 117/77 99 12/13/18 16:00 12/13/18 17:30 12/13/18 16:00 12/13/18 16:00 12/13/18 16:00 - Medications Medications: Current Medications Acetaminophen (Tylenol 325mg Tab) 650 mg PO Q6 PRN PRN Reason: Pain, moderate (4-7) Last Admin: 12/13/18 23:47 Dose: 650 mg Albuterol/Ipratropium (Duoneb 3 Mg/0.5 Mg (3 Ml) Ud) 3 ml INH RQ6 [facility] Last Admin: 12/14/18 01:17 Dose: 3 ml Aspirin (Aspirin Chewable) 81 mg PO DAILY [facility] Last Admin: 12/13/18 09:15 Dose: 81 mg Clopidogrel Bisulfate (Plavix) 75 mg PO DAILY [facility] Last Admin: 12/13/18 09:15 Dose: 75 mg Famotidine (Pepcid) 20 mg PO DAILY [facility] Last Admin: 12/13/18 09:16 Dose: 20 mg Furosemide (Lasix) 40 mg IVP DAILY [facility] Last Admin: 12/13/18 09:23 Dose: 40 mg Gabapentin (Neurontin) 400 mg PO TID [facility] Last Admin: 12/13/18 17:09 Dose: 400 mg Heparin Sodium (Porcine) (Heparin) 5,000 units SC Q8 [facility] Last Admin: 12/13/18 22:13 Dose: 5,000 units Insulin Aspart (Novolog) 0 unit SC ACHS [facility]; Protocol Last Admin: 12/13/18 22:04 Dose: Not Given Insulin Aspart (Novolog Mix 70/30 (70/30 Units/Ml)) 16 units SC DAILY@0745,1645 [facility] Last Admin: 12/13/18 17:10 Dose: 16 units Losartan Potassium (Cozaar) 100 mg PO DAILY [facility] Last Admin: 12/13/18 09:16 Dose: 100 mg Magnesium Oxide (Mag-Ox) 400 mg PO DAILY [facility] Last Admin: 12/13/18 09:15 Dose: 400 mg Metformin HCl (Glucophage) 1,000 mg PO BIDCC [facility] Last Admin: 12/13/18 17:09 Dose: 1,000 mg Metoprolol Succinate (Toprol Xl) 25 mg PO DAILY [facility] Last Admin: 12/13/18 09:15 Dose: 25 mg Nicotine (Nicoderm Cq) 1 patch TD DAILY [facility] Last Admin: 12/13/18 09:16 Dose: 1 patch Rosuvastatin Calcium (Crestor) 10 mg PO HS [facility] Last Admin: 12/13/18 22:12 Dose: 10 mg - Labs Labs: 12/10/18 21:41 12/10/18 21:41 PT 11.4 SECONDS (9.7-12.2) 12/10/18 21:41 INR 1.0 12/10/18 21:41 APTT 31 SECONDS (21-34) 12/10/18 21:41
--- NOTE | 2018-12-14 01:34 | CP.PCM.PN ---
Subjective - Date & Time of Evaluation Date of Evaluation: 12/12/18 Time of Evaluation: 08:40 - Subjective Subjective: dict Objective - Vital Signs/Intake and Output Vital Signs (last 24 hours): Temp Pulse Resp BP Pulse Ox 98.2 F 88 20 117/77 99 12/13/18 16:00 12/13/18 17:30 12/13/18 16:00 12/13/18 16:00 12/13/18 16:00 - Medications Medications: Current Medications Acetaminophen (Tylenol 325mg Tab) 650 mg PO Q6 PRN PRN Reason: Pain, moderate (4-7) Last Admin: 12/13/18 23:47 Dose: 650 mg Albuterol/Ipratropium (Duoneb 3 Mg/0.5 Mg (3 Ml) Ud) 3 ml INH RQ6 [facility] Last Admin: 12/14/18 01:17 Dose: 3 ml Aspirin (Aspirin Chewable) 81 mg PO DAILY [facility] Last Admin: 12/13/18 09:15 Dose: 81 mg Clopidogrel Bisulfate (Plavix) 75 mg PO DAILY [facility] Last Admin: 12/13/18 09:15 Dose: 75 mg Famotidine (Pepcid) 20 mg PO DAILY [facility] Last Admin: 12/13/18 09:16 Dose: 20 mg Furosemide (Lasix) 40 mg IVP DAILY [facility] Last Admin: 12/13/18 09:23 Dose: 40 mg Gabapentin (Neurontin) 400 mg PO TID [facility] Last Admin: 12/13/18 17:09 Dose: 400 mg Heparin Sodium (Porcine) (Heparin) 5,000 units SC Q8 [facility] Last Admin: 12/13/18 22:13 Dose: 5,000 units Insulin Aspart (Novolog) 0 unit SC ACHS [facility]; Protocol Last Admin: 12/13/18 22:04 Dose: Not Given Insulin Aspart (Novolog Mix 70/30 (70/30 Units/Ml)) 16 units SC DAILY@0745,1645 [facility] Last Admin: 12/13/18 17:10 Dose: 16 units Losartan Potassium (Cozaar) 100 mg PO DAILY [facility] Last Admin: 12/13/18 09:16 Dose: 100 mg Magnesium Oxide (Mag-Ox) 400 mg PO DAILY [facility] Last Admin: 12/13/18 09:15 Dose: 400 mg Metformin HCl (Glucophage) 1,000 mg PO BIDCC [facility] Last Admin: 12/13/18 17:09 Dose: 1,000 mg Metoprolol Succinate (Toprol Xl) 25 mg PO DAILY [facility] Last Admin: 12/13/18 09:15 Dose: 25 mg Nicotine (Nicoderm Cq) 1 patch TD DAILY [facility] Last Admin: 12/13/18 09:16 Dose: 1 patch Rosuvastatin Calcium (Crestor) 10 mg PO HS [facility] Last Admin: 12/13/18 22:12 Dose: 10 mg - Labs Labs: 12/10/18 21:41 12/10/18 21:41 PT 11.4 SECONDS (9.7-12.2) 12/10/18 21:41 INR 1.0 12/10/18 21:41 APTT 31 SECONDS (21-34) 12/10/18 21:41
--- NOTE | 2018-12-14 03:58 | PN ---
DATE: 12/14/2018 SUBJECTIVE: The patient is less short of breath, less orthopneic, less PND. No fever. No chills. PHYSICAL EXAMINATION: VITAL SIGNS: Blood pressure 117/77, pulse 84, respiratory rate 20, temperature 98.2. LUNGS: Bilateral basal crepitations. CARDIOVASCULAR: S1, S2, regular. ABDOMEN: Soft, nontender. Bowel sounds are positive. ASSESSMENT: 1. Exacerbation of congestive heart failure. 2. Diabetes. 3. Hypertension. PLAN: Repeat labs, diuretics, intake/output. Monitor the patient. Esau Gordillo MD
[2018-12-14 07:39] VITALS: TEMP 97.7; O2SAT 100
[2018-12-14] MEDS: (Novolog Mix 70/30) Insulin Aspart/Insulin Aspar 100 units/ml SC SCH ×2 (08:00→17:36)
[2018-12-14] MEDS: (Novolog) Insulin Aspart, Recombinant 100 u/ml 10 ml vial SC SCH ×3 (08:00→17:36)
--- NOTE | 2018-12-14 08:28 | CP.PCM.PN ---
Subjective - Date & Time of Evaluation Date of Evaluation: 12/14/18 Time of Evaluation: 08:27 - Subjective Subjective: CHF improving plan for AICD Objective - Vital Signs/Intake and Output Vital Signs (last 24 hours): Temp Pulse Resp BP Pulse Ox 97.7 F 94 H 20 125/80 100 12/14/18 07:15 12/14/18 07:15 12/14/18 07:15 12/14/18 07:15 12/14/18 07:15 - Medications Medications: Current Medications Acetaminophen (Tylenol 325mg Tab) 650 mg PO Q6 PRN PRN Reason: Pain, moderate (4-7) Last Admin: 12/13/18 23:47 Dose: 650 mg Albuterol/Ipratropium (Duoneb 3 Mg/0.5 Mg (3 Ml) Ud) 3 ml INH RQ6 [facility] Last Admin: 12/14/18 01:17 Dose: 3 ml Aspirin (Aspirin Chewable) 81 mg PO DAILY [facility] Last Admin: 12/13/18 09:15 Dose: 81 mg Clopidogrel Bisulfate (Plavix) 75 mg PO DAILY [facility] Last Admin: 12/13/18 09:15 Dose: 75 mg Famotidine (Pepcid) 20 mg PO DAILY [facility] Last Admin: 12/13/18 09:16 Dose: 20 mg Furosemide (Lasix) 40 mg IVP DAILY [facility] Last Admin: 12/13/18 09:23 Dose: 40 mg Gabapentin (Neurontin) 400 mg PO TID [facility] Last Admin: 12/13/18 17:09 Dose: 400 mg Heparin Sodium (Porcine) (Heparin) 5,000 units SC Q8 [facility] Last Admin: 12/14/18 06:25 Dose: 5,000 units Insulin Aspart (Novolog) 0 unit SC ACHS [facility]; Protocol Last Admin: 12/14/18 08:00 Dose: 4 units Insulin Aspart (Novolog Mix 70/30 (70/30 Units/Ml)) 16 units SC DAILY@4315,4295 [facility] Last Admin: 12/14/18 08:00 Dose: 16 units Losartan Potassium (Cozaar) 100 mg PO DAILY [facility] Last Admin: 12/13/18 09:16 Dose: 100 mg Magnesium Oxide (Mag-Ox) 400 mg PO DAILY [facility] Last Admin: 12/13/18 09:15 Dose: 400 mg Metformin HCl (Glucophage) 1,000 mg PO BIDCC [facility] Last Admin: 12/14/18 08:00 Dose: 1,000 mg Metoprolol Succinate (Toprol Xl) 25 mg PO DAILY [facility] Last Admin: 12/13/18 09:15 Dose: 25 mg Nicotine (Nicoderm Cq) 1 patch TD DAILY [facility] Last Admin: 12/13/18 09:16 Dose: 1 patch Rosuvastatin Calcium (Crestor) 10 mg PO HS [facility] Last Admin: 12/13/18 22:12 Dose: 10 mg - Labs Labs: 12/10/18 21:41 12/10/18 21:41 PT 11.4 SECONDS (9.7-12.2) 12/10/18 21:41 INR 1.0 12/10/18 21:41 APTT 31 SECONDS (21-34) 12/10/18 21:41 - Constitutional Appears: Well - Head Exam Head Exam: ATRAUMATIC, NORMAL INSPECTION, NORMOCEPHALIC - Eye Exam Eye Exam: EOMI, Normal appearance, PERRL Pupil Exam: NORMAL ACCOMODATION, PERRL - ENT Exam ENT Exam: Mucous Membranes Moist, Normal Exam - Neck Exam Neck Exam: Full ROM, Normal Inspection. absent: Lymphadenopathy - Respiratory Exam Respiratory Exam: Clear to Ausculation Bilateral, NORMAL BREATHING PATTERN - Cardiovascular Exam Cardiovascular Exam: REGULAR RHYTHM, +S1, +S2. absent: Murmur - GI/Abdominal Exam GI & Abdominal Exam: Soft, Normal Bowel Sounds. absent: Tenderness - Rectal Exam Rectal Exam: NORMAL INSPECTION - Exam Exam: Circumcision, NORMAL INSPECTION External exam: NORMAL EXTERNAL EXAM Speculum exam: NORMAL SPECULUM EXAM Bimanual exam: NORMAL BIMANUAL EXAM - Extremities Exam Extremities Exam: Full ROM, Normal Capillary Refill, Normal Inspection. absent: Joint Swelling, Pedal Edema - Back Exam Back Exam: NORMAL INSPECTION - Neurological Exam Neurological Exam: Alert, Awake, CN II-XII Intact, Normal Gait, Oriented x3 - Psychiatric Exam Psychiatric exam: Normal Affect, Normal Mood - Skin Skin Exam: Dry, Intact, Normal Color, Warm Assessment and Plan (1) CHF exacerbation Status: Acute (2) CAD (coronary artery disease), [place] coronary artery Status: Acute (3) Dyspnea Status: Acute (4) Hyperglycemia Status: Acute (5) Diabetes Status: Chronic (6) Hyperlipidemia Status: Chronic (7) Hypertension Status: Chronic
[2018-12-14 08:42] LABS: BLOOD UREA NITROGEN 29 mg/dL (9-20); CALCIUM 8.8 mg/dl (8.6-10.4); GFR NON-AFRICAN AMERICAN > 60
[2018-12-14] MEDS: Magnesium Oxide 400 mg Tab UD PO SCH (10:12)
[2018-12-14 10:13] VITALS: BP 112/62
[2018-12-14] MEDS: Metoprolol Succinate 25 mg XL Tab PO SCH (10:13)
[2018-12-14 12:41] LABS: B-TYPE NATRIURETIC PEPTIDE 889 pg/mL (0-900)
[2018-12-14 15:55] VITALS: PULSE 90
--- NOTE | 2018-12-14 16:20 | CP.PCM.PN ---
Subjective - Date & Time of Evaluation Date of Evaluation: 12/14/18 Time of Evaluation: 16:19 Objective - Vital Signs/Intake and Output Vital Signs (last 24 hours): Temp Pulse Resp BP Pulse Ox 97.7 F 90 20 112/62 100 12/14/18 07:15 12/14/18 15:15 12/14/18 07:15 12/14/18 10:12 12/14/18 07:15 - Medications Medications: Current Medications Acetaminophen (Tylenol 325mg Tab) 650 mg PO Q6 PRN PRN Reason: Pain, moderate (4-7) Last Admin: 12/13/18 23:47 Dose: 650 mg Albuterol/Ipratropium (Duoneb 3 Mg/0.5 Mg (3 Ml) Ud) 3 ml INH RQ6 [facility] Last Admin: 12/14/18 13:41 Dose: Not Given Aspirin (Aspirin Chewable) 81 mg PO DAILY [facility] Last Admin: 12/14/18 10:12 Dose: 81 mg Clopidogrel Bisulfate (Plavix) 75 mg PO DAILY [facility] Last Admin: 12/14/18 10:12 Dose: 75 mg Famotidine (Pepcid) 20 mg PO DAILY [facility] Last Admin: 12/14/18 10:12 Dose: 20 mg Furosemide (Lasix) 40 mg IVP DAILY [facility] Last Admin: 12/14/18 10:12 Dose: 40 mg Gabapentin (Neurontin) 400 mg PO TID [facility] Last Admin: 12/14/18 13:40 Dose: 400 mg Insulin Aspart (Novolog) 0 unit SC [facility]; Protocol Last Admin: 12/14/18 12:08 Dose: 2 units Insulin Aspart (Novolog Mix 70/30 (70/30 Units/Ml)) 16 units SC DAILY@7645,4335 [facility] Last Admin: 12/14/18 08:00 Dose: 16 units Losartan Potassium (Cozaar) 100 mg PO DAILY [facility] Last Admin: 12/14/18 10:28 Dose: Not Given Magnesium Oxide (Mag-Ox) 400 mg PO DAILY [facility] Last Admin: 12/14/18 10:12 Dose: 400 mg Metformin HCl (Glucophage) 1,000 mg PO BIDCC [facility] Last Admin: 12/14/18 08:00 Dose: 1,000 mg Metoprolol Succinate (Toprol Xl) 25 mg PO DAILY [facility] Last Admin: 12/14/18 10:13 Dose: 25 mg Nicotine (Nicoderm Cq) 1 patch TD DAILY [facility] Last Admin: 12/14/18 10:12 Dose: 1 patch Rosuvastatin Calcium (Crestor) 10 mg PO HS [facility] Last Admin: 12/13/18 22:12 Dose: 10 mg - Labs Labs: 12/10/18 21:41 12/14/18 08:12 PT 11.4 SECONDS (9.7-12.2) 12/10/18 21:41 INR 1.0 12/10/18 21:41 APTT 31 SECONDS (21-34) 12/10/18 21:41 Assessment and Plan - Assessment and Plan (Free Text) Assessment: FOLLOW UP WITH DR STODDARD IN HIS OFFICE -----CALL FOR APPOINTMENT FOLLOW UP WITH DR MARY IN HIS OFFICE FOLLOW UP WITH YOUR HOMEWORKER APPOINTMENT AT [facility] [facility] NEW PRESCRIPTION GIVEN ALDACTONE AND LASIX ACTIVITY TOLERATED CALL DR STODDARD OR GO TO THE EMERGENCY ROOM IF SYMPTOM RETURN OR WORSENING
--- NOTE | 2018-12-14 21:45 | CP.PCM.DIS ---
Provider - Provider Date of Admission: 12/10/18 22:20 Attending physician: Esau Gordillo MD Consults: 12/11/18 05:06 Cardiology Consult Routine Comment: Consulting Provider: Arsenio Lang Consulting Physician: Arsenio Lang Reason for Consult: SOB, CHF exacerbation Time Spent in preparation of Discharge (in minutes): 30 Hospital Course - Lab Results Lab Results: Micro Results 12/12/18 12:29 Nose MRSA Culture - Final MRSA NOT DETECTED 12/11/18 05:25 Nose MRSA Culture (Admit) - Final MRSA NOT DETECTED Most Recent Lab Values WBC 6.8 K/uL (4.8-10.8) 12/10/18 21:41 RBC 4.18 Mil/uL (4.40-5.90) L 12/10/18 21:41 Hgb 11.4 g/dL (12.0-18.0) L 12/10/18 21:41 Hct 34.5 % (35.0-51.0) L 12/10/18 21:41 MCV 82.6 fL (80.0-94.0) 12/10/18 21:41 MCH 27.2 pg (27.0-31.0) 12/10/18 21:41 MCHC 32.9 g/dL (33.0-37.0) L 12/10/18 21:41 RDW 15.8 % (11.5-14.5) H 12/10/18 21:41 Plt Count 205 K/uL (130-400) 12/10/18 21:41 MPV 8.6 fL (7.2-11.7) 12/10/18 21:41 Neut % (Auto) 74.7 % (50.0-75.0) 12/10/18 21:41 Lymph % (Auto) 16.6 % (20.0-40.0) L 12/10/18 21:41 Mills % (Auto) 5.8 % (0.0-10.0) 12/10/18 21:41 Eos % (Auto) 2.1 % (0.0-4.0) 12/10/18 21:41 Baso % (Auto) 0.8 % (0.0-2.0) 12/10/18 21:41 Neut # (Auto) 5.1 K/uL (1.8-7.0) 12/10/18 21:41 Lymph # (Auto) 1.1 K/uL (1.0-4.3) 12/10/18 21:41 Mills # (Auto) 0.4 K/uL (0.0-0.8) 12/10/18 21:41 Eos # (Auto) 0.1 K/uL (0.0-0.7) 12/10/18 21:41 Baso # (Auto) 0.1 K/uL (0.0-0.2) 12/10/18 21:41 PT 11.4 SECONDS (9.7-12.2) 12/10/18 21:41 INR 1.0 12/10/18 21:41 APTT 31 SECONDS (21-34) 12/10/18 21:41 Sodium 132 mmol/L (132-148) 12/14/18 08:12 Potassium 4.1 mmol/L (3.6-5.2) 12/14/18 08:12 Chloride 100 mmol/L (98-107) 12/14/18 08:12 Carbon Dioxide 29 mmol/L (22-30) 12/14/18 08:12 Anion Gap 8 (10-20) L 12/14/18 08:12 BUN 29 mg/dL (9-20) H 12/14/18 08:12 Creatinine 1.1 mg/dL (0.8-1.5) 12/14/18 08:12 Est GFR ( Amer) > 60 12/14/18 08:12 Est GFR (Non-Af Amer) > 60 12/14/18 08:12 POC Glucose (mg/dL) 368 mg/dL (65-110) H 12/14/18 17:13 Random Glucose 258 mg/dL (75-110) H D 12/14/18 08:12 Calcium 8.8 mg/dl (8.6-10.4) 12/14/18 08:12 Phosphorus 3.4 mg/dL (2.5-4.5) 12/10/18 21:41 Magnesium 1.7 mg/dL (1.6-2.3) 12/10/18 21:41 Total Bilirubin 0.6 mg/dL (0.2-1.3) 12/10/18 21:41 AST 32 U/L (17-59) 12/10/18 21:41 ALT 41 U/L (21-72) 12/10/18 21:41 Alkaline Phosphatase 132 U/L (38-126) H 12/10/18 21:41 Total Creatine Kinase 54 U/L (55-170) L 12/11/18 11:54 CK-MB (Mass) 1.22 ng/mL (0.0-3.38) 12/11/18 11:54 Troponin I 0.0170 ng/mL (0.00-0.120) 12/11/18 11:54 NT-Pro-B Natriuret Pep 889 pg/mL (0-900) 12/14/18 08:12 Total Protein 6.7 g/dL (6.3-8.3) 12/10/18 21:41 Albumin 3.7 g/dL (3.5-5.0) 12/10/18 21:41 Globulin 3.0 gm/dL (2.2-3.9) 12/10/18 21:41 Albumin/Globulin Ratio 1.2 (1.0-2.1) 12/10/18 21:41 Discharge Exam - Head Exam Head Exam: ATRAUMATIC, NORMAL INSPECTION, NORMOCEPHALIC Discharge Plan - Discharge Medications Prescriptions: Spironolactone [Aldactone] 25 mg PO DAILY 30 Days tab Furosemide [Lasix] 40 mg PO BID 30 Days tab - Follow Up Plan Condition: GUARDED Disposition: HOME/ ROUTINE Instructions: Heart Healthy Diet, Diabetes Exchange Diet, Heart Failure, Adult (DC), Diabetes Diet , Furosemide, Spironolactone Additional Instructions: FOLLOW UP WITH DR GORDILLO IN HIS OFFICE -----CALL FOR APPOINTMENT FOLLOW UP WITH DR LANG IN HIS OFFICE FOLLOW UP WITH YOUR RUBBER TIRE CURER APPOINTMENT AT [place] [facility] NEW PRESCRIPTION GIVEN ALDACTONE AND LASIX ACTIVITY TOLERATED CALL DR GORDILLO OR GO TO THE EMERGENCY ROOM IF SYMPTOM RETURN OR WORSENING Referrals: Arsenio Lang MD [Staff Provider] - Esau Gordillo MD [Staff Provider] -
--- NOTE | 2018-12-15 07:39 | DS ---
DISCHARGE DIAGNOSES: 1. Acute exacerbation of congestive heart failure. 2. Coronary artery disease. 3. Hypertension. 4. Diabetes. 5. Asthma. REASON FOR ADMISSION: This is a 63-year-old male who is noncompliant with his diet, medication, and followup. He has chronic systolic heart failure with low LV ejection fraction. Ischemic heart disease with multiple stents done to his heart. He is noncompliant with his diet, medication, and followup who came in with dyspnea on exertion, orthopnea, PND, leg swelling, dyspnea at rest as well. HOSPITAL COURSE: The patient was admitted to ICU, started on diuretics, intake and output daily, body weight. His echocardiogram showed ejection fraction repeat on 30% to 35%. The patient needs AICD he will be referred to electrophysiology for AICD. Condition upon discharge is stable. During course of hospitalization, the patient was seen by Cardiology. Esau Gordillo MD
== END 2018-12-14 17:57 | disposition home or self-care (01) | DRG 544 ==
LOC: C.ER 21:08 → C.9E 22:20 → C.9I 12-11 02:40 → C.6T 12-12 10:50 → C.9I 12-12 10:57 → C.6T 12-12 11:14
PROVIDERS: ADMIT Internal Medicine; ATTEND Internal Medicine
DX: I13.0 Hypertensive heart and chronic kidney disease with heart failure and stage 1 through stage 4 chronic kidney disease, or unspecified chronic kidney disease (principal); I50.23 Acute on chronic systolic (congestive) heart failure; J44.9 Chronic obstructive pulmonary disease, unspecified; N18.9 Chronic kidney disease, unspecified; E11.65 Type 2 diabetes mellitus with hyperglycemia; E11.22 Type 2 diabetes mellitus with diabetic chronic kidney disease; I25.10 Atherosclerotic heart disease of native coronary artery without angina pectoris; I25.5 Ischemic cardiomyopathy; E78.5 Hyperlipidemia, unspecified; F17.210 Nicotine dependence, cigarettes, uncomplicated; Z21 Asymptomatic human immunodeficiency virus [HIV] infection status; E78.00 Pure hypercholesterolemia, unspecified; Z95.5 Presence of coronary angioplasty implant and graft; Z91.14 Patient's other noncompliance with medication regimen; Z91.11 Patient's noncompliance with dietary regimen